=== PATIENT | male | born 1950 | race Caucasian/White ===

== ENCOUNTER → 2017-06-11 11:07 | Outpatient (CLI) | payer MEDICARE, MEDICAID, SELFPAY ==
[2017-06-11 12:09] LABS: PSA,Total - Annual Screen 1.69 ng/mL (0.00-4.00)
== END ==
PROVIDERS: Family Provider Family Medicine Geriatric Medicine; PCP Family Medicine Geriatric Medicine; Visit Provider Urology
DX: Z12.5 Encounter for screening for malignant neoplasm of prostate (principal)
CPT/HCPCS: 36415; 84153; G0103

== ENCOUNTER → 2017-08-28 12:02 | Outpatient (CLI) | payer MEDICARE, MEDICAID, SELFPAY ==
[2017-08-28 13:11] LABS: Absolute Lymphocyte Count 2.52 X10^3/ul (0.83-4.51); Absolute Neutrophil Count 6.2 X10^3/uL (2.0-7.7); Basophil# 0.04 X10^3/uL; Basophil% 0.4 % (0-1); Eosinophil# 0.47 X10^3/uL; Eosinophils% 4.7 % (0-5); Hematocrit 43.8 % (40-54); Lymphocyte # 2.52 X10^3/ul (4.0); Lymphocyte % 25.4 % (19-41); Mean Corp Hgb Conc 34.2 g/gl (32-36); Mean Corpuscular Hgb 32.9 pg (27.0-32.0); Mean Corpuscular Volume 96.1 fL (80-94); Mean Platelet Vol. 10.1 fl (6.2-12.0); Monocyte# 0.62 X10^3/uL; Monocyte% 6.3 % (0-10); Neutrophil # 6.23 X10^3/uL (2.7-7.7); Neutrophil % 62.9 % (47-70); Platelet Count 216 K/mm3 (150-450); RBC Distribution Width CV 13.6 % (11.6-14.6); RBC Distribution Width SD 46.7 fl (35.1-43.9); Red Blood Count 4.56 M/mm3 (4.6-6.2); White Blood Count 9.9 K/mm3 (4.4-11.0)
[2017-08-28 13:12] LABS: POSITIVE COUNT NO; POSITIVE DIFFERENTIAL NO; POSITIVE MORPHOLOGY NO
[2017-08-28 13:33] LABS: AST(SGOT) 9 U/L (15-37); Alanine Aminotransfer ALT/SGPT 20 U/L (16-61); Albumin, Serum 3.6 g/dL (3.2-5.0); Alkaline Phosphatase 80 U/L (45-117); Anion Gap 6 (5-15); BUN 16 mg/dL (7-18); BUN/Creat Ratio 18.2 RATIO (10-20); Calcium,Total 8.6 mg/dL (8.5-10.1); Chloride 109 mmol/L (98-107); Creatinine, Serum 0.88 mg/dL (0.70-1.30); EST Glomerular Filtration Rate 92 mL/min (>60); Est Glom Filt Rate - Afr Amer 111 mL/min (>60); Globulin 3.6 g/dL (2.2-4.2); Glucose 83 mg/dL (74-106); PSA,Total - Annual Screen 1.74 ng/mL (0.00-4.00); Potassium 4.2 mmol/L (3.5-5.1); Protein, Total 7.2 g/dL (6.4-8.2); Sodium Level 143 mmol/L (136-145)
[2017-08-28 13:50] LABS: Vitamin D,25 Hydroxy 19.5 ng/mL (29.95-100.01)
== END ==
PROVIDERS: Family Provider Family Medicine Geriatric Medicine; PCP Family Medicine Geriatric Medicine; Visit Provider Family Medicine Geriatric Medicine
DX: E55.9 Vitamin D deficiency, unspecified (principal); R53.83 Other fatigue; Z12.5 Encounter for screening for malignant neoplasm of prostate
CPT/HCPCS: 36415; 80053; 82306; 84153; 84443; 85025; G0103

== ENCOUNTER → 2017-09-04 06:46 | Outpatient (CLI) | payer MEDICARE, MEDICAID, SELFPAY ==
--- NOTE | 2017-09-04 06:53 | CT_ITS ---
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 RADIATION DOSAGE (If Supplied By Facility): CTDIvol = ( 3.02 ) mGy, DLP = ( 223.48 ) mGycm TECHNIQUE: No contrast was administered. Low dose technique was utilized (average mAS-38 and kVp 120). 1.25 mm axial source images with a slice interval of 1.25-mm were reconstructed in lung windows. 2.5 mm axial source images with a slice interval of 2.5-mm were reconstructed in lung windows. 5.0 mm axial source images with a slice interval of 5.0-mm were reconstructed in soft tissue windows. Nodule measured using lung windows on PACS and/or independent workstation with automated measurement of minimum and maximum diameter. Nodule measurement reported as average diameter rounded to the nearest whole number. Growth is defined as an increase ins size of greater than 1.5 mm. COMPARISON: Comparison is made with prior CT scan of the thorax dated August 31, 2016. NODULES: Stable appearance of the peripherally located nodular densities in the lung apices and upper lobes. This is suggestive of scarring. Emphysema: Emphysematous changes. Stable appearance of the subpleural blebs more prominent in the posterior medial segments of both lower lobes. Mediastinal nodes: Small benign-appearing mediastinal lymph nodes. CT/Low Dose CT Lung Screening IMPRESSION: Lung-RADS category 2 - Continue annual screening with LDCT in 12 months. IMPORTANT NOTES FOR USE: ACR Lung-RADS Version 1.0 Assessment Categories Release Date: August 10, 2013 Category: Coded 0-4 bases on nodule(s) with highest degree of suspicion. Negative screen is defined as categories 1 and 2; a positive screen is defined as categories 3 and 4. Category 3 and 4A nodules that are unchanged on interval CT should be coded as category 2, and individuals returned to screening in 12 months. Category 4X: Category 3 or 4 nodules with additional imaging findings that increase the suspicion of lung cancer, such as spiculation, GGN that doubles in size in 1 year, enlarged lymph notes, etc. Category Modifiers: S (significant finding unrelated to lung cancer) and C (prior history of treated lung cancer) may be added to the 0-4 Lung-RADS Electronically Signed: Daniel Ramos MD at 13:47 EDT Tel [phone], Service support ,
== END ==
PROVIDERS: Family Provider Family Medicine Geriatric Medicine; PCP Family Medicine Geriatric Medicine; Visit Provider Family Medicine Geriatric Medicine
DX: Z87.891 Personal history of nicotine dependence (principal)
CPT/HCPCS: G0297

== ENCOUNTER 2017-12-03 09:17 | Day surgery (SDC) | payer MEDICARE, MEDICAID, SELFPAY ==
[2017-12-03] VITALS (8 sets, daily range): BP systolic 80–110; BP diastolic 53–81; PULSE 67–89; RESP 16–18; TEMP 36.5–36.8; O2SAT 95–100; BMI 21.4
--- NOTE | 2017-12-03 11:50 | PCM.OPRPT ---
Problem List (1) Screen for colon cancer Status: Acute Report of Operation Date of Procedure: 12/03/17 Pre-Operative Diagnosis: Screening colonoscopy Post-Operative Diagnosis: Normal colonoscopy Surgery/Procedure Performed:: Colonoscopy Description of Procedure: The major risks and benefits associated with the procedure were explained to the patient in detail. The patient verbalized understanding and agreement with the same. The patient was brought to the endoscopy suite. After adequate sedation was achieved, the patient was placed in the left lateral decubitus position and a digital rectal exam was performed. This examination was within normal limits. A well-lubricated colonoscope was then inserted into the rectum and advanced under direct visualization to the level of the cecum. The bowel prep was good. The cecum was identified by both visual and anatomic landmarks. A photograph was taken of the end of the cecum. The scope was then fully withdrawn while examining the color, texture, anatomy and integrity of the mucosa from the cecum to the anal canal. The findings were consistent with normal colonic mucosa. Over 6 minutes were taken to examine the colonic mucosa. Upon reaching the rectum the scope was retroflexed to examine the distal rectal vault. The scope was then straightened and was completely retrieved upon exiting the anal canal and the procedure was terminated. The patient was then transferred to the recovery room in stable condition. Recommendations for follow up: 10 years
== END 2017-12-03 12:53 | disposition home or self-care (01) ==
PROVIDERS: Family Provider Family Medicine Geriatric Medicine; PCP Family Medicine Geriatric Medicine; Visit Provider Surgery
PROC: 0DJD8ZZ Inspection of Lower Intestinal Tract, Via Natural or Artificial Opening Endoscopic (ICD-10-PCS; CPT 45378; principal; 2017-12-03 10:40)
DX: Z12.11 Encounter for screening for malignant neoplasm of colon (principal); F41.1 Generalized anxiety disorder; E78.5 Hyperlipidemia, unspecified; F79 Unspecified intellectual disabilities; N32.81 Overactive bladder; F32.9 Major depressive disorder, single episode, unspecified; Z79.899 Other long term (current) drug therapy; F17.200 Nicotine dependence, unspecified, uncomplicated
CPT/HCPCS: G0121; J7120

== ENCOUNTER → 2018-06-13 12:10 | Outpatient (CLI) | payer MEDICARE, MEDICAID, SELFPAY ==
--- NOTE | 2018-06-13 12:21 | CT_ITS ---
STUDY: CT BRAIN WITHOUT CONTRAST REASON FOR EXAM: Male, 68 years old. Delirium. RADIATION DOSAGE (If Supplied By Facility): CTDIvol = ( 44.99 ) mGy, DLP = ( 829.85 ) mGycm TECHNIQUE: Transaxial CT imaging of the brain was performed without administration of intravenous contrast material. Individualized dose optimization techniques were used for this CT. COMPARISON: None. FINDINGS: Normal soft tissue structures. Normal calvarium. There is mild cerebral atrophy with widening of the extra-axial spaces and ventricular dilatation. Normal white matter tracts of the cerebral hemispheres. Normal basal ganglia and thalami. Normal brainstem. Normal cerebellum. There is a 1.2 cm x 0.7 cm partially calcified nodule arising from the left side of the cerebral falx in the region of the convexity of the left frontal parietal lobe. This may represent a small meningioma. There is no intracranial hemorrhage. There are no findings of an acute ischemic infarction. Normal visualized paranasal sinuses. CT/Brain/Head without Contrast IMPRESSION: Chronic involutional changes of the brain. Findings suggestive of a 1.2 cm x 0.7 cm partially calcified meningioma arising from the anterior aspect of the cerebral falx as described. Electronically Signed: Daniel Ramos, at 12:49 EST , Service support ,
[2018-06-13 12:53] LABS: Absolute Lymphocyte Count 2.31 X10^3/ul (0.83-4.51); Absolute Neutrophil Count 5.4 X10^3/uL (2.0-7.7); Basophil# 0.04 X10^3/uL; Basophil% 0.4 % (0-1); Eosinophil# 0.48 X10^3/uL; Eosinophils% 5.4 % (0-5); Hemoglobin 14.2 g/dl (13.0-16.5); Lymphocyte # 2.31 X10^3/ul (4.0); Lymphocyte % 25.9 % (19-41); Mean Corpuscular Hgb 31.8 pg (27.0-32.0); Mean Corpuscular Volume 96.4 fL (80-94); Mean Platelet Vol. 9.7 fl (6.2-12.0); Monocyte# 0.65 X10^3/uL; Monocyte% 7.3 % (0-10); Neutrophil # 5.44 X10^3/uL (2.7-7.7); Neutrophil % 60.9 % (47-70); Platelet Count 183 K/mm3 (150-450); RBC Distribution Width CV 14.1 % (11.6-14.6); RBC Distribution Width SD 49.4 fl (35.1-43.9); Red Blood Count 4.46 M/mm3 (4.6-6.2); White Blood Count 8.9 K/mm3 (4.4-11.0)
[2018-06-13 12:54] LABS: POSITIVE COUNT NO; POSITIVE DIFFERENTIAL NO; POSITIVE MORPHOLOGY NO
[2018-06-13 13:09] LABS: AST(SGOT) 12 U/L (15-37); Alanine Aminotransfer ALT/SGPT 16 U/L (16-61); Albumin, Serum 3.4 g/dL (3.2-5.0); Alkaline Phosphatase 68 U/L (45-117); Anion Gap 4 (5-15); BUN 15 mg/dL (7-18); BUN/Creat Ratio 17.6 RATIO (10-20); Calcium,Total 8.4 mg/dL (8.5-10.1); Chloride 113 mmol/L (98-107); Creatinine, Serum 0.85 mg/dL (0.70-1.30); EST Glomerular Filtration Rate 95 mL/min (>60); Est Glom Filt Rate - Afr Amer 115 mL/min (>60); Globulin 3.4 g/dL (2.2-4.2); Glucose 85 mg/dL (74-106); Potassium 4.4 mmol/L (3.5-5.1); Protein, Total 6.8 g/dL (6.4-8.2); Sodium Level 144 mmol/L (136-145)
== END ==
PROVIDERS: Family Provider Family Medicine Geriatric Medicine; PCP Family Medicine Geriatric Medicine; Referring Provider Family Medicine Geriatric Medicine; Visit Provider Family Medicine Geriatric Medicine
DX: F05 Delirium due to known physiological condition (principal)
CPT/HCPCS: 36415; 70450; 80053; 85025

== ENCOUNTER → 2018-06-24 10:18 | Outpatient (CLI) | payer MEDICARE, MEDICAID, SELFPAY ==
[2017-12-03 09:34] VITALS: BMI 21.4
[2018-06-24 12:21] LABS: PSA,Total- Diagnostic 2.04 ng/mL (0.0-4.0)
== END ==
PROVIDERS: Family Provider Family Medicine Geriatric Medicine; PCP Family Medicine Geriatric Medicine; Referring Provider Urology; Visit Provider Urology
DX: N40.1 Benign prostatic hyperplasia with lower urinary tract symptoms (principal); Z12.5 Encounter for screening for malignant neoplasm of prostate
CPT/HCPCS: 36415; 84153

== ENCOUNTER → 2018-08-29 | Outpatient (CLI) | payer MEDICARE, MEDICAID, SELFPAY ==
[2017-12-03 09:34] VITALS: BMI 21.4
[2018-08-29 13:32] LABS: Absolute Lymphocyte Count 2.36 X10^3/ul (0.83-4.51); Absolute Neutrophil Count 7.1 X10^3/uL (2.0-7.7); Basophil# 0.05 X10^3/uL; Basophil% 0.5 % (0-1); Eosinophil# 0.42 X10^3/uL; Lymphocyte # 2.36 X10^3/ul (4.0); Lymphocyte % 22.2 % (19-41); Mean Corp Hgb Conc 34.1 g/gl (32-36); Mean Corpuscular Hgb 32.5 pg (27.0-32.0); Mean Corpuscular Volume 95.2 fL (80-94); Monocyte# 0.71 X10^3/uL; Monocyte% 6.7 % (0-10); Neutrophil # 7.06 X10^3/uL (2.7-7.7); Neutrophil % 66.4 % (47-70); Platelet Count 233 K/mm3 (150-450); RBC Distribution Width SD 48.9 fl (35.1-43.9); Red Blood Count 4.62 M/mm3 (4.6-6.2); White Blood Count 10.6 K/mm3 (4.4-11.0)
[2018-08-29 13:33] LABS: POSITIVE COUNT NO; POSITIVE DIFFERENTIAL NO; POSITIVE MORPHOLOGY NO
[2018-08-29 13:39] LABS: Vitamin D,25 Hydroxy 9.9 ng/mL (29.95-100.01)
[2018-08-29 13:45] LABS: ALB/GLOB Ratio 0.8 RATIO (0.9-2.4); AST(SGOT) 10 U/L (15-37); Alanine Aminotransfer ALT/SGPT 20 U/L (16-61); Albumin, Serum 3.3 g/dL (3.2-5.0); Alkaline Phosphatase 93 U/L (45-117); Anion Gap 6 (5-15); BUN 20 mg/dL (7-18); BUN/Creat Ratio 19.4 RATIO (10-20); Calcium,Total 8.5 mg/dL (8.5-10.1); Chloride 114 mmol/L (98-107); Creatinine, Serum 1.03 mg/dL (0.70-1.30); EST Glomerular Filtration Rate 76 mL/min (>60); Est Glom Filt Rate - Afr Amer 92 mL/min (>60); Globulin 3.9 g/dL (2.2-4.2); Glucose 71 mg/dL (74-106); PSA,Total - Annual Screen 1.64 ng/mL (0.00-4.00); Potassium 4.1 mmol/L (3.5-5.1); Protein, Total 7.2 g/dL (6.4-8.2); Sodium Level 147 mmol/L (136-145); Thyroid Stim Hormone (TSH) 1.87 uIU/mL (0.358-3.74)
== END | disposition home or self-care (01) ==
LOC: POLAB3 12:03
PROVIDERS: Family Provider Family Medicine Geriatric Medicine; PCP Family Medicine Geriatric Medicine; Visit Provider Family Medicine Geriatric Medicine
DX: E55.9 Vitamin D deficiency, unspecified (principal); R53.83 Other fatigue; Z12.5 Encounter for screening for malignant neoplasm of prostate
CPT/HCPCS: 36415; 80053; 82306; 84153; 84443; 85025; G0103

== ENCOUNTER → 2018-09-25 | Outpatient (CLI) | payer MEDICARE, MEDICAID, SELFPAY ==
[2017-12-03 09:34] VITALS: BMI 21.4
--- NOTE | 2018-09-25 13:07 | CT_ITS ---
STUDY: LOW DOSE CT LUNG CANCER SCREENING REASON FOR EXAM: Male, 68 years old. History of 50 pack-year smoker. RADIATION DOSAGE (If Supplied By Facility): CTDIvol = ( 3.02 ) mGy, DLP = ( 95.91 ) mGycm TECHNIQUE: No contrast was administered. Low dose technique was utilized (average mAS-38 and kVp 120). 1.25 mm axial source images with a slice interval of 1.25-mm were reconstructed in lung windows. 2.5 mm axial source images with a slice interval of 2.5-mm were reconstructed in lung windows. 5.0 mm axial source images with a slice interval of 5.0-mm were reconstructed in soft tissue windows. Nodule measured using lung windows on PACS and/or independent workstation with automated measurement of minimum and maximum diameter. Nodule measurement reported as average diameter rounded to the nearest whole number. Growth is defined as an increase ins size of greater than 1.5 mm. COMPARISON: Comparison is made with prior examination dated September 04, 2017. NODULES: Nodular thickening in the lung apices with subpleural blebs in keeping with the scarring. These are unchanged. Stable 6 mm peripherally based partially calcified nodule in the lateral aspect of the right upper lobe. Stable pleural based soft tissue densities in the lateral aspect of the upper lobes. Emphysema: Bolus changes worse in the superior segment of the left lower lobe. Mild scarring in the right middle lobe. Mediastinal nodes: Small benign-appearing mediastinal lymph nodes. Other chest and abdominal findings: CT/Low Dose CT Lung Screening IMPRESSION: Lung-RADS category 2 - Continue annual screening with LDCT in 12 months. IMPORTANT NOTES FOR USE: ACR Lung-RADS Version 1.0 Assessment Categories Release Date: August 10, 2013 Category: Coded 0-4 bases on nodule(s) with highest degree of suspicion. Negative screen is defined as categories 1 and 2; a positive screen is defined as categories 3 and 4. Category 3 and 4A nodules that are unchanged on interval CT should be coded as category 2, and individuals returned to screening in 12 months. Category 4X: Category 3 or 4 nodules with additional imaging findings that increase the suspicion of lung cancer, such as spiculation, GGN that doubles in size in 1 year, enlarged lymph notes, etc. Category Modifiers: S (significant finding unrelated to lung cancer) and C (prior history of treated lung cancer) may be added to the 0-4 Lung-RADS Electronically Signed: Daniel Ramos, at 13:36 EDT , Service support ,
== END | disposition home or self-care (01) ==
LOC: CT 13:05
PROVIDERS: Family Provider Family Medicine Geriatric Medicine; PCP Family Medicine Geriatric Medicine; Referring Provider Family Medicine Geriatric Medicine; Visit Provider Family Medicine Geriatric Medicine
DX: Z87.891 Personal history of nicotine dependence (principal); F17.200 Nicotine dependence, unspecified, uncomplicated
CPT/HCPCS: G0297

== ENCOUNTER → 2018-11-28 | Outpatient (CLI) | payer MEDICARE, MEDICAID, SELFPAY ==
[2017-12-03 09:34] VITALS: BMI 21.4
== END | disposition home or self-care (01) ==
PROVIDERS: Family Provider Family Medicine Geriatric Medicine; PCP Family Medicine Geriatric Medicine; Referring Provider Family Medicine Geriatric Medicine; Visit Provider Family Medicine Geriatric Medicine
DX: Z00.00 Encounter for general adult medical examination without abnormal findings (principal)

== ENCOUNTER → 2019-03-17 15:21 | Outpatient (CLI) | payer MEDICARE, MEDICAID, SELFPAY ==
[2017-12-03 09:34] VITALS: BMI 21.4
[2019-03-17 16:53] LABS: PSA,Total- Diagnostic 2.02 ng/mL (0.0-4.0)
== END ==
PROVIDERS: Family Provider Family Medicine Geriatric Medicine; PCP Family Medicine Geriatric Medicine; Referring Provider Urology; Visit Provider Urology
DX: N40.1 Benign prostatic hyperplasia with lower urinary tract symptoms (principal); R35.0 Frequency of micturition
CPT/HCPCS: 36415; 84153

== ENCOUNTER → 2019-12-15 | Outpatient (CLI) | payer MEDICARE, MEDICAID, SELFPAY ==
[2019-12-15 18:28] LABS: Color, Urine Yellow (Yellow); Glucose, Dipstick Normal (Normal); Ketone-Dipstick 5 mg/dl (Negative); Leukocyte Esterase-Dipstick 500 /ul (Negative); Nitrite-Dipstick Negative (Negative); Occult Blood-Urine 250 /ul (Negative); Protein-Dipstick 100 mg/dl (Negative); Urine Bilirubin Dipstick Negative (Negative); Urine Clarity Sl. Cloudy (Clear); Urine Urobilinogen Normal (Normal)
== END | disposition home or self-care (01) ==
LOC: LABSPEC 17:08
PROVIDERS: PCP Family Medicine; Referring Provider Family Medicine; Visit Provider Family Medicine
DX: R30.0 Dysuria (principal)
CPT/HCPCS: 81002; 87086; 87088

== ENCOUNTER → 2020-01-14 14:11 | Outpatient (CLI) | payer MEDICARE, MEDICAID, SELFPAY ==
--- NOTE | 2020-01-14 14:19 | CT_ITS ---
STUDY: LOW DOSE CT LUNG CANCER SCREENING REASON FOR EXAM: Male, 69 years old. LUNG SCREENING, 2 ppd x 40 yrs. RADIATION DOSAGE (If Supplied By Facility): CTDIvol = ( 3.02 ) mGy, DLP = ( 96.28 ) mGycm TECHNIQUE: No contrast was administered. Low dose technique was utilized (average mAS-38 and kVp 120). 1.25 mm axial source images with a slice interval of 1.25-mm were reconstructed in lung windows. 2.5 mm axial source images with a slice interval of 2.5-mm were reconstructed in lung windows. 5.0 mm axial source images with a slice interval of 5.0-mm were reconstructed in soft tissue windows. Nodule measured using lung windows on PACS and/or independent workstation with automated measurement of minimum and maximum diameter. Nodule measurement reported as average diameter rounded to the nearest whole number. Growth is defined as an increase ins size of greater than 1.5 mm. COMPARISON: Comparison is made with prior study dated 09/25/2008. NODULES: Irregular nodular densities in both lung apices with areas of scarring suggestive of scarring. Stable examination. Emphysema: Hyperinflation. Emphysematous changes with evidence of bullous formation more prominent in the medial posterior aspects of both upper lobes worse on the left side. Endobronchial lesion: None Aorta: Minimal dilatation of the root of the aorta measuring 4.1 cm. Coronary arteries: Unremarkable. Heart: Unremarkable. Mediastinal nodes: Small mediastinal lymph nodes. Other chest and abdominal findings: Mild degenerative changes of the thoracic spine. CT/Chest without Contrast IMPRESSION: Lung-RADS category 2 - Continue annual screening with LDCT in 12 months. IMPORTANT NOTES FOR USE: ACR Lung-RADS Version 1.0 Assessment Categories Release Date: August 10, 2013 Category: Coded 0-4 bases on nodule(s) with highest degree of suspicion. Negative screen is defined as categories 1 and 2; a positive screen is defined as categories 3 and 4. Category 3 and 4A nodules that are unchanged on interval CT should be coded as category 2, and individuals returned to screening in 12 months. Category 4X: Category 3 or 4 nodules with additional imaging findings that increase the suspicion of lung cancer, such as spiculation, GGN that doubles in size in 1 year, enlarged lymph notes, etc. Category Modifiers: S (significant finding unrelated to lung cancer) and C (prior history of treated lung cancer) may be added to the 0-4 Lung-RADS Electronically Signed: Daniel Ramos, at 15:05 EDT , Service support ,
== END ==
PROVIDERS: PCP Family Medicine; Referring Provider Family Medicine; Visit Provider Family Medicine
DX: Z12.2 Encounter for screening for malignant neoplasm of respiratory organs (principal); F17.210 Nicotine dependence, cigarettes, uncomplicated
CPT/HCPCS: 71250

== ENCOUNTER → 2020-12-29 09:35 | Outpatient (CLI) | payer MEDICARE, MEDICAID, SELFPAY ==
[2020-12-29 11:15] LABS: PSA,Total - Annual Screen 1.87 ng/mL (0.00-4.00)
== END ==
PROVIDERS: PCP Family Medicine; Referring Provider Urology; Visit Provider Urology
DX: R35.0 Frequency of micturition (principal); Z12.5 Encounter for screening for malignant neoplasm of prostate
CPT/HCPCS: 36415; 84153; 87086; 87088; G0103

== ENCOUNTER → 2021-01-11 06:38 | Outpatient (CLI) | payer MEDICARE, MEDICAID, SELFPAY ==
--- NOTE | 2021-01-11 17:39 | STRESSREP_ITS ---
Stress Test Report Date: 01-11-2021 Procedure: Pharmacologic stress nuclear imaging study Indications: Chest pain Consent: Per the patient Procedure: The patient underwent pharmacologic (Regadenoson 0.4mg ) evaluation with a peak heart rate of 104 beats per minute (69%predicted maximal heart rate) and a peak blood pressure of 142/88 mmHg. The baseline ECG demonstrated sinus rhythm. The peak pharmacologic ECG demonstrated no obvious ECG changes. [There were no cardiac dysrhythmias pretest, during pharmacologic infusion, or recovery]. [There was no complaint of chest discomfort during pharmacologic infusion or recovery]. The examination was discontinued secondary to completion of protocol. Impression: 1. Pharmacologic (Regadenoson) evaluation 2. Peak pharmacologic ECG with no obvious ECG changes. 3. [There were no cardiac dysrhythmias pretest, during pharmacologic infusion, or recovery]. 4. Nuclear images pending Myocardial perfusion imaging study: Technique: The patient was injected with 14.4 millicuries of technetium 99m Cardiolite and subsequently rest SPECT Cardiolite nuclear imaging was obtained in the horizontal long, vertical long, and short axis views. The patient underwent pharmacologic (Regadenoson) evaluation with a peak heart rate of 104 beats per minute (69% percent predicted maximal heart rate) and a peak blood pressure of 142/88 mmHg. The patient was injected with 44.8 millicuries of technetium 99m Cardiolite and subsequently stress SPECT Cardiolite nuclear imaging was obtained in the horizontal long, vertical long, and short axis views. A gated Cardiolite study at peak stress was obtained. Interpretation: Rest and stress SPECT Cardiolite nuclear imaging status post realignment, normalization, and attenuation correction demonstrate evidence of body motion during image acquisition and otherwise relative uniform tracer uptake and myocardial perfusion appearing within normal limits. [There is end systolic thickening and brightening]. [The gated Cardiolite study demonstrates myocardial thickening and inward wall motion]. The reported LVEF is 65%. Impression: 1. [Rest and stress SPECT Cardiolite nuclear imaging demonstrate relative uniform tracer uptake and myocardial perfusion appearing within normal limits]. 2. The gated Cardiolite study reports an LVEF of 65%. This note was generated with [employer] software. It may contain incorrect words, spelling, and punctuation that were not noted in checking the note before signing.
== END ==
PROVIDERS: PCP Family Medicine; Referring Provider Family Medicine; Visit Provider Family Medicine
DX: R07.9 Chest pain, unspecified (principal)
CPT/HCPCS: 78452; 93017; A9500; A4216; J2785

== ENCOUNTER → 2021-12-26 | Outpatient (CLI) | payer MEDICARE, MEDICAID, SELFPAY ==
[2021-12-26 15:16] LABS: Absolute Lymphocyte Count 1.91 X10^3/uL (0.83-4.51); Absolute Neutrophil Count 5.9 X10^3/uL (2.0-7.7); Basophil# 0.06 X10^3/uL; Basophil% 0.7 % (0-1); Eosinophil# 0.34 X10^3/uL; Eosinophils% 3.9 % (0-5); Hematocrit 43.4 % (40-54); Hemoglobin 14.6 g/dL (13.0-16.5); Lymphocyte # 1.91 X10^3/ul (0.83-4.51); Lymphocyte % 21.7 % (19-41); Mean Corp Hgb Conc 33.6 g/dL (32-36); Mean Corpuscular Hgb 32.4 pg (27.0-32.0); Mean Corpuscular Volume 96.4 fL (80-94); Mean Platelet Vol. 10.1 fl (6.2-12.0); Monocyte# 0.54 X10^3/uL; Monocyte% 6.1 % (0-10); NRBC Flagged by Analyzer 0 % (0-5); Neutrophil % 67.1 % (47-70); Platelet Count 264 K/mm3 (150-450); RBC Distribution Width CV 13.4 % (11.6-14.6); RBC Distribution Width SD 47.6 fl (35.1-43.9); White Blood Count 8.8 K/mm3 (4.4-11.0)
[2021-12-26 15:22] LABS: Color, Urine Yellow (Yellow); Glucose, Dipstick Normal (Normal); Ketone-Dipstick Negative (Negative); Leukocyte Esterase-Dipstick 25 /ul (Negative); Nitrite-Dipstick Negative (Negative); Occult Blood-Urine Negative /ul (Negative); Protein-Dipstick 15 mg/dl (Negative); Urine Bilirubin Dipstick Negative (Negative); Urine Clarity Sl. Cloudy (Clear); Urine Urobilinogen Normal (Normal)
[2021-12-26 15:44] LABS: Vitamin B12 414 pg/mL (211-911)
[2021-12-26 16:00] LABS: ALB/GLOB Ratio 0.9 RATIO (0.9-2.4); AST(SGOT) 13 U/L (15-37); Alanine Aminotransfer ALT/SGPT 20 U/L (16-61); Albumin, Serum 3.5 g/dL (3.2-5.0); Alkaline Phosphatase 84 U/L (45-117); Anion Gap 5 (5-15); BUN 14 mg/dL (7-18); BUN/Creat Ratio 15.1 RATIO (10-20); Calcium,Total 8.8 mg/dL (8.5-10.1); Chloride 109 mmol/L (98-107); Creatinine, Serum 0.93 mg/dL (0.70-1.30); EST Glomerular Filtration Rate 85 mL/min (>60); Est Glom Filt Rate - Afr Amer 103 mL/min (>60); Globulin 3.8 g/dL (2.2-4.2); Glucose 98 mg/dL (74-106); Potassium 4.3 mmol/L (3.5-5.1); Protein, Total 7.3 g/dL (6.4-8.2); Sodium Level 143 mmol/L (136-145); Thyroid Stim Hormone (TSH) 1.92 uIU/mL (0.358-3.74)
== END | disposition home or self-care (01) ==
LOC: MTLAB 11:17
PROVIDERS: PCP Family Medicine; Referring Provider Family Medicine; Visit Provider Family Medicine
DX: Z00.00 Encounter for general adult medical examination without abnormal findings (principal); F03.90 Unspecified dementia, unspecified severity, without behavioral disturbance, psychotic disturbance, mood disturbance, and anxiety; Q86.0 Fetal alcohol syndrome (dysmorphic); N40.0 Benign prostatic hyperplasia without lower urinary tract symptoms; R32 Unspecified urinary incontinence
CPT/HCPCS: 36415; 80053; 81002; 82607; 84443; 85025; 87086; 87088

== ENCOUNTER → 2022-01-01 | Outpatient (CLI) | payer MEDICARE, MEDICAID, SELFPAY ==
--- NOTE | 2022-01-01 08:07 | CT_ITS ---
STUDY: LOW DOSE CT LUNG CANCER SCREENING REASON FOR EXAM: Male, 71 years old. TOBACCO USE RADIATION DOSAGE (If Supplied By Facility): CTDIvol = ( 2.39 ) mGy, DLP = ( 75.34 ) mGycm TECHNIQUE: No contrast was administered. Low dose technique was utilized (average mAS-38 and kVp 120). 1.25 mm axial source images with a slice interval of 1.25-mm were reconstructed in lung windows. 2.5 mm axial source images with a slice interval of 2.5-mm were reconstructed in lung windows. 5.0 mm axial source images with a slice interval of 5.0-mm were reconstructed in soft tissue windows. COMPARISON: 01/14/2020 Emphysema: Moderate bilateral apical scarring. Mild emphysema with some subpleural blebs. No noncalcified nodule or mass. Endobronchial lesion: None Aorta: No aortic aneurysm. CORONARY ARTERIES: Coronary artery calcification is not seen. Heart: No cardiomegaly. Pulmonary artery: Normal Mediastinal nodes: Normal Other chest and abdominal findings: None CT/Low Dose CT Lung Screening IMPRESSION: Lung-RADS category 1 - Continue annual screening with LDCT in 12 months. IMPORTANT NOTES FOR USE: ACR Lung-RADS Version 1.1 Assessment Categories Release Date: 2018 Category: Coded 0-4 bases on nodule(s) with highest degree of suspicion. Negative screen is defined as categories 1 and 2; a positive screen is defined as categories 3 and 4. Category 3 and 4A nodules that are unchanged on interval CT should be coded as category 2, and individuals returned to screening in 12 months. Category 4X: Category 3 or 4 nodules with additional imaging findings that increase the suspicion of lung cancer, such as spiculation, GGN that doubles in size in 1 year, enlarged lymph notes, etc. Category Modifiers: S (significant finding unrelated to lung cancer) Electronically Signed: Micah Paz MD at 10:54 EDT ,
== END | disposition home or self-care (01) ==
LOC: CT 08:05
PROVIDERS: PCP Family Medicine; Referring Provider Family Medicine; Visit Provider Family Medicine
DX: Z12.2 Encounter for screening for malignant neoplasm of respiratory organs (principal); F17.210 Nicotine dependence, cigarettes, uncomplicated
CPT/HCPCS: 71271

== ENCOUNTER → 2022-01-16 | Outpatient (CLI) | payer MEDICARE, MEDICAID, SELFPAY | END | disposition home or self-care (01) | PROVIDERS: PCP Family Medicine; Visit Provider Urology | DX: Z12.5 Encounter for screening for malignant neoplasm of prostate (principal) | CPT/HCPCS: 36415; 84153; G0103 ==

== ENCOUNTER → 2022-02-10 | Outpatient (CLI) | payer MEDICARE, MEDICAID, SELFPAY ==
--- NOTE | 2022-02-10 09:00 | CT_ITS ---
HISTORY: MENINGIOMA, BEHAVIOR CHANGE. TECHNIQUE: Multiple axial images were obtained of the head without intravenous contrast. A radiation dose optimization technique was used for this scan. 259 images. COMPARISON: 06/13/2018. FINDINGS: BRAIN PARENCHYMA: Multiple foci and zones of low attenuation in the bilateral cerebral white matter compatible with chronic small vessel ischemic gliosis. No acute intra-axial hemorrhage identified. CSF SPACES: Stable 7 x 9 mm partially calcified left parafalcine extra-axial lesion Generalized volume loss. No midline shift or other significant mass effect. No acute extra-axial hemorrhage seen. OTHER: Intact calvarium. Fluid and mucosal thickening in the left frontal, left sphenoid, bilateral maxillary sinuses, and ethmoid air cells. Unremarkable orbital contents. CT/Brain/Head without Contrast IMPRESSION: No significant interval change in size of small left parasagittal meningioma. Pansinusitis. No acute intracranial process identified. Chronic small vessel ischemic gliosis. Electronically Signed: Dodie Zepeda MD at 9:29 EDT ,
== END | disposition home or self-care (01) ==
LOC: CT 08:51
PROVIDERS: PCP Family Medicine; Visit Provider Family Medicine
DX: D32.9 Benign neoplasm of meninges, unspecified (principal); Q86.0 Fetal alcohol syndrome (dysmorphic)
CPT/HCPCS: 70450

== ENCOUNTER → 2023-01-01 | Outpatient (CLI) | payer MEDICARE, MEDICAID, SELFPAY ==
[2023-01-01 15:32] LABS: Absolute Lymphocyte Count 2.17 X10^3/uL (0.83-4.51); Basophil# 0.06 X10^3/uL; Basophil% 0.6 % (0-1); Eosinophil# 0.22 X10^3/uL; Eosinophils% 2.2 % (0-5); Hematocrit 45.8 % (40-54); Hemoglobin 15.5 g/dL (13.0-16.5); Lymphocyte # 2.17 X10^3/ul (0.83-4.51); Lymphocyte % 21.6 % (19-41); Mean Corp Hgb Conc 33.8 g/dL (32-36); Mean Corpuscular Hgb 33.2 pg (27.0-32.0); Mean Corpuscular Volume 98.1 fL (80-94); Mean Platelet Vol. 10.2 fl (6.2-12.0); Monocyte# 0.62 X10^3/uL; Monocyte% 6.2 % (0-10); NRBC Flagged by Analyzer 0 % (0-5); Neutrophil # 6.96 X10^3/uL (2.7-7.7); Neutrophil % 69.1 % (47-70); Platelet Count 253 K/mm3 (150-450); RBC Distribution Width CV 13.3 % (11.6-14.6); RBC Distribution Width SD 48.8 fl (35.1-43.9); Red Blood Count 4.67 M/mm3 (4.6-6.2); White Blood Count 10.1 K/mm3 (4.4-11.0)
[2023-01-01 16:07] LABS: Vitamin B12 351 pg/mL (211-911)
[2023-01-01 16:17] LABS: ALB/GLOB Ratio 0.9 RATIO (0.9-2.4); AST(SGOT) 15 U/L (15-37); Alanine Aminotransfer ALT/SGPT 24 U/L (16-61); Albumin, Serum 3.5 g/dL (3.2-5.0); Alkaline Phosphatase 77 U/L (45-117); Anion Gap 5 (5-15); BUN 18 mg/dL (7-18); BUN/Creat Ratio 18.9 RATIO (10-20); Calcium,Total 8.9 mg/dL (8.5-10.1); Chloride 110 mmol/L (98-107); Cholesterol 132 mg/dL (200); Creatinine, Serum 0.95 mg/dL (0.70-1.30); EST Glomerular Filtration Rate 82 mL/min (>60); Est Glom Filt Rate - Afr Amer 100 mL/min (>60); Globulin 3.7 g/dL (2.2-4.2); Glucose 96 mg/dL (74-106); High Density Lipoprotein 36 mg/dL; PSA,Total - Annual Screen 1.53 ng/mL (0.00-4.00); Potassium 4.5 mmol/L (3.5-5.1); Protein, Total 7.2 g/dL (6.4-8.2); Sodium Level 142 mmol/L (136-145); Triglycerides 87 mg/dL; Very Low Density Lipoprotein 17 mg/dL (5-40)
== END | disposition home or self-care (01) ==
LOC: BFHLAB 11:15
PROVIDERS: PCP Family Medicine; Referring Provider Family Medicine; Visit Provider Family Medicine
DX: Z00.00 Encounter for general adult medical examination without abnormal findings (principal); F03.90 Unspecified dementia, unspecified severity, without behavioral disturbance, psychotic disturbance, mood disturbance, and anxiety; Q86.0 Fetal alcohol syndrome (dysmorphic); N40.0 Benign prostatic hyperplasia without lower urinary tract symptoms; E78.5 Hyperlipidemia, unspecified
CPT/HCPCS: 36415; 80053; 80061; 82607; 84153; 84443; 85025; G0103

== ENCOUNTER → 2023-03-28 | Outpatient (CLI) | payer MEDICARE, MEDICAID, SELFPAY ==
--- NOTE | 2023-03-28 12:49 | CT_ITS ---
STUDY: LOW DOSE CT LUNG CANCER SCREENING REASON FOR EXAM: Male, 72 years old. NICOTINE ABUSE. Patient smoked 1 pack per day for 60 years. RADIATION DOSAGE (If Supplied By Facility): CTDIvol = ( 3.02 ) mGy, DLP = ( 96.28 ) mGycm TECHNIQUE: No contrast was administered. Low dose technique was utilized (average mAS-38 and kVp 120). 1.25 mm axial source images with a slice interval of 1.25-mm were reconstructed in lung windows. 2.5 mm axial source images with a slice interval of 2.5-mm were reconstructed in lung windows. 5.0 mm axial source images with a slice interval of 5.0-mm were reconstructed in soft tissue windows. COMPARISON: Comparison is made with prior study dated January 01, 2022. NODULES: No suspicious nodule is seen. Emphysema: Emphysematous changes. Stable bilateral apical scarring. Stable irregular scarring along the lateral aspect of the left upper lobe. Endobronchial lesion: None Aorta: Unremarkable CORONARY ARTERIES: Coronary artery calcification is not seen. Heart: Unremarkable Pulmonary artery: Unremarkable Mediastinal nodes: Small mediastinal lymph nodes. Other chest and abdominal findings: CT/Low Dose CT Lung Screening IMPRESSION: Lung-RADS category 2 - Continue annual screening with LDCT in 12 months. IMPORTANT NOTES FOR USE: ACR Lung-RADS Version 1.1 Assessment Categories Release Date: 2018 Category: Coded 0-4 bases on nodule(s) with highest degree of suspicion. Negative screen is defined as categories 1 and 2; a positive screen is defined as categories 3 and 4. Category 3 and 4A nodules that are unchanged on interval CT should be coded as category 2, and individuals returned to screening in 12 months. Category 4X: Category 3 or 4 nodules with additional imaging findings that increase the suspicion of lung cancer, such as spiculation, GGN that doubles in size in 1 year, enlarged lymph notes, etc. Category Modifiers: S (significant finding unrelated to lung cancer) Electronically Signed: Daniel Ramos MD at 14:13 EST ,
== END | disposition home or self-care (01) ==
LOC: CT 12:48
PROVIDERS: PCP Family Medicine; Referring Provider Family Medicine; Visit Provider Family Medicine
DX: F17.210 Nicotine dependence, cigarettes, uncomplicated (principal)
CPT/HCPCS: 71271

== ENCOUNTER → 2023-06-07 | Outpatient (CLI) | payer MEDICARE, MEDICAID, SELFPAY ==
--- OUTSIDE RECORDS SUMMARY | 2023-06-07 12:12 | XMS RPT_ITS | CCD ---
Author Name Unknown Address [address] [place] [address] Organization [facility] Care Team Providers Care Cleaning Technician Name Role Phone SOFI YOON, DR PERKINS Primary Care Physician Kim Hutchinson Primary Care Provider GARTH MORENO Attending Unavailable KIM HUTCHINSON Primary Care Unavailabl e Medications Current Medications Medication Drug Class(es) Dates Sig (Normalized) Sig (Original) busPIRone hydrochloride 10 mg oral tablet (2 sources) Start: 06-16-2019 busPIRone 10 mg oral tablet Dose : 10 mg = 1 tab(s), Oral, TID, 0 Refill(s) Start Date: 06/16/19 Status: Ordered Completed/Discontinued Medications Medication Drug Class(es) Dates Sig (Normalized) Sig (Original) amoxicillin 80 mg/ml oral suspension (1 source) Penicillin-class Antibacterial Start: 01-10-2016 End: 03-06-2022 take 10 mL by mouth twice daily amoxicillin (AMOXIL) 400 mg/5 mL suspension Indications: Acute serous otitis media of left ear, recurrence not specified Take 10 ml by mouth twice daily x 10 days. 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 Anxiety disorders (2 sources) Generalized anxiety disorder; Translations: [Generalized anxiety disorder] Onset: 06-27-2006 Chronic Developmental disorders (2 sources) Intellectual disability; Translations: [Unspecified intellectual disabilities] Onset: 06-27-2006 Chronic Genitourinary symptoms and ill-defined conditions (2 sources) Incontinence; Translations: [Mixed incontinence] Onset: 03-02-2008 Chronic Mood disorders (2 sources) Major depressive disorder; Translations: [Major depressive disorder, single episode, unspecified] Onset: 06-27-2006 Chronic Other and unspecified benign neoplasm (1 source) Neoplasm of meninges; Translations: [Benign neoplasm of meninges, unspecified] Onset: 10-22-2018 10-22-2018 Chronic Other diseases of bladder and urethra (1 source) Detrusor and sphincter dyssynergia; 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] Onset: 03-02-2008 03-02-2008 Chronic Other nutritional; endocrine; and metabolic disorders (1 source) Developmental delay; Translations: [Unspecified lack of expected normal physiological development in childhood] Episodic Other upper respiratory disease (1 source) Allergic rhinitis; Translations: [Allergic rhinitis, unspecified] Onset: 06-27-2006 06-27-2006 Chronic Past or Other Problems Problem Classification Problem Date Documented Da te Episodic/Chronic Lymphadenitis (1 source) Lymphadenopathy ; Translations: [Enlarged lymph nodes, unspecified] Onset: 03-28-2006 03-28-2006 Episodic Other gastrointestinal disorders (1 source) Diarrhea; Translations: [Diarrhea, unspecified] Onset: 11-26-2007 11-26-2007 Episodic Other nutritional; endocrine; and metabolic disorders (1 source) Weight loss; Translations: [Abnormal weight loss] Onset: 11-26-2007 11-26-2007 Episodic Results Test Name Value Interpretation Reference Range Facil ity Vital Signs Date Time Vital Sign Value Performing Clinician Timi jillian 03-06-2022 08:35-0500 Body weight 75.89 kg Garth Moreno MD Work Phone: [facility] 03-06-2022 08:35-0500 Diastolic blood pressure 69 mm[Hg] Garth Moreno MD Work Phone: [facility] 03-06-2022 08:35-0500 Heart rate 82 /min Garth Moreno MD Work Phone: [facility] 03-06-2022 08:35-0500 Systolic blood pressure 109 mm[Hg] Garth Moreno MD Work Phone: [facility] Encounters Encounter Date Encounter Type Care Provider Facility Start: 03-06-2022 End: 03-07-2022 ambulatory GARTH MORENO Facility:[facility] Start: 03-06-2022 End: 03-06-2022 Patient encounter procedure Garth Moreno MD Work Phone: Geriatrics Procedures Date Procedure Procedure Detail Performing Clinician Start: 12-04-2007 Colonoscopy Garth obrien MD Work Phone: Plan of Treatment Date Care Activity Detail Author Start: 12-14-2021 Influenza vaccination INFLUENZA (#1) [facility] Start: 04-15-2021 ADVANCE DIRECTIVE DISCUSSION ADVANCE DIRECTIVE DISCUSSION [facility] Start: 12-03-2017 Colonoscopy COLONOSCOPY [facility] Start: 12-03-2017 COLORECTAL CANCER SCREENING COLORECTAL CANCER SCREENING [facility] Start: 07-24-2011 LIPID SCREEN LIPID SCREEN [facility] Start: 07-02-2011 DIABETES SCREEN DIABETES SCREEN [facility] Start: 2000 SHINGRIX VACCINE (1 of 2) SHINGRIX V ACCINE (1 of 2) [facility] Start: 1995 COLOGUARD (FIT-DNA) COLOGUARD (FIT-D NA) [facility] Start: [address] COLONOGRAPHY [facility] Start: 1995 FECAL OCCULT BLOOD FECAL OCCULT BLOO D [facility] Start: 1995 SIGMOIDOSCOPY SIGMOIDOSCOPY [facility] Start: 1969 Urine microalbumin profile DTAP,TDAP ,TD (1 - Tdap) [facility] Start: 1968 HEPATITIS C SCREENING HEPATITIS C SC REERAVEN [facility] Start: 1956 PNEUMOCOCCAL: 65+ (1 - PCV) PNEUMOCOCCAL: 65+ (1 - PCV) [facility] Start: 1950 COVID-19 VACCINE (#1) COVID-19 VACCI NE (#1) [facility] Start: 1950 ABDOMINAL AORTIC ANE URYSM SCREENING ABDOMINAL AORTIC ANEURYSM SCREENING [facility] Immunizations Immunization Date Immunization Notes Care Provider Fa cility 03-17-2008 influenza virus vaccine, unspecified formulation Garth Moreno MD Work Phone: [facility] Work Phone: 02-14-2006 influenza virus vaccine, unspecified formulation Garth Moreno MD Work Phone: [facility] Work Phone: Payers Date Payer Category Payer Medicaid MEDICAID [facility] MEDICAID [id number] 2015-Present [phone] [address] [place] [address] Medicaid [id number] 2015 Medicaid [id number] 1990 Medicare MEDICARE MEDICAR E A AND B [id number] 1990-Present [phone] [place] [address] Medicare [id number] 1990 Medicare [id number] Social History Date Type Detail Facility Start: 04-03-2019 Tobacco smoking status Heavy t obacco smoker (finding) [facility] Sex Assigned At Sex [facility] Start: 03-06-2022 Tobacco smoking stat us KYIS Smokes tobacco daily [facility] History of tobacco use Cigarette Smoker [facility] Start: 03-06-2022 Cigarettes smoked cu rrent (pack per day) - Reported 0.5 [facility] Start: 03-06-2022 Tobacco use and exposure Smoke less tobacco non-user [facility] Start: 03-06-2022 Alcohol intake Current non-dr chemical supervisor of alcohol (finding) [facility] Start: 03-06-2022 Tobacco Comment maybe longer s moke hx difficult to asses [facility] Start: 1950 Sex Assigned At Not on file [facility] Start: 02-24-2022 End: 03-06-2022 Exposure to SARS-CoV-2 (event) Not sure [facility] Progress note 03-06-2022 Note Date & Type Note Facility 03-06-2022 Note HNO ID: [id number] Author: Garth Moreno MD Service: ? Author Type: Physician Type: Progress Notes Filed: 03/06/2022 2:36 PM Note Text: TEACHING PHYSICIAN NOTE OF PERSONAL INVOLVEMENT IN CARE: I have personally seen and examined the patient and performed the medical decision-making components. I have reviewed the medical student documentation and verified the findings in the note as written. (Q86.0) alcohol syndrome (primary encounter diagnosis) (R62.50) Development delay (F79) Unspecified intellectual disabilities (N39.46) Mixed 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) (F32.9) Major depressive disorder, remission status unspecified, unspecified whether recurrent (F41.1) SYED (generalized anxiety disorder) Here with Josefina, pre school manager at the assisted - has only known him few months. Unable to tell me details about his baseline cognition/behaviors or recent changes in these. Has sheet of meds, has psychiatrist. They need form completed - a psych eval. Unclear why his psychiatrist who has known him for years does not complete it Has been sleeping much later, waking later in day Living in past a lot, used to be homeless and talks about that (or someone dying) as if it is in the present Memory and orientation have gotten progressively worse. Starting to get aggressive - mainly since November. May yell at people, threaten to hit them with chain on his wallet. Has hit samuels, but has not hit any people May be having visual hallucinations - bec/ he talks and screams when in bathroom alone. Appt was recommended by the psychiatrist - due to the dementia Has meningioma about 10mm in size - which has changed minimally over the years. Had CTH last month. We dont have results. Had labs couple months ago. We dont have results. Pt is minimally verbal and unable to give history. Denies any pain, denies feeling sad or down. Per medlist, current psychoactive meds include: Aricept 5 (unclear why not on 10), gabap 100bid (unclear of indication), seroquel 25bid (recently decreased from 50bid - unclear why), Buspar 20tid, lexapro 20. Also takes oxybutynin 10 - but often uses his diaper. Head at assisted = Fany Lund [phone]. Pt's psychiatrist = Dr Maria [phone]. Neuropsych = Kenji Arevalo We reviewed medlist from facility, and updated and reconciled all current meds in [facility]. I would need to find out more history, especially about what medications have been tried, what has failed, and why - before I can make useful recommendations. Would like to see recent labs - will call facility to see what has been done and order additional if indicated. Please give the psychiatry form to the Psychiatrist who knows him to complete. Most likely, we can start by increasing Aricept to 10mg (unless there had been a problem on this dose) If essentially incontinent, would stop the anticholinergic medication - Oxybutynin, as risks may outweigh benefits. Would consider decrease Lexapro to 10mg - which is max recommended dose at this age and about as effective as 20mg. I will try to touch base with provider at assisted to see what else we can do. Advised to follow up as needed. I called Dr Maria [phone], was on hold >10min, spoke w/ someone who couldn't find this pt in system, gave them my number to call me back in case I could be of further help. Signature: Garth Moreno MD Date: 02/20/2018 Time: 9:40 AM [facility] Progress note 03-06-2022 Note Date & Type Note Facility 03-06-2022 Note HNO ID: [id number] Author: Garth Moreno MD Service: ? Author Type: Physician Type: Progress Notes Filed: 03/06/2022 2:36 PM Note Text: Renny Russo is a 71 year old White male here for a new consult. Pt accompanied by: guardian Brought in pill bottles?: no Consult Requested By: Psychiatrist? 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 Brief Epic review: Per Neurosugery 12/22/2019: 1. Meningioma (HCC) Stable meningioma on repeat 1 yr imaging, measures 8 mm in diameter Given the small size and stability over the last year, will f/up with repeat CT brain w/wo in 5 yrs. Should there be any concerns prior to that, will arrange repeat imaging at an earlier time. HPI: Per Guardian/director group sales (been with group since August) Since end of November: - Patient is sundowning in PM. Staying up later and sleeping in later. Still getting adequate restful sleep - Patient is living in the past and not the present in terms of recall. Will talk about past events as if it were the present. - Needs more reminding to perform basic activities of daily living like drinking and toileting. Increased frequency of urinary and fecal incontinence - Some confusion. Mentions having had a seizure but it was actually someone else - Increased hatefulness. Yells at people and threatens people. Threatened to hit people with chain on wallet. Punched wall during bathing time. Hasn't been violent with any people though. Always been an issue but has been getting worse. - Quetiapine 50 -> 25 mg last month per Psych. Doing well. - Hallucinations daily. Will be yelling at someone when alone in the restroom or bedroom - Always had some paranoia due to history of homelessness. Stable - Had fasting labs in December and updated MRI brain in January. Per patient: - Feeling good last couple months - Doesn't report mood disturbances - Nothing he is worried about Patient's allergies, medications, and Past, Family and Social history have been reviewed with the patient, and updated as appropriate. Please see relevant sections in [employer] EHR for details Current living environment: assisted Review of Systems: Is dependent or requires assistance in the following BADL: none but needs reminders Ambulatory c? cane / walker: None at assisted but uses wheelchair when traveling long distances Is dependent or requires assistance in the following Instrumental ADL: managing medications, shopping, driving Activity: Tobacco: 0.5-1 pack per day ETOH: no Weight change: no Appetite: yes Difficulty chew/swallow: no Heartburn? no Constipation, diarrhea, or change in bowel habits? Sometimes has accidents Night sweats/fever: no Skin: no Hearing: has hearing aids but doesn't wear them Vision: see ophtho regularly Dyspnea? no Chest Pain? no Orthopnea? no PND? no Edema? no UI - yes Nocturia - no Pain? no Falls? no Memory? See HPI Tremor? no Mood: See HPI Sleep: current pattern: See HPI Indicat of Abuse/Neglect/exploitation?no PE: see Vitals Gen: Thin, NAD, responsive to questions, orientated to self but not place or time Head: NC/AT Eyes: PERRL, EOMI. ENT: TM's +LR b/l, Dentition: Oropharyx: clear Neck: supple. n.t.,, no L.N.s, Thyroid not enlarged Respiratory: CTA jenna, no w,r,r Heart: RRR, S1,S2, no murmurs ABD: soft, nt, +bs Extr: NT, No edema, pulses present Skin: No ulcers, pressure sores, rash Digits/nails: nl Gait: Cannot get up with arms folded; wide based gate with short steppage, minimal arm swing, unable to turn sharp corner Muscle bulk: nl Contractures: none Neurologic: CNII-XII: intact Muscle Strength: equal jenna, nonfocal Sensation: light touch intact at wrist, ankle. Plantar flexors: R downgoing. L downgoing. DTR: patellar 2+ b/l F->N: nl b/l Rapid alternating motion: nl b/l fine finger movements: nl b/l Rhomberg: nl Drift: none CT : IMPRESSION: 1. Stable 10 mm partly calcified meningioma left anterior parafalcine with mild mass effect on the left superior frontal gyrus, unchanged. 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 Assessment: Renny Russo is a 71 year old male with alcohol syndrome, developmental delay, dementia, depression, anxiety, meningioma, mixed urinary incontinence, hypertension, benign prostatic hyperplasia, and sensorineural hearing loss, who presents with his director group sales for dementia evaluation per recommendations from Psychiatry. His caretakers have noticed increases in memory deficits, confusion, and agitation, as well as hallucinatio (more content not included)... [facility] Instructions 03-06-2022 Patient Instructions Note Date & Type Note Facility 03-06-2022 Instructions Garth Moreno MD - 03/06/2022 10:09 AM EST I will need to find out more history, especially about that medications have been tried, what has failed, and why - before I can make useful recommendations. Please go for labs Please give the psychiatry form to the Psychiatrist who known him to complete. Most likely, we can start by increasing Aricept the 10mg (unless there had been a problem on this If essentially incontinent, would stop the anticholinergic medication - Oxybutynin Would consider decrease Lexapro to 10mg - which is max recommended dose at this age and about as effective as 20mg. I will try to touch base with provider at assisted to see what else we can do. documented in this encounter [facility] History of Present illness Narrative 03-06-2022 Garth Moreno MD - 03/06/2022 9:33 AM ESTSstevo Moreno MD - 03/06/2022 8:30 AM EST Note Date & Type Note Facility 03-06-2022 History of Presen t illness Narrative TEACHING PHYSICIAN NOTE OF PERSONAL INVOLVEMENT IN CARE: I have personally seen and examined the patient and performed the medical decision-making components. I have reviewed the medical student documentation and verified the findings in the note as written. (Q86.0) alcohol syndrome (primary encounter diagnosis) (R62.50) Development delay (F79) Unspecified intellectual disabilities (N39.46) Mixed 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) (F32.9) Major depressive disorder, remission status unspecified, unspecified whether recurrent (F41.1) SYED (generalized anxiety disorder) Here with Josefina, pre school manager at the assisted - has only known him few months. Unable to tell me details about his baseline cognition/behaviors or recent changes in these. Has sheet of meds, has psychiatrist. They need form completed - a psych eval. Unclear why his psychiatrist who has known him for years does not complete it Has been sleeping much later, waking later in day Living in past a lot, used to be homeless and talks about that (or someone dying) as if it is in the present Memory and orientation have gotten progressively worse. Starting to get aggressive - mainly since November. May yell at people, threaten to hit them with chain on his wallet. Has hit samuels, but has not hit any people May be having visual hallucinations - bec/ he talks and screams when in bathroom alone. Appt was recommended by the psychiatrist - due to the dementia Has meningioma about 10mm in size - which has changed minimally over the years. Had CTH last month. We dont have results. Had labs couple months ago. We dont have results. Pt is minimally verbal and unable to give history. Denies any pain, denies feeling sad or down. Per medlist, current psychoactive meds include: Aricept 5 (unclear why not on 10), gabap 100bid (unclear of indication), seroquel 25bid (recently decreased from 50bid - unclear why), Buspar 20tid, lexapro 20. Also takes oxybutynin 10 - but often uses his diaper. Head at assisted = Fany Lund [phone]. Pt's psychiatrist = Dr Maria [phone]. Neuropsych = Kenji Arevalo We reviewed medlist from facility, and updated and reconciled all current meds in [facility]. I would need to find out more history, especially about what medications have been tried, what has failed, and why - before I can make useful recommendations. Would like to see recent labs - will call facility to see what has been done and order additional if indicated. Please give the psychiatry form to the Psychiatrist who knows him to complete. Most likely, we can start by increasing Aricept to 10mg (unless there had been a problem on this dose) If essentially incontinent, would stop the anticholinergic medication - Oxybutynin, as risks may outweigh benefits. Would consider decrease Lexapro to 10mg - which is max recommended dose at this age and about as effective as 20mg. I will try to touch base with provider at assisted to see what else we can do. Advised to follow up as needed. I called Dr Maria [phone], was on hold >10min, spoke w/ someone who couldn't find this pt in system, gave them my number to call me back in case I could be of further help. Signature: Garth Moreno MD Date: 02/20/2018 Time: 9:40 AM Renny Russo is a 71 year old White male here for a new consult. Pt accompanied by: guardian Brought in pill bottles?: no Consult Requested By: Psychiatrist? 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 Brief Epic review: Per Neurosugery 12/22/2019: 1. Meningioma (HCC) Stable meningioma on repeat 1 yr imaging, measures 8 mm in diameter Given the small size and stability over the last year, will f/up with repeat CT brain w/wo in 5 yrs. Should there be any concerns prior to that, will arrange repeat imaging at an earlier time. HPI: Per Guardian/director group sales (been with group since August) Since end of November: - Patient is sundowning in PM. Staying up later and sleeping in later. Still getting adequate restful sleep - Patient is living in the past and not the present in terms of recall. Will talk about past events as if it were the present. - Needs more reminding to perform basic activities of daily living like drinking and toileting. Increased frequency of urinary and fecal incontinence - Some confusion. Mentions having had a seizure but it was actually someone else - Increased hatefulness. Yells at people and threatens people. Threatened to hit people with chain on wallet. Punched wall during bathing time. Hasn't been violent with any people though. Always been an issue but has been getting worse. - Quetiapine 50 -> 25 mg last month per Psych. Doing well. - Hallucinations daily. Will be yelling at someone when alone in the restroom or bedroom - Always had some paranoia due to history of homelessness. Stable - Had fasting labs in December and updated MRI brain in January. Per patient: - Feeling good last couple months - Doesn't report mood disturbances - Nothing he is worried about Patient's allergies, medications, and Past, Family and Social history have been reviewed with the patient, and updated as appropriate. Please see relevant sections in [facility] EHR for details Current living environment: assisted Review of Systems: Is dependent or requires assistance in the following BADL: none but needs reminders Ambulatory c? cane / walker: None at assisted but uses wheelchair when traveling long distances Is dependent or requires assistance in the following Instrumental ADL: managing medications, shopping, driving Activity: Tobacco: 0.5-1 pack per day ETOH: no Weight change: no Appetite: yes Difficulty chew/swallow: no Heartburn? no Constipation, diarrhea, or change in bowel habits? Sometimes has accidents Night sweats/fever: no Skin: no Hearing: has hearing aids but doesn't wear them Vision: see ophtho regularly Dyspnea? no Chest Pain? no Orthopnea? no PND? no Edema? no UI - yes Nocturia - no Pain? no Falls? no Memory? See HPI Tremor? no Mood: See HPI Sleep: current pattern: See HPI Indicat of Abuse/Neglect/exploitation?no PE: see Vitals Gen: Thin, NAD, responsive to questions, orientated to self but not place or time Head: NC/AT Eyes: PERRL, EOMI. ENT: TM's +LR b/l, Dentition: Oropharyx: clear Neck: supple. n.t.,, no L.N.s, Thyroid not enlarged Respiratory: CTA jenna, no w,r,r Heart: RRR, S1,S2, no murmurs ABD: soft, nt, +bs Extr: NT, No edema, pulses present Skin: No ulcers, pressure sores, rash Digits/nails: nl Gait: Cannot get up with arms folded; wide based gate with short steppage, minimal arm swing, unable to turn sharp corner Muscle bulk: nl Contractures: none Neurologic: CNII-XII: intact Muscle Strength: equal jenna, nonfocal Sensation: light touch intact at wrist, ankle. Plantar flexors: R downgoing. L downgoing. DTR: patellar 2+ b/l F->N: nl b/l Rapid alternating motion: nl b/l fine finger movements: nl b/l Rhomberg: nl Drift: none CT : IMPRESSION: 1. Stable 10 mm partly calcified meningioma left anterior parafalcine with mild mass effect on the left superior frontal gyrus, unchanged. 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 Assessment: Renny Russo is a 71 year old male with alcohol syndrome, developmental delay, dementia, depression, anxiety, meningioma, mixed urinary incontinence, hypertension, benign prostatic hyperplasia, and sensorineural hearing loss, who presents with his director group sales for dementia evaluation per recommendations from Psychiatry. His caretakers have noticed increases in memory deficits, confusion, and agitation, as well as hallucinations. On exam, patient is only orientate to self. He was unable to perform cognitive testing due to intellectual delay. Other than a wide-based gait with short steppage, no abnormalities were found. Oxybutynin does not appear to eliminate urinary incontinence and may be contributing to cognitive impairment. Current Donepezil dose (5 mg) has room for increase. Escitalopram 20 mg is not recommended for geriatric patients and should be lowered to minimize side effects. Due to lack of records, more specific recommendations cannot be made without consulting Psychiatry and assisted director first. Plan: - Will reach out to Psychiatrist and/or assisted director for medical records before making additional recommendations - Please discuss with PCP the following medication changes - Discontinue Oxybutynin - Increase Donepezil to 10 mg - Decrease Escitalopram to 10 mg Total time spent was 70 minutes, including chart review, time with patient, counseling and care coordination, and assessment/plan formulation and documentation Garth Moreno MD documented in this encounter [facility] Clinical Note 03-17-2021 Note Date & Type Note Facility 03-17-2021 Note HNO ID: [id number] Author: Bella Thurman RN Service: ? Author Type: Registered Nurse Type: Nursing Progress Note Filed: 03/17/2021 1:09 PM Note Text: Discussed IV infiltration and f/u with Dr. Khan AND caregiver, oked f/u. [facility] History of Past illness Narrative 03-17-2021 Note Date & Type Note Facility documented as of this encounter (statuses as of 03/06/2022) [facility] Evaluation + Plan note Note Date & Type Note Facility Evaluation + Plan note No data available for this section [facility] Evaluation note Note Date & Type Note Facility documented in this encounter [facility] Discharge instructions Note Date & Type Note Facility Hospital Discharge instructions No data available for this section [facility] Progress note Note Date & Type Note Facility Progress note No data available for this section [facility] Candice Summary Purpose Family History No Family History Records FoundNo Family History Records FoundNo Family History Records FoundNo Family History Records FoundNo Family History Records Found Advance Directives No Advanced Directives Records FoundNo Advanced Directives Records FoundNo Advanced Directives Records FoundNo Advanced Directives Records FoundNo Advanced Directives Records Found Additional Source Comments (unrecognized sect ion and content) No Status Records FoundNo Status Records FoundNo Status Records FoundNo Status Records FoundNo Status Records Found INFORMATION SOURCE (unrecogn ized section and content) DATE CREATED AUTHOR AUTHOR'S ORGANIZ ATION 12/22/2019 [facility] DATE CREATED AUTHOR AUTHOR'S ORGANIZ ATION 03/18/2021 [facility] DATE CREATED AUTHOR AUTHOR'S ORGANIZ ATION 11/01/[address] [facility] ([place]) DATE CREATED AUTHOR AUTHOR'S ORGANIZ ATION 03/07/2022 [facility] Care Team (unrecognized sect ion and content) Care Team Personnel Name: GREGORIO FARAH MD Member Role: Primary Care Physician Address: Address: [facility] [place] [address]- Care Team Related Persons Name: FANY LUND Address: Home [address] [place] [address] [address] [place] [address] Source Comments (unrecognize d section and content) In the event this informatio n is protected by the Federal Confidentiality of Alcohol and Drug Abuse Patient Records regulations: The Federal rules restrict any use of the information to criminally investigate or prosecute any alcohol or drug abuse patient.[facility] Reason for Visit (unrecogniz ed section and content) Care Teams (unrecognized sec tion and content) FOR RECORDS PERTAINING TO PATIENTS WHO ARE OR HAVE BEEN ENROLLED IN A CHEMICAL DEPENDENCY/SUBSTANCEABUSE PROGRAM, SOME INFORMATION MAY BE OMITTED. This clinical summary was aggregated from multiple sources. Caution should be exercised in using it in the provision of clinical care. This summary normalizes information from multiple sources, and as a consequence, information in this document may materially change the coding, format and clinical context of patient data. In addition, data may be omitted in some cases. CLINICAL DECISIONS SHOULD BE BASED ON THE PRIMARY CLINICAL RECORDS. [facility] [employer] [facility]. provides no warranty or guarantee of the accuracy or completeness of information in this document.
[2023-06-07 13:16] LABS: AST(SGOT) 12 U/L (15-37); Alanine Aminotransfer ALT/SGPT 22 U/L (16-61); Albumin, Serum 3.6 g/dL (3.2-5.0); Alkaline Phosphatase 77 U/L (45-117); Anion Gap 2 (5-15); BUN 18 mg/dL (7-18); BUN/Creat Ratio 19.7 RATIO (10-20); Calcium,Total 8.8 mg/dL (8.5-10.1); Chloride 112 mmol/L (98-107); Creatinine, Serum 0.92 mg/dL (0.70-1.30); EST Glomerular Filtration Rate 86 mL/min (>60); Est Glom Filt Rate - Afr Amer 104 mL/min (>60); Globulin 3.6 g/dL (2.2-4.2); Glucose 106 mg/dL (74-106); Potassium 4.2 mmol/L (3.5-5.1); Protein, Total 7.2 g/dL (6.4-8.2); Sodium Level 141 mmol/L (136-145); Thyroid Stim Hormone (TSH) 1.28 uIU/mL (0.358-3.74)
== END | disposition home or self-care (01) ==
LOC: BFHLAB 11:33
PROVIDERS: PCP Family Medicine; Visit Provider Family Medicine
DX: R63.4 Abnormal weight loss (principal)
CPT/HCPCS: 36415; 80053; 84134; 84443

== ENCOUNTER → 2023-07-26 | Outpatient (CLI) | payer MEDICARE, MEDICAID, SELFPAY ==
[2023-07-26 12:28] LABS: Color, Urine Yellow (Yellow); Glucose, Dipstick 1000 mg/dl (Normal); Ketone-Dipstick 50 mg/dl (Negative); Leukocyte Esterase-Dipstick 25 /ul (Negative); Nitrite-Dipstick Negative (Negative); Occult Blood-Urine 25 /ul (Negative); Protein-Dipstick 15 mg/dl (Negative); Urine Bilirubin Dipstick Negative (Negative); Urine Clarity Clear (Clear); Urine Urobilinogen Normal (Normal)
== END | disposition home or self-care (01) ==
LOC: LABSPEC 10:35
PROVIDERS: PCP Family Medicine; Visit Provider Family Medicine
DX: R35.0 Frequency of micturition (principal); R39.15 Urgency of urination; R32 Unspecified urinary incontinence
CPT/HCPCS: 81002; 87077; 87086; 87088; 87186

== ENCOUNTER 2023-08-15 08:56 | Outpatient (RCR) | payer MEDICARE, MEDICAID, SELFPAY ==
[2023-08-15 09:10] VITALS: BP 121/79; PULSE 64; TEMP 36.7; BMI 20.2
== END 2023-09-13 23:59 | disposition home or self-care (01) ==
LOC: WC 08:56
PROVIDERS: PCP Family Medicine; Referring Provider Family Medicine; Visit Provider Internal Medicine
DX: Z09 Encounter for follow-up examination after completed treatment for conditions other than malignant neoplasm (principal)

== ENCOUNTER → 2024-01-23 | Outpatient (CLI) | payer MEDICARE, MEDICAID, SELFPAY ==
[2024-01-23 14:56] LABS: Absolute Neutrophil Count 6.4 X10^3/uL (2.0-7.7); Basophil# 0.09 X10^3/uL; Basophil% 0.9 % (0-1); Eosinophil# 0.48 X10^3/uL; Eosinophils% 4.9 % (0-5); Hematocrit 41.5 % (40-54); Hemoglobin 13.7 g/dL (13.0-16.5); Lymphocyte % 22.3 % (19-41); Mean Corpuscular Hgb 31.4 pg (27.0-32.0); Mean Corpuscular Volume 95.2 fL (80-94); Monocyte# 0.69 X10^3/uL; NRBC Flagged by Analyzer 0 % (0-5); Neutrophil # 6.37 X10^3/uL (2.7-7.7); Neutrophil % 64.6 % (47-70); Platelet Count 228 K/mm3 (150-450); RBC Distribution Width CV 13.5 % (11.6-14.6); RBC Distribution Width SD 46.7 fl (35.1-43.9); Red Blood Count 4.36 M/mm3 (4.6-6.2); White Blood Count 9.9 K/mm3 (4.4-11.0)
[2024-01-23 15:28] LABS: Vitamin B12 591 pg/mL (211-911)
[2024-01-23 15:57] LABS: AST(SGOT) 14 U/L (15-37); Alanine Aminotransfer ALT/SGPT 28 U/L (16-61); Albumin, Serum 3.4 g/dL (3.2-5.0); Alkaline Phosphatase 71 U/L (45-117); Anion Gap 7 (5-15); BUN 17 mg/dL (7-18); BUN/Creat Ratio 17.9 RATIO (10-20); Calcium,Total 8.8 mg/dL (8.5-10.1); Chloride 109 mmol/L (98-107); Cholesterol 136 mg/dL (200); Creatinine, Serum 0.95 mg/dL (0.70-1.30); EST Glomerular Filtration Rate 82 mL/min (>60); Est Glom Filt Rate - Afr Amer 100 mL/min (>60); Globulin 3.5 g/dL (2.2-4.2); Glucose 76 mg/dL (74-106); High Density Lipoprotein 44 mg/dL; PSA,Total - Annual Screen 0.78 ng/mL (0.00-4.00); Protein, Total 6.9 g/dL (6.4-8.2); Sodium Level 140 mmol/L (136-145); Triglycerides 128 mg/dL; Very Low Density Lipoprotein 26 mg/dL (5-40)
== END | disposition home or self-care (01) ==
LOC: BFHLAB 13:11
PROVIDERS: PCP Family Medicine; Referring Provider Family Medicine; Visit Provider Family Medicine
DX: Z00.00 Encounter for general adult medical examination without abnormal findings (principal); F03.90 Unspecified dementia, unspecified severity, without behavioral disturbance, psychotic disturbance, mood disturbance, and anxiety; Q86.0 Fetal alcohol syndrome (dysmorphic); N40.0 Benign prostatic hyperplasia without lower urinary tract symptoms; E78.5 Hyperlipidemia, unspecified; Z12.5 Encounter for screening for malignant neoplasm of prostate
CPT/HCPCS: 36415; 80053; 80061; 82607; 84153; 84443; 85025; G0103

== ENCOUNTER → 2024-03-31 | Outpatient (CLI) | payer MEDICARE, MEDICAID, SELFPAY | END | disposition home or self-care (01) | LOC: LABSPEC 11:01 | PROVIDERS: PCP Family Medicine; Referring Provider Family Medicine; Visit Provider Family Medicine | DX: L01.00 Impetigo, unspecified (principal) | CPT/HCPCS: 87070; 87077; 87186; 87205 ==

== ENCOUNTER 2024-04-22 14:08 | Emergency (ER) | payer MEDICARE, MEDICAID, SELFPAY ==
[2024-04-22 14:09] VITALS: BP 110/67; PULSE 99; RESP 18; TEMP 36.2; O2SAT 98; BMI 21.8
[2024-04-22 15:06] LABS: Absolute Neutrophil Count 4.6 X10^3/uL (2.0-7.7); Basophil# 0.08 X10^3/uL; Basophil% 1.1 % (0-1); Eosinophil# 0.52 X10^3/uL; Eosinophils% 6.9 % (0-5); Hematocrit 40.6 % (40-54); Hemoglobin 13.9 g/dL (13.0-16.5); Lymphocyte % 23.9 % (19-41); Mean Corp Hgb Conc 34.2 g/dL (32-36); Mean Corpuscular Hgb 32.6 pg (27.0-32.0); Mean Corpuscular Volume 95.3 fL (80-94); Mean Platelet Vol. 9.4 fl (6.2-12.0); Monocyte# 0.51 X10^3/uL; Monocyte% 6.8 % (0-10); NRBC Flagged by Analyzer 0 % (0-5); Platelet Count 244 K/mm3 (150-450); RBC Distribution Width CV 13.2 % (11.6-14.6); RBC Distribution Width SD 45.5 fl (35.1-43.9); Red Blood Count 4.26 M/mm3 (4.6-6.2); White Blood Count 7.5 K/mm3 (4.4-11.0)
[2024-04-22 15:23] LABS: Anion Gap 5 (5-15); BUN 17 mg/dL (7-18); BUN/Creat Ratio 18.8 RATIO (10-20); Calcium,Total 8.4 mg/dL (8.5-10.1); Chloride 109 mmol/L (98-107); EST Glomerular Filtration Rate 87 mL/min (>60); Est Glom Filt Rate - Afr Amer 105 mL/min (>60); Estimated Creatinine Clearance 78.63 ml/min; Glucose 129 mg/dL (74-106); Potassium 4.1 mmol/L (3.5-5.1); Sodium Level 140 mmol/L (136-145)
--- NOTE | 2024-04-22 16:26 | EDS_ITS ---
HPI History of Present Illness Chief Complaint: Wound Informant: patient and other (assisted staff member.) Onset/Context/Timing Onset: Month(s) Context: Gradual Onset Timing: Continuous Current Severity: Mild Maximum Severity: Mild Narrative Narrative: 74-year-old male history of MRSA, anxiety and diabetes. Patient lives in a skilled nursing. He has had sores on his upper and lower extremities for 2 months. He has been on different courses of antibiotics. Currently he is on both doxycycline and Keflex. Has had a history of MRSA. Basically this has not been getting better. The skilled nursing wanted him further evaluated. He was at another ER recently and was discharged home. Patient's not been ill. He has not had a fever. He has also been evaluated by ophthalmology multiple times due to redness below his right eye. He has been on antibiotics and ointments for that that is also not improving Prior similar symptoms: Yes Recent Illness/Hospitalization: No PFSH PFSH Medical History MRSA (methicillin resistant staph aureus) culture positive Tobacco use Fatigue Hyperlipidemia OAB (overactive bladder) SYED (generalized anxiety disorder) Intellectual disability Home Medications ?Medication ?Instructions ?Recorded ?Last Taken ?Type buspirone 10 mg tablet 20 mg PO TID 05/13/13 Unknown History gabapentin 100 mg capsule 100 mg PO BIDCM 05/13/13 Unknown History loratadine 10 mg tablet 10 mg PO DAILY PRN Allergies 05/13/13 Unknown History quetiapine 50 mg tablet 50 mg PO BID 11/22/17 Unknown History solifenacin 10 mg tablet (Vesicare) 10 mg PO QDAY 11/22/17 Unknown History bisacodyl 5 mg tablet,delayed 20 mg (4 x 5 mg) PO ONCE #4 tabs 11/26/17 Unknown Rx release (Dulcolax (bisacodyl)) polyethylene glycol 3350 17 See Rx Instructions PO .COMPLEX 11/26/17 Unknown Rx gram/dose oral powder (Miralax) #238 grams Allergy/AdvReac Type Severity Reaction Status Date / Time No Known Allergies Allergy Verified 04/22/24 14:09 Social History Smoking Status: Current every day smoker tobacco type: cigarettes alcohol intake: never substance use type: does not use ROS ROS ED ROS Narrative No recent illness. No vomiting or diarrhea no fever. Constitutional Constitutional ED: Denies chills or fever(s) Eyes Eyes: Denies blurry vision ENT ENT ED: Denies ear pain Cardiovascular Cardiovascular: Denies chest pain Respiratory/Chest Respiratory/Chest: Denies cough or dyspnea Gastrointestinal Gastrointestinal: Denies abdominal pain, diarrhea, nausea or vomiting Genitourinary Genitourinary ED: Denies dysuria or hematuria Musculoskeletal Musculoskeletal: Denies arthralgias Integumentary Reports rash; Denies abscess or Abrasions Neurologic Neurologic: Denies headache(s) Psychiatric Psychiatric: Denies anxiety Endocrine Endocrinology: Denies cold intolerance Hematologic/Lymphatic Hematologic/Lymphatic: Reports none Allergic/Immunologic Allergic/Immunologic ED: Denies mouth swelling, tongue swelling or urticaria EXAM Physical Exam Narrative Exam Narrative: Well-appearing 74-year-old male. Vital signs stable afebrile. He is in no acute distress. H EENT exam pupils round reactive light. Extra motions are intact. Poor dentition. Moist mucous membranes. Below his right eye he has redness on his face it has been chronic. It looks like this could be irritated skin versus a cellulitis. His XR motions are intact. There is no proptosis. There is no orbital cellulitis. He has no pain with extraocular motions of his eyes. Neck is nontender no lymphadenopathy. Lungs clear to auscultation bilaterally. Heart regular rhythm rate about 90 no murmur. Chest wall ribs nontender. Moving all 4 extremities. Nontender no edema. Back nontender. Neurologically is awake and alert. No focal motor deficits. Skin he has diffuse areas of sores some are healing and drying others are more acute. There is no abscess or fluctuance. These appear to be chronic. They are on both upper and lower extremities. Back and chest. Const Vital Signs: 04/22/24 14:09 Temperature 97.1 F L Temperature Source Temporal Pulse Rate 99 Respiratory Rate 18 Blood Pressure 110/67 Blood Pressure Mean 81 Pulse Ox 98 Oxygen Delivery Method Room Air Positive well nourished and well developed; Negative for obese, cachectic, co ntractures or unkempt General Appearance ED: well developed and NAD; Negative for unkempt, cachectic, contractures, cyanotic, diaphoretic or pallor Nutritional Appearance: Negative for cachectic or obese HEENT Reports moist mucous membranes Negative for trauma or tenderness Eyes PERRL and EOMs intact bilaterally Neck no lymphadenopathy, supple and no JVD General: Negative for tenderness Lymph Lymphatic: Negative for other Chest Wall inspection of chest normal and palpation of chest normal Resp normal respiratory effort and clear to auscultation bilaterally Cardio regular rate, regular rhythm, S1 normal heart sound, S2 normal heart sound and no murmurs GI normal to inspection, nondistended, normoactive bowel sounds, non-tender, non- distended and no masses Palpation: soft; Negative for tender, guarding or rebound tenderness present Back/Spine no CVA tenderness General Back: Negative for CVA tenderness Cervical Spine: Negative for cervical spine tenderness Thoracic Spine / Upper Back: Negative for thoracic spinal tenderness or paraspinal muscle tenderness Lumbar Spine / Lower Back: Negative for lumbar spinal tenderness Extremity normal to inspection Extremity Narrative: Except for chronic skin sores both upper and lower extremities. Could be from picking. Could be chronically infected. There is no abscess or anything to drain. There is no lymphangitic streaking. There is no adenopathy. He has had these for 2 months according to staff that is with him. General Extremety ED: Negative for edema or tenderness General Extremity: Negative for edema Neuro CN's II-XII intact bilaterally Sensorium / Orientation: alert; Negative for orientation impaired, lethargic or stuporous Motor Exam: strength 5/5 throughout Psych mental status grossly normal Appearance: Negative for unkempt Attitude: No agitated Mood & Affect: Negative for depressed, anxious or tearful Skin No no rashes or lesions noted, No no wounds and skin turgor normal General Skin Exam: Negative for jaundice or pallor Rashes: rashes noted Wounds: wounds noted MDM MDM MDM Narrative Medical decision making narrative: 74-year-old male history of MRSA with chronic rash for 2 months on his upper or lower extremities. Also chronic redness to his face. He has been seen for this numerous times by other physicians. Most recent ER visit at another facility. This does appear to be chronic. Screening labs are being obtained. I will talk to infectious disease. Repeat exam patient doing well at 5 PM. Exam unchanged. We try to get a hold of infectious disease office was unable. I have we are trying to get a hold of the infectious disease doctor directly. This can all be done as follow-up. There is nothing the patient needs to be admitted to the hospital for. Clinically looks good. His vital signs are normal and stable. He is afebrile. His labs are unremarkable. He can continue his current antibiotics which are doxycycline and Keflex. And get an appointment to see infectious disease. Lab Data Attestation: I reviewed the patient's lab results. Lab results narrative: CBC shows white count 7. H&H 13 and 40. Platelets 244. Electrolytes show a gap of 5. Normal BUN of 17 creatinine 0.9. Glucose 129. Labs: Laboratory Results - last 24 hr 04/22/24 14:50 WBC 7.5 RBC 4.26 L Hgb 13.9 Hct 40.6 MCV 95.3 H MCH 32.6 H MCHC 34.2 RDW Std Deviation 45.5 H RDW Coeff of Joy 13.2 Plt Count 244 MPV 9.4 Immature Gran % (Auto) 0.300 Neut % (Auto) 61.0 Lymph % (Auto) 23.9 [place] % (Auto) 6.8 Eos % (Auto) 6.9 H Baso % (Auto) 1.1 H Absolute Neuts (auto) 4.6 Absolute Lymphs (auto) 1.80 Nucleated RBC % 0 Sodium 140 Potassium 4.1 Chloride 109 H Carbon Dioxide 27.0 Anion Gap 5 BUN 17 Creatinine 0.90 Estim Creat Clear Calc 78.63 Est GFR (MDRD) Af Amer 105 Est GFR (MDRD) Non-Af 87 BUN/Creatinine Ratio 18.8 Glucose 129 H Calcium 8.4 L Discharge Plan Triage Chief Complaint: Wound ED Provider: Jorje Alberto Dx/Rx/DC Orders Clinical Impression: Rash, Cellulitis of face, MRSA infection Instructions: MRSA, ED Cellulitis Prescriptions: No Action quetiapine 50 mg tablet 50 mg PO BID solifenacin [Vesicare] 10 mg tablet 10 mg PO QDAY buspirone 10 MG tablet 20 mg PO TID gabapentin 100 MG capsule 100 mg PO BIDCM loratadine 10 MG tablet 10 mg PO DAILY PRN (Reason: Allergies) Patient Comments: ALLERGRIES bisacodyl [Dulcolax (bisacodyl)] 5 mg tablet,delayed release (DR/EC) 20 mg PO ONCE Qty: 4 0RF Rx Instructions: Take 4 tablets by mouth at 2:00 pm polyethylene glycol 3350 [Miralax] 17 gram/dose powder See Rx Instructions PO .COMPLEX Qty: 238 0RF Dose Instruction: PO Rx Instructions: Mix with gatorade and start colonoscopy mixture at 4 pm Primary Care Provider: Kim Hutchinson Referrals: Kim Hutchinson MD [Primary Care Provider] - As soon as possible Evelio Merritt MD [Med Staff - Active Staff] - As soon as possible (Call their office tomorrow to see when they get an appointment.) Activity Restrictions/Additional Instructions: Continue your current antibiotics. Call and follow-up with your primary care physician. Call and follow-up with the infectious disease DrTerry Merritt as soon as possible. I tried to reach him today I was unable. Continue your current antibiotics and doxycycline and Keflex. Print Language: Tamazight Disposition Disposition: Home, Self Care
[2024-04-22 17:46] VITALS: BP 134/67; PULSE 79; RESP 18; TEMP 36.7; O2SAT 97
== END 2024-04-22 17:48 | disposition home or self-care (01) ==
PROVIDERS: Emergency Provider Emergency Medicine; PCP Family Medicine; Visit Provider Emergency Medicine
DX: R21 Rash and other nonspecific skin eruption (principal); E11.9 Type 2 diabetes mellitus without complications; L03.211 Cellulitis of face; E78.5 Hyperlipidemia, unspecified; F41.9 Anxiety disorder, unspecified; B95.62 Methicillin resistant Staphylococcus aureus infection as the cause of diseases classified elsewhere; Z79.899 Other long term (current) drug therapy; F17.210 Nicotine dependence, cigarettes, uncomplicated
CPT/HCPCS: 80048; 85025; 99282; A4216

== ENCOUNTER → 2024-08-27 | Outpatient (CLI) | payer MEDICARE, MEDICAID, SELFPAY | END | disposition home or self-care (01) | LOC: LAB 10:56 | PROVIDERS: PCP Family Medicine; Referring Provider Nurse Practitioner; Visit Provider Nurse Practitioner | DX: Z12.5 Encounter for screening for malignant neoplasm of prostate (principal) ==

== ENCOUNTER → 2024-09-29 | Outpatient (CLI) | payer MEDICARE, MEDICAID, SELFPAY ==
[2024-09-29 12:57] LABS: Absolute Lymphocyte Count 1.74 X10^3/uL (0.83-4.51); Absolute Neutrophil Count 8.1 X10^3/uL (2.0-7.7); Basophil# 0.07 X10^3/uL; Basophil% 0.6 % (0-1); Eosinophil# 0.04 X10^3/uL; Eosinophils% 0.4 % (0-5); Hematocrit 40.8 % (40-54); Hemoglobin 13.8 g/dL (13.0-16.5); Lymphocyte # 1.74 X10^3/ul (0.83-4.51); Lymphocyte % 15.9 % (19-41); Mean Corp Hgb Conc 33.8 g/dL (32-36); Mean Corpuscular Hgb 31.9 pg (27.0-32.0); Mean Corpuscular Volume 94.2 fL (80-94); Mean Platelet Vol. 9.8 fl (6.2-12.0); Monocyte# 0.88 X10^3/uL; Monocyte% 8.1 % (0-10); NRBC Flagged by Analyzer 0 % (0-5); Neutrophil # 8.12 X10^3/uL (2.7-7.7); Neutrophil % 74.5 % (47-70); Platelet Count 253 K/mm3 (150-450); RBC Distribution Width CV 13.3 % (11.6-14.6); RBC Distribution Width SD 45.9 fl (35.1-43.9); Red Blood Count 4.33 M/mm3 (4.6-6.2); White Blood Count 10.9 K/mm3 (4.4-11.0)
[2024-09-29 14:44] LABS: ALB/GLOB Ratio 1.3 RATIO (0.9-2.4); AST(SGOT) 16 U/L (<=37); Alanine Aminotransfer ALT/SGPT 17 U/L (<=46); Albumin, Serum 3.8 g/dL (3.4-4.8); Alkaline Phosphatase 73 U/L (40-129); Anion Gap 12 (5-15); BUN 15 mg/dL (4-19); BUN/Creat Ratio 17.4 RATIO (10-20); Calcium,Total 8.8 mg/dL (7.6-11.0); Carbon Dioxide 22.3 mmol/L (21.0-32.0); Chloride 107 mmol/L (98-108); Creatinine, Serum 0.88 mg/dL (0.70-1.20); EST Glomerular Filtration Rate 90 (>60); Globulin 2.9 g/dL (2.2-4.2); Glucose 135 mg/dL (70-99); Potassium 3.8 mmol/L (3.3-5.1); Protein, Total 6.7 g/dL (5.9-8.4); Sodium Level 141 mmol/L (133-145); Total Bilirubin 0.49 mg/dL (0.00-1.30)
--- OUTSIDE RECORDS SUMMARY | 2024-09-29 22:47 | XMS RPT_ITS | CCD ---
Author Organization [facility] Care Team Providers Care Technical Applications Scientist Name Role Phone SOFI YOON, DR PERKINS Primary Care Physician Kim Hutchinson Primary Care Provider [phone] Kim Hutchinson MD Primary Care Provider KIM HUTCHINSON Primary Care Physician SOFI YOON, DR PERKINS Primary Care Unavailable [place] [employer], WINSOME Admitting Unavail able JOHAN YOON, NANNETTE Consulting Unavailable NANNETTE PRDAO MD Attending Unavailable MARILU YOON, DR GRACIA Attending Raegan Davalos MD, DR PERKINS Primary Care Unavailable SEBAS HARDY Attending Unavailable KIM HUTCHINSON Primary Care Unavailable KASSANDRA MCGOVERN MD Attending Unavaila KIM Jay Primary Care Unavailable GRACIELA LEWIS-AMY RUBIO Attending Arian CAMARA MD, DR PERKINS Primary Care Unavailable KIM HUTCHINSON Primary Care Unavailable KIM HUTCHINSON Primary Care Unavailable MARILU YOON, DR GRACIA Attending Unavailab KIM Mazariegos Primary Care Unavailable BRADLEY ANGEL DO Attending Unavailable KIM HUTCHINSON Primary Care Unavailable AGUSTIN ACEVES DO Attending Unavailable KIM HUTCHINSON Primary Care Unavailable MD BECKY SCHAFFER Attending Unavailable KIM HUTCHINSON Primary Care Unavailable Dr. Kim Hutchinson MD Primary Care Provider Dr. Kim Hutchinson MD Referring Provider [phone] Garth Mckeon Attending Provider Melissa Campbell Attending Provider Nye, Melissa Referring Provider Garth Mckeon Attending Unavailable Miedel, Kim Referring Unavailable Nyed, Kim Primary Care Unavailable Garth Mckeon Attending Unavailable Miedel, Kim Referring Unavailable Miedel, Kim Primary Care Unavailable [facility], Kim Attending Unavailable Miedel, Kim Referring Unavailable Miedel, [place] Primary Care Unavailable Nye, Melissa Referring Unavailable Miedel, Kim Primary Care Unavailable Nye, Melissa Attending Unavailable Jorje Alberto Attending Unavailable Nyed, [place] Primary Care Unavailable Nye, Melissa Attending Unavailable Nye, Melissa Referring Unavailable Mied, [place] Primary Care Unavailable Kami Carlos Attending Unavailable Miedel, Kim Referring Unavailable Nyed, [place] Primary Care Unavailable [facility], Kim Attending Unavailable Nyedel, Kim Referring Unavailable Miedel, [place] Primary Care Unavailable Allergies Allergy Classification Reported Allergen(s) Allergy Type Date of Onset Reaction(s) Facility (3 sources) Amoxicillin; Translations: [amoxicillin] Drug Allergy [facility] (3 sources) Sulfamethoxazole / Trimethoprim; Translations: [sulfamethoxazole-tr imethoprim] Drug Allergy [facility] (1 source) Azithromycin Drug Allergy 5 [facility] Comment on above: severe rash (1 source) Sulfamethoxazole Drug Allergy 5 [facility] (1 source) Trimethoprim Drug Allergy 5 [facility] (1 source) Azithromycin Drug Allergy 5 [facility] (1 source) Sulfamethoxazole Drug Allergy 5 [facility] (1 source) Trimethoprim Drug Allergy [address] [place] [address] Repository Medications Current Medications Medication Drug Class(es) Dates Sig (Normalized) Sig (Original) amoxicillin 500 mg oral capsule (2 sources) Penicillin-class Antibacterial Start: 09-24-2023 End: 10-04-2023 amoxicillin 500 mg oral capsule Dose : 500 mg = 1 cap(s), Oral, TID, X 10 day(s), # 30 cap(s), 0 Refill(s), 10/04/23 11:33:00 AM EDT Start Date: 09/24/23 Stop Date: 10/04/23 Status: Ordered Start: 01-10-2016 End: 03-06-2022 take 10 mL by mouth twice daily amoxicillin (AMOXIL) 400 mg/5 mL suspension Indications: Acute serous otitis media of left ear, recurrence not specified Take 10 ml by mouth twice daily x 10 days. 200 mL 0 01/10/2016 03/06/2022 Discontinued Comment on above: Take 10 ml by mouth twice daily x 10 days. apixaban 5 mg oral tablet (10 sources) Factor Xa Inhibitor Start: 01-28-2024 take 1 tablet by mouth twice daily ELIQUIS 5 mg tab(s) Take 1 tablet by mouth two times a day. 01/28/2024 Active Start: 07-29-2023 End: 08-28-2023 apixaban 5 mg oral tablet Do se : 5 mg = 1 tab(s), Oral, BID, # 60 tab(s), 0 Refill(s), Pharmacy: [facility]/pharmacy #[id number], 182.9, cm, 07/28/23 1:57:00 EDT, Height, 70.5, kg, 07/28/23 1:57:00 EDT, Dosing Weight Start Date: 07/29/23 Stop Date: 08/28/23 Status: Ordered Quantity: 60.0 Unit: tab(s) Repeat number: 1 bacitracin 0.5 unt/mg / polymyxin b 10 unt/mg ophthalmic ointment (1 source) Polymyxin-class Antibacterial Start: 2024 End: 04-25-2024 apply 0.25 dose into the eye(s) four times daily bacitracin-polymyxin B ophthalmic ointment Dose = 0.25 inch(es), Ophthalmic, QID, X 5 day(s), # 3.5 gram(s), 0 Refill(s) Start Date: 04/20/24 Stop Date: 04/25/24 Status: Ordered Quantity: 3.5 Unit: g Repeat number: 1 bisacodyl 5 mg delayed release oral tablet (9 sources) Stimulant Laxative Start: 11-26-2017 take 4 tablets by mouth once in the evening Bisacodyl (Dulcolax (Bisacodyl)) 5 mg tablet,delayed release (DR/EC) Active 20 mg PO ONCE November 26, 2017 12:00am Take 4 tablets by mouth at 2:00 pm busPIRone hydrochloride 10 mg oral tablet (20 sources) Start: 06-16-2019 busPIRone 10 mg oral tablet Dose : 20 mg = 2 tab(s), Oral, TID, 0 Refill(s) Start Date: 06/16/19 Status: Ordered Repeat number: 1 Start: 05-13-2013 take 2 tablets by mo ut three times daily Buspirone 10 MG tablet Active 20 mg PO THREE TIMES A DAY May 13, 2013 1:00am Start: 05-13-2013 take 20 mg by mouth three times daily Buspirone Active 20 MG PO THREE TIMES A DAY May 13, 2013 1:00am Comment on above: Take 20 mg by mouth three times daily. cephalexin 500 mg oral capsule (2 sources) Cephalosporin Antibacterial Start: 04-06-2024 End: 04-11-2024 cephalexin 500 mg oral capsule Dose : 500 mg = 1 cap(s), Oral, QID, X 5 day(s), # 20 cap(s), 0 Refill(s), 04/11/24 12:45:00 PM EST, 80.95 Start Date: 04/06/24 Stop Date: 04/11/24 Status: Ordered Quantity: 20.0 Unit: cap(s) Repeat number: 1 Start: 08-12-2023 End: 08-17-2023 take 1 capsule by mouth three times daily cephALEXin (KEFLEX) 500 mg capsule Take 1 capsule by mouth three times a day for 5 days. 15 capsule 0 08/12/2023 08/17/2023 Active clindamycin 300 mg oral capsule (2 sources) Lincosamide Antibacterial Start: 07-13-2024 take 1 capsule by mouth three times daily Clindamycin Hcl 300 mg capsule Active 300 mg PO THREE TIMES A DAY July 13, 2024 12:00am Start: 06-07-2024 End: 06-17-2024 clindamycin 300 mg oral caps ule Dose : 300 mg = 1 cap(s), PO, q6hr, X 10 day(s), # 40 cap(s), 0 Refill(s), 06/17/24 3:54:00 PM EST, 80.95 Start Date: 06/07/24 Stop Date: 06/17/24 Status: Ordered Quantity: 40.0 Unit: cap(s) Repeat number: 1 clotrimazole 10 mg/ml topical cream (3 sources) Azole Antifungal Start: 08-09-2023 End: 08-23-2023 clotrimazole (LOTRIMIN) 1 % cream Indications: Umbilical discharge Apply to affected area two times a day for 14 days. 30 g 0 08/09/2023 08/23/2023 Active dexamethasone 0.001 mg/mg / tobramycin 0.003 mg/mg ophthalmic ointment (4 sources) Aminoglycoside Antibacterial, Corticosteroid Start: 03-19-2024 Tobradex ophthalmic ointment 0 Refill(s) Start Date: 03/19/24 Status: Ordered Repeat number: 1 DEXCOM G7 SENSOR luis angel (1 source) Start: 12-15-2023 DEXCOM G7 SENS OR luis angel USE DAILY, CHANGE SENSOR EVERY 10 DAYS 12/15/2023 Active DME MISCellaneous (20 sources) Start: 02-03-2024 DME MISCellane ous See Instructions, Check blood glucose level twice daily at 8AM and 8PM., # 1 EA, 0 Refill(s), 71.4 Start Date: 02/03/24 Status: Ordered Quantity: 1.0 Unit: EA Repeat number: 1 Start: 07-29-2023 DME MISCellane ous See Instructions, alcohol swabs., # 1 EA, 0 Refill(s), Pharmacy: [facility]/pharmacy #[id number], 182.9, cm, 07/28/23 1:57:00 EDT, Height, 70.5, kg, 07/28/23 1:57:00 EDT, Dosing Weight Start Date: 07/29/23 Status: Ordered Quantity: 1.0 Unit: EA Repeat number: 1 Start: 07-29-2023 DME MISCellane ous See Instructions, alcohol swabs., # 1 EA, 0 Refill(s), Pharmacy: [facility]/pharmacy #[id number], 182.9, cm, 07/28/23 1:57:00 EDT, Height, 70.5, kg, 07/28/23 1:57:00 EDT, Dosing Weight Start Date: 07/29/23 Status: Ordered Start: 07-29-2023 DME MISCellane ous See Instructions, Pen needles-120., # 1 EA, 0 Refill(s), Pharmacy: [facility]/pharmacy #[id number], Type 2 diabetes mellitus, 182.9, cm, 07/28/23 1:57:00 EDT, Height, 70.5, kg, 07/28/23 1:57:00 EDT, Dosing Weight Start Date: 07/29/23 Status: Ordered Quantity: 1.0 Unit: EA Repeat number: 1 Indications: Type 2 diabetes mellitus without complications; Start: 07-29-2023 DME MISCellane ous See Instructions, Pen needles-120., # 1 EA, 0 Refill(s), Pharmacy: [facility]/pharmacy #[id number], Type 2 diabetes mellitus, 182.9, cm, 07/28/23 1:57:00 EDT, Height, 70.5, kg, 07/28/23 1:57:00 EDT, Dosing Weight Start Date: 07/29/23 Status: Ordered Quantity: 1.0 Unit: EA Repeat number: 1 Indication: Type 2 diabetes mellitus without complications Start: 07-29-2023 DME MISCellane ous See Instructions, Pen needles-120., # 1 EA, 0 Refill(s), Pharmacy: [facility]/pharmacy #[id number], Type 2 diabetes mellitus, 182.9, cm, 07/28/23 1:57:00 EDT, Height, 70.5, kg, 07/28/23 1:57:00 EDT, Dosing Weight Start Date: 07/29/23 Status: Ordered Start: 07-29-2023 DME MISCellane ous See Instructions, Glucometer-Check glucose TIDAC., # 1 EA, 0 Refill(s), Pharmacy: [facility]/pharmacy #[id number], Type 2 diabetes mellitus, 182.9, cm, 07/28/23 1:57:00 EDT, Height, 70.5, kg, 07/28/23 1:57:00 EDT, Dosing Weight Start Date: 07/29/23 Status: Ordered Quantity: 1.0 Unit: EA Repeat number: 1 Indications: Type 2 diabetes mellitus without complications; Start: 07-29-2023 DME MISCellane ous See Instructions, GLucometer., # 1 EA, 0 Refill(s), Pharmacy: [facility]/pharmacy #[id number], Type 2 diabetes mellitus, 182.9, cm, 07/28/23 1:57:00 EDT, Height, 70.5, kg, 07/28/23 1:57:00 EDT, Dosing Weight Start Date: 07/29/23 Status: Ordered Quantity: 1.0 Unit: EA Repeat number: 1 Indications: Type 2 diabetes mellitus without complications; Start: 07-29-2023 DME MISCellane ous See Instructions, Glucometer-Check glucose TIDAC., # 1 EA, 0 Refill(s), Pharmacy: [facility]/pharmacy #[id number], Type 2 diabetes mellitus, 182.9, cm, 07/28/23 1:57:00 EDT, Height, 70.5, kg, 07/28/23 1:57:00 EDT, Dosing Weight Start Date: 07/29/23 Status: Ordered Quantity: 1.0 Unit: EA Repeat number: 1 Indication: Type 2 diabetes mellitus without complications Start: 07-29-2023 DME MISCellane ous See Instructions, GLucometer., # 1 EA, 0 Refill(s), Pharmacy: [facility]/pharmacy #[id number], Type 2 diabetes mellitus, 182.9, cm, 07/28/23 1:57:00 EDT, Height, 70.5, kg, 07/28/23 1:57:00 EDT, Dosing Weight Start Date: 07/29/23 Status: Ordered Quantity: 1.0 Unit: EA Repeat number: 1 Indication: Type 2 diabetes mellitus without complications Start: 07-29-2023 DME MISCellane ous See Instructions, Glucometer-Check glucose TIDAC., # 1 EA, 0 Refill(s), Pharmacy: [facility]/pharmacy #[id number], Type 2 diabetes mellitus, 182.9, cm, 07/28/23 1:57:00 EDT, Height, 70.5, kg, 07/28/23 1:57:00 EDT, Dosing Weight Start Date: 07/29/23 Status: Ordered Start: 07-29-2023 DME MISCellane ous See Instructions, GLucometer., # 1 EA, 0 Refill(s), Pharmacy: [facility]/pharmacy #[id number], Type 2 diabetes mellitus, 182.9, cm, 07/28/23 1:57:00 EDT, Height, 70.5, kg, 07/28/23 1:57:00 EDT, Dosing Weight Start Date: 07/29/23 Status: Ordered Start: 07-29-2023 DME MISCellane ous See Instructions, Pen needles., # 1 EA, 0 Refill(s), [id number] 182.9, cm, 07/28/23 1:57:00 EDT, Height, 70.5, kg, 07/28/23 1:57:00 EDT, Dosing Weight Start Date: 07/29/23 Status: Ordered Quantity: 1.0 Unit: EA Repeat number: 1 Start: 07-29-2023 DME MISCellane ous See Instructions, Pen needles., # 1 EA, 0 Refill(s), [id number], 182.9, cm, 07/28/23 1:57:00 EDT, Height, 70.5, kg, 07/28/23 1:57:00 EDT, Dosing Weight Start Date: 07/29/23 Status: Ordered donepezil hydrochloride 5 mg oral tablet (13 sources) Start: 07-29-2023 Aricept 5 mg o ral tablet Dose : 5 mg = 1 tab(s), Oral, qHS Start Date: 07/29/23 Status: Ordered Repeat number: 1 Comment on above: Take 5 mg by mouth d aily at bedtime. doxycycline monohydrate 100 mg oral capsule (11 sources) Tetracycline- class Drug Start: 05-26-2024 take 1 capsule by mouth twice daily Doxycycline Monohydrate 100 mg capsule Active 100 mg PO TWICE A DAY May 26, 2024 1:00am Start: 04-06-2024 End: 04-11-2024 doxycycline hyclate 100 mg o ral capsule Dose : 100 mg = 1 cap(s), Oral, BID, X 5 day(s), # 10 cap(s), 0 Refill(s), 04/11/24 12:45:00 PM EST, 80.95 Start Date: 04/06/24 Stop Date: 04/11/24 Status: Ordered Quantity: 10.0 Unit: cap(s) Repeat number: 1 Start: 12-27-2014 End: 11-22-2017 take 1 capsule by mouth twice daily Doxycycline Hyclate 100 MG capsule Discontinued 100 mg PO TWICE A DAY December 27, 2014 12:00am November 22, 2017 10:37am escitalopram 20 mg oral tablet (20 sources) Serotonin Reuptake Inhibitor Start: 06-16-2019 escitalopram 20 mg oral tablet Dose : 20 mg = 1 tab(s), Oral, qDay, # 30 tab(s), 0 Refill(s) Start Date: 06/16/19 Status: Ordered Quantity: 30.0 Unit: tab(s) Repeat number: 1 Start: 05-13-2013 End: 11-22-2017 take 1 tablet by mouth once daily Escitalopram Oxalate 20 MG tablet Discontinued 20 mg PO DAILY May 13, 2013 1:00am November 22, 2017 10:37am Comment on above: Take 20 mg by mouth once daily. finasteride 5 mg oral tablet (7 sources) 5-alpha Reductase Inhibitor Start: 09-12-19 24 finasteride 5 mg oral tablet Dose : 5 mg = 1 tab(s), Oral, qDay, # 90 tab(s), 0 Refill(s) Start Date: 09/12/23 Status: Ordered Quantity: 90.0 Unit: tab(s) Repeat number: 1 gabapentin 100 mg oral capsule (20 sources) Anti-epileptic Agent Start: 05-13-19 14 take 1 capsule by mouth twice daily at mealtime Gabapentin 100 MG capsule Active 100 mg PO TWICE DAILY WITH MEALS May 13, 2013 1:00am Comment on above: Take 100 mg by mouth twice daily. 3 ml insulin glargine 100 unt/ml pen injector (14 sources) Insulin Analog Start: 06-01-19 25 inject 1 dose by subcutaneous injection once daily in the morning Basaglar 100 unit(s)/mL 3 mL KwikPen Dose : 8 unit(s) =, Subcutaneous, qAM, # 15 mL, 3 Refill(s), Pharmacy: [facility] ([facility]), 185.1, cm, 03/19/24 13:19:00 EST, Height, kg, 03/19/24 13:19:00 EST, Dosing Weight Start Date: 06/01/24 Status: Ordered Quantity: 15.0 Unit: mL Repeat number: 4 Start: 11-12-2023 inject 1 dose by sub cutaneous injection once daily at bedtime Lantus Solostar Pen 100 units/mL 3 mL Pen Dose : 10 unit(s) =, Subcutaneous, qHS, # 3 mL, 0 Refill(s), other reason (Rx), Type 2 diabetes mellitus Start Date: 11/12/23 Status: Ordered Start: 10-23-2023 inject 1 dose by sub cutaneous injection once daily in the morning Basaglar 100 unit(s)/mL 3 mL KwikPen Dose : 8 unit(s) =, Subcutaneous, qAM, # 15 mL, 0 Refill(s), Pharmacy: [facility] ([facility]), 185.1, cm, 12/17/23 11:46:00 EDT, Height, kg, 12/17/23 11:46:00 EDT, Dosing Weight Start Date: 12/17/23 Status: Ordered Quantity: 15.0 Unit: mL Repeat number: 1 Start: 07-29-2023 End: 08-28-2023 inject 1 dose by subcutaneous injection twice daily Lantus Solostar Pen 100 units/mL 3 mL Pen Dose : 20 unit(s) =, Subcutaneous, BID, # 15 mL, 0 Refill(s), Pharmacy: [facility]/pharmacy #[id number], Type 2 diabetes mellitus, 182.9, cm, 07/28/23 1:57:00 EDT, Height, kg, 07/28/23 1:57:00 EDT, Dosing Weight Start Date: 07/29/23 Stop Date: 08/28/23 Status: Ordered Start: 07-29-2023 inject 1 dose by sub cutaneous injection once daily at bedtime Lantus Solostar Pen 100 units/mL 3 mL Pen Dose : 20 unit(s) =, Subcutaneous, qHS, # 3 mL, 0 Refill(s), Pharmacy: [facility]/pharmacy #[id number], Type 2 diabetes mellitus, 182.9, cm, 07/28/23 1:57:00 EDT, Height, kg, 07/28/23 1:57:00 EDT, Dosing Weight Start Date: 07/29/23 Status: Ordered ketoconazole 20 mg/ml topical cream (4 sources) Azole Antifungal Start: 07-09-2012 ketoconazole 2 % cream Apply 1 application to affected area twice daily. 15 g 0 07/09/2012 Active Comment on above: Apply 1 application to affected area twice daily. loratadine 10 mg oral capsule (20 sources) Start: 09-12-2023 loratadine 10 mg oral capsule Dose : 10 mg = 1 cap(s), Oral, qDay, # 24 cap(s), 0 Refill(s) Start Date: 09/12/23 Status: Ordered Quantity: 24.0 Unit: cap(s) Repeat number: 1 Start: 07-29-2023 take 1 dose by mouth once abbi y loratadine Dose : 5 mg =, Oral, qDay, 0 Refill(s) Start Date: 07/29/23 Status: Ordered Start: 06-18-2007 take 1 tablet by terri th once daily as needed Loratadine 10 MG tablet Active 10 mg PO DAILY as needed for Allergies May 13, 2013 1:00am Comment on above: Take one(1) tablet d aily for allergy symptoms including sneezing, itchy, watery eyes, and congestion metFORMIN hydrochloride 500 mg oral tablet (10 sources) Biguanide Start: 05-12-2024 MetFORMIN (Eqv-Glucophage XR) 500 mg oral tablet, EXTENDED RELEASE Dose : 500 mg = 1 tab(s), Oral, qAM, 1 tab every morning. To be taken with food., # 30 tab(s), 3 Refill(s), Pharmacy: [facility] ([facility]), 185.1, cm, 03/19/24 13:19:00 EST, Height, kg, 03/19/24 13:19:00 EST, Dosing Weight Start Date: 05/12/24 Status: Ordered Quantity: 30.0 Unit: tab(s) Repeat number: 4 Start: 04-16-2024 MetFORMIN (Eqv -Glucophage XR) 500 mg oral tablet, EXTENDED RELEASE Dose : 500 mg = 1 tab(s), Oral, with supper, # 30 tab(s), 3 Refill(s), Pharmacy: [facility] ([facility]), 185.1, cm, 03/19/24 13:19:00 EST, Height, kg, 03/19/24 13:19:00 EST, Dosing Weight Start Date: 04/16/24 Status: Ordered Quantity: 30.0 Unit: tab(s) Repeat number: 4 Start: 01-28-2024 take 1 tablet by terri th once daily at breakfast metFORMIN ER (GLUCOPHAGE XR) 500 mg 24 hr tablet Take 500 mg by mouth daily with breakfast. 01/28/2024 Active Start: 07-29-2023 MetFORMIN (Eqv -Glucophage XR) 500 mg oral tablet, EXTENDED RELEASE Dose : 500 mg = 1 tab(s), Oral, with supper, # 30 tab(s), 0 Refill(s), Pharmacy: [facility]/pharmacy #[id number], 182.9, cm, 07/28/23 1:57:00 EDT, Height, kg, 07/28/23 1:57:00 EDT, Dosing Weight Start Date: 07/29/23 Status: Ordered Quantity: 30.0 Unit: tab(s) Repeat number: 1 24 hr metoprolol succinate 25 mg extended release oral tablet (12 sources) beta-Adrenergic Adilia Start: 07-29-2023 metopr olol succinate 25 mg oral TABLET extended release Dose : 6.25 mg = 0.25 tab(s), Oral, BIDM, # 15 tab(s), 0 Refill(s), Pharmacy: [facility]/pharmacy #[id number], 182.9, cm, 07/28/23 1:57:00 EDT, Height, kg, 07/28/23 1:57:00 EDT, Dosing Weight Start Date: 07/29/23 Status: Ordered Quantity: 15.0 Unit: tab(s) Repeat number: 1 Start: 07-28-2023 End: 07-29-2023 metoprolol succinate 25 mg o ral TABLET extended release Start: 07/29/23 8:00:00 AM EDT, Dose = 12.5 mg, = 0.25 tab(s), Oral, give with food, 0, 07/28/23 16:17:00 EDT Start Date: 07/29/23 Stop Date: 07/29/23 Status: Completed Start: 07-28-2023 End: 07-28-2023 metoprolol succinate 25 mg o ral TABLET extended release Start: 07/28/23 10:45:00 AM EDT, Dose = 12.5 mg, = 0.5 tab(s), Oral, Once, Stop: 07/28/23 10:51:44 AM EDT, give with food, 0, 07/28/23 10:35:00 EDT Notes: Do not crush or chew (controlled release).Take with food. Start Date: 07/28/23 Stop Date: 07/28/23 Status: Completed Multivitamin preparation (9 sources) Start: 07-29-2023 take 1 tablet by mouth once daily Multivitamin Dose = 1 tab(s), Oral, Daily, 0 Refill(s) Start Date: 07/29/23 Status: Ordered Repeat number: 1 Start: 07-29-2023 take 1 tablet by terri th once daily Multivitamin Dose = 1 tab(s), Oral, Daily, 0 Refill(s) Start Date: 07/29/23 Status: Ordered nystatin 907958 unt/ml topical cream (7 sources) Polyene Antifungal Start: 01-02-2024 nystatin (M YCOSTATIN) cream Apply to affected area as needed (Apply to perineum & scrotum twice daily.). 01/02/2024 Active Start: 11-12-2023 nystatin 100,0 00 units/g topical cream 0 Refill(s), 72.8 Start Date: 11/12/23 Status: Ordered Repeat number: 1 Start: 09-24-2023 End: 09-30-2023 nystatin 100,000 units/g top ical cream Apply 1 weston, Topical, BID, # 30 gram(s), 0 Refill(s), Cream, 72.8 Start Date: 09/24/23 Stop Date: 09/30/23 Status: Ordered ondansetron 4 mg disintegrating oral tablet (1 source) Serotonin-3 Receptor Antagonist Start: 12-03-2019 ondansetron 4 mg oral tablet, disintegrating Dose : 4 mg = 1 tab(s), Oral, q6h, PRN Nausea/Vomiting, # 20 tab(s), 0 Refill(s) Start Date: 12/03/19 Status: Ordered ONE DAILY FOR MEN 0.4-600 mg-mcg tab (1 source) Start: 01-28-2024 take 1 tablet by mouth once daily ONE DAILY FOR MEN 0.4-600 mg-mcg tab Take 1 tablet by mouth once daily. 01/28/2024 Active 24 hr oxybutynin chloride 10 mg extended release oral tablet (16 sources) Cholinergic Muscarinic Antagonist Start: 11-12-2023 take 1 tablet by mouth every hour, then take 1 tablet by mouth once daily oxybutynin 10 mg/24 hr oral tablet, extended release Dose : 10 mg = 1 tab(s), Oral, qDay, # 30 tab(s), 0 Refill(s) Start Date: 11/12/23 Status: Ordered Quantity: 30.0 Unit: tab(s) Repeat number: 1 Start: 06-16-2019 take 1 tablet by terri th every hour, then take 1 tablet by mouth once daily oxybutynin 10 mg/24 hr oral tablet, extended release Dose : 10 mg = 1 tab(s), Oral, qDay, # 30 tab(s), 0 Refill(s) Start Date: 06/16/19 Status: Ordered take 1 tablet by terri th once daily oxybutynin ER (DITROPAN XL) 10 mg 24 hr tablet Take 10 mg by mouth once daily. Active Comment on above: Take 10 mg by mouth once daily. polyethylene glycol 3350 51315 mg powder for oral solution (9 sources) Osmotic Laxative Start: 11-26-2017 Polyethylene Glycol 3350 (Miralax) 17 gram/dose powder Active 0 PO .COMPLEX 238 November 26, 2017 12:00am Mix with gatorade and start colonoscopy mixture at 4 pm Start: 11-26-2017 Polyethylene G lycol 3350 (Miralax) 17 gram/dose powder Active 0 PO .COMPLEX November 26, 2017 12:00am Mix with gatorade and start colonoscopy mixture at 4 pm polymyxin b 40665 unt/ml / trimethoprim 1 mg/ml ophthalmic solution (1 source) Dihydrofolate Reductase Inhibitor Antibacterial, Polymyxin-class Antibacterial Start: 02-06-2024 End: 02-13-2024 take 1 drop(s) into the eye(s) four times daily trimethoprim-polymyxin (POLYTRIM) 10,000 unit- 1 mg/mL ophthalmic solution Indications: Acute conjunctivitis of right eye, unspecified acute conjunctivitis type Use 1 Drop in the right eye four times daily for 7 days. 10 mL 02/06/2024 02/13/2024 Active QUEtiapine 25 mg oral tablet (15 sources) Atypical Antipsychotic Start: 03-06-2022 take 1 tablet by mouth twice daily QUEtiapine (SEROQUEL) 25 mg tablet Take 1 tablet by mouth twice daily. 03/06/2022 Active Start: 11-22-2017 End: 03-06-2022 take 1 tablet by mouth twice daily Quetiapine 50 mg tablet Active 50 mg PO TWICE A DAY November 22, 2017 12:00am Comment on above: Take 1 tablet by terri th twice daily. Take 50 mg by mouth twice daily. solifenacin succinate 10 mg oral tablet (19 sources) Cholinergic Muscarinic Antagonist Start: 4 End: 8 take 1 tablet by mouth once daily Solifenacin (Vesicare) 10 mg tablet Active 10 mg PO daily November 22, 2017 12:00am End: 03-06-2022 take 5 mg by mouth once daily solifenacin (VESICARE) 1 0 mg tablet Take 5 mg by mouth once daily. 0 03/06/2022 Discontinued Comment on above: Take 5 mg by mouth o nce daily. tamsulosin hydrochloride 0.4 mg oral capsule (11 sources) alpha-Adrenergic Adilia Start: 01-28-2024 take 0.4 mg by mouth once daily tamsulosin (FLOMAX) 0.4 mg Take 0.4 mg by mouth once daily. 01/28/2024 Active Start: 09-12-2023 tamsulosin 0.4 mg oral capsule Dose : 0.4 mg = 1 cap(s), Oral, qHS, # 90 cap(s), 0 Refill(s) Start Date: 09/12/23 Status: Ordered Start: 05-13-2013 End: 09-04-2013 take 1 capsule by mouth twice daily Tamsulosin 0.4 MG capsule Discontinued 0.4 mg PO TWICE A DAY May 13, 2013 1:00am September 04, 2013 4:39pm timolol/dorzolamide/latanop/ PF ([id number],) 0.5-2-0.005 % drop (3 sources) timolol/dorzolam michoacano/latanop/PF (EZGZOFI-[id number]-RLGFZDT,PF,) 0.5-2-0.005 % drop Use in eyes. Active timolol/dorzolam michoacano/latanop/PF (IGAJYZJ-PVPLUVXNGU-EDJSBPK,PF,) 0.5-2-0.005 % drop Use in eyes. 0 Active tobramycin 3 mg/ml ophthalmic solution (2 sources) Aminoglycoside Antibacterial Start: 05-26-2024 Tobramycin 0.3 % drops Active 1 NMA OPHTHALMIC Q2H 5 July 13, 2024 12:00am to affected eye while awake first 24 hours, then 3x/day on days 2-5 Zinc Oxide (3 sources) zinc oxide (SALVADOR TIN DAILY DEFENSE TOPICAL) Apply to affected area. Active zinc oxide (SALVADOR TIN DAILY DEFENSE TOPICAL) Apply to affected area. 0 Active Completed/Discontinued Medications Medication Drug Class(es) Dates Sig (Normalized) Sig (Original) ARIPiprazole 5 mg oral tablet (9 sources) Atypical Antipsychotic Start: 11-26-2014 End: 11-22-2017 take 1 tablet by mouth once daily Aripiprazole 5 MG tablet Discontinued 5 mg PO DAILY November 26, 2014 12:00am November 22, 2017 10:37am ciprofloxacin 500 mg oral tablet (1 source) Quinolone Antimicrobial Start: 12-17-2019 End: 12-24-2019 ciprofloxacin 500 mg oral tablet Dose : 500 mg = 1 tab(s), Oral, q12h, # 14 tab(s), 0 Refill(s), 100 Start Date: 12/17/19 Stop Date: 12/24/19 Status: Ordered dexamethasone 1 mg/ml / neomycin 3.5 mg/ml / polymyxin b 79433 unt/ml ophthalmic suspension (1 source) Aminoglycoside Antibacterial, Polymyxin-class Antibacterial, Corticosteroid End: 03-06-2022 NEOMYCIN-POLYMYXIN -DEXAMETH 3.5 MG/ML-10,000 UNIT/ML-0.1% EYE DROPS 1 Drop as needed. 0 03/06/2022 Discontinued Comment on above: 1 Drop as needed. dutasteride 0.5 mg oral capsule (9 sources) 5-alpha Reductase Inhibitor Start: 05-13-2013 End: 09-04-2013 take 1 capsule by mouth once daily Dutasteride (Avodart) 0.5 MG capsule Discontinued 0.5 mg PO DAILY May 13, 2013 1:00am September 04, 2013 4:39pm erythromycin 0.005 mg/mg ophthalmic ointment (4 sources) Macrolide, Macrolide Antimicrobial End: 02-06-2024 erythromycin (ROMYCIN) 5 mg/gram (0.5 %) ophthalmic ointment 1 application two times a day as needed (To affected eye(s).). 02/06/2024 Discontinued erythromycin (RO MYCIN) 5 mg/gram (0.5 %) ophthalmic ointment 1 application once daily. 0 Active Comment on above: 1 application once d aily. 3 ml insulin aspart, human 100 unt/ml pen injector (7 sources) Insulin Analog Start: 07-29-2023 End: 08-28-2023 NovoLOG FlexPen 100 units/mL injectable solution Dose : 5 unit(s) =, Subcutaneous, TIDAC, # 15 mL, 0 Refill(s), Pharmacy: [facility]/pharmacy #[id number], Type 2 diabetes mellitus, 182.9, cm, 07/28/23 1:57:00 EDT, Height, kg, 07/28/23 1:57:00 EDT, Dosing Weight Start Date: 07/29/23 Stop Date: 08/28/23 Status: Ordered inject 4 [IU] by sub cutaneous injection three times daily before mealtime insulin aspart U-100 (NOVOLOG FLEXPEN U-100 INSULIN) 100 unit/mL (3 mL) Inject 4 Units subcutaneously three times a day before meals. Active iv contrast (will be provided with radiology test) (2 sources) Start: 12-17-2018 End: 03-06-2022 inject 1 dose intravenously once iv contrast (will be provided with radiology test) CT Brain WO/W - No IV access, insert saline lock prior to the sedation, infusion, injection for imaging exam. Discontinue saline lock post exam. If Pt. has a central line or IVAD, may access for administration according to line specific nursing protocol. Once exam is complete flush line and de-access according to line specific nursing protocol in the CT contrast administration guidelines link. 1 Each 0 12/17/2018 03/06/2022 Discontinued Start: 11-14-2018 End: 03-06-2022 inject 1 dose intravenously once iv contrast (will be provided with radiology test) Indications: Meningioma (HCC) CT Brain WO/W - No IV access, insert saline lock prior to the sedation, infusion, injection for imaging exam. Discontinue saline lock post exam. If Pt. has a central line or IVAD, may access for administration according to line specific nursing protocol. Once exam is complete flush line and de-access according to line specific nursing protocol in the CT contrast administration guidelines link. 1 Each 0 11/14/2018 03/06/2022 Discontinued Comment on above: CT Brain WO/W - No I V access, insert saline lock prior to the sedation, infusion, injection for imaging exam. Discontinue saline lock post exam. If Pt. has a central line or IVAD, may access for administration according to line specific nursing protocol. Once exam is complete flush line and de-access according to line specific nursing protocol in the CT contrast administration guidelines link. latanoprost 0.05 mg/ml / timolol 5 mg/ml ophthalmic solution (6 sources) Prostaglandin Analog, beta-Adrenergic Adilia Start: 09-12-19 latanoprost-timolol 0.005%-0.5% ophthalmic solution 0 Refill(s) Start Date: 09/12/23 Status: Ordered Repeat number: 1 24 hr mirabegron 50 mg extended release oral tablet (10 sources) beta3-Adrenergic Agonist Start: 11-27-19 15 End: 03-06-20 take 1 tablet by mouth once daily Mirabegron 50 MG tablet extended release 24 hr Discontinued 50 mg PO DAILY November 26, 2014 12:00am November 22, 2017 10:37am Comment on above: Take by mouth once d aily. triamcinolone acetonide 1 mg/ml topical lotion (9 sources) Corticosteroid Start: 08-29-19 14 End: 11-23-19 18 Triamcinolone Acetonide 0.1% lotion Discontinued 1 % TOPICAL NEEDED as needed for DRY AREAS SCALP August 28, 2013 12:00am November 22, 2017 10:33am Start: 08-28-2013 End: 11-22-2017 Triamcinolone Acetonide Disc ontinued 1 % TOPICAL NEEDED August 28, 2013 12:00am November 22, 2017 10:33am Problems Active Problems Problem Classification Problem Date Documented Da te Episodic/Chronic Acute and unspecified renal failure (1 source) Acute renal failure syndrome; Translations: [Acute kidney failure, unspecified] Onset: 07-28-2023 Episodic Alcohol-related disorders (1 source) alcohol syndrome; 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 Anxiety disorders (5 sources) Generalized anxiety disorder; Translations: [Generalized anxiety disorder] Onset: 06-27-2006 Chronic Bacterial infection; unspecified site (1 source) Methicillin resistant Staphylococcus aureus infection; Translations: [Methicillin resistant Staphylococcus aureus infection, unspecified site] 04-30-2024 Episodic Cardiac dysrhythmias (7 sources) Unspecified atrial fibrillation; Translations: [Atrial fibrillation] Onset: 07-28-2023 Chronic Congestive heart failure; nonhypertensive (6 sources) Chronic diastolic heart failure 09-12-2023 Chronic Developmental disorders (5 sources) Intellectual disability; Translations: [Unspecified intellectual disabilities] Onset: 06-27-2006 Chronic Diabetes mellitus with complications (3 sources) Hyperosmolar non-ketotic state due to type 2 diabetes mellitus; Translations: [Type 2 diabetes mellitus with hyperosmolarity without nonketotic hyperglycemic-hyperos molar coma (N[facility])] Onset: 07-27-2023 Chronic Diabetes mellitus without complication (8 sources) Type 2 diabetes mellitus without complication; Translations: [Type 2 diabetes mellitus without complications] Onset: 07-28-2023 Chronic Epilepsy; convulsions (1 source) Seizure; Translations: [Unspecified convulsions] Onset: 06-07-2024 Episodic Genitourinary symptoms and ill-defined conditions (5 sources) Incontinence; Translations: [Mixed incontinence] Onset: 03-02-2008 Chronic Immunizations and screening for infectious disease (4 sources) Serology positive 12-17-2023 Episodic Inflammation; infection of eye (except that caused by tuberculosis or sexually transmitteddisease) (5 sources) Acute conjunctivitis of right eye; Translations: [Unspecified acute conjunctivitis, right eye] 02-06-2024 Episodic Mood disorders (5 sources) Major depressive disorder; Translations: [Major depressive disorder, single episode, unspecified] Onset: 06-27-2006 Chronic Nausea and vomiting (9 sources) Nausea; Translations: [Nausea] 12-03-2017 Episodic Other and unspecified benign neoplasm (4 sources) Neoplasm of meninges; Translations: [Benign neoplasm of meninges, unspecified] Onset: 10-22-2018 10-22-2018 Chronic Other diseases of bladder and urethra (4 sources) Detrusor and sphincter dyssynergia; 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] Onset: 03-02-2008 03-02-2008 Chronic Other gastrointestinal disorders (1 source) Umbilical discharge; Translations: [Other specified symptoms and signs involving the digestive system and abdomen] 08-09-2023 Episodic Other nutritional; endocrine; and metabolic disorders (1 source) Developmental delay; Translations: [Unspecified lack of expected normal physiological development in childhood] Episodic Other nutritional; endocrine; and metabolic disorders (1 source) Delay in physiological development; Translations: [Unspecified lack of expected normal physiological development in childhood] Onset: 07-28-2023 Episodic Other screening for suspected conditions (not mental disorders or infectious disease) (11 sources) Patient encounter status; Translations: [Encounter for screening for malignant neoplasm of colon] Onset: 02-26-2023 12-03-2017 Episodic Other skin disorders (1 source) Eruption; Translations: [Rash and other nonspecific skin eruption] 04-30-2024 Episodic Other upper respiratory disease (4 sources) Allergic rhinitis; Translations: [Allergic rhinitis, unspecified] Onset: 06-27-2006 06-27-2006 Chronic Other upper respiratory infections (1 source) Chronic sinusitis; Translations: [Chronic sinusitis, unspecified] Onset: 06-07-2024 Chronic Unclassified (5 sources) Long-term current use of insulin 11-12-2023 Past or Other Problems Problem Classification Problem Date Documented Da te Episodic/Chronic Lymphadenitis (4 sources) Lymphadenopathy; Translations: [Enlarged lymph nodes, unspecified] Onset: 03-28-2006 03-28-2006 Episodic Other eye disorders (3 sources) Entropion of left lower eyelid; Translations: [Unspecified entropion of left lower eyelid] Onset: 03-17-2021 Resolved: 03-17-2021 03-17-2021 Episodic Other gastrointestinal disorders (4 sources) Diarrhea; Translations: [Diarrhea, unspecified] Onset: 11-26-2007 11-26-2007 Episodic Other nutritional; endocrine; and metabolic disorders (4 sources) Weight loss; Translations: [Abnormal weight loss] Onset: 11-26-2007 11-26-2007 Episodic Other skin disorders (1 source) Rash and other nonspecific skin eruption; Translations: [Rash and other nonspecific skin eruption] Onset: 05-15-2024 Episodic Skin and subcutaneous tissue infections (4 sources) Cellulitis; Translations: [Cellulitis, unspecified] Onset: 04-06-2024 Episodic Viral infection (1 source) Disease caused by 2019-nCoV; Translations: [COVID-19] Onset: 07-28-2023 Results Test Name Value Interpretation Reference Range Facility [facility] 08-07-2024 QFT Criteria Comment Normal [facility] Comment on above: Result Comment: QuantiFERON-TB Gold Plus is a qualitative indirect test for M tuberculosis infection (including disease) and is intended for use in conjunction with risk assessment, radiography, and other medical and diagnostic evaluations. The QuantiFERON-TB Gold Plus result is determined by subtracting the Nil value from either TB antigen (Ag) value. The Mitogen tube serves as a control for the test. Performed By: #### C BC, ADIFF, ANEU, CMP, GFR, [id number], [id number] #### [place] [address] #### HBSAG, HBSAB, HCV1 #### [place] [address] QFT Mitogen Value >10.00 Normal [facility] Comment on above: Performed By: #### C BC, ADIFF, ANEU, CMP, GFR, 698624, [id number] #### [place] [address] #### HBSAG, HBSAB, HCV1 #### [place] [address] QFT Nil Value 0.02 IU/mL [facility] Comment on above: Performed By: #### C BC, ADIFF, ANEU, CMP, GFR, 594732, 835447 #### [place] [address] #### HBSAG, HBSAB, HCV1 #### [place] [address] QFT TB1 Ag Value 0.02 IU/mL [facility] Comment on above: Performed By: #### C BC, ADIFF, ANEU, CMP, GFR, 005385, 889035 #### [place] [address] #### HBSAG, HBSAB, HCV1 #### [place] [address] QFT TB2 Ag Value 0.02 IU/mL Normal [facility] Comment on above: Performed By: #### C MADELAINE, CHARLENE, ANEU, CMP, GFR, 552905, 263724 #### [address] [address] #### HBSAG, HBSAB, HCV1 #### [place] [address] QFT-TB Gold Plus Clt Inc Negative Normal Negative [facility] Comment on above: Result Comment: No r esponse to M tuberculosis antigens detected. Infection with M tuberculosis is unlikely, but high risk individuals should be considered for additional testing (ATS/IDSA/CDC Clinical Practice Guidelines, 2017). The reference range is an Antigen minus Nil result of <0.35 IU/mL. The specimen received for QuantiFERON testing was incubated by the ordering institution. Specific procedures outlined in our Directory of Services and in the package insert for the QuantiFERON Gold (In Tube) test must be followed to enable for proper stimulation of cells for the production of interferon gamma. Chemiluminescence immunoassay methodology Performed At: [email or web address] [address] [id number] Danita Mayfield PhD Ph:[phone] Performed By: #### C CHARLENE BURKETT, SHANNAN, CMP, GFR, 599535, 488149 #### [address] [address] #### HBSAG, HBSAB, HCV1 #### [place] [address] HBCABon 08-06-2024 Hep B Core Total Ab Negative Normal Negative [facility] Comment on above: Result Comment: Perf ormed At: [address] [id number] Danita Mayfield PhD Ph:[phone] Performed By: #### C BC, ADCIPRIANO, ANEU, CMP, GFR, 878307, 344717 #### [place] [address] #### HBSAG, HBSAB, HCV1 #### [place] [address] .Auto Diffon 08-05-2024 Basophil, Absolute 0.1 10 3/mcL Normal 0.0-0.3 [facility] Comment on above: Performed By: #### C BC, ADIFF, ANEU, CMP, GFR, 725738, 414936 #### [address] [address] #### HBSAG, HBSAB, HCV1 #### [address] [address] Basophils/100 WBC (Bld) 0.6 % Normal 0.0-2.5 [facility] Comment on above: Performed By: #### C BC, ADIFF, ANEU, CMP, GFR, 660422, 559522 #### [address] [address] #### HBSAG, HBSAB, HCV1 #### [address] [address] Eosinophil, Absolute 0.4 10 3/mcL Normal 0.0-0.7 [facility] Comment on above: Performed By: #### C BC, ADIFF, ANEU, CMP, GFR, 660422, 861660 #### [address] [address] #### HBSAG, HBSAB, HCV1 #### [address] [address] Eosinophils/100 WBC (Bld) 3.0 % Normal 0.0-6.0 [facility] Comment on above: Performed By: #### C BC, ADIFF, ANEU, CMP, GFR, 660422, 669183 #### [address] [address] #### HBSAG, HBSAB, HCV1 #### [address] [address] Lymphocyte, Absolute 2.0 10 3/mcL Normal 0.9-4.3 [facility] Comment on above: Performed By: #### C BC, ADIFF, ANEU, CMP, GFR, 660422, [id number] #### [address] [address] #### HBSAG, HBSAB, HCV1 #### [address] [address] Lymphocytes/100 WBC (Bld) 16.7 % Low 20.0-40.0 [facility] Comment on above: Performed By: #### C BC, ADIFF, ANEU, CMP, GFR, 292779, 183272 #### [address] [address] #### HBSAG, HBSAB, HCV1 #### [address] [address] Monocyte, Absolute 0.6 10 3/mcL Normal 0.1-1.4 [facility] Comment on above: Performed By: #### C BC, ADIFF, ANEU, CMP, GFR, 569393, 930251 #### [place] [address] #### HBSAG, HBSAB, HCV1 #### [address] [address] Monocytes/100 WBC (Bld) 5.2 % Normal 2.0-13.0 [facility] Comment on above: Performed By: #### C BC, ADIFF, ANEU, CMP, GFR, 410766, 449423 #### [address] [address] #### HBSAG, HBSAB, HCV1 #### [address] [address] Neutrophils/100 WBC (Bld) 74.5 % Normal 50.0-75.0 [facility] Comment on above: Performed By: #### C BC, ADIFF, ANEU, CMP, GFR, 756069, 502461 #### [address] [address] #### HBSAG, HBSAB, HCV1 #### [address] [address] .GFRon 08-05-2024 Estimated Glomerular Filtration Rate 84 ml/min/1.73sqm Normal [facility] Comment on above: Result Comment: Stages of Chronic Kidney Disease (CKD) Stage Description eGFR(ml/min/1.73 sq.m.) CKD 1 Normal kidney function or >=90 normal kindney function with possible kidney damage (ex. Proteinuria) CKD 2 Kidney damage with mild loss 60-89 of kidney function CKD 3a Mild to moderate loss of kidney 45-59 function CKD 3b Moderate to severe loss of 30-44 of kindey function CKD 4 Severe loss of kidney function 15-29 CKD 5 Kidney failure <15 Note: (go live 2024) the eGFR calculation was updated to the 2020 CKD-EPI creatinine equation without a race factor to calculate the eGFR results. Performed By: #### C BC, ADIFF, ANEU, CMP, GFR, 659265, 170841 #### [place] [address] #### HBSAG, HBSAB, HCV1 #### [address] [address] .NEUABSon 08-05-2024 Neutrophil, Absolute 9.0 10 3/mcL High 2.3-8.1 [facility] Comment on above: Performed By: #### C BC, ADIFF, ANEU, CMP, GFR, 911711, 105432 #### [place] [address] #### HBSAG, HBSAB, HCV1 #### [address] [address] CBCon 08-05-2024 Erythrocyte distribution width (RBC) [Ratio] 13.5 % Normal 11.5-15.5 [facility] Comment on above: Performed By: #### C BC, ADIFF, ANEU, CMP, GFR, 209810, 701676 #### [place] [address] #### HBSAG, HBSAB, HCV1 #### [place] [address] Hematocrit (Bld) [Volume fraction] 41.6 % Normal 40.0-52.0 [facility] Comment on above: Performed By: #### C BC, ADIFF, ANEU, CMP, GFR, 660422, 740014 #### [place] [address] #### HBSAG, HBSAB, HCV1 #### [place] [address] Hgb 14.1 G/dL Normal 13.0-17.5 [facility] Comment on above: Performed By: #### C BC, ADIFF, ANEU, CMP, GFR, 660422, 884261 #### [place] [address] #### HBSAG, HBSAB, HCV1 #### [place] [address] MCH (RBC) [Entitic mass] 32.1 pg Normal 27.0-33.0 [facility] Comment on above: Performed By: #### C BC, ADIFF, ANEU, CMP, GFR, 660422, 240551 #### [place] [address] #### HBSAG, HBSAB, HCV1 #### [place] [address] MCHC 34.0 G/dL Normal 32.0-36.0 [facility] Comment on above: Performed By: #### C BC, ADIFF, ANEU, CMP, GFR, 660422, 250297 #### [place] [address] #### HBSAG, HBSAB, HCV1 #### [place] [address] MCV (RBC) [Entitic vol] 94.4 fL Normal 81.0-100.0 [facility] Comment on above: Performed By: #### C BC, ADIFF, ANEU, CMP, GFR, 660422, 484201 #### [place] [address] #### HBSAG, HBSAB, HCV1 #### [place] [address] Platelet 256 10 3/mcL Normal 150-450 [facility] Comment on above: Performed By: #### C BC, ADIFF, ANEU, CMP, GFR, 284816, 314228 #### [address] [address] #### HBSAG, HBSAB, HCV1 #### [address] [address] Platelet mean volume (Bld) [Entitic vol] 7.2 fL Normal 6.4-10.5 [facility] Comment on above: Performed By: #### C BC, ADIFF, ANEU, CMP, GFR, 032831, 904168 #### [place] [address] #### HBSAG, HBSAB, HCV1 #### [place] [address] RBC 4.41 10 6/mcL Low 4.50-6.00 [facility] Comment on above: Performed By: #### C BC, ADIFF, ANEU, CMP, GFR, 925408, 016180 #### [place] [address] #### HBSAG, HBSAB, HCV1 #### [address] [address] WBC 12.1 10 3/mcL High 4.5-10.8 [facility] Comment on above: Performed By: #### C BC, ADIFF, ANEU, CMP, GFR, 361323, 324621 #### [place] [address] #### HBSAG, HBSAB, HCV1 #### [address] [address] CMPon 08-05-2024 Albumin Level 3.3 G/dL Low 3.4-4.8 [facility] Comment on above: Performed By: #### C BC, ADIFF, ANEU, CMP, GFR, 297335, 452680 #### [place] [address] #### HBSAG, HBSAB, HCV1 #### [place] [address] Albumin/Globulin [Mass ratio] 0.8 {ratio} Low 1.1-2.5 [facility] Comment on above: Performed By: #### C BC, ADIFF, ANEU, CMP, GFR, 493775, 410281 #### [address] [address] #### HBSAG, HBSAB, HCV1 #### [place] [address] ALP [Catalytic activity/Vol] 90 U/L Normal 40-135 [facility] Comment on above: Performed By: #### C BC, ADIFF, ANEU, CMP, GFR, 193087, 284741 #### [address] [address] #### HBSAG, HBSAB, HCV1 #### [place] [address] ALT [Catalytic activity/Vol] 27 U/L Normal 16-63 [facility] Comment on above: Performed By: #### C BC, ADIFF, ANEU, CMP, GFR, 220874, 349268 #### [place] [address] #### HBSAG, HBSAB, HCV1 #### [place] [address] AST [Catalytic activity/Vol] 16 U/L Normal 10-40 [facility] Comment on above: Performed By: #### C BC, ADIFF, ANEU, CMP, GFR, 498827, 626883 #### [place] [address] #### HBSAG, HBSAB, HCV1 #### [place] [id number] Bili Total 0.5 mg/dL Normal 0.2-1.0 [facility] Comment on above: Result Comment: Use of this assay is not recommended for patients undergoing treatment with eltrombopag due to the potential for falsely elevated results. Performed By: #### C BC, ADIFF, ANEU, CMP, GFR, 660422, [id number] #### [address] [address] #### HBSAG, HBSAB, HCV1 #### [address] [address] BUN/Creatinine Ratio 21 ratio Normal 7-27 [facility] Comment on above: Performed By: #### C BC, ADIFF, ANEU, CMP, GFR, 660422, [id number] #### [place] [address] #### HBSAG, HBSAB, HCV1 #### [address] [address] Calcium [Mass/Vol] 9.1 mg/dL Normal 8.4-10.2 [facility] Comment on above: Performed By: #### C BC, ADIFF, ANEU, CMP, GFR, 660422, [id number] #### [place] [address] #### HBSAG, HBSAB, HCV1 #### [address] [address] Chloride [Moles/Vol] 105 mmol/L Normal 98-107 [facility] Comment on above: Performed By: #### C BC, ADIFF, ANEU, CMP, GFR, 660422, [id number] #### [address] [address] #### HBSAG, HBSAB, HCV1 #### [address] [address] CO2 [Moles/Vol] 31 mmol/L Normal 23-31 [facility] Comment on above: Performed By: #### C BC, ADIFF, ANEU, CMP, GFR, 660422, [id number] #### [place] [address] #### HBSAG, HBSAB, HCV1 #### [address] [address] Creatinine [Mass/Vol] 0.95 mg/dL Normal 0.67-1.17 [facility] Comment on above: Performed By: #### C BC, ADIFF, ANEU, CMP, GFR, 660422, [id number] #### [address] [address] #### HBSAG, HBSAB, HCV1 #### [address] [address] Electrolyte Balance 5.0 mEq/L Normal 4.0-15.0 [facility] Comment on above: Performed By: #### C BC, ADIFF, ANEU, CMP, GFR, 660422, [id number] #### [address] [address] #### HBSAG, HBSAB, HCV1 #### [address] [address] Globulin 3.9 G/dL High 1.5-3.8 [facility] Comment on above: Performed By: #### C BC, ADIFF, ANEU, CMP, GFR, 660422, [id number] #### [place] [address] #### HBSAG, HBSAB, HCV1 #### [address] [address] Glucose [Mass/Vol] 107 mg/dL Normal 83-110 [facility] Comment on above: Performed By: #### C BC, ADIFF, ANEU, CMP, GFR, 660422, 562765 #### [address] [address] #### HBSAG, HBSAB, HCV1 #### [address] [address] Potassium [Moles/Vol] 4.3 mmol/L Normal 3.5-5.1 [facility] Comment on above: Performed By: #### C BC, ADIFF, ANEU, CMP, GFR, 660422, [id number] #### [address] [address] #### HBSAG, HBSAB, HCV1 #### [address] [address] Sodium [Moles/Vol] 141 mmol/L Normal 136-145 [facility] Comment on above: Performed By: #### C BC, ADIFF, ANEU, CMP, GFR, 775012, 383984 #### [address] [address] #### HBSAG, HBSAB, HCV1 #### [address] [address] Total Protein 7.2 G/dL Normal 6.4-8.2 [facility] Comment on above: Performed By: #### C BC, ADIFF, ANEU, CMP, GFR, 261039, 701710 #### [address] [address] #### HBSAG, HBSAB, HCV1 #### [address] [address] Urea nitrogen [Mass/Vol] 20 mg/dL High 7-18 [facility] Comment on above: Performed By: #### C BC, ADIFF, ANEU, CMP, GFR, 660422, [id number] #### [address] [address] #### HBSAG, HBSAB, HCV1 #### [address] [address] HBSABon 08-05-2024 Hep B Surf Ab <3.1 Low >=10.0 [facility] Comment on above: Result Comment: 0 to < 10.0 mIU/mL Nonreactive Patient is considered not to have protective immunity to HBV infection >/= 10.0 mIU/mL Reactive Patient is considered to have protective immunity to HBV infection. This assay is traceable to the World Health Organization (WHO) Hepatitis B Immunoglobulin 1st International Reference Preparation (1976). The accepted criteria for immunity to HBV is anti-HBs activity >/= 10.0 mIU/mL, as defined by the WHO International Reference Preparation. Performed By: #### C BC, ADIFF, ANEU, CMP, GFR, 013224, [id number] #### [place] [address] #### HBSAG, HBSAB, HCV1 #### [place] [address] HBSAGon 08-05-2024 Hep B Surf Ag Non-Reactive Normal Non-Reactiv e [facility] Comment on above: Performed By: #### C BC, ADIFF, ANEU, CMP, GFR, 609700, 610633 #### [address] [address] #### HBSAG, HBSAB, HCV1 #### [place] [address] HCVon 08-05-2024 Hep C Ab Non-Reactive Normal Non-Reactiv e [facility] Comment on above: Performed By: #### C BC, ADIFF, ANEU, CMP, GFR, 128014, 514484 #### [place] [address] #### HBSAG, HBSAB, HCV1 #### [place] [address] Hep C Ab Int [facility] Comment on above: Result Comment: Nonr eactive: Samples with a value < 0.80 are considered nonreactive (negative) for antibodies to HCV. A negative test result does not exclude the possibility of exposure to or infection with HCV. HCV antibodies may be undetectable in some stages of the infection and in some clinical conditions. See Interp Performed By: #### C BC, ADIFF, ANEU, CMP, GFR, 645602, 759987 #### [place] [address] #### HBSAG, HBSAB, HCV1 #### [place] [address] LABORATORYOrdered By: SYSTEM SYSTEM on 08-05-2024 Albumin BCP dye [Mass/Vol] 3.3 G/dL Low 3.4 - 4.8 G/dL AO ADM SS Albumin/Globulin [Mass ratio] 0.8 {ratio} Low 1.1 - 2.5 ratio AO ADM SS ALP [Catalytic activity/Vol] 90 U/L Normal 40 - 135 U/L AO ADM SS ALT With P-5'-P [Catalytic activity/Vol] 27 U/L Normal 16 - 63 U/L AO ADM SS AST With P-5'-P [Catalytic activity/Vol] 16 U/L Normal 10 - 40 U/L AO ADM SS Basophils (Bld) [#/Vol] 0.1 103/mcL Normal 0.0 - 0.3 10^3/mcL AO Workflow SS Basophils/100 WBC (Bld) 0.6 % Normal 0.0 - 2.5 % AO Workflow SS Bilirubin [Mass/Vol] 0.5 mg/dL Normal 0.2 - 1 .0 mg/dL AO ADM SS Comment on above: Interpretive Data: U se of this assay is not recommended for patients undergoing treatment with eltrombopag due to the potential for falsely elevated results. Calcium [Mass/Vol] 9.1 mg/dL Normal 8.4 - 10. 2 mg/dL AO ADM SS Chloride [Moles/Vol] 105 mmol/L Normal 98 - 10 7 mmol/L AO ADM SS CO2 [Moles/Vol] 31 mmol/L Normal 23 - 31 mmol/L AO ADM SS Creatinine [Mass/Vol] 0.95 mg/dL Normal 0.67 - 1.17 mg/dL AO ADM SS Electrolyte Balance 5.0 mEq/L Normal 4.0 - 15 .0 mEq/L AO ADM SS Eosinophil, Absolute 0.4 103/mcL Normal 0.0 - 0 .7 10^3/mcL AO Workflow SS Eosinophils/100 WBC (Bld) 3.0 % Normal 0.0 - 6.0 % AO Workflow SS Erythrocyte distribution width (RBC) [Ratio] 13.5 % Normal 11.5 - 15.5 % AO Workflow SS Estimated Glomerular Filtration Rate 84 ml/min/1.73sqm Invalid Interpretation Code AO Chemistry S Comment on above: Interpretive Data: Stages of Chronic Kidney Disease (CKD) Stage Description eGFR(ml/min/1.73 sq.m.) CKD 1 Normal kidney function or >=90 normal kindney function with possible kidney damage (ex. Proteinuria) CKD 2 Kidney damage with mild loss 60-89 of kidney function CKD 3a Mild to moderate loss of kidney 45-59 function CKD 3b Moderate to severe loss of 30-44 of kindey function CKD 4 Severe loss of kidney function 15-29 CKD 5 Kidney failure <15 Note: (go live 2024) the eGFR calculation was updated to the 2020 CKD-EPI creatinine equation without a race factor to calculate the eGFR results. Globulin 3.9 G/dL High 1.5 - 3.8 G/dL AO ADM SS Glucose [Mass/Vol] 107 mg/dL Normal 83 - 110 mg/dL AO ADM SS Hematocrit (Bld) [Volume fraction] 41.6 % Normal 40.0 - 52.0 % AO Workflow SS Hemoglobin (Bld) [Mass/Vol] 14.1 G/dL Normal 13.0 - 17.5 G/dL AO Workflow SS Lymphocytes (Bld) [#/Vol] 2.0 103/mcL Normal 0.9 - 4.3 10^3/mcL AO Workflow SS Lymphocytes/100 WBC (Bld) 16.7 % Low 20.0 - 40.0 % AO Workflow SS MCH (RBC) [Entitic mass] 32.1 pg Normal 27.0 - 33.0 pg AO Workflow SS MCHC 34.0 G/dL Normal 32.0 - 36.0 G/dL AO Workflow SS MCV (RBC) [Entitic vol] 94.4 fL Normal 81.0 - 100.0 fL AO Workflow SS Monocytes (Bld) [#/Vol] 0.6 103/mcL Normal 0.1 - 1.4 10^3/mcL AO Workflow SS Monocytes/100 WBC (Bld) 5.2 % Normal 2.0 - 13.0 % AO Workflow SS Neutrophils (Bld) [#/Vol] 9.0 103/mcL High 2.3 - 8.1 10^3/mcL AO Workflow SS Neutrophils/100 WBC (Bld) 74.5 % Normal 50.0 - 75.0 % AO Workflow SS Platelet mean volume (Bld) [Entitic vol] 7.2 fL Normal 6.4 - 10.5 fL AO Workflow SS Platelets (Bld) [#/Vol] 256 103/mcL Normal 150 - 450 10^3/mcL AO Workflow SS Potassium [Moles/Vol] 4.3 mmol/L Normal 3.5 - 5.1 mmol/L AO ADM SS Protein [Mass/Vol] 7.2 G/dL Normal 6.4 - 8.2 G/dL AO ADM SS RBC (Bld) [#/Vol] 4.41 106/mcL Low 4.50 - 6.0 0 10^6/mcL AO Workflow SS Sodium [Moles/Vol] 141 mmol/L Normal 136 - 145 mmol/L AO ADM SS Urea nitrogen [Mass/Vol] 20 mg/dL High 7 - 18 mg/dL AO ADM SS Urea nitrogen/Creatinine [Mass ratio] 21 ratio Normal 7 - 27 ratio AO ADM SS WBC (Bld) [#/Vol] 12.1 103/mcL High 4.5 - 10.8 10^3/mcL AO Workflow SS LABORATORYOrdered By: Elsie Whiteside on 08-05-2024 HBV surface Ab Qn (S) mIU/mL Low >=10.0 mIU/m L AH ADM SS Comment on above: Interpretive Data: 0 to < 10.0 mIU/mL Nonreactive Patient is considered not to have protective immunity to HBV infection >/= 10.0 mIU/mL Reactive Patient is considered to have protective immunity to HBV infection. This assay is traceable to the World Health Organization (WHO) Hepatitis B Immunoglobulin 1st International Reference Preparation (1976). The accepted criteria for immunity to HBV is anti-HBs activity >/= 10.0 mIU/mL, as defined by the WHO International Reference Preparation. HBV surface Ag IA Ql Non-Reactive (08/05/24 9:35 AM) Normal Non-Reactiv e AH ADM SS HCV Ab IA Ql Non-Reactive (08/05/24 9:35 AM) Normal Non-Reactiv e AH ADM SS HCV Ab IA Ql Nonreactive: Samples with a value < 0.80 are considered nonreactive (negative) for antibodies to HCV. A negative test result does not exclude the possibility of exposure to or infection with HCV. HCV antibodies may be undetectable in some stages of the infection and in some clinical conditions. Invalid Interpretation Code Chemistry S Urgent Care Visit Reporton 0 07-13-2024 Urgent Care Visit Report [facility] [address], [address] [place] [address] OFFICE VISIT Date of Service: 07/13/24 MR#: [id number] Acct: [id number] Name: RENNY RUSSO Rep #: [id number] : 1950 Provider: PENNY Ayala Age/Sex: 74/M Location: [facility] Status: Signed Intake Vital Signs 04/22/24 14:09 07/13/24 12:49 Height 6 ft 2 in Weight: 170 lb 3.15 oz BMI 21.8 BP 110/67 120/78 Blood Pressure Location Lt brachial Position Sitting Respiration 18 18 Pulse 99 71 Pulse Source Monitor Temp 97.1 F L 97.7 F L Temp Source Temporal Temporal Pulse Oximetry (%) 98 96 Oxygen Delivery Method room air Intake Visit Reasons: RED 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 Has h/o cellulitis in same eye. Pt states it hurts and is itchy. It is seeping, and red. Denies visual disturbances. It is down onto the R cheek and below brown bone. States there has been no treatment. It started looking bad last night, although this is a sit in caregiver and not his usual one so timeline is not certain. Has not been to an eye Dr. since last month.It did completely resolve. L side of face by nose appears to have a red troy. Unable to reconcile meds due to having sit in caregiver, but did finish last round of atbs [facility] Medical History Cellulitis of right eyelid Conjunctivitis, right eye MRSA (methicillin resistant staph aureus) culture positive Tobacco use Fatigue Hyperlipidemia OAB (overactive bladder) SYED (generalized anxiety disorder) Intellectual disability Social History Smoking Status: Current every day smoker tobacco type: cigarettes alcohol intake: never substance use type: does not use HPI HPI Details: RENNY RUSSO, is a 74 M who presents to the office today for persistent right eye conjunctival injection with exudate since 05/26/2024. 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 [employer] Blind Worker also states the patient has has chronic erythema circumferential to the right eye since February 2024, stating dermatology thinks it is likely a psoriasis or atopic dermatitis process for which she is on chronic corticosteroids. No complaints of fever, chills, sweats. MRDD patient under the care of the heat and frost insulator helper who accompanies patient today. No other complaints at this time. ROS Const Constitutional: No other (As above) Exam Const General: cooperative, healthy appearing and no acute distress Nutritional Appearance: average body habitus Orientation: alert and awake HENIL Head: normal to inspection Ears: hearing grossly normal bilaterally and external ears normal Nose: external nose normal Eyes General: appearance normal, both eyes and all related structures (Except OD conjunctival injection with exudate; negative limbus OD) Other: OD circumocular erythema throughout upper and lower eyelids as well as right cheek of approximately 5 cm x 10 cm diameter Neck Neck: normal visual inspection and no meningeal signs Resp Effort Inspection: normal respiratory effort and able to speak in complete sentences Cardio Rate: regular rate Pulses: radial pulses present Skin General: no rashes or lesions noted Neuro General: patient alert and patient awake Cognition: normal cognition Speech: speech normal Psych Appearance: grossly normal Mental Status: mental status grossly normal Mood: congruent mood Affect: normal affect Speech and Movement: speech and movement normal Attitude: cooperative Diagnoses Conjunctivitis, right eye H10.9 Cellulitis of right eyelid H00.033 Assessment and Plan Assessment and Plan (1) Conjunctivitis, right eye: Status: Acute (2) Cellulitis of right eyelid: Status: Acute Plan: - vs psoriasis versus atopic dermatitis Tobrex ophthalmic drops as re-prescribed today. Clindamycin as prescribed today. Eye hygiene care as instructed today. No work until 06/01/2024. As instructed last evaluation here - patient is to follow-up with PCP (or ophthalmology) in 2 to 3 days should symptoms not improve, sooner should symptoms worsen or any other concerns develop. Patient's heat and frost insulator helper states acknowledging understanding all the above. Coding Level of Care Code Off vis,est,level 3 Assessment and Plan Assessment and Plan Medications: New (more content not included)... Normal [facility] .Auto Diffon 06-07-2024 Basophil, Absolute 0.1 10 3/mcL Normal 0.0-0.2 [facility] Comment on above: Performed By: #### C BC, ADIFF, ANEU, CMP, GFR, 232285, 032590 #### [address] [address] #### HBSAG, HBSAB, HCV1 #### [address] [address] Basophils/100 WBC (Bld) 0.6 % Normal 0.0-2.5 [facility] Comment on above: Performed By: #### C BC, ADIFF, ANEU, CMP, GFR, 660422, 239272 #### [place] [address] #### HBSAG, HBSAB, HCV1 #### [address] [address] Eosinophil, Absolute 0.1 10 3/mcL Normal 0.0-0.7 [facility] Comment on above: Performed By: #### C BC, ADIFF, ANEU, CMP, GFR, 660422, 627458 #### [place] [address] #### HBSAG, HBSAB, HCV1 #### [address] [address] Eosinophils/100 WBC (Bld) 1.2 % Normal 0.0-7.0 [facility] Comment on above: Performed By: #### C BC, ADIFF, ANEU, CMP, GFR, 660422, 601317 #### [place] [address] #### HBSAG, HBSAB, HCV1 #### [address] [address] Lymphocyte, Absolute 1.4 10 3/mcL Normal 0.9-4.3 [facility] Comment on above: Performed By: #### C BC, ADIFF, ANEU, CMP, GFR, 660422, 096382 #### [place] [address] #### HBSAG, HBSAB, HCV1 #### [address] [address] Lymphocytes/100 WBC (Bld) 13.4 % Low 20.0-40.0 [facility] Comment on above: Performed By: #### C BC, ADIFF, ANEU, CMP, GFR, 660422, 424557 #### [address] [address] #### HBSAG, HBSAB, HCV1 #### [address] [address] Monocyte, Absolute 0.9 10 3/mcL Normal 0.1-1.4 [facility] Comment on above: Performed By: #### C BC, ADIFF, ANEU, CMP, GFR, 711225, 385588 #### [address] [address] #### HBSAG, HBSAB, HCV1 #### [address] [address] Monocytes/100 WBC (Bld) 8.6 % Normal 2.0-13.0 [facility] Comment on above: Performed By: #### C BC, ADIFF, ANEU, CMP, GFR, 312966, 896151 #### [address] [address] #### HBSAG, HBSAB, HCV1 #### [address] [address] Neutrophils/100 WBC (Bld) 76.2 % High 50.0-75.0 [facility] Comment on above: Performed By: #### C BC, ADIFF, ANEU, CMP, GFR, 655028, 914362 #### [address] [address] #### HBSAG, HBSAB, HCV1 #### [address] [address] .GFRon 06-07-2024 Estimated Glomerular Filtration Rate 73 ml/min/1.73sqm Normal [facility] Comment on above: Result Comment: Stages of Chronic Kidney Disease (CKD) Stage Description eGFR(ml/min/1.73 sq.m.) CKD 1 Normal kidney function or >=90 normal kindney function with possible kidney damage (ex. Proteinuria) CKD 2 Kidney damage with mild loss 60-89 of kidney function CKD 3a Mild to moderate loss of kidney 45-59 function CKD 3b Moderate to severe loss of 30-44 of kindey function CKD 4 Severe loss of kidney function 15-29 CKD 5 Kidney failure <15 Note: (go live 2024) the eGFR calculation was updated to the 2020 CKD-EPI creatinine equation without a race factor to calculate the eGFR results. Performed By: #### C BC, ADIFF, ANEU, CMP, GFR, 199407, 308861 #### [place] [address] #### HBSAG, HBSAB, HCV1 #### [place] [address] .MDWon 06-07-2024 Monocyte Distribution Width 20.06 High 0.00-20.00 [facility] Comment on above: Result Comment: For adults in ED, MDW>20.0 may be associated with a higher risk of sepsis during the first 12hrs of hospital admission Performed By: #### C BC, ADIFF, ANEU, CMP, GFR, 820294, 450717 #### [place] [address] #### HBSAG, HBSAB, HCV1 #### [place] [address] .NEUABSon 06-07-2024 Neutrophil, Absolute 7.8 10 3/mcL Normal 2.3-8.1 [facility] Comment on above: Performed By: #### C BC, ADIFF, ANEU, CMP, GFR, 683451, 949091 #### [place] [address] #### HBSAG, HBSAB, HCV1 #### [place] [address] CBCon 06-07-2024 Erythrocyte distribution width (RBC) [Ratio] 14.3 % Normal 11.5-15.5 [facility] Comment on above: Performed By: #### C BC, ADIFF, ANEU, CMP, GFR, 887679, 769814 #### [place] [address] #### HBSAG, HBSAB, HCV1 #### [place] [address] Hematocrit (Bld) [Volume fraction] 43.2 % Normal 40.0-52.0 [facility] Comment on above: Performed By: #### C BC, ADIFF, ANEU, CMP, GFR, 660422, [id number] #### [address] [address] #### HBSAG, HBSAB, HCV1 #### [place] [address] Hgb 14.7 G/dL Normal 13.0-17.5 [facility] Comment on above: Performed By: #### C BC, ADIFF, ANEU, CMP, GFR, 660422, [id number] #### [place] [address] #### HBSAG, HBSAB, HCV1 #### [place] [address] MCH (RBC) [Entitic mass] 32.2 pg Normal 27.0-33.0 [facility] Comment on above: Performed By: #### C BC, ADIFF, ANEU, CMP, GFR, 660422, [id number] #### [place] [address] #### HBSAG, HBSAB, HCV1 #### [place] [address] MCHC 34.0 G/dL Normal 32.0-36.0 [facility] Comment on above: Performed By: #### C BC, ADIFF, ANEU, CMP, GFR, 660422, [id number] #### [place] [address] #### HBSAG, HBSAB, HCV1 #### [place] [address] MCV (RBC) [Entitic vol] 94.6 fL Normal 81.0-100.0 [facility] Comment on above: Performed By: #### C BC, ADIFF, ANEU, CMP, GFR, 660422, [id number] #### [place] [address] #### HBSAG, HBSAB, HCV1 #### [place] [address] Platelet 227 10 3/mcL Normal 150-450 [facility] Comment on above: Performed By: #### C BC, ADIFF, ANEU, CMP, GFR, 109489, 143010 #### [place] [address] #### HBSAG, HBSAB, HCV1 #### [place] [address] Platelet mean volume (Bld) [Entitic vol] 7.7 fL Normal 6.4-10.5 [facility] Comment on above: Performed By: #### C BC, ADIFF, ANEU, CMP, GFR, 814709, 140473 #### [place] [address] #### HBSAG, HBSAB, HCV1 #### [place] [address] RBC 4.57 10 6/mcL Normal 4.50-6.00 [facility] Comment on above: Performed By: #### C BC, ADIFF, ANEU, CMP, GFR, 173241, 853112 #### [place] [address] #### HBSAG, HBSAB, HCV1 #### [place] [address] WBC 10.2 10 3/mcL Normal 4.5-10.8 [facility] Comment on above: Performed By: #### C BC, ADIFF, ANEU, CMP, GFR, 285482, 761870 #### [place] [address] #### HBSAG, HBSAB, HCV1 #### [place] [address] CMPon 06-07-2024 Albumin Level 3.7 G/dL Normal 3.4-4.8 [facility] Comment on above: Performed By: #### C BC, ADIFF, ANEU, CMP, GFR, 660422, 295519 #### [address] [address] #### HBSAG, HBSAB, HCV1 #### [place] [address] Albumin/Globulin [Mass ratio] 1.1 {ratio} Normal 1.1-2.5 [facility] Comment on above: Performed By: #### C BC, ADIFF, ANEU, CMP, GFR, 660422, 497597 #### [place] [address] #### HBSAG, HBSAB, HCV1 #### [place] [address] ALP [Catalytic activity/Vol] 84 U/L Normal 40-135 [facility] Comment on above: Performed By: #### C BC, ADIFF, ANEU, CMP, GFR, 660422, 731146 #### [place] [address] #### HBSAG, HBSAB, HCV1 #### [place] [address] ALT [Catalytic activity/Vol] 29 U/L Normal 16-63 [facility] Comment on above: Performed By: #### C BC, ADIFF, ANEU, CMP, GFR, 660422, 337461 #### [place] [address] #### HBSAG, HBSAB, HCV1 #### [place] [address] AST [Catalytic activity/Vol] 11 U/L Normal 10-40 [facility] Comment on above: Performed By: #### C BC, ADIFF, ANEU, CMP, GFR, 660422, 081321 #### [place] [address] #### HBSAG, HBSAB, HCV1 #### [place] [address] Bili Total 0.4 mg/dL Normal 0.2-1.0 [facility] Comment on above: Result Comment: Use of this assay is not recommended for patients undergoing treatment with eltrombopag due to the potential for falsely elevated results. Performed By: #### C BC, ADIFF, ANEU, CMP, GFR, 270989, [id number] #### [place] [address] #### HBSAG, HBSAB, HCV1 #### [address] [address] BUN/Creatinine Ratio 17 ratio Normal 7-27 [facility] Comment on above: Performed By: #### C BC, ADIFF, ANEU, CMP, GFR, 638534, [id number] #### [place] [address] #### HBSAG, HBSAB, HCV1 #### [place] [id number] Calcium [Mass/Vol] 9.0 mg/dL Normal 8.4-10.2 [facility] Comment on above: Performed By: #### C BC, ADIFF, ANEU, CMP, GFR, 660422, [id number] #### [place] [address] #### HBSAG, HBSAB, HCV1 #### [address] [address] Chloride [Moles/Vol] 103 mmol/L Normal 98-107 [facility] Comment on above: Performed By: #### C BC, ADIFF, ANEU, CMP, GFR, 660422, [id number] #### [place] [address] #### HBSAG, HBSAB, HCV1 #### [address] [address] CO2 [Moles/Vol] 23 mmol/L Normal 23-31 [facility] Comment on above: Performed By: #### C BC, ADIFF, ANEU, CMP, GFR, 660422, [id number] #### [place] [address] #### HBSAG, HBSAB, HCV1 #### [address] [address] Creatinine [Mass/Vol] 1.07 mg/dL Normal 0.70-1.30 [facility] Comment on above: Result Comment: Test ing performed on Siemens Dimension EXL analyzer using a modified kinetic Colleen technique. Performed By: #### C BC, ADIFF, ANEU, CMP, GFR, 660422, 949274 #### [place] [address] #### HBSAG, HBSAB, HCV1 #### [address] [address] Electrolyte Balance 12.0 mEq/L Normal 4.0-15.0 [facility] Comment on above: Performed By: #### C BC, ADIFF, ANEU, CMP, GFR, 660422, [id number] #### [place] [address] #### HBSAG, HBSAB, HCV1 #### [place] [id number] Globulin 3.4 G/dL Normal 1.5-3.8 [facility] Comment on above: Performed By: #### C BC, ADIFF, ANEU, CMP, GFR, 660422, 860076 #### [place] [address] #### HBSAG, HBSAB, HCV1 #### [place] [id number] Glucose [Mass/Vol] 182 mg/dL High 83-110 [facility] Comment on above: Performed By: #### C BC, ADIFF, ANEU, CMP, GFR, 660422, 634556 #### [place] [address] #### HBSAG, HBSAB, HCV1 #### [address] [address] Potassium [Moles/Vol] 3.9 mmol/L Normal 3.5-5.1 [facility] Comment on above: Performed By: #### C BC, ADIFF, ANEU, CMP, GFR, 859422, 880063 #### [address] [address] #### HBSAG, HBSAB, HCV1 #### [place] [address] Sodium [Moles/Vol] 138 mmol/L Normal 136-145 [facility] Comment on above: Performed By: #### C BC, ADIFF, ANEU, CMP, GFR, 152853, 591472 #### [address] [address] #### HBSAG, HBSAB, HCV1 #### [place] [address] Total Protein 7.1 G/dL Normal 6.4-8.2 [facility] Comment on above: Performed By: #### C BC, ADIFF, ANEU, CMP, GFR, 446092, 370199 #### [place] [address] #### HBSAG, HBSAB, HCV1 #### [place] [id number] Urea nitrogen [Mass/Vol] 18 mg/dL Normal 7-18 [facility] Comment on above: Performed By: #### C BC, ADIFF, ANEU, CMP, GFR, 615933, 466837 #### [place] [address] #### HBSAG, HBSAB, HCV1 #### [place] [address] CT HEAD OR BRAIN W/O CONTRAS Ton 06-07-2024 CT HEAD OR BRAIN W/O CONTRAST ORIGINAL EXAMINATION: CT OF THE HEAD WITHOUT CONTRAST 06/07/2024 2:11 pm TECHNIQUE: CT of the head was performed without the administration of intravenous contrast. Automated exposure control, iterative reconstruction, and/or weight based adjustment of the mA/kV was utilized to reduce the radiation dose to as low as reasonably achievable. COMPARISON: None. HISTORY: ORDERING SYSTEM PROVIDED HISTORY: Reason for Exam: seizures FINDINGS: Mucosal thickening is present within the maxillary sinuses and the bilateral ethmoid air cells. Minimal dependent fluid is present in the right compartment of the sphenoid sinus. There is a paucity of aerated left mastoid air cells, compatible with chronic/previous mastoiditis. No calvarial abnormality seen. The brain shows moderate atrophy with appropriate prominence of the CSF spaces. No hemorrhage or mass is visible. Sulci and xiong-white junctions are preserved. A 1 cm extra-axial lesion is evident at the superior and anterior falx eccentric toward the left with some calcification. 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 No significant adjacent mass effect is visible. No additional contributory finding. IMPRESSION: 1. Paranasal sinus disease. 2. No acute intracranial abnormality. 3. Atrophy. Interpreted by: Ashok Hernandez MD Preliminary Report By: Ashok Hernandez MD Electronically signed By Ashok Hernandez MD Dictated Date: 06/07/2024 2:17:40 PM Prelim Date: 06/07/2024 2:19:30 PM Sign Date: 06/07/2024 2:19:30 PM Ordering Provider: SAMIA Jules [facility]dered By: SYSTEM SYSTEM on 06-07-2024 Albumin BCP dye [Mass/Vol] 3.7 G/dL Normal 3.4 - 4.8 G/dL AO ADM SS Albumin/Globulin [Mass ratio] 1.1 {ratio} Normal 1.1 - 2.5 ratio AO ADM SS ALP [Catalytic activity/Vol] 84 U/L Normal 40 - 135 U/L AO ADM SS ALT With P-5'-P [Catalytic activity/Vol] 29 U/L Normal 16 - 63 U/L AO ADM SS AST With P-5'-P [Catalytic activity/Vol] 11 U/L Normal 10 - 40 U/L AO ADM SS Basophils (Bld) [#/Vol] 0.1 103/mcL Normal 0.0 - 0.2 10^3/mcL AO Workflow SS Basophils/100 WBC (Bld) 0.6 % Normal 0.0 - 2.5 % AO Workflow SS Bilirubin [Mass/Vol] 0.4 mg/dL Normal 0.2 - 1 .0 mg/dL AO ADM SS Comment on above: Interpretive Data: U se of this assay is not recommended for patients undergoing treatment with eltrombopag due to the potential for falsely elevated results. Calcium [Mass/Vol] 9.0 mg/dL Normal 8.4 - 10. 2 mg/dL AO ADM SS Chloride [Moles/Vol] 103 mmol/L Normal 98 - 10 7 mmol/L AO ADM SS CO2 [Moles/Vol] 23 mmol/L Normal 23 - 31 mmol/L AO ADM SS Creatinine [Mass/Vol] 1.07 mg/dL Normal 0.70 - 1.30 mg/dL AO ADM SS Comment on above: Interpretive Data: T esting performed on Siemens Dimension EXL analyzer using a modified kinetic Colleen technique. Electrolyte Balance 12.0 mEq/L Normal 4.0 - 15 .0 mEq/L AO ADM SS Eosinophil, Absolute 0.1 103/mcL Normal 0.0 - 0 .7 10^3/mcL AO Workflow SS Eosinophils/100 WBC (Bld) 1.2 % Normal 0.0 - 7.0 % AO Workflow SS Erythrocyte distribution width (RBC) [Ratio] 14.3 % Normal 11.5 - 15.5 % AO Workflow SS Estimated Glomerular Filtration Rate 73 ml/min/1.73sqm Invalid Interpretation Code AO Chemistry S Comment on above: Interpretive Data: Stages of Chronic Kidney Disease (CKD) Stage Description eGFR(ml/min/1.73 sq.m.) CKD 1 Normal kidney function or >=90 normal kindney function with possible kidney damage (ex. Proteinuria) CKD 2 Kidney damage with mild loss 60-89 of kidney function CKD 3a Mild to moderate loss of kidney 45-59 function CKD 3b Moderate to severe loss of 30-44 of kindey function CKD 4 Severe loss of kidney function 15-29 CKD 5 Kidney failure <15 Note: (go live 2024) the eGFR calculation was updated to the 2020 CKD-EPI creatinine equation without a race factor to calculate the eGFR results. Globulin 3.4 G/dL Normal 1.5 - 3.8 G/dL AO ADM SS Glucose [Mass/Vol] 182 mg/dL High 83 - 110 mg/dL AO ADM SS Hematocrit (Bld) [Volume fraction] 43.2 % Normal 40.0 - 52.0 % AO Workflow SS Hemoglobin (Bld) [Mass/Vol] 14.7 G/dL Normal 13.0 - 17.5 G/dL AO Workflow SS Lymphocytes (Bld) [#/Vol] 1.4 103/mcL Normal 0.9 - 4.3 10^3/mcL AO Workflow SS Lymphocytes/100 WBC (Bld) 13.4 % Low 20.0 - 40.0 % AO Workflow SS MCH (RBC) [Entitic mass] 32.2 pg Normal 27.0 - 33.0 pg AO Workflow SS MCHC 34.0 G/dL Normal 32.0 - 36.0 G/dL AO Workflow SS MCV (RBC) [Entitic vol] 94.6 fL Normal 81.0 - 100.0 fL AO Workflow SS Monocyte distribution width Auto (Bld) [Entitic vol] 20.06 1 High 0.00 - 20.00 AO Workflow SS Comment on above: Result Comment: For adults in ED, MDW>20.0 may be associated with a higher risk of sepsis during the first 12hrs of hospital admission Monocytes (Bld) [#/Vol] 0.9 103/mcL Normal 0.1 - 1.4 10^3/mcL AO Workflow SS Monocytes/100 WBC (Bld) 8.6 % Normal 2.0 - 13.0 % AO Workflow SS Neutrophils (Bld) [#/Vol] 7.8 103/mcL Normal 2.3 - 8.1 10^3/mcL AO Workflow SS Neutrophils/100 WBC (Bld) 76.2 % High 50.0 - 75.0 % AO Workflow SS Platelet mean volume (Bld) [Entitic vol] 7.7 fL Normal 6.4 - 10.5 fL AO Workflow SS Platelets (Bld) [#/Vol] 227 103/mcL Normal 150 - 450 10^3/mcL AO Workflow SS Potassium [Moles/Vol] 3.9 mmol/L Normal 3.5 - 5.1 mmol/L AO ADM SS Protein [Mass/Vol] 7.1 G/dL Normal 6.4 - 8.2 G/dL AO ADM SS RBC (Bld) [#/Vol] 4.57 106/mcL Normal 4.50 - 6.0 0 10^6/mcL AO Workflow SS Sodium [Moles/Vol] 138 mmol/L Normal 136 - 145 mmol/L AO ADM SS Urea nitrogen [Mass/Vol] 18 mg/dL Normal 7 - 18 mg/dL AO ADM SS Urea nitrogen/Creatinine [Mass ratio] 17 ratio Normal 7 - 27 ratio AO ADM SS WBC (Bld) [#/Vol] 10.2 103/mcL Normal 4.5 - 10.8 10^3/mcL AO Workflow SS XR CHEST 1 VIEWon 06-07-2024 XR CHEST 1 VIEW ORIGINAL EXAMINATION: ONE XRAY VIEW OF THE CHEST 06/07/2024 2:11 pm COMPARISON: July 28, 2023 HISTORY: ORDERING SYSTEM PROVIDED HISTORY: Reason for Exam: SOB/cough/fever FINDINGS: The heart is normal in size and there is no vascular congestion present. Areas of atelectasis are evident at the left lung base. No other infiltrate is visible. There may be trace left pleural fluid. Minor degenerative changes noted in the spine. IMPRESSION: Left basilar atelectasis. Interpreted by: Ashok Hernandez MD Preliminary Report By: Ashok Hernandez MD Electronically signed By Ashok Hernandez MD Dictated Date: 06/07/2024 2:16:01 PM Prelim Date: 06/07/2024 2:16:33 PM Sign Date: 06/07/2024 2:16:33 PM Ordering Provider: SAMIA Jules [facility] Ur[facility] Care Visit Reporton 0 05-26-2024 Urgent Care Visit Report [facility] [address], [address] [place] [address] OFFICE VISIT Date of Service: 05/26/24 MR#: [id number] Acct: [id number] Name: RENNY RUSSO Rep #: [id number] : 1950 Provider: PENNY Ayala Age/Sex: 74/M Location: [facility] Status: Signed Intake Vital Signs 04/22/24 14:09 05/26/24 15:21 Height 6 ft 2 in BP 116/70 Blood Pressure Location Lt brachial Position Sitting Respiration 12 Pulse 71 Pulse Source NIBP Temp 97.5 F L Temp Source Oral Pulse Oximetry (%) 97 Oxygen Delivery Method room air Intake Visit Reasons: R EYE CONCERN Allergies azithromycin Allergy (Intermediate, Verified 05/26/24 15:23) Rash sulfamethoxazole (From Bactrim) Allergy (Intermediate, Verified 05/26/24 15:23) Rash trimethoprim (From Bactrim) Allergy (Intermediate, Verified 05/26/24 15:23) Rash Medications ???Medication ???Instructions ???Recorded ???Confirmed ???Type buspirone 10 mg tablet 20 mg PO TID 05/13/13 05/26/24 His tory gabapentin 100 mg capsule 100 mg PO BIDCM 05/13/13 05/26/24 History loratadine 10 mg tablet 10 mg PO DAILY PRN Allergies 05/1305/26/24 History quetiapine 50 mg tablet 50 mg PO BID 11/22/17 05/26/24 His tory solifenacin 10 mg tablet (Vesicare) 10 mg PO QDAY 11/22/17 05/26/24 History bisacodyl 5 mg tablet,delayed 20 mg (4 x 5 mg) PO ONCE #4 tabs 0 11/26/17 05/26/24 Rx release (Dulcolax (bisacodyl)) polyethylene glycol 3350 17 See Rx Instructions PO .COMPLEX 05/26/24 Rx gram/dose oral powder (Miralax) #238 grams doxycycline monohydrate 100 mg 100 mg PO BID #20 caps 05/26/24 Rx capsule tobramycin 0.3 % eye drops 1 drp ophthalmic (eye) Q2H #5 mL 0 05/26/24 05/26/24 Rx Have you fallen in the past year?: No Nurse's Note: Patient here for right eye concern began today. [facility] Medical History (Updated 05/26/24 @ 15:42 by Garth FRANCIS, PA) Cellulitis of right eyelid Conjunctivitis, right eye MRSA (methicillin resistant staph aureus) culture positive Tobacco use Fatigue Hyperlipidemia OAB (overactive bladder) SYED (generalized anxiety disorder) Intellectual disability Social History Smoking Status: Current every day smoker tobacco type: cigarettes alcohol intake: never substance use type: does not use HPI HPI Details: RENNY RUSSO, is a 74 M who presents to the office today for initial evaluation new onset right eye conjunctival injection with exudate appreciated this morning upon awakening. 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 [employer] Blind Worker also states the patient has has chronic erythema circumferential to the right eye since February 2024, stating dermatology thinks it is likely a psoriasis or atopic dermatitis process for which she is on chronic corticosteroids. No complaints of fever, chills, sweats. MRDD patient under the care of the heat and frost insulator helper who accompanies patient today. No other complaints at this time. ROS Const Constitutional: No other (As above) Exam Const General: cooperative, healthy appearing and no acute distress Nutritional Appearance: average body habitus Orientation: alert and awake HENIL Head: normal to inspection Ears: hearing grossly normal bilaterally and external ears normal Nose: external nose normal Eyes General: appearance normal, both eyes and all related structures (Except OD conjunctival injection with exudate; negative limbus OD) Other: OD circumocular erythema throughout upper and lower eyelids as well as right cheek of approximately 3 cm x 6 cm diameter Neck Neck: normal visual inspection and no meningeal signs Resp Effort Inspection: normal respiratory effort and able to speak in complete sentences Cardio Rate: regular rate Pulses: radial pulses present Skin General: no rashes or lesions noted Neuro General: patient alert and patient awake Cognition: normal cognition Speech: speech normal Psych Appearance: grossly normal Mental Status: mental status grossly normal Mood: congruent mood Affect: normal affect Speech and Movement: speech and movement normal Attitude: cooperative Coding Level of Care Code Off vis,new,level 3 Diagnoses Conjunctivitis, right eye H10.9 Cellulitis of right eyelid H00.033 Assessment and Plan Assessment and Plan (1) Conjunctivitis, right eye: Status: Acute (2) Cellulitis of right eyelid: Status: Acute Plan: - vs psoriasis versus atopic dermatitis Tobrex ophthalmic drops as prescribed today. Doxycycline as prescribed today. Eye hygiene care as instructed today. No work until 06/01/2024. Follow-up with PCP or ophthalmology in 2 to 3 days should symptoms not improve, sooner glenna (more content not included)... Normal [facility] Basic Metabolic Profile (BMP )on 04-22-2024 BUN/CRE 18.8 RATIO Normal 10-20 [facility] Comment on above: Performed By: #### L 100.0100, L500.2500 #### [facility] [address] [place], [address] CA,Total 8.4 mg/dL Low 8.5-10.1 [facility] Comment on above: Performed By: #### L 100.0100, L500.2500 #### [facility] [address] [place], [address] Chloride [Moles/Vol] 109 mmol/L High 98-107 [facility] Comment on above: Performed By: #### L 100.0100, L500.2500 #### [facility] [address] [place], [address] CO2 [Moles/Vol] 27.0 mmol/L Normal 21.0-32.0 [facility] Comment on above: Performed By: #### L 100.0100, L500.2500 #### [facility] [address] [place], [address] Creatinine [Mass/Vol] 0.90 mg/dL Normal 0.70-1.30 [facility] Comment on above: Result Comment: The validity of the calculated GFR GFRAA in patients over 70 years has not been determined. Clinical correlation is essential. Performed By: #### L 100.0100, L500.2500 #### [facility] [address] [place], [address] ECRCL 78.63 ml/min Normal [facility] Comment on above: Performed By: #### L 100.0100, L500.2500 #### [facility] [address] [place], [address] EST GFR - AA 105 mL/min Normal >60 [facility] Comment on above: Result Comment: Afri can Serbian GFR Calc Performed By: #### L 100.0100, L500.2500 #### [facility] [address] [place], [address] GAP 5 Normal 5-15 [facility] Comment on above: Performed By: #### L 100.0100, L500.2500 #### [facility] [address] [place], [address] GFR/1.73 sq M.predicted among non-blacks MDRD (S/P/Bld) [Vol rate/Area] 87 mL/min/{1.73_m2} Normal >60 [facility] Comment on above: Result Comment: Non- GFR Calc Performed By: #### L 100.0100, L500.2500 #### [facility] [address] [place], [address] Glucose [Mass/Vol] 129 mg/dL High 74-106 [facility] Comment on above: Result Comment: Fast ing Glucose result greater than or equal to 126 mg/dL suggests DIABETES MELLITUS per A.D.A. criteria. Performed By: #### L 100.0100, L500.2500 #### [facility] [address] [place], [address] Potassium [Moles/Vol] 4.1 mmol/L Normal 3.5-5.1 [facility] Comment on above: Performed By: #### L 100.0100, L500.2500 #### [facility] [address] [place], [address] Sodium [Moles/Vol] 140 mmol/L Normal 136-145 [facility] Comment on above: Performed By: #### L 100.0100, L500.2500 #### [facility] [address] [place], [address] Urea nitrogen [Mass/Vol] 17 mg/dL Normal 7-18 [facility] Comment on above: Performed By: #### L 100.0100, L500.2500 #### [facility] [address] [place], [address] CBC W/Diff, Automatedon 01-0 8-2024 Absolute Lymph 1.80 X10 3/uL Normal 0.83-4.51 [facility] Comment on above: Performed By: #### L 100.0100, L500.2500 #### [facility] [address] [place], [address] Absolute Neut 4.6 X10 3/uL Normal 2.0-7.7 [facility] Comment on above: Performed By: #### L 100.0100, L500.2500 #### [facility] [address] [place], [address] Basophils/100 WBC (Bld) 1.1 % High 0-1 [facility] Comment on above: Performed By: #### L 100.0100, L500.2500 #### [facility] [address] [place], [address] Eosinophils/100 WBC (Bld) 6.9 % High 0-5 [facility] Comment on above: Performed By: #### L 100.0100, L500.2500 #### [facility] [address] [place], [address] Erythrocyte distribution width (RBC) [Ratio] 13.2 % Normal 11.6-14.6 [facility] Comment on above: Performed By: #### L 100.0100, L500.2500 #### [facility] [address] [place], [address] Hematocrit (Bld) [Volume fraction] 40.6 % Normal 40-54 [facility] Comment on above: Performed By: #### L 100.0100, L500.2500 #### [facility] [address] [place], [address] Hemoglobin (Bld) [Mass/Vol] 13.9 g/dL Normal 13.0-16.5 [facility] Comment on above: Performed By: #### L 100.0100, L500.2500 #### [facility] [address] [place], [address] IG% 0.300 Normal 0.0-0.9 [facility] Comment on above: Result Comment: IG% - Immature Granulocytes (promyelocytes, myelocytes and metamyelocytes) > 1% indicates that a LEFT SHIFT is Present. Performed By: #### L 100.0100, L500.2500 #### [facility] [address] [place], [address] Lymphocytes/100 WBC (Bld) 23.9 % Normal 19-41 [facility] Comment on above: Performed By: #### L 100.0100, L500.2500 #### [facility] [address] [place], [address] MCH (RBC) [Entitic mass] 32.6 pg High 27.0-32.0 [facility] Comment on above: Performed By: #### L 100.0100, L500.2500 #### [facility] [address] [place], [address] MCHC (RBC) [Mass/Vol] 34.2 g/dL Normal 32-36 [facility] Comment on above: Performed By: #### L 100.0100, L500.2500 #### [facility] [address] [place], [address] MCV (RBC) [Entitic vol] 95.3 fL High 80-94 [facility] Comment on above: Performed By: #### L 100.0100, L500.2500 #### [facility] [address] [place], [address] Monocytes/100 WBC (Bld) 6.8 % Normal 0-10 [facility] Comment on above: Performed By: #### L 100.0100, L500.2500 #### [facility] [address] [place], [address] Neutrophils/100 WBC (Bld) 61.0 % Normal 47-70 [facility] Comment on above: Performed By: #### L 100.0100, L500.2500 #### [facility] [address] [place], [address] Nucleated RBC (Bld) [#/Vol] 0 10*3/uL Normal 0-5 [facility] Comment on above: Performed By: #### L 100.0100, L500.2500 #### [facility] [address] [place], [address] Platelet mean volume (Bld) [Entitic vol] 9.4 fL Normal 6.2-12.0 [facility] Comment on above: Performed By: #### L 100.0100, L500.2500 #### [facility] [address] [place], [address] Platelets (Bld) [#/Vol] 244 10*3/uL Normal 150-450 [facility] Comment on above: Performed By: #### L 100.0100, L500.2500 #### [facility] [address] [place], [address] RBC (Bld) [#/Vol] 4.26 10*6/uL Low 4.6-6.2 [facility] Comment on above: Performed By: #### L 100.0100, L500.2500 #### [facility] [address] [place], [address] RDW SD 45.5 fl High 35.1-43.9 [facility] Comment on above: Performed By: #### L 100.0100, L500.2500 #### [facility] [address] [place], [address] WBC (Bld) [#/Vol] 7.5 10*3/uL Normal 4.4-11.0 [facility] Comment on above: Performed By: #### L 100.0100, L500.2500 #### [facility] [address] [place], [address] Emergency Department Summary on 04-22-2024 Emergency Department Summary [facility] [address] [address] Emergency Department Summary 04/22/24 MR#: [id number] Acct: [id number] Name: RENNY RUSSO Rep #: [id number] : 1950 74 From: Jorje Alberto MD PCP: Dr. Kim Hutchinson MD Status:REG ER Location: ED ADDENDUM by Dr. Jorje Alberto MD on 04/22/24 at 1721 I spoke with infectious disease. Both of them and IR comfortable the patient being discharged home with outpatient follow-up with both ID and dermatology. I spoke to the patient and the group care worker. They understand that this does not need an admission. They are frustrated by the length of time he has been dealing with that but I explained him he just needs to see these other physicians. Inpatient admission and IV antibiotics at this time would not make any significant difference. 04/22/24 1721 Cosigner Signature (if applicable): cc: Dr. Kim Hutchinson MD * Signed HPI History of Present Illness Chief Complaint: Wound Informant: patient and other (long-term staff member.) Onset/Context/Timing Onset: Month(s) Context: Gradual Onset Timing: Continuous Current Severity: Mild Maximum Severity: Mild Narrative Narrative: 74-year-old male history of MRSA, anxiety and diabetes. Patient lives in a half-way. He has had sores on his upper and lower extremities for 2 months. He has been on different courses of antibiotics. Currently he is on both doxycycline and Keflex. Has had a history of MRSA. Basically this has not been getting better. The half-way wanted him further evaluated. He was at another ER recently and was discharged home. Patient's not been ill. He has not had a fever. He has also been evaluated by ophthalmology multiple times due to redness below his right eye. He has been on antibiotics and ointments for that that is also not improving Prior similar symptoms: Yes Recent Illness/Hospitalization : No PFSH PFSH Medical History MRSA (methicillin resistant staph aureus) culture positive Tobacco use Fatigue Hyperlipidemia OAB (overactive bladder) SYED (generalized anxiety disorder) Intellectual disability Home Medications ???Medication ???Instructions ???Recorded ???Last Taken ???Type buspirone 10 mg tablet 20 mg PO TID 01/29/14 Unknown History gabapentin 100 mg capsule 100 mg PO BIDCM 05/13/13 Unknown History loratadine 10 mg tablet 10 mg PO DAILY PRN Allergies 05/13/13 Unknown History quetiapine 50 mg tablet 50 mg PO BID 11/22/17 Unknown History solifenacin 10 mg tablet (Vesicare) 10 mg PO QDAY 11/22/17 Unknown History bisacodyl 5 mg tablet,delayed 20 mg (4 x 5 mg) PO ONCE #4 tabs 11/26/17 Unknown Rx release (Dulcolax (bisacodyl)) polyethylene glycol 3350 17 See Rx Instructions PO .COMPLEX 11/26/17 Unknown Rx gram/dose oral powder (Miralax) #238 grams Allergy/AdvReac Type Severity Reaction Status Date / Time No Known Allergies Allergy Verified 04/22/24 14:09 Social History Smoking Status: Current every day smoker tobacco type: cigarettes alcohol intake: never substance use type: does not use ROS ROS ED ROS Narrative No recent illness. No vomiting or diarrhea no fever. Constitutional Constitutional ED: Denies chills or fever(s) Eyes Eyes: Denies blurry vision ENT ENT ED: Denies ear pain Cardiovascular Cardiovascular: Denies chest pain Respiratory/Chest Respiratory/Chest: Denies cough or dyspnea Gastrointestinal Gastrointestinal: Denies abdominal pain, diarrhea, nausea or vomiting Genitourinary Genitourinary ED: Denies dysuria or hematuria Musculoskeletal Musculoskeletal: Denies arthralgias Integumentary Reports rash; Denies abscess or Abrasions Neurologic Neurologic: Denies headache(s) Psychiatric Psychiatric: Denies anxiety Endocrine Endocrinology: Denies cold intolerance Hematologic/Lymphatic Hematologic/Lymphatic: Reports none Allergic/Immunologic Allergic/Immunologic ED: Denies mouth swelling, tongue swelling or urticaria EXAM Physical Exam Narrative Exam Narrative: Well-appearing 74-year-old male. Vital signs stable afebrile. He is in no acute distress. H EENT exam pupils round reactive light. Extra motions are intact. Poor dentition. Moist mucous membranes. Below his right eye he has redness on his face it has been chronic. It looks like this could be irritated skin versus a cellulitis. His XR motions are intact. There is no proptosis. There is no orbital cellulitis. He has no pain with extraocular motions of his eyes. Neck is nontender no lymphadenopathy. Lungs clear to auscultation bilaterally. Heart regular rhythm rate about 90 no murmur. Chest wall ribs nontender. Moving all 4 extremities. Nontender no edema. Sarai (more content not included)... Normal [facility] .Auto Diffon 2024 Basophil, Absolute 0.2 10 3/mcL Normal 0.0-0.2 [facility] Comment on above: Performed By: #### C BC, ADIFF, ANEU, CMP, GFR, [id number], [id number] #### [address] [address] #### HBSAG, HBSAB, HCV1 #### [address] [address] Basophils/100 WBC (Bld) 1.3 % Normal 0.0-2.5 [facility] Comment on above: Performed By: #### C BC, ADIFF, ANEU, CMP, GFR, [id number], [id number] #### [place] [address] #### HBSAG, HBSAB, HCV1 #### [address] [address] Eosinophil, Absolute 0.6 10 3/mcL Normal 0.0-0.7 [facility] Comment on above: Performed By: #### C BC, ADIFF, ANEU, CMP, GFR, 661918, [id number] #### [address] [address] #### HBSAG, HBSAB, HCV1 #### [address] [address] Eosinophils/100 WBC (Bld) 4.9 % Normal 0.0-7.0 [facility] Comment on above: Performed By: #### C BC, ADIFF, ANEU, CMP, GFR, 412689, [id number] #### [address] [address] #### HBSAG, HBSAB, HCV1 #### [address] [address] Lymphocyte, Absolute 2.5 10 3/mcL Normal 0.9-4.3 [facility] Comment on above: Performed By: #### C BC, ADIFF, ANEU, CMP, GFR, 325559, [id number] #### [address] [address] #### HBSAG, HBSAB, HCV1 #### [address] [address] Lymphocytes/100 WBC (Bld) 21.7 % Normal 20.0-40.0 [facility] Comment on above: Performed By: #### C BC, ADIFF, ANEU, CMP, GFR, 033098, 348781 #### [place] [address] #### HBSAG, HBSAB, HCV1 #### [address] [address] Monocyte, Absolute 0.6 10 3/mcL Normal 0.1-1.4 [facility] Comment on above: Performed By: #### C BC, ADIFF, ANEU, CMP, GFR, 015550, 579754 #### [place] [address] #### HBSAG, HBSAB, HCV1 #### [address] [address] Monocytes/100 WBC (Bld) 5.1 % Normal 2.0-13.0 [facility] Comment on above: Performed By: #### C BC, ADIFF, ANEU, CMP, GFR, [id number], [id number] #### [address] [address] #### HBSAG, HBSAB, HCV1 #### [address] [address] Neutrophils/100 WBC (Bld) 67.0 % Normal 50.0-75.0 [facility] Comment on above: Performed By: #### C BC, ADIFF, ANEU, CMP, GFR, [id number], [id number] #### [place] [address] #### HBSAG, HBSAB, HCV1 #### [address] [address] .GFRon 2024 GFR 90 ml/min/1.73sqm [facility] Comment on above: Result Comment: GFR Population mean for , Non- Americans Ages 20-29 = 116 mL/min/1.73 sq.m. Ages 30-39 = 107 mL/min/1.73 sq.m. Ages 40-49 = 99 mL/min/1.73 sq.m. Ages 50-59 = 93 mL/min/1.73 sq.m. Ages 60-69 = 85 mL/min/1.73 sq.m. Ages 70+ = 75 mL/min/1.73 sq.m. Chronic Kidney Disease: Less than 60 mL/min/1.73 square meters End Stage Renal Disease: Less than 15 mL/min/1.73 square meters Performed By: #### C BC, CHARLENE, ANEU, CMP, GFR, [id number], [id number] #### [address] [address] #### HBSAG, HBSAB, HCV1 #### [place] [id number] GFR Non- 74 ml/min/1.73sqm [facility] Comment on above: Result Comment: GFR Population mean for , Non- Americans Ages 20-29 = 116 mL/min/1.73 sq.m. Ages 30-39 = 107 mL/min/1.73 sq.m. Ages 40-49 = 99 mL/min/1.73 sq.m. Ages 50-59 = 93 mL/min/1.73 sq.m. Ages 60-69 = 85 mL/min/1.73 sq.m. Ages 70+ = 75 mL/min/1.73 sq.m. Chronic Kidney Disease: Less than 60 mL/min/1.73 square meters End Stage Renal Disease: Less than 15 mL/min/1.73 square meters Performed By: #### C BC, ADIFF, ANEU, CMP, GFR, 454812, [id number] #### [address] [address] #### HBSAG, HBSAB, HCV1 #### [place] [address] .MDWon 2024 Monocyte Distribution Width 16.33 Normal 0.00-20.00 [facility] Comment on above: Result Comment: For ED adult patients suspected of sepsis, MDW<=20.0 does not rule out sepsis or risk of sepsis Performed By: #### C BC, ADIFF, ANEU, CMP, GFR, 869335, [id number] #### [place] [address] #### HBSAG, HBSAB, HCV1 #### [place] [address] .NEUABSon 2024 Neutrophil, Absolute 7.6 10 3/mcL Normal 2.3-8.1 [facility] Comment on above: Performed By: #### C BC, ADIFF, ANEU, CMP, GFR, 645953, 402832 #### [place] [address] #### HBSAG, HBSAB, HCV1 #### [place] [address] BMPon 2024 BUN/Creatinine Ratio 22 ratio Normal 7-27 [facility] Comment on above: Performed By: #### C BC, ADIFF, ANEU, CMP, GFR, 660422, 065357 #### [place] [address] #### HBSAG, HBSAB, HCV1 #### [place] [address] Calcium [Mass/Vol] 9.3 mg/dL Normal 8.4-10.2 [facility] Comment on above: Performed By: #### C BC, ADIFF, ANEU, CMP, GFR, 387287, 522285 #### [place] [address] #### HBSAG, HBSAB, HCV1 #### [place] [address] Chloride [Moles/Vol] 103 mmol/L Normal 98-107 [facility] Comment on above: Performed By: #### C BC, ADIFF, ANEU, CMP, GFR, 817433, [id number] #### [address] [address] #### HBSAG, HBSAB, HCV1 #### [address] [address] CO2 [Moles/Vol] 29 mmol/L Normal 23-31 [facility] Comment on above: Performed By: #### C BC, ADIFF, ANEU, CMP, GFR, 533428, 858530 #### [place] [address] #### HBSAG, HBSAB, HCV1 #### [address] [address] Electrolyte Balance 9.0 mEq/L Normal 4.0-15.0 [facility] Comment on above: Performed By: #### C BC, ADIFF, ANEU, CMP, GFR, 660422, [id number] #### [address] [address] #### HBSAG, HBSAB, HCV1 #### [address] [address] Glucose [Mass/Vol] 84 mg/dL Normal 83-110 [facility] Comment on above: Performed By: #### C BC, ADIFF, ANEU, CMP, GFR, 660422, [id number] #### [address] [address] #### HBSAG, HBSAB, HCV1 #### [address] [address] Potassium [Moles/Vol] 4.1 mmol/L Normal 3.5-5.1 [facility] Comment on above: Performed By: #### C BC, ADIFF, ANEU, CMP, GFR, 660422, [id number] #### [place] [address] #### HBSAG, HBSAB, HCV1 #### [address] [address] Sodium [Moles/Vol] 141 mmol/L Normal 136-145 [facility] Comment on above: Performed By: #### C BC, ADIFF, ANEU, CMP, GFR, 660422, 176721 #### [address] [address] #### HBSAG, HBSAB, HCV1 #### [address] [address] Urea nitrogen [Mass/Vol] 22 mg/dL High 7-18 [facility] Comment on above: Performed By: #### C BC, ADIFF, ANEU, CMP, GFR, 660422, 002638 #### [address] [address] #### HBSAG, HBSAB, HCV1 #### [address] [address] Creatinine [Mass/Vol] 0.99 mg/dL Normal 0.70-1.30 [facility] Comment on above: Result Comment: Test ing performed on Siemens Dimension EXL analyzer using a modified kinetic Colleen technique. Performed By: #### C BC, ADIFF, ANEU, CMP, GFR, 660422, 407002 #### [address] [address] #### HBSAG, HBSAB, HCV1 #### [address] [address] CBCon 2024 Erythrocyte distribution width (RBC) [Ratio] 13.7 % Normal 11.5-15.5 [facility] Comment on above: Performed By: #### C BC, ADIFF, ANEU, CMP, GFR, 660422, 251493 #### [address] [address] #### HBSAG, HBSAB, HCV1 #### [address] [address] Hematocrit (Bld) [Volume fraction] 44.3 % Normal 40.0-52.0 [facility] Comment on above: Performed By: #### C BC, ADIFF, ANEU, CMP, GFR, 660422, 842634 #### [address] [address] #### HBSAG, HBSAB, HCV1 #### [address] [address] Hgb 15.2 G/dL Normal 13.0-17.5 [facility] Comment on above: Performed By: #### C BC, ADIFF, ANEU, CMP, GFR, 660422, 572195 #### [address] [address] #### HBSAG, HBSAB, HCV1 #### [address] [address] MCH (RBC) [Entitic mass] 32.3 pg Normal 27.0-33.0 [facility] Comment on above: Performed By: #### C BC, ADIFF, ANEU, CMP, GFR, 660422, 964260 #### [place] [address] #### HBSAG, HBSAB, HCV1 #### [place] [address] MCHC 34.2 G/dL Normal 32.0-36.0 [facility] Comment on above: Performed By: #### C BC, ADIFF, ANEU, CMP, GFR, 660422, 609691 #### [place] [address] #### HBSAG, HBSAB, HCV1 #### [address] [address] MCV (RBC) [Entitic vol] 94.4 fL Normal 81.0-100.0 [facility] Comment on above: Performed By: #### C BC, ADIFF, ANEU, CMP, GFR, 660422, 048198 #### [address] [address] #### HBSAG, HBSAB, HCV1 #### [address] [address] Platelet 286 10 3/mcL Normal 150-450 [facility] Comment on above: Performed By: #### C BC, ADIFF, ANEU, CMP, GFR, 676752, 417907 #### [address] [address] #### HBSAG, HBSAB, HCV1 #### [place] [address] Platelet mean volume (Bld) [Entitic vol] 7.1 fL Normal 6.4-10.5 [facility] Comment on above: Performed By: #### C BC, ADIFF, ANEU, CMP, GFR, 078815, 240783 #### [place] [address] #### HBSAG, HBSAB, HCV1 #### [place] [address] RBC 4.69 10 6/mcL Normal 4.50-6.00 [facility] Comment on above: Performed By: #### C BC, ADIFF, ANEU, CMP, GFR, 910346, 235606 #### [place] [address] #### HBSAG, HBSAB, HCV1 #### [place] [address] WBC 11.3 10 3/mcL High 4.5-10.8 [facility] Comment on above: Performed By: #### C BC, ADIFF, ANEU, CMP, GFR, 272210, 229610 #### [place] [address] #### HBSAG, HBSAB, HCV1 #### [place] [address] CT ORBIT W/ CONTRASTon 04-20 CT ORBIT W/ CONTRAST ORIGINAL EXAMINATION: CT OF THE ORBIT WITH CONTRAST 2024 TECHNIQUE: CT of the orbits was performed with the administration of intravenous contrast. Multiplanar reformatted images are provided for review. Automated exposure control, iterative reconstruction, and/or weight based adjustment of the mA/kV was utilized to reduce the radiation dose to as low as reasonably achievable. COMPARISON: None. HISTORY: ORDERING SYSTEM PROVIDED HISTORY: Reason for Exam: Erythema, skin, estimation around the eye getting worse. Rule out orbital/periorbital cellulitis FINDINGS: ORBITS: The left optic globe, extraocular musculature, optic nerve-sheath complex is grossly normal morphology. There is decreased volume of the left intraorbital fat with an os the most. The right optic globe and extraocular musculature are grossly normal in morphology. There is mild diffuse enlargement of the right optic nerve-sheath complex and increased perineural CSF. SOFT TISSUES: There is mild right periorbital and right male are cellulitis without abscess formation. There is mild right anterior orbital preseptal cellulitis. There is no postseptal cellulitis or intraorbital abscess. There is a right parotid ovoid enhancing nodule measuring 1 x 0.6 cm possibly intraparotid node although a parotid mass such as adenoma not excluded. Attention to this finding on follow-up studies would be useful. BRAIN: The visualized portion of the intracranial contents demonstrate no acute process. Partially empty sella is noted. SINUSES: There is moderate mucosal thickening of bilateral maxillary sinuses. There is marked mucosal thickening of the left frontal and left ethmoid sinuses and mild osseous wall thickening which may be compatible with chronic sinusitis. 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 BONES: No acute osseous abnormality is seen. There are prominent sutures at bilateral maxillary sinus lateral samuels. IMPRESSION: 1. Mild right periorbital and right anterior orbital preseptal cellulitis without abscess formation. 2. Mild diffuse enlargement of the right optic nerve-sheath complex and increased perineural CSF. Partially empty sella is noted. Findings may be suggestive of idiopathic intracranial hypertension in appropriate clinical setting. 3. Right parotid ovoid enhancing nodule measuring 1 x 0.6 cm possibly intraparotid node although a parotid mass such as adenoma not excluded. Attention to this finding on follow-up studies would be useful. 4. 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 5. Moderate mucosal thickening of bilateral maxillary sinuses. Marked mucosal thickening of the left frontal and left ethmoid sinuses and mild osseous wall thickening which may be compatible with chronic sinusitis. Interpreted by: [place] Preliminary Report By: [place] Electronically signed By [place] Dictated Date: 2024 8:17:39 PM Prelim Date: 2024 8:37:58 PM Sign Date: 2024 8:37:58 PM Ordering Provider: BRADLEY Jules [facility] LABORATORYOrdered By: SYSTEM SYSTEM on 2024 Basophils (Bld) [#/Vol] 0.2 103/mcL Normal 0.0 - 0.2 10^3/mcL AO Workflow SS Basophils/100 WBC (Bld) 1.3 % Normal 0.0 - 2.5 % AO Workflow SS Calcium [Mass/Vol] 9.3 mg/dL Normal 8.4 - 10. 2 mg/dL AO ADM SS Chloride [Moles/Vol] 103 mmol/L Normal 98 - 10 7 mmol/L AO ADM SS CO2 [Moles/Vol] 29 mmol/L Normal 23 - 31 mmol/L AO ADM SS Creatinine [Mass/Vol] 0.99 mg/dL Normal 0.70 - 1.30 mg/dL AO ADM SS Comment on above: Interpretive Data: T esting performed on Siemens Dimension EXL analyzer using a modified kinetic Colleen technique. Electrolyte Balance 9.0 mEq/L Normal 4.0 - 15 .0 mEq/L AO ADM SS Eosinophil, Absolute 0.6 103/mcL Normal 0.0 - 0 .7 10^3/mcL AO Workflow SS Eosinophils/100 WBC (Bld) 4.9 % Normal 0.0 - 7.0 % AO Workflow SS Erythrocyte distribution width (RBC) [Ratio] 13.7 % Normal 11.5 - 15.5 % AO Workflow SS GFR/1.73 sq M.predicted among blacks MDRD (S/P/Bld) [Vol rate/Area] 90 ml/min/1.73sqm Invalid Interpretation Code AO Chemistry S Comment on above: Interpretive Data: GFR Population mean for , Non- Americans Ages 20-29 = 116 mL/min/1.73 sq.m. Ages 30-39 = 107 mL/min/1.73 sq.m. Ages 40-49 = 99 mL/min/1.73 sq.m. Ages 50-59 = 93 mL/min/1.73 sq.m. Ages 60-69 = 85 mL/min/1.73 sq.m. Ages 70+ = 75 mL/min/1.73 sq.m. Chronic Kidney Disease: Less than 60 mL/min/1.73 square meters End Stage Renal Disease: Less than 15 mL/min/1.73 square meters GFR/1.73 sq M.predicted among non-blacks MDRD (S/P/Bld) [Vol rate/Area] 74 ml/min/1.73sqm Invalid Interpretation Code AO Chemistry S Comment on above: Interpretive Data: GFR Population mean for , Non- Americans Ages 20-29 = 116 mL/min/1.73 sq.m. Ages 30-39 = 107 mL/min/1.73 sq.m. Ages 40-49 = 99 mL/min/1.73 sq.m. Ages 50-59 = 93 mL/min/1.73 sq.m. Ages 60-69 = 85 mL/min/1.73 sq.m. Ages 70+ = 75 mL/min/1.73 sq.m. Chronic Kidney Disease: Less than 60 mL/min/1.73 square meters End Stage Renal Disease: Less than 15 mL/min/1.73 square meters Glucose [Mass/Vol] 84 mg/dL Normal 83 - 110 mg/dL AO ADM SS Hematocrit (Bld) [Volume fraction] 44.3 % Normal 40.0 - 52.0 % AO Workflow SS Hemoglobin (Bld) [Mass/Vol] 15.2 G/dL Normal 13.0 - 17.5 G/dL AO Workflow SS Lymphocytes (Bld) [#/Vol] 2.5 103/mcL Normal 0.9 - 4.3 10^3/mcL AO Workflow SS Lymphocytes/100 WBC (Bld) 21.7 % Normal 20.0 - 40.0 % AO Workflow SS MCH (RBC) [Entitic mass] 32.3 pg Normal 27.0 - 33.0 pg AO Workflow SS MCHC 34.2 G/dL Normal 32.0 - 36.0 G/dL AO Workflow SS MCV (RBC) [Entitic vol] 94.4 fL Normal 81.0 - 100.0 fL AO Workflow SS Monocyte distribution width Auto (Bld) [Entitic vol] 16.33 1 Normal 0.00 - 20.00 AO Workflow SS Comment on above: Result Comment: For ED adult patients suspected of sepsis, MDW<=20.0 does not rule out sepsis or risk of sepsis Monocytes (Bld) [#/Vol] 0.6 103/mcL Normal 0.1 - 1.4 10^3/mcL AO Workflow SS Monocytes/100 WBC (Bld) 5.1 % Normal 2.0 - 13.0 % AO Workflow SS Neutrophils (Bld) [#/Vol] 7.6 103/mcL Normal 2.3 - 8.1 10^3/mcL AO Workflow SS Neutrophils/100 WBC (Bld) 67.0 % Normal 50.0 - 75.0 % AO Workflow SS Platelet mean volume (Bld) [Entitic vol] 7.1 fL Normal 6.4 - 10.5 fL AO Workflow SS Platelets (Bld) [#/Vol] 286 103/mcL Normal 150 - 450 10^3/mcL AO Workflow SS Potassium [Moles/Vol] 4.1 mmol/L Normal 3.5 - 5.1 mmol/L AO ADM SS RBC (Bld) [#/Vol] 4.69 106/mcL Normal 4.50 - 6.0 0 10^6/mcL AO Workflow SS Sodium [Moles/Vol] 141 mmol/L Normal 136 - 145 mmol/L AO ADM SS Urea nitrogen [Mass/Vol] 22 mg/dL High 7 - 18 mg/dL AO ADM SS Urea nitrogen/Creatinine [Mass ratio] 22 ratio Normal 7 - 27 ratio AO ADM SS WBC (Bld) [#/Vol] 11.3 103/mcL High 4.5 - 10.8 10^3/mcL AO Workflow SS Wound Cultureon 04-03-2024 Copy of report sent to Infection Control Printer [id number] 04/03/24 0731 BLUCAS. Meth. resistant Staph. aureus Amount Growth 1+ mecA Testing not performed Meth. resistant Staph. aureus: REACTION cefOXitin Susc Islt POS Doxycycline Islt BRET <=0.5 Clindamycin Islt BRET 0.25 S Clindamycin.induced Susc Islt NEG Erythromycin Islt BRET >=8 R Gentamicin Islt BRET <=0.5 S Linezolid Islt BRET 2 S Moxifloxacin Islt BRET <=0.25 S Oxacillin Susc Islt R Tetracycline Islt BRET <=1 S TMP SMX Islt BRET <=10 S Vancomycin Islt BRET 1 S Normal [facility] Comment on above: Performed By: #### M 100.3000, M100.1999 #### [facility] [address] [place], [address] Gram Stainon 04-01-2024 GS Gram Stain No organisms seen No cells seen Normal [facility] Comment on above: Performed By: #### M 100.3000, M100.1999 #### [facility] [address] [place], [address] CNOVon 02-06-2024 CNOV Office Visit (UCWSTR ) RENNY RUSSO ([id number]) 1950 M Date Time Provider Department 02/06/24 11:15 AM JUMANA SOLIZ [facility] During your visit today, we recorded the following information about you: Respiration Weight 16/minute 77.1 kg Jumana Soliz APRN.CDL [employer] 02/06/2024 11:35 AM Signed CONJUNCTIVITIS GENERAL INFORMATION: Conjunctivitis is also known as pink eye. It is an irritation of the underside of the eyelid and the white part of the eye. Conjunctivitis can be caused by infection, chemical irritation, or allergy. If infectious, it is very contagious. INSTRUCTIONS: The doctor has prescribed antibiotic drops or ointment. Use them as prescribed. Do not touch the dropper to the eye. Throw out the medication after completing treatment. If the doctor only prescribed the medication to be placed in one eye, and the other eye starts to bother you with the same symptoms, you may treat it in the same fashion. To ease discomfort, apply a warm or cool clean washcloth to your eye several times a day for 10 to 20 minutes. Gently wipe away discharge from the eyes with tissues. Wash your hands often with soap and use paper towels to dry them. Do not share towels, washcloths, or pillows. This could spread infection. Do not use eye make-up until the infection has resolved. Keep contact lenses out of eyes until the irritation is gone. Discard any eye make-up which you may have contaminated before the infection was diagnosed, and any eye make-up older than one year. Children should not return to school or daycare until the eye is no longer pink. Do not drive or operate machinery if your vision is blurred. Wear sunglasses if your eyes are sensitive to the light. CONTACT YOUR DOCTOR IF YOU OR YOUR CHILD NOTICE: *The eye is still pink 3 days after starting treatment with medicine. *Pain in the eye increases. *The redness is spreading. *Vision becomes blurred. *You have a temperature over 100.5 F (38 C). Jumana Soliz APRN.CDL [employer] 02/06/2024 12:10 PM Signed Subjective HPI HPI Renny Russo is a 73 year old male who presents today for CC of right eye redness/drainage. This started few days ago. Has tried nothing for relief. Symptoms are worsened by nothing. Risk factors staff reports patient constantly touching eyes. Patient poor historian, info comes from caregiver. .Patient presents with: Eye Problem: JENNA eye redness PAST MEDICAL HISTORY Diagnosis Date Acute gastritis without mention of hemorrhage Cataracts, bilateral Depression Diarrhea Duodenitis without mention of hemorrhage Generalized anxiety disorder Unspecified intellectual disabilities PAST SURGICAL HISTORY Procedure Laterality Date COLONOSCOPY FLX DX W/COLLJ SPEC WHEN PFRMD 12/04/2007 normal EGD TRANSORAL BIOPSY SINGLE/MULTIPLE 12/04/2007 moderate gastritis ALLERGIES Patient has no known allergies. MEDICATIONS ELIQUIS 5 mg tab(s) Take 1 tablet by mouth two times a day. DEXCOM G7 SENSOR luis angel USE DAILY, CHANGE SENSOR EVERY 10 DAYS TRUE METRIX GLUCOSE TEST STRIP test strip 1 Strip four times daily. finasteride (PROSCAR) 5 mg tablet Take 5 mg by mouth once daily. BASAGLAR KWIKPEN U-100 INSULIN 100 unit/mL (3 mL) Inject 8 Units subcutaneously every morning. metFORMIN ER (GLUCOPHAGE XR) 500 mg 24 hr tablet Take 500 mg by mouth daily with breakfast. ONE DAILY FOR MEN 0.4-600 mg-mcg tab Take 1 tablet by mouth once daily. nystatin (MYCOSTATIN) cream Apply to affected area as needed (Apply to perineum AND scrotum twice daily.). BD GARRETT 2ND GEN PEN NEEDLE 32 gauge x tamsulosin (FLOMAX) 0.4 mg Take 0.4 mg by mouth once daily. donepezil (ARICEPT) 5 mg tablet Take 5 mg by mouth daily at bedtime. oxybutynin ER (DITROPAN XL) 10 mg 24 hr tablet Take 10 mg by mouth once daily. busPIRone (BUSPAR) 10 mg tablet Take 2 tablets by mouth three times a day. escitalopram oxalate (LEXAPRO) 20 mg tablet Take 20 mg by mouth once daily. gabapentin (NEURONTIN) 100 mg capsule Take 100 mg by mouth twice daily. LORATADINE 10 MG TAB Take one(1) tablet daily for allergy symptoms including sneezing, itchy, watery eyes, and congestion trimethoprim-polymyxin (POLYTRIM) 10,000 unit- 1 mg/mL ophthalmic solution Use 1 Drop in the right eye four times daily for 7 days. insulin aspart U-100 (NOVOLOG FLEXPEN U-100 INSULIN) 100 unit/mL (3 mL) Inject 4 Units subcutaneously three times a day before meals. (Patient not taking: Reported on 02/06/2024) oxybutynin ER (DITROPAN XL) 10 mg 24 hr tablet Take 10 mg by mouth once daily. (Patient not taking: Reported on 02/06/2024) zinc oxide (DESITIN DAILY DEFENSE TOPICAL) Apply to affected area. (Patient not taking: Reported on 02/06/2024) timolol/dorzolamide/lat anop/PF (HMUPJOW-TVAWCTGJUV-ILS ANOP,PF,) 0.5-2-0.005 % drop Use in eyes. (Patient not taking: Reported on 02/06/2024) QUEtia (more content not included)... Normal [facility] CBC W/Diff, Automatedon 10- Absolute Lymph 2.20 X10 3/uL Normal 0.83-4.51 [facility] Comment on above: Performed By: #### L 100.0100, L503.0105, L500.4050, L500.4100, L501.9520, L501.9910 #### [facility] [address] [place], [address] Absolute Neut 6.4 X10 3/uL Normal 2.0-7.7 [facility] Comment on above: Performed By: #### L 100.0100, L503.0105, L500.4050, L500.4100, L501.9520, L501.9910 #### [facility] [address] [place], [address] Basophils/100 WBC (Bld) 0.9 % Normal 0-1 [facility] Comment on above: Performed By: #### L 100.0100, L503.0105, L500.4050, L500.4100, L501.9520, L501.9910 #### [facility] [address] [place], [address] Eosinophils/100 WBC (Bld) 4.9 % Normal 0-5 [facility] Comment on above: Performed By: #### L 100.0100, L503.0105, L500.4050, L500.4100, L501.9520, L501.9910 #### [facility] [address] [place], [address] Erythrocyte distribution width (RBC) [Ratio] 13.5 % Normal 11.6-14.6 [facility] Comment on above: Performed By: #### L 100.0100, L503.0105, L500.4050, L500.4100, L501.9520, L501.9910 #### [facility] [address] [place], [address] Hematocrit (Bld) [Volume fraction] 41.5 % Normal 40-54 [facility] Comment on above: Performed By: #### L 100.0100, L503.0105, L500.4050, L500.4100, L501.9520, L501.9910 #### [facility] [address] [place], [address] Hemoglobin (Bld) [Mass/Vol] 13.7 g/dL Normal 13.0-16.5 [facility] Comment on above: Performed By: #### L 100.0100, L503.0105, L500.4050, L500.4100, L501.9520, L501.9910 #### [facility] [address] [place], [address] IG% 0.300 Normal 0.0-0.9 [facility] Comment on above: Result Comment: IG% - Immature Granulocytes (promyelocytes, myelocytes and metamyelocytes) > 1% indicates that a LEFT SHIFT is Present. Performed By: #### L 100.0100, L503.0105, L500.4050, L500.4100, L501.9520, L501.9910 #### [facility] [address] [place], [address] Lymphocytes/100 WBC (Bld) 22.3 % Normal 19-41 [facility] Comment on above: Performed By: #### L 100.0100, L503.0105, L500.4050, L500.4100, L501.9520, L501.9910 #### [facility] [address] [place], [address] MCH (RBC) [Entitic mass] 31.4 pg Normal 27.0-32.0 [facility] Comment on above: Performed By: #### L 100.0100, L503.0105, L500.4050, L500.4100, L501.9520, L501.9910 #### [facility] [address] [place], [address] MCHC (RBC) [Mass/Vol] 33.0 g/dL Normal 32-36 [facility] Comment on above: Performed By: #### L 100.0100, L503.0105, L500.4050, L500.4100, L501.9520, L501.9910 #### [facility] [address] [place], [address] MCV (RBC) [Entitic vol] 95.2 fL High 80-94 [facility] Comment on above: Performed By: #### L 100.0100, L503.0105, L500.4050, L500.4100, L501.9520, L501.9910 #### [facility] [address] [place], [address] Monocytes/100 WBC (Bld) 7.0 % Normal 0-10 [facility] Comment on above: Performed By: #### L 100.0100, L503.0105, L500.4050, L500.4100, L501.9520, L501.9910 #### [facility] [address] [place], [address] Neutrophils/100 WBC (Bld) 64.6 % Normal 47-70 [facility] Comment on above: Performed By: #### L 100.0100, L503.0105, L500.4050, L500.4100, L501.9520, L501.9910 #### [facility] [address] [place], [address] Nucleated RBC (Bld) [#/Vol] 0 10*3/uL Normal 0-5 [facility] Comment on above: Performed By: #### L 100.0100, L503.0105, L500.4050, L500.4100, L501.9520, L501.9910 #### [facility] [address] [place], [address] Platelet mean volume (Bld) [Entitic vol] 10.0 fL Normal 6.2-12.0 [facility] Comment on above: Performed By: #### L 100.0100, L503.0105, L500.4050, L500.4100, L501.9520, L501.9910 #### [facility] [address] [place], [address] Platelets (Bld) [#/Vol] 228 10*3/uL Normal 150-450 [facility] Comment on above: Performed By: #### L 100.0100, L503.0105, L500.4050, L500.4100, L501.9520, L501.9910 #### [facility] [address] [place], [address] RBC (Bld) [#/Vol] 4.36 10*6/uL Low 4.6-6.2 [facility] Comment on above: Performed By: #### L 100.0100, L503.0105, L500.4050, L500.4100, L501.9520, L501.9910 #### [facility] [address] [place], [address] RDW SD 46.7 fl High 35.1-43.9 [facility] Comment on above: Performed By: #### L 100.0100, L503.0105, L500.4050, L500.4100, L501.9520, L501.9910 #### [facility] [address] [place], [address] WBC (Bld) [#/Vol] 9.9 10*3/uL Normal 4.4-11.0 [facility] Comment on above: Performed By: #### L 100.0100, L503.0105, L500.4050, L500.4100, L501.9520, L501.9910 #### [facility] [address] [place], [address] Comprehensive Metabolic Prof ilon 01-23-2024 Albumin [Mass/Vol] 3.4 g/dL Normal 3.2-5.0 [facility] [place] Comment on above: Performed By: #### L 100.0100, L503.0105, L500.4050, L500.4100, L501.9520, L501.9910 #### [facility] [address] [place], [address] Albumin/Globulin [Mass ratio] 1.0 {ratio} Normal 0.9-2.4 [facility] Comment on above: Performed By: #### L 100.0100, L503.0105, L500.4050, L500.4100, L501.9520, L501.9910 #### [facility] [address] [place], [address] ALK P 71 U/L Normal 45-117 [facility] Comment on above: Performed By: #### L 100.0100, L503.0105, L500.4050, L500.4100, L501.9520, L501.9910 #### [facility] [address] [place], [address] ALT [Catalytic activity/Vol] 28 U/L Normal 16-61 [facility] Comment on above: Performed By: #### L 100.0100, L503.0105, L500.4050, L500.4100, L501.9520, L501.9910 #### [facility] [address] [place], [address] AST [Catalytic activity/Vol] 14 U/L Low 15-37 [facility] Comment on above: Performed By: #### L 100.0100, L503.0105, L500.4050, L500.4100, L501.9520, L501.9910 #### [facility] [address] [place], [address] Bilirubin [Mass/Vol] 0.50 mg/dL Normal 0.20-1.00 [facility] Comment on above: Result Comment: For patients on eltrombopag therapy, use of Dimension [place] TBIL is not recommended. Performed By: #### L 100.0100, L503.0105, L500.4050, L500.4100, L501.9520, L501.9910 #### [facility] [address] [place], [address] BUN/CRE 17.9 RATIO Normal 10-20 [facility] Comment on above: Performed By: #### L 100.0100, L503.0105, L500.4050, L500.4100, L501.9520, L501.9910 #### [facility] [address] [place], [address] CA,Total 8.8 mg/dL Normal 8.5-10.1 [facility] Comment on above: Performed By: #### L 100.0100, L503.0105, L500.4050, L500.4100, L501.9520, L501.9910 #### [facility] [address] [place], [address] Chloride [Moles/Vol] 109 mmol/L High 98-107 [facility] Comment on above: Performed By: #### L 100.0100, L503.0105, L500.4050, L500.4100, L501.9520, L501.9910 #### [facility] [address] [place], [address] CO2 [Moles/Vol] 24.0 mmol/L Normal 21.0-32.0 [facility] Comment on above: Performed By: #### L 100.0100, L503.0105, L500.4050, L500.4100, L501.9520, L501.9910 #### [facility] [address] [place], [address] Creatinine [Mass/Vol] 0.95 mg/dL Normal 0.70-1.30 [facility] Comment on above: Result Comment: The validity of the calculated GFR GFRAA in patients over 70 years has not been determined. Clinical correlation is essential. Performed By: #### L 100.0100, L503.0105, L500.4050, L500.4100, L501.9520, L501.9910 #### [facility] [address] [place], [address] EST GFR - AA 100 mL/min Normal >60 [facility] Comment on above: Result Comment: Afri can Serbian GFR Calc Performed By: #### L 100.0100, L503.0105, L500.4050, L500.4100, L501.9520, L501.9910 #### [facility] [address] [place], [address] GAP 7 Normal 5-15 [facility] Comment on above: Performed By: #### L 100.0100, L503.0105, L500.4050, L500.4100, L501.9520, L501.9910 #### [facility] [address] [place], [place], [id number] (843 GFR/1.73 sq M.predicted among non-blacks MDRD (S/P/Bld) [Vol rate/Area] 82 mL/min/{1.73_m2} Normal >60 [facility] Comment on above: Result Comment: Non- GFR Calc Performed By: #### L 100.0100, L503.0105, L500.4050, L500.4100, L501.9520, L501.9910 #### [facility] [address] [place], [address] Globulin (S) [Mass/Vol] 3.5 g/dL Normal 2.2-4.2 [facility] Comment on above: Performed By: #### L 100.0100, L503.0105, L500.4050, L500.4100, L501.9520, L501.9910 #### [facility] [address] [place], [address] Glucose [Mass/Vol] 76 mg/dL Normal 74-106 [facility] Comment on above: Performed By: #### L 100.0100, L503.0105, L500.4050, L500.4100, L501.9520, L501.9910 #### [facility] [address] [place], [address] Potassium [Moles/Vol] 4.0 mmol/L Normal 3.5-5.1 [facility] Comment on above: Performed By: #### L 100.0100, L503.0105, L500.4050, L500.4100, L501.9520, L501.9910 #### [facility] [address] [place], [address] Sodium [Moles/Vol] 140 mmol/L Normal 136-145 [facility] Comment on above: Performed By: #### L 100.0100, L503.0105, L500.4050, L500.4100, L501.9520, L501.9910 #### [facility] [address] [place], [address] T PROT 6.9 g/dL Normal 6.4-8.2 [facility] Comment on above: Performed By: #### L 100.0100, L503.0105, L500.4050, L500.4100, L501.9520, L501.9910 #### [facility] [address] [place], [address] Urea nitrogen [Mass/Vol] 17 mg/dL Normal 7-18 [facility] Comment on above: Performed By: #### L 100.0100, L503.0105, L500.4050, L500.4100, L501.9520, L501.9910 #### [facility] [address] [place], [address] Lipid Profileon 01-23-2024 Cholesterol [Mass/Vol] 136 mg/dL Normal 200 [facility] Comment on above: Result Comment: <200 mg/dL Desirable 200-240 mg/dL Borderline >240 mg/dL High Risk Performed By: #### L 100.0100, L503.0105, L500.4050, L500.4100, L501.9520, L501.9910 ####[facility] [address] [place], [address] Cholesterol in HDL [Mass/Vol] 44 mg/dL Normal [facility] Comment on above: Result Comment: The drugs N-Acetylcysteine and Metamizole may falsely depress this assay. Reference Range HDL <40 mg/dL Low HDL Cholesterol HDL >or= 60 mg/dL High HDL Cholesterol Performed By: #### L 100.0100, L503.0105, L500.4050, L500.4100, L501.9520, L501.9910 ####[facility] [address] [place], [address] Cholesterol in LDL [Mass/Vol] 66 mg/dL Normal 0-130 [facility] Comment on above: Performed By: #### L 100.0100, L503.0105, L500.4050, L500.4100, L501.9520, L501.9910 ####[facility] [address] [place], [address] Cholesterol in VLDL [Mass/Vol] 26 mg/dL Normal 5-40 [facility] Comment on above: Performed By: #### L 100.0100, L503.0105, L500.4050, L500.4100, L501.9520, L501.9910 ####[facility] [address] [place], [address] Triglyceride [Mass/Vol] 128 mg/dL Normal [facility] Comment on above: Result Comment: The drugs N-Acetylcysteine and Metamizole may falsely depress this assay. Serum Triglycerides Reference Interval Normal <150 mg/dL Borderline high 150 - 199 mg/dL High 200 - 499 mg/dL Very High > or = 500 mg/dL Performed By: #### L 100.0100, L503.0105, L500.4050, L500.4100, L501.9520, L501.9910 ####[facility] [address] [place], [address] PSA,Total - Annual Screenon 01-23-2024 PSA,TOT SCREEN 0.78 ng/mL Normal 0.00-4.00 [facility] Comment on above: Result Comment: This test was performed using the TPSA assay method for the Rainbow chemistry system. Values obtained with different assay methods cannot be used interchangably. When changing PSA assays in the course of monitoring a patient, additional sequential testing should be carried out to confirm baseline values. Performed By: #### L 100.0100, L503.0105, L500.4050, L500.4100, L501.9520, L501.9910 ####[facility] [address] [place], [address] Thyroid Stim Hormone (TSH)on 01-23-2024 TSH 2.330 uIU/mL Normal 0.358-3.740 [facility] Comment on above: Performed By: #### L 100.0100, L503.0105, L500.4050, L500.4100, L501.9520, L501.9910 ####[facility] [address] [place], [address] Vitamin B12on 01-23-2024 Cobalamin (Vitamin B12) [Mass/Vol] 591 pg/mL Normal 211-911 [facility] Comment on above: Performed By: #### L 100.0100, L503.0105, L500.4050, L500.4100, L501.9520, L501.9910 #### [facility] [address] [place], [address] ENDOon 11-20-2023 TTG Ab (IgA) <4.0 Normal <=3.9 [facility] ([place] Comment on above: Result Comment: Bria ctmikey 11/05/2022: Evaluation of Transglutaminase Ab (IgA) results: Negative: Less than 4.0 Weak positive: 4.0 to 10.0 Positive: Greater than 10.0 Transglutaminase Ab is present in approximately 95% to 100% of patients with celiac disease and 80% of patients with dermatitis herpetiformis. The antibody is rarely found in other conditions. Transglutaminase Ab levels will decrease or increase depending on the removal or reintroduction of gluten into the diet. Patients who are IgA deficient develop celiac disease more frequently than individuals who have an intact IgA system. Therefore, gliadin and transglutaminase IgA antibodies may be absent in patients with celiac disease. IgG antibodies to gliadin are especially helpful in IgA deficient patients. These test results were obtained with the [employer] QUANTA Lite R-tTG IgA LA NENA. R-tTG IgA values obtained with different manufacturers' assay methods may not be used interchangeably. Performed By: #### L IP, DIANA, REGINA, TROPHS, GFR, DIFF, MORPH, CBC #### [address] [address] [id number] 11-20-2023 SYED-65 8.3 units/ml High 0.0-5.0 [facility] [place] Comment on above: Result Comment: Perf ormed At: [facility] [address] [id number] Donovan Ramírez MD Ph:[phone] Performed By: #### L RUSSELL, DIANA, W, TROPHS, GFR, DIFF, MORPH, CBC #### [address] [address] GLIADon 11-20-2023 Gliadin Ab IgA <20 Normal <=19 [facility] ([place] Comment on above: Result Comment: Glia din IgG and IgA Ab Interpretation (effective 03/10/07): Result Units Negative <20 Weak Positive 20-30 Moderate to Strong Positive >30 Both IgG and IgA antibodies to gliadin are present in most patients with celiac disease (CD). However, antibody to gliadin may be present in Crohn's disease, dermatitis herpetiformis or in subjects with no clinical evidence of intestinal disease. In healthy individuals with a family history of CD, the antibodies may precede the clinical onset of disease in approximately 25% of the subjects. Gliadin antibody levels will decrease or increase depending on the removal or reintroduction of gluten into the diet. Patients who are IgA deficient develop celiac disease more frequently than individuals who have an intact IgA system. Therefore, gliadin and transglutaminase IgA antibodies may be absent in patients with celiac disease. IgG antibodies to gliadin are especially helpful in IgA deficient patients. A negative result indicates no gliadin antibody or levels below the negative cut-off of the assay. Results of this assay should be used in conjunction with clinical findings and other serological tests. These test results were obtained with the [employer] QUANTA Lite Gliadin IgG II and Gliadin IgA II. Gliadin values obtained with different manufacturers' assay methods may not be used interchangeably. Performed By: #### L IP, CMP, MDW, TROPHS, GFR, DIFF, MORPH, CBC #### [address] [address] Gliadin Ab IgG <20 Normal <=19 [facility] [place] Comment on above: Result Comment: Glia din IgG and IgA Ab Interpretation (effective 03/10/07): Result Units Negative <20 Weak Positive 20-30 Moderate to Strong Positive >30 Both IgG and IgA antibodies to gliadin are present in most patients with celiac disease (CD). However, antibody to gliadin may be present in Crohn's disease, dermatitis herpetiformis or in subjects with no clinical evidence of intestinal disease. In healthy individuals with a family history of CD, the antibodies may precede the clinical onset of disease in approximately 25% of the subjects. Gliadin antibody levels will decrease or increase depending on the removal or reintroduction of gluten into the diet. Patients who are IgA deficient develop celiac disease more frequently than individuals who have an intact IgA system. Therefore, gliadin and transglutaminase IgA antibodies may be absent in patients with celiac disease. IgG antibodies to gliadin are especially helpful in IgA deficient patients. A negative result indicates no gliadin antibody or levels below the negative cut-off of the assay. Results of this assay should be used in conjunction with clinical findings and other serological tests. These test results were obtained with the [employer] QUANTA Lite Gliadin IgG II and Gliadin IgA II. Gliadin values obtained with different manufacturers' assay methods may not be used interchangeably. Performed By: #### L IP, CMP, MDW, TROPHS, GFR, DIFF, MORPH, CBC #### [address] [address] ISLETon 11-20-2023 Panc Islet Cell Ab Negative Normal Neg:<1:1 [facility] ([place] Comment on above: Result Comment: Perf ormed At: [facility] [address] [id number] Donovan Ramírez MD Ph:[phone] Performed By: #### L IP, CMP, MDW, TROPHS, GFR, DIFF, MORPH, CBC #### [address] [address] .Auto Diffon 11-15-2023 Basophil, Absolute 0.1 10 3/mcL Normal 0.0-0.2 [facility] ([place]) Comment on above: Performed By: #### L IP, CMP, MDW, TROPHS, GFR, DIFF, MORPH, CBC #### [address] [address] Basophils/100 WBC (Bld) 1.0 % Normal 0.0-2.5 [facility] ([place]) Comment on above: Performed By: #### L IP, CMP, MDW, TROPHS, GFR, DIFF, MORPH, CBC #### [address] [address] Eosinophil, Absolute 0.5 10 3/mcL High 0.0-0.4 [facility] ([place] Comment on above: Performed By: #### L IP, CMP, MDW, TROPHS, GFR, DIFF, MORPH, CBC #### [address] [address] Eosinophils/100 WBC (Bld) 5.1 % Normal 0.0-7.0 [facility] ([place] Comment on above: Performed By: #### L IP, CMP, MDW, TROPHS, GFR, DIFF, MORPH, CBC #### [address] [address] Lymphocyte, Absolute 2.3 10 3/mcL Normal 0.8-3.9 [facility] ([place] Comment on above: Performed By: #### L IP, CMP, MDW, TROPHS, GFR, DIFF, MORPH, CBC #### [address] [address] Lymphocytes/100 WBC (Bld) 25.3 % Normal 10.0-50.0 [facility] ([place] Comment on above: Performed By: #### L IP, CMP, MDW, TROPHS, GFR, DIFF, MORPH, CBC #### [address] [address] Monocyte, Absolute 0.6 10 3/mcL Normal 0.2-1.0 [facility] ([place] Comment on above: Performed By: #### L IP, CMP, MDW, TROPHS, GFR, DIFF, MORPH, CBC #### [address] [address] Monocytes/100 WBC (Bld) 6.3 % Normal 1.7-13.0 [facility] ([place] Comment on above: Performed By: #### L IP, CMP, MDW, TROPHS, GFR, DIFF, MORPH, CBC #### [address] [address] Neutrophils/100 WBC (Bld) 62.3 % Normal 37.0-80.0 [facility] ([place] Comment on above: Performed By: #### L IP, CMP, MDW, TROPHS, GFR, DIFF, MORPH, CBC #### [address] [address] .GFRon 11-15-2023 GFR Non- 75 ml/min/1.73sqm Normal [facility] ([place] Comment on above: Result Comment: GFR Population mean for , Non- Americans Ages 20-29 = 116 mL/min/1.73 sq.m. Ages 30-39 = 107 mL/min/1.73 sq.m. Ages 40-49 = 99 mL/min/1.73 sq.m. Ages 50-59 = 93 mL/min/1.73 sq.m. Ages 60-69 = 85 mL/min/1.73 sq.m. Ages 70+ = 75 mL/min/1.73 sq.m. Chronic Kidney Disease: Less than 60 mL/min/1.73 square meters End Stage Renal Disease: Less than 15 mL/min/1.73 square meters Performed By: #### L IP, CMP, MDW, TROPHS, GFR, DIFF, MORPH, CBC #### [address] [address] GFR 91 ml/min/1.73sqm Normal [facility] ([place] Comment on above: Result Comment: GFR Population mean for , Non- Americans Ages 20-29 = 116 mL/min/1.73 sq.m. Ages 30-39 = 107 mL/min/1.73 sq.m. Ages 40-49 = 99 mL/min/1.73 sq.m. Ages 50-59 = 93 mL/min/1.73 sq.m. Ages 60-69 = 85 mL/min/1.73 sq.m. Ages 70+ = 75 mL/min/1.73 sq.m. Chronic Kidney Disease: Less than 60 mL/min/1.73 square meters End Stage Renal Disease: Less than 15 mL/min/1.73 square meters Performed By: #### L IP, CMP, MDW, TROPHS, GFR, DIFF, MORPH, CBC #### [address] [address] .NEUABSon 11-15-2023 Neutrophil, Absolute 5.7 10 3/mcL Normal 2.9-6.2 [facility] ([place] Comment on above: Performed By: #### L IP, CMP, MDW, TROPHS, GFR, DIFF, MORPH, CBC #### [address] [address] CBCon 11-15-2023 Erythrocyte distribution width (RBC) [Ratio] 13.6 % Normal 11.5-14.5 [facility] [place] Comment on above: Performed By: #### L IP, CMP, MDW, TROPHS, GFR, DIFF, MORPH, CBC #### [address] [address] Hematocrit (Bld) [Volume fraction] 39.7 % Low 42.0-52.0 [facility] [place] Comment on above: Performed By: #### L IP, CMP, MDW, TROPHS, GFR, DIFF, MORPH, CBC #### [address] [address] Hgb 13.5 G/dL Low 14.0-18.0 [facility] [place] Comment on above: Performed By: #### L IP, CMP, MDW, TROPHS, GFR, DIFF, MORPH, CBC #### [place] [id number] MCH (RBC) [Entitic mass] 32.6 pg High 27.0-31.2 [facility] [place] Comment on above: Performed By: #### L IP, CMP, MDW, TROPHS, GFR, DIFF, MORPH, CBC #### [address] [address] MCHC 34.1 G/dL Normal 31.8-35.4 [facility] [place] Comment on above: Performed By: #### L IP, CMP, MDW, TROPHS, GFR, DIFF, MORPH, CBC #### [address] [address] MCV (RBC) [Entitic vol] 95.6 fL High 80.0-94.0 [facility] ([place] Comment on above: Performed By: #### L IP, CMP, MDW, TROPHS, GFR, DIFF, MORPH, CBC #### [address] [address] Platelet 212 10 3/mcL Normal 130-400 [facility] [place] Comment on above: Performed By: #### L IP, CMP, MDW, TROPHS, GFR, DIFF, MORPH, CBC #### [address] [address] Platelet mean volume (Bld) [Entitic vol] 7.5 fL Normal 7.4-10.4 [facility] [place] Comment on above: Performed By: #### L IP, CMP, MDW, TROPHS, GFR, DIFF, MORPH, CBC #### [address] [address] RBC 4.15 10 6/mcL Normal 4.04-6.13 [facility] [place] Comment on above: Performed By: #### L IP, CMP, MDW, TROPHS, GFR, DIFF, MORPH, CBC #### [address] [address] WBC 9.1 10 3/mcL Normal 4.6-10.8 [facility] [place] Comment on above: Performed By: #### L IP, CMP, MDW, TROPHS, GFR, DIFF, MORPH, CBC #### [address] [address] CMPon 11-15-2023 Albumin Level 3.5 G/dL Normal 3.4-4.8 [facility]) Comment on above: Performed By: #### L IP, CMP, MDW, TROPHS, GFR, DIFF, MORPH, CBC #### [address] [address] Albumin/Globulin [Mass ratio] 1.1 {ratio} Normal 1.1-2.5 [facility] [place] Comment on above: Performed By: #### L IP, CMP, MDW, TROPHS, GFR, DIFF, MORPH, CBC #### [address] [address] ALP [Catalytic activity/Vol] 73 U/L Normal 40-135 [facility] ([place] Comment on above: Performed By: #### L IP, CMP, MDW, TROPHS, GFR, DIFF, MORPH, CBC #### [address] [address] ALT [Catalytic activity/Vol] 39 U/L Normal 16-63 [facility] [place] Comment on above: Performed By: #### L IP, CMP, MDW, TROPHS, GFR, DIFF, MORPH, CBC #### [address] [address] AST [Catalytic activity/Vol] 15 U/L Normal 10-40 [facility] [place] Comment on above: Performed By: #### L IP, CMP, MDW, TROPHS, GFR, DIFF, MORPH, CBC #### [address] [address] Bili Total 0.5 mg/dL Normal 0.2-1.0 [facility] [place] Comment on above: Result Comment: Use of this assay is not recommended for patients undergoing treatment with eltrombopag due to the potential for falsely elevated results. Performed By: #### L IP, CMP, MDW, TROPHS, GFR, DIFF, MORPH, CBC #### [address] [address] BUN/Creatinine Ratio 27 ratio Normal 7-27 [facility] ([place] Comment on above: Performed By: #### L IP, CMP, MDW, TROPHS, GFR, DIFF, MORPH, CBC #### [address] [address] Calcium [Mass/Vol] 9.1 mg/dL Normal 8.4-10.2 [facility] ([place] Comment on above: Performed By: #### L IP, CMP, MDW, TROPHS, GFR, DIFF, MORPH, CBC #### [address] [address] Chloride [Moles/Vol] 111 mmol/L High 98-107 [facility] ([place] Comment on above: Performed By: #### L IP, CMP, MDW, TROPHS, GFR, DIFF, MORPH, CBC #### [address] [address] CO2 [Moles/Vol] 26 mmol/L Normal 23-31 [facility] [place] Comment on above: Performed By: #### L IP, CMP, MDW, TROPHS, GFR, DIFF, MORPH, CBC #### [address] [address] Creatinine [Mass/Vol] 0.98 mg/dL Normal 0.70-1.30 [facility] ([place] Comment on above: Performed By: #### L IP, CMP, MDW, TROPHS, GFR, DIFF, MORPH, CBC #### [address] [address] Electrolyte Balance 11.0 mEq/L Normal 4.0-15.0 [facility] ([place] Comment on above: Performed By: #### L IP, CMP, MDW, TROPHS, GFR, DIFF, MORPH, CBC #### [address] [address] Globulin 3.1 G/dL Normal [facility] [place] Comment on above: Performed By: #### L IP, CMP, MDW, TROPHS, GFR, DIFF, MORPH, CBC #### [address] [address] Glucose [Mass/Vol] 102 mg/dL Normal 83-110 [facility] ([place] Comment on above: Performed By: #### L IP, CMP, MDW, TROPHS, GFR, DIFF, MORPH, CBC #### [address] [address] Potassium [Moles/Vol] 4.0 mmol/L Normal 3.5-5.1 [facility] ([place] Comment on above: Performed By: #### L IP, CMP, MDW, TROPHS, GFR, DIFF, MORPH, CBC #### [address] [address] Sodium [Moles/Vol] 148 mmol/L High 136-145 [facility] ([place] Comment on above: Performed By: #### L IP, CMP, MDW, TROPHS, GFR, DIFF, MORPH, CBC #### [address] [address] Total Protein 6.6 G/dL Normal 6.4-8.2 [facility] [place] Comment on above: Performed By: #### L IP, CMP, MDW, TROPHS, GFR, DIFF, MORPH, CBC #### [address] [place] [address] Urea nitrogen [Mass/Vol] 26 mg/dL High 7-18 [facility] [place] Comment on above: Performed By: #### L IP, CMP, W, TROPHS, GFR, DIFF, MORPH, CBC #### [address] [address] CPEPon 11-15-2023 C-Peptide 1.06 ng/mL Normal 0.81-3.85 [facility] [place] Comment on above: Performed By: #### L IP, CMP, MDW, TROPHS, GFR, DIFF, MORPH, CBC #### [address] [address] FEon 11-15-2023 Iron [Mass/Vol] 95 ug/dL Normal 65-175 [facility] [place] Comment on above: Performed By: #### L IP, CMP, W, TROPHS, GFR, DIFF, MORPH, CBC #### [address] [address] Silvia 11-15-2023 Ferritin [Mass/Vol] 221.0 ng/mL Normal 26.0-388.0 [facility] ([place] Comment on above: Performed By: #### L IP, DIANA, W, TROPHS, GFR, DIFF, MORPH, CBC #### [address] [address] IBCon 11-15-2023 TIBC 244 mcg/dL Low 250-450 [facility] ([place] Comment on above: Performed By: #### L IP, CMP, MDW, TROPHS, GFR, DIFF, MORPH, CBC #### [address] [id number] IGAon 11-15-2023 IgA [Mass/Vol] 342 mg/dL Normal 40-350 [facility] ([place]) Comment on above: Result Comment: No te - New Reference Range in effect 19 Performed By: #### L IP, CMP, MDW, TROPHS, GFR, DIFF, MORPH, CBC #### [address] [address] LABORATORYOrdered By: Ayo Funes on 11-15-2023 Albumin DL <= 20 mg/L (U) [Mass/Vol] 872 mcg/dL Invalid Interpretation Code AO ADM SS Albumin/Creatinine DL <= 20 mg/L (U) [Mass ratio] 7 mcg/mg Normal 0 - 30 mcg/mg AO ADM SS Creatinine (U) [Mass/Vol] 128.1 mg/dL Normal 39.0 - 259.0 mg/dL AO ADM SS Cholesterol [Mass/Vol] 133 mg/dL Normal 0 - 2 00 mg/dL AO ADM SS Comment on above: Interpretive Data: C holesterol Reference Interval: Less than 200 Desirable 200-239 Borderline high risk 240 and above High risk Cholesterol in HDL [Mass/Vol] 49 mg/dL Normal 40 - 60 mg/dL AO ADM SS Cholesterol in LDL [Mass/Vol] 77 mg/dL Normal 0 - 130 mg/dL AO ADM SS Triglyceride [Mass/Vol] 37 mg/dL Normal 0 - 150 mg/dL AO ADM SS Comment on above: Interpretive Data: T riglyceride Reference Interval: Less than 150 Normal 150-199 Borderline high risk 200-499 High risk 500 or higher Very high risk LABORATORYOrdered By: [employer] SYSTEM on 11-15-2023 25-hydroxyvitamin D3 [Mass/Vol] 34.7 ng/mL Invalid Interpretation Code AO ADM SS Comment on above: Interpretive Data: I nterpretive Values Based on Total 25(OH) Vitamin D: Deficient <20 ng/mL Insufficient 20 - <30 ng/mL Sufficient 30-100 ng/mL Albumin BCP dye [Mass/Vol] 3.5 G/dL Normal 3.4 - 4.8 G/dL AO ADM SS Albumin/Globulin [Mass ratio] 1.1 {ratio} Normal 1.1 - 2.5 ratio AO ADM SS ALP [Catalytic activity/Vol] 73 U/L Normal 40 - 135 U/L AO ADM SS ALT With P-5'-P [Catalytic activity/Vol] 39 U/L Normal 16 - 63 U/L AO ADM SS AST With P-5'-P [Catalytic activity/Vol] 15 U/L Normal 10 - 40 U/L AO ADM SS Basophil, Absolute 0.1 103/mcL Normal 0.0 - 0.2 10^3/mcL AO Workflow SS Basophils/100 WBC (Bld) 1.0 % Normal 0.0 - 2.5 % AO Workflow SS Bilirubin [Mass/Vol] 0.5 mg/dL Normal 0.2 - 1 .0 mg/dL AO ADM SS Comment on above: Interpretive Data: U se of this assay is not recommended for patients undergoing treatment with eltrombopag due to the potential for falsely elevated results. C peptide [Mass/Vol] 1.06 ng/mL Normal 0.81 - 3.85 ng/mL AH ADM SS Calcium [Mass/Vol] 9.1 mg/dL Normal 8.4 - 10. 2 mg/dL AO ADM SS Chloride [Moles/Vol] 111 mmol/L High 98 - 10 7 mmol/L AO ADM SS CO2 [Moles/Vol] 26 mmol/L Normal 23 - 31 mmol/L AO ADM SS Creatinine [Mass/Vol] 0.98 mg/dL Normal 0.70 - 1.30 mg/dL AO ADM SS Electrolyte Balance 11.0 mEq/L Normal 4.0 - 15 .0 mEq/L AO ADM SS Eosinophil, Absolute 0.5 103/mcL High 0.0 - 0 .4 10^3/mcL AO Workflow SS Eosinophils/100 WBC (Bld) 5.1 % Normal 0.0 - 7.0 % AO Workflow SS Erythrocyte distribution width (RBC) [Ratio] 13.6 % Normal 11.5 - 14.5 % AO Workflow SS Ferritin [Mass/Vol] 221.0 ng/mL Normal 26.0 - 388.0 ng/mL AO ADM SS GFR/1.73 sq M.predicted among blacks MDRD (S/P/Bld) [Vol rate/Area] 91 ml/min/1.73sqm Invalid Interpretation Code AO Chemistry S Comment on above: Interpretive Data: GFR Population mean for , Non- Americans Ages 20-29 = 116 mL/min/1.73 sq.m. Ages 30-39 = 107 mL/min/1.73 sq.m. Ages 40-49 = 99 mL/min/1.73 sq.m. Ages 50-59 = 93 mL/min/1.73 sq.m. Ages 60-69 = 85 mL/min/1.73 sq.m. Ages 70+ = 75 mL/min/1.73 sq.m. Chronic Kidney Disease: Less than 60 mL/min/1.73 square meters End Stage Renal Disease: Less than 15 mL/min/1.73 square meters GFR/1.73 sq M.predicted among non-blacks MDRD (S/P/Bld) [Vol rate/Area] 75 ml/min/1.73sqm Invalid Interpretation Code AO Chemistry S Comment on above: Interpretive Data: GFR Population mean for , Non- Americans Ages 20-29 = 116 mL/min/1.73 sq.m. Ages 30-39 = 107 mL/min/1.73 sq.m. Ages 40-49 = 99 mL/min/1.73 sq.m. Ages 50-59 = 93 mL/min/1.73 sq.m. Ages 60-69 = 85 mL/min/1.73 sq.m. Ages 70+ = 75 mL/min/1.73 sq.m. Chronic Kidney Disease: Less than 60 mL/min/1.73 square meters End Stage Renal Disease: Less than 15 mL/min/1.73 square meters Globulin 3.1 G/dL Invalid Interpretation Code AO ADM SS Glucose [Mass/Vol] 102 mg/dL Normal 83 - 110 mg/dL AO ADM SS Hematocrit (Bld) [Volume fraction] 39.7 % Low 42.0 - 52.0 % AO Workflow SS Hemoglobin (Bld) [Mass/Vol] 13.5 G/dL Low 14.0 - 18.0 G/dL AO Workflow SS IgA [Mass/Vol] 342 mg/dL Normal 40 - 350 mg/dL AH ADM SS Comment on above: Interpretive Data: * *Note - New Reference Range in effect 19 Iron [Mass/Vol] 95 ug/dL Normal 65 - 175 mcg/dL AO ADM SS Iron binding capacity [Mass/Vol] 244 mcg/dL Low 250 - 450 mcg/dL AO ADM SS Lymphocyte, Absolute 2.3 103/mcL Normal 0.8 - 3 .9 10^3/mcL AO Workflow SS Lymphocytes/100 WBC (Bld) 25.3 % Normal 10.0 - 50.0 % AO Workflow SS MCH (RBC) [Entitic mass] 32.6 pg High 27.0 - 31.2 pg AO Workflow SS MCHC 34.1 G/dL Normal 31.8 - 35.4 G/dL AO Workflow SS MCV (RBC) [Entitic vol] 95.6 fL High 80.0 - 94.0 fL AO Workflow SS Monocyte, Absolute 0.6 103/mcL Normal 0.2 - 1.0 10^3/mcL AO Workflow SS Monocytes/100 WBC (Bld) 6.3 % Normal 1.7 - 13.0 % AO Workflow SS Neutrophil, Absolute 5.7 103/mcL Normal 2.9 - 6 .2 10^3/mcL AO Workflow SS Neutrophils/100 WBC (Bld) 62.3 % Normal 37.0 - 80.0 % AO Workflow SS Platelet mean volume (Bld) [Entitic vol] 7.5 fL Normal 7.4 - 10.4 fL AO Workflow SS Platelets (Bld) [#/Vol] 212 103/mcL Normal 130 - 400 10^3/mcL AO Workflow SS Potassium [Moles/Vol] 4.0 mmol/L Normal 3.5 - 5.1 mmol/L AO ADM SS Protein [Mass/Vol] 6.6 G/dL Normal 6.4 - 8.2 G/dL AO ADM SS RBC (Bld) [#/Vol] 4.15 106/mcL Normal 4.04 - 6.1 3 10^6/mcL AO Workflow SS Sodium [Moles/Vol] 148 mmol/L High 136 - 145 mmol/L AO ADM SS TSH Qn 2.47 m[IU]/L Normal 0.36 - 3.74 mcIU/mL AO ADM SS Urea nitrogen [Mass/Vol] 26 mg/dL High 7 - 18 mg/dL AO ADM SS Urea nitrogen/Creatinine [Mass ratio] 27 ratio Normal 7 - 27 ratio AO ADM SS WBC (Bld) [#/Vol] 9.1 103/mcL Normal 4.6 - 10.8 10^3/mcL AO Workflow SS LIPIDon 11-15-2023 Cholesterol [Mass/Vol] 133 mg/dL Normal 0-200 [facility] ([place]) Comment on above: Result Comment: Chol esterol Reference Interval: Less than 200 Desirable 200-239 Borderline high risk 240 and above High risk Performed By: #### L IP, CMP, MDW, TROPHS, GFR, DIFF, MORPH, CBC #### [address] [id number] [place], [place] [address] Cholesterol in HDL [Mass/Vol] 49 mg/dL Normal 40-60 [facility] ([place]) Comment on above: Performed By: #### L IP, DIANA, MDW, TROPHS, GFR, DIFF, MORPH, CBC #### [address] [address] Cholesterol in LDL [Mass/Vol] 77 mg/dL Normal 0-130 [facility] ([place]) Comment on above: Performed By: #### L IP, CMP, MDW, TROPHS, GFR, DIFF, MORPH, CBC #### [address] [address] Triglyceride [Mass/Vol] 37 mg/dL Normal 0-150 A [facility] ([place]) Comment on above: Result Comment: Trig lyceride Reference Interval: Less than 150 Normal 150-199 Borderline high risk 200-499 High risk 500 or higher Very high risk Performed By: #### L IP, DIANA, MDW, TROPHS, GFR, DIFF, MORPH, CBC #### [address] [address] MALBRon 11-15-2023 U Creatinine 128.1 mg/dL Normal 39.0-259.0 [facility] ([place]) Comment on above: Performed By: #### L IP, DIANA, W, TROPHS, GFR, DIFF, MORPH, CBC #### [address] [address] U Microalb 872 mcg/dL Normal [facility] ([place]) Comment on above: Performed By: #### L IP, DIANA, W, TROPHS, GFR, DIFF, MORPH, CBC #### [address] [address] U Ratio Alb/Cre 7 mcg/mg Normal 0-30 [facility] ([place]) Comment on above: Performed By: #### L IP, DIANA, MDW, TROPHS, GFR, DIFF, MORPH, CBC #### [address] [address] TSHon 11-15-2023 TSH Qn 2.47 m[IU]/L Normal 0.36-3.74 [facility] ([place]) Comment on above: Performed By: #### L IP, CMP, W, TROPHS, GFR, DIFF, MORPH, CBC #### [id number] [place], [place] [address] Huyen 11-15-2023 Vit. D 25-Hydroxy 34.7 ng/mL Normal [facility] ([place]) Comment on above: Result Comment: Inte rpretive Values Based on Total 25(OH) Vitamin D: Deficient <20 ng/mL Insufficient 20 - <30 ng/mL Sufficient 30-100 ng/mL Performed By: #### L IP, DIANA, W, TROPHS, GFR, DIFF, MORPH, CBC #### [address] [place] [address] [place], [place] [address] Yenny 08-12-2023 [facility] Telephone ([facility]) RENNY RUSSO ([id number]) 1950 M Date Time Provider Department 08/12/23 AMILCAR VERONICA [facility] During your visit today, we recorded the following information about you: Amilcar Veronica MD 08/12/2023 8:38 AM Signed Culture grew staph bacteria. I have sent an oral antibiotic to the pharmacy in [place] to help treat. Continue applying the antifungal cream to the umbilicus. Katiuska Palomares, RN 08/12/2023 3:14 PM Signed catering service manager Josefina returning the call as she states [facility] and that she thinks they attempted to call her. She is notified that pt has a staph infection and needs an antibiotic in addition to continuing the antifungal cream to the umbilicus. Notified that the antibiotic was sent to the pharmacy in [place]. She states that they no longer use that pharmacy and would like antibiotic sent to pt's mail order in [place], [place]. Instructed that pt needs to start the antibiotic today so will need to send to a local pharmacy. After much encouragement, Josefina asks that script be sent to [facility] in [place] and she will pick it up there. Notified guardian Maggie Dixonjosefina about pt's results and need for antibiotics. She requests that the nurse Veronica needs to be notified as soon as possible. Attempted to contact her and VM went to a [employer] phone number. No msg left. Maggie had stated to call [facility] where pt is currently living and get Veronica's phone number. Called and spoke with Junie at [facility] who states Homa sometimes covers for Veronica. Re-attempted Veronica's number and got Homa's VM again. Called Homa Bender's cell number and LM of the above and pt's need for an antibiotic today and to return the call that she received this msg. Also called Junie back to see if she could let the nurse know to follow up on pt getting and receiving his antibiotic and aware pt has an antifungal cream that needs to be applied. She will email nurse and warehouse incentive selector in charge to follow up. Katiuska Palomares, MARISA 08/12/2023 3:14 PM Signed Called and instructed [place] pharmacy not to fill script. Called and spoke with Yvette at [facility] in [place]. Gave her verbal order for antibiotic. Allergies As of Date: 08/12/2023 (No Known Allergies) Date Reviewed: 08/09/2023 Reviewed by: Kristan Mckinney - Fully Assessed Reason for Visit: Results [95] Cmt: MSSA Need for antibiotic [Other] Order(s):cephALEXin (KEFLEX) 500 mg capsuleTake 1 capsule by mouth three times a day for 5 days.Disp: 15 capsuleRfl: 0 Prescriptions as of 08/12/2023 - cephALEXin (KEFLEX) 500 mg capsule Take 1 capsule by mouth three times a day for 5 days. - insulin aspart U-100 (NOVOLOG FLEXPEN U-100 INSULIN) 100 unit/mL (3 mL) Inject 4 Units subcutaneously three times a day before meals. - oxybutynin ER (DITROPAN XL) 10 mg 24 hr tablet Take 10 mg by mouth once daily. - zinc oxide (DESITIN DAILY DEFENSE TOPICAL) Apply to affected area. - timolol/dorzolamide/lat anop/PF (AIMHCCI-PCOIOABWDO-AMM ANOP,PF,) 0.5-2-0.005 % drop Use in eyes. - clotrimazole (LOTRIMIN) 1 % cream Apply to affected area two times a day for 14 days. - QUEtiapine (SEROQUEL) 25 mg tablet Take 1 tablet by mouth twice daily. - donepezil (ARICEPT) 5 mg tablet Take 5 mg by mouth daily at bedtime. - erythromycin (ROMYCIN) 5 mg/gram (0.5 %) ophthalmic ointment 1 application once daily. - oxybutynin ER (DITROPAN XL) 10 mg 24 hr tablet Take 10 mg by mouth once daily. - busPIRone (BUSPAR) 10 mg tablet Take 20 mg by mouth three times daily. - escitalopram oxalate (LEXAPRO) 20 mg tablet Take 20 mg by mouth once daily. - gabapentin (NEURONTIN) 100 mg capsule Take 100 mg by mouth twice daily. - ketoconazole 2 % cream Apply 1 application to affected area twice daily. 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 Encounter Status:Closed by SAHARA CHUN on 08/12/23 Normal [facility] Bacteria Wnd Culton 08-09-19 24 Bacteria identified Cx Nom (Wound) ORGANISM ID: 1 Many Staphylococcus aureus GRAM STAIN: Few Gram positive cocci Few Gram negative bacilli No Polymorphonuclear Leukocytes ORGANISM ID: 1 (STAPHYLOCOCCUS AUREUS) ANTIBIOTIC INTERPRETATION BRET STATUS REFERENCE RANGE Oxacillin S 0.5 F Susceptible <=2 , Resistant >2 Oxacillin-susceptible staphylococci are susceptible to other penicilllinase-stable penicillins, beta-lactam/beta-lactam ase inhibitor combinations, anti-staphylococcal cephems, and carbapenems. Erythromycin R >=8 F Susceptible <=0.5 , Intermediate >.5 , Resistant >4 Clindamycin S 0.25 F Susceptible <=0.5 , Intermediate >.5 , Resistant >2 Testing for inducible clindamycin resistance was performed. Trimeth sulfameth S <=10 F Susceptible <=40 , Resistant >40 Vancomycin S 1 F Susceptible <=2 , Intermediate >2 , Resistant >8 Rifampin S <=0.5 F Susceptible <=1 , Intermediate >1 , Resistant >2 Rifampin should not be used alone for antimicrobial therapy. Tetracycline S <=1 F Susceptible <=4 , Intermediate >4 , Resistant >8 Doxycycline S <=0.5 F Susceptible <=4 , Intermediate >4 , Resistant >8 Abnormal [facility] Comment on above: Performed By: #### 6 [id number] #### [facility] CLIA [id number] [address] [place] [address] STATES OF [facility] CNOVon 08-09-2023 CNOV Office Visit (UCWSTR ) RENNY RUSSO ([id number]) 1950 M Date Time Provider Department 08/09/23 6:30 PM AMILCAR VERONICA [facility] During your visit today, we recorded the following information about you: Temperature Pulse Respiration Blood pressure 98.2 degrees 66/minute 16/minute 130/78 Weight 71.7 kg Amilcar Veronica MD 08/09/2023 7:08 PM Signed Patient presents with: Abdominal Pain: Naval pain x1 day HPI: umbilical pain: Duration: noticed today Location: inside umbilicus Character: says it hurts Associated: redness, debris Pertinent negatives: Denies fever Recently hospitalized with new onset uncontrolled DM. MEDICATIONS: insulin aspart U-100 (NOVOLOG FLEXPEN U-100 INSULIN) 100 unit/mL (3 mL) Inject 4 Units subcutaneously three times a day before meals. oxybutynin ER (DITROPAN XL) 10 mg 24 hr tablet Take 10 mg by mouth once daily. zinc oxide (DESITIN DAILY DEFENSE TOPICAL) Apply to affected area. timolol/dorzolamide/lat anop/PF (XBOMTCY-NQTHRWQYGQ-GSJ ANOP,PF,) 0.5-2-0.005 % drop Use in eyes. QUEtiapine (SEROQUEL) 25 mg tablet Take 1 tablet by mouth twice daily. donepezil (ARICEPT) 5 mg tablet Take 5 mg by mouth daily at bedtime. erythromycin (ROMYCIN) 5 mg/gram (0.5 %) ophthalmic ointment 1 application once daily. oxybutynin ER (DITROPAN XL) 10 mg 24 hr tablet Take 10 mg by mouth once daily. busPIRone (BUSPAR) 10 mg tablet Take 20 mg by mouth three times daily. escitalopram oxalate (LEXAPRO) 20 mg tablet Take 20 mg by mouth once daily. gabapentin (NEURONTIN) 100 mg capsule Take 100 mg by mouth twice daily. ketoconazole 2 % cream Apply 1 application to affected area twice daily. LORATADINE 10 MG TAB Take one(1) tablet daily for allergy symptoms including sneezing, itchy, watery eyes, and congestion ALLERGIES: ALLERGIES No Known Allergies VITALS: BP 130/78 Pulse 66 Temp 36.8 ?C (98.2 ?F) Resp 16 Wt 71.7 kg (158 lb 1.1 oz) SpO2 98% BMI 20.85 kg/m? PHYSICAL EXAM: GEN: pleasant, alert, no acute distress, hits himself in the cheek for soothing. Accompanied by his caregiver who provides the history. SKIN: erythema with crusty yellow debris inside the umbilicus ASSESSMENT/PLAN: 1. Umbilical discharge - ICD9: 789.9, ICD10: R19.8 Suspect fungal; uncontrolled DM contributing. Start - CLOTRIMAZOLE 1 % TOPICAL CREAM - ABSCESS AND WOUND CULTURE WITH GRAM STAIN to assess for bacterial dermatitis. Amilcar Veronica MD Allergies As of Date: 08/09/2023 (No Known Allergies) Date Reviewed: 08/09/2023 Reviewed by: Kristan Mckinney - Fully Assessed Reason for Visit: Abdominal Pain [1] Cmt: Naval pain x1 day Primary Visit Diagnosis:Umbilical discharge [R19.8] Order(s):ABSCESS AND WOUND CULTURE WITH GRAM STAIN [SQWCUL] Order #: [id number]. #:[id number] clotrimazole (LOTRIMIN) 1 % creamApply to affected area two times a day for 14 days.Disp: 30 gRfl: 0 Prescriptions as of 08/12/2023 - cephALEXin (KEFLEX) 500 mg capsule Take 1 capsule by mouth three times a day for 5 days. - insulin aspart U-100 (NOVOLOG FLEXPEN U-100 INSULIN) 100 unit/mL (3 mL) Inject 4 Units subcutaneously three times a day before meals. - oxybutynin ER (DITROPAN XL) 10 mg 24 hr tablet Take 10 mg by mouth once daily. - zinc oxide (DESITIN DAILY DEFENSE TOPICAL) Apply to affected area. - timolol/dorzolamide/lat anop/PF (GRXSTEP-XATNVOYONE-MLS ANOP,PF,) 0.5-2-0.005 % drop Use in eyes. - clotrimazole (LOTRIMIN) 1 % cream Apply to affected area two times a day for 14 days. - QUEtiapine (SEROQUEL) 25 mg tablet Take 1 tablet by mouth twice daily. - donepezil (ARICEPT) 5 mg tablet Take 5 mg by mouth daily at bedtime. - erythromycin (ROMYCIN) 5 mg/gram (0.5 %) ophthalmic ointment 1 application once daily. - oxybutynin ER (DITROPAN XL) 10 mg 24 hr tablet Take 10 mg by mouth once daily. - busPIRone (BUSPAR) 10 mg tablet Take 20 mg by mouth three times daily. - escitalopram oxalate (LEXAPRO) 20 mg tablet Take 20 mg by mouth once daily. - gabapentin (NEURONTIN) 100 mg capsule Take 100 mg by mouth twice daily. - ketoconazole 2 % cream Apply 1 application to affected area twice daily. 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 Normal [facility] .Auto Diffon 08-07-2023 Basophil, Absolute 0.1 10 3/mcL Normal 0.0-0.2 [facility] ([place]) Comment on above: Performed By: #### C BC, ADIFF, ANEU #### [address] [address] Basophils/100 WBC (Bld) 0.8 % Normal 0.0-2.5 A [facility] ([place]) Comment on above: Performed By: #### C BC, ADIFF, ANEU #### [address] [address] Eosinophil, Absolute 0.4 10 3/mcL Normal 0.0-0.4 [facility] ([place]) Comment on above: Performed By: #### C BC, ADIFF, ANEU #### [address] [address] Eosinophils/100 WBC (Bld) 2.8 % Normal 0.0-7.0 [facility] ([place]) Comment on above: Performed By: #### C MADELAINE, ADIFF, ANEU #### [address] [address] Lymphocyte, Absolute 3.3 10 3/mcL Normal 0.8-3.9 [facility] ([place]) Comment on above: Performed By: #### C MADELAINE, ADIFF, ANEU #### [address] [address] Lymphocytes/100 WBC (Bld) 22.7 % Normal 10.0-50.0 [facility] ([place]) Comment on above: Performed By: #### C MADELAINE, ADIFF, ANEU #### [address] [address] Monocyte, Absolute 1.1 10 3/mcL High 0.2-1.0 [facility] ([place]) Comment on above: Performed By: #### C BC, ADIFF, ANEU #### [address] [address] Monocytes/100 WBC (Bld) 7.3 % Normal 1.7-13.0 A [facility] ([place]) Comment on above: Performed By: #### C BC, ADIFF, ANEU #### [address] [address] Neutrophils/100 WBC (Bld) 66.4 % Normal 37.0-80.0 [facility] ([place]) Comment on above: Performed By: #### C CHARLENE BURKETT, ANEU #### [address] [address] .NEUABSon 08-07-2023 Neutrophil, Absolute 9.7 10 3/mcL High 2.9-6.2 [facility] ([place]) Comment on above: Performed By: #### L IP, CMP, MDW, TROPHS, GFR, DIFF, MORPH, CBC #### [place] [address] CBCon 08-07-2023 Erythrocyte distribution width (RBC) [Ratio] 13.3 % Normal 11.5-14.5 [facility] ([place]) Comment on above: Performed By: #### C CHARLENE BURKETT, ANEU #### [address] [address] Hematocrit (Bld) [Volume fraction] 38.7 % Low 42.0-52.0 [facility] ([place]) Comment on above: Performed By: #### C CHARLENE BURKETT, ANEU #### [address] [address] Hgb 13.5 G/dL Low 14.0-18.0 [facility] ([place] Comment on above: Performed By: #### C CHARLENE BURKETT, ANEU #### [address] [address] MCH (RBC) [Entitic mass] 33.2 pg High 27.0-31.2 [facility] ([place]) Comment on above: Performed By: #### C CHARLENE BURKETT, ANEU #### [address] [address] MCHC 34.9 G/dL Normal 31.8-35.4 [facility] ([place] Comment on above: Performed By: #### C CHARLENE BURKETT, ANEU #### [address] [address] MCV (RBC) [Entitic vol] 95.2 fL High 80.0-94.0 A [facility] ([place]) Comment on above: Performed By: #### C CHARLENE BURKETT, ANEU #### [place] [address] Platelet 465 10 3/mcL High 130-400 [facility] ([place] Comment on above: Performed By: #### C CHARLENE BURKETT, ANEU #### [place] [address] Platelet mean volume (Bld) [Entitic vol] 7.1 fL Low 7.4-10.4 [facility] ([place]) Comment on above: Performed By: #### C CHARLENE BURKETT, SHANNAN #### [address] [address] RBC 4.06 10 6/mcL Normal 4.04-6.13 [facility] ([place] Comment on above: Performed By: #### CHARLENE PAUL, SHANNAN #### [place] [address] WBC 14.6 10 3/mcL High 4.6-10.8 [facility] ([place]) Comment on above: Performed By: #### C CHARLENE BURKETT, ANEU #### [address] [address] LABORATORYOrdered By: SYSTEM SYSTEM on 08-07-2023 Basophil, Absolute 0.1 103/mcL Normal 0.0 - 0.2 10^3/mcL AO Workflow SS Basophils/100 WBC (Bld) 0.8 % Normal 0.0 - 2.5 % AO Workflow SS Eosinophil, Absolute 0.4 103/mcL Normal 0.0 - 0 .4 10^3/mcL AO Workflow SS Eosinophils/100 WBC (Bld) 2.8 % Normal 0.0 - 7.0 % AO Workflow SS Erythrocyte distribution width (RBC) [Ratio] 13.3 % Normal 11.5 - 14.5 % AO Workflow SS Hematocrit (Bld) [Volume fraction] 38.7 % Low 42.0 - 52.0 % AO Workflow SS Hemoglobin (Bld) [Mass/Vol] 13.5 G/dL Low 14.0 - 18.0 G/dL AO Workflow SS Lymphocyte, Absolute 3.3 103/mcL Normal 0.8 - 3 .9 10^3/mcL AO Workflow SS Lymphocytes/100 WBC (Bld) 22.7 % Normal 10.0 - 50.0 % AO Workflow SS MCH (RBC) [Entitic mass] 33.2 pg High 27.0 - 31.2 pg AO Workflow SS MCHC 34.9 G/dL Normal 31.8 - 35.4 G/dL AO Workflow SS MCV (RBC) [Entitic vol] 95.2 fL High 80.0 - 94.0 fL AO Workflow SS Monocyte, Absolute 1.1 103/mcL High 0.2 - 1.0 10^3/mcL AO Workflow SS Monocytes/100 WBC (Bld) 7.3 % Normal 1.7 - 13.0 % AO Workflow SS Neutrophil, Absolute 9.7 103/mcL High 2.9 - 6 .2 10^3/mcL AO Workflow SS Neutrophils/100 WBC (Bld) 66.4 % Normal 37.0 - 80.0 % AO Workflow SS Platelet mean volume (Bld) [Entitic vol] 7.1 fL Low 7.4 - 10.4 fL AO Workflow SS Platelets (Bld) [#/Vol] 465 103/mcL High 130 - 400 10^3/mcL AO Workflow SS RBC (Bld) [#/Vol] 4.06 106/mcL Normal 4.04 - 6.1 3 10^6/mcL AO Workflow SS WBC (Bld) [#/Vol] 14.6 103/mcL High 4.6 - 10.8 10^3/mcL AO Workflow SS .Auto Diffon 07-29-2023 Basophil, Absolute 0.1 10 3/mcL Normal 0.0-0.2 [facility] ([place]) Comment on above: Performed By: #### L IP, CMP, MDW, TROPHS, GFR, DIFF, MORPH, CBC #### [address] [address] Basophils/100 WBC (Bld) 0.3 % Normal 0.0-2.5 A [facility] ([place]) Comment on above: Performed By: #### L IP, CMP, MDW, TROPHS, GFR, DIFF, MORPH, CBC #### [address] [address] Eosinophil, Absolute 0.0 10 3/mcL Normal 0.0-0.4 [facility] ([place]) Comment on above: Performed By: #### L IP, CMP, MDW, TROPHS, GFR, DIFF, MORPH, CBC #### [address] [address] Eosinophils/100 WBC (Bld) 0.2 % Normal 0.0-7.0 [facility] ([place]) Comment on above: Performed By: #### L IP, CMP, MDW, TROPHS, GFR, DIFF, MORPH, CBC #### [address] [address] Lymphocyte, Absolute 2.0 10 3/mcL Normal 0.8-3.9 [facility] ([place]) Comment on above: Performed By: #### L IP, CMP, MDW, TROPHS, GFR, DIFF, MORPH, CBC #### [address] [address] Lymphocytes/100 WBC (Bld) 12.8 % Normal 10.0-50.0 [facility] ([place]) Comment on above: Performed By: #### L IP, CMP, MDW, TROPHS, GFR, DIFF, MORPH, CBC #### [address] [address] Monocyte, Absolute 1.2 10 3/mcL High 0.2-1.0 [facility] ([place]) Comment on above: Performed By: #### L IP, CMP, MDW, TROPHS, GFR, DIFF, MORPH, CBC #### [address] [address] Monocytes/100 WBC (Bld) 7.5 % Normal 1.7-13.0 [facility] ([place]) Comment on above: Performed By: #### L IP, CMP, MDW, TROPHS, GFR, DIFF, MORPH, CBC #### [address] [address] Neutrophils/100 WBC (Bld) 79.2 % Normal 37.0-80.0 [facility] ([place]) Comment on above: Performed By: #### L IP, CMP, MDW, TROPHS, GFR, DIFF, MORPH, CBC #### [address] [address] .GFRon 07-29-2023 GFR 74 ml/min/1.73sqm Normal [facility] ([place]) Comment on above: Result Comment: GFR Population mean for , Non- Americans Ages 20-29 = 116 mL/min/1.73 sq.m. Ages 30-39 = 107 mL/min/1.73 sq.m. Ages 40-49 = 99 mL/min/1.73 sq.m. Ages 50-59 = 93 mL/min/1.73 sq.m. Ages 60-69 = 85 mL/min/1.73 sq.m. Ages 70+ = 75 mL/min/1.73 sq.m. Chronic Kidney Disease: Less than 60 mL/min/1.73 square meters End Stage Renal Disease: Less than 15 mL/min/1.73 square meters Performed By: #### L IP, CMP, MDW, TROPHS, GFR, DIFF, MORPH, CBC #### [address] [address] GFR Non- 61 ml/min/1.73sqm Normal [facility] ([place]) Comment on above: Result Comment: GFR Population mean for , Non- Americans Ages 20-29 = 116 mL/min/1.73 sq.m. Ages 30-39 = 107 mL/min/1.73 sq.m. Ages 40-49 = 99 mL/min/1.73 sq.m. Ages 50-59 = 93 mL/min/1.73 sq.m. Ages 60-69 = 85 mL/min/1.73 sq.m. Ages 70+ = 75 mL/min/1.73 sq.m. Chronic Kidney Disease: Less than 60 mL/min/1.73 square meters End Stage Renal Disease: Less than 15 mL/min/1.73 square meters Performed By: #### L IP, CMP, MDW, TROPHS, GFR, DIFF, MORPH, CBC #### [address] [address] .NEUABSon 07-29-2023 Neutrophil, Absolute 12.7 10 3/mcL High 2.9-6.2 A [facility] ([place]) Comment on above: Performed By: #### L IP, CMP, MDW, TROPHS, GFR, DIFF, MORPH, CBC #### [address] [address] BMPon 07-29-2023 BUN/Creatinine Ratio 26 ratio Normal 7-27 [facility] ([place]) Comment on above: Performed By: #### L IP, CMP, MDW, TROPHS, GFR, DIFF, MORPH, CBC #### [address] [address] Calcium [Mass/Vol] 8.1 mg/dL Low 8.4-10.2 [facility] ([place]) Comment on above: Performed By: #### L IP, CMP, MDW, TROPHS, GFR, DIFF, MORPH, CBC #### [address] [address] Chloride [Moles/Vol] 107 mmol/L Normal 98-107 [facility] ([place]) Comment on above: Performed By: #### L IP, CMP, MDW, TROPHS, GFR, DIFF, MORPH, CBC #### [address] [address] CO2 [Moles/Vol] 32 mmol/L High 23-31 [facility] ([place]) Comment on above: Performed By: #### L IP, CMP, MDW, TROPHS, GFR, DIFF, MORPH, CBC #### [address] [address] Creatinine [Mass/Vol] 1.17 mg/dL Normal 0.70-1.30 [facility] ([place]) Comment on above: Performed By: #### L IP, CMP, MDW, TROPHS, GFR, DIFF, MORPH, CBC #### [address] [address] Electrolyte Balance 2.0 mEq/L Low 4.0-15.0 [facility] ([place]) Comment on above: Performed By: #### L IP, CMP, MDW, TROPHS, GFR, DIFF, MORPH, CBC #### [address] [address] Glucose [Mass/Vol] 256 mg/dL High 83-110 [facility] ([place]) Comment on above: Performed By: #### L IP, CMP, MDW, TROPHS, GFR, DIFF, MORPH, CBC #### [address] [address] Potassium [Moles/Vol] 4.3 mmol/L Normal 3.5-5.1 [facility] ([place]) Comment on above: Performed By: #### L IP, CMP, MDW, TROPHS, GFR, DIFF, MORPH, CBC #### [place] [id number] Sodium [Moles/Vol] 141 mmol/L Normal 136-145 [facility] ([place]) Comment on above: Performed By: #### L IP, CMP, MDW, TROPHS, GFR, DIFF, MORPH, CBC #### [address] [address] Urea nitrogen [Mass/Vol] 31 mg/dL High 7-18 [facility] ([place]) Comment on above: Performed By: #### L IP, CMP, MDW, TROPHS, GFR, DIFF, MORPH, CBC #### [address] [address] CBCon 07-29-2023 Erythrocyte distribution width (RBC) [Ratio] 13.1 % Normal 11.5-14.5 [facility]) Comment on above: Performed By: #### L IP, CMP, MDW, TROPHS, GFR, DIFF, MORPH, CBC #### [address] [address] Hematocrit (Bld) [Volume fraction] 39.4 % Low 42.0-52.0 [facility] ([place]) Comment on above: Performed By: #### L IP, CMP, MDW, TROPHS, GFR, DIFF, MORPH, CBC #### [address] [address] Hgb 13.5 G/dL Low 14.0-18.0 [facility] ([place]) Comment on above: Performed By: #### L IP, CMP, MDW, TROPHS, GFR, DIFF, MORPH, CBC #### [address] [address] MCH (RBC) [Entitic mass] 32.5 pg High 27.0-31.2 [facility] ([place]) Comment on above: Performed By: #### L IP, CMP, MDW, TROPHS, GFR, DIFF, MORPH, CBC #### [address] [address] MCHC 34.4 G/dL Normal 31.8-35.4 [facility] ([place]) Comment on above: Performed By: #### L IP, CMP, MDW, TROPHS, GFR, DIFF, MORPH, CBC #### [address] [address] MCV (RBC) [Entitic vol] 94.5 fL High 80.0-94.0 A [facility] ([place]) Comment on above: Performed By: #### L IP, CMP, MDW, TROPHS, GFR, DIFF, MORPH, CBC #### [address] [address] Platelet 223 10 3/mcL Normal 130-400 [facility] ([place]) Comment on above: Performed By: #### L IP, CMP, MDW, TROPHS, GFR, DIFF, MORPH, CBC #### [address] [address] Platelet mean volume (Bld) [Entitic vol] 8.4 fL Normal 7.4-10.4 [facility] ([place]) Comment on above: Performed By: #### L IP, CMP, MDW, TROPHS, GFR, DIFF, MORPH, CBC #### [address] [address] RBC 4.17 10 6/mcL Normal 4.04-6.13 [facility] ([place]) Comment on above: Performed By: #### L IP, CMP, MDW, TROPHS, GFR, DIFF, MORPH, CBC #### [facility] [address], [place] [address] WBC 16.0 10 3/mcL High 4.6-10.8 [facility] ([place]) Comment on above: Performed By: #### L IP, DIANA, REGINA, TROPHS, GFR, DIFF, MORPH, CBC #### [facility] [address], [place] [address] FT4on 07-29-2023 Free T4 [Mass/Vol] 1.19 ng/dL Normal 0.76-1.46 [facility] ([place]) Comment on above: Performed By: #### L IP, DIANA, REGINA, TROPHS, GFR, DIFF, MORPH, CBC #### [place] [id number] [place], [place] [address] LABORATORYOrdered By: Donna Reyes on 07-29-2023 Blood Glucose Testing Reason Routine (07/29/23 9:53 PM) [facility] Work Phone: Glucose [Mass/Vol] 267 mg/dL High 82 - 115 mg/dL [facility] Work Phone: LABORATORYOrdered By: Jayjay Sullivan on 07-29-2023 Blood Glucose Testing Reason Routine (07/29/23 4:30 PM) [facility] Work Phone: Glucose [Mass/Vol] 126 mg/dL High 82 - 115 mg/dL [facility] Work Phone: Blood Glucose Testing Reason Routine (07/29/23 11:36 AM) [facility] Work Phone: Glucose [Mass/Vol] 200 mg/dL High 82 - 115 mg/dL [facility] Work Phone: Blood Glucose Testing Reason Routine (07/29/23 7:50 AM) [facility] Work Phone: Glucose [Mass/Vol] 247 mg/dL High 82 - 115 mg/dL [facility] Work Phone: LABORATORYOrdered By: SYSTEM SYSTEM on 07-29-2023 Basophil, Absolute 0.1 103/mcL Normal 0.0 - 0.2 10^3/mcL AO Workflow SS Basophils/100 WBC (Bld) 0.3 % Normal 0.0 - 2.5 % AO Workflow SS Eosinophil, Absolute 0.0 103/mcL Normal 0.0 - 0 .4 10^3/mcL AO Workflow SS Eosinophils/100 WBC (Bld) 0.2 % Normal 0.0 - 7.0 % AO Workflow SS Erythrocyte distribution width (RBC) [Ratio] 13.1 % Normal 11.5 - 14.5 % AO Workflow SS Hematocrit (Bld) [Volume fraction] 39.4 % Low 42.0 - 52.0 % AO Workflow SS Hemoglobin (Bld) [Mass/Vol] 13.5 G/dL Low 14.0 - 18.0 G/dL AO Workflow SS Lymphocyte, Absolute 2.0 103/mcL Normal 0.8 - 3 .9 10^3/mcL AO Workflow SS Lymphocytes/100 WBC (Bld) 12.8 % Normal 10.0 - 50.0 % AO Workflow SS MCH (RBC) [Entitic mass] 32.5 pg High 27.0 - 31.2 pg AO Workflow SS MCHC 34.4 G/dL Normal 31.8 - 35.4 G/dL AO Workflow SS MCV (RBC) [Entitic vol] 94.5 fL High 80.0 - 94.0 fL AO Workflow SS Monocyte, Absolute 1.2 103/mcL High 0.2 - 1.0 10^3/mcL AO Workflow SS Monocytes/100 WBC (Bld) 7.5 % Normal 1.7 - 13.0 % AO Workflow SS Neutrophil, Absolute 12.7 103/mcL High 2.9 - 6 .2 10^3/mcL AO Workflow SS Neutrophils/100 WBC (Bld) 79.2 % Normal 37.0 - 80.0 % AO Workflow SS Platelet mean volume (Bld) [Entitic vol] 8.4 fL Normal 7.4 - 10.4 fL AO Workflow SS Platelets (Bld) [#/Vol] 223 103/mcL Normal 130 - 400 10^3/mcL AO Workflow SS RBC (Bld) [#/Vol] 4.17 106/mcL Normal 4.04 - 6.1 3 10^6/mcL AO Workflow SS WBC (Bld) [#/Vol] 16.0 103/mcL High 4.6 - 10.8 10^3/mcL AO Workflow SS TSHon 07-29-2023 TSH Qn 0.74 m[IU]/L Normal 0.36-3.74 [facility] ([place]) Comment on above: Performed By: #### L IP, CMP, MDW, TROPHS, GFR, DIFF, MORPH, CBC #### [place] [address] [address] .GFRon 07-28-2023 GFR 48 ml/min/1.73sqm Normal [facility] ([place]) Comment on above: Result Comment: GFR Population mean for , Non- Americans Ages 20-29 = 116 mL/min/1.73 sq.m. Ages 30-39 = 107 mL/min/1.73 sq.m. Ages 40-49 = 99 mL/min/1.73 sq.m. Ages 50-59 = 93 mL/min/1.73 sq.m. Ages 60-69 = 85 mL/min/1.73 sq.m. Ages 70+ = 75 mL/min/1.73 sq.m. Chronic Kidney Disease: Less than 60 mL/min/1.73 square meters End Stage Renal Disease: Less than 15 mL/min/1.73 square meters Performed By: #### L IP, CMP, MDW, TROPHS, GFR, DIFF, MORPH, CBC #### [address] [address] GFR Non- 40 ml/min/1.73sqm Normal [facility] ([place]) Comment on above: Result Comment: GFR Population mean for , Non- Americans Ages 20-29 = 116 mL/min/1.73 sq.m. Ages 30-39 = 107 mL/min/1.73 sq.m. Ages 40-49 = 99 mL/min/1.73 sq.m. Ages 50-59 = 93 mL/min/1.73 sq.m. Ages 60-69 = 85 mL/min/1.73 sq.m. Ages 70+ = 75 mL/min/1.73 sq.m. Chronic Kidney Disease: Less than 60 mL/min/1.73 square meters End Stage Renal Disease: Less than 15 mL/min/1.73 square meters Performed By: #### L IP, CMP, MDW, TROPHS, GFR, DIFF, MORPH, CBC #### [address] [address] GFR 31 ml/min/1.73sqm Normal [facility] ([place]) Comment on above: Result Comment: GFR Population mean for , Non- Americans Ages 20-29 = 116 mL/min/1.73 sq.m. Ages 30-39 = 107 mL/min/1.73 sq.m. Ages 40-49 = 99 mL/min/1.73 sq.m. Ages 50-59 = 93 mL/min/1.73 sq.m. Ages 60-69 = 85 mL/min/1.73 sq.m. Ages 70+ = 75 mL/min/1.73 sq.m. Chronic Kidney Disease: Less than 60 mL/min/1.73 square meters End Stage Renal Disease: Less than 15 mL/min/1.73 square meters Performed By: #### L IP, CMP, MDW, TROPHS, GFR, DIFF, MORPH, CBC #### [address] [address] GFR Non- 26 ml/min/1.73sqm [facility] ([place]) Comment on above: Result Comment: GFR Population mean for , Non- Americans Ages 20-29 = 116 mL/min/1.73 sq.m. Ages 30-39 = 107 mL/min/1.73 sq.m. Ages 40-49 = 99 mL/min/1.73 sq.m. Ages 50-59 = 93 mL/min/1.73 sq.m. Ages 60-69 = 85 mL/min/1.73 sq.m. Ages 70+ = 75 mL/min/1.73 sq.m. Chronic Kidney Disease: Less than 60 mL/min/1.73 square meters End Stage Renal Disease: Less than 15 mL/min/1.73 square meters Performed By: #### L IP, CMP, MDW, TROPHS, GFR, DIFF, MORPH, CBC #### [address] [address] .Manual Diffon 07-28-2023 Bands 2.0 % Normal 0.0-5.0 [facility] ([place]) Comment on above: Performed By: #### L IP, CMP, MDW, TROPHS, GFR, DIFF, MORPH, CBC #### [address] [address] Basophil %, Manual 0.0 % Normal 0.0-2.5 [facility] ([place]) Comment on above: Performed By: #### L IP, CMP, MDW, TROPHS, GFR, DIFF, MORPH, CBC #### [address] [address] Basophil, Abs Manual 0.0 10 3/mcL Normal 0.0-0.2 [facility] ([place]) Comment on above: Performed By: #### L IP, CMP, MDW, TROPHS, GFR, DIFF, MORPH, CBC #### [address] [address] Eosinophil %, Manual 0.0 % Normal 0.0-7.0 [facility] ([place]) Comment on above: Performed By: #### L IP, CMP, MDW, TROPHS, GFR, DIFF, MORPH, CBC #### [address] [address] Eosinophil, Abs Manual 0.0 10 3/mcL Normal 0.0-0.4 [facility] ([place]) Comment on above: Performed By: #### L IP, CMP, MDW, TROPHS, GFR, DIFF, MORPH, CBC #### [address] [address] Lymphocyte %, Manual 12.0 % Normal 10.0-50.0 [facility] ([place]) Comment on above: Performed By: #### L IP, CMP, MDW, TROPHS, GFR, DIFF, MORPH, CBC #### [address] [address] Lymphocyte, Abs Manual 3.2 10 3/mcL Normal 0.8-3.9 [facility] ([place]) Comment on above: Performed By: #### L IP, CMP, MDW, TROPHS, GFR, DIFF, MORPH, CBC #### [address] [address] Monocyte %, Manual 1.0 % Low 1.7-13.0 [facility] ([place]) Comment on above: Performed By: #### L IP, CMP, MDW, TROPHS, GFR, DIFF, MORPH, CBC #### [address] [address] Monocyte, Abs Manual 0.3 10 3/mcL Normal 0.2-1.0 [facility] ([place]) Comment on above: Performed By: #### L IP, CMP, MDW, TROPHS, GFR, DIFF, MORPH, CBC #### [address] [address] Neutrophil %, Manual 85.0 % High 37.0-80.0 [facility] ([place]) Comment on above: Performed By: #### L IP, CMP, MDW, TROPHS, GFR, DIFF, MORPH, CBC #### [address] [address] Neutrophil, Abs Manual 22.9 10 3/mcL High 2.9-6.2 [facility] ([place]) Comment on above: Performed By: #### L IP, CMP, MDW, TROPHS, GFR, DIFF, MORPH, CBC #### [address] [address] Nucleated RBC 0.0 /100 WBC Normal [facility] ([place]) Comment on above: Performed By: #### L IP, CMP, MDW, TROPHS, GFR, DIFF, MORPH, CBC #### [address] [address] .Morphon 07-28-2023 Platelet Estimate Normal Normal [facility]) Comment on above: Performed By: #### L IP, CMP, MDW, TROPHS, GFR, DIFF, MORPH, CBC #### [place] [id number] A1Con 07-28-2023 HbA1c (Bld) [Mass fraction] 10.2 % High 4.3-6.4 [facility] ([place]) Comment on above: Performed By: #### L IP, CMP, MDW, TROPHS, GFR, DIFF, MORPH, CBC #### [address] [address] BMPon 07-28-2023 BUN/Creatinine Ratio 32 ratio High 7-27 [facility] ([place]) Comment on above: Performed By: #### L IP, CMP, MDW, TROPHS, GFR, DIFF, MORPH, CBC #### [address] [address] Chloride [Moles/Vol] 110 mmol/L High 98-107 [facility] ([place]) Comment on above: Performed By: #### L IP, CMP, MDW, TROPHS, GFR, DIFF, MORPH, CBC #### [address] [address] CO2 [Moles/Vol] 22 mmol/L Low 23-31 [facility] ([place]) Comment on above: Performed By: #### L IP, CMP, MDW, TROPHS, GFR, DIFF, MORPH, CBC #### [address] [address] Creatinine [Mass/Vol] 1.70 mg/dL High 0.70-1.30 [facility] ([place]) Comment on above: Performed By: #### L IP, CMP, MDW, TROPHS, GFR, DIFF, MORPH, CBC #### [address] [address] Electrolyte Balance 12.0 mEq/L Normal 4.0-15.0 [facility] ([place]) Comment on above: Performed By: #### L IP, CMP, MDW, TROPHS, GFR, DIFF, MORPH, CBC #### [address] [address] Glucose [Mass/Vol] 78 mg/dL Low 83-110 [facility] ([place]) Comment on above: Performed By: #### L IP, CMP, MDW, TROPHS, GFR, DIFF, MORPH, CBC #### [address] [address] Potassium [Moles/Vol] 3.8 mmol/L Normal 3.5-5.1 [facility] ([place]) Comment on above: Performed By: #### L IP, CMP, MDW, TROPHS, GFR, DIFF, MORPH, CBC #### [address] [address] Sodium [Moles/Vol] 144 mmol/L Normal 136-145 [facility] ([place]) Comment on above: Performed By: #### L IP, CMP, MDW, TROPHS, GFR, DIFF, MORPH, CBC #### [address] [address] Urea nitrogen [Mass/Vol] 54 mg/dL High 7-18 [facility] ([place]) Comment on above: Performed By: #### L IP, CMP, MDW, TROPHS, GFR, DIFF, MORPH, CBC #### [address] [address] BUN/Creatinine Ratio 26 ratio Normal 7-27 [facility] ([place]) Comment on above: Order Comment: WH ILE ON INSULIN INFUSION Performed By: #### L IP, CMP, MDW, TROPHS, GFR, DIFF, MORPH, CBC #### [address] [address] BMPOrdered By: SYSTEM SYSTEM on 07-28-2023 Calcium [Mass/Vol] 9.1 mg/dL Normal 8.4-10.2 AO ADM SS Comment on above: Performed By: #### L IP, CMP, MDW, TROPHS, GFR, DIFF, MORPH, CBC #### [address] [address] Order Comment: WH ILE ON INSULIN INFUSION Chloride [Moles/Vol] 103 mmol/L Normal 98-107 AO A DM SS Comment on above: Order Comment: WH ILE ON INSULIN INFUSION Performed By: #### L IP, CMP, MDW, TROPHS, GFR, DIFF, MORPH, CBC #### [address] [address] CO2 [Moles/Vol] 24 mmol/L Normal 23-31 AO ADM SS Comment on above: Order Comment: WH ILE ON INSULIN INFUSION Performed By: #### L IP, CMP, MDW, TROPHS, GFR, DIFF, MORPH, CBC #### [address] [address] Creatinine [Mass/Vol] 2.48 mg/dL High 0.70-1.30 AO ADM SS Comment on above: Order Comment: WH ILE ON INSULIN INFUSION Performed By: #### L IP, CMP, MDW, TROPHS, GFR, DIFF, MORPH, CBC #### [address] [address] Electrolyte Balance 13.0 mEq/L Normal 4.0-15.0 AO AD M SS Comment on above: Order Comment: WH ILE ON INSULIN INFUSION Performed By: #### L IP, CMP, MDW, TROPHS, GFR, DIFF, MORPH, CBC #### [address] [address] Glucose [Mass/Vol] 461 mg/dL Critically abnormal 83-110 AO ADM SS Comment on above: Order Comment: WH ILE ON INSULIN INFUSION Performed By: #### L IP, CMP, MDW, TROPHS, GFR, DIFF, MORPH, CBC #### [address] [address] Potassium [Moles/Vol] 4.0 mmol/L Normal 3.5-5.1 AO ADM SS Comment on above: Order Comment: WH ILE ON INSULIN INFUSION Performed By: #### L IP, CMP, MDW, TROPHS, GFR, DIFF, MORPH, CBC #### [address] [address] Sodium [Moles/Vol] 140 mmol/L Normal 136-145 AO ADM SS Comment on above: Order Comment: WH ILE ON INSULIN INFUSION Performed By: #### L IP, CMP, MDW, TROPHS, GFR, DIFF, MORPH, CBC #### [address] [address] Urea nitrogen [Mass/Vol] 65 mg/dL High 7-18 AO ADM SS Comment on above: Order Comment: WH ILE ON INSULIN INFUSION Performed By: #### L IP, CMP, MDW, TROPHS, GFR, DIFF, MORPH, CBC #### [place] [id number] CBCon 07-28-2023 Erythrocyte distribution width (RBC) [Ratio] 13.1 % Normal 11.5-14.5 [facility] ([place] Comment on above: Performed By: #### L IP, CMP, MDW, TROPHS, GFR, DIFF, MORPH, CBC #### [place] [address] Hematocrit (Bld) [Volume fraction] 40.5 % Low 42.0-52.0 [facility] ([place] Comment on above: Performed By: #### L IP, CMP, MDW, TROPHS, GFR, DIFF, MORPH, CBC #### [place] [address] Hgb 14.4 G/dL Normal 14.0-18.0 [facility] ([place]) Comment on above: Performed By: #### L IP, CMP, MDW, TROPHS, GFR, DIFF, MORPH, CBC #### [address] [address] MCH (RBC) [Entitic mass] 33.2 pg High 27.0-31.2 [facility] ([place] Comment on above: Performed By: #### L IP, CMP, MDW, TROPHS, GFR, DIFF, MORPH, CBC #### [place] [address] MCHC 35.5 G/dL High 31.8-35.4 [facility] ([place]) Comment on above: Performed By: #### L IP, CMP, MDW, TROPHS, GFR, DIFF, MORPH, CBC #### [place] [id number] MCV (RBC) [Entitic vol] 93.5 fL Normal 80.0-94.0 A [facility] ([place]) Comment on above: Performed By: #### L IP, CMP, MDW, TROPHS, GFR, DIFF, MORPH, CBC #### [address] [address] Platelet 213 10 3/mcL Normal 130-400 [facility] ([place]) Comment on above: Performed By: #### L IP, CMP, MDW, TROPHS, GFR, DIFF, MORPH, CBC #### [address] [address] Platelet mean volume (Bld) [Entitic vol] 8.6 fL Normal 7.4-10.4 [facility] ([place] Comment on above: Performed By: #### L IP, CMP, MDW, TROPHS, GFR, DIFF, MORPH, CBC #### [place] [address] RBC 4.33 10 6/mcL Normal 4.04-6.13 [facility] ([place]) Comment on above: Performed By: #### L IP, CMP, MDW, TROPHS, GFR, DIFF, MORPH, CBC #### [address] [address] WBC 26.9 10 3/mcL High 4.6-10.8 [facility] ([place]) Comment on above: Performed By: #### L IP, CMP, MDW, TROPHS, GFR, DIFF, MORPH, CBC #### [address] [address] CVFLURVon 07-28-2023 FLU A PCR Negative Normal Negative [facility] [place] Comment on above: Performed By: #### L IP, CMP, MDW, TROPHS, GFR, DIFF, MORPH, CBC #### [address] [address] FLU B PCR Negative Normal Negative [facility] ([place] Comment on above: Performed By: #### L IP, CMP, MDW, TROPHS, GFR, DIFF, MORPH, CBC #### [address] [address] RSV PCR Negative Normal Negative [facility]) Comment on above: Performed By: #### L IP, DIANA, MDW, TROPHS, GFR, DIFF, MORPH, CBC #### [address] [address] SARS-CoV-2 (COVID-19) RNA LUCY+probe Ql (Unsp spec) Positive Abnormal Negative [facility] ([place] Comment on above: Result Comment: Resu lts from the Xpert Xpress CoV-2/Flu/RSV plus test should be correlated with the clinical history, epidemiological data, and other data available to the clinical evaluating the patient. Performance of the Xpert Xpress CoV-2/Flu/RSV plus test has only been established in nasopharyngeal swab specimen. Erroneous test results might occur from improper specimen collection, failure to follow the recommended sample collection, handling and storage procedures, technical error, or sample mix-up. False negative results may occur if a virus is present at a level below the analytical limit of detection. Viral nucleic acid may persist in vivo, independent of virus viability. Detection of analyte target(s) does not imply that the corresponding virus(es) are infectious or are the causative agents for clinical symptoms. Recent patient exposure to FluMist or other live attenuated influenza vaccines may cause inaccurate positive results. Performed By: #### L IP, DIANA, MDW, TROPHS, GFR, DIFF, MORPH, CBC #### [address] [address] HFPon 07-28-2023 Bili Indirect 0.3 mg/dL Normal [facility] [place] Comment on above: Performed By: #### L IP, CMP, MDW, TROPHS, GFR, DIFF, MORPH, CBC #### [address] [address] Albumin Level 2.9 G/dL Low 3.4-4.8 [facility]) Comment on above: Performed By: #### L IP, CMP, MDW, TROPHS, GFR, DIFF, MORPH, CBC #### [address] [address] Albumin/Globulin [Mass ratio] 1.0 {ratio} Low 1.1-2.5 [facility] [place] Comment on above: Performed By: #### L IP, CMP, MDW, TROPHS, GFR, DIFF, MORPH, CBC #### [address] [address] ALP [Catalytic activity/Vol] 99 U/L Normal 40-135 [facility] [place] Comment on above: Performed By: #### L IP, CMP, MDW, TROPHS, GFR, DIFF, MORPH, CBC #### [address] [address] ALT [Catalytic activity/Vol] 55 U/L Normal 16-63 [facility] [place] Comment on above: Performed By: #### L IP, CMP, MDW, TROPHS, GFR, DIFF, MORPH, CBC #### [address] [address] AST [Catalytic activity/Vol] 37 U/L Normal 10-40 [facility] [place] ([place]) Comment on above: Performed By: #### L IP, CMP, MDW, TROPHS, GFR, DIFF, MORPH, CBC #### [address] [address] Bili Direct 0.1 mg/dL Normal 0.0-0.2 [facility] [place] ([place]) Comment on above: Result Comment: Use of this assay is not recommended for patients undergoing treatment with eltrombopag due to the potential for falsely elevated results. Performed By: #### L IP, CMP, MDW, TROPHS, GFR, DIFF, MORPH, CBC #### [address] [address] Bili Total 0.4 mg/dL Normal 0.2-1.0 [facility] [place] ([place] Comment on above: Result Comment: Use of this assay is not recommended for patients undergoing treatment with eltrombopag due to the potential for falsely elevated results. Performed By: #### L IP, CMP, MDW, TROPHS, GFR, DIFF, MORPH, CBC #### [place] [address] Globulin 2.9 G/dL Normal [facility] [place] ([place] Comment on above: Performed By: #### L IP, DIANA, W, TROPHS, GFR, DIFF, MORPH, CBC #### [place] [address] [address] Total Protein 5.8 G/dL Low 6.4-8.2 [facility] [place] ([place]) Comment on above: Performed By: #### L IP, CMP, MDW, TROPHS, GFR, DIFF, MORPH, CBC #### [place] [address] [place], [place] [address] LABORATORYOrdered By: SYSTEM SYSTEM on 07-28-2023 Calcium [Mass/Vol] 8.1 mg/dL Low 8.4 - 10. 2 mg/dL AO ADM SS Chloride [Moles/Vol] 107 mmol/L Normal 98 - 10 7 mmol/L AO ADM SS CO2 [Moles/Vol] 32 mmol/L High 23 - 31 mmol/L AO ADM SS Creatinine [Mass/Vol] 1.17 mg/dL Normal 0.70 - 1.30 mg/dL AO ADM SS Electrolyte Balance 2.0 mEq/L Low 4.0 - 15 .0 mEq/L AO ADM SS GFR/1.73 sq M.predicted among blacks MDRD (S/P/Bld) [Vol rate/Area] 74 ml/min/1.73sqm Invalid Interpretation Code AO Chemistry S Comment on above: Interpretive Data: GFR Population mean for , Non- Americans Ages 20-29 = 116 mL/min/1.73 sq.m. Ages 30-39 = 107 mL/min/1.73 sq.m. Ages 40-49 = 99 mL/min/1.73 sq.m. Ages 50-59 = 93 mL/min/1.73 sq.m. Ages 60-69 = 85 mL/min/1.73 sq.m. Ages 70+ = 75 mL/min/1.73 sq.m. Chronic Kidney Disease: Less than 60 mL/min/1.73 square meters End Stage Renal Disease: Less than 15 mL/min/1.73 square meters GFR/1.73 sq M.predicted among non-blacks MDRD (S/P/Bld) [Vol rate/Area] 61 ml/min/1.73sqm Invalid Interpretation Code AO Chemistry S Comment on above: Interpretive Data: GFR Population mean for , Non- Americans Ages 20-29 = 116 mL/min/1.73 sq.m. Ages 30-39 = 107 mL/min/1.73 sq.m. Ages 40-49 = 99 mL/min/1.73 sq.m. Ages 50-59 = 93 mL/min/1.73 sq.m. Ages 60-69 = 85 mL/min/1.73 sq.m. Ages 70+ = 75 mL/min/1.73 sq.m. Chronic Kidney Disease: Less than 60 mL/min/1.73 square meters End Stage Renal Disease: Less than 15 mL/min/1.73 square meters Glucose [Mass/Vol] 256 mg/dL High 83 - 110 mg/dL AO ADM SS Potassium [Moles/Vol] 4.3 mmol/L Normal 3.5 - 5.1 mmol/L AO ADM SS Sodium [Moles/Vol] 141 mmol/L Normal 136 - 145 mmol/L AO ADM SS Urea nitrogen [Mass/Vol] 31 mg/dL High 7 - 18 mg/dL AO ADM SS Free T4 [Mass/Vol] 1.19 ng/dL Normal 0.76 - 1. 46 ng/dL AO ADM SS TSH Qn 0.74 m[IU]/L Normal 0.36 - 3.74 mcIU/mL AO ADM SS GFR/1.73 sq M.predicted among blacks MDRD (S/P/Bld) [Vol rate/Area] 31 ml/min/1.73sqm Invalid Interpretation Code AO Chemistry S Comment on above: Interpretive Data: GFR Population mean for , Non- Americans Ages 20-29 = 116 mL/min/1.73 sq.m. Ages 30-39 = 107 mL/min/1.73 sq.m. Ages 40-49 = 99 mL/min/1.73 sq.m. Ages 50-59 = 93 mL/min/1.73 sq.m. Ages 60-69 = 85 mL/min/1.73 sq.m. Ages 70+ = 75 mL/min/1.73 sq.m. Chronic Kidney Disease: Less than 60 mL/min/1.73 square meters End Stage Renal Disease: Less than 15 mL/min/1.73 square meters GFR/1.73 sq M.predicted among non-blacks MDRD (S/P/Bld) [Vol rate/Area] 26 ml/min/1.73sqm Invalid Interpretation Code AO Chemistry S Comment on above: Interpretive Data: GFR Population mean for , Non- Americans Ages 20-29 = 116 mL/min/1.73 sq.m. Ages 30-39 = 107 mL/min/1.73 sq.m. Ages 40-49 = 99 mL/min/1.73 sq.m. Ages 50-59 = 93 mL/min/1.73 sq.m. Ages 60-69 = 85 mL/min/1.73 sq.m. Ages 70+ = 75 mL/min/1.73 sq.m. Chronic Kidney Disease: Less than 60 mL/min/1.73 square meters End Stage Renal Disease: Less than 15 mL/min/1.73 square meters Albumin BCP dye [Mass/Vol] 2.9 G/dL Low 3.4 - 4.8 G/dL AO ADM SS Albumin/Globulin [Mass ratio] 1.0 {ratio} Low 1.1 - 2.5 ratio AO ADM SS ALP [Catalytic activity/Vol] 99 U/L Normal 40 - 135 U/L AO ADM SS ALT With P-5'-P [Catalytic activity/Vol] 55 U/L Normal 16 - 63 U/L AO ADM SS AST With P-5'-P [Catalytic activity/Vol] 37 U/L Normal 10 - 40 U/L AO ADM SS Bands 2.0 % Normal 0.0 - 5.0 % AO Workflow SS Basophil %, Manual 0.0 % Normal 0.0 - 2.5 % AO Wo rkflow SS Basophil, Abs Manual 0.0 103/mcL Normal 0.0 - 0 .2 10^3/mcL AO Workflow SS Bilirubin [Mass/Vol] 0.4 mg/dL Normal 0.2 - 1 .0 mg/dL AO ADM SS Comment on above: Interpretive Data: U se of this assay is not recommended for patients undergoing treatment with eltrombopag due to the potential for falsely elevated results. Bilirubin.direct [Mass/Vol] 0.1 mg/dL Normal 0.0 - 0.2 mg/dL AO ADM SS Comment on above: Interpretive Data: U se of this assay is not recommended for patients undergoing treatment with eltrombopag due to the potential for falsely elevated results. Bilirubin.direct [Mass/Vol] 0.3 mg/dL Invalid Interpretation Code AO Chemistry S Chloride [Moles/Vol] 110 mmol/L High 98 - 10 7 mmol/L AO ADM SS CO2 [Moles/Vol] 22 mmol/L Low 23 - 31 mmol/L AO ADM SS Creatinine [Mass/Vol] 1.70 mg/dL High 0.70 - 1.30 mg/dL AO ADM SS Electrolyte Balance 12.0 mEq/L Normal 4.0 - 15 .0 mEq/L AO ADM SS Eosinophil %, Manual 0.0 % Normal 0.0 - 7.0 % AO Workflow SS Eosinophils (Bld) [#/Vol] 0.0 103/mcL Normal 0.0 - 0.4 10^3/mcL AO Workflow SS Erythrocyte distribution width (RBC) [Ratio] 13.1 % Normal 11.5 - 14.5 % AO Workflow SS GFR/1.73 sq M.predicted among blacks MDRD (S/P/Bld) [Vol rate/Area] 48 ml/min/1.73sqm Invalid Interpretation Code AO Chemistry S Comment on above: Interpretive Data: GFR Population mean for , Non- Americans Ages 20-29 = 116 mL/min/1.73 sq.m. Ages 30-39 = 107 mL/min/1.73 sq.m. Ages 40-49 = 99 mL/min/1.73 sq.m. Ages 50-59 = 93 mL/min/1.73 sq.m. Ages 60-69 = 85 mL/min/1.73 sq.m. Ages 70+ = 75 mL/min/1.73 sq.m. Chronic Kidney Disease: Less than 60 mL/min/1.73 square meters End Stage Renal Disease: Less than 15 mL/min/1.73 square meters GFR/1.73 sq M.predicted among non-blacks MDRD (S/P/Bld) [Vol rate/Area] 40 ml/min/1.73sqm Invalid Interpretation Code AO Chemistry S Comment on above: Interpretive Data: GFR Population mean for , Non- Americans Ages 20-29 = 116 mL/min/1.73 sq.m. Ages 30-39 = 107 mL/min/1.73 sq.m. Ages 40-49 = 99 mL/min/1.73 sq.m. Ages 50-59 = 93 mL/min/1.73 sq.m. Ages 60-69 = 85 mL/min/1.73 sq.m. Ages 70+ = 75 mL/min/1.73 sq.m. Chronic Kidney Disease: Less than 60 mL/min/1.73 square meters End Stage Renal Disease: Less than 15 mL/min/1.73 square meters Globulin 2.9 G/dL Invalid Interpretation Code AO ADM SS Glucose [Mass/Vol] 78 mg/dL Low 83 - 110 mg/dL AO ADM SS Hematocrit (Bld) [Volume fraction] 40.5 % Low 42.0 - 52.0 % AO Workflow SS Hemoglobin (Bld) [Mass/Vol] 14.4 G/dL Normal 14.0 - 18.0 G/dL AO Workflow SS Lymphocyte %, Manual 12.0 % Normal 10.0 - 50.0 % AO Workflow SS Lymphocyte, Abs Manual 3.2 103/mcL Normal 0.8 - 3.9 10^3/mcL AO Workflow SS MCH (RBC) [Entitic mass] 33.2 pg High 27.0 - 31.2 pg AO Workflow SS MCHC 35.5 G/dL High 31.8 - 35.4 G/dL AO Workflow SS MCV (RBC) [Entitic vol] 93.5 fL Normal 80.0 - 94.0 fL AO Workflow SS Monocyte %, Manual 1.0 % Low 1.7 - 13. 0 % AO Workflow SS Monocyte, Abs Manual 0.3 103/mcL Normal 0.2 - 1 .0 10^3/mcL AO Workflow SS Neutrophil %, Manual 85.0 % High 37.0 - 80.0 % AO Workflow SS Neutrophil, Abs Manual 22.9 103/mcL High 2.9 - 6.2 10^3/mcL AO Workflow SS Nucleated RBC 0.0 /100 WBC Invalid Interpretation Code AO Workflow SS Platelet Estimate Normal *NA* (07/28/23 6:41 AM) Invalid Interpretation Code AO Workflow SS Platelet mean volume (Bld) [Entitic vol] 8.6 fL Normal 7.4 - 10.4 fL AO Workflow SS Platelets (Bld) [#/Vol] 213 103/mcL Normal 130 - 400 10^3/mcL AO Workflow SS Potassium [Moles/Vol] 3.8 mmol/L Normal 3.5 - 5.1 mmol/L AO ADM SS Protein [Mass/Vol] 5.8 G/dL Low 6.4 - 8.2 G/dL AO ADM SS RBC (Bld) [#/Vol] 4.33 106/mcL Normal 4.04 - 6.1 3 10^6/mcL AO Workflow SS Sodium [Moles/Vol] 144 mmol/L Normal 136 - 145 mmol/L AO ADM SS Urea nitrogen [Mass/Vol] 54 mg/dL High 7 - 18 mg/dL AO ADM SS Urea nitrogen/Creatinine [Mass ratio] 32 ratio High 7 - 27 ratio AO ADM SS WBC (Bld) [#/Vol] 26.9 103/mcL High 4.6 - 10.8 10^3/mcL AO Workflow SS HbA1c (Bld) [Mass fraction] 10.2 % High 4.3 - 6.4 % AO ADM SS TSH Qn 0.43 m[IU]/L Normal 0.36 - 3.74 mcIU/mL AO ADM SS LABORATORYOrdered By: Chapo Merlos on 07-28-2023 Blood Glucose Interventions Administered agent to decrease blood sugar (07/28/23 11:44 AM) [facility] Work Phone: Blood Glucose Interventions Administered food/juice 2 (07/28/23 7:33 AM) [facility] Work Phone: Comment on above: Result Comment: 240m l of apple juice LABORATORYOrdered By: Gary Long on 07-28-2023 FLUAV RNA LUCY+probe Ql (Resp) Negative (07/28/23 1:57 AM) Normal Negative AO Auto Urine SS FLUBV RNA LUCY+probe Ql (Resp) Negative (07/28/23 1:57 AM) Normal Negative AO Auto Urine SS pH (BldV) 7.30 [pH] Low 7.31 - 7.41 AO Blood Gas SS RSV RNA LUCY+probe Ql (Resp) Negative (07/28/23 1:57 AM) Normal Negative AO Auto Urine SS SARS-CoV-2 (COVID-19) RNA LUCY+probe Ql (Resp) Positive 9 *ABN* (07/28/23 1:57 AM) Invalid Interpretation Code Negative AO Auto Urine SS Comment on above: Interpretive Data: R esults from the Xpert Xpress CoV-2/Flu/RSV plus test should be correlated with the clinical history, epidemiological data, and other data available to the clinical evaluating the patient. Performance of the Xpert Xpress CoV-2/Flu/RSV plus test has only been established in nasopharyngeal swab specimen. Erroneous test results might occur from improper specimen collection, failure to follow the recommended sample collection, handling and storage procedures, technical error, or sample mix-up. False negative results may occur if a virus is present at a level below the analytical limit of detection. Viral nucleic acid may persist in vivo, independent of virus viability. Detection of analyte target(s) does not imply that the corresponding virus(es) are infectious or are the causative agents for clinical symptoms. Recent patient exposure to FluMist or other live attenuated influenza vaccines may cause inaccurate positive results. LIPIDOrdered By: Gary solis on 07-28-2023 Cholesterol [Mass/Vol] 110 mg/dL Normal 0-200 AO ADM SS Comment on above: Interpretive Data: C holesterol Reference Interval: Less than 200 Desirable 200-239 Borderline high risk 240 and above High risk Result Comment: Chol esterol Reference Interval: Less than 200 Desirable 200-239 Borderline high risk 240 and above High risk Performed By: #### L RUSSELL, DIANA, REGINA, TROPHS, GFR, DIFF, MORPH, CBC #### [place] [id number] [place], [place] [address] Cholesterol in HDL [Mass/Vol] 46 mg/dL Normal 40-60 AO ADM SS Comment on above: Performed By: #### L RUSSELL, REGINA ORTIZ, TROPHS, GFR, DIFF, MORPH, CBC #### [place] [address] [place], [place] [address] Cholesterol in LDL [Mass/Vol] 47 mg/dL Normal 0-130 AO ADM SS Comment on above: Performed By: #### L DIANA WELLS, REGINA, TROPHS, GFR, DIFF, MORPH, CBC #### [place] [id number] [place], [place] [address] Triglyceride [Mass/Vol] 83 mg/dL Normal 0-150 A O ADM SS Comment on above: Interpretive Data: T riglyceride Reference Interval: Less than 150 Normal 150-199 Borderline high risk 200-499 High risk 500 or higher Very high risk Result Comment: Trig lyceride Reference Interval: Less than 150 Normal 150-199 Borderline high risk 200-499 High risk 500 or higher Very high risk Performed By: #### L IP, CMP, MDW, TROPHS, GFR, DIFF, MORPH, CBC #### [place] [address] [address] Laboratory - Chemistry and C hemistry - challengeOrdered By: SYSTEM SYSTEM on 07-28-2023 Urea nitrogen/Creatinine [Mass ratio] 26 ratio Normal 7 - 27 ratio AO ADM SS MGOrdered By: [employer] SYSTEM on 07-28-2023 Magnesium [Mass/Vol] 2.5 mg/dL High 1.8-2.4 AO A DM SS Comment on above: Order Comment: WH ILE ON INSULIN INFUSION Performed By: #### L IP, CMP, MDW, TROPHS, GFR, DIFF, MORPH, CBC #### [place] [address] PHOSOrdered By: SYSTEM SYSTE [employer] on 07-28-2023 Phosphate [Mass/Vol] 4.0 mg/dL Normal 2.3-4.1 AO A DM SS Comment on above: Order Comment: WH ILE ON INSULIN INFUSION Performed By: #### L IP, CMP, MDW, TROPHS, GFR, DIFF, MORPH, CBC #### [place] [address] [address] PHVon 07-28-2023 pH Venous 7.30 Low 7.31-7.41 [facility] [place] ([place]) Comment on above: Performed By: #### L IP, CMP, MDW, TROPHS, GFR, DIFF, MORPH, CBC #### [address] [address] TSHon 07-28-2023 TSH Qn 0.43 m[IU]/L Normal 0.36-3.74 [facility] [place] ([place]) Comment on above: Performed By: #### L IP, CMP, MDW, TROPHS, GFR, DIFF, MORPH, CBC #### [address] [address] XR CHEST 1 VIEWon 07-28-2023 XR CHEST 1 VIEW ORIGINAL EXAMINATION: ONE XRAY VIEW OF THE CHEST 07/28/2023 6:35 am COMPARISON: Chest x-ray on 04/03/2019 HISTORY: ORDERING SYSTEM PROVIDED HISTORY: Reason for Exam: leukocytosis FINDINGS: The heart size is normal. Lungs have emphysematous architecture. There is no acute lung infiltrate or edema. No pneumothorax or pleural fluid is present. There is no acute skeletal abnormality. IMPRESSION: Emphysema. No acute findings. Interpreted by: Murray Slater MD Preliminary Report By: Murray Slater MD Electronically signed By Murray Slater MD Dictated Date: 07/28/2023 6:43:07 AM Prelim Date: 07/28/2023 6:44:20 AM Sign Date: 07/28/2023 6:44:20 AM Ordering Provider: WINSOME ARRIETA [facility] ([place]) .GFRon 07-27-2023 GFR 27 ml/min/1.73sqm Normal [facility] [place] ([place]) Comment on above: Result Comment: GFR Population mean for , Non- Americans Ages 20-29 = 116 mL/min/1.73 sq.m. Ages 30-39 = 107 mL/min/1.73 sq.m. Ages 40-49 = 99 mL/min/1.73 sq.m. Ages 50-59 = 93 mL/min/1.73 sq.m. Ages 60-69 = 85 mL/min/1.73 sq.m. Ages 70+ = 75 mL/min/1.73 sq.m. Chronic Kidney Disease: Less than 60 mL/min/1.73 square meters End Stage Renal Disease: Less than 15 mL/min/1.73 square meters Performed By: #### L IP, CMP, MDW, TROPHS, GFR, DIFF, MORPH, CBC #### [address] [address] GFR Non- 22 ml/min/1.73sqm Normal [facility] [place] ([place]) Comment on above: Result Comment: GFR Population mean for , Non- Americans Ages 20-29 = 116 mL/min/1.73 sq.m. Ages 30-39 = 107 mL/min/1.73 sq.m. Ages 40-49 = 99 mL/min/1.73 sq.m. Ages 50-59 = 93 mL/min/1.73 sq.m. Ages 60-69 = 85 mL/min/1.73 sq.m. Ages 70+ = 75 mL/min/1.73 sq.m. Chronic Kidney Disease: Less than 60 mL/min/1.73 square meters End Stage Renal Disease: Less than 15 mL/min/1.73 square meters Performed By: #### L IP, CMP, MDImtiaz, TROPHS, GFR, DIFF, MORPH, CBC #### [address] [address] GFR 23 ml/min/1.73sqm Normal [facility] [place] ([place]) Comment on above: Result Comment: GFR Population mean for , Non- Americans Ages 20-29 = 116 mL/min/1.73 sq.m. Ages 30-39 = 107 mL/min/1.73 sq.m. Ages 40-49 = 99 mL/min/1.73 sq.m. Ages 50-59 = 93 mL/min/1.73 sq.m. Ages 60-69 = 85 mL/min/1.73 sq.m. Ages 70+ = 75 mL/min/1.73 sq.m. Chronic Kidney Disease: Less than 60 mL/min/1.73 square meters End Stage Renal Disease: Less than 15 mL/min/1.73 square meters Performed By: #### L IP, CMP, MDW, TROPHS, GFR, DIFF, MORPH, CBC #### [address] [address] GFR Non- 19 ml/min/1.73sqm Normal [facility] [place] ([place] Comment on above: Result Comment: GFR Population mean for , Non- Americans Ages 20-29 = 116 mL/min/1.73 sq.m. Ages 30-39 = 107 mL/min/1.73 sq.m. Ages 40-49 = 99 mL/min/1.73 sq.m. Ages 50-59 = 93 mL/min/1.73 sq.m. Ages 60-69 = 85 mL/min/1.73 sq.m. Ages 70+ = 75 mL/min/1.73 sq.m. Chronic Kidney Disease: Less than 60 mL/min/1.73 square meters End Stage Renal Disease: Less than 15 mL/min/1.73 square meters Performed By: #### L IP, CMP, MDW, TROPHS, GFR, DIFF, MORPH, CBC #### [address] [address] .MDWon 07-27-2023 Monocyte Distribution Width 18.67 Normal 0.00-20.00 [facility] [place] ([place] Comment on above: Result Comment: For ED adult patients suspected of sepsis, MDW<=20.0 does not rule out sepsis or risk of sepsis Performed By: #### L IP, CMP, MDW, TROPHS, GFR, DIFF, MORPH, CBC #### [address] [address] .Manual Diffon 07-27-2023 Bands 3.0 % Normal 0.0-5.0 [facility] [place] ([place] Comment on above: Performed By: #### L IP, CMP, MDW, TROPHS, GFR, DIFF, MORPH, CBC #### [address] [address] Basophil %, Manual 0.0 % Normal 0.0-2.5 [facility] ([place]) Comment on above: Performed By: #### L IP, CMP, MDW, TROPHS, GFR, DIFF, MORPH, CBC #### [address] [address] Basophil, Abs Manual 0.0 10 3/mcL Normal 0.0-0.2 [facility] ([place]) Comment on above: Performed By: #### L IP, CMP, MDW, TROPHS, GFR, DIFF, MORPH, CBC #### [address] [address] Eosinophil %, Manual 0.0 % Normal 0.0-7.0 [facility] ([place]) Comment on above: Performed By: #### L IP, CMP, MDW, TROPHS, GFR, DIFF, MORPH, CBC #### [address] [address] Eosinophil, Abs Manual 0.0 10 3/mcL Normal 0.0-0.4 [facility] [place] ([place] Comment on above: Performed By: #### L IP, CMP, MDW, TROPHS, GFR, DIFF, MORPH, CBC #### [address] [address] Lymphocyte %, Manual 5.0 % Low 10.0-50.0 [facility] ([place]) Comment on above: Performed By: #### L IP, CMP, MDW, TROPHS, GFR, DIFF, MORPH, CBC #### [address] [address] Lymphocyte, Abs Manual 1.4 10 3/mcL Normal 0.8-3.9 [facility] [place] ([place] Comment on above: Performed By: #### L IP, CMP, MDW, TROPHS, GFR, DIFF, MORPH, CBC #### [address] [address] Monocyte %, Manual 2.0 % Normal 1.7-13.0 [facility] ([place]) Comment on above: Performed By: #### L IP, CMP, MDW, TROPHS, GFR, DIFF, MORPH, CBC #### [address] [address] Monocyte, Abs Manual 0.6 10 3/mcL Normal 0.2-1.0 [facility] ([place]) Comment on above: Performed By: #### L IP, CMP, MDW, TROPHS, GFR, DIFF, MORPH, CBC #### [address] [address] Neutrophil %, Manual 90.0 % High 37.0-80.0 [facility] ([place]) Comment on above: Performed By: #### L IP, CMP, MDW, TROPHS, GFR, DIFF, MORPH, CBC #### [address] [address] Neutrophil, Abs Manual 26.3 10 3/mcL High 2.9-6.2 [facility] [place] ([place] Comment on above: Performed By: #### L IP, CMP, MDW, TROPHS, GFR, DIFF, MORPH, CBC #### [address] [address] Nucleated RBC 0.0 /100 WBC Normal [facility] [place] ([place] Comment on above: Performed By: #### L IP, CMP, MDW, TROPHS, GFR, DIFF, MORPH, CBC #### [place] [address] .Morphon 07-27-2023 Platelet Estimate Normal Normal [facility]) Comment on above: Performed By: #### L IP, CMP, MDW, TROPHS, GFR, DIFF, MORPH, CBC #### [place] [address] .Urinalysis Microscopic (AO) on 07-27-2023 UA CA Ox Crystal Trace Normal [facility] [place] ([place] Comment on above: Performed By: #### L IP, CMP, MDW, TROPHS, GFR, DIFF, MORPH, CBC #### [place] [address] UA RBC 5-10 Abnormal None Seen [facility] [place] ([place] Comment on above: Performed By: #### L IP, CMP, MDW, TROPHS, GFR, DIFF, MORPH, CBC #### [address] [address] UA Squam Epithelial None Seen Normal None Seen [facility] ([place]) Comment on above: Performed By: #### L IP, CMP, MDW, TROPHS, GFR, DIFF, MORPH, CBC #### [address] [address] UA WBC 0-5 Abnormal None Seen [facility] [place] ([place] Comment on above: Performed By: #### L IP, CMP, MDW, TROPHS, GFR, DIFF, MORPH, CBC #### [place] [address] BMPon 07-27-2023 BUN/Creatinine Ratio 22 ratio Normal 7-27 [facility] ([place]) Comment on above: Performed By: #### L IP, CMP, MDW, TROPHS, GFR, DIFF, MORPH, CBC #### [address] [address] Calcium [Mass/Vol] 8.3 mg/dL Low 8.4-10.2 [facility] ([place]) Comment on above: Performed By: #### L IP, CMP, MDW, TROPHS, GFR, DIFF, MORPH, CBC #### [address] [address] Chloride [Moles/Vol] 95 mmol/L Low 98-107 [facility] ([place]) Comment on above: Performed By: #### L IP, CMP, MDW, TROPHS, GFR, DIFF, MORPH, CBC #### [address] [address] CO2 [Moles/Vol] 18 mmol/L Low 23-31 [facility] [place] [facility] ([place] Comment on above: Performed By: #### L IP, CMP, MDW, TROPHS, GFR, DIFF, MORPH, CBC #### [address] [address] Creatinine [Mass/Vol] 2.85 mg/dL High 0.70-1.30 [facility] ([place]) Comment on above: Performed By: #### L IP, CMP, MDW, TROPHS, GFR, DIFF, MORPH, CBC #### [address] [address] Electrolyte Balance 19.0 mEq/L High 4.0-15.0 [facility] ([place]) Comment on above: Performed By: #### L IP, CMP, MDW, TROPHS, GFR, DIFF, MORPH, CBC #### [address] [address] Glucose [Mass/Vol] 729 mg/dL Critically abnormal 83-110 [facility] [place] ([place] Comment on above: Performed By: #### L IP, CMP, MDW, TROPHS, GFR, DIFF, MORPH, CBC #### [address] [address] Potassium [Moles/Vol] 4.0 mmol/L Normal 3.5-5.1 [facility] ([place]) Comment on above: Performed By: #### L RUSSELL, DIANA, W, TROPHS, GFR, DIFF, MORPH, CBC #### [address] [address] Sodium [Moles/Vol] 132 mmol/L Low 136-145 [facility] ([place] Comment on above: Performed By: #### L IP, DIANA, W, TROPHS, GFR, DIFF, MORPH, CBC #### [address] [address] Urea nitrogen [Mass/Vol] 64 mg/dL High 7-18 [facility] [place] ([place] Comment on above: Performed By: #### L RUSSELL, DIANA, W, TROPHS, GFR, DIFF, MORPH, CBC #### [address] [address] CBCon 07-27-2023 Erythrocyte distribution width (RBC) [Ratio] 13.4 % Normal 11.5-14.5 [facility] [place] ([place] Comment on above: Performed By: #### L RUSSELL, DIANA, W, TROPHS, GFR, DIFF, MORPH, CBC #### [address] [address] Hematocrit (Bld) [Volume fraction] 45.8 % Normal 42.0-52.0 [facility] [place] ([place] Comment on above: Performed By: #### L RUSSELL, DIANA, W, TROPHS, GFR, DIFF, MORPH, CBC #### [address] [address] Hgb 15.2 G/dL Normal 14.0-18.0 [facility] [place] ([place] Comment on above: Performed By: #### L RUSSELL, DIANA, W, TROPHS, GFR, DIFF, MORPH, CBC #### [address] [address] MCH (RBC) [Entitic mass] 32.9 pg High 27.0-31.2 [facility] [place] ([place] Comment on above: Performed By: #### L IP, CMP, MDW, TROPHS, GFR, DIFF, MORPH, CBC #### [address] [address] MCHC 33.2 G/dL Normal 31.8-35.4 [facility] [place] ([place] Comment on above: Performed By: #### L IP, CMP, MDW, TROPHS, GFR, DIFF, MORPH, CBC #### [address] [address] MCV (RBC) [Entitic vol] 98.9 fL High 80.0-94.0 A [facility] ([place]) Comment on above: Performed By: #### L IP, CMP, MDW, TROPHS, GFR, DIFF, MORPH, CBC #### [address] [address] Platelet 273 10 3/mcL Normal 130-400 [facility] ([place]) Comment on above: Performed By: #### L IP, CMP, MDW, TROPHS, GFR, DIFF, MORPH, CBC #### [place] [address] Platelet mean volume (Bld) [Entitic vol] 8.8 fL Normal 7.4-10.4 [facility] ([place]) Comment on above: Performed By: #### L IP, CMP, MDW, TROPHS, GFR, DIFF, MORPH, CBC #### [address] [address] RBC 4.64 10 6/mcL Normal 4.04-6.13 [facility] ([place]) Comment on above: Performed By: #### L IP, CMP, MDW, TROPHS, GFR, DIFF, MORPH, CBC #### [address] [address] WBC 29.2 10 3/mcL High 4.6-10.8 [facility] ([place]) Comment on above: Performed By: #### L IP, CMP, MDW, TROPHS, GFR, DIFF, MORPH, CBC #### [address] [id number] CMPon 07-27-2023 Albumin Level 3.6 G/dL Normal 3.4-4.8 [facility] ([place] Comment on above: Performed By: #### L IP, CMP, MDW, TROPHS, GFR, DIFF, MORPH, CBC #### [address] [address] Albumin/Globulin [Mass ratio] 1.0 {ratio} Low 1.1-2.5 [facility] ([place] Comment on above: Performed By: #### L IP, CMP, MDW, TROPHS, GFR, DIFF, MORPH, CBC #### [address] [address] ALP [Catalytic activity/Vol] 137 U/L High 40-135 [facility] ([place] Comment on above: Performed By: #### L IP, CMP, MDW, TROPHS, GFR, DIFF, MORPH, CBC #### [address] [address] ALT [Catalytic activity/Vol] 64 U/L High 16-63 [facility] ([place] Comment on above: Performed By: #### L IP, CMP, MDW, TROPHS, GFR, DIFF, MORPH, CBC #### [address] [address] AST [Catalytic activity/Vol] 48 U/L High 10-40 [facility] ([place] Comment on above: Performed By: #### L IP, CMP, MDW, TROPHS, GFR, DIFF, MORPH, CBC #### [address] [address] Bili Total 0.8 mg/dL Normal 0.2-1.0 [facility] ([place] Comment on above: Result Comment: Use of this assay is not recommended for patients undergoing treatment with eltrombopag due to the potential for falsely elevated results. Performed By: #### L IP, CMP, MDW, TROPHS, GFR, DIFF, MORPH, CBC #### [address] [address] BUN/Creatinine Ratio 21 ratio Normal 7-27 [facility] ([place]) Comment on above: Performed By: #### L IP, CMP, MDW, TROPHS, GFR, DIFF, MORPH, CBC #### [address] [address] Calcium [Mass/Vol] 9.1 mg/dL Normal 8.4-10.2 [facility] ([place]) Comment on above: Performed By: #### L IP, CMP, MDW, TROPHS, GFR, DIFF, MORPH, CBC #### [address] [address] Chloride [Moles/Vol] 88 mmol/L Low 98-107 [facility] ([place] Comment on above: Performed By: #### L IP, CMP, MDW, TROPHS, GFR, DIFF, MORPH, CBC #### [address] [address] CO2 [Moles/Vol] 19 mmol/L Low 23-31 [facility] ([place] Comment on above: Performed By: #### L IP, CMP, MDW, TROPHS, GFR, DIFF, MORPH, CBC #### [address] [address] Creatinine [Mass/Vol] 3.24 mg/dL High 0.70-1.30 [facility] ([place]) Comment on above: Performed By: #### L IP, CMP, MDW, TROPHS, GFR, DIFF, MORPH, CBC #### [address] [address] Electrolyte Balance 18.0 mEq/L High 4.0-15.0 [facility] ([place]) Comment on above: Performed By: #### L IP, CMP, MDW, TROPHS, GFR, DIFF, MORPH, CBC #### [address] [address] Globulin 3.5 G/dL Normal [facility] ([place] Comment on above: Performed By: #### L IP, CMP, MDW, TROPHS, GFR, DIFF, MORPH, CBC #### [address] [address] Glucose [Mass/Vol] mg/dL Critically abnormal 83-110 [facility] ([place] Comment on above: Performed By: #### L IP, CMP, MDW, TROPHS, GFR, DIFF, MORPH, CBC #### [address] [address] Potassium [Moles/Vol] 5.6 mmol/L High 3.5-5.1 [facility] ([place] Comment on above: Performed By: #### L IP, CMP, MDW, TROPHS, GFR, DIFF, MORPH, CBC #### [address] [address] Sodium [Moles/Vol] 125 mmol/L Low 136-145 [facility] ([place] Comment on above: Performed By: #### L IP, CMP, MDW, TROPHS, GFR, DIFF, MORPH, CBC #### [address] [address] Total Protein 7.1 G/dL Normal 6.4-8.2 [facility] ([place] Comment on above: Performed By: #### L IP, CMP, MDW, TROPHS, GFR, DIFF, MORPH, CBC #### [address] [address] Urea nitrogen [Mass/Vol] 68 mg/dL High 7-18 [facility] ([place] Comment on above: Performed By: #### L IP, CMP, MDW, TROPHS, GFR, DIFF, MORPH, CBC #### [address] [address] [address] ABDOMEN/PELVIS W/O CONTRA STon 07-27-2023 CT ABDOMEN/PELVIS W/O CONTRAST ORIGINAL EXAMINATION: CT OF THE ABDOMEN AND PELVIS WITHOUT CONTRAST07/27/2023 10:59 pm COMPARISON: None HISTORY: ORDERING SYSTEM PROVIDED HISTORY: Reason for Exam: Abdominal pain. Weakness and vomiting x3 days. FINDINGS: Left greater than right basilar atelectasis and/or scarring. Paraseptal emphysematous changes. There is no visible pleural or pericardial effusion. The heart is normal in size. The liver, spleen, adrenal glands, and pancreas are within normal limits. The gallbladder is not visualized and may be contracted or surgically absent. The kidneys are grossly symmetric in size. Nonspecific perinephric fat stranding. Bilateral renal cysts are visualized, largest on the right measures up to 6.6 cm, largest on the left measures up to 4.3 cm. There is a hyperdense left renal cortical cyst measuring 1.2 cm (series 2, image 43), findings may represent a hemorrhagic or proteinaceous cyst. Other subcentimeter renal cortical hypodensities are too small to characterize but may represent cysts. Grade 3 hydroureteronephrosis noted bilaterally, with a distended urinary bladder, suggestive of urinary retention versus outlet obstruction.. No urinary calculus visualized. The prostate is mildly enlarged. Dystrophic calcifications are noted within the prostate. The large and small bowel demonstrate no obstruction. The appendix is not visualized. There is no pericecal inflammation. Diverticula are noted within the descending colon without evidence of diverticulitis. No free intraperitoneal fluid or gas is identified. The aorta is normal in caliber. No abdominopelvic lymphadenopathy. No acute fracture. Sclerotic appearance of the lateral right 6th rib. Mild anterolisthesis of L4 on L5 likely on a degenerative basis. Mild degenerative changes are present throughout the spine. No acute soft tissue abnormality. Small left fat containing inguinal hernia. There is a small right inguinal hernia containing fat and fluid. Metallic fragment seen in the proximal left anterior thigh musculature, correlate with prior trauma/surgery. IMPRESSION: Grade 3 hydroureteronephrosis with a distended urinary bladder concerning for obstructive uropathy without visible calculus, differentials including bladder outlet obstruction and urinary retention. Other incidental findings as above. I have personally reviewed the images of this examination and edited the resident's findings and interpretation. Interpreted by: Jefferson Oconnor Preliminary Report By: Chau Kiran Electronically signed By Jefferson Oconnor Dictated Date: 07/27/2023 11:04:39 PM Prelim Date: 07/27/2023 11:23:11 PM Sign Date: 07/27/2023 11:34:46 PM Ordering Provider: YULIET Jules [facility] ([place]) LABORATORYOrdered By: Gary Long on 07-27-2023 pH (BldV) 7.21 [pH] Low 7.31 - 7.41 AO Blood Gas SS Appearance (U) Clear (07/27/23 8:23 PM) Normal Clear AO Auto Urine SS Bilirubin Ql (U) Negative (07/27/23 8:23 PM) Normal Negative AO Auto Urine SS Calcium oxalate crystals LM.HPF (Urine sed) [#/Area] Trace /HPF Normal AO Auto Urine SS Color (U) Yellow (07/27/23 8:23 PM) Normal AO Auto Urine SS Glucose Test strip (U) [Mass/Vol] 500 mg/dL Invalid Interpretation Code Negative AO Auto Urine SS Hemoglobin Auto test strip (U) [Mass/Vol] Moderate *ABN* (07/27/23 8:23 PM) Invalid Interpretation Code Negative AO Auto Urine SS Ketones Ql (U) 80 mg/dL Invalid Interpretation Code Negative AO Auto Urine SS UA Leuk Est Negative (07/27/23 8:23 PM) Normal Negative AO Auto Urine SS UA Nitrite Negative (07/27/23 8:23 PM) Normal Negative AO Auto Urine SS UA pH 5.5 (07/27/23 8:23 PM) Normal 5.0 - 8.0 AO Auto Urine SS UA Protein Negative Normal Negative AO Auto Urine SS UA RBC 5-10 /HPF Invalid Interpretation Code None Seen AO Auto Urine SS UA Spec Grav 1.015 (07/27/23 8:23 PM) Normal 1.015-1.025 AO Auto Urine SS UA Specimen Type Straight Cath (07/27/23 8:23 PM) Normal AO Auto Urine SS UA Squam Epithelial None Seen /HPF Normal None Seen A O Auto Urine SS UA Urobilinogen 0.2 E.U./dL Normal 0.2-1.0 AO Auto Urine SS WBC LM.HPF (Urine sed) [#/Area] 0-5 /HPF Invalid Interpretation Code None Seen AO Auto Urine SS LABORATORYOrdered By: Swapnil Saldivar on 07-27-2023 Blood Glucose, Capillary Out of Range Critical High (07/27/23 9:25 PM) [facility] Work Phone: LABORATORYOrdered By: SYSTEM SYSTEM on 07-27-2023 Albumin BCP dye [Mass/Vol] 3.6 G/dL Normal 3.4 - 4.8 G/dL AO ADM SS Albumin/Globulin [Mass ratio] 1.0 {ratio} Low 1.1 - 2.5 ratio AO ADM SS ALP [Catalytic activity/Vol] 137 U/L High 40 - 135 U/L AO ADM SS ALT With P-5'-P [Catalytic activity/Vol] 64 U/L High 16 - 63 U/L AO ADM SS AST With P-5'-P [Catalytic activity/Vol] 48 U/L High 10 - 40 U/L AO ADM SS Bands 3.0 % Normal 0.0 - 5.0 % AO Workflow SS Basophil %, Manual 0.0 % Normal 0.0 - 2.5 % AO Wo rkflow SS Basophil, Abs Manual 0.0 103/mcL Normal 0.0 - 0 .2 10^3/mcL AO Workflow SS Bilirubin [Mass/Vol] 0.8 mg/dL Normal 0.2 - 1 .0 mg/dL AO ADM SS Comment on above: Interpretive Data: U se of this assay is not recommended for patients undergoing treatment with eltrombopag due to the potential for falsely elevated results. Eosinophil %, Manual 0.0 % Normal 0.0 - 7.0 % AO Workflow SS Eosinophils (Bld) [#/Vol] 0.0 103/mcL Normal 0.0 - 0.4 10^3/mcL AO Workflow SS Erythrocyte distribution width (RBC) [Ratio] 13.4 % Normal 11.5 - 14.5 % AO Workflow SS Globulin 3.5 G/dL Invalid Interpretation Code AO ADM SS Hematocrit (Bld) [Volume fraction] 45.8 % Normal 42.0 - 52.0 % AO Workflow SS Hemoglobin (Bld) [Mass/Vol] 15.2 G/dL Normal 14.0 - 18.0 G/dL AO Workflow SS Lipase [Catalytic activity/Vol] 20 U/L Normal 16 - 77 U/L AO ADM SS Lymphocyte %, Manual 5.0 % Low 10.0 - 50.0 % AO Workflow SS Lymphocyte, Abs Manual 1.4 103/mcL Normal 0.8 - 3.9 10^3/mcL AO Workflow SS MCH (RBC) [Entitic mass] 32.9 pg High 27.0 - 31.2 pg AO Workflow SS MCHC 33.2 G/dL Normal 31.8 - 35.4 G/dL AO Workflow SS MCV (RBC) [Entitic vol] 98.9 fL High 80.0 - 94.0 fL AO Workflow SS Monocyte %, Manual 2.0 % Normal 1.7 - 13. 0 % AO Workflow SS Monocyte distribution width Auto (Bld) [Entitic vol] 18.67 1 Normal 0.00 - 20.00 AO Workflow SS Comment on above: Result Comment: For ED adult patients suspected of sepsis, MDW<=20.0 does not rule out sepsis or risk of sepsis Monocyte, Abs Manual 0.6 103/mcL Normal 0.2 - 1 .0 10^3/mcL AO Workflow SS Neutrophil %, Manual 90.0 % High 37.0 - 80.0 % AO Workflow SS Neutrophil, Abs Manual 26.3 103/mcL High 2.9 - 6.2 10^3/mcL AO Workflow SS Nucleated RBC 0.0 /100 WBC Invalid Interpretation Code AO Workflow SS Platelet Estimate Normal *NA* (07/27/23 8:23 PM) Invalid Interpretation Code AO Workflow SS Platelet mean volume (Bld) [Entitic vol] 8.8 fL Normal 7.4 - 10.4 fL AO Workflow SS Platelets (Bld) [#/Vol] 273 103/mcL Normal 130 - 400 10^3/mcL AO Workflow SS Protein [Mass/Vol] 7.1 G/dL Normal 6.4 - 8.2 G/dL AO ADM SS RBC (Bld) [#/Vol] 4.64 106/mcL Normal 4.04 - 6.1 3 10^6/mcL AO Workflow SS Troponin I.cardiac DL <= 0.01 ng/mL [Mass/Vol] 43 ng/L Normal 0 - 76 ng/L AO ADM SS Comment on above: Interpretive Data: H igh Sensitive Troponin I Reference Ranges: Female: 0-51 ng/L Male: 0-76 ng/L Testing performed on [employer] using a homogeneous sandwich chemiluminescent immunoassay based on [employer] Interventional technology. WBC (Bld) [#/Vol] 29.2 103/mcL High 4.6 - 10.8 10^3/mcL AO Workflow SS LIPon 07-27-2023 Lipase Level 20 U/L Normal 16-77 [facility] ([place]) Comment on above: Performed By: #### L RUSSELL, DIANA, REGINA, TROPHS, GFR, DIFF, MORPH, CBC #### [address] [place], [place] [address] PHVon 07-27-2023 pH Venous 7.21 Low 7.31-7.41 [facility] ([place]) Comment on above: Performed By: #### L RUSSELL, DIANA, MDW, TROPHS, GFR, DIFF, MORPH, CBC #### [address] [address] TROPHSon 07-27-2023 High Sensitivity Troponin I 43 ng/L Normal 0-76 [facility] ([place] Comment on above: Result Comment: High Sensitive Troponin I Reference Ranges: Female: 0-51 ng/L Male: 0-76 ng/L Testing performed on [employer] using a homogeneous sandwich chemiluminescent immunoassay based on [employer] Interventional technology. Performed By: #### L RUSSELL, DIANA, REGINA, TROPHS, GFR, DIFF, MORPH, CBC #### [address] [address] UAon 07-27-2023 Color (U) Yellow Normal [facility] ([place] Comment on above: Performed By: #### L RUSSELL, DIANA, REGINA, TROPHS, GFR, DIFF, MORPH, CBC #### [address] [address] Glucose (U) [Mass/Vol] 500 mg/dL Abnormal Negative [facility] ([place]) Comment on above: Performed By: #### L RUSSELL, DIANA, REGINA, TROPHS, GFR, DIFF, MORPH, CBC #### [address] [address] Ketones Ql (U) 80 mg/dL Abnormal Negative [facility] ([place] Comment on above: Performed By: #### L RUSSELL, DIANA, REGINA, TROPHS, GFR, DIFF, MORPH, CBC #### [address] [address] UA Appear Clear Normal Clear [facility] ([place] Comment on above: Performed By: #### L RUSSELL, DIANA, REGINA, TROPHS, GFR, DIFF, MORPH, CBC #### [address] [address] UA Blood Moderate Abnormal Negative [facility] ([place] Comment on above: Performed By: #### L RUSSELL, DIANA, REGINA, TROPHS, GFR, DIFF, MORPH, CBC #### [address] [address] UA Leuk Est Negative Normal Negative [facility] ([place] Comment on above: Performed By: #### L IP, CMP, MDW, TROPHS, GFR, DIFF, MORPH, CBC #### [address] [address] UA Nitrite Negative Normal Negative [facility] ([place] Comment on above: Performed By: #### L IP, CMP, MDW, TROPHS, GFR, DIFF, MORPH, CBC #### [address] [address] UA pH 5.5 Normal 5.0 - 8.0 [facility] ([place] Comment on above: Performed By: #### L IP, CMP, MDW, TROPHS, GFR, DIFF, MORPH, CBC #### [address] [address] UA Protein Negative Normal Negative [facility] ([place] Comment on above: Performed By: #### L IP, CMP, MDW, TROPHS, GFR, DIFF, MORPH, CBC #### [address] [address] UA Spec Grav 1.015 Normal 1.015-1.025 [facility] ([place] Comment on above: Performed By: #### L IP, CMP, MDW, TROPHS, GFR, DIFF, MORPH, CBC #### [address] [address] UA Specimen Type Straight Cath Normal [facility] ([place]) Comment on above: Performed By: #### L IP, CMP, MDW, TROPHS, GFR, DIFF, MORPH, CBC #### [address] [address] UA Urobilinogen 0.2 E.U./dL Normal 0.2-1.0 [facility] ([place] Comment on above: Performed By: #### L IP, CMP, MDW, TROPHS, GFR, DIFF, MORPH, CBC #### [address] [address] Urobilinogen (U) [Mass/Vol] Negative Normal Negative [facility] ([place] Comment on above: Performed By: #### L IP, CMP, MDW, TROPHS, GFR, DIFF, MORPH, CBC #### [address] [place] [address] Bilirubin Test strip Ql (U)O rdered By: Kim Hutchinson on 07-26-2023 Bilirubin Ql (U) Negative Negative [facility] Culture, urineOrdered By: Tutu Hutchinson on 07-26-2023 Bacteria identified Cx Nom (U) Enterococcus faecalis [facility] Bacteria identified Cx Nom (U) Staphylococcus aureus [facility] Bacteria identified Cx Nom (U) Positive [facility] Ketones Test strip Ql (U)Ord ered By: Kim Hutchinson on 07-26-2023 Ketones Ql (U) 50 mg/dl Negative [facility] Nitrite Test strip Ql (U)Ord ered By: Kim Hutchinson on 07-26-2023 Nitrite Ql (U) Negative Negative [facility] Protein Test strip Ql (U)Ord ered By: Kim Hutchinson on 07-26-2023 Protein Ql (U) 15 mg/dl Negative [facility] Urine blood detectionOrdered By: Kim Hutchinson on 07-26-2023 RBC Ql (U) 25 /ul Negative [facility] Urine clarityOrdered By: Da Hutchinson on 07-26-2023 Clarity (U) Clear Clear [facility] Urine color determinationOrd ered By: Kim Hutchinson on 07-26-2023 Color (U) Yellow Yellow [facility] Urine glucose detectionOrder ed By: Kim Hutchinson on 07-26-2023 Glucose Ql (U) 1000 mg/dl Normal [facility] Urine leukocyte esterase det ection by dipstickOrdered By: Kim Hutchinson on 07-26-2023 Leukocyte esterase Test strip Ql (U) 25 /ul Negative [facility] Urine pHOrdered By: Kim mahmood on 07-26-2023 pH (U) 6.0 [pH] 5.0 - 8.0 [facility] Urine specific gravity measu rementOrdered By: Kim Hutchinson on 07-26-2023 Specific gravity (U) [Rel density] 1.010 1.002-1.030 [facility] Urine urobilinogen measureme ntOrdered By: Kim Hutchinson on 07-26-2023 Urobilinogen Ql (U) Normal mg/dl Normal [facility] Basophil percentageOrdered B y: Kim Hutchinson on 06-07-2023 Bilirubin [Mass/Vol] 0.50 mg/dL 0.20-1.00 [facility] Comment on above: For patients on eltr ombopag therapy, use of Dimension [place] TBIL is not recommended. Chloride [Moles/Vol] 112 mmol/L 98-107 [facility] Glucose [Mass/Vol] 106 mg/dL 74-106 [facility] Comment on above: Fasting Glucose resu lt from 100 to 125 mg/dL suggests IMPAIRED HOMEOSTASIS per A.D.A. criteria. Potassium [Moles/Vol] 4.2 mmol/L 3.5-5.1 [facility] Protein [Mass/Vol] 7.2 g/dL 6.4-8.2 [facility] Sodium [Moles/Vol] 141 mmol/L 136-145 [facility] Laboratory - Chemistry and C hemistry - challengeOrdered By: Kim Hutchinson on 06-07-2023 Albumin/Globulin [Mass ratio] 1.0 {ratio} 0.9-2.4 [facility] ALP [Catalytic activity/Vol] 77 U/L 45-117 [facility] ALT [Catalytic activity/Vol] 22 U/L 16-61 [facility] CO2 [Moles/Vol] 27.0 mmol/L 21.0-32.0 [facility] Globulin (S) [Mass/Vol] 3.6 g/dL 2.2-4.2 [facility] Urea nitrogen/Creatinine [Mass ratio] 19.7 mg/mg 10-20 [facility] No Panel InformationOrdered By: Kim Hutchinson on 06-07-2023 Estimated GFR (MDRD) Amer 104 mL/min >60 [facility] Comment on above: GFR Calc Estimated GFR (MDRD) Non-Af Amer 86 mL/min >60 [facility] Comment on above: Non- GFR Calc Serum or plasma calcium allen urement (mass/volume)Ordered By: Kim Hutchinson on 06-07-2023 Calcium [Mass/Vol] 8.8 mg/dL 8.5-10.1 [facility] Serum or plasma creatinine m easurement (mass/volume)Ordered By: Kim Hutchinson on 06-07-2023 Creatinine [Mass/Vol] 0.92 mg/dL 0.70-1.30 [facility] Comment on above: The validity of the calculated GFR & GFRAA in patients over 70 years has not been determined. Clinical correlation is essential. Serum or plasma thyroid stim ulating hormone (TSH) measurement (units/volume)Ordered By: Kim Hutchinson on 06-07-2023 TSH Qn 1.28 uIU/mL 0.358-3.74 [facility] Serum or plasma transthyreti n measurement (mass/volume)Ordered By: Kim Hutchinson on 06-07-2023 Prealbumin [Mass/Vol] 24.0 mg/dL 20.0-40.0 [facility] Serum or plasma urea nitroge n measurement (mass/volume)Ordered By: Kim Hutchinson on 06-07-2023 Urea nitrogen [Mass/Vol] 18 mg/dL 7-18 [facility] Thin prep Papanicolaou smear with manual screeningOrdered By: Kim Hutchinson on 06-07-2023 Thin prep Papanicolaou smear with manual screening 3.6 g/dL 3.2-5.0 [facility] Thin prep Papanicolaou smear with manual screening 12 U/L 15-37 [facility] Thin prep Papanicolaou smear with manual screening 2 5-15 [facility] Absolute lymphocyte countOrd ered By: Kim Hutchinson on 01-01-2023 Lymphocytes Auto (Unsp spec) [#/Vol] 2.17 10*3/uL 0.83-4.51 [facility] Basophil percentageOrdered B y: Kim Hutchinson on 01-01-2023 Basophils/100 WBC (Bld) 0.6 % 0-1 [facility] Bilirubin [Mass/Vol] 0.40 mg/dL 0.20-1.00 [facility] Comment on above: For patients on eltr ombopag therapy, use of Dimension [place] TBIL is not recommended. Chloride [Moles/Vol] 110 mmol/L 98-107 [facility] Cholesterol [Mass/Vol] 132 mg/dL <200 [facility] Comment on above: <200 mg/dL Desirable 200-240 mg/dL Borderline >240 mg/dL High Risk Eosinophils/100 WBC (Bld) 2.2 % 0-5 [facility] Glucose [Mass/Vol] 96 mg/dL 74-106 [facility] Neutrophils (Bld) [#/Vol] 7.0 10*3/uL 2.0-7.7 [facility] Neutrophils/100 WBC (Bld) 69.1 % 47-70 [facility] Potassium [Moles/Vol] 4.5 mmol/L 3.5-5.1 [facility] Protein [Mass/Vol] 7.2 g/dL 6.4-8.2 [facility] Sodium [Moles/Vol] 142 mmol/L 136-145 [facility] Triglyceride [Mass/Vol] 87 mg/dL <199 [facility] Comment on above: The drugs N-Acetylcy steine and Metamizole may falsely depress this assay.Serum Triglycerides Reference Interval Normal <150 mg/dL Borderline high 150 - 199 mg/dL High 200 - 499 mg/dL Very High > or = 500 mg/dL WBC (Bld) [#/Vol] 10.1 10*3/uL 4.4-11.0 [facility] Blood erythrocytes count (nu mber/volume)Ordered By: Kim Hutchinson on 01-01-2023 RBC (Bld) [#/Vol] 4.67 10*6/uL 4.6-6.2 [facility] Blood hemoglobin measurement (mass/volume)Ordered By: Kim Hutchinson on 01-01-2023 Hemoglobin (Bld) [Mass/Vol] 15.5 g/dL 13.0-16.5 [facility] Blood lymphocytes/100 leukoc ytesOrdered By: Kim Hutchinson on 01-01-2023 Lymphocytes/100 WBC (Bld) 21.6 % 19-41 [facility] Blood monocytes/100 leukocyt esOrdered By: Kim Hutchinson on 01-01-2023 Monocytes/100 WBC (Bld) 6.2 % 0-10 [facility] Blood platelet mean volumeOr dered By: Kim Hutchinson on 01-01-2023 Platelet mean volume (Bld) [Entitic vol] 10.2 fL 6.2-12.0 [facility] Determination of erythrocyte mean corpuscular volume (MCV)Ordered By: Kim Hutchinson on 01-01-2023 MCV (RBC) [Entitic vol] 98.1 fL 80-94 [facility] Hematocrit Auto (Bld) [Volum e fraction]Ordered By: Austen Riggs [employer] on 01-01-2023 Hematocrit (Bld) [Volume fraction] 45.8 % 40-54 [facility] Laboratory - Chemistry and C hemistry - challengeOrdered By: Kimannabella Hutchinson on 01-01-2023 ALP [Catalytic activity/Vol] 77 U/L 45-117 [facility] ALT [Catalytic activity/Vol] 24 U/L 16-61 [facility] CO2 [Moles/Vol] 27.0 mmol/L 21.0-32.0 [facility] Cobalamin (Vitamin B12) [Mass/Vol] 351 pg/mL 211-911 [facility] Globulin (S) [Mass/Vol] 3.7 g/dL 2.2-4.2 [facility] Urea nitrogen/Creatinine [Mass ratio] 18.9 mg/mg 10-20 [facility] Laboratory - Hematology and Cell countsOrdered By: Kimannabella Hutchinson on 01-01-2023 Erythrocyte distribution width (RBC) [Entitic vol] 48.8 fL 35.1-43.9 [facility] Erythrocyte distribution width (RBC) [Ratio] 13.3 % 11.6-14.6 [facility] Immature granulocytes/100 WBC (Bld) 0.300 % 0.0-0.9 [facility] Comment on above: IG% - Immature Granu locytes (promyelocytes, myelocytes and metamyelocytes) > 1% indicates that a LEFT SHIFT is Present. MCH (RBC) [Entitic mass] 33.2 pg 27.0-32.0 [facility] Nucleated RBC/100 WBC (Bld) [Ratio] 0 % 0-5 [facility] Auto (RBC) [Mass/Vol]Or dered By: Kim Hutchinson on 01-01-2023 MCHC (RBC) [Mass/Vol] 33.8 g/dL 32-36 [facility] No Panel InformationOrdered By: Kim Hutchinson on 01-01-2023 Estimated GFR (MDRD) Amer 100 mL/min >60 [facility] Comment on above: GFR Calc Estimated GFR (MDRD) Non-Af Amer 82 mL/min >60 [facility] Comment on above: Non- GFR Calc Prostate Specific Antigen Screen 1.53 ng/mL 0.00-4.00 [facility] Comment on above: This test was perfor med using the TPSA assay method for Functional Neuromodulation chemistry system. Values obtained with differentassay methods cannot be used interchangably.When changing PSA assays in the course of monitoring apatient, additional sequential testing should be carriedout to confirm baseline values. Thyroid Stimulating Hormone (TSH) 1.50 uIU/mL 0.358-3.74 [facility] Platelets bldOrdered By: Da Hutchinson on 01-01-2023 Platelets (Bld) [#/Vol] 253 10*3/uL 150-450 [facility] [facility] or plasma albumin allen urement (mass/volume)Ordered By: Kim Hutchinson on 01-01-2023 Albumin [Mass/Vol] 3.5 g/dL 3.2-5.0 [facility] [place] Serum or plasma albumin/glob ulin mass ratioOrdered By: Kim Hutchinson on 01-01-2023 Albumin/Globulin [Mass ratio] 0.9 {ratio} 0.9-2.4 [facility] Serum or plasma calcium allen urement (mass/volume)Ordered By: Kim Hutchinson on 01-01-2023 Calcium [Mass/Vol] 8.9 mg/dL 8.5-10.1 [facility] [place] Serum or plasma cholesterol in HDL measurement (mass/volume)Ordered By: Kim uHtchinson on 01-01-2023 Cholesterol in HDL [Mass/Vol] 36 mg/dL >40 [facility] Comment on above: The drugs N-Acetylcy steine and Metamizole may falsely depress this assay. Reference Range HDL <40 mg/dL Low HDL Cholesterol HDL >or= 60 mg/dL High HDL Cholesterol Serum or plasma cholesterol in VLDL measurement (mass/volume)Ordered By: Kim Hutchinson on 01-01-2023 Cholesterol in VLDL [Mass/Vol] 17 mg/dL 5-40 [facility] Serum or plasma creatinine m easurement (mass/volume)Ordered By: Kim Hutchinson on 01-01-2023 Creatinine [Mass/Vol] 0.95 mg/dL 0.70-1.30 [facility] Comment on above: The validity of the calculated GFR & GFRAA in patients over 70 years has not been determined. Clinical correlation is essential. Serum or plasma low density lipoprotein (LDL) cholesterol measurement (mass/volume)Ordered By: Kim Hutchinson on 01-01-2023 Cholesterol in LDL [Mass/Vol] 79 mg/dL 0-130 [facility] Serum or plasma urea nitroge n measurement (mass/volume)Ordered By: Kim Hutchinson on 01-01-2023 Urea nitrogen [Mass/Vol] 18 mg/dL 7-18 [facility] Thin prep Papanicolaou smear with manual screeningOrdered By: Kim Hutchinson on 01-01-2023 Thin prep Papanicolaou smear with manual screening 15 U/L 15-37 [facility] Thin prep Papanicolaou smear with manual screening 5 5-15 [facility] No Panel Informationon 01-16 Prostate Specific Antigen Screen 1.40 ng/mL 0.00-4.00 [facility] Work Phone: Comment on above: This test was perfor med using the TPSA assay method [facility]. Values obtained with differentassay methods cannot be used interchangably.When changing PSA assays in the course of monitoring apatient, additional sequential testing should be carriedout to confirm baseline values. Absolute lymphocyte counton 12-26-2021 Lymphocytes Auto (Unsp spec) [#/Vol] 1.91 10*3/uL 0.83-4.51 [facility] Work Phone: Basophil percentageon 2021 Basophils/100 WBC (Bld) 0.7 % 0-1 [facility] Work Phone: Bilirubin [Mass/Vol] 0.60 mg/dL 0.20-1.00 [facility] Work Phone: Comment on above: For patients on eltr ombopag therapy, use of Dimension [place] TBIL is not recommended. Chloride [Moles/Vol] 109 mmol/L 98-107 [facility] Work Phone: Eosinophils/100 WBC (Bld) 3.9 % 0-5 [facility] Work Phone: Glucose [Mass/Vol] 98 mg/dL 74-106 [facility] [place] Work Phone: Neutrophils (Bld) [#/Vol] 5.9 10*3/uL 2.0-7.7 [facility] Work Phone: Neutrophils/100 WBC (Bld) 67.1 % 47-70 [facility] Work Phone: Potassium [Moles/Vol] 4.3 mmol/L 3.5-5.1 [facility] Work Phone: Protein [Mass/Vol] 7.3 g/dL 6.4-8.2 [facility] [place] Work Phone: Sodium [Moles/Vol] 143 mmol/L 136-145 [facility] [place] Work Phone: WBC (Bld) [#/Vol] 8.8 10*3/uL 4.4-11.0 [facility] [place] Work Phone: Bilirubin Test strip Ql (U)o n 12-26-2021 Bilirubin Ql (U) Negative Negative [facility] Work Phone: Blood erythrocytes count (nu mber/volume)on 12-26-2021 RBC (Bld) [#/Vol] 4.50 10*6/uL 4.6-6.2 [facility] Work Phone: Blood hemoglobin measurement (mass/volume)on 12-26-2021 Hemoglobin (Bld) [Mass/Vol] 14.6 g/dL 13.0-16.5 [facility] Work Phone: Blood lymphocytes/100 leukoc yteson 12-26-2021 Lymphocytes/100 WBC (Bld) 21.7 % 19-41 [facility] Work Phone: Blood monocytes/100 leukocyt eson 12-26-2021 Monocytes/100 WBC (Bld) 6.1 % 0-10 [facility] Work Phone: Blood platelet mean volumeon 12-26-2021 Platelet mean volume (Bld) [Entitic vol] 10.1 fL 6.2-12.0 [facility] Work Phone: Determination of erythrocyte mean corpuscular volume (MCV)on 12-26-2021 MCV (RBC) [Entitic vol] 96.4 fL 80-94 [facility] Work Phone: Hematocrit Auto (Bld) [Volum e fraction]on 12-26-2021 Hematocrit (Bld) [Volume fraction] 43.4 % 40-54 [facility] Work Phone: Ketones Test strip Ql (U)on 12-26-2021 Ketones Ql (U) Negative Negative [facility] Work Phone: Laboratory - Chemistry and C hemistry - challengeon 12-26-2021 ALP [Catalytic activity/Vol] 84 U/L 45-117 [facility] Work Phone: ALT [Catalytic activity/Vol] 20 U/L 16-61 [facility] Work Phone: CO2 [Moles/Vol] 29.0 mmol/L 21.0-32.0 [facility] Work Phone: [phone] Cobalamin (Vitamin B12) [Mass/Vol] 414 pg/mL 211-911 [facility] Work Phone: Globulin (S) [Mass/Vol] 3.8 g/dL 2.2-4.2 [facility] Work Phone: Urea nitrogen/Creatinine [Mass ratio] 15.1 mg/mg 10-20 [facility] Work Phone: [phone] Laboratory - Hematology and Cell countson 12-26-2021 Erythrocyte distribution width (RBC) [Entitic vol] 47.6 fL 35.1-43.9 [facility] Work Phone: [phone] Erythrocyte distribution width (RBC) [Ratio] 13.4 % 11.6-14.6 [facility] Work Phone: [phone] Immature granulocytes/100 WBC (Bld) 0.500 % 0.0-0.9 [facility] Work Phone: [phone] Comment on above: IG% - Immature Granu locytes (promyelocytes, myelocytes and metamyelocytes) > 1% indicates that a LEFT SHIFT is Present. MCH (RBC) [Entitic mass] 32.4 pg 27.0-32.0 [facility] Work Phone: [phone] Nucleated RBC/100 WBC (Bld) [Ratio] 0 % 0-5 [facility] Work Phone: [phone] MCHC Auto (RBC) [Mass/Vol]on 12-26-2021 MCHC (RBC) [Mass/Vol] 33.6 g/dL 32-36 [facility] Work Phone: [phone] Nitrite Test strip Ql (U)on 12-26-2021 Nitrite Ql (U) Negative Negative [facility] Work Phone: [phone] Panel Informationon 12-26 Estimated GFR (MDRD) Amer 103 mL/min >60 [facility] Work Phone: [phone] Comment on above: GFR Calc Estimated GFR (MDRD) Non-Af Amer 85 mL/min >60 [facility] Work Phone: [phone] Comment on above: Non- GFR Calc Thyroid Stimulating Hormone (TSH) 1.92 uIU/mL 0.358-3.74 [facility] Work Phone: Platelets bldon 12-26-2021 Platelets (Bld) [#/Vol] 264 10*3/uL 150-450 [facility] Work Phone: Protein Test strip Ql (U)on 12-26-2021 Protein Ql (U) 15 mg/dl Negative [facility] Work Phone: Serum or plasma albumin allen urement (mass/volume)on 12-26-2021 Albumin [Mass/Vol] 3.5 g/dL 3.2-5.0 [facility] [place] Work Phone: Serum or plasma albumin/glob ulin mass ratioon 12-26-2021 Albumin/Globulin [Mass ratio] 0.9 {ratio} 0.9-2.4 [facility] Work Phone: Serum or plasma calcium allen urement (mass/volume)on 12-26-2021 Calcium [Mass/Vol] 8.8 mg/dL 8.5-10.1 [facility] [place] Work Phone: Serum or plasma creatinine m easurement (mass/volume)on 12-26-2021 Creatinine [Mass/Vol] 0.93 mg/dL 0.70-1.30 [facility] Work Phone: Comment on above: The validity of the calculated GFR & GFRAA in patients over 70 years has not been determined. Clinical correlation is essential. Serum or plasma urea nitroge n measurement (mass/volume)on 12-26-2021 Urea nitrogen [Mass/Vol] 14 mg/dL 7-18 [facility] Work Phone: Thin prep Papanicolaou smear with manual screeningon 12-26-2021 Thin prep Papanicolaou smear with manual screening 13 U/L 15-37 [facility] Work Phone: Thin prep Papanicolaou smear with manual screening 5 5-15 [facility] Work Phone: Urine blood detectionon 12-14 RBC Ql (U) Negative Negative [facility] Work Phone: Urine clarityon 12-26-2021 Clarity (U) Sl. Cloudy Clear [facility] Work Phone: Urine color determinationon 12-26-2021 Color (U) Yellow Yellow [facility] Work Phone: Urine glucose detectionon Glucose Ql (U) Normal mg/dl Normal [facility] Work Phone: Urine leukocyte esterase det ection by dipstickon 12-26-2021 Leukocyte esterase Test strip Ql (U) 25 /ul Negative [facility] Work Phone: Urine pHon 12-26-2021 pH (U) 6.0 [pH] 5.0 - 8.0 [facility] Work Phone: Urine specific gravity measu rementon 12-26-2021 Specific gravity (U) [Rel density] 1.020 1.002-1.030 [facility] Work Phone: Urobilinogen Auto test strip Ql (U)on 12-26-2021 Urobilinogen Ql (U) Normal mg/dl Normal [facility] Work Phone: LABORATORYOrdered By: Timothy Parra on 10-26-2021 Albumin BCP dye [Mass/Vol] 3.7 G/dL Invalid Interpretation Code 3.4 - 4.8 G/dL AO ADM SS Albumin/Globulin [Mass ratio] 1.3 {ratio} Invalid Interpretation Code 1.1 - 2.5 ratio AO ADM SS ALP [Catalytic activity/Vol] 86 U/L Invalid Interpretation Code 40 - 135 U/L AO ADM SS ALT With P-5'-P [Catalytic activity/Vol] 20 U/L Invalid Interpretation Code 16 - 63 U/L AO ADM SS AST With P-5'-P [Catalytic activity/Vol] 9 U/L Invalid Interpretation Code 10 - 40 U/L AO ADM SS Bilirubin [Mass/Vol] 0.3 mg/dL Invalid Interpretation Code 0.2 - 1.0 mg/dL AO ADM SS Calcium [Mass/Vol] 8.9 mg/dL Invalid Interpretation Code 8.4 - 10.2 mg/dL AO ADM SS Chloride [Moles/Vol] 109 mmol/L Invalid Interpretation Code 98 - 107 mmol/L AO ADM SS Cholesterol [Mass/Vol] 130 mg/dL Invalid Interpretation Code 0 - 200 mg/dL AO ADM SS Cholesterol in HDL [Mass/Vol] 40 mg/dL Invalid Interpretation Code 40 - 60 mg/dL AO ADM SS Cholesterol in LDL [Mass/Vol] 78 mg/dL Invalid Interpretation Code 0 - 130 mg/dL AO ADM SS CO2 [Moles/Vol] 29 mmol/L Invalid Interpretation Code 23 - 31 mmol/L AO ADM SS Creatinine [Mass/Vol] 1.06 mg/dL Invalid Interpretation Code 0.70 - 1.30 mg/dL AO ADM SS Electrolyte Balance 6.0 mEq/L Invalid Interpretation Code 4.0 - 15.0 mEq/L AO ADM SS Globulin 2.9 G/dL Invalid Interpretation Code AO ADM SS Glucose [Mass/Vol] 114 mg/dL Invalid Interpretation Code 83 - 110 mg/dL AO ADM SS Potassium [Moles/Vol] 4.3 mmol/L Invalid Interpretation Code 3.5 - 5.1 mmol/L AO ADM SS Protein [Mass/Vol] 6.6 G/dL Invalid Interpretation Code 6.4 - 8.2 G/dL AO ADM SS Sodium [Moles/Vol] 144 mmol/L Invalid Interpretation Code 136 - 145 mmol/L AO ADM SS Triglyceride [Mass/Vol] 62 mg/dL Invalid Interpretation Code 0 - 150 mg/dL AO ADM SS Urea nitrogen [Mass/Vol] 19 mg/dL Invalid Interpretation Code 7 - 18 mg/dL AO ADM SS Urea nitrogen/Creatinine [Mass ratio] 18 ratio Invalid Interpretation Code 7 - 27 ratio AO ADM SS LABORATORYOrdered By: Kori Willson on 10-26-2021 Erythrocyte distribution width (RBC) [Ratio] 14.4 % Invalid Interpretation Code 11.5 - 14.5 % AO Workflow SS Hematocrit (Bld) [Volume fraction] 42.5 % Invalid Interpretation Code 42.0 - 52.0 % AO Workflow SS Hemoglobin (Bld) [Mass/Vol] 14.6 G/dL Invalid Interpretation Code 14.0 - 18.0 G/dL AO Workflow SS MCH (RBC) [Entitic mass] 32.5 pg Invalid Interpretation Code 27.0 - 31.2 pg AO Workflow SS MCHC 34.3 G/dL Invalid Interpretation Code 31.8 - 35.4 G/dL AO Workflow SS MCV (RBC) [Entitic vol] 94.7 fL Invalid Interpretation Code 80.0 - 94.0 fL AO Workflow SS Platelet mean volume (Bld) [Entitic vol] 8.1 fL Invalid Interpretation Code 7.4 - 10.4 fL AO Workflow SS Platelets (Bld) [#/Vol] 225 103/mcL Invalid Interpretation Code 130 - 400 10^3/mcL AO Workflow SS RBC (Bld) [#/Vol] 4.49 106/mcL Invalid Interpretation Code 4.04 - 6.13 10^6/mcL AO Workflow SS WBC 8.8 103/mcL Invalid Interpretation Code 4.6 - 10.8 10^3/mcL AO Workflow SS LABORATORYOrdered By: SYSTEM SYSTEM on 10-26-2021 GFR 83 ml/min/1.73sqm Invalid Interpretation Code AO Chemistry S GFR Non- 69 ml/min/1.73sqm Invalid Interpretation Code AO Chemistry S LABORATORYOrdered By: Bailey Kong on 10-26-2021 HbA1c (Bld) [Mass fraction] 6.0 % Invalid Interpretation Code 4.3 - 6.4 % AO ADM SS ANES POSTPROC EVALon 021 ANES POSTPROC EVAL HNO ID: [id number] Author: Alfonso Khan MD Service: Anesthesiology Author Type: Anesthesiologist Type: Anesthesia Postprocedure Evaluation Filed: 03/17/2021 12:47 PM Note Text: POST ANESTHESIA EVALUATION NOTE : 1950 Procedure Summary Date: 03/17/21 Room / Location: [place] [address] / [facility] Anesthesia Start: 1143 Anesthesia Stop: 1220 Procedure: REPAIR OF ENTROPION, TARSAL WEDGE EXTENSIVE (Left Eye lid) Diagnosis: Entropion of left lower eyelid (Entropion of left lower eyelid [H02.005]) Surgeons: Eduard Verde MD Responsible Provider: Alfonso Khan MD Anesthesia Type: MAC ASA Status: 3 Anesthesia Type: MAC Last vitals Vitals Value Taken Time BP 122/93 03/17/21 1230 Temp 36.3 ?C (97.3 ?F) 03/17/21 1220 Pulse 67 03/17/21 1230 Resp 16 03/17/21 1230 SpO2 96 % 03/17/21 1230 Post Anesthesia Patient Status Patient Evaluation: PACU. PACU/ICU Patient Condition: stable. Anticipated Disposition: phase 2 then home. Neurological Status: aware and responsive. Pulmonary Status: breathing comfortably on room air Airway Control: returned to baseline unsupported. Cardiovascular Status: stable. Pain Management: clinically adequate - multimodal analgesia pain management approach Postoperative Hydration: acceptable. Intraoperative Events: no significant anesthesia events Recommendation: continue current plan of care. Other Remarks: Patient will go back to half-way with his caregiver.. Anesthesia Observations No Documentation SIGNATURE: Alfonso Khan MD PATIENT NAME: Renny Russo DATE: March 17, 2021 TIME: 12:45 PM CSN: [id number] [facility] ANES PRE-OPon 03-17-2021 ANES PRE-OP HNO ID: [id number] Author: Alfonso Khan MD Service: Anesthesiology Author Type: Anesthesiologist Type: Anesthesia Preprocedure Evaluation Filed: 03/17/2021 11:30 AM Note Text: ANESTHESIOLOGY DAY OF SURGERY NOTE : 1950 Procedure(s) (LRB): REPAIR OF ENTROPION, TARSAL WEDGE EXTENSIVE (Left) Surgeon(s): Eduard Verde MD Estimated body mass index is 22.43 kg/m? as calculated from the following: Height as of 12/22/19: 185.4 cm (6' 1). Weight as of 12/22/19: 77.1 kg (170 lb). Most recent hematocrit and potassium results: No results found for this basename: HCT,HEMATOCRIT,K,POTASS IUM Relevant Problems No relevant active problems I - PHYSICAL EVALUATION AIRWAY Patient intubated: No. Tracheostomy tube not present Mallampati: III. TM distance: >3 FB. Neck ROM: full ROM without neurological symptoms. Mouth opening: adequate. DENTAL Dental findings: missing tooth/teeth and poor dentition. Additional exam findings: no II - ANESTHESIA PLAN ASA Score: 3 Anesthetic Plan: MAC Anesthetic plan additional comments: GA backup. NPO Status: adequate Monitoring plan: standard ASA. Postoperative analgesic plan: parenteral or oral opioids and multimodal analgesia. Anesthetic Risks, Benefits, Alternatives, Personnel Discussed. Consent obtained from: patient.Patient / Surrogate agrees to blood products: blood products not planned Significant changes in the patient condition since the History and Physical, not otherwise documented in primary service progress note: no. No vitals data found for the desired time range. Facility-Administered Medications as of 03/17/2021 Medication Dose Route Frequency - lactated ringers iv infusion 30 mL/hr INTRAVENOUS CONTINUOUS Outpatient Medications as of 03/17/2021 Medication Sig - donepezil (ARICEPT) 5 mg tablet Take 5 mg by mouth daily at bedtime. - erythromycin (ROMYCIN) 5 mg/gram (0.5 %) ophthalmic ointment 1 application once daily. - [id number]-[id number]-ANAI METH 3.5 MG/ML-10,000 UNIT/ML-0.1% EYE DROPS 1 Drop as needed. - oxybutynin ER (DITROPAN XL) 10 mg 24 hr tablet Take 10 mg by mouth once daily. - iv contrast (will be provided with radiology test) CT Brain WO/W - No IV access, insert saline lock prior to the sedation, infusion, injection for imaging exam. Discontinue saline lock post exam. If Pt. has a central line or IVAD, may access for administration according to line specific nursing protocol. Once exam is complete flush line and de-access according to line specific nursing protocol in the CT contrast administration guidelines link. - iv contrast (will be provided with radiology test) CT Brain WO/W - No IV access, insert saline lock prior to the sedation, infusion, injection for imaging exam. Discontinue saline lock post exam. If Pt. has a central line or IVAD, may access for administration according to line specific nursing protocol. Once exam is complete flush line and de-access according to line specific nursing protocol in the CT contrast administration guidelines link. (Patient not taking: Reported on 12/17/2018 ) - busPIRone (BUSPAR) 10 mg tablet Take 20 mg by mouth three times daily. - escitalopram oxalate (LEXAPRO) 20 mg tablet Take 20 mg by mouth once daily. - mirabegron (MYRBETRIQ) 50 mg Tb24 Take by mouth once daily. - solifenacin (VESICARE) 10 mg tablet Take 5 mg by mouth once daily. - gabapentin (NEURONTIN) 100 mg capsule Take 100 mg by mouth twice daily. - QUEtiapine (SEROQUEL) 50 mg tablet Take 50 mg by mouth twice daily. - amoxicillin (AMOXIL) 400 mg/5 mL suspension Take 10 ml by mouth twice daily x 10 days. (Patient not taking: Reported on 11/14/2018 ) - ketoconazole 2 % cream Apply 1 application to affected area twice daily. (Patient not taking: Reported on 12/17/2018 ) - LORATADINE 10 MG TAB Take one(1) tablet daily for allergy symptoms including sneezing, itchy, watery eyes, and congestion I have interviewed and examined the patient. I have reviewed the medical record and/or the pre-anesthesia evaluation, pertinent labs, and test results. This contains updated information obtained within 48 hours of Surgery/Procedure. SIGNATURE: Alfonso Khan MD PATIENT NAME: Renny Russo DATE: March 17, 2021 TIME: 11:10 AM CSN: [id number] [facility] NURSING PROGon 03-17-2021 NURSING PROG HNO ID: [id number] Author: Tamara Ruby RN Service: Ophthalmology Author Type: Registered Nurse Type: Nursing Progress Note Filed: 03/17/2021 11:23 AM Note Text: Caregiver from half-way Junie remains at bedside to assist patient with communication and medical history questions. [facility] OPERATIVE NOon 03-17-2021 OPERATIVE NO HNO ID: [id number] Author: Eduard Verde MD Service: Ophthalmology Author Type: Physician Type: Operative Report Filed: 03/17/2021 12:18 PM Note Text: OPERATIVE/PROCEDURE REPORT OPHTHAMOLOGY LOG ID: [id number] Surgery/Procedure Date: 03/17/2021 Incision/Procedure Start Time: 11:52 AM Incision Close/Procedure End Time: 12:17 PM Surgeon(s)/Proceduralis t(s) and Tomato Pulper Operator(s): Surgeon(s) and Role: * Eduard Verde MD - Primary Procedure(s): Procedure(s) (LRB): REPAIR OF ENTROPION, TARSAL WEDGE EXTENSIVE (Left) Preoperative Diagnosis: Entropion of left lower eyelid [H02.005] Postoperative Diagnosis: Same as Preop Operative Indications: Conjunctivitis Anesthesia: Monitored Anesthesia Care Procedure Details: The patient was brought in the operating room, placed under adequate local anesthesia, the face prepped and draped in the usual sterile fashion for eye surgery. Canthotomy cantholysis was performed. A tarsal strip was fashioned and secured using a 4-0 Polydek suture. A transconjunctival incision was made and dissection was carried out to the level of the lower lid retractors, which were identified. The inferior eyelid orbicularis was cauterized extensively. The lower lid retractors were reattached to the inferior border of the tarsus using a 6-0 Prolene. The conjunctiva was closed with 7-0 Vicryl and the tarsal strip was attached to the orbital rim using a 4-0 Polydek suture. The incision temporally was closed using interrupted sutures of 7-0 Vicryl. Antibiotic ointment was placed on the eye. The patient was returned to the recovery room in satisfactory condition. Estimated Blood Loss: Minimal unless noted here. Specimens: * No specimens in log * Implantable Devices: * No implants in log * Drains: None unless noted here. Complications: None I performed the entire procedure. SIGNATURE: Eduard Verde MD PATIENT NAME: Renny Russo DATE: March 17, 2021 TIME: 12:17 PM PAGER/CONTACT #: [facility] 12-22-2019 [facility] Office Visit (СВЕТЛАНАAGAK ) RENNY RUSSO ([id number]) 1950 M Date Time Provider Department 12/22/19 11:00 AM MATTHEW FULLER During your visit today, we recorded the following information about you: Temperature Pulse Respiration Blood pressure 98.3 degrees 78/minute 18/minute 114/73 Weight Height 77.1 kg 1.854 m Matthew Fuller MD 12/22/2019 12:07 PM Signed NEUROSURGERY FOLLOW UP OFFICE NOTE Matthew Fuller MD Date of visit: December 22, 2019 Patient Name: Mr.Charles Russo Date of : 1950 Current Age: [age] year old Sex: male MRN/E# [id number] Last Office Visit: 12/17/2018 DIAGNOSIS: Parafalcine meningioma Chief Complaint: Patient presents with: Follow Up: follow up 1 year SUBJECTIVE: Renny Russo is a 69 year old right-handed male presenting caregiver. Mr. Russo presents to the office today for a one year follow up visit with new imaging (CT brain) for meningioma. He was diagnosed with a 1 cm parafalcine meningioma in June 2018 after being evaluated in the emergency room for change in mental status. He resides in a half-way. At his office visit on 12/17/2018, his caregivers stated he had symptoms of progressive dementia as well as urinary incontinence. Today he feels well. He denies headaches. Per caregiver, there are no concerns. He is here for annual follow up for meningioma. Symptoms: progressive dementia PREVIOUS CONSERVATIVE TREATMENTS: None PREVIOUS SURGERY: None Smoker: YES Diabetic: no Anticoagulants: no Occupation: disabled Denies pain at today's visit PAST MEDICAL HISTORY Diagnosis Date - Acute gastritis without mention of hemorrhage - Cataracts, bilateral - Depression - Diarrhea - Duodenitis without mention of hemorrhage - Generalized anxiety disorder - Unspecified intellectual disabilities PAST SURGICAL HISTORY Procedure Laterality Date - COLONOSCOP W/ OR W/O BRSH SPEC 12/04/2007 normal - EGD W/O BRSH SPECIMEN W/BX 12/04/2007 moderate gastritis No family history on file. ALLERGIES No Known Allergies Current Outpatient Medications Medication Sig Dispense Refill - iv contrast (will be provided with radiology test) CT Brain WO/W - No IV access, insert saline lock prior to the sedation, infusion, injection for imaging exam. Discontinue saline lock post exam. If Pt. has a central line or IVAD, may access for administration according to line specific nursing protocol. Once exam is complete flush line and de-access according to line specific nursing protocol in the CT contrast administration guidelines link. 1 Each 0 - iv contrast (will be provided with radiology test) CT Brain WO/W - No IV access, insert saline lock prior to the sedation, infusion, injection for imaging exam. Discontinue saline lock post exam. If Pt. has a central line or IVAD, may access for administration according to line specific nursing protocol. Once exam is complete flush line and de-access according to line specific nursing protocol in the CT contrast administration guidelines link. (Patient not taking: Reported on 12/17/2018 ) 1 Each 0 - busPIRone (BUSPAR) 10 mg tablet Take 10 mg by mouth three times daily. - escitalopram oxalate (LEXAPRO) 20 mg tablet Take 20 mg by mouth once daily. - mirabegron (MYRBETRIQ) 50 mg Tb24 Take by mouth once daily. - solifenacin (VESICARE) 10 mg tablet Take 5 mg by mouth once daily. - gabapentin (NEURONTIN) 100 mg capsule Take 100 mg by mouth twice daily. - QUEtiapine (SEROQUEL) 50 mg tablet Take 50 mg by mouth twice daily. - amoxicillin (AMOXIL) 400 mg/5 mL suspension Take 10 ml by mouth twice daily x 10 days. (Patient not taking: Reported on 11/14/2018 ) 200 mL 0 - ketoconazole 2 % cream Apply 1 application to affected area twice daily. (Patient not taking: Reported on 12/17/2018 ) 15 g 0 - LORATADINE 10 MG TAB Take one(1) tablet daily for allergy symptoms including sneezing, itchy, watery eyes, and congestion 30 11 No current facility-administered medications for this visit. REVIEW OF SYSTEMS Review of Systems Constitutional: Negative for activity change, appetite change, chills, diaphoresis, fatigue, fever and unexpected weight change. HENT: Negative for trouble swallowing. Respiratory: Negative for apnea, cough, chest tightness and shortness of breath. Cardiovascular: Negative for chest pain and leg swelling. Gastrointestinal: Negative for abdominal pain. Neurological: Negative for dizziness, tremors, seizures, facial asymmetry, speech difficulty, weakness, light-headedness, numbness and headaches. Psychiatric/Behavioral: Positive for confusion. Negative for agitation and behavioral problems. The patient is not nervous/anxious. OBJECTIVE: BP 114/73 Pulse 78 Temp 98.3 Resp 18 Ht 6' 1 (1.85m) Wt 170 lb (77.1kg) SpO2 97% BMI 22.43 kg/(m2). Physical Exam Constitutional: He is well-developed, well-nourished, and in no distress. HENT: Head: Normocephalic. Cardiovascular: Normal rate. Pulmonary/Chest: Effort normal. Musculoskeletal: General: No deformity or edema. Neurological: He is alert. He has normal strength. Skin: Skin is warm and dry. Psychiatric: Mood and affect normal. Neurological Exam Mental Status Alert. Oriented only to person. Speech: Brief, appropriate responses to questions. Motor Normal muscle bulk throughout. Normal muscle tone. Strength is 5/5 throughout all four extremities. Gait Gait is slightly wide-based, steady. . Data Review CT Brain WO/W IVCON 12/22/2019 (final report pending) Personal review of medical records: I reviewed with the patient, history, physical exam, the images and the chart. ASSESSMENT/PLAN 1. Meningioma (HCC) Stable meningioma on repeat 1 yr imaging, measures 8 mm in diameter Given the small size and stability over the last year, will f/up with repeat CT brain w/wo in 5 yrs. Should there be any concerns prior to that, will arrange repeat imaging at an earlier time. Matthew Fuller MD This note was partially generated using [employer] voice recognition system, and there may be some incorrect words, spellings, and punctuation that were not noted in checking the note before saving. Referring Provider: MATTHEW FULLER [[id number]] Allergies As of Date: 12/22/2019 (No Known Allergies) Date Reviewed: 12/22/2019 Reviewed by: Matthew Fuller - Fully Assessed Reason for Visit: Follow Up [171] Cmt: follow up 1 year Primary Visit Diagnosis:Meningioma (HCC) [D32.9] Prescriptions as of 12/22/2019 Sig: OXYBUTYNIN CHLORIDE ER 10 MG * Take 10 mg by mouth once abbi* BUSPIRONE 10 MG TABLET Take 10 mg by mouth three bill* ESCITALOPRAM 20 MG TABLET Take 20 mg by mouth once abbi* SOLIFENACIN 10 MG TABLET Take 5 mg by mouth once daily. GABAPENTIN 100 MG CAPSULE Take 100 mg by mouth twice da* QUETIAPINE 50 MG TABLET Take 50 mg by mouth twice nilda* LORATADINE 10 MG TABLET Take one(1) tablet daily for * IV CONTRAST (RADIOLOGY PROCED* CT Brain WO/W - No IV access,* IV CONTRAST (RADIOLOGY PROCED* CT Brain WO/W - No IV access,* Patient not taking: Reported on 12/17/2018 MIRABEGRON ER 50 MG TABLET,EX* Take by mouth once daily. 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 Follow-up and Disposition History Recorded Encounter Status:Closed by MATTHEW FULLER on 12/22/19 [address] [facility] [address] BRAIN WO/W IVCONon 2019 CT BRAIN WO/W IVCON Final Report DATE OF EXAM: Dec 22 2019 11:31AM A1C 0007 - CT BRAIN WO/W IVCON / PROCEDURE REASON: Meningioma (HCC) Physician Interpretation EXAMINATION: CT BRAIN WO/W IVCON CLINICAL HISTORY: Meningioma (HCC) meningioma follow up L parafalcine meningioma (calcified), follow up TECHNIQUE: Serial axial images with and without IV contrast were obtained from the vertex to the foramen magnum. MQ: CTBWOW_1 Contrast: 100 mL Omnipaque [address] Dose-Length Product (DLP): 1589.[address] Dose Reduction Employed: No dose reduction techniques were required COMPARISON: 12/10/2018 CT brain RESULT: Post-operative change: None. Acute change: No evidence of an acute intracranial process. Hemorrhage: No intracranial hemorrhage. Mass Lesion / Mass Effect: Lobular stable extra-axial dural-based enhancing mass with superimposed calcification compatible with meningioma along the anterior falx on the left measuring 10 mm in maximum dimension minimally abutting the adjacent left superior frontal gyrus (axial image 23 and coronal image 18). No evidence of abnormal intracranial enhancement in the remainder of the brain. Incidental note of developmental venous anomaly in the right inferior frontal lobe,axial image 13 and coronal image 16. Chronic change: None apparent. Parenchyma: There is no significant volume loss. Ventricles: The ventricles are within normal limits of size and configuration for age. Paranasal sinuses and skull base: The visualized paranasal sinuses are clear. The skull base and imaged soft tissues are unremarkable. Educational Resource Coordinator (topogram) images: No additional findings. IMPRESSION: 1. Stable 10 mm partly calcified meningioma left anterior parafalcine with mild mass effect on the left superior frontal gyrus, unchanged. 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 [employer] Executive [employer]: BRIT Transcribe Date/Time: Dec 22 2019 12:47P Dictated by : JHONY RAPP MD This examination was interpreted and the report reviewed and electronically signed by: JHONY RAPP MD on Dec 22 2019 1:00PM EST [facility] PROGRESSon 12-22-2019 PROGRESS HNO ID: [id number] Author: Matthew Fuller Service: ? Author Type: Physician Type: Progress Notes Filed: 12/22/2019 12:07 PM Note Text: NEUROSURGERY FOLLOW UP OFFICE NOTE Matthew Fuller MD Date of visit: December 22, 2019 Patient Name: Mr.Charles Russo Date of : 1950 Current Age: [age] year old Sex: male MRN/E# [id number] Last Office Visit: 12/17/2018 DIAGNOSIS: Parafalcine meningioma Chief Complaint: Patient presents with: Follow Up: follow up 1 year SUBJECTIVE: Renny Russo is a 69 year old right-handed male presenting caregiver. Mr. Russo presents to the office today for a one year follow up visit with new imaging (CT brain) for meningioma. He was diagnosed with a 1 cm parafalcine meningioma in June 2018 after being evaluated in the emergency room for change in mental status. He resides in a half-way. At his office visit on 12/17/2018, his caregivers stated he had symptoms of progressive dementia as well as urinary incontinence. Today he feels well. He denies headaches. Per caregiver, there are no concerns. He is here for annual follow up for meningioma. Symptoms: progressive dementia PREVIOUS CONSERVATIVE TREATMENTS: None PREVIOUS SURGERY: None Smoker: YES Diabetic: no Anticoagulants: no Occupation: disabled Denies pain at today's visit PAST MEDICAL HISTORY Diagnosis Date - Acute gastritis without mention of hemorrhage - Cataracts, bilateral - Depression - Diarrhea - Duodenitis without mention of hemorrhage - Generalized anxiety disorder - Unspecified intellectual disabilities PAST SURGICAL HISTORY Procedure Laterality Date - COLONOSCOP W/ OR W/O [facility] SPEC 12/04/2007 normal - EGD W/O [facility] SPECIMEN W/BX 12/04/2007 moderate gastritis No family history on file. ALLERGIES No Known Allergies Current Outpatient Medications Medication Sig Dispense Refill - iv contrast (will be provided with radiology test) CT Brain WO/W - No IV access, insert saline lock prior to the sedation, infusion, injection for imaging exam. Discontinue saline lock post exam. If Pt. has a central line or IVAD, may access for administration according to line specific nursing protocol. Once exam is complete flush line and de-access according to line specific nursing protocol in the CT contrast administration guidelines link. 1 Each 0 - iv contrast (will be provided with radiology test) CT Brain WO/W - No IV access, insert saline lock prior to the sedation, infusion, injection for imaging exam. Discontinue saline lock post exam. If Pt. has a central line or IVAD, may access for administration according to line specific nursing protocol. Once exam is complete flush line and de-access according to line specific nursing protocol in the CT contrast administration guidelines link. (Patient not taking: Reported on 12/17/2018 ) 1 Each 0 - busPIRone (BUSPAR) 10 mg tablet Take 10 mg by mouth three times daily. - escitalopram oxalate (LEXAPRO) 20 mg tablet Take 20 mg by mouth once daily. - mirabegron (MYRBETRIQ) 50 mg Tb24 Take by mouth once daily. - solifenacin (VESICARE) 10 mg tablet Take 5 mg by mouth once daily. - gabapentin (NEURONTIN) 100 mg capsule Take 100 mg by mouth twice daily. - QUEtiapine (SEROQUEL) 50 mg tablet Take 50 mg by mouth twice daily. - amoxicillin (AMOXIL) 400 mg/5 mL suspension Take 10 ml by mouth twice daily x 10 days. (Patient not taking: Reported on 11/14/2018 ) 200 mL 0 - ketoconazole 2 % cream Apply 1 application to affected area twice daily. (Patient not taking: Reported on 12/17/2018 ) 15 g 0 - LORATADINE 10 MG TAB Take one(1) tablet daily for allergy symptoms including sneezing, itchy, watery eyes, and congestion 30 11 No current facility-administered medications for this visit. REVIEW OF SYSTEMS Review of Systems Constitutional: Negative for activity change, appetite change, chills, diaphoresis, fatigue, fever and unexpected weight change. HENT: Negative for trouble swallowing. Respiratory: Negative for apnea, cough, chest tightness and shortness of breath. Cardiovascular: Negative for chest pain and leg swelling. Gastrointestinal: Negative for abdominal pain. Neurological: Negative for dizziness, tremors, seizures, facial asymmetry, speech difficulty, weakness, light-headedness, numbness and headaches. Psychiatric/Behavioral: Positive for confusion. Negative for agitation and behavioral problems. The patient is not nervous/anxious. OBJECTIVE: BP 114/73 Pulse 78 Temp 98.3 Resp 18 Ht 6' 1 (1.85m) Wt 170 lb (77.1kg) SpO2 97% BMI 22.43 kg/(m2). Physical Exam Constitutional: He is well-developed, well-nourished, and in no distress. HENT: Head: Normocephalic. Cardiovascular: Normal rate. Pulmonary/Chest: Effort normal. Musculoskeletal: General: No deformity or edema. Neurological: He is alert. He has normal strength. Skin: Skin is warm and dry. Psychiatric: Mood and affect normal. Neurological Exam Mental Status Alert. Oriented only to person. Speech: Brief, appropriate responses to questions. Motor Normal muscle bulk throughout. Normal muscle tone. Strength is 5/5 throughout all four extremities. Gait Gait is slightly wide-based, steady. . Data Review CT Brain WO/W IVCON 12/22/2019 (final report pending) Personal review of medical records: I reviewed with the patient, history, physical exam, the images and the chart. ASSESSMENT/PLAN 1. Meningioma (HCC) Stable meningioma on repeat 1 yr imaging, measures 8 mm in diameter Given the small size and stability over the last year, will f/up with repeat CT brain w/wo in 5 yrs. Should there be any concerns prior to that, will arrange repeat imaging at an earlier time. Matthew Fuller MD This note was partially generated using [employer] voice recognition system, and there may be some incorrect words, spellings, and punctuation that were not noted in checking the note before saving. Normal [facility] Culture, urine Bacteria identified Cx Nom (U[facility] Work Phone: Vital Signs Date Time Vital Sign Value Performing Clinician Facility 07-13-2024 12:49-0400 Body temperature 97.7 [degF] Dr. Kim Hutchinson MD Work Phone: [facility] 07-13-2024 12:49-0400 Diastolic blood pressure 78 mm[Hg] Dr. Kim Hutchinson MD Work Phone: [facility] 07-13-2024 12:49-0400 Heart rate 71 /min Dr. Kim Hutchinson MD Work Phone: [facility] 07-13-2024 12:49-0400 Respiratory rate 18 /min Dr. Kim Hutchinson MD Work Phone: [facility] 07-13-2024 12:49-0400 SaO2% (BldA) [Mass fraction] 96 % Dr. Kim Hutchinson MD Work Phone: [facility] 07-13-2024 12:49-0400 Systolic blood pressure 120 mm[Hg] Dr. Kim Hutchinson MD Work Phone: [facility] 06-07-2024 14:00-0500 Diastolic Blood Pressure Non-Invasive 96 mm[Hg] DR SAMIA MICHEL MD [facility] 06-07-2024 14:00-0500 Heart rate 67 /min DR SAMIA MICHEL MD [facility] 06-07-2024 14:00-0500 Respiratory rate 16 /min DR SAMIA MICHEL MD [facility] 06-07-2024 14:00-0500 Systolic Blood Pressure Non-Invasive 118 mm[Hg] DR SAMIA MICHEL MD [facility] 06-07-2024 13:26-0500 Heart rate 73 /min DR SAMIA MICHEL MD [facility] 06-07-2024 13:26-0500 Respiratory rate 22 /min DR SAMIA MICHEL MD [facility] 06-07-2024 13:00-0500 Diastolic Blood Pressure Non-Invasive 70 mm[Hg] DR SAMIA MICHEL MD [facility] 06-07-2024 13:00-0500 Heart rate 74 /min DR SAMIA MICHEL MD [facility] 06-07-2024 12:43-0500 Blood Pressure Cuff Size DR SAMIA MICHEL MD [facility] 06-07-2024 12:43-[address] SAMIA MICHEL MD [facility] 06-07-2024 12:43-[address] SAMIA MICHEL MD [facility] 06-07-2024 12:43-0500 Body temperature 97.88 [degF] DR SAMIA MICHEL MD [facility] 06-07-2024 12:43-0500 Diastolic Blood Pressure Non-Invasive 84 mm[Hg] DR SAMIA MICHEL MD [facility] 06-07-2024 12:43-0500 Heart rate 73 /min DR SAMIA MICHEL MD [facility] 06-07-2024 12:43-0500 Systolic Blood Pressure Non-Invasive 134 mm[Hg] DR SAMIA MICHEL MD [facility] 05-26-2024 15:21-0500 Body temperature 97.5 [degF] Dr. Kim Hutchinson MD Work Phone: [facility] 05-26-2024 15:21-0500 Diastolic blood pressure 70 mm[Hg] Dr. Kim Hutchinson MD Work Phone: [facility] 05-26-2024 15:21-0500 Heart rate 71 /min Dr. Kim Hutchinson MD Work Phone: [facility] 05-26-2024 15:21-0500 Respiratory rate 12 /min Dr. Kim Hutchinson MD Work Phone: [facility] 05-26-2024 15:21-0500 SaO2% (BldA) [Mass fraction] 97 % Dr. Kim Hutchinson MD Work Phone: [facility] 05-26-2024 15:21-0500 Systolic blood pressure 116 mm[Hg] Dr. Kim Hutchinson MD Work Phone: [facility] 2024 21:43-0500 Heart rate 67 /min DR YULIET TREVINO DO [facility] 2024 21:43-0500 Respiratory rate 18 /min DR YULIET TREVINO DO [facility] 2024 17:34-0500 Body temperature 98.24 [degF] DR YULIET TREVINO DO [facility] 2024 17:34-0500 Heart rate 74 /min DR YULIET TREVINO DO [facility] 2024 17:34-0500 Respiratory rate 16 /min DR YULIET TREVINO DO [facility] 04-06-2024 12:19-0500 Blood Pressure Location AGUSTIN ACEVES DO [facility] 04-06-2024 12:19-0500 Blood Pressure Method AGUSTIN ACEVES DO [facility] 04-06-2024 12:19-0500 Body temperature 98.06 [degF] AGUSTIN ACEVES DO [facility] 04-06-2024 12:19-0500 Diastolic Blood Pressure Non-Invasive 62 mm[Hg] AGUSTIN ACEVES DO [facility] 04-06-2024 12:19-0500 Heart rate 86 /min AGUSTIN ACEVES DO [facility] 04-06-2024 12:19-0500 Respiratory rate 18 /min AGUSTIN ACEVES DO [facility] 04-06-2024 12:19-0500 Systolic Blood Pressure Non-Invasive 123 mm[Hg] AGUSTIN ACEVES DO [facility] 02-06-2024 11:21-0400 Body mass index (BMI) [Ratio] 22.43 kg/m2 Jumana Soliz APRN.CDL [employer]ED TRUCK DRIVER Work Phone: [facility] 02-06-2024 11:21-0400 Body weight 77.1 kg Jumana Soliz APRN.CDL [employer]IVER Work Phone: [facility] 02-06-2024 11:21-0400 Respiratory rate 16 /min Jumana Soliz APRN.CDL [employer] TRUCK DRIVER Work Phone: [facility] 09-24-2023 11:30-0400 Body temperature 98.24 [degF] SEBAS HARDY MD [facility] 09-24-2023 11:30-0400 Diastolic Blood Pressure Non-Invasive 84 mm[Hg] SEBAS HARDY MD [facility] 09-24-2023 11:30-0400 Heart rate 61 /min SEBAS AHRDY MD [facility] 09-24-2023 11:30-0400 Respiratory rate 19 /min SEBAS HARDY MD [facility] 09-24-2023 11:30-0400 Systolic Blood Pressure Non-Invasive 132 mm[Hg] SEBAS HARDY MD [facility] 08-09-2023 18:37-0400 Body mass index (BMI) [Ratio] 20.85 kg/m2 Amilcar Veronica MD Work Phone: [facility] 08-09-2023 18:37-0400 Body temperature 98.2 [degF] Amilcar Veronica MD Work Phone: [facility] 08-09-2023 18:37-0400 Body weight 71.7 kg Amilcar Veronica MD Work Phone: [facility] 08-09-2023 18:37-0400 Diastolic blood pressure 78 mm[Hg] Amilcar Veronica MD Work Phone: [facility] 08-09-2023 18:37-0400 Heart rate 66 /min Amilcar Veronica MD Work Phone: [facility] 08-09-2023 18:37-0400 Respiratory rate 16 /min Amilcar Veronica MD Work Phone: [facility] 08-09-2023 18:37-0400 SaO2% (BldA) [Mass fraction] 98 % Amilcar Veronica MD Work Phone: [facility] 08-09-2023 18:37-0400 Systolic blood pressure 130 mm[Hg] Amilcar Veronica MD Work Phone: [facility] 07-29-2023 21:33-[address] SAMIA MICHEL MD [facility] 07-29-2023 21:33-[address] SAMIA MICHEL MD [facility] 07-29-2023 21:33-0400 Body temperature 99.5 [degF] DR SAMIA MICHEL MD [facility] 07-29-2023 21:33-0400 Body weight 77.[address] SAMIA MICHEL MD [facility] 07-29-2023 21:33-0400 Diastolic Blood Pressure Non-Invasive 68 mm[Hg] DR SAMIA MICHEL MD [facility] 07-29-2023 21:33-0400 Heart rate 70 /min DR SAMIA MICHEL MD [facility] 07-29-2023 21:33-0400 Respiratory rate 16 /min DR SAMIA MICHEL MD [facility] 07-29-2023 21:33-0400 Systolic Blood Pressure Non-Invasive 125 mm[Hg] DR SAMIA MICHEL MD [facility] 07-29-2023 16:28-0400 Heart rate 54 /min JULY SMITHFIELD IT BUSINESS ANALYST-CDL FLATBED TRUCK DRIVER [facility] 07-29-2023 15:45-0400 Body temperature 97.34 [degF] JULY SMITHFIELD IT BUSINESS ANALYST-CDL FL[employer]ED TRUCK DRIVER [facility] 07-29-2023 15:45-0400 Diastolic Blood Pressure Non-Invasive 77 mm[Hg] JULY SMITHFIELD IT BUSINESS ANALYST-CDL [employer]ED TRUCK DRIVER [facility] 07-29-2023 15:45-0400 Heart rate 55 /min JULY SMITHFIELD IT BUSINESS ANALYST-CDL [employer]ED TRUCK DRIVER [facility] 07-29-2023 15:45-0400 Reason For Taking VItal Signs JULY SMITHFIELD IT BUSINESS ANALYST-CDL FL[employer]ED TRUCK DRIVER [facility] 07-29-2023 15:45-0400 Respiratory rate 16 /min JULY SMITHFIELD IT BUSINESS ANALYST-CDL FL[employer]ED TRUCK DRIVER [facility] 07-29-2023 15:45-0400 Systolic Blood Pressure Non-Invasive 124 mm[Hg] JULY SMITHFIELD IT BUSINESS ANALYST-CDL FL[employer]ED TRUCK DRIVER [facility] 07-29-2023 10:59-0400 Body temperature 97.52 [degF] JULY SMITHFIELD IT BUSINESS ANALYST-CDL FLAT[employer]ED TRUCK DRIVER [facility] 07-29-2023 10:59-0400 Diastolic Blood Pressure Non-Invasive 66 mm[Hg] JULY SMITHFIELD IT BUSINESS ANALYST-CDL FL[employer]ED TRUCK DRIVER [facility] 07-29-2023 10:59-0400 Heart rate 68 /min JULY SMITHFIELD IT BUSINESS ANALYST-CDL FLAT[employer]ED TRUCK DRIVER [facility] 07-29-2023 10:59-0400 Reason For Taking VItal Signs JULY SMITHFIELD IT BUSINESS ANALYST-CDL FL[employer]ED TRUCK DRIVER [facility] 07-29-2023 10:59-0400 Respiratory rate 16 /min JULY SMITHFIELD IT BUSINESS ANALYST-CDL FL[employer]ED TRUCK DRIVER [facility] 07-29-2023 10:59-0400 Systolic Blood Pressure Non-Invasive 98 mm[Hg] JULY SMITHFIELD IT BUSINESS ANALYST-CDL FLAT[employer]ED TRUCK DRIVER [facility] 07-29-2023 08:01-0400 Heart rate 69 /min JULY SMITHFIELD IT BUSINESS ANALYST-CDL FL[employer]ED TRUCK DRIVER [facility] 07-29-2023 07:23-0400 Body temperature 98.24 [degF] JULY SMITHFIELD IT BUSINESS ANALYST-CDL FL[employer] TRUCK DRIVER [facility] 07-29-2023 07:23-0400 Diastolic Blood Pressure Non-Invasive 83 mm[Hg] JULY SMITHFIELD IT BUSINESS ANALYST-CDL FL[employer]ED TR[employer] DRIVER [facility] 07-29-2023 07:23-0400 Reason For Taking VItal Signs JULY SMITHFIELD IT BUSINESS ANALYST-CDL FL[employer]ED TRUCK DRIVER [facility] 07-29-2023 07:23-0400 Respiratory rate 16 /min JULY SMITHFIELD IT BUSINESS ANALYST-CDL FL[employer]ED TRUCK DRIVER [facility] 07-29-2023 07:23-0400 Systolic Blood Pressure Non-Invasive 126 mm[Hg] JULY SMITHFIELD IT BUSINESS ANALYST-CDL FL[employer]ED TRUCK DRIVER [facility] 07-28-2023 17:25-0400 Mean blood pressure 80 mm[Hg] JULY SMITHFIELD IT BUSINESS ANALYST-CDL FL[employer]ED TRUCK DRIVER [facility] 07-28-2023 17:10-0400 Heart rate 109 /min JULY SMITHFIELD IT BUSINESS ANALYST-CDL FL[employer]ED TRUCK DRIVER [facility] 07-28-2023 15:02-0400 Mean blood pressure 86 mm[Hg] JULY SMITHFIELD IT BUSINESS ANALYST-CDL FL[employer]ED TR[employer] DRIVER [facility] 07-28-2023 11:52-0400 Mean blood pressure 88 mm[Hg] JULY SMITHFIELD IT BUSINESS ANALYST-CDL FL[employer]ED TRUCK DRIVER [facility] 07-28-2023 10:51-0400 Heart rate 129 /min JULY SMITHFIELD IT BUSINESS ANALYST-CDL FL[employer]ED TR[employer] DRIVER [facility] 07-28-2023 06:00-0400 Heart rate 113 /min JULY SMITHFIELD IT BUSINESS ANALYST-CDL [employer] TR[employer] DRIVER [facility] 07-28-2023 05:00-0400 Heart rate 124 /min JULY SMITHFIELD IT BUSINESS ANALYST-CDL [employer] TR[employer] DRIVER [facility] 07-28-2023 04:00-0400 Heart rate 122 /min JULY SMITHFIELD IT BUSINESS ANALYST-CDL [employer] TR[employer] DRIVER [facility] 07-28-2023 01:57-0400 Body height 182.9 cm JULY SMITHFIELD IT BUSINESS ANALYST-CDL [employer] TR[employer] DRIVER [facility] 07-28-2023 01:57-0400 Body weight 70.5 kg JULY SMITHFIELD IT BUSINESS ANALYST-CDL [employer] TR[employer] DRIVER [facility] 07-28-2023 01:57-0400 Body weight 21.07 kg/m2 JULY SMITHFIELD IT BUSINESS ANALYST-CDL FL[employer] TR[employer] DRIVER [facility] 07-28-2023 01:53-0400 Body temperature 98.6 [degF] JULY SMITHFIELD IT BUSINESS ANALYST-CDL [employer] TR[employer] DRIVER [facility] 07-27-2023 23:43-0400 Body weight 70.5 kg JULY SMITHFIELD IT BUSINESS ANALYST-CDL [employer] DRIVER [facility] 07-27-2023 23:40-0400 Body temperature 98.6 [degF] JULY SMITHFIELD IT BUSINESS ANALYST-CDL [employer] TR[employer] DRIVER [facility] 07-27-2023 19:52-0400 Body temperature 98.78 [degF] JULY SMITHFIELD IT BUSINESS ANALYST-CDL [employer] TR[employer] DRIVER [facility] 03-06-2022 08:35-0500 Body weight 75.89 kg Garth Moreno MD Work Phone: [facility] 03-06-2022 08:35-0500 Diastolic blood pressure 69 mm[Hg] Garth Moreno MD Work Phone: [facility] 03-06-2022 08:35-0500 Heart rate 82 /min Garth Moreno MD Work Phone: [facility] 03-06-2022 08:35-0500 Systolic blood pressure 109 mm[Hg] Garth Moreno MD Work Phone: [facility] Encounters Encounter Date Encounter Type Care Provider Facility Start: 08-27-2024 End: 08-27-[address] Kim Hutchinson MD Work Phone: [facility] Work Phone: Start: 08-27-2024 End: 08-27-2024 Patient encounter procedure Melissa Jonesing -Laboratory Work Phone: Start: 08-27-2024 End: 08-27-2024 ambulatory Melissa Campbell Facility:[facility] Start: 08-05-2024 End: 08-05-2024 ambulatory MD BECKY SCHAFFER Facility:[facility] Start: 08-05-2024 End: 08-05-2024 Patient encounter procedure BECKY SCHAFFER [facility] Start: 07-13-2024 End: 07-13-2024 Patient encounter procedure Garth Hendrix [facility] Work Phone: Start: 07-13-2024 End: 07-13-2024 ambulatory Garth FRANCIS Facility:[facility] Start: 06-07-2024 End: 06-07-2024 Emergency department patient visit DR SAMIA MICHEL MD [facility] Start: 05-26-2024 End: 05-26-2024 Patient encounter procedure Garth Hendrix [facility] Work Phone: Start: 05-26-2024 End: 05-26-2024 ambulatory Garth FRANCIS Facility:[facility] Start: 04-22-2024 End: 04-22-2024 Emergency department patient visit Jorje Alberto Facility:[facility] Start: 2024 End: 2024 Emergency department patient visit DR YULIET TREVINO DO [facility] Start: 04-06-2024 End: 04-06-2024 Emergency department patient visit AGUSTIN ACEVES DO [facility] Start: 03-31-2024 End: 03-31-2024 ambulatory Kim Hutchinson Facility:[facility] Start: 02-12-2024 Encounter for genera l adult medical examination without abnormal findings Kim Hutchinson [facility] Start: 02-06-2024 End: 02-06-2024 ambulatory [facility] Facility:[facility] Start: 02-06-2024 End: 02-06-2024 Patient encounter procedure Jumana Soliz APRN.CDL [employer]ATBED TRUCK DRIVER Work Phone: [facility] Comment on above: Acute conjunctivitis of right eye, unspecified acute conjunctivitis type (Primary Dx) Start: 01-23-2024 End: 01-23-2024 ambulatory Kim Lazarigor Facility:[facility] Start: 12-15-2023 ambulatory Melissatomi Campbell Edsoni ty:[facility] Start: 11-15-2023 End: 11-15-2023 ambulatory KASSANDRA MCGOVERN MD Facility:[facility] Start: 11-15-2023 End: 11-15-2023 Patient encounter procedure KASSANDRA MCGOVERN MD [facility] Start: 09-24-2023 End: 09-24-2023 Emergency department patient visit SEBAS HARDY MD [facility] Start: 09-24-2023 ambulatory Kami Sandhui ty:[facility] Start: 08-12-2023 Telephone encounter Amilcar Harris MD Work Phone: [facility] Comment on above: Results (MSSA); Need for antibiotic Start: 08-09-2023 End: 08-09-2023 ambulatory KIM Mikaela RAMOSIGOR Facility:[facility] Start: 08-09-2023 End: 08-09-2023 Patient encounter procedure Amilcar Veronica MD Work Phone: [facility] Comment on above: Umbilical discharge (Primary Dx) Start: 08-07-2023 End: 08-07-2023 ambulatory AMY LERNER APRN-CDL [employer] TRUCK DRIVER Facility:[facility] Start: 08-07-2023 End: 08-07-2023 Patient encounter procedure AMY LERNER IT BUSINESS ANALYST-CDL FLATBED TRUCK DRIVER [facility] Start: 07-29-2023 End: 07-29-2023 Emergency department patient visit DR SAMIA MICHEL MD [facility] Start: 07-27-2023 End: 07-29-2023 Evaluation and management of inpatient WINSOME ARRIETA IT BUSINESS ANALYST-CDL FLATBED TRUCK DRIVER [facility] Start: 07-26-2023 End: 07-26-2023 ambulatory [facility] Work Phone: Start: 07-26-2023 End: 07-26-2023 Patient encounter procedure [facility], [facility] Work Phone: Start: 06-07-2023 End: 06-07-2023 ambulatory [facility] Work Phone: Start: 06-07-2023 End: 06-07-2023 Patient encounter procedure [facility], [facility] Start: 03-28-2023 End: 03-28-2023 ambulatory [facility] Work Phone: Start: 03-28-2023 End: 03-28-2023 Patient encounter procedure [facility]Cat Scan, [facility] Work Phone: Start: 01-01-2023 End: 01-01-2023 ambulatory [facility] Work Phone: Start: 01-01-2023 End: 01-01-2023 Patient encounter procedure [facility], [facility] Start: 03-06-2022 End: 03-06-2022 Patient encounter procedure Garth Moreno MD Work Phone: [facility] Comment on above: alcohol syndro me (Primary Dx); Development delay; Unspecified intellectual disabilities; Mixed 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); Major depressive disorder, remission status unspecified, unspecified whether recurrent; SYED (generalized anxiety disorder) Start: 02-10-2022 End: 02-10-2022 ambulatory [facility] Work Phone: Start: 02-10-2022 End: 02-10-2022 Patient encounter procedure [facility]Cat [facility], [facility] Start: 01-16-2022 End: 01-16-2022 ambulatory [facility] Work Phone: Start: 01-16-2022 End: 01-16-2022 Patient encounter procedure [facility] Start: 01-01-2022 End: 01-01-2022 ambulatory [facility] Work Phone: Start: 01-01-2022 End: 01-01-2022 Patient encounter procedure [facility]Cat Scan, [facility] Start: 12-26-2021 End: 12-26-2021 ambulatory [facility] Work Phone: Start: 12-26-2021 End: 12-26-2021 Patient encounter procedure [facility], [place] Start: 10-26-2021 End: 10-26-2021 Patient encounter procedure MOJGAN FANG MD [facility] Procedures Date Procedure Procedure Detail Performing Clinician Start: 07-29-2023 Echocardiography MARTINA HARDY MD Comment on above: 1. Left ventricle: T he cavity size is normal. Wall thickness is normal. Systolic function is normal. The estimated ejection fraction is 55-60%. Wall motion is normal; there are no regional wall motion abnormalities. Normal diastolic function. 2. Ventricular septum: Septal motion is dyssynergic. 3. Aortic valve: There is trivial regurgitation. 4. Mitral valve: There is mild regurgitation. 5. Right ventricle: The RV systolic pressure by Doppler is 31 mm Hg. 6. Right atrium: The atrium is mildly dilated. The estimated right atrial pressure is 8 mm Hg. Start: 07-26-2023 Urine culture Start: 03-28-2023 CT of chest Start: 02-10-2022 CT of head without contrast Start: 01-01-2022 CT of chest Start: 12-04-2007 Colonoscopy Garth obrien MD Work Phone: Start: 07-23-2006 Lipid 1996 panel - S ashly or Plasma Amilcar Veronica MD Work Phone: Urine culture Plan of Treatment Date Care Activity Detail Author Start: 12-15-2023 Covid-19 Vaccine () Covid-19 Vaccine () [facility] Start: 12-15-2023 Influenza vaccination Influenza Vacc ine (#1) [facility] Start: 04-15-2023 Advance Directive Discussion Advance Directive Discussion [facility] Start: 12-14-2022 Covid-19 Vaccine () Covid-19 Vaccine () [facility] Start: 12-14-2021 Influenza vaccination INFLUENZA (#1) [facility] Start: 04-15-2021 ADVANCE DIRECTIVE DISCUSSION ADVANCE DIRECTIVE DISCUSSION [facility] Start: 12-03-2017 Colonoscopy COLONOSCOPY [facility] Start: 12-03-2017 COLORECTAL CANCER SCREENING COLORECTAL CANCER SCREENING [facility] Start: 12-03-2017 Screening for malign ant neoplasm of colon [facility] Start: 07-24-2011 Lipid panel Lipid Screening [facility] Start: 07-24-2011 LIPID SCREEN LIPID SCREEN [facility] Start: 07-02-2011 DIABETES SCREEN DIABETES SCREEN [facility] Start: 07-02-2011 Diabetes Screening Diabetes Screenin g [facility] Start: 2010 RSV Vaccine (1 - 1-d ose 60+ series) RSV Vaccine (1 - 1-dose 60+ series) [facility] Start: 2010 RSV Vaccine (1 - Ris k 60-74 years 1-dose series) RSV Vaccine (1 - Risk 60-74 years 1-dose series) [facility] Start: 2000 SHINGRIX VACCINE (1 of 2) SHINGRIX VACCINE (1 of 2) [facility] Start: 1995 COLOGUARD (FIT-DNA) COLOGUARD (FIT-D NA) [facility] Start: [address] COLONOGRAPHY [facility] Start: 1995 FECAL OCCULT BLOOD FECAL OCCULT BLOO D [facility] Start: 1995 Screening for malign ant neoplasm of colon [facility] Start: 1995 SIGMOIDOSCOPY SIGMOIDOSCOPY [facility] Start: 1969 Urine microalbumin profile [facility] Start: 1968 HEPATITIS C SCREENING HEPATITIS C [facility] Start: 1968 Hepatitis C screening Hepatitis C [facility] Start: 1956 Pneumococcal Vaccine : 65+ (1 of 2 - PCV) Pneumococcal Vaccine: 65+ (1 of 2 - PCV) [facility] Start: 1956 PNEUMOCOCCAL: 65+ (1 - PCV) PNEUMOCOCCAL: 65+ (1 - PCV) [facility] Start: 1950 COVID-19 VACCINE (#1) COVID-19 VACCI NE (#1) [facility] Start: 1950 ABDOMINAL AORTIC ANEURYSM SCREENING ABDOMINAL AORTIC ANEURYSM SCREENING [facility] Start: 1950 Abdominal aortic aneurysm screening Abdominal Aortic Aneurysm Screening [facility] Bacteria identified in Wound by Culture ABSCESS AND WOUND CULTURE WITH GRAM STAIN Microbiology Routine Umbilical discharge Ordered: 08/09/2023 [facility] Work Phone: Comment on above: Ordered: 08/09/2023 Immunizations Immunization Date Immunization Notes Care Provider Christa maloney 12-14-2022 influenza virus vaccine, unspecified formulation [facility] IT BUSINESS ANALYST-99tests [facility] 02-01-2022 SARS-CoV-2 (CV19)mRNA-1273 bivalent vac JULY SMITHFIELD IT BUSINESS ANALYST-CDL FLATBED TRUCK DRIVER [facility] 03-20-2021 SARS-CoV-2 (COVID-19 ) mRNA-1273 vaccine [facility] IT BUSINESS ANALYST-CDL FLATBED TRUCK DRIVER [facility] 08-04-2020 SARS-CoV-2 (COVID-19 ) mRNA-1273 vaccine [facility] IT BUSINESS ANALYSTJaxtr [facility] Comment on above: Result Comment: 2023: [id number] 07-07-2020 SARS-CoV-2 (COVID-19 ) mRNA-1273 vaccine [facility] IT BUSINESS ANALYST-CDL FLATBED TRUCK DRIVER [facility] Comment on above: Result Comment: 2023: [id number] 03-17-2008 influenza virus vaccine, unspecified formulation Garth Moreno MD Work Phone: [facility] Work Phone: 02-14-2006 influenza virus vaccine, unspecified formulation Garth Moreno MD Work Phone: [facility] Work Phone: Payers Date Payer Category Payer Medicare [id number] 2023 Self-pay [id number] 2015 Medicaid [id number] 2015 Medicaid [id number] 1990 Medicare [id number] 1990 Medicare [id number] 1950 Unknown [id number] 2.16.8 [id number] 1950 Unknown [id number] 2.16.8 [id number] 1950 Unknown [id number] 2.16.8 [id number] 1950 Unknown [id number] 2.16.8 [id number] 1950 Unknown [id number] 2.16.8 40.1.518443.3.579.2.7 1950 Unknown [id number] 2.16.8 [id number] 1950 Unknown [id number] 2.16.8 [id number] 1950 Unknown [id number] 2.16.8 [id number] 1950 Unknown [id number] 2.16.8 [id number] Private Health Insurance [facility] [id number] Unknown [id number] 2.16.8 [id number] Unknown [id number] 2.16.8 [id number] Unknown [id number] 2.16.8 [id number] Unknown [id number] 2.16.8 [id number] Unknown [id number] 2.16.8 [id number] Unknown [id number] 2.16.8 [id number] Unknown [id number] 2.16.8 [id number] Unknown [id number] 2.16.8 [id number] Social History Date Type Detail Facility Start: 04-03-2019 Tobacco smoking status Heavy t obacco smoker (finding) [facility] Sex Assigned At [facility] Start: 12-02-2017 End: 12-02-2017 Tobacco smoking status RIIS Unknown if ever smoked [facility] Start: 12-02-2017 Cigarettes [facility] Start: 1950 Sex Assigned At Male W [facility] Start: 03-06-2022 End: 04-22-2024 Tobacco smoking status NHIS Smokes tobacco daily [facility] History of tobacco use Cigarette Smoker C [facility] Start: 03-06-2022 End: 08-09-2023 Cigarettes smoked current (pack per day) - Reported 0.5 [facility] Start: 03-06-2022 End: 02-06-2024 Tobacco use and exposure Smokeless tobacco non-user [facility] Start: 03-06-2022 End: 02-06-2024 Alcohol intake Current non-drinker of alcohol (finding) [facility] Start: 03-06-2022 Tobacco Comment maybe longer s moke hx difficult to asses [facility] Start: 1950 Sex Assigned At Not on file C [facility] Start: 02-24-2022 End: 03-06-2022 Exposure to SARS-CoV-2 (event) Not sure [facility] Start: 12-17-2018 End: 08-09-2023 Tobacco use panel [facility] Adult Depression Screening Assessment 0 [facility] Start: 05-24-2005 Sex Male (finding) [facility] Medical Equipment Procedure Code Equipment Code Equipment Origin al Text Equipment Identifier Dates See Instructions , Glucometer, alcohol swabs, lancets., # 1 EA, 0 Refill(s), Pharmacy: [facility]/pharmacy #[id number], 182.9, cm, 07/28/23 1:57:00 EDT, Height, 70.5, kg, 07/28/23 1:57:00 EDT, Dosing Weight Start: 07-29-2023 See Instructions , Lancets for glucose to be checked TID., # 1 EA, 0 Refill(s), Pharmacy: [facility]/pharmacy #[id number], Type 2 diabetes mellitus, 182.9, cm, 07/28/23 1:57:00 EDT, Height, 70.5, kg, 07/28/23 1:57:00 EDT, Dosing Weight Start: 07-29-2023 See Instructions , 90 Glucometer strips., # 1 EA, 0 Refill(s), Pharmacy: [facility]/pharmacy #[id number], Type 2 diabetes mellitus, 182.9, cm, 07/28/23 1:57:00 EDT, Height, 70.5, kg, 07/28/23 1:57:00 EDT, Dosing Weight Start: 07-29-2023 See Instructions , Glucometer, alcohol swabs, lancets., # 1 EA, 0 Refill(s), [id number], 182.9, cm, 07/28/23 1:57:00 EDT, Height, 70.5, kg, 07/28/23 1:57:00 EDT, Dosing Weight Start: 07-29-2023 See Instructions , Lancets for glucose to be checked TID., # 1 EA, 0 Refill(s), [id number], Type 2 diabetes mellitus, 182.9, cm, 07/28/23 1:57:00 EDT, Height, 70.5, kg, 07/28/23 1:57:00 EDT, Dosing Weight Start: 07-29-2023 See Instructions , 90 Glucometer strips., # 1 EA, 0 Refill(s), [id number], Type 2 diabetes mellitus, 182.9, cm, 07/28/23 1:57:00 EDT, Height, 70.5, kg, 07/28/23 1:57:00 EDT, Dosing Weight Start: 07-29-2023 See Instructions , Glucometer, alcohol swabs, lancets., # 1 EA, 0 Refill(s), [id number], 182.9, cm, 07/28/23 1:57:00 EDT, Height, 70.5, kg, 07/28/23 1:57:00 EDT, Dosing Weight Start: 07-29-2023 See Instructions , Lancets for glucose to be checked TID., # 1 EA, 0 Refill(s), [id number], Type 2 diabetes mellitus, 182.9, cm, 07/28/23 1:57:00 EDT, Height, 70.5, kg, 07/28/23 1:57:00 EDT, Dosing Weight Start: 07-29-2023 See Instructions , 90 Glucometer strips., # 1 EA, 0 Refill(s), [id number], Type 2 diabetes mellitus, 182.9, cm, 07/28/23 1:57:00 EDT, Height, 70.5, kg, 07/28/23 1:57:00 EDT, Dosing Weight Start: 07-29-2023 See Instructions , Glucometer, alcohol swabs, lancets., # 1 EA, 0 Refill(s), [id number], 182.9, cm, 07/28/23 1:57:00 EDT, Height, 70.5, kg, 07/28/23 1:57:00 EDT, Dosing Weight Start: 07-29-2023 See Instructions , Lancets for glucose to be checked TID., # 1 EA, 0 Refill(s), [id number], Type 2 diabetes mellitus, 182.9, cm, 07/28/23 1:57:00 EDT, Height, 70.5, kg, 07/28/23 1:57:00 EDT, Dosing Weight Start: 07-29-2023 See Instructions , 90 Glucometer strips., # 1 EA, 0 Refill(s), Pharmacy: [facility] #[id number], Type 2 diabetes mellitus, 182.9, cm, 07/28/23 1:57:00 EDT, Height, 70.5, kg, 07/28/23 1:57:00 EDT, Dosing Weight Start: 07-29-2023 See Instructions , Glucometer, alcohol swabs, lancets., # 1 EA, 0 Refill(s), [id number], 182.9, cm, 07/28/23 1:57:00 EDT, Height, 70.5, kg, 07/28/23 1:57:00 EDT, Dosing Weight Start: 07-29-2023 See Instructions , Lancets for glucose to be checked TID., # 1 EA, 0 Refill(s), [id number], Type 2 diabetes mellitus, 182.9, cm, 07/28/23 1:57:00 EDT, Height, 70.5, kg, 07/28/23 1:57:00 EDT, Dosing Weight Start: 07-29-2023 See Instructions , 90 Glucometer strips., # 1 EA, 0 Refill(s), [id number], Type 2 diabetes mellitus, 182.9, cm, 07/28/23 1:57:00 EDT, Height, 70.5, kg, 07/28/23 1:57:00 EDT, Dosing Weight Start: 07-29-2023 Start: 10-10-2023 See Instructions , Glucometer, alcohol swabs, lancets., # 1 EA, 0 Refill(s), Pharmacy: [facility]/pharmacy #[id number], 182.9, cm, 07/28/23 1:57:00 EDT, Height, 70.5, kg, 07/28/23 1:57:00 EDT, Dosing Weight Start: 07-29-2023 See Instructions , Lancets for glucose to be checked TID., # 1 EA, 0 Refill(s), Pharmacy: [facility]/pharmacy #[id number], Type 2 diabetes mellitus, 182.9, cm, 07/28/23 1:57:00 EDT, Height, 70.5, kg, 07/28/23 1:57:00 EDT, Dosing Weight Start: 07-29-2023 See Instructions , 90 Glucometer strips., # 1 EA, 0 Refill(s), [id number], Type 2 diabetes mellitus, 182.9, cm, 07/28/23 1:57:00 EDT, Height, 70.5, kg, 07/28/23 1:57:00 EDT, Dosing Weight Start: 07-29-2023 See Instructions , Glucometer, alcohol swabs, lancets., # 1 EA, 0 Refill(s), [id number], 182.9, cm, 07/28/23 1:57:00 EDT, Height, 70.5, kg, 07/28/23 1:57:00 EDT, Dosing Weight Start: 07-29-2023 See Instructions , Lancets for glucose to be checked TID., # 1 EA, 0 Refill(s), Pharmacy: [facility]/pharmacy #[id number], Type 2 diabetes mellitus, 182.9, cm, 07/28/23 1:57:00 EDT, Height, 70.5, kg, 07/28/23 1:57:00 EDT, Dosing Weight Start: 07-29-2023 See Instructions , 90 Glucometer strips., # 1 EA, 0 Refill(s), Pharmacy: [facility]/pharmacy #[id number], Type 2 diabetes mellitus, 182.9, cm, 07/28/23 1:57:00 EDT, Height, 70.5, kg, 07/28/23 1:57:00 EDT, Dosing Weight Start: 07-29-2023 See Instructions , Glucometer, alcohol swabs, lancets., # 1 EA, 0 Refill(s), [id number], 182.9, cm, 07/28/23 1:57:00 EDT, Height, 70.5, kg, 07/28/23 1:57:00 EDT, Dosing Weight Start: 07-29-2023 See Instructions , Lancets for glucose to be checked TID., # 1 EA, 0 Refill(s), [id number], Type 2 diabetes mellitus, 182.9, cm, 07/28/23 1:57:00 EDT, Height, 70.5, kg, 07/28/23 1:57:00 EDT, Dosing Weight Start: 07-29-2023 See Instructions , 90 Glucometer strips., # 1 EA, 0 Refill(s), [id number], Type 2 diabetes mellitus, 182.9, cm, 07/28/23 1:57:00 EDT, Height, 70.5, kg, 07/28/23 1:57:00 EDT, Dosing Weight Start: 07-29-2023 See Instructions , Glucometer, alcohol swabs, lancets., # 1 EA, 0 Refill(s), [id number], 182.9, cm, 07/28/23 1:57:00 EDT, Height, 70.5, kg, 07/28/23 1:57:00 EDT, Dosing Weight Start: 07-29-2023 See Instructions , Lancets for glucose to be checked TID., # 1 EA, 0 Refill(s), Pharmacy: [facility]/pharmacy #[id number], Type 2 diabetes mellitus, 182.9, cm, 07/28/23 1:57:00 EDT, Height, 70.5, kg, 07/28/23 1:57:00 EDT, Dosing Weight Start: 07-29-2023 See Instructions , 90 Glucometer strips., # 1 EA, 0 Refill(s), [id number], Type 2 diabetes mellitus, 182.9, cm, 07/28/23 1:57:00 EDT, Height, 70.5, kg, 07/28/23 1:57:00 EDT, Dosing Weight Start: 07-29-2023 Functional Status Date Assessment Result Facility 06-07-2024 Functional Status Minimum assistance [facility] 06-07-2024 Functional Status Awake [facility] 2024 Functional Status Assistive Device None A [facility] 2024 Functional Status Ambulation in [place], Ambulation in Room [facility] 04-06-2024 Functional Status ID band on, Call device within reach, Bed in low position, Wheels locked, Upper/Half-Length side-rails up, Visitor at bedside, Safety level maintained [facility] 09-24-2023 Functional Status ID band on, Call device within reach, Bed in low position, Wheels locked, Upper/Half-Length side-rails up, Bedside Cart Locked, Visitor at bedside, Safety level maintained [facility] 07-29-2023 Functional Status Awake, Resting [facility] 07-29-2023 Functional Status Room check performed [facility] 07-29-2023 Functional Status [facility] 07-29-2023 Functional Status [facility] 07-29-2023 Functional Status Lunch Percent [address] [facility] 07-29-2023 Functional [facility] [facility] 07-28-[address] [facility] 07-28-[address] [facility] 07-28-2023 Functional Status Single level home [facility] 07-28-[address] [facility] 07-28-2023 [facility] Functional Status Sensory Deficits None A [facility] Mental Status Date Assessment Result Facility 06-07-2024 Mental Status Orientation Foll ows simple commands [facility] 06-07-2024 Mental Status [facility] 2024 Mental Status Orientation Oriented x 4 [facility] 2024 Mental Status [facility] 04-06-2024 Mental Status Oriented x 4 [facility] 09-24-2023 Mental Status Orientation Othe r: alert and oriented at baseline [facility] 07-29-2023 Mental Status Forgetful [facility] 07-29-2023 Mental Status Follows simple commands [facility] 07-29-2023 Mental Status [facility] 07-28-2023 Mental Status [facility] Clinical Notes 03-17-2021 to 06-07-2024 Note Date & Type Note Facility 06-07-2024 Hospital Discharg e instructions Patient Education 06/07/2024 15:54:56 Seizure, New Onset, Unknown Cause (Adult) Seizure: New Onset with Unknown Cause (Adult) You have had a seizure today. A seizure happens when a burst of random, uncontrolled electrical activity occurs in the brain. A seizure can have many causes. Often it s not possible to figure out the exact cause of a seizure from a single exam. You might need other tests. Having a single seizure doesn t mean that you will continue to have seizures or that you have epilepsy. But until doctors know the cause of your seizure, you should assume that another seizure is possible. Home care Follow these tips when caring for yourself at home. For this seizure: Seizures aren t predictable. So avoid doing anything that might cause danger to you or other people if you have another seizure. Don t drive, ride a bike, or operate dangerous equipment. Don t take a bath alone. Take a shower instead. Don t swim alone until your healthcare provider says that you are no longer in danger of having another seizure. Tell your close friends and relatives about your seizure. Teach them what to do for you if it happens again. If medicine was prescribed to prevent seizures, take it exactly as directed. It does not work when taken as needed. Missing doses will increase the risk of having another seizure. Follow a regular sleep schedule such that you get at least 6 to 8 hours of restful sleep every night. This is especially important when you are sick and have a cold, flu, or another type of infection. Don't drink alcoholic beverages until your doctor says it's OK. Do not ever use recreational drugs. For future seizures, if you are alone: If you feel a seizure coming on, lie down on a bed or on the floor with something soft under your head. Lie on your left side, not on your back. This will keep you from falling. It will also let fluid drain out of your mouth and prevent choking. Be sure you are clear of any objects that might injure you during the seizure. Call 911 if there is time. For future seizures, if someone is with you: The person should help you get into a safe position and call 911. The person shouldn t try to force anything in your mouth once the seizure begins. This could harm your teeth or jaw. After a seizure, you may be drowsy or confused. The person should stay with you until you are fully awake. The person shouldn t offer you anything to eat or drink during that time. Call 911 or go to the emergency department so that you can be looked at. Follow-up care Follow up with your healthcare provider, or as advised. You may need other tests to help figure out what caused your seizure. These tests may include brain wave tests (EEG) or brain scans (MRI or CT scans). Keep a seizure calendar to record how often you have a seizure. If you are being started on anti-seizure medicine, make sure that you use additional control protection. Seizure medicine can affect how well control pills work, and you could become . Don't drink alcohol until your doctor tells you it s OK. Do not ever use recreational drugs. Note: For the safety of yourself and others on the road, certain states require that the treating doctor tell the Public Health Department about any adult who is treated for a seizure and is at risk of more seizures. In this case, the department of motor vehicles will be told. A restriction will be put on your chair car driver s license until a doctor gives you medical clearance to drive again. Contact your treating doctor to find out if your state requires the reporting of patients with a seizures condition. When to seek medical advice Call your healthcare provider right away if any of these occur: Another seizure Fever of 100.4 F (38 C) or higher, or as directed by your healthcare provider Unusual irritability, drowsiness, or confusion Headache or neck pain that gets worse 6601-2107 [employer]. [address] [place] [address]. All rights reserved. This information is not intended as a substitute for professional medical care. Always follow your healthcare professional's instructions. 06/07/2024 15:54:48 Sinusitis (Antibiotic Treatment) Sinusitis (Antibiotic Treatment) The sinuses are air-filled spaces within the bones of the face. They connect to the inside of the nose. Sinusitis is an inflammation of the tissue that lines the sinuses. Sinusitis can occur during a cold. It can also happen due to allergies to pollens and other particles in the air. Sinusitis can cause symptoms of sinus congestion and a feeling of fullness. A sinus infection causes fever, headache, and facial pain. There is often green or yellow fluid draining from the nose or into the back of the throat (post-nasal drip). You have been given antibiotics to treat this condition. Home care Take the full course of antibiotics as instructed. Do not stop taking them, even when you feel better. Drink plenty of water, hot tea, and other liquids. This may help thin nasal mucus. It also may help your sinuses drain fluids. Heat may help soothe painful areas of your face. Use a towel soaked in hot water. Or, finish sander the shower and direct the warm spray onto your face. Using a vaporizer along with a menthol rub at night may also help soothe symptoms. An expectorant with guaifenesin may help thin nasal mucus and help your sinuses drain fluids. You can use an aegv-mfy-gilkigy decongestant, unless a similar medicine was prescribed to you. Nasal sprays work the fastest. Use one that contains phenylephrine or oxymetazoline. First blow your nose gently. Then use the spray. Do not use these medicines more often than directed on the label. If you do, your symptoms may get worse. You may also take pills that contain pseudoephedrine. Don t use products that combine multiple medicines. This is because side effects may be increased. Read labels. You can also ask the pharmacist for help. (People with high blood pressure should not use decongestants. They can raise blood pressure.) Sicc-bvs-jgtqirr antihistamines may help if allergies contributed to your sinusitis. Do not use nasal rinses or irrigation during an acute sinus infection, unless your healthcare provider tells you to. Rinsing may spread the infection to other areas in your sinuses. Use acetaminophen or ibuprofen to control pain, unless another pain medicine was prescribed to you. If you have chronic liver or kidney disease or ever had a stomach ulcer, talk with your healthcare provider before using these medicines. (Aspirin should never be taken by anyone under age 18 who is ill with a fever. It may cause severe liver damage.) Don't smoke. This can make symptoms worse. Follow-up care Follow up with your healthcare provider or our staff if you are not better in 1 week. When to seek medical advice Call your healthcare provider if any of these occur: Facial pain or headache that gets worse Stiff neck Unusual drowsiness or confusion Swelling of your forehead or eyelids Vision problems, such as blurred or double vision Fever of 100.4 F (38 C) or higher, or as directed by your healthcare provider Seizure Breathing problems Symptoms don't go away in 10 days Prevention Here are steps you can take to help prevent an infection: Keep good hand washing habits. Don t have close contact with people who have sore throats, colds, or other upper respiratory infections. Don t smoke, and stay away from secondhand smoke. Stay up to date with of your vaccines. 7128-8985 [employer]. [address] [place] [address]. All rights reserved. This information is not intended as a substitute for professional medical care. Always follow your healthcare professional's instructions. Follow Up Care 06/07/2024 12:43:01 With:KIM HUTCHINSON Address: [address] [place] [phone] When:2-4 days [facility] 06-07-2024 Note Discharge Instructions Thank you for allowing [facility] to assist you with your healthcare needs. The following is important discharge information regarding your hospital visit. Diagnosis from Today's Visit Seizure Sinusitis What to Do Next Instructions from Your Care Team Please follow-up with your family physician to obtain an EEG to further evaluate if this is a seizure disorder No qualifying data available. Post Acute Orders No qualifying data available. You Need to Schedule the Following Appointments Follow Up with KIM HUTCHINSON When:Within 2-4 days Where:[address] [place] [address] [phone] Allergies Bactrim amoxicillin Medications Please ask your primary doctor or pharmacist before taking any other medication not listed, including over the counter drugs, herbal medications, vitamins and or supplements as they may interact with your home medications. What How Much When Why Instructions Last Dose New clindamycin (clindamycin 300 mg oral capsule) 1 cap by mouth Every 6 hours Duration: 10 Days Printed Prescription Unchanged apixaban (apixaban 5 mg oral tablet) 1 tab(s) by mouth Two (2) times a day Duration: 30 Days Unchanged busPIRone (busPIRone 10 mg oral tablet) 2 tab(s) by mouth Three (3) times a day Unchanged dexamethasone-tobramycin ophthalmic (Tobradex ophthalmic ointment) Unchanged DME (DME MISCellaneous) See instructions Glucometer, alcohol swabs, lancets. Unchanged DME (DME MISCellaneous) See instructions Type 2 diabetes mellitus 90 Glucometer strips. Unchanged DME (DME MISCellaneous) See instructions Check blood glucose level twice daily at 8AM and 8PM. Unchanged DME (DME MISCellaneous) See instructions Pen needles. Unchanged DME (DME MISCellaneous) See instructions alcohol swabs. Unchanged DME (DME MISCellaneous) See instructions Type 2 diabetes mellitus Lancets for glucose to be checked TID. Unchanged DME (DME MISCellaneous) See instructions Type 2 diabetes mellitus Pen needles-120. Unchanged DME (DME MISCellaneous) See instructions Type 2 diabetes mellitus GLucometer. Unchanged DME (DME MISCellaneous) See instructions Type 2 diabetes mellitus Glucometer-Check glucose TIDAC. Unchanged donepezil (Aricept 5 mg oral tablet) 1 tab(s) by mouth Daily at bedtime Unchanged escitalopram (escitalopram 20 mg oral tablet) 1 tab(s) by mouth Once a day Unchanged finasteride (finasteride 5 mg oral tablet) 1 tab(s) by mouth Once a day Unchanged gabapentin (gabapentin 100 mg oral capsule) 1 cap by mouth Two (2) times a day Unchanged insulin glargine (Basaglar 100 unit(s)/ mL 3 mL KwikPen) 8 unit(s) Subcutaneous Once a day (in the morning) Unchanged latanoprost-timolol ophthalmic (latanoprost-timolol 0.005%-0.5% ophthalmic solution) Unchanged loratadine (loratadine 10 mg oral capsule) 1 cap by mouth Once a day Unchanged metFORMIN (MetFORMIN (Eqv-Glucophage XR) 500 mg oral tablet, EXTENDED RELEASE) 1 tab(s) by mouth Once a day (in the morning) 1 tab every morning. To be taken with food. Unchanged metoprolol (metoprolol succinate 25 mg oral TABLET extended release) 0.25 tab(s) by mouth Twice daily with meals Unchanged multivitamin (Multivitamin) 1 tab(s) by mouth Every day Unchanged nystatin topical (nystatin 100,000 units/ g topical cream) Unchanged oxybutynin (oxybutynin 10 mg/ 24 hr oral tablet, extended release) 1 tab(s) by mouth Once a day Please take this list to your next doctor s visit. Bring all medications you take, including over the counter medications, herbals and other supplements with you to your doctor s visit. Patients and families are reminded to discard old lists and to update any records with all medication providers or retail pharmacies. Education Materials Seizure: New Onset with Unknown Cause (Adult) You have had a seizure today. A seizure happens when a burst of random, uncontrolled electrical activity occurs in the brain. A seizure can have many causes. Often it s not possible to figure out the exact cause of a seizure from a single exam. You might need other tests. Having a single seizure doesn t mean that you will continue to have seizures or that you have epilepsy. But until doctors know the cause of your seizure, you should assume that another seizure is possible. Home care Follow these tips when caring for yourself at home. For this seizure: Seizures aren t predictable. So avoid doing anything that might cause danger to you or other people if you have another seizure. Don t drive, ride a bike, or operate dangerous equipment. Don t take a bath alone. Take a shower instead. Don t swim alone until your healthcare provider says that you are no longer in danger of having another seizure. Tell your close friends and relatives about your seizure. Teach them what to do for you if it happens again. If medicine was prescribed to prevent seizures, take it exactly as directed. It does not work when taken as needed. Missing doses will increase the risk of having another seizure. Follow a regular sleep schedule such that you get at least 6 to 8 hours of restful sleep every night. This is especially important when you are sick and have a cold, flu, or another type of infection. Don't drink alcoholic beverages until your doctor says it's OK. Do not ever use recreational drugs. For future seizures, if you are alone: If you feel a seizure coming on, lie down on a bed or on the floor with something soft under your head. Lie on your left side, not on your back. This will keep you from falling. It will also let fluid drain out of your mouth and prevent choking. Be sure you are clear of any objects that might injure you during the seizure. Call 911 if there is time. For future seizures, if someone is with you: The person should help you get into a safe position and call 911. The person shouldn t try to force anything in your mouth once the seizure begins. This could harm your teeth or jaw. After a seizure, you may be drowsy or confused. The person should stay with you until you are fully awake. The person shouldn t offer you anything to eat or drink during that time. Call 911 or go to the emergency department so that you can be looked at. Follow-up care Follow up with your healthcare provider, or as advised. You may need other tests to help figure out what caused your seizure. These tests may include brain wave tests (EEG) or brain scans (MRI or CT scans). Keep a seizure calendar to record how often you have a seizure. If you are being started on anti-seizure medicine, make sure that you use additional control protection. Seizure medicine can affect how well control pills work, and you could become . Don't drink alcohol until your doctor tells you it s OK. Do not ever use recreational drugs. Note: For the safety of yourself and others on the road, certain states require that the treating doctor tell the Public Health Department about any adult who is treated for a seizure and is at risk of more seizures. In this case, the department of motor vehicles will be told. A restriction will be put on your chair car driver s license until a doctor gives you medical clearance to drive again. Contact your treating doctor to find out if your state requires the reporting of patients with a seizures condition. When to seek medical advice Call your healthcare provider right away if any of these occur: Another seizure Fever of 100.4 F (38 C) or higher, or as directed by your healthcare provider Unusual irritability, drowsiness, or confusion Headache or neck pain that gets worse [phone] [employer]. [address] [place] [address], [place] [address]. All rights reserved. This information is not intended as a substitute for professional medical care. Always follow your healthcare professional's instructions. Sinusitis (Antibiotic Treatment) The sinuses are air-filled spaces within the bones of the face. They connect to the inside of the nose. Sinusitis is an inflammation of the tissue that lines the sinuses. Sinusitis can occur during a cold. It can also happen due to allergies to pollens and other particles in the air. Sinusitis can cause symptoms of sinus congestion and a feeling of fullness. A sinus infection causes fever, headache, and facial pain. There is often green or yellow fluid draining from the nose or into the back of the throat (post-nasal drip). You have been given antibiotics to treat this condition. Home care Take the full course of antibiotics as instructed. Do not stop taking them, even when you feel better. Drink plenty of water, hot tea, and other liquids. This may help thin nasal mucus. It also may help your sinuses drain fluids. Heat may help soothe painful areas of your face. Use a towel soaked in hot water. Or, finish sander the shower and direct the warm spray onto your face. Using a vaporizer along with a menthol rub at night may also help soothe symptoms. An expectorant with guaifenesin may help thin nasal mucus and help your sinuses drain fluids. You can use an rhtt-ydw-czygmfm decongestant, unless a similar medicine was prescribed to you. Nasal sprays work the fastest. Use one that contains phenylephrine or oxymetazoline. First blow your nose gently. Then use the spray. Do not use these medicines more often than directed on the label. If you do, your symptoms may get worse. You may also take pills that contain pseudoephedrine. Don t use products that combine multiple medicines. This is because side effects may be increased. Read labels. You can also ask the pharmacist for help. (People with high blood pressure should not use decongestants. They can raise blood pressure.) Diqy-vya-anftzlc antihistamines may help if allergies contributed to your sinusitis. Do not use nasal rinses or irrigation during an acute sinus infection, unless your healthcare provider tells you to. Rinsing may spread the infection to other areas in your sinuses. Use acetaminophen or ibuprofen to control pain, unless another pain medicine was prescribed to you. If you have chronic liver or kidney disease or ever had a stomach ulcer, talk with your healthcare provider before using these medicines. (Aspirin should never be taken by anyone under age 18 who is ill with a fever. It may cause severe liver damage.) Don't smoke. This can make symptoms worse. Follow-up care Follow up with your healthcare provider or our staff if you are not better in 1 week. When to seek medical advice Call your healthcare provider if any of these occur: Facial pain or headache that gets worse Stiff neck Unusual drowsiness or confusion Swelling of your forehead or eyelids Vision problems, such as blurred or double vision Fever of 100.4 F (38 C) or higher, or as directed by your healthcare provider Seizure Breathing problems Symptoms don't go away in 10 days Prevention Here are steps you can take to help prevent an infection: Keep good hand washing habits. Don t have close contact with people who have sore throats, colds, or other upper respiratory infections. Don t smoke, and stay away from secondhand smoke. Stay up to date with of your vaccines. 6532-7624 [employer]. [address] [place] [address], [place] [address]. All rights reserved. This information is not intended as a substitute for professional medical care. Always follow your healthcare professional's instructions. Additional Information VACCINATE! IT SAVES LIVES! Members of the community who have not yet received the COVID-19 vaccine and would like to receive it can visit one of [facility] vaccine clinics. There are many vaccine clinic locations within the [facility]. For locations and available times, please visit [email or web address].[email or web address] [email or web address] It is important to note that some COVID mobile vaccine clinics are held outdoors and may be canceled in rainy or stormy conditions. To learn more about pediatric vaccinations (ages 5-11), we invite you to visit the [employer]page. https://www.[email or web address].org/p ages/5937-Gggvf-Dnzdkpxlezv-Freq jzspkg-Jxbwf-Uewatfqkq.html To learn more about the COVID-19 vaccine, we invite you to visit the CDC website for a list of frequently asked questions. https://www.cdc.gov/coronavirus/ 2019-ncov/vaccines/faq.html [facility] Patient Portal Access Instructions: Stay connected with your healthcare team and access your personal medical information anytime with the [facility] Patient Portal. If you would like a full copy of your medical records please contact the [facility] Medical Records Department Saturday through Saturday between 8a.m. and 4:30p.m. Please follow the directions below to access the portal: 1.Access the email account you provided upon registration to the hospital.2.Look for an invitation email from [facility].3.Open the email and access the invitation link: Accept Invitation to [facility]4.Fill in the required blanco to create your account. Sign into www.[facility] with your username and password that you created in the above steps to stay up to date. You can then view a summary of results, a summary of your visits, and the ability to download your summaries to your computer or send the information securely to a physician. Remember that your healthcare information is confidential, so carefully consider who you will allow to register on the [facility] Patient Portal for access to your information. You can also access the [facility] Patient Portal on the [employer] weston. Simply click on Health Records under Health Data and then click on the [employer] logo. HOW TO SAFELY DISPOSE OF PRESCRIPTION MEDICATIONS Please use one of the following methods to safely dispose of your unused medications. 1.Use a drug disposal kit: the drug disposal pouch allows you to safely discard your old and unused drugs. Ask your nurse to give you one when you are discharged.2.Visit a local take-back location: Many local pharmacies and police departments have programs that collect old and unwanted prescription drugs. Call your local pharmacy or go to http://bit.[employer]/7J6Mg6k to find one close to you.3.Make use of household items: Use cat litter or old coffee grounds to dispose medications if other options are not available. Mix your drugs with these household products, seal them in an airtight container and throw it into the garbage. Call [facility]: [phone] to be sure your drugs can be disposed of in this way. Some medicines may require a different approach.4.Never flush your medications down the toilet. IF YOU HAVE BEEN PRESCRIBED AN OPIOIDS FOR PAIN If you have been prescribed an opioid (such as hydrocodone, oxycodone or morphine), it is critical to understand the possible side effects and risks of opioid pain medications. Even when taken as directed, opioids can have several side effects including: Tolerance, meaning you might need to take more of a medication for the same pain relief. Nausea, vomiting and/or constipation. Sleepiness, dizziness, dry mouth, confusion, depression or itching. Physical dependence, meaning you have withdrawal symptoms when a medication is stopped ? this can develop within a few days. KNOW YOUR RESPONSIBILITIES It is important to know exactly how much and how often to take the opioid pain medications you are prescribed. Never take opioids in higher amounts or more often than prescribed. Do not combine opioids with alcohol or other drugs that cause drowsiness, such as benzodiazepines, also known as benzos, including diazepam and alprazolam, muscle relaxants or sleep aids. Never sell or share prescription opioids. This is illegal. Store opioids in a secure place and out of reach of others (including children, family, friends and visitors). The last page(s) of this document has been signed and retained as a CHART COPY Signatures Patient Education Materials Seizure, New Onset, Unknown Cause (Adult) Sinusitis (Antibiotic Treatment) Medication Leaflets My discharge plan and instructions have been reviewed and explained to me and IKARAN CHARLES J understand my current condition and have read and understand these discharge instructions. I have received a written copy of the plan/instructions. If I have questions, I am aware that I should contact my doctor. 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 Automated exposure control, iterative reconstruction, and/or weight based adjustment of the mA/kV was utilized to reduce the radiation dose to as low as reasonably achievable. COMPARISON: None. HISTORY: ORDERING SYSTEM PROVIDED HISTORY: Reason for Exam: seizures FINDINGS: Mucosal thickening is present within the maxillary sinuses and the bilateral ethmoid air cells. Minimal dependent fluid is present in the right compartment of the sphenoid sinus. There is a paucity of aerated left mastoid air cells, compatible with chronic/previous mastoiditis. No calvarial abnormality seen. The brain shows moderate atrophy with appropriate prominence of the CSF spaces. No hemorrhage or mass is visible. Sulci and xiong-white junctions are preserved. A 1 cm extra-axial lesion is evident at the superior and anterior falx eccentric toward the left with some calcification. 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 No significant adjacent mass effect is visible. No additional contributory finding. IMPRESSION: 1. Paranasal sinus disease. 2. No acute intracranial abnormality. 3. Atrophy. Interpreted by: Ashok Hernandez MD Preliminary Report By: Ashok Hernandez MD Electronically signed By Ashok Hernandez MD Dictated Date: 06/07/2024 2:17:40 PM Prelim Date: 06/07/2024 2:19:30 PM Sign Date: 06/07/2024 2:19:30 PM Ordering Provider: SAMIA MICHEL [facility]02-23-2025 Note* Exam Date Time Procedure Performing Provider Status 06/07/24 2:11 PM XR Chest 1 View ASHOK HERNANDEZ MD; Aut h (Verified) [id number] ORIGINAL EXAMINATION: ONE XRAY VIEW OF THE CHEST 06/07/2024 2:11 pm COMPARISON: July 28, 2023 HISTORY: ORDERING SYSTEM PROVIDED HISTORY: Reason for Exam: SOB/cough/fever FINDINGS: The heart is normal in size and there is no vascular congestion present. Areas of atelectasis are evident at the left lung base. No other infiltrate is visible. There may be trace left pleural fluid. Minor degenerative changes noted in the spine. IMPRESSION: Left basilar atelectasis. Interpreted by: Ashok Hernandez MD Preliminary Report By: Ashok Hernandez MD Electronically signed By Ashok Hernandez MD Dictated Date: 06/07/2024 2:16:01 PM Prelim Date: 06/07/2024 2:16:33 PM Sign Date: 06/07/2024 2:16:33 PM Ordering Provider: SAMIA MICHEL [facility]02-23-2025 Nurse Progress note Pt Guardian is Maggie Mckeon phone #[phone]. 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 Digitally Signed by Swapnil Saldivar RN on 06/07/2024 01:27 PM [facility]02-23-2025 Note* Exam Date Time Procedure Performing Provider Status 06/07/24 12:48 PM EKG [ED AOH] - CV MD MARILU, DASHA Claire MD; Auth (Verified) ECG Final Report Sinus rhythm Left axis deviation Abnormal T, consider ischemia, lateral leads Electronic Signature: MD MARILU, SAMIA YOON 06/07/2024 15:55:54 [facility]02-11-2025 Evaluation note* Diagnosis Onset Date Resolution Status Admit Date Cellulitis of right eyelid acute May 26, 2024 3:05pm Conjunctivitis, right eye acute May 26, 2024 3:05pm [facility] Work Phone: [phone]) 132-865001-12-2025 Note. MICRO - Microbiology PROCEDURE: Blood Culture (bacterial) [*1] SOURCE: Blood BODY SITE: COLLECTED DATE/TIME: 2024 18:44 EST RECEIVED DATE/TIME: 04/21/2024 14:11 EST START DATE/TIME: 04/21/2024 14:11 EST FREE TEXT SOURCE: FINAL REPORTS Final Report [] Verified Date/Time/Personnel: 04/26/2024 14:59 EST Blood Culture: No Growth at 5 days. PRELIMINARY REPORTS Preliminary Report [] Verified Date/Time/Personnel: 04/21/2024 14:59 EST Culture has been received in lab and is no growth to date. Routine cultures are held for 5 days. Performing Locations *1: This test was performed at: [address]01-12-2025 Note. MICRO - Microbiology PROCEDURE: Blood Culture (bacterial) [*1] SOURCE: Blood BODY SITE: COLLECTED DATE/TIME: 2024 18:44 EST RECEIVED DATE/TIME: 04/21/2024 14:11 EST START DATE/TIME: 04/21/2024 14:11 EST FREE TEXT SOURCE: FINAL REPORTS Final Report [] Verified Date/Time/Personnel: 04/26/2024 14:59 EST Blood Culture: No Growth at 5 days. PRELIMINARY REPORTS Preliminary Report [] Verified Date/Time/Personnel: 04/21/2024 14:59 EST Culture has been received in lab and is no growth to date. Routine cultures are held for 5 days. Performing Locations *1: This test was performed at: [address]01-06-2025 Emergency department Discharge summary Discharge Instructions Thank you for allowing [facility] to assist you with your healthcare needs. The following is importantdischarge information regarding your hospital visit. Diagnosis from Today's Visit Cellulitis What to Do Next Instructions from Your Care Team No qualifying data available. Post Acute Orders No qualifying data available. You Need to Schedule the Following Appointments Follow Up with Go to emergency room if symptoms worsen When:Within 2-4 days Follow Up with KIM HUTCHINSON When:Within 2-4 days Where:[address] [place] [address] [phone] Allergies Bactrim amoxicillin Medications Please ask your primary doctor or pharmacist before taking any other medication not listed, including over the counter drugs, herbal medications, vitamins and or supplements as they may interact withyour home medications. What How Much When Why Instructions Last Dose New bacitracin-polymyxin B ophthalmic (bacitracin-polymyxin B ophthalmic ointment) 0.25 Inch(es) Ophthalmic Four (4) times a day Duration: 5 Days Printed Prescription Unchanged apixaban (apixaban 5 mg oral tablet) 1 tab(s) by mouth Two (2) times a day Duration: 30 Days Unchanged busPIRone (busPIRone 10 mg oral tablet) 2 tab(s) by mouth Three (3) times a day Unchanged dexamethasone-tobramycin ophthalmic (Tobradex ophthalmic ointment) Unchanged DME (DME MISCellaneous) See instructions Glucometer, alcohol swabs, lancets. Unchanged DME (DME MISCellaneous) See instructions Type 2 diabetes mellitus 90 Glucometer strips. Unchanged DME (DME MISCellaneous) See instructions Check blood glucose level twice daily at 8AM and 8PM. Unchanged DME (DME MISCellaneous) See instructions Pen needles. Unchanged DME (DME MISCellaneous) See instructions alcohol swabs. Unchanged DME (DME MISCellaneous) See instructions Type 2 diabetes mellitus Lancets for glucose to be checked TID. Unchanged DME (DME MISCellaneous) See instructions Type 2 diabetes mellitus Pen needles-120. Unchanged DME (DME MISCellaneous) See instructions Type 2 diabetes mellitus GLucometer. Unchanged DME (DME MISCellaneous) See instructions Type 2 diabetes mellitus Glucometer-Check glucose TIDAC. Unchanged donepezil (Aricept 5 mg oral tablet) 1 tab(s) by mouth Daily at bedtime Unchanged escitalopram (escitalopram 20 mg oral tablet) 1 tab(s) by mouth Once a day Unchanged finasteride (finasteride 5 mg oral tablet) 1 tab(s) by mouth Once a day Unchanged gabapentin (gabapentin 100 mg oral capsule) 1 cap by mouth Two (2) times a day Unchanged insulin glargine (Basaglar 100 unit(s)/ mL 3 mL KwikPen) 8 unit(s) Subcutaneous Once a day (in the morning) Unchanged latanoprost-timolol ophthalmic (latanoprost-timolol 0.005%-0.5% ophthalmic solution) Unchanged loratadine (loratadine 10 mg oral capsule) 1 cap by mouth Once a day Unchanged metFORMIN (MetFORMIN (Eqv-Glucophage XR) 500 mg oral tablet, EXTENDED RELEASE) 1 tab(s) by mouth With supper Unchanged metoprolol (metoprolol succinate 25 mg oral TABLET extended release) 0.25 tab(s) by mouth Twice daily with meals Unchanged multivitamin (Multivitamin) 1 tab(s) by mouth Every day Unchanged nystatin topical (nystatin 100,000 units/ g topical cream) Unchanged oxybutynin (oxybutynin 10 mg/ 24 hr oral tablet, extended release) 1 tab(s) by mouth Once a day Please take this list to your next doctor s visit. Bring all medications you take, including over the counter medications, herbals and other supplements with you to your doctor s visit. Patients and families are reminded to discard old lists and to update any records with all medication providers or retail pharmacies. Education Materials Cellulitis Cellulitis is an infection of the deep layers of skin. A break in the skin, such as a cut or scratch, can let bacteria under the skin. If the bacteria get to deep layers of the skin, it can be serious. If not treated, cellulitis can get into the bloodstream and lymph nodes. The infection can then spread throughout the body. This causes serious illness. Cellulitis causes the affected skin to become red, swollen, warm, and sore. The reddened areas havea visible border. An open sore may leak fluid (pus). You may have a fever, chills, and pain. Cellulitis is treated with antibiotics taken for 7 to 10 days. An open sore may be cleaned and covered with cool wet gauze. Symptoms should get better 1 to 2 days after treatment is started. Make sure to take all the antibiotics for the full number of days until they are gone. Keep taking the medicine even if your symptoms go away. Home care Follow these tips: Limit the use of the part of your body with cellulitis. If the infection is on your leg, keep your leg raised while sitting. This will help to reduce swelling. Take all of the antibiotic medicine exactly as directed until it is gone. Do not miss any doses, especially during the first 7 days. Don t stop taking the medicine when your symptoms get better. Keep the affected area clean and dry. Wash your hands with soap and warm water before and after touching your skin. Anyone else who touches your skin should also wash his or her hands. Don't share towels. Follow-up care Follow up with your healthcare provider, or as advised. If your infection does not go away on the first antibiotic, your healthcare provider will prescribe a different one. When to seek medical advice Call your healthcare provider right away if any of these occur: Red areas that spread Swelling or pain that gets worse Fluid leaking from the skin (pus) Fever higher of 100.4 F (38.0 C) or higher after 2 days on antibiotics 2824-9881 [employer]. [address] [place] [address]. All rights reserved. This information is not intended as a substitute for professional medical care. Always follow yourhealthcare professional's instructions. Additional Information VACCINATE! IT SAVES LIVES! Members of the community who have not yet received the COVID-19 vaccine and would like to receive it can visit one of [facility] vaccine clinics. There are many vaccine clinic locations within the [facility]. For locations and available times, please visit www.gettheshot.coronavirus.[place].gov/. It is important to note that some COVID mobile vaccine clinics are held outdoors and may be canceled in rainy or stormy conditions. To learn more about pediatric vaccinations (ages 5-11), we invite you to visit the [facility] webpage. https://www.[facility].org/pages/7741-Vfnbs-Girvhezrmri-Fpmzhsczwh-Knpcn-Nqp stions.htmlTo learn more about the COVID-19 vaccine, we invite you to visit the CDC website for a list of frequently asked questions. https://www.cdc.gov/coronavirus/2019-ncov/vaccines/faq.html [facility] Patient Portal Access Instructions: Stay connected with your healthcare team and access your personal medical information anytime with the [facility] Patient Portal. If you would like a full copy of your medical records please contact the [facility] Medical Records Department Saturday through Saturday between 8a.m. and 4:30p.m. Please follow the directions below to access the portal: 1.Access the email account you provided upon registration to the [facility].2.Look for an invitation email from [facility].3.Open the email and access the invitation link: Accept Invitation to [facility]4.Fill in the required blanco to create your account. Sign into www.Health Integrated with your username and password that you created in the above steps to stay up to date. You can then view a summary of results, a summary of your visits, and the ability to download your summaries to your computer or send the information securely to a physician. Remember that your healthcare information is confidential, so carefully consider who you will allow to register on the [facility] Patient Portal for access to your information. You can also access the [facility] Patient Portal on the [employer]. Simply click on Health Records under [employer] and then click on the [employer] logo. HOW TO SAFELY DISPOSE OF PRESCRIPTION MEDICATIONS Please use one of the following methods to safely dispose of your unused medications. 1.Use a drug disposal kit: the drug disposal pouch allows you to safely discard your old and unuseddrugs. Ask your nurse to give you one when you are discharged.2.Visit a local take-back location: Many local pharmacies and police departments have programs that collect old and unwanted prescriptiondrugs. Call your local pharmacy or go to http://[employer]/8W4Yl4p to find one close to you.3.Make use of household items: Use cat litter or old coffee grounds to dispose medications if other options arenot available. Mix your drugs with these household products, seal them in an airtight container andthrow it into the garbage. Call [facility]: [phone] to be sure your drugs can be disposed of in this way. Some medicines may require a different approach.4.Never flush your medications down the toilet. IF YOU HAVE BEEN PRESCRIBED AN OPIOIDS FOR PAIN If you have been prescribed an opioid (such as hydrocodone, oxycodone or morphine), it is critical to understand the possible side effects and risks of opioid pain medications. Even when taken as directed, opioids can have several side effects including: Tolerance, meaning you might need to take more of a medication for the same pain relief. Nausea, vomiting and/or constipation. Sleepiness, dizziness, dry mouth, confusion, depression or itching. Physical dependence, meaning you have withdrawal symptoms when a medication is stopped ? this can develop within a few days. KNOW YOUR RESPONSIBILITIES It is important to know exactly how much and how often to take the opioid pain medications you are prescribed. Never take opioids in higher amounts or more often than prescribed. Do not combine opioids with alcohol or other drugs that cause drowsiness, such as benzodiazepines, also known as benzos,including diazepam and alprazolam, muscle relaxants or sleep aids. Never sell or share prescriptionopioids. This is illegal. Store opioids in a secure place and out of reach of others (including children, family, friends and visitors). The last page(s) of this document has been signed and retained as a CHART COPY Signatures Patient Education Materials Cellulitis Skin Infection Medication Leaflets My discharge plan and instructions have been reviewed and explained to me and I,RENNY RUSSO understand my current condition and have read and understand these discharge instructions. I have received a written copy of the plan/instructions. If I have questions, I am aware that I should contact my doctor. Patient/Chemist Organic Signature: Date/Time: Relationship to Patient: Witness Name/Signature: Date/Time: [facility]01-06-2025 Hospital Discharge instructions Patient Education 2024 18:09:03 Cellulitis Skin Infection Cellulitis Cellulitis is an infection of the deep layers of skin. A break in the skin, such as a cut or scratch, can let bacteria under the skin. If the bacteria get to deep layers of the skin, it can be serious. If not treated, cellulitis can get into the bloodstream and lymph nodes. The infection can then spread throughout the body. This causes serious illness. Cellulitis causes the affected skin to become red, swollen, warm, and sore. The reddened areas havea visible border. An open sore may leak fluid (pus). You may have a fever, chills, and pain. Cellulitis is treated with antibiotics taken for 7 to 10 days. An open sore may be cleaned and covered with cool wet gauze. Symptoms should get better 1 to 2 days after treatment is started. Make sure to take all the antibiotics for the full number of days until they are gone. Keep taking the medicine even if your symptoms go away. Home care Follow these tips: Limit the use of the part of your body with cellulitis. If the infection is on your leg, keep your leg raised while sitting. This will help to reduce swelling. Take all of the antibiotic medicine exactly as directed until it is gone. Do not miss any doses, especially during the first 7 days. Don t stop taking the medicine when your symptoms get better. Keep the affected area clean and dry. Wash your hands with soap and warm water before and after touching your skin. Anyone else who touches your skin should also wash his or her hands. Don't share towels. Follow-up care Follow up with your healthcare provider, or as advised. If your infection does not go away on the first antibiotic, your healthcare provider will prescribe a different one. When to seek medical advice Call your healthcare provider right away if any of these occur: Red areas that spread Swelling or pain that gets worse Fluid leaking from the skin (pus) Fever higher of 100.4 F (38.0 C) or higher after 2 days on antibiotics [id number] [employer]. [address] [place] [address]. All rights reserved. This information is not intended as a substitute for professional medical care. Always follow yourhealthcare professional's instructions. Follow Up Care 2024 17:26:27 With:Go to emergency room if symptoms worsen Address:Unknown When:2-4 days With:KIM HUTCHINSON Address: [address] [place] [phone] When:2-4 days [facility] 01-06-2025 Note* Exam Date Time Procedure Performing Provider Status 04/20/24 8:[address] Orbit Sella etc. w/ Contrast SOUTH DEGROOT MD; Auth (Verified) [id number] ORIGINAL EXAMINATION: CT OF THE ORBIT WITH CONTRAST 2024 TECHNIQUE: CT of the orbits was performed with the administration of intravenous contrast. Multiplanar reformatted images are provided for review. Automated exposure control, iterative reconstruction, and/or weight based adjustment of the mA/kV was utilized to reduce the radiation dose to as low as reasonably achievable. COMPARISON: None. HISTORY: ORDERING SYSTEM PROVIDED HISTORY: Reason for Exam: Erythema, skin, estimation around the eye getting worse. Rule out orbital/periorbital cellulitis FINDINGS: ORBITS: The left optic globe, extraocular musculature, optic nerve-sheath complex is grossly normal morphology. There is decreased volume of the left intraorbital fat with an os the most. The right optic globe and extraocular musculature are grossly normal in morphology. There is mild diffuse enlargement of the right optic nerve-sheath complex and increased perineural CSF. SOFT TISSUES: There is mild right periorbital and right male are cellulitis without abscess formation. There is mild right anterior orbital preseptal cellulitis. There is no postseptal cellulitis or intraorbital abscess. There is a right parotid ovoid enhancing nodule measuring 1 x 0.6 cm possibly intraparotid node although a parotid mass such as adenoma not excluded. Attention to this finding on follow-up studies would be useful. BRAIN: The visualized portion of the intracranial contents demonstrate no acute process. Partially empty sella is noted. SINUSES: There is moderate mucosal thickening of bilateral maxillary sinuses. There is marked mucosal thickening of the left frontal and left ethmoid sinuses and mild osseous wall thickening which may be compatible with chronic sinusitis. 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 BONES: No acute osseous abnormality is seen. There are prominent sutures at bilateral maxillary sinus lateral samuels. IMPRESSION: 1. Mild right periorbital and right anterior orbital preseptal cellulitis without abscess formation. 2. Mild diffuse enlargement of the right optic nerve-sheath complex and increased perineural CSF. Partially empty sella is noted. Findings may be suggestive of idiopathic intracranial hypertension in appropriate clinical setting. 3. Right parotid ovoid enhancing nodule measuring 1 x 0.6 cm possibly intraparotid node although a parotid mass such as adenoma not excluded. Attention to this finding on follow-up studies would be useful. 4. 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 5. Moderate mucosal thickening of bilateral maxillary sinuses. Marked mucosal thickening of the left frontal and left ethmoid sinuses and mild osseous wall thickening which may be compatible with chronic sinusitis. Interpreted by: [place] Preliminary Report By: [place] Electronically signed By [place] Dictated Date: 2024 8:17:39 PM Prelim Date: 2024 8:37:58 PM Sign Date: 2024 8:37:58 PM [facility] Discharge instructions Patient Education 04/06/2024 12:45:30 Cellulitis Skin Infection Cellulitis Cellulitis is an infection of the deep layers of skin. A break in the skin, such as a cut or scratch, can let bacteria under the skin. If the bacteria get to deep layers of the skin, it can be serious. If not treated, cellulitis can get into the bloodstream and lymph nodes. The infection can then spread throughout the body. This causes serious illness. Cellulitis causes the affected skin to become red, swollen, warm, and sore. The reddened areas havea visible border. An open sore may leak fluid (pus). You may have a fever, chills, and pain. Cellulitis is treated with antibiotics taken for 7 to 10 days. An open sore may be cleaned and covered with cool wet gauze. Symptoms should get better 1 to 2 days after treatment is started. Make sure to take all the antibiotics for the full number of days until they are gone. Keep taking the medicine even if your symptoms go away. Home care Follow these tips: Limit the use of the part of your body with cellulitis. If the infection is on your leg, keep your leg raised while sitting. This will help to reduce swelling. Take all of the antibiotic medicine exactly as directed until it is gone. Do not miss any doses, especially during the first 7 days. Don t stop taking the medicine when your symptoms get better. Keep the affected area clean and dry. Wash your hands with soap and warm water before and after touching your skin. Anyone else who touches your skin should also wash his or her hands. Don't share towels. Follow-up care Follow up with your healthcare provider, or as advised. If your infection does not go away on the first antibiotic, your healthcare provider will prescribe a different one. When to seek medical advice Call your healthcare provider right away if any of these occur: Red areas that spread Swelling or pain that gets worse Fluid leaking from the skin (pus) Fever higher of 100.4 F (38.0 C) or higher after 2 days on antibiotics [phone] [employer]. [address] [place] [address]. All rights reserved. This information is not intended as a substitute for professional medical care. Always follow yourhealthcare professional's instructions. Follow Up Care 04/06/2024 12:08:07 With:KIM HUTCHINSON Address: [address] [place] [address] [phone] When:2-4 days [facility] 12-23-2024 Note Discharge Instructions Thank you for allowing [facility] to assist you with your healthcare needs. The following is importantdischarge information regarding your hospital visit. Diagnosis from Today's Visit Cellulitis What to Do Next Instructions from Your Care Team Stop Bactrim and take doxycycline and Keflex as prescribed for 5 days. Please follow-up with your PCP. No qualifying data available. Post Acute Orders No qualifying data available. You Need to Schedule the Following Appointments Follow Up with KIM HUTCHINSON When:Within 2-4 days Where:[facility] [place] [phone] Allergies NKA Medications Please ask your primary doctor or pharmacist before taking any other medication not listed, including over the counter drugs, herbal medications, vitamins and or supplements as they may interact withyour home medications. What How Much When Why Instructions Last Dose New cephalexin (cephalexin 500 mg oral capsule) 1 cap by mouth Four (4) times a day Duration: 5 Days Printed Prescription New doxycycline (doxycycline hyclate 100 mg oral capsule) 1 cap by mouth Two (2) times a day Duration: 5 Days Printed Prescription Unchanged apixaban (apixaban 5 mg oral tablet) 1 tab(s) by mouth Two (2) times a day Duration: 30 Days Unchanged busPIRone (busPIRone 10 mg oral tablet) 2 tab(s) by mouth Three (3) times a day Unchanged dexamethasone-tobramycin ophthalmic (Tobradex ophthalmic ointment) Unchanged DME (DME MISCellaneous) See instructions Glucometer, alcohol swabs, lancets. Unchanged DME (DME MISCellaneous) See instructions Type 2 diabetes mellitus 90 Glucometer strips. Unchanged DME (DME MISCellaneous) See instructions Check blood glucose level twice daily at 8AM and 8PM. Unchanged DME (DME MISCellaneous) See instructions Pen needles. Unchanged DME (DME MISCellaneous) See instructions alcohol swabs. Unchanged DME (DME MISCellaneous) See instructions Type 2 diabetes mellitus Lancets for glucose to be checked TID. Unchanged DME (DME MISCellaneous) See instructions Type 2 diabetes mellitus Pen needles-120. Unchanged DME (DME MISCellaneous) See instructions Type 2 diabetes mellitus GLucometer. Unchanged DME (DME MISCellaneous) See instructions Type 2 diabetes mellitus Glucometer-Check glucose TIDAC. Unchanged donepezil (Aricept 5 mg oral tablet) 1 tab(s) by mouth Daily at bedtime Unchanged escitalopram (escitalopram 20 mg oral tablet) 1 tab(s) by mouth Once a day Unchanged finasteride (finasteride 5 mg oral tablet) 1 tab(s) by mouth Once a day Unchanged gabapentin (gabapentin 100 mg oral capsule) 1 cap by mouth Two (2) times a day Unchanged insulin glargine (Basaglar 100 unit(s)/ mL 3 mL KwikPen) 8 unit(s) Subcutaneous Once a day (in the morning) Unchanged latanoprost-timolol ophthalmic (latanoprost-timolol 0.005%-0.5% ophthalmic solution) Unchanged loratadine (loratadine 10 mg oral capsule) 1 cap by mouth Once a day Unchanged metFORMIN (MetFORMIN (Eqv-Glucophage XR) 500 mg oral tablet, EXTENDED RELEASE) 1 tab(s) by mouth With supper Unchanged metoprolol (metoprolol succinate 25 mg oral TABLET extended release) 0.25 tab(s) by mouth Twice daily with meals Unchanged multivitamin (Multivitamin) 1 tab(s) by mouth Every day Unchanged nystatin topical (nystatin 100,000 units/ g topical cream) Unchanged oxybutynin (oxybutynin 10 mg/ 24 hr oral tablet, extended release) 1 tab(s) by mouth Once a day Please take this list to your next doctor s visit. Bring all medications you take, including over the counter medications, herbals and other supplements with you to your doctor s visit. Patients and families are reminded to discard old lists and to update any records with all medication providers or retail pharmacies. Medication Leaflets doxycycline (oral/injection) (SIMRAN jose g garcia) Acticlate, Adoxa, Alodox, Avidoxy, Doryx, Doryx MPC, Lymepak, Mondoxyne NL, Monodox, Morgidox, Morgidox [id number], Morgidox [id number], O[place]bo, Oracea, Targadox What is the most important information I should know about doxycycline? You should not take this medicine if you are allergic to any tetracycline antibiotic. Children younger than 8 years old should use doxycycline only in cases of severe or life-threatening conditions. This medicine can cause permanent yellowing or graying of the teeth in children Using doxycycline during could harm the unborn baby or cause permanent tooth discoloration later in the baby's life. What is doxycycline? Doxycycline is a tetracycline antibiotic that Doxycycline is used to treat many different bacterial infections, such as acne, urinary tract infections, intestinal infections, eye infections, gonorrhea, chlamydia, periodontitis (gum disease), andothers. Doxycycline is also used to treat blemishes, bumps, and acne-like lesions caused by rosacea. Doxycycline will not treat facial redness caused by rosacea. Some forms of doxycycline are used to prevent malaria, to treat anthrax, or to treat infections caused by mites, ticks, or lice. Doxycycline may also be used for purposes not listed in this medication guide. What should I discuss with my healthcare provider before taking doxycycline? You should not take this medicine if you are allergic to doxycycline or other tetracycline antibiotics such as demeclocycline, minocycline, tetracycline, or tigecycline. Tell your doctor if you have ever had: liver disease; kidney disease; asthma or sulfite allergy; increased pressure inside your skull; or if you also take isotretinoin, seizure medicine, or a blood thinner such as warfarin (Coumadin). If you are using doxycycline to treat gonorrhea, your doctor may test you to make sure you do not also have syphilis, another sexually transmitted disease. Taking this medicine during may affect tooth and bone development in the unborn baby. Taking doxycycline during the last half of can cause permanent tooth discoloration later in the baby's life. Tell your doctor if you are or if you become . Doxycycline can make control pills less effective. Ask your doctor about using a non-hormonalbirth control (condom, diaphragm with spermicide) to prevent . Doxycycline can pass into breast milk and may affect bone and tooth development in a nursing . Do not breastfeed while you are taking doxycycline. Doxycycline can cause permanent yellowing or graying of the teeth in children younger than 8 years old. Children should use doxycycline only in cases of severe or life-threatening conditions such as anthrax or [place] spotted fever. The benefit of treating a serious condition may outweigh any risks to the child's tooth development. How should I take doxycycline? Follow all directions on your prescription label and read all medication guides or instruction sheets. Use the medicine exactly as directed. Take doxycycline with a full glass of water. Drink plenty of liquids while you are taking doxycycline. Read and carefully follow any Instructions for Use provided with your medicine. Ask your doctor or pharmacist if you do not understand these instructions. Most brands of doxycyline may be taken with food or milk if the medicine upsets your stomach. Different brands of doxycycline may have different instructions about taking them with or without food. Take Oracea on an empty stomach, at least 1 hour before or 2 hours after a meal. You may need to split a doxycycline tablet to get the correct dose. Follow your doctor's instructions. Swallow a delayed-release capsule or tablet whole. Do not crush, chew, break, or open it. Measure liquid medicine with the dosing syringe provided, or with a special dose-measuring spoon ormedicine cup. If you do not have a dose-measuring device, ask your pharmacist for one. If you take doxycycline to prevent malaria: Start taking the medicine 1 or 2 days before entering an area where malaria is common. Continue taking the medicine every day during your stay and for at least 4 weeks after you leave the area. Doxycycline is usually given by injection only if you are unable to take the medicine by mouth. A healthcare provider will give you this injection as an infusion into a vein. Use this medicine for the full prescribed length of time, even if your symptoms quickly improve. Skipping doses can increase your risk of infection that is resistant to medication. Doxycycline will not treat a viral infection such as the flu or a common cold. Store at room temperature away from moisture, heat, and light. Throw away any unused medicine after the expiration date on the label has passed. Using doxycycline can cause damage to your kidneys. What happens if I miss a dose? Take the medicine as soon as you can, but skip the missed dose if it is almost time for your next dose. Do not take two doses at one time. What happens if I overdose? Seek emergency medical attention or call the Poison Help line at . What should I avoid while taking doxycycline? Do not take iron supplements, multivitamins, calcium supplements, antacids, or laxatives within 2 hours before or after taking doxycycline. Avoid taking any other antibiotics with doxycycline unless your doctor has told you to. Doxycycline could make you sunburn more easily. Avoid sunlight or tanning beds. Wear protective clothing and use sunscreen (SPF 30 or higher) when you are outdoors. Antibiotic medicines can cause diarrhea, which may be a sign of a new infection. If you have diarrhea that is watery or bloody, call your doctor. Do not use anti-diarrhea medicine unless your doctor tells you to. What are the possible side effects of doxycycline? Get emergency medical help if you have signs of an allergic reaction (hives, difficult breathing, swelling in your face or throat) or a severe skin reaction (fever, sore throat, burning in your eyes,skin pain, red or purple skin rash that spreads and causes blistering and peeling). Seek medical treatment if you have a serious drug reaction that can affect many parts of your body.Symptoms may include: skin rash, fever, swollen glands, flu- like symptoms, muscle aches, severe weakness, unusual bruising, or yellowing of your skin or eyes. This reaction may occur several weeks after you began using doxycycline. Call your doctor at once if you have: severe stomach pain, diarrhea that is watery or bloody; throat irritation, trouble swallowing; chest pain, irregular heart rhythm, feeling short of breath; little or no urination; low white blood cell counts--fever, chills, swollen glands, body aches, weakness, pale skin, easy bruising or bleeding; increased pressure inside the skull--severe headaches, ringing in your ears, dizziness, nausea, vision problems, pain behind your eyes; or signs of liver or pancreas problems--loss of appetite, upper stomach pain (that may spread to your back), tiredness, nausea or vomiting, fast heart rate, dark urine, jaundice (yellowing of the skin or eyes). Common side effects may include: nausea, vomiting, upset stomach, loss of appetite; mild diarrhea; skin rash or itching; darkened skin color; or vaginal itching or discharge. This is not a complete list of side effects and others may occur. Call your doctor for medical advice about side effects. You may report side effects to FDA at 3-497-AAU-3235. What other drugs will affect doxycycline? Sometimes it is not safe to use certain medications at the same time. Some drugs can affect your blood levels of other drugs you take, which may increase side effects or make the medications less effective. Other drugs may affect doxycycline, including prescription and ylmd-qmo-dglhzel medicines, vitamins, and herbal products. Tell your doctor about all your current medicines and any medicine you start or stop using. Where can I get more information? Your pharmacist can provide more information about doxycycline. Remember, keep this and all other medicines out of the reach of children, never share your medicines with others, and use this medication only for the indication prescribed. Every effort has been made to ensure that the information provided by [employer]. [employer]') is accurate, up-to-date, and complete, but no guarantee is made to that effect. Drug information contained herein may be time sensitive. [employer] information has been compiled for use by healthcare practitioners and consumers in the [place] and therefore [employer] does not warrant that uses outside of the [place] are appropriate, unless specifically indicated otherwise. [employer] drug information does not endorse drugs, diagnose patients or recommend therapy. [employer] drug information isan informational resource designed to assist licensed healthcare practitioners in caring for their p atients and/or to serve consumers viewing this service as a supplement to, and not a substitute for, the expertise, skill, knowledge and judgment of healthcare practitioners. The absence of a warningfor a given drug or drug combination in no way should be construed to indicate that the drug or drug combination is safe, effective or appropriate for any given patient. [employer] does not assume any responsibility for any aspect of healthcare administered with the aid of information [employer] provides. The information contained herein is not intended to cover all possible uses, directions, precautions, warnings, drug interactions, allergic reactions, or adverse effects. If you have questions about the drugs you are taking, check with your doctor, nurse or pharmacist. Copyright [employer]. Version: .02. Revision Date: 04/01/2024. cephalexin (sef a DAREK in) What is the most important information I should know about cephalexin? You should not use this medicine if you are allergic to cephalexin or to similar antibiotics, such as Ceftin, Cefzil, Omnicef, and others. Tell your doctor if you are allergic to any drugs, especially penicillins or other antibiotics. What is cephalexin? Cephalexin is a cephalosporin (SEF a low spor in) antibiotic that is used to treat bacterial infections of the lungs, ear, skin, bones, bladder, and kidneys. Cephalexin is used to treat infections in adults and children who are at least 1 year old. Cephalexin may also be used for purposes not listed in this medication guide. What should I discuss with my healthcare provider before taking cephalexin? You should not use this medicine if you are allergic to cephalexin or any other cephalosporin antibiotic (cefdinir, cefadroxil, cefoxitin, cefprozil, ceftriaxone, cefuroxime, Omnicef, and others). Tell your doctor if you have ever had: an allergy to any drug (especially penicillin); liver or kidney disease; or intestinal problems, such as colitis. The liquid form of cephalexin may contain sugar. This may affect you if you have diabetes. Tell your doctor if you are or breast-feeding. How should I take cephalexin? Follow all directions on your prescription label and read all medication guides or instruction sheets. Use the medicine exactly as directed. Do not use cephalexin to treat any condition that has not been checked by your doctor. Measure liquid medicine carefully. Use the dosing syringe provided, or use a medicine dose-measuring device (not a kitchen spoon). Use this medicine for the full prescribed length of time, even if your symptoms quickly improve. Skipping doses can increase your risk of infection that is resistant to medication. Cephalexin will not treat a viral infection such as the flu or a common cold. Do not share cephalexin with another person, even if they have the same symptoms you have. This medicine can affect the results of certain medical tests. Tell any doctor who treats you that you are using cephalexin. Store the tablets and capsules at room temperature away from moisture, heat, and light. Store the liquid medicine in the refrigerator. Throw away any unused liquid after 14 days. What happens if I miss a dose? Take the medicine as soon as you can, but skip the missed dose if it is almost time for your next dose. Do not take two doses at one time. What happens if I overdose? Seek emergency medical attention or call the Poison Help line at . Overdose symptoms may include nausea, vomiting, stomach pain, diarrhea, and blood in your urine. What should I avoid while taking cephalexin? Antibiotic medicines can cause diarrhea, which may be a sign of a new infection. If you have diarrhea that is watery or bloody, call your doctor before using anti-diarrhea medicine. What are the possible side effects of cephalexin? Get emergency medical help if you have signs of an allergic reaction (hives, difficult breathing, swelling in your face or throat) or a severe skin reaction (fever, sore throat, burning eyes, skin pain, red or purple skin rash with blistering and peeling). Call your doctor at once if you have: severe stomach pain, diarrhea that is watery or bloody (even if it occurs months after your last dose); unusual tiredness, feeling light-headed or short of breath; easy bruising, unusual bleeding, purple or red spots under your skin; a seizure; pale skin, cold hands and feet; yellowed skin, dark colored urine; fever, weakness; or pain in your side or lower back, painful urination. Common side effects may include: diarrhea; nausea, vomiting; indigestion, stomach pain; or vaginal itching or discharge. This is not a complete list of side effects and others may occur. Call your doctor for medical advice about side effects. You may report side effects to FDA at 4-364-OMI-4986. What other drugs will affect cephalexin? Tell your doctor about all your other medicines, especially: metformin; or probenecid. This list is not complete. Other drugs may affect cephalexin, including prescription and uyqo-gmy-yzylrhx medicines, vitamins, and herbal products. Not all possible drug interactions are listed here. Where can I get more information? Your pharmacist can provide more information about cephalexin. Remember, keep this and all other medicines out of the reach of children, never share your medicines with others, and use this medication only for the indication prescribed. Every effort has been made to ensure that the information provided by [employer]. [employer]') is accurate, up-to-date, and complete, but no guarantee is made to that effect. Drug information contained herein may be time sensitive. [employer] information has been compiled for use by healthcare practitioners and consumers in the [place] and therefore [employer] does not warrant that uses outside of the [place] are appropriate, unless specifically indicated otherwise. [employer] drug information does not endorse drugs, diagnose patients or recommend therapy. [employer] drug information isan informational resource designed to assist licensed healthcare practitioners in caring for their p atients and/or to serve consumers viewing this service as a supplement to, and not a substitute for, the expertise, skill, knowledge and judgment of healthcare practitioners. The absence of a warningfor a given drug or drug combination in no way should be construed to indicate that the drug or drug combination is safe, effective or appropriate for any given patient. [employer] does not assume any responsibility for any aspect of healthcare administered with the aid of information [employer] provides. The information contained herein is not intended to cover all possible uses, directions, precautions, warnings, drug interactions, allergic reactions, or adverse effects. If you have questions about the drugs you are taking, check with your doctor, nurse or pharmacist. Copyright 5160-1794 [employer]. Version: .. Revision Date: 11/14/2022. [employer] Cellulitis Cellulitis is an infection of the deep layers of skin. A break in the skin, such as a cut or scratch, can let bacteria under the skin. If the bacteria get to deep layers of the skin, it can be serious. If not treated, cellulitis can get into the bloodstream and lymph nodes. The infection can then spread throughout the body. This causes serious illness. Cellulitis causes the affected skin to become red, swollen, warm, and sore. The reddened areas havea visible border. An open sore may leak fluid (pus). You may have a fever, chills, and pain. Cellulitis is treated with antibiotics taken for 7 to 10 days. An open sore may be cleaned and covered with cool wet gauze. Symptoms should get better 1 to 2 days after treatment is started. Make sure to take all the antibiotics for the full number of days until they are gone. Keep taking the medicine even if your symptoms go away. Home care Follow these tips: Limit the use of the part of your body with cellulitis. If the infection is on your leg, keep your leg raised while sitting. This will help to reduce swelling. Take all of the antibiotic medicine exactly as directed until it is gone. Do not miss any doses, especially during the first 7 days. Don t stop taking the medicine when your symptoms get better. Keep the affected area clean and dry. Wash your hands with soap and warm water before and after touching your skin. Anyone else who touches your skin should also wash his or her hands. Don't share towels. Follow-up care Follow up with your healthcare provider, or as advised. If your infection does not go away on the first antibiotic, your healthcare provider will prescribe a different one. When to seek medical advice Call your healthcare provider right away if any of these occur: Red areas that spread Swelling or pain that gets worse Fluid leaking from the skin (pus) Fever higher of 100.4 F (38.0 C) or higher after 2 days on antibiotics 8241-4827 [employer]. [address] [place] [address]. All rights reserved. This information is not intended as a substitute for professional medical care. Always follow yourhealthcare professional's instructions. Additional Information VACCINATE! IT SAVES LIVES! Members of the community who have not yet received the COVID-19 vaccine and would like to receive it can visit one of [facility] vaccine clinics. There are many vaccine clinic locations within the [facility]. For locations and available times, please visit [email or web address]/. It is important to note that some COVID mobile vaccine clinics are held outdoors and may be canceled in rainy or stormy conditions. To learn more about pediatric vaccinations (ages 5-11), we invite you to visit the [facility] webpage. [email or web address] learn more about the COVID-19 vaccine, we invite you to visit the CDC website for a list of frequently asked questions. https://www.cdc.gov/coronavirus/2019-ncov/vaccines/faq.html [facility] Patient Portal Access Instructions: Stay connected with your healthcare team and access your personal medical information anytime with the [facility] Patient Portal. If you would like a full copy of your medical records please contact the [facility] Medical Records Department Saturday through Saturday between 8a.m. and 4:30p.m. Please follow the directions below to access the portal: 1.Access the email account you provided upon registration to the [facility].2.Look for an invitation email from [facility].3.Open the email and access the invitation link: Accept Invitation to [facility].Fill in the required blanco to create your account. Sign into www.[facility] with your username and password that you created in the above steps to stay up to date. You can then view a summary of results, a summary of your visits, and the ability to download your summaries to your computer or send the information securely to a physician. Remember that your healthcare information is confidential, so carefully consider who you will allow to register on the [facility] Patient Portal for access to your information. You can also access the [facility] Patient Portal on the [employer] weston. Simply click on Health Records under [employer] and then click on the [employer] logo. HOW TO SAFELY DISPOSE OF PRESCRIPTION MEDICATIONS Please use one of the following methods to safely dispose of your unused medications. 1.Use a drug disposal kit: the drug disposal pouch allows you to safely discard your old and unuseddrugs. Ask your nurse to give you one when you are discharged.2.Visit a local take-back location: Many local pharmacies and police departments have programs that collect old and unwanted prescriptiondrugs. Call your local pharmacy or go to http://bit.[employer]/4B6At6d to find one close to you.3.Make use of household items: Use cat litter or old coffee grounds to dispose medications if other options arenot available. Mix your drugs with these household products, seal them in an airtight container andthrow it into the garbage. [facility]: [phone] to be sure your drugs can be disposed of in this way. Some medicines may require a different approach.4.Never flush your medications down the toilet. IF YOU HAVE BEEN PRESCRIBED AN OPIOIDS FOR PAIN If you have been prescribed an opioid (such as hydrocodone, oxycodone or morphine), it is critical to understand the possible side effects and risks of opioid pain medications. Even when taken as directed, opioids can have several side effects including: Tolerance, meaning you might need to take more of a medication for the same pain relief. Nausea, vomiting and/or constipation. Sleepiness, dizziness, dry mouth, confusion, depression or itching. Physical dependence, meaning you have withdrawal symptoms when a medication is stopped ? this can develop within a few days. KNOW YOUR RESPONSIBILITIES It is important to know exactly how much and how often to take the opioid pain medications you are prescribed. Never take opioids in higher amounts or more often than prescribed. Do not combine opioids with alcohol or other drugs that cause drowsiness, such as benzodiazepines, also known as benzos,including diazepam and alprazolam, muscle relaxants or sleep aids. Never sell or share prescriptionopioids. This is illegal. Store opioids in a secure place and out of reach of others (including children, family, friends and visitors). The last page(s) of this document has been signed and retained as a CHART COPY Signatures Patient Education Materials Cellulitis Skin Infection Medication Leaflets doxycycline (oral/injection), cephalexin My discharge plan and instructions have been reviewed and explained to me and IKARAN CHARLES J understand my current condition and have read and understand these discharge instructions. I have received a written copy of the plan/instructions. If I have questions, I am aware that I should contact my doctor. 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 Service: ? Author Type: Nurse Practitioner Type: Progress Notes Filed: 02/06/2024 12:10 Note Text: Subjective HPI HPI Renny Russo is a 73 year old male who presents today for CC of right eye redness/drainage. This started few days ago. Has tried nothing for relief. Symptoms are worsened by nothing. Risk factors staff reports patient constantly touching eyes. Patient poor historian, info comes from caregiver. .Patient presents with: Eye Problem: JENNA eye redness PAST MEDICAL HISTORY Diagnosis Date Acute gastritis without mention of hemorrhage Cataracts, bilateral Depression Diarrhea Duodenitis without mention of hemorrhage Generalized anxiety disorder Unspecified intellectual disabilities PAST SURGICAL HISTORY Procedure Laterality Date COLONOSCOPY FLX DX W/COLLJ SPEC WHEN PFRMD 12/04/2007 normal EGD TRANSORAL BIOPSY SINGLE/MULTIPLE 12/04/2007 moderate gastritis ALLERGIES Patient has no known allergies. MEDICATIONS ELIQUIS 5 mg tab(s) Take 1 tablet by mouth two times a day. DEXCOM G7 SENSOR luis angel USE DAILY, CHANGE SENSOR EVERY 10 DAYS TRUE METRIX GLUCOSE TEST STRIP test strip 1 Strip four times daily. finasteride (PROSCAR) 5 mg tablet Take 5 mg by mouth once daily. BASAGLAR KWIKPEN U-100 INSULIN 100 unit/mL (3 mL) Inject 8 Units subcutaneously every morning. metFORMIN ER (GLUCOPHAGE XR) 500 mg 24 hr tablet Take 500 mg by mouth daily with breakfast. ONE DAILY FOR MEN 0.4-600 mg-mcg tab Take 1 tablet by mouth once daily. nystatin (MYCOSTATIN) cream Apply to affected area as needed (Apply to perineum AND scrotum twice daily.). BD GARRETT 2ND GEN PEN NEEDLE 32 gauge x tamsulosin (FLOMAX) 0.4 mg Take 0.4 mg by mouth once daily. donepezil (ARICEPT) 5 mg tablet Take 5 mg by mouth daily at bedtime. oxybutynin ER (DITROPAN XL) 10 mg 24 hr tablet Take 10 mg by mouth once daily. busPIRone (BUSPAR) 10 mg tablet Take 2 tablets by mouth three times a day. escitalopram oxalate (LEXAPRO) 20 mg tablet Take 20 mg by mouth once daily. gabapentin (NEURONTIN) 100 mg capsule Take 100 mg by mouth twice daily. LORATADINE 10 MG TAB Take one(1) tablet daily for allergy symptoms including sneezing, itchy, watery eyes, and congestion trimethoprim-polymyxin (POLYTRIM) 10,000 unit- 1 mg/mL ophthalmic solution Use 1 Drop in the right eye four times daily for 7 days. insulin aspart U-100 (NOVOLOG FLEXPEN U-100 INSULIN) 100 unit/mL (3 mL) Inject 4 Units subcutaneously three times a day before meals. (Patient not taking: Reported on 02/06/2024) oxybutynin ER (DITROPAN XL) 10 mg 24 hr tablet Take 10 mg by mouth once daily. (Patient not taking: Reported on 02/06/2024) zinc oxide (DESITIN DAILY DEFENSE TOPICAL) Apply to affected area. (Patient not taking: Reported on 02/06/2024) timolol/dorzolamide/latanop/PF (CAQHENO-MZMLUSWMLZ-FYZOQLH,PF,) 0.5-2-0.005 % drop Use in eyes. (Patient not taking: Reported on 02/06/2024) QUEtiapine (SEROQUEL) 25 mg tablet Take 1 tablet by mouth twice daily. (Patient not taking: Reported on 02/06/2024) ketoconazole 2 % cream Apply 1 application to affected area twice daily. (Patient not taking: Reported on 02/06/2024) No family history on file. Social History Tobacco Use Smoking status: Every Day Current packs/day: 0.50 Average packs/day: 0.5 packs/day for 20.0 years (10.0 ttl pk-yrs) Types: Cigarettes Smokeless tobacco: Never Tobacco comments: maybe longer smoke hx difficult to asses Vaping Use Vaping status: Never Used Substance Use Topics Alcohol use: No Drug use: No Review of Systems Constitutional: Negative for chills and fever. HENT: Negative for ear discharge, ear pain and sore throat. Eyes: Positive for discharge and redness. Negative for blurred vision, double vision, photophobia and pain. Neurological: Negative for headaches. Objective Physical Exam Constitutional: General: He is not in acute distress. Appearance: He is not toxic-appearing. HENT: Right Ear: Hearing, tympanic membrane and external ear normal. Left Ear: Hearing, tympanic membrane, ear canal and external ear normal. Nose: No mucosal edema. Mouth/Throat: Pharynx: Uvula midline. Eyes: General: Right eye: Discharge present. Left eye: No discharge. Conjunctiva/sclera: Right eye: Right conjunctiva is injected. Left eye: Left conjunctiva is injected. Lymphadenopathy: Cervical: Right cervical: No superficial cervical adenopathy. Left cervical: No superficial cervical adenopathy. Comments: No cervical lymphadenopathy bilaterally Neurological: Mental Status: He is oriented to person, place, and time. ASSESSMENT/PLAN: 1. Acute conjunctivitis of right eye, unspecified acute conjunctivitis type - ICD9: 372.00, ICD10: H10.31 Bacterial - see medication orders - course and contagiousness issues discussed, including hand washing. - Instructed to call if high fever, (more content not included)...[facility]10-24-2024 History of Present illness Narrative* Jumana Soliz APRN.[employer] - 02/06/2024 12:09 PM EDT Subjective HPI HPI Renny Russo is a 73 year old male who presents today for CC of right eye redness/drainage. This started few days ago. Has tried nothing for relief. Symptoms are worsened by nothing. Riskfactors staff reports patient constantly touching eyes. Patient poor historian, info comes from caregiver. .Patient presents with: Eye Problem: JENNA eye redness PAST MEDICAL HISTORY Diagnosis Date Acute gastritis without mention of hemorrhage Cataracts, bilateral Depression Diarrhea Duodenitis without mention of hemorrhage Generalized anxiety disorder Unspecified intellectual disabilities PAST SURGICAL HISTORY Procedure Laterality Date COLONOSCOPY FLX DX W/COLLJ SPEC WHEN PFRMD 12/04/2007 normal EGD TRANSORAL BIOPSY SINGLE/MULTIPLE 12/04/2007 moderate gastritis ALLERGIES Patient has no known allergies. MEDICATIONS ELIQUIS 5 mg tab(s) Take 1 tablet by mouth two times a day. DEXCOM G7 SENSOR luis angel USE DAILY, CHANGE SENSOR EVERY 10 DAYS TRUE METRIX GLUCOSE TEST STRIP test strip 1 Strip four times daily. finasteride (PROSCAR) 5 mg tablet Take 5 mg by mouth once daily. BASAGLAR KWIKPEN U-100 INSULIN 100 unit/mL (3 mL) Inject 8 Units subcutaneously every morning. metFORMIN ER (GLUCOPHAGE XR) 500 mg 24 hr tablet Take 500 mg by mouth daily with breakfast. ONE DAILY FOR MEN 0.4-600 mg-mcg tab Take 1 tablet by mouth once daily. nystatin (MYCOSTATIN) cream Apply to affected area as needed (Apply to perineum & scrotum twicedaily.). BD GARRETT 2ND GEN PEN NEEDLE 32 gauge x tamsulosin (FLOMAX) 0.4 mg Take 0.4 mg by mouth once daily. donepezil (ARICEPT) 5 mg tablet Take 5 mg by mouth daily at bedtime. oxybutynin ER (DITROPAN XL) 10 mg 24 hr tablet Take 10 mg by mouth once daily. busPIRone (BUSPAR) 10 mg tablet Take 2 tablets by mouth three times a day. escitalopram oxalate (LEXAPRO) 20 mg tablet Take 20 mg by mouth once daily. gabapentin (NEURONTIN) 100 mg capsule Take 100 mg by mouth twice daily. LORATADINE 10 MG TAB Take one(1) tablet daily for allergy symptoms including sneezing, itchy, watery eyes, and congestion trimethoprim-polymyxin (POLYTRIM) 10,000 unit- 1 mg/mL ophthalmic solution Use 1 Drop in the right eye four times daily for 7 days. insulin aspart U-100 (NOVOLOG FLEXPEN U-100 INSULIN) 100 unit/mL (3 mL) Inject 4 Units subcutaneously three times a day before meals. (Patient not taking: Reported on 02/06/2024) oxybutynin ER (DITROPAN XL) 10 mg 24 hr tablet Take 10 mg by mouth once daily. (Patient not taking:Reported on 02/06/2024) zinc oxide (DESITIN DAILY DEFENSE TOPICAL) Apply to affected area. (Patient not taking: Reported on02/06/2024) timolol/dorzolamide/latanop/PF (NDRZADP-LSNNTXBEVU-FSBIOYU,PF,) 0.5-2-0.005 % drop Use in eyes. (Patient not taking: Reported on 02/06/2024) QUEtiapine (SEROQUEL) 25 mg tablet Take 1 tablet by mouth twice daily. (Patient not taking: Reported on 02/06/2024) ketoconazole 2 % cream Apply 1 application to affected area twice daily. (Patient not taking: Reported on 02/06/2024) No family history on file. Social History Tobacco Use Smoking status: Every Day Current packs/day: 0.50 Average packs/day: 0.5 packs/day for 20.0 years (10.0 ttl pk-yrs) Types: Cigarettes Smokeless tobacco: Never Tobacco comments: maybe longer smoke hx difficult to asses Vaping Use Vaping status: Never Used Substance Use Topics Alcohol use: No Drug use: No Review of Systems Constitutional: Negative for chills and fever. HENT: Negative for ear discharge, ear pain and sore throat. Eyes: Positive for discharge and redness. Negative for blurred vision, double vision, photophobia and pain. Neurological: Negative for headaches. Objective Physical Exam Constitutional: General: He is not in acute distress. Appearance: He is not toxic-appearing. HENT: Right Ear: Hearing, tympanic membrane and external ear normal. Left Ear: Hearing, tympanic membrane, ear canal and external ear normal. Nose: No mucosal edema. Mouth/Throat: Pharynx: Uvula midline. Eyes: General: Right eye: Discharge present. Left eye: No discharge. Conjunctiva/sclera: Right eye: Right conjunctiva is injected. Left eye: Left conjunctiva is injected. Lymphadenopathy: Cervical: Right cervical: No superficial cervical adenopathy. Left cervical: No superficial cervical adenopathy. Comments: No cervical lymphadenopathy bilaterally Neurological: Mental Status: He is oriented to person, place, and time. ASSESSMENT/PLAN: 1. Acute conjunctivitis of right eye, unspecified acute conjunctivitis type - ICD9: 372.00, ICD10: H10.31 Bacterial - see medication orders - course and contagiousness issues discussed, including hand washing. - Instructed to call if high fever, development of periorbital redness or swelling, eye pain, visual changes, concerns or if symptoms persist. - POLYMYXIN B SULFATE 10,000 UNIT-TRIMETHOPRIM 1 MG/ML EYE DROPS Jumana Soliz APRN.[facility]* Patient Instructions* Jumana Soliz APRN.CNP - 02/06/2024 11:35 AM EDT CONJUNCTIVITIS GENERAL INFORMATION: Conjunctivitis is also known as pink eye. It is an irritation of the underside of the eyelid and the white part of the eye. Conjunctivitis can be caused by infection, chemical irritation, or allergy.If infectious, it is very contagious. INSTRUCTIONS: The doctor has prescribed antibiotic drops or ointment. Use them as prescribed. Do not touch the dropper to the eye. Throw out the medication after completing treatment. If the doctor only prescribedthe medication to be placed in one eye, and the other eye starts to bother you with the same symptoms, you may treat it in the same fashion. To ease discomfort, apply a warm or cool clean washcloth to your eye several times a day for 10 to 20 minutes. Gently wipe away discharge from the eyes with tissues. Wash your hands often with soap and use paper towels to dry them. Do not share towels, washcloths, or pillows. This could spread infection. Do not use eye make-up until the infection has resolved. Keep contact lenses out of eyes until the irritation is gone. Discard any eye make-up which you may have contaminated before the infection wasdiagnosed, and any eye make-up older than one year. Children should not return to school or daycare until the eye is no longer pink. Do not drive or operate machinery if your vision is blurred. Wear sunglasses if your eyes are sensitive to the light. CONTACT YOUR DOCTOR IF YOU OR YOUR CHILD NOTICE: *The eye is still pink 3 days after starting treatment with medicine. *Pain in the eye increases. *The redness is spreading. *Vision becomes blurred. *You have a temperature over 100.5 F (38 C). [facility] Hospital Discharge instructions Patient Education 09/24/2023 11:34:27 Fungal Skin Infection (Tinea) Fungal Skin Infection (Tinea) A fungal infection occurs when too much fungus grows on or in the body. Fungus normally lives on the skin in small amounts and does not cause harm. But when too much grows on the skin, it causes an infection. This is also known as tinea. Fungal skin infections are common and not usually serious. The infection often starts as a small red area the size of a pea. The skin may turn dry and flaky. The area may itch. As the fungus grows, it spreads out in a red suquamish. Because of how it looks, fungal skin infection is often called ringworm, but it is not caused by a worm. Fungal skin infections can occur on many parts of the body. They can grow on the head, chest, arms, or legs. They can occuron the buttocks. On the feet, fungal infection is known as athlete s foot. It causes itchy, sometimes painful sores between the toes and the bottom or sides of the feet. In the groin, the rash is called jock itch. People with weak immune systems can get a fungal infection more easily. This includes people with diabetes or HIV, or who are being treated for cancer. In these cases, the fungal infection can spreadand cause severe illness. Fungal infections are also more common in people who are overweight. In most cases, treatment is done with antifungal cream or ointment. If the infection is on your scalp, you may take oral medicine. In some cases, a tiny piece of the skin (biopsy) may be taken. This is so it can be tested in a lab. Common fungal infections are treated with creams on the skin or oral medicine. Home care Follow all instructions when using antifungal cream or ointment on your skin. Your healthcare provider may advise using cornstarch powder to keep your skin dry or petroleum jelly to provide a barrier. General care: If you were prescribed an oral medicine, read the patient information. Talk with your healthcare provider about the risks and side effects. Let your skin dry completely after bathing. Carefully dry your feet and between your toes. Dress in loose cotton clothing. Don t scratch the affected area. This can delay healing and may spread the infection. It can also cause a bacterial infection. Keep your skin clean, but don t wash the skin too much. This can irritate your skin. Keep in mind that it may take a week before the fungus starts to go away. It can take 2 to 4 weeks to fully clear. To prevent it from coming back, use the medicine until the rash is all gone. Follow-up care Follow up with your healthcare provider if the rash does not get better after 10 days of treatment.Also follow up if the rash spreads to other parts of your body. When to seek medical advice Call your healthcare provider right away if any of these occur: Fever of 100.4 F (38 C) or higher Redness or swelling that gets worse Pain that gets worse Foul-smelling fluid leaking from the skin [employer]. [address] [place] [address]. All rights reserved. This information is not intended as a substitute for professional medical care. Always follow yourhealthcare professional's instructions. 09/24/2023 11:34:05 Otitis Media, Antibiotic Treatment (Adult) Middle Ear Infection (Adult) You have an infection of the middle ear, the space behind the eardrum. This is also called acute otitis media (AOM). Sometimes it is caused by the common cold. This is because congestion can block the internal passage (eustachian tube) that drains fluid from the middle ear. When the middle ear fills with fluid, bacteria can grow there and cause an infection. Oral antibiotics are used to treat this illness, not ear drops. Symptoms usually start to improve within 1 to 2 days of treatment. Home care The following are general care guidelines: Finish all of the antibiotic medicine given, even though you may feel better after the first few days. You may use skyg-cpa-syawjob medicine, such as acetaminophen or ibuprofen, to control pain and fever, unless something else was prescribed. If you have chronic liver or kidney disease or have ever had a stomach ulcer or gastrointestinal bleeding, talk with your healthcare provider before using these medicines. Do not give aspirin to anyone under 18 years of age who has a fever. It may cause severe illness or . Follow-up care Follow up with your healthcare provider, or as advised, in 2 weeks if all symptoms have not gotten better, or if hearing doesn't go back to normal within 1 month. When to seek medical advice Call your healthcare provider right away if any of these occur: Ear pain gets worse or does not improve after 3 days of treatment Unusual drowsiness or confusion Neck pain, stiff neck, or headache Fluid or blood draining from the ear canal Fever of 100.4 F (38 C) or as advised Seizure [id number] [employer]. [address] [place] [address]. All rights reserved. This information is not intended as a substitute for professional medical care. Always follow yourhealthcare professional's instructions. Follow Up Care 09/24/2023 11:21:09 With:KIM HUTCHINSON Address: [address] [place] [id number] [phone] When:2-4 days [facility] 06-11-2024 Emergency department Discharge summary Discharge Instructions Thank you for allowing [facility] to assist you with your healthcare needs. The following is importantdischarge information regarding your hospital visit. What to Do Next Instructions from Your Care Team No qualifying data available. Post Acute Orders No qualifying data available. You Need to Schedule the Following Appointments Follow Up with KIM HUTCHINSON When:Within 2-4 days Where:[place] [id number] [phone] Allergies NKA Medications Please ask your primary doctor or pharmacist before taking any other medication not listed, including over the counter drugs, herbal medications, vitamins and or supplements as they may interact withyour home medications. What How Much When Why Instructions Last Dose New amoxicillin (amoxicillin 500 mg oral capsule) 1 cap by mouth Three (3) times a day Duration: 10 Days Printed Prescription New nystatin topical (nystatin 100,000 units/ g topical cream) 1 application Topical Two (2) times a day Printed Prescription Unchanged apixaban (apixaban 5 mg oral tablet) 1 tab(s) by mouth Two (2) times a day Duration: 30 Days Unchanged busPIRone (busPIRone 10 mg oral tablet) 2 tab(s) by mouth Three (3) times a day Unchanged DME (DME MISCellaneous) See instructions Glucometer, alcohol swabs, lancets. Unchanged DME (DME MISCellaneous) See instructions Type 2 diabetes mellitus 90 Glucometer strips. Unchanged DME (DME MISCellaneous) See instructions Pen needles. Unchanged DME (DME MISCellaneous) See instructions alcohol swabs. Unchanged DME (DME MISCellaneous) See instructions Type 2 diabetes mellitus Lancets for glucose to be checked TID. Unchanged DME (DME MISCellaneous) See instructions Type 2 diabetes mellitus Pen needles-120. Unchanged DME (DME MISCellaneous) See instructions Type 2 diabetes mellitus GLucometer. Unchanged DME (DME MISCellaneous) See instructions Type 2 diabetes mellitus Glucometer-Check glucose TIDAC. Unchanged donepezil (Aricept 5 mg oral tablet) 1 tab(s) by mouth Daily at bedtime Unchanged escitalopram (escitalopram 20 mg oral tablet) 1 tab(s) by mouth Once a day Unchanged finasteride (finasteride 5 mg oral tablet) 1 tab(s) by mouth Once a day Unchanged gabapentin (gabapentin 100 mg oral capsule) 1 cap by mouth Two (2) times a day Unchanged insulin aspart (Novolog) (NovoLOG FlexPen 100 units/ mL injectable solution) 5 unit(s) Subcutaneous Three (3) times a day before meals Type 2 diabetes mellitus Duration: 30 Days Unchanged insulin glargine (Lantus Solostar Pen 100 units/ mL 3 mL Pen) 20 unit(s) Subcutaneous Daily at bedtime Type 2 diabetes mellitus Unchanged insulin glargine (Lantus Solostar Pen 100 units/ mL 3 mL Pen) 20 unit(s) Subcutaneous Two (2) times a day Type 2 diabetes mellitus Duration: 30 Days Unchanged latanoprost-timolol ophthalmic (latanoprost-timolol 0.005%-0.5% ophthalmic solution) Unchanged loratadine (loratadine 10 mg oral capsule) 1 cap by mouth Once a day Unchanged metFORMIN (MetFORMIN (Eqv-Glucophage XR) 500 mg oral tablet, EXTENDED RELEASE) 1 tab(s) by mouth With supper Unchanged metoprolol (metoprolol succinate 25 mg oral TABLET extended release) 0.25 tab(s) by mouth Twice daily with meals Unchanged multivitamin (Multivitamin) 1 tab(s) by mouth Every day Unchanged tamsulosin (tamsulosin 0.4 mg oral capsule) 1 cap by mouth Daily at bedtime Please take this list to your next doctor s visit. Bring all medications you take, including over the counter medications, herbals and other supplements with you to your doctor s visit. Patients and families are reminded to discard old lists and to update any records with all medication providers or retail pharmacies. Education Materials Fungal Skin Infection (Tinea) A fungal infection occurs when too much fungus grows on or in the body. Fungus normally lives on the skin in small amounts and does not cause harm. But when too much grows on the skin, it causes an infection. This is also known as tinea. Fungal skin infections are common and not usually serious. The infection often starts as a small red area the size of a pea. The skin may turn dry and flaky. The area may itch. As the fungus grows, it spreads out in a red suquamish. Because of how it looks, fungal skin infection is often called ringworm, but it is not caused by a worm. Fungal skin infections can occur on many parts of the body. They can grow on the head, chest, arms, or legs. They can occuron the buttocks. On the feet, fungal infection is known as athlete s foot. It causes itchy, sometimes painful sores between the toes and the bottom or sides of the feet. In the groin, the rash is called jock itch. People with weak immune systems can get a fungal infection more easily. This includes people with diabetes or HIV, or who are being treated for cancer. In these cases, the fungal infection can spreadand cause severe illness. Fungal infections are also more common in people who are overweight. In most cases, treatment is done with antifungal cream or ointment. If the infection is on your scalp, you may take oral medicine. In some cases, a tiny piece of the skin (biopsy) may be taken. This is so it can be tested in a lab. Common fungal infections are treated with creams on the skin or oral medicine. Home care Follow all instructions when using antifungal cream or ointment on your skin. Your healthcare provider may advise using cornstarch powder to keep your skin dry or petroleum jelly to provide a barrier. General care: If you were prescribed an oral medicine, read the patient information. Talk with your healthcare provider about the risks and side effects. Let your skin dry completely after bathing. Carefully dry your feet and between your toes. Dress in loose cotton clothing. Don t scratch the affected area. This can delay healing and may spread the infection. It can also cause a bacterial infection. Keep your skin clean, but don t wash the skin too much. This can irritate your skin. Keep in mind that it may take a week before the fungus starts to go away. It can take 2 to 4 weeks to fully clear. To prevent it from coming back, use the medicine until the rash is all gone. Follow-up care Follow up with your healthcare provider if the rash does not get better after 10 days of treatment.Also follow up if the rash spreads to other parts of your body. When to seek medical advice Call your healthcare provider right away if any of these occur: Fever of 100.4 F (38 C) or higher Redness or swelling that gets worse Pain that gets worse Foul-smelling fluid leaking from the skin [employer]. [address] [place] [address]. All rights reserved. This information is not intended as a substitute for professional medical care. Always follow yourhealthcare professional's instructions. Middle Ear Infection (Adult) You have an infection of the middle ear, the space behind the eardrum. This is also called acute otitis media (AOM). Sometimes it is caused by the common cold. This is because congestion can block the internal passage (eustachian tube) that drains fluid from the middle ear. When the middle ear fills with fluid, bacteria can grow there and cause an infection. Oral antibiotics are used to treat this illness, not ear drops. Symptoms usually start to improve within 1 to 2 days of treatment. Home care The following are general care guidelines: Finish all of the antibiotic medicine given, even though you may feel better after the first few days. You may use mxgh-ycl-hctteed medicine, such as acetaminophen or ibuprofen, to control pain and fever, unless something else was prescribed. If you have chronic liver or kidney disease or have ever had a stomach ulcer or gastrointestinal bleeding, talk with your healthcare provider before using these medicines. Do not give aspirin to anyone under 18 years of age who has a fever. It may cause severe illness or . Follow-up care Follow up with your healthcare provider, or as advised, in 2 weeks if all symptoms have not gotten better, or if hearing doesn't go back to normal within 1 month. When to seek medical advice Call your healthcare provider right away if any of these occur: Ear pain gets worse or does not improve after 3 days of treatment Unusual drowsiness or confusion Neck pain, stiff neck, or headache Fluid or blood draining from the ear canal Fever of 100.4 F (38 C) or as advised Seizure [id number] [employer]. [address] [place] [address]. All rights reserved. This information is not intended as a substitute for professional medical care. Always follow yourhealthcare professional's instructions. Additional Information VACCINATE! IT SAVES LIVES! Members of the community who have not yet received the COVID-19 vaccine and would like to receive it can visit one of [facility] vaccine clinics. There are many vaccine clinic locations within the State. For locations and available times, please visit www.gettheshot.coronavirus.[place].gov/. It is important to note that some COVID mobile vaccine clinics are held outdoors and may be canceled in rainy or stormy conditions. To learn more about pediatric vaccinations (ages 5-11), we invite you to visit the [facility] webpage. [email or web address] learn more about the COVID-19 vaccine, we invite you to visit the CDC website for a list of frequently asked questions. https://www.cdc.gov/coronavirus/2019-ncov/vaccines/faq.html [facility] Patient Portal Access Instructions: Stay connected with your healthcare team and access your personal medical information anytime with the [facility] Patient Portal. If you would like a full copy of your medical records please contact the [facility] Medical Records Department Saturday through Saturday between 8a.m. and 4:30p.m. Please follow the directions below to access the portal: 1.Access the email account you provided upon registration to the hospital.2.Look for an invitation email from [facility].3.Open the email and access the invitation link: Accept Invitation to [facility]4.Fill in the required blanco to create your account. Sign into www.Health Integrated with your username and password that you created in the above steps to stay up to date. You can then view a summary of results, a summary of your visits, and the ability to download your summaries to your computer or send the information securely to a physician. Remember that your healthcare information is confidential, so carefully consider who you will allow to register on the [facility] Patient Portal for access to your information. You can also access the [facility] Patient Portal on the [employer] weston. Simply click on Health Records under [employer] and then click on the [employer] logo. HOW TO SAFELY DISPOSE OF PRESCRIPTION MEDICATIONS Please use one of the following methods to safely dispose of your unused medications. 1.Use a drug disposal kit: the drug disposal pouch allows you to safely discard your old and unuseddrugs. Ask your nurse to give you one when you are discharged.2.Visit a local take-back location: Many local pharmacies and police departments have programs that collect old and unwanted prescriptiondrugs. Call your local pharmacy or go to http://StayTuned.[employer]/0I2Ay5u to find one close to you.3.Make use of household items: Use cat litter or old coffee grounds to dispose medications if other options arenot available. Mix your drugs with these household products, seal them in an airtight container andthrow it into the garbage. Call [facility]: [phone] to be sure your drugs can be disposed of in this way. Some medicines may require a different approach.4.Never flush your medications down the toilet. IF YOU HAVE BEEN PRESCRIBED AN OPIOIDS FOR PAIN If you have been prescribed an opioid (such as hydrocodone, oxycodone or morphine), it is critical to understand the possible side effects and risks of opioid pain medications. Even when taken as directed, opioids can have several side effects including: Tolerance, meaning you might need to take more of a medication for the same pain relief. Nausea, vomiting and/or constipation. Sleepiness, dizziness, dry mouth, confusion, depression or itching. Physical dependence, meaning you have withdrawal symptoms when a medication is stopped ? this can develop within a few days. KNOW YOUR RESPONSIBILITIES It is important to know exactly how much and how often to take the opioid pain medications you are prescribed. Never take opioids in higher amounts or more often than prescribed. Do not combine opioids with alcohol or other drugs that cause drowsiness, such as benzodiazepines, also known as benzos,including diazepam and alprazolam, muscle relaxants or sleep aids. Never sell or share prescriptionopioids. This is illegal. Store opioids in a secure place and out of reach of others (including children, family, friends and visitors). The last page(s) of this document has been signed and retained as a CHART COPY Signatures Patient Education Materials Fungal Skin Infection (Tinea) Otitis Media, Antibiotic Treatment (Adult) Medication Leaflets My discharge plan and instructions have been reviewed and explained to me and IKARAN CHARLES J understand my current condition and have read and understand these discharge instructions. I have received a written copy of the plan/instructions. If I have questions, I am aware that I should contact my doctor. Patient/Chemist Organic Signature: Date/Time: Relationship to Patient: Witness Name/Signature: Date/Time: [facility]04-29-2024 Telephone encounter Note* Telephone Encounter - Katiuska Palomares RN - 08/12/2023 2:56 PM EDT Called and instructed [place] pharmacy not to fill script. Called and spoke with Yvette at [facility]. Gave her verbal order for antibiotic. [facility]04-29-2024 Miscellaneous Notes* Telephone Encounter - Katiuska Palomares RN - 08/12/2023 2:56 PM EDT Called and instructed [place] pharmacy not to fill script. Called and spoke with Yvette at [facility]. Gave her verbal order for antibiotic. * Telephone Encounter - Katiuska Palomares RN - 08/12/2023 2:34 PM EDT catering service manager Josefina returning the call as she states [facility] and that she thinks they attempted to call her. She is notified that pt has a staph infection and needs an antibiotic in addition to continuing the antifungal cream to the umbilicus. Notified that the antibiotic was sent tot pharmacy in [place]. She states that they no longer use that pharmacy and would like antibiotic sent to pt's mail order in [facility] [place]. Instructed that pt needs to start the antibiotic today so will need to send to a local pharmacy. After much encouragement, Josefina asks that script be sent to [facility] in [place] and she will pick it up there. Notified guardian Maggie Pura about pt's results and need for antibiotics. She requests that the nurse Veronica needs to be notified as soon as possible. Attempted to contact her and VM went to a [employer] COMPILER phone number. No msg left. Maggie had stated to call [facility] where pt is currently living and get Veronica's phone number. Called and spoke with Junie at [facility] who states Homa sometimes covers for Veronica. Re-attempted Veronica's number and got Homa's VM again. Called Homa Bender's cell number and LM of the above and pt's need for an antibiotic today and to return the call that she received this msg. Also called Junie back to see if she could let the nurse know to follow up on pt getting and receiving his antibiotic and aware pt has an antifungal cream that needs to be applied. She will email nurse and warehouse incentive selector in charge to follow up. * Telephone Encounter - Amilcar Veronica MD - 08/12/2023 8:36 AM EDT Culture grew staph bacteria. I have sent an oral antibiotic to the pharmacy in [place] to help treat. Continue applying the antifungal cream to the umbilicus. [facility] Tele[facility] encounter Note * Telephone Encounter - Katiuska Palomares RN - 08/12/2023 2:34 PM EDT catering service manager Josefina returning the call as she states [facility] and that she thinks they attempted to call her. She is notified that pt has a staph infection and needs an antibiotic in addition to continuing the antifungal cream to the umbilicus. Notified that the antibiotic was sent tot pharmacy in [place]. She states that they no longer use that pharmacy and would like antibiotic sent to pt's mail order in [place], [place]. Instructed that pt needs to start the antibiotic today so will need to send to a local pharmacy. After much encouragement, Josefina asks that script be sent to [facility] in [place] and she will pick it up there. Notified guardian Maggie Neves about pt's results and need for antibiotics. She requests that the nurse Veronica needs to be notified as soon as possible. Attempted to contact her and VM went to a [employer]oma Bender DIRECTORY COMPILER phone number. No msg left. Maggie had stated to call [facility] where pt is currently living and get Veronica's phone number. Called and spoke with Junie at [facility] who states Homa sometimes covers for Veronica. Re-attempted Veronica's number and got Homa's VM again. Called Homa Bender's cell number and LM of the above and pt's need for an antibiotic today and to return the call that she received this msg. Also called Junie back to see if she could let the nurse know to follow up on pt getting and receiving his antibiotic and aware pt has an antifungal cream that needs to be applied. She will email nurse and warehouse incentive selector in charge to follow up. [facility]04-29-2024 Telephone encounter Note* Telephone Encounter - Amilcar Veronica MD - 08/12/2023 8:36 AM EDT Culture grew staph bacteria. I have sent an oral antibiotic to the pharmacy in [place] to help treat. Continue applying the antifungal cream to the umbilicus. [facility]04-26-2024 NoteHNO ID: [id number] Author: AMILCAR VERONICA MD Service: ? Author Type: Physician Type: Progress Notes Filed: 08/09/2023 19:08 Note Text: Patient presents with: Abdominal Pain: Naval pain x1 day HPI: umbilical pain: Duration: noticed today Location: inside umbilicus Character: says it hurts Associated: redness, debris Pertinent negatives: Denies fever Recently hospitalized with new onset uncontrolled DM. MEDICATIONS: insulin aspart U-100 (NOVOLOG FLEXPEN U-100 INSULIN) 100 unit/mL (3 mL) Inject 4 Units subcutaneously three times a day before meals. oxybutynin ER (DITROPAN XL) 10 mg 24 hr tablet Take 10 mg by mouth once daily. zinc oxide (DESITIN DAILY DEFENSE TOPICAL) Apply to affected area. timolol/dorzolamide/latanop/PF (PVQXGFH-CEPLTVFQTA-PPGZBWL,PF,) 0.5-2-0.005 % drop Use in eyes. QUEtiapine (SEROQUEL) 25 mg tablet Take 1 tablet by mouth twice daily. donepezil (ARICEPT) 5 mg tablet Take 5 mg by mouth daily at bedtime. erythromycin (ROMYCIN) 5 mg/gram (0.5 %) ophthalmic ointment 1 application once daily. oxybutynin ER (DITROPAN XL) 10 mg 24 hr tablet Take 10 mg by mouth once daily. busPIRone (BUSPAR) 10 mg tablet Take 20 mg by mouth three times daily. escitalopram oxalate (LEXAPRO) 20 mg tablet Take 20 mg by mouth once daily. gabapentin (NEURONTIN) 100 mg capsule Take 100 mg by mouth twice daily. ketoconazole 2 % cream Apply 1 application to affected area twice daily. LORATADINE 10 MG TAB Take one(1) tablet daily for allergy symptoms including sneezing, itchy, watery eyes, and congestion ALLERGIES: ALLERGIES No Known Allergies VITALS: BP 130/78 Pulse 66 Temp 36.8 ?C (98.2 ?F) Resp 16 Wt 71.7 kg (158 lb 1.1 oz) SpO2 98% BMI 20.85 kg/m? PHYSICAL EXAM: GEN: pleasant, alert, no acute distress, hits himself in the cheek for soothing. Accompanied by his caregiver who provides the history. SKIN: erythema with crusty yellow debris inside the umbilicus ASSESSMENT/PLAN: 1. Umbilical discharge - ICD9: 789.9, ICD10: R19.8 Suspect fungal; uncontrolled DM contributing. Start - CLOTRIMAZOLE 1 % TOPICAL CREAM - ABSCESS AND WOUND CULTURE WITH GRAM STAIN to assess for bacterial dermatitis. Amilcar Veronica [facility]04-26-2024 History of Present illness Narrative* Amilcar Veronica MD - 08/09/2023 6:47 PM EDT Patient presents with: Abdominal Pain: Naval pain x1 day HPI: umbilical pain: Duration: noticed today Location: inside umbilicus Character: says it hurts Associated: redness, debris Pertinent negatives: Denies fever Recently hospitalized with new onset uncontrolled DM. MEDICATIONS: insulin aspart U-100 (NOVOLOG FLEXPEN U-100 INSULIN) 100 unit/mL (3 mL) Inject 4 Units subcutaneously three times a day before meals. oxybutynin ER (DITROPAN XL) 10 mg 24 hr tablet Take 10 mg by mouth once daily. zinc oxide (DESITIN DAILY DEFENSE TOPICAL) Apply to affected area. timolol/dorzolamide/latanop/PF (LKJBHNL-IURRLOTDZZ-IQVYJZK,PF,) 0.5-2-0.005 % drop Use in eyes. QUEtiapine (SEROQUEL) 25 mg tablet Take 1 tablet by mouth twice daily. donepezil (ARICEPT) 5 mg tablet Take 5 mg by mouth daily at bedtime. erythromycin (ROMYCIN) 5 mg/gram (0.5 %) ophthalmic ointment 1 application once daily. oxybutynin ER (DITROPAN XL) 10 mg 24 hr tablet Take 10 mg by mouth once daily. busPIRone (BUSPAR) 10 mg tablet Take 20 mg by mouth three times daily. escitalopram oxalate (LEXAPRO) 20 mg tablet Take 20 mg by mouth once daily. gabapentin (NEURONTIN) 100 mg capsule Take 100 mg by mouth twice daily. ketoconazole 2 % cream Apply 1 application to affected area twice daily. LORATADINE 10 MG TAB Take one(1) tablet daily for allergy symptoms including sneezing, itchy, watery eyes, and congestion ALLERGIES: ALLERGIES No Known Allergies VITALS: BP 130/78 Pulse 66 Temp 36.8 C (98.2 F) Resp 16 Wt 71.7 kg (158 lb 1.1 oz) SpO2 98% BMI20.85 kg/m PHYSICAL EXAM: GEN: pleasant, alert, no acute distress, hits himself in the cheek for soothing. Accompanied by hiscaregiver who provides the history. SKIN: erythema with crusty yellow debris inside the umbilicus ASSESSMENT/PLAN: 1. Umbilical discharge - ICD9: 789.9, ICD10: R19.8 Suspect fungal; uncontrolled DM contributing. Start - CLOTRIMAZOLE 1 % TOPICAL CREAM - ABSCESS AND WOUND CULTURE WITH GRAM STAIN to assess for bacterial dermatitis. Amilcar Veronica MD [facility] Hospital Discharge instructions Patient Education 07/29/2023 22:43:50 Diabetes, General Information General Information on Diabetes Diabetes is a long-term health problem. It means your body doesn't make enough insulin. Or it may mean that your body can't use the insulin it makes. Insulin is a hormone in your body. It lets blood sugar (glucose) reach the cells in your body. All of your cells need glucose for fuel. When you have diabetes, the glucose in your blood builds up because it can't get into the cells. This buildup is called high blood sugar (hyperglycemia). Your blood sugar level depends on several things. It depends on what kind of food you eat and how much of it you eat. It also depends on how much exercise you get, and how much insulin you have in your body. Eating too much of the wrong kinds of food or not taking diabetes medicine on time can cause high blood sugar. Infections can cause high blood sugar even if you are taking medicines correctly. These things can also cause low blood sugar: Missing meals Not eating enough food Unplanned or heavy exercise Taking too much diabetes medicine Diabetes can cause serious problems over time if you don't get treated. These problems include: Heart disease Stroke Kidney failure Blindness Nerve pain Loss of feeling in the legs and feet Tissue (gangrene) By keeping your blood sugar under control you can prevent or delay these problems. Normal blood sugar levels are 80mg/dL to 100 mg/dL before a meal. They are less than 180 mg/dL in the 1 to 2 hours after a meal. Home care Follow these guidelines when caring for yourself at home: Follow the diet your healthcare provider gives you. Take insulin or other diabetes medicine exactlyas told to. Watch your blood sugar as you are told to. Keep a log of your results. This will help your providerchange your medicines to keep your blood sugar under control. Try to reach your ideal weight. You may be able to cut back on or not have to take diabetes medicine if you eat the right foods and get exercise. Don't smoke. Smoking worsens the effects of diabetes on your circulation. You are much more likely to have a heart attack if you have diabetes and you smoke. Take good care of your feet. If you have lost feeling in your feet, you may not notice an injury orinfection. Check your feet and between your toes at least once a day. Use a mirror to check the bottoms of your feet. Wear a medical alert bracelet or necklace. Or carry a card in your wallet that says you have diabetes. This will help healthcare providers give you the right care if you get very ill and can't tell them that you have diabetes. Sick-day plan If you get a cold, the flu, or a bacterial or viral infection, take these steps: Look at your diabetes sick plan and call your healthcare provider as you were told to. You may needto call your provider right away if: oYour blood sugar is above 240 mg/dL while taking your diabetes medicine oYour urine ketone levels are above normal or high oYou have been vomiting more than 6 hours oYou have trouble breathing or your breath has a fruity smell oYou have a high fever oYou have a fever for several days and you are not getting better oYou get light-headed and are sleepier than usual Keep taking your diabetes pills (oral medicine) even if you have been vomiting and are feeling sick. Call your provider right away. This is because you may need insulin to lower your blood sugar until you recover from your illness. Keep taking your insulin even if you have been vomiting and are feeling sick. Call your provider right away to ask if you need to change your insulin dose. This will depend on your blood sugar results. Check your blood sugar every 2 to 4 hours, or at least 4 times a day. Check your ketones often. Watch them more often if you are vomiting and having diarrhea. Don't skip meals. Try to eat small meals on a regular schedule. Do this even if you don't feel likeeating. Drink water or other liquids that don't have caffeine or calories. This will keep you from getting dehydrated. If you are nauseated or vomiting, takes small sips every 5 minutes. To prevent dehydration try to drink a cup (8 ounces) of fluids every hour while you are awake. General care Always bring a source of fast-acting sugar with you in case you have symptoms of low blood sugar (below 70 mg/dL). At the first sign of low blood sugar, eat or drink 15 to 20 grams of fast-acting sugar to raise your blood sugar. Examples are: 3 to 4 glucose tablets. You can buy these at most drugstores. 4 ounces (1/2 cup) of regular (not diet) soft drinks 4 ounces (1/2 cup) of any fruit juice 8 ounces (1 cup) of milk 5 to 6 pieces of hard candy 1 tablespoon of honey Check your blood sugar 15 minutes after treating yourself. If it is still below 70 mg/dL, take 15 to 20 more grams of fast-acting sugar. Test again in 15 minutes. If it returns to normal (70 mg/dL orabove), eat a snack or meal to keep your blood sugar in a safe range. If it stays low, call your doctor or go to an emergency room. If you have had severe low blood sugar episodes, see that someone in your family is trained to giveyou a shot of glucagon. This will raise your blood sugar if you are unconscious and can't eat any of the above tablets or foods. Follow-up care Follow-up with your healthcare provider, or as advised. For more information about diabetes, visit the [place] [employer] website at www.diabetes.org. Or you can call [phone]. When to seek medical advice Call your healthcare provider right away if you have any of these symptoms of high blood sugar thatdon't go away with the above treatment suggestions: Urinating often Drowsiness Thirst Headache Nausea or vomiting Belly (abdominal) pain Eyesight changes Fast breathing Also call your provider right away if you have any of these signs of low blood sugar and they don'tgo away with the above treatment suggestions: Fatigue Headache Shakes Excess sweating Hunger Feeling anxious or restless Eyesight changes Drowsiness Weakness Call 911 Call 911 if any of these occur: Chest pain or shortness of breath Dizziness or fainting Weakness of an arm or leg or one side of the face Trouble speaking or seeing Confusion or loss of consciousness [phone] [employer]. [address] [place] [address], [place] [address]. All rights reserved. This information is not intended as a substitute for professional medical care. Always follow yourhealthcare professional's instructions. Follow Up Care 07/29/2023 21:25:40 With:GREGORIO CAMARA MD Address: [facility] [id number] [id number]- When:2-4 days [facility] Candice 04-15-2024 Note Discharge Instructions Thank you for allowing [facility] to assist you with your healthcare needs. The following is importantdischarge information regarding your hospital visit. Diagnosis from Today's Visit Diabetes mellitus Medical problem - minor, needs insulin, does not have supplies at half-way What to Do Next Instructions from Your Care Team We have left a message with Amy Lerner NP, who wrote the prescriptions for the insulin. She will reach out to you tomorrow to assist to get the prescriptions filled at the appropriate pharmacy. No qualifying data available. Post Acute Orders No qualifying data available. You Need to Schedule the Following Appointments Follow Up with GREGORIO CAMARA MD When Within 2-4 days Where: [facility]ULT [facility] [place] [place] [id number]- Allergies NKA Medications Please ask your primary doctor or pharmacist before taking any other medication not listed, including over the counter drugs, herbal medications, vitamins and or supplements as they may interact withyour home medications. What How Much When Why Instructions Last Dose Unchanged apixaban (apixaban 5 mg oral tablet) 1 tab(s) by mouth Two (2) times a day Duration: 30 Days Unchanged busPIRone (busPIRone 10 mg oral tablet) 1 tab(s) by mouth Three (3) times a day Unchanged DME (DME MISCellaneous) See instructions Pen needles. Unchanged DME (DME MISCellaneous) See instructions Glucometer, alcohol swabs, lancets. Unchanged DME (DME MISCellaneous) See instructions Type 2 diabetes mellitus 90 Glucometer strips. Unchanged DME (DME MISCellaneous) See instructions alcohol swabs. Unchanged DME (DME MISCellaneous) See instructions Type 2 diabetes mellitus Lancets for glucose to be checked TID. Unchanged DME (DME MISCellaneous) See instructions Type 2 diabetes mellitus Pen needles-120. Unchanged DME (DME MISCellaneous) See instructions Type 2 diabetes mellitus GLucometer. Unchanged DME (DME MISCellaneous) See instructions Type 2 diabetes mellitus Glucometer-Check glucose TIDAC. Unchanged donepezil (Aricept 5 mg oral tablet) 1 tab(s) by mouth Daily at bedtime Unchanged escitalopram (escitalopram 20 mg oral tablet) 1 tab(s) by mouth Once a day Unchanged gabapentin (gabapentin 100 mg oral capsule) 1 cap by mouth Two (2) times a day Unchanged insulin aspart (Novolog) (NovoLOG FlexPen 100 units/ mL injectable solution) 5 unit(s) Subcutaneous Three (3) times a day before meals Type 2 diabetes mellitus Duration: 30 Days Unchanged insulin glargine (Lantus Solostar Pen 100 units/ mL 3 mL Pen) 20 unit(s) Subcutaneous Two (2) times a day Type 2 diabetes mellitus Duration: 30 Days Unchanged insulin glargine (Lantus Solostar Pen 100 units/ mL 3 mL Pen) 20 unit(s) Subcutaneous Daily at bedtime Type 2 diabetes mellitus Unchanged loratadine 5 Milligram by mouth Once a day Unchanged metFORMIN (MetFORMIN (Eqv-Glucophage XR) 500 mg oral tablet, EXTENDED RELEASE) 1 tab(s) by mouth With supper Unchanged metoprolol (metoprolol succinate 25 mg oral TABLET extended release) 0.25 tab(s) by mouth Twice daily with meals Unchanged multivitamin (Multivitamin) 1 tab(s) by mouth Every day Unchanged oxybutynin (oxybutynin 10 mg/ 24 hr oral tablet, extended release) 1 tab(s) by mouth Once a day Please take this list to your next doctor s visit. Bring all medications you take, including over the counter medications, herbals and other supplements with you to your doctor s visit. Patients and families are reminded to discard old lists and to update any records with all medication providers or retail pharmacies. Education Materials General Information on Diabetes Diabetes is a long-term health problem. It means your body doesn't make enough insulin. Or it may mean that your body can't use the insulin it makes. Insulin is a hormone in your body. It lets blood sugar (glucose) reach the cells in your body. All of your cells need glucose for fuel. When you have diabetes, the glucose in your blood builds up because it can't get into the cells. This buildup is called high blood sugar (hyperglycemia). Your blood sugar level depends on several things. It depends on what kind of food you eat and how much of it you eat. It also depends on how much exercise you get, and how much insulin you have in your body. Eating too much of the wrong kinds of food or not taking diabetes medicine on time can cause high blood sugar. Infections can cause high blood sugar even if you are taking medicines correctly. These things can also cause low blood sugar: Missing meals Not eating enough food Unplanned or heavy exercise Taking too much diabetes medicine Diabetes can cause serious problems over time if you don't get treated. These problems include: Heart disease Stroke Kidney failure Blindness Nerve pain Loss of feeling in the legs and feet Tissue (gangrene) By keeping your blood sugar under control you can prevent or delay these problems. Normal blood sugar levels are 80mg/dL to 100 mg/dL before a meal. They are less than 180 mg/dL in the 1 to 2 hours after a meal. Home care Follow these guidelines when caring for yourself at home: Follow the diet your healthcare provider gives you. Take insulin or other diabetes medicine exactlyas told to. Watch your blood sugar as you are told to. Keep a log of your results. This will help your providerchange your medicines to keep your blood sugar under control. Try to reach your ideal weight. You may be able to cut back on or not have to take diabetes medicine if you eat the right foods and get exercise. Don't smoke. Smoking worsens the effects of diabetes on your circulation. You are much more likely to have a heart attack if you have diabetes and you smoke. Take good care of your feet. If you have lost feeling in your feet, you may not notice an injury orinfection. Check your feet and between your toes at least once a day. Use a mirror to check the bottoms of your feet. Wear a medical alert bracelet or necklace. Or carry a card in your wallet that says you have diabetes. This will help healthcare providers give you the right care if you get very ill and can't tell them that you have diabetes. Sick-day plan If you get a cold, the flu, or a bacterial or viral infection, take these steps: Look at your diabetes sick plan and call your healthcare provider as you were told to. You may needto call your provider right away if: García blood sugar is above 240 mg/dL while taking your diabetes medicine oYour urine ketone levels are above normal or high oYou have been vomiting more than 6 hours oYou have trouble breathing or your breath has a fruity smell oYou have a high fever oYou have a fever for several days and you are not getting better oYou get light-headed and are sleepier than usual Keep taking your diabetes pills (oral medicine) even if you have been vomiting and are feeling sick. Call your provider right away. This is because you may need insulin to lower your blood sugar until you recover from your illness. Keep taking your insulin even if you have been vomiting and are feeling sick. Call your provider right away to ask if you need to change your insulin dose. This will depend on your blood sugar results. Check your blood sugar every 2 to 4 hours, or at least 4 times a day. Check your ketones often. Watch them more often if you are vomiting and having diarrhea. Don't skip meals. Try to eat small meals on a regular schedule. Do this even if you don't feel likeeating. Drink water or other liquids that don't have caffeine or calories. This will keep you from getting dehydrated. If you are nauseated or vomiting, takes small sips every 5 minutes. To prevent dehydration try to drink a cup (8 ounces) of fluids every hour while you are awake. General care Always bring a source of fast-acting sugar with you in case you have symptoms of low blood sugar (below 70 mg/dL). At the first sign of low blood sugar, eat or drink 15 to 20 grams of fast-acting sugar to raise your blood sugar. Examples are: 3 to 4 glucose tablets. You can buy these at most drugstores. 4 ounces (1/2 cup) of regular (not diet) soft drinks 4 ounces (1/2 cup) of any fruit juice 8 ounces (1 cup) of milk 5 to 6 pieces of hard candy 1 tablespoon of honey Check your blood sugar 15 minutes after treating yourself. If it is still below 70 mg/dL, take 15 to 20 more grams of fast-acting sugar. Test again in 15 minutes. If it returns to normal (70 mg/dL orabove), eat a snack or meal to keep your blood sugar in a safe range. If it stays low, call your doctor or go to an emergency room. If you have had severe low blood sugar episodes, see that someone in your family is trained to giveyou a shot of glucagon. This will raise your blood sugar if you are unconscious and can't eat any of the above tablets or foods. Follow-up care Follow-up with your healthcare provider, or as advised. For more information about diabetes, visit the [place] Diabetes Association website at www.diabetes.org. Or you can call [phone]. When to seek medical advice Call your healthcare provider right away if you have any of these symptoms of high blood sugar thatdon't go away with the above treatment suggestions: Urinating often Drowsiness Thirst Headache Nausea or vomiting Belly (abdominal) pain Eyesight changes Fast breathing Also call your provider right away if you have any of these signs of low blood sugar and they don'tgo away with the above treatment suggestions: Fatigue Headache Shakes Excess sweating Hunger Feeling anxious or restless Eyesight changes Drowsiness Weakness Call 911 Call 911 if any of these occur: Chest pain or shortness of breath Dizziness or fainting Weakness of an arm or leg or one side of the face Trouble speaking or seeing Confusion or loss of consciousness 4832-7307 [employer]. [address] [place] [address]. All rights reserved. This information is not intended as a substitute for professional medical care. Always follow yourhealthcare professional's instructions. Additional Information VACCINATE! IT SAVES LIVES! Members of the community who have not yet received the COVID-19 vaccine and would like to receive it can visit one of [facility] vaccine clinics. There are many vaccine clinic locations within the [facility]. For locations and available times, please visit www.gettheshot.coronavirus.[place].gov/. It is important to note that some COVID mobile vaccine clinics are held outdoors and may be canceled in rainy or stormy conditions. To learn more about pediatric vaccinations (ages 5-11), we invite you to visit the [facility] webpage. [email or web address]/[email or web address] learn more about the COVID-19 vaccine, we invite you to visit the CDC website for a list of frequently asked questions. https://www.cdc.gov/coronavirus/2019-ncov/vaccines/faq.html [facility] Patient Portal Access Instructions: Stay connected with your healthcare team and access your personal medical information anytime with the [facility] [facility] Patient Portal. If you would like a full copy of your medical records please contact the [facility] Medical Records Department Saturday through Saturday between 8a.m. and 4:30p.m. Please follow the directions below to access the portal: 1.Access the email account you provided upon registration to the [facility].2.Look for an invitation email from [facility].3.Open the email and access the invitation link: Accept Invitation to [facility]4.Fill in the required blanco to create your account. Sign into www.Health Integrated with your username and password that you created in the above steps to stay up to date. You can then view a summary of results, a summary of your visits, and the ability to download your summaries to your computer or send the information securely to a physician. Remember that your healthcare information is confidential, so carefully consider who you will allow to register on the [facility] Patient Portal for access to your information. You can also access the [facility] Patient Portal on the [employer] weston. Simply click on Health Records under HealthData and then click on the [employer] logo. HOW TO SAFELY DISPOSE OF PRESCRIPTION MEDICATIONS Please use one of the following methods to safely dispose of your unused medications. 1.Use a drug disposal kit: the drug disposal pouch allows you to safely discard your old and unuseddrugs. Ask your nurse to give you one when you are discharged.2.Visit a local take-back location: Many local pharmacies and police departments have programs that collect old and unwanted prescriptiondrugs. Call your local pharmacy or go to http://bit.[employer]/1B8Ij5r to find one close to you.3.Make use of household items: Use cat litter or old coffee grounds to dispose medications if other options arenot available. Mix your drugs with these household products, seal them in an airtight container andthrow it into the garbage. Call [facility]: [phone] to be sure your drugs can be disposed of in this way. Some medicines may require a different approach.4.Never flush your medications down the toilet. IF YOU HAVE BEEN PRESCRIBED AN OPIOIDS FOR PAIN If you have been prescribed an opioid (such as hydrocodone, oxycodone or morphine), it is critical to understand the possible side effects and risks of opioid pain medications. Even when taken as directed, opioids can have several side effects including: Tolerance, meaning you might need to take more of a medication for the same pain relief. Nausea, vomiting and/or constipation. Sleepiness, dizziness, dry mouth, confusion, depression or itching. Physical dependence, meaning you have withdrawal symptoms when a medication is stopped ? this can develop within a few days. KNOW YOUR RESPONSIBILITIES It is important to know exactly how much and how often to take the opioid pain medications you are prescribed. Never take opioids in higher amounts or more often than prescribed. Do not combine opioids with alcohol or other drugs that cause drowsiness, such as benzodiazepines, also known as benzos,including diazepam and alprazolam, muscle relaxants or sleep aids. Never sell or share prescriptionopioids. This is illegal. Store opioids in a secure place and out of reach of others (including children, family, friends and visitors). The last page(s) of this document has been signed and retained as a CHART COPY Signatures Patient Education Materials Diabetes, General Information Medication Leaflets My discharge plan and instructions have been reviewed and explained to me and IKARAN CHARLES J understand my current condition and have read and understand these discharge instructions. I have received a written copy of the plan/instructions. If I have questions, I am aware that I should contact my doctor. Patient/Chemist Organic Signature: Date/Time: Relationship to Patient: Witness Name/Signature: Date[facility]Time[facility] Discharge instructions Patient Education 07/29/2023 16:37:23 Insulin Injection Instructions, Using Insulin Pens, Adult Insulin Injection Instructions, Using Insulin Pens, Adult A subcutaneous injection is a shot of medicine that is injected into the layer of fat and tissue between skin and muscle. People with type 1 diabetes must take insulin because their bodies do not make it. People with type 2 diabetes may need to take insulin. There are many different types of insulin. The type of insulin that you take may determine how manyinjections you give yourself and when you need to give the injections. Supplies needed: Soap and water to wash hands. Your insulin pen. A new, unused needle. Alcohol wipes. A disposal container that is meant for sharp items (sharps container), such as an empty plastic bottle with a cover. How to choose a site for injection The body absorbs insulin differently, depending on where the insulin is injected (injection site). It is best to inject insulin into the same body area each time (for example, always in the abdomen),but you should use a different spot in that area for each injection. Do not inject the insulin in the same spot each time. There are five main areas that can be used for injecting. These areas include: Abdomen. This is the preferred area. Front of thigh. Upper, outer side of thigh. Upper, outer side of arm. Upper, outer part of buttock. How to use an insulin pen First, follow the steps for Get ready, then continue with the steps for Inject the insulin. Get ready 1.Wash your hands with soap and water. If soap and water are not available, use hand chief substation operator. 2.Before you give yourself an insulin injection, be sure to test your blood sugar level (blood glucose level) and write down that number. Follow any instructions from your health care provider about what to do if your blood glucose level is higher or lower than your normal range. 3.Check the expiration date and the type of insulin that is in the pen. 4.If you are using CLEAR insulin, check to see that it is clear and free of clumps. 5.If you are using CLOUDY insulin, do not shake the pen to get the injection ready. Instead, get itready in one of these ways: Gently roll the pen between your palms several times. Tip the pen up and down several times. 6.Remove the cap from the insulin pen. 7.Use an alcohol wipe to clean the rubber tip of the pen. 8.Remove the protective paper tab from the disposable needle. Do not let the needle touch anything. 9.Screw a new, unused needle onto the pen. 10.Remove the outer plastic needle cover. Do not throw away the outer plastic cover yet. If the pen uses a special safety needle, leave the inner needle shield in place. If the pen does not use a special safety needle, remove the inner plastic cover from the needle. 11.Follow the archaeology professor's instructions to prime the insulin pen with the volume of insulin needed. Hold the pen with the needle pointing up, and push the button on the opposite end of the pen until a drop of insulin appears at the needle tip. If no insulin appears, repeat this step. 12.Turn the button (dial) to the number of units of insulin that you will be injecting. Inject the insulin 1.Use an alcohol wipe to clean the site where you will be injecting the needle. Let the site air-dry. 2.Hold the pen in the palm of your writing hand like a pencil. 3.If directed by your health care provider, use your other hand to pinch and hold about an inch (2.5 cm) of skin at the injection site. Do not directly touch the cleaned part of the skin. 4.Gently but quickly, use your writing hand to put the needle straight into the skin. The needle should be at a 90-degree angle (perpendicular) to the skin. 5.When the needle is completely inserted into the skin, use your thumb or index finger of your writing hand to push the top button of the pen down all the way to inject the insulin. 6.Let go of the skin that you are pinching. Continue to hold the pen in place with your writing hand. 7.Wait 10 seconds, then pull the needle straight out of the skin. This will allow all of the insulin to go from the pen and needle into your body. 8.Carefully put the larger (outer) plastic cover of the needle back over the needle, then unscrew the capped needle and discard it in a sharps container, such as an empty plastic bottle with a cover. 9.Put the plastic cap back on the insulin pen. How to throw away supplies Discard all used needles in a puncture-proof sharps disposal container. You can ask your local pharmacy about where you can get this kind of disposal container, or you can use an empty plastic liquidlaundry detergent bottle that has a cover. Follow the disposal regulations for the area where you live. Do not use any needle more than one time. Throw away empty disposable pens in the regular trash. Questions to ask your health care provider How often should I be taking insulin? How often should I check my blood glucose? What amount of insulin should I be taking at each time? What are the side effects? What should I do if my blood glucose is too high? What should I do if my blood glucose is too low? What should I do if I forget to take my insulin? What number should I call if I have questions? Where to find more information [place] Diabetes Association (ADA): www.diabetes.org [place] Association of Diabetes Educators (AADE) Patient Resources: https://www.diabeteseducator.org Summary A subcutaneous injection is a shot of medicine that is injected into the layer of fat and tissue between skin and muscle. Before you give yourself an insulin injection, be sure to test your blood sugar level (blood glucose level) and write down that number. Check the expiration date and the type of insulin that is in the pen. The type of insulin that you take may determine how many injections you give yourself and when you need to give the injections. It is best to inject insulin into the same body area each time (for example, always in the abdomen), but you should use a different spot in that area for each injection. This information is not intended to replace advice given to you by your health care provider. Make sure you discuss any questions you have with your health care provider. Document Released: 05/04/2016 Document Revised: 04/21/2018 Document Reviewed: 05/04/2016 [employer] Patient Education 2020 [employer] 07/29/2023 16:37:16 Type 2 Diabetes Mellitus, Self Care, Adult, [id number] Type 2 Diabetes Mellitus, Self Care, Adult When you have type 2 diabetes (type 2 diabetes mellitus), you must make sure your blood sugar (glucose) stays in a healthy range. You can do this with: Nutrition. Exercise. Lifestyle changes. Medicines or insulin, if needed. Support from your doctors and others. How to stay aware of blood sugar Check your blood sugar level every day, as often as told. Have your A1c (hemoglobin A1c) level checked two or more times a year. Have it checked more often if your doctor tells you to. Your doctor will set personal treatment goals for you. Generally, you should have these blood sugarlevels: Before meals (preprandial): 80 130 mg/dL (4.4 7.2 mmol/L). After meals (postprandial): below 180 mg/dL (10 mmol/L). A1c level: less than 7%. How to manage high and low blood sugar Signs of high blood sugar High blood sugar is called hyperglycemia. Know the signs of high blood sugar. Signs may include: Feeling: ?Thirsty. ?Hungry. ?Very tired. Needing to pee (urinate) more than usual. Blurry vision. Signs of low blood sugar Low blood sugar is called hypoglycemia. This is when blood sugar is at or below 70 mg/dL (3.9 mmol/L). Signs may include: Feeling: ?Hungry. ?Worried or nervous (anxious). ?Sweaty and clammy. ?Confused. ?Dizzy. ?Sleepy. ?Sick to your stomach (nauseous). Having: ?A fast heartbeat. ?A headache. ?A change in your vision. ?Jerky movements that you cannot control (seizure). ?Tingling or no feeling (numbness) around your mouth, lips, or tongue. Having trouble with: ?Moving (coordination). ?Sleeping. ?Passing out (fainting). ?Getting upset easily (irritability). Treating low blood sugar To treat low blood sugar, eat or drink something sugary right away. If you can think clearly and swallow safely, follow the 15:15 rule: Take 15 grams of a fast-acting carb (carbohydrate). Talk with your doctor about how much you shouldtake. Some fast-acting carbs are: ?Sugar tablets (glucose pills). Take 3 4 pills. ?6 8 pieces of hard candy. ?4 6 oz (120 150 mL) of fruit juice. ?4 6 oz (120 150 mL) of regular (not diet) soda. ?1 Tbsp (15 mL) honey or sugar. Check your blood sugar 15 minutes after you take the carb. If your blood sugar is still at or below 70 mg/dL (3.9 mmol/L), take 15 grams of a carb again. If your blood sugar does not go above 70 mg/dL (3.9 mmol/L) after 3 tries, get help right away. After your blood sugar goes back to normal, eat a meal or a snack within 1 hour. Treating very low blood sugar If your blood sugar is at or below 54 mg/dL (3 mmol/L), you have very low blood sugar (severe hypoglycemia). This is an emergency. Do not wait to see if the symptoms will go away. Get medical help right away. Call your local emergency services (911 in the [place] If you have very low blood sugar and you cannot eat or drink, you may need a glucagon shot (injection). A family member or friend should learn how to check your blood sugar and how to give you a glucagon shot. Ask your doctor if you need to have a glucagon shot kit at home. Follow these instructions at home: Medicine Take insulin and diabetes medicines as told. If your doctor says you should take more or less insulin and medicines, do this exactly as told. Do not run out of insulin or medicines. Having diabetes can raise your risk for other long-term conditions. These include heart disease andkidney disease. Your doctor may prescribe medicines to help you not have these problems. Food Make healthy food choices. These include: ?Chicken, fish, egg whites, and beans. ?Oats, whole wheat, bulgur, brown rice, quinoa, and millet. ?Fresh fruits and vegetables. ?Low-fat dairy products. ?Nuts, avocado, olive oil, and canola oil. Meet with a food handler (dietitian). He or she can help you make an eating plan that is right for you. Follow instructions from your doctor about what you cannot eat or drink. Drink enough fluid to keep your pee (urine) pale yellow. Keep track of carbs that you eat. Do this by reading food labels and learning food serving sizes. Follow your sick day plan when you cannot eat or drink normally. Make this plan with your doctor soit is ready to use. Activity Exercise 3 or more times a week. Do not go more than 2 days without exercising. Talk with your doctor before you start a new exercise. Your doctor may need to tell you to change: ?How much insulin or medicines you take. ?How much food you eat. Lifestyle Do not use any tobacco products. These include cigarettes, chewing tobacco, and e-cigarettes. If you need help quitting, ask your doctor. Ask your doctor how much alcohol is safe for you. Learn to deal with stress. If you need help with this, ask your doctor. Body care Stay up to date with your shots (immunizations). Have your eyes and feet checked by a doctor as often as told. Check your skin and feet every day. Check for cuts, bruises, redness, blisters, or sores. [place] your teeth and gums two times a day. Floss one or more times a day. Go to the dentist one or more times every 6 months. Stay at a healthy weight. General instructions Take lmem-njm-jdaskmg and prescription medicines only as told by your doctor. Share your diabetes care plan with: ?Your work or school. ?People you live with. Carry a card or wear jewelry that says you have diabetes. Keep all follow-up visits as told by your doctor. This is important. Questions to ask your doctor Do I need to meet with a database manager? Where can I find a support group for people with diabetes? Where to find more information To learn more about diabetes, visit: [employer]: www.diabetes.org [employer]: www.diabeteseducator.org Summary When you have type 2 diabetes, you must make sure your blood sugar (glucose) stays in a healthy range. Check your blood sugar every day, as often as told. Having diabetes can raise your risk for other conditions. Your doctor may prescribe medicines to help you not have these problems. Keep all follow-up visits as told by your doctor. This is important. This information is not intended to replace advice given to you by your health care provider. Make sure you discuss any questions you have with your health care provider. Document Released: 07/23/2016 Document Revised: 09/22/2018 Document Reviewed: 05/04/2016 [employer] Patient Education 2020 [employer] 07/29/2023 16:37:13 Type 2 Diabetes Mellitus, Diagnosis, Adult, Poko-ct-Hfem Type 2 Diabetes Mellitus, Diagnosis, Adult Type 2 diabetes (type 2 diabetes mellitus) is a long-term (chronic) disease. It may be caused by one or both of these problems: Your pancreas does not make enough of a hormone called insulin. Your body does not react in a normal way to insulin that it makes. Insulin lets sugars (glucose) go into cells in your body. This gives you energy. If you have type 2diabetes, sugars cannot get into cells. This causes high blood sugar (hyperglycemia). Your doctor will set treatment goals for you. Generally, you should have these blood sugar levels: Before meals (preprandial): 80 130 mg/dL (4.4 7.2 mmol/L). After meals (postprandial): below 180 mg/dL (10 mmol/L). A1c (hemoglobin A1c) level: less than 7%. Follow these instructions at home: Questions to ask your doctor You may want to ask these questions: ?Do I need to meet with a database manager? ?Where can I find a support group for people with diabetes? ?What equipment will I need to care for myself at home? ?What diabetes medicines do I need? When should I take them? ?How often do I need to check my blood sugar? ?What number can I call if I have questions? ?When is my next doctor's visit? General instructions Take smwg-kke-rljwfqv and prescription medicines only as told by your doctor. Keep all follow-up visits as told by your doctor. This is important. Contact a doctor if: Your blood sugar is at or above 240 mg/dL (13.3 mmol/L) for 2 days in a row. You have been sick for 2 days or more, and you are not getting better. You have had a fever for 2 days or more, and you are not getting better. You have any of these problems for more than 6 hours: ?You cannot eat or drink. ?You feel sick to your stomach (nauseous). ?You throw up (vomit). ?You have watery poop (diarrhea). Get help right away if: Your blood sugar is lower than 54 mg/dL (3 mmol/L). You get confused. You have trouble: ?Thinking clearly. ?Breathing. You have moderate or large ketone levels in your pee (urine). Summary Type 2 diabetes is a long-term (chronic) disease. Your pancreas may not make enough of a hormone called insulin, or your body may not react normally to insulin that it makes. Take tdud-eco-qcsiuzi and prescription medicines only as told by your doctor. Keep all follow-up visits as told by your doctor. This is important. This information is not intended to replace advice given to you by your health care provider. Make sure you discuss any questions you have with your health care provider. Document Released: 01/08/2009 Document Revised: 05/30/2018 Document Reviewed: 05/04/2016 [employer] Patient Education 2020 [employer]. 07/29/2023 16:36:55 Carbohydrate Counting for Diabetes Mellitus, Adult Carbohydrate Counting for Diabetes Mellitus, Adult Carbohydrate counting is a method of keeping track of how many carbohydrates you eat. Eating carbohydrates naturally increases the amount of sugar (glucose) in the blood. Counting how many carbohydrates you eat helps keep your blood glucose within normal limits, which helps you manage your diabetes(diabetes mellitus). It is important to know how many carbohydrates you can safely have in each meal. This is different for every person. A diet and nutritional services host (registered dietitian) can help you make a meal plan and calculate how many carbohydrates you should have at each meal and snack. Carbohydrates are found in the following foods: Grains, such as breads and cereals. Dried beans and soy products. Starchy vegetables, such as potatoes, peas, and corn. Fruit and fruit juices. Milk and yogurt. Sweets and snack foods, such as cake, cookies, candy, chips, and soft drinks. How do I count carbohydrates? There are two ways to count carbohydrates in food. You can use either of the methods or a combination of both. Reading Nutrition Facts on packaged food The Nutrition Facts list is included on the labels of almost all packaged foods and beverages in the [place] It includes: The serving size. Information about nutrients in each serving, including the grams (g) of carbohydrate per serving. To use the Nutrition Facts: Decide how many servings you will have. Multiply the number of servings by the number of carbohydrates per serving. The resulting number is the total amount of carbohydrates that you will be having. Learning standard serving sizes of other foods When you eat carbohydrate foods that are not packaged or do not include Nutrition Facts on the label, you need to measure the servings in order to count the amount of carbohydrates: Measure the foods that you will eat with a food scale or measuring cup, if needed. Decide how many standard-size servings you will eat. Multiply the number of servings by 15. Most carbohydrate-rich foods have about 15 g of carbohydrates per serving. ?For example, if you eat 8 oz (170 g) of strawberries, you will have eaten 2 servings and 30 g of carbohydrates (2 servings x 15 g = 30 g). For foods that have more than one food mixed, such as soups and casseroles, you must count the carbohydrates in each food that is included. The following list contains standard serving sizes of common carbohydrate-rich foods. Each of theseservings has about 15 g of carbohydrates: hamburger bun or Bulgarian muffin. oz (15 mL) syrup. oz (14 g) jelly. 1 slice of bread. 1 six-inch tortilla. 3 oz (85 g) cooked rice or pasta. 4 oz (113 g) cooked dried beans. 4 oz (113 g) starchy vegetable, such as peas, corn, or potatoes. 4 oz (113 g) hot cereal. 4 oz (113 g) mashed potatoes or of a large baked potato. 4 oz (113 g) canned or frozen fruit. 4 oz (120 mL) fruit juice. 4 6 crackers. 6 chicken nuggets. 6 oz (170 g) unsweetened dry cereal. 6 oz (170 g) plain fat-free yogurt or yogurt sweetened with artificial sweeteners. 8 oz (240 mL) milk. 8 oz (170 g) fresh fruit or one small piece of fruit. 24 oz (680 g) popped popcorn. Example of carbohydrate counting Sample meal 3 oz (85 g) chicken breast. 6 oz (170 g) brown rice. 4 oz (113 g) corn. 8 oz (240 mL) milk. 8 oz (170 g) strawberries with sugar-free whipped topping. Carbohydrate calculation 1.Identify the foods that contain carbohydrates: Rice. [place]. Milk. Strawberries. 2.Calculate how many servings you have of each food: 2 servings rice. 1 serving corn. 1 serving milk. 1 serving strawberries. 3.Multiply each number of servings by 15 servings rice x 15 g = 30 g. 1 serving corn x 15 g = 15 g. 1 serving milk x 15 g = 15 g. 1 serving strawberries x 15 g = 15 g. 4.Add together all of the amounts to find the total grams of carbohydrates eaten: 30 g + 15 g + 15 g + 15 g = 75 g of carbohydrates total. Summary Carbohydrate counting is a method of keeping track of how many carbohydrates you eat. Eating carbohydrates naturally increases the amount of sugar (glucose) in the blood. Counting how many carbohydrates you eat helps keep your blood glucose within normal limits, which helps you manage your diabetes. A diet and nutritional services host (registered dietitian) can help you make a meal plan and calculate how many carbohydrates you should have at each meal and snack. This information is not intended to replace advice given to you by your health care provider. Make sure you discuss any questions you have with your health care provider. Document Released: 04/01/2006 Document Revised: 10/24/2017 Document Reviewed: 09/12/2016 [employer] Patient Education 2020 [facility]. 07/29/2023 16:36:53 Blood Glucose Monitoring, Adult Blood Glucose Monitoring, Adult Monitoring your blood sugar (glucose) is an important part of managing your diabetes (diabetes mellitus). Blood glucose monitoring involves checking your blood glucose as often as directed and keeping a record (log) of your results over time. Checking your blood glucose regularly and keeping a blood glucose log can: Help you and your health care provider adjust your diabetes management plan as needed, including your medicines or insulin. Help you understand how food, exercise, illnesses, and medicines affect your blood glucose. Let you know what your blood glucose is at any time. You can quickly find out if you have low bloodglucose (hypoglycemia) or high blood glucose (hyperglycemia). Your health care provider will set individualized treatment goals for you. Your goals will be basedon your age, other medical conditions you have, and how you respond to diabetes treatment. Generally, the goal of treatment is to maintain the following blood glucose levels: Before meals (preprandial): 80 130 mg/dL (4.4 7.2 mmol/L). After meals (postprandial): below 180 mg/dL (10 mmol/L). A1c level: less than 7%. Supplies needed: Blood glucose meter. Test strips for your meter. Each meter has its own strips. You must use the strips that came with your meter. A needle to prick your finger (lancet). Do not use a lancet more than one time. A device that holds the lancet (lancing device). A journal or log book to write down your results. How to check your blood glucose 1.Wash your hands with soap and water. 2.Prick the side of your finger (not the tip) with the lancet. Use a different finger each time. 3.Gently rub the finger until a small drop of blood appears. 4.Follow instructions that come with your meter for inserting the test strip, applying blood to thestrip, and using your blood glucose meter. 5.Write down your result and any notes. Some meters allow you to use areas of your body other than your finger (alternative sites) to test your blood. The most common alternative sites are: Forearm. Thigh. Palm of the hand. If you think you may have hypoglycemia, or if you have a history of not knowing when your blood glucose is getting low (hypoglycemia unawareness), do not use alternative sites. Use your finger instead. Alternative sites may not be as accurate as the fingers, because blood flow is slower in these areas. This means that the result you get may be delayed, and it may be different from the result thatyou would get from your finger. Follow these instructions at home: Blood glucose log Every time you check your blood glucose, write down your result. Also write down any notes about things that may be affecting your blood glucose, such as your diet and exercise for the day. This information can help you and your health care provider: ?Look for patterns in your blood glucose over time. ?Adjust your diabetes management plan as needed. Check if your meter allows you to download your records to a computer. Most glucose meters store a record of glucose readings in the meter. If you have type 1 diabetes: Check your blood glucose 2 or more times a day. Also check your blood glucose: ?Before every insulin injection. ?Before and after exercise. ?Before meals. ?2 hours after a meal. ?Occasionally between 2:00 a.m. and 3:00 a.m., as directed. ?Before potentially dangerous tasks, like driving or using heavy machinery. ?At bedtime. You may need to check your blood glucose more often, up to 6 10 times a day, if you: ?Use an insulin pump. ?Need multiple daily injections (MDI). ?Have diabetes that is not well-controlled. ?Are ill. ?Have a history of severe hypoglycemia. ?Have hypoglycemia unawareness. If you have type 2 diabetes: If you take insulin or other diabetes medicines, check your blood glucose 2 or more times a day. If you are on intensive insulin therapy, check your blood glucose 4 or more times a day. Occasionally, you may also need to check between 2:00 a.m. and 3:00 a.m., as directed. Also check your blood glucose: ?Before and after exercise. ?Before potentially dangerous tasks, like driving or using heavy machinery. You may need to check your blood glucose more often if: ?Your medicine is being adjusted. ?Your diabetes is not well-controlled. ?You are ill. General tips Always keep your supplies with you. If you have questions or need help, all blood glucose meters have a 24-hour hotline phone number that you can call. You may also contact your health care provider. After you use a few boxes of test strips, adjust (calibrate) your blood glucose meter by following instructions that came with your meter. Contact a health care provider if: Your blood glucose is at or above 240 mg/dL (13.3 mmol/L) for 2 days in a row. You have been sick or have had a fever for 2 days or longer, and you are not getting better. You have any of the following problems for more than 6 hours: ?You cannot eat or drink. ?You have nausea or vomiting. ?You have diarrhea. Get help right away if: Your blood glucose is lower than 54 mg/dL (3 mmol/L). You become confused or you have trouble thinking clearly. You have difficulty breathing. You have moderate or large ketone levels in your urine. Summary Monitoring your blood sugar (glucose) is an important part of managing your diabetes (diabetes mellitus). Blood glucose monitoring involves checking your blood glucose as often as directed and keeping a record (log) of your results over time. Your health care provider will set individualized treatment goals for you. Your goals will be basedon your age, other medical conditions you have, and how you respond to diabetes treatment. Every time you check your blood glucose, write down your result. Also write down any notes about things that may be affecting your blood glucose, such as your diet and exercise for the day. This information is not intended to replace advice given to you by your health care provider. Make sure you discuss any questions you have with your health care provider. Document Released: 04/03/2004 Document Revised: 01/23/2019 Document Reviewed: 09/10/2016 [employer] Patient Education 2020 [facility]. 07/29/2023 16:36:45 Indwelling Urinary Catheter Care, Adult Indwelling Urinary Catheter Care, Adult An indwelling urinary catheter is a thin, flexible, germ-free (sterile) tube that is placed into the bladder to help drain urine out of the body. The catheter is inserted into the part of the body that drains urine from the bladder (urethra). Urine drains from the catheter into a drainage bag outside of the body. Taking good care of your catheter will keep it working properly and help to prevent problems from developing. What are the risks? Bacteria may get into your bladder and cause a urinary tract infection. Urine flow can become blocked. This can happen if the catheter is not working correctly, or if you have sediment or a blood clot in your bladder or the catheter. Tissue near the catheter may become irritated and bleed. How to wear your catheter and your drainage bag Supplies needed Adhesive tape or a leg strap. Alcohol wipe or soap and water (if you use tape). A clean towel (if you use tape). Overnight drainage bag. Smaller drainage bag (leg bag). Wearing your catheter and bag Use adhesive tape or a leg strap to attach your catheter to your leg. Make sure the catheter is not pulled tight. If a leg strap gets wet, replace it with a dry one. If you use adhesive tape: 1.Use an alcohol wipe or soap and water to wash off any stickiness on your skin where you had tape before. 2.Use a clean towel to pat-dry the area. 3.Apply the new tape. You should have received a large overnight drainage bag and a smaller leg bag that fits underneath clothing. You may wear the overnight bag at any time, but you should not wear the leg bag at night. Always wear the leg bag below your knee. Make sure the overnight drainage bag is always lower than the level of your bladder, but do not letit touch the floor. Before you go to sleep, hang the bag inside a wastebasket that is covered by a clean plastic bag. How to care for your skin around the catheter Supplies needed A clean washcloth. Water and mild soap. A clean towel. Caring for your skin and catheter Every day, use a clean washcloth and soapy water to clean the skin around your catheter. 1.Wash your hands with soap and water. 2.Wet a washcloth in warm water and mild soap. 3.Clean the skin around your urethra. ?If you are female: ?Use one hand to gently spread the folds of skin around your vagina (labia). ?With the washcloth in your other hand, wipe the inner side of your labia on each side. Do this in a [id number] direction. ?If you are male: ?Use one hand to pull back any skin that covers the end of your penis (foreskin). ?With the washcloth in your other hand, wipe your penis in small circles. Start wiping at the tip of your penis, then move outward from the catheter. ?Move the foreskin back in place, if this applies. 4.With your free hand, hold the catheter close to where it enters your body. Keep holding the catheter during cleaning so it does not get pulled out. 5.Use your other hand to clean the catheter with the washcloth. ?Only wipe downward on the catheter. ?Do not wipe upward toward your body, because that may push bacteria into your urethra and cause infection. 6.Use a clean towel to pat-dry the catheter and the skin around it. Make sure to wipe off all soap. 7.Wash your hands with soap and water. Shower every day. Do not take baths. Do not use cream, ointment, or lotion on the area where the catheter enters your body, unless your health care provider tells you to do that. Do not use powders, sprays, or lotions on your genital area. Check your skin around the catheter every day for signs of infection. Check for: ?Redness, swelling, or pain. ?Fluid or blood. ?Warmth. ?Pus or a bad smell. How to empty the drainage bag Supplies needed Rubbing alcohol. Gauze pad or cotton ball. Adhesive tape or a leg strap. Emptying the bag Empty your drainage bag (your overnight drainage bag or your leg bag) when it is ? full, or at least 2 3 times a day. Clean the drainage bag according to the archaeology professor's instructions or as told byyour health care provider. 1.Wash your hands with soap and water. 2.Detach the drainage bag from your leg. 3.Hold the drainage bag over the toilet or a clean container. Make sure the drainage bag is lower than your hips and bladder. This stops urine from going back into the tubing and into your bladder. 4.Open the pour spout at the bottom of the bag. 5.Empty the urine into the toilet or container. Do not let the pour spout touch any surface. This precaution is important to prevent bacteria from getting in the bag and causing infection. 6.Apply rubbing alcohol to a gauze pad or cotton ball. 7.Use the gauze pad or cotton ball to clean the pour spout. 8.Close the pour spout. 9.Attach the bag to your leg with adhesive tape or a leg strap. 10.Wash your hands with soap and water. How to change the drainage bag Supplies needed: Alcohol wipes. A clean drainage bag. Adhesive tape or a leg strap. Changing the bag Replace your drainage bag with a clean bag if it leaks, starts to smell bad, or looks dirty. 1.Wash your hands with soap and water. 2.Detach the dirty drainage bag from your leg. 3.Pinch the catheter with your fingers so that urine does not spill out. 4.Disconnect the catheter tube from the drainage tube at the connection valve. Do not let the tubestouch any surface. 5.Clean the end of the catheter tube with an alcohol wipe. Use a different alcohol wipe to clean the end of the drainage tube. 6.Connect the catheter tube to the drainage tube of the clean bag. 7.Attach the clean bag to your leg with adhesive tape or a leg strap. Avoid attaching the new bag too tightly. 8.Wash your hands with soap and water. General instructions Never pull on your catheter or try to remove it. Pulling can damage your internal tissues. Always wash your hands before and after you handle your catheter or drainage bag. Use a mild, fragrance-free soap. If soap and water are not available, use hand chief substation operator. Always make sure there are no twists or bends (kinks) in the catheter tube. Always make sure there are no leaks in the catheter or drainage bag. Drink enough fluid to keep your urine pale yellow. Do not take baths, swim, or use a hot tub. If you are female, wipe from front to back after having a bowel movement. Contact a health care provider if: Your urine is cloudy. Your urine smells unusually bad. Your catheter gets clogged. Your catheter starts to leak. Your bladder feels full. Get help right away if: You have redness, swelling, or pain where the catheter enters your body. You have fluid, blood, pus, or a bad smell coming from the area where the catheter enters your body. The area where the catheter enters your body feels warm to the touch. You have a fever. You have pain in your abdomen, legs, lower back, or bladder. You see blood in the catheter. Your urine is pink or red. You have nausea, vomiting, or chills. Your urine is not draining into the bag. Your catheter gets pulled out. Summary An indwelling urinary catheter is a thin, flexible, germ-free (sterile) tube that is placed into the bladder to help drain urine out of the body. The catheter is inserted into the part of the body that drains urine from the bladder (urethra). Take good care of your catheter to keep it working properly and help prevent problems from developing. Always wash your hands before and after you handle your catheter or drainage bag. Never pull on your catheter or try to remove it. This information is not intended to replace advice given to you by your health care provider. Make sure you discuss any questions you have with your health care provider. Document Released: 04/01/2006 Document Revised: 07/24/2019 Document Reviewed: 11/15/2017 [employer] Patient Education 2020 [employer]. Follow Up Care 07/27/2023 19:42:45 With:Follow up Urology in 2 weeks. Carroll Catheter placed due to urinary retention. Address:Unknown When: Unknown With:KASSANDRA MCGOVERN MD, [facility] Address: [address] [facility] [address] [place] [address]- When:5 to 7 days Comments:New diagnosis of diabetes mellitus With:GREGORIO CAMARA MD Address: [facility] [address] [place] [address] [address] [place] [address]- When:2-4 days [facility] 04-15-2024 Note Discharge Instructions Thank you for allowing [facility] to assist you with your healthcare needs. The following is importantdischarge information regarding your hospital visit. Your Care Team [facility] Your Diagnosis KEN (acute kidney injury) Atrial fibrillation COVID-19 Developmental delay Hyperosmolar hyperglycemic state (HHS) Type 2 diabetes mellitus Weakness What to do next Follow Up Appointments Follow Up with Follow up Urology in 2 weeks. Carroll Catheter placed due to urinary retention. When Follow Up with KASSANDRA MCGOVERN MD, [facility] When Within 5 to 7 days Why: New diagnosis of diabetes mellitus Where: [address] [place] [address]- Follow Up with GREGORIO CAMARA MD When Within 2-4 days Where: [facility] [address] [place] [address]- The Following Activity and Diet Have Been Ordered for You Discharge Activity - Ordered -- Resume your pre-hospitalization activity, 07/29/23 16:52:00 EDT Discharge Diet - Ordered -- No changes were made to your diet during your hospital stay. Please resume your pre hospitalization diet on discharge., 07/29/23 16:52:00 EDT The Following Treatments Have Been Ordered for You Discharge Labs Discharge Outpatient Labwork - Ordered -- cbc, new anticoagulants /afib, follow-up within: 5-7 days, 07/29/23 16:52:00 EDT Discharge Radiology No qualifying data available. Other Therapies No qualifying data available. Post Acute Orders No qualifying data available. Allergies NKA Medications Please ask your primary doctor or pharmacist before taking any other medication not listed, including over the counter drugs, herbal medications, vitamins and or supplements as they may interact withyour home medications. What How Much When Instructions Last Dose New apixaban (apixaban 5 mg oral tablet) 1 tab(s) by mouth Two (2) times a day Duration: 30 Days Pickup at [facility]/pharmacy #[id number] New DME (DME MISCellaneous) See instructions Pen needles. Pickup at [facility]/pharmacy #[id number] New DME (DME MISCellaneous) See instructions Glucometer, alcohol swabs, lancets. Pickup at [facility]/pharmacy #[id number] New insulin aspart (Novolog) (NovoLOG FlexPen 100 units/ mL injectable solution) 5 unit(s) Subcutaneous Three (3) times a day before meals Duration: 30 Days [id number] 430[facility] New insulin glargine (Lantus Solostar Pen 100 units/ mL 3 mL Pen) 20 unit(s) Subcutaneous Daily at bedtime [id number] New metFORMIN (MetFORMIN (Eqv-Glucophage XR) 500 mg oral tablet, EXTENDED RELEASE) 1 tab(s) by mouth With supper [id number] 430pm New metoprolol (metoprolol succinate 25 mg oral TABLET extended release) 0.25 tab(s) by mouth Twice daily with meals [id number] 8am * held evening dose due to low heart rate Unchanged busPIRone (busPIRone 10 mg oral tablet) 1 tab(s) by mouth Three (3) times a day Unchanged donepezil (Aricept 5 mg oral tablet) 1 tab(s) by mouth Daily at bedtime Unchanged escitalopram (escitalopram 20 mg oral tablet) 1 tab(s) by mouth Once a day Unchanged gabapentin (gabapentin 100 mg oral capsule) 1 cap by mouth Two (2) times a day Unchanged loratadine 5 Milligram by mouth Once a day Unchanged multivitamin (Multivitamin) 1 tab(s) by mouth Every day Unchanged oxybutynin (oxybutynin 10 mg/ 24 hr oral tablet, extended release) 1 tab(s) by mouth Once a day Pharm[facility] Information [id number] [address] [place], [place] [id number] [phone] Please take this list to your next doctor s visit. Bring all medications you take, including over the counter medications, herbals and other supplements with you to your doctor s visit. Patients and families are reminded to discard old lists and to update any records with all medication providers or retail pharmacies. Medication Leaflets metoprolol (oral/injection) (me TOE pro lol) Kapspargo Ashtyn, Lopressor, Metoprolol Succinate ER, Metoprolol Tartrate, Toprol-XL What is the most important information I should know about metoprolol? You should not use this medicine if you have a serious heart problem (heart block, sick sinus syndrome, slow heart rate), severe circulation problems, severe heart failure, or a history of slow heartbeats that caused fainting. What is metoprolol? Metoprolol is a beta-adilia that affects the heart and circulation (blood flow through arteries and veins). Metoprolol is used to treat angina (chest pain) and hypertension (high blood pressure). It is also used to lower your risk of or needing to be hospitalized for heart failure. Metoprolol injection is used during the early phase of a heart attack to lower the risk of . Metoprolol may also be used for other purposes not listed in this medication guide. What should I discuss with my healthcare provider before taking metoprolol? You should not use this medicine if you are allergic to metoprolol, or other beta-blockers (atenolol, carvedilol, labetalol, nadolol, nebivolol, propranolol, sotalol, and others), or if you have: a serious heart problem such as heart block, sick sinus syndrome, or slow heart rate; severe circulation problems; severe heart failure (that required you to be in the hospital); or a history of slow heart beats that have caused you to faint. Tell your doctor if you have ever had: asthma, chronic obstructive pulmonary disease (COPD), sleep apnea, or other breathing disorder; diabetes (taking metoprolol may make it harder for you to tell when you have low blood sugar); liver disease; congestive heart failure; problems with circulation (such as Raynaud's syndrome); a thyroid disorder; or pheochromocytoma (tumor of the adrenal gland). Do not give this medicine to a child without medical advice. Tell your doctor if you are or plan to become . It is not known whether metoprololwill harm an unborn baby. However, having high blood pressure during may cause complications such as diabetes or eclampsia (dangerously high blood pressure that can lead to medical problemsin both mother and baby). The benefit of treating hypertension may outweigh any risks to the baby. Ask a doctor before using this medicine if you are breast-feeding. Metoprolol can pass into breast milk and may cause dry skin, dry mouth, diarrhea, constipation, or slow heartbeats in your baby. How should I take metoprolol? Follow all directions on your prescription label and read all medication guides or instruction sheets. Your doctor may occasionally change your dose. Use the medicine exactly as directed. Metoprolol should be taken with a meal or just after a meal. Take the medicine at the same time each day. Swallow the capsule whole and do not crush, chew, break, or open it. A Toprol XL tablet can be divided in half if your doctor has told you to do so. Swallow the half-tablet whole, without chewing or crushing. Measure liquid medicine carefully. Use the dosing syringe provided, or use a medicine dose-measuring device (not a kitchen spoon). You will need frequent medical tests, and your blood pressure will need to be checked often. If you need surgery, tell the surgeon ahead of time that you are using metoprolol. You should not stop using metoprolol suddenly. Stopping suddenly may make your condition worse. If you have high blood pressure, keep using this medicine even if you feel well. High blood pressure often has no symptoms. You may need to use metoprolol for the rest of your life. Store at room temperature away from moisture and heat. Metoprolol injection is given as an infusion into a vein. A healthcare provider will give you this injection in a medical setting where your heart and blood pressure can be monitored. Metoprolol injections are given for only a short time before switching you to the oral form of this medicine. What happens if I miss a dose? Skip the missed dose and use your next dose at the regular time. Do not use two doses at one time. What happens if I overdose? Seek emergency medical attention or call the Poison Help line at . What should I avoid while taking metoprolol? Avoid driving or hazardous activity until you know how this medicine will affect you. Your reactions could be impaired. Drinking alcohol can increase certain side effects of metoprolol. What are the possible side effects of metoprolol? Get emergency medical help if you have signs of an allergic reaction: hives; difficulty breathing; swelling of your face, lips, tongue, or throat. Call your doctor at once if you have: very slow heartbeats; a light-headed feeling, like you might pass out; shortness of breath (even with mild exertion), swelling, rapid weight gain; or cold feeling in your hands and feet. Common side effects may include: dizziness, tired feeling; depression, confusion, memory problems; nightmares, trouble sleeping; diarrhea; or mild itching or rash. This is not a complete list of side effects and others may occur. Call your doctor for medical advice about side effects. You may report side effects to FDA at 1-984-PFJ-1869. What other drugs will affect metoprolol? Tell your doctor about all your current medicines. Many drugs can affect metoprolol, especially: any other heart or blood pressure medications; epinephrine (Epi-Pen); an antidepressant; an ergot medicine--dihydroergotamine, ergonovine, ergotamine, methylergonovine; or an MAO inhibitor--isocarboxazid, linezolid, phenelzine, rasagiline, selegiline, tranylcypromine. This list is not complete and many other drugs may affect metoprolol. This includes prescription and jftp-qxh-bvglkis medicines, vitamins, and herbal products. Not all possible drug interactions are listed here. Where can I get more information? Your pharmacist can provide more information about metoprolol. Remember, keep this and all other medicines out of the reach of children, never share your medicines with others, and use this medication only for the indication prescribed. Every effort has been made to ensure that the information provided by [employer]. [employer]') is accurate, up-to-date, and complete, but no guarantee is made to that effect. Drug information contained herein may be time sensitive. [employer] information has been compiled for use by healthcare practitioners and consumers in the [place] and therefore [employer] does not warrant that uses outside of the [place] are appropriate, unless specifically indicated otherwise. [employer] drug information does not endorse drugs, diagnose patients or recommend therapy. [employer] drug information isan informational resource designed to assist licensed healthcare practitioners in caring for their p atients and/or to serve consumers viewing this service as a supplement to, and not a substitute for, the expertise, skill, knowledge and judgment of healthcare practitioners. The absence of a warningfor a given drug or drug combination in no way should be construed to indicate that the drug or drug combination is safe, effective or appropriate for any given patient. [employer] does not assume any responsibility for any aspect of healthcare administered with the aid of information [employer] provides. The information contained herein is not intended to cover all possible uses, directions, precautions, warnings, drug interactions, allergic reactions, or adverse effects. If you have questions about the drugs you are taking, check with your doctor, nurse or pharmacist. Copyright 3755-7337 [employer]. Version: 19.01. Revision Date: 11/21/2022. insulin glargine (IN marr thai GLADong gine) Basaglar KwikPen, Basaglar Tempo Pen, Insulin Glargine Prefilled Pen, Insulin Glargine Solostar Pen, Lantus, Lantus Solostar Pen, Semglee (Prefilled Pen), Semglee (Vial), Toujeo Max SoloStar, Toujeo SoloStar What is the most important information I should know about insulin glargine? Never share an injection pen, even if you changed the needle. What is insulin glargine? Insulin glargine is a long-acting insulin that starts to work several hours after injection and keeps working evenly for 24 hours. Insulin glargine is used to improve blood sugar control in people with diabetes mellitus. Toujeo is for use in adults with type 1 or type 2 diabetes. Basaglar, Lantus, and Semglee are for use in adults with type 1 or 2 diabetes and in children at least 6 years old with type 1 diabetes (not type 2). For type 1 diabetes, insulin glargine is used together with a short-acting insulin given before meals. Insulin glargine may also be used for purposes not listed in this medication guide. What should I discuss with my healthcare provider before using insulin glargine? You should not use this medicine if you are allergic to insulin, or if you are having an episode ofhypoglycemia (low blood sugar) or diabetic ketoacidosis (call your doctor for treatment). Insulin glargine is not approved for use by anyone younger than 6 years old, and some brands are for use only in adults. Do not use this medicine to treat type 2 diabetes in a child of any age. Tell your doctor if you have ever had: liver or kidney disease; or heart failure or other heart problems. Tell your doctor if you also take pioglitazone or rosiglitazone (sometimes contained in combinations with glimepiride or metformin). Taking certain oral diabetes medicines while you are using insulinmay increase your risk of serious heart problems. Tell your doctor if you are or . Follow your doctor's instructions about using this medicine if you are or you become . Controlling diabetes is very important during . How should I use insulin glargine? Follow all directions on your prescription label and read all medication guides or instruction sheets. Use the medicine exactly as directed. Insulin glargine is injected under the skin, usually once per day at the same time of day. When treating type 1 diabetes, use your short-acting insulin before meals as directed by your doctor. Insulin glargine must not be given with an insulin pump, or mixed with other insulins. Do not inject insulin glargine into a vein or a muscle. Ask your doctor or pharmacist if you don't understand how to use an injection. Prepare an injection only when you are ready to give it. Call your pharmacist if the medicine lookscloudy, has changed colors, or has particles in it. Your healthcare provider will show you where to inject insulin glargine. Do not inject into the same place two times in a row. Avoid injecting into skin that is damaged, tender, bruised, pitted, thickened, scaly, or has a scaror hard lump. Toujeo contains 300 units of insulin glargine per milliliter (mL), which is 3 times stronger than brands that contain 100 units per mL. Your dose needs may change if you switch to a different brand, strength, or form of this medicine. Avoid medication errors by using only the medicine your doctor prescribes. If you use an injection pen, use only the injection pen that comes with insulin glargine. Attach a new needle before each use. Do not transfer the insulin from the pen into a syringe. Never share an injection pen, even if you changed the needle. Sharing these devices can pass infections from person to person. Blood sugar can be affected by stress, illness, surgery, exercise, alcohol use, or skipping meals. Low blood sugar (hypoglycemia) can make you feel very hungry, dizzy, irritable, or shaky. To quickly treat hypoglycemia, eat or drink hard candy, crackers, raisins, fruit juice, or non-diet soda. Your doctor may prescribe glucagon injection in case of severe hypoglycemia. Tell your doctor if you have frequent symptoms of high blood sugar (hyperglycemia) such as increased thirst or urination. Ask your doctor before changing your medication dosage. Keep this medicine in its original container protected from heat and light. Do not freeze insulin or store it near the cooling element in a refrigerator. Throw away any insulin that has been frozen. Storing unopened (not in use) insulin glargine: Refrigerate and use until expiration date; or (Basaglar, Lantus, or Semglee) Store at room temperature (below 86 degrees Fahrenheit) and use within 28 days. Storing opened (in use) insulin glargine: Store the vial in a refrigerator or at room temperature and use within 28 days. Store the injection pen at room temperature (do not refrigerate) and use within 28 days. Store Toujeo at room temperature below 86 F (do not refrigerate) and use within 56 days. Do not store an injection pen with the needle attached. Do not reuse a needle or syringe. Place them in a puncture-proof 'sharps' container and dispose of it following state or local laws. Keep out of the reach of children and pets. Wear a medical alert tag or carry an ID card to let others know you have diabetes. What happens if I miss a dose? Call your doctor for instructions if you miss a dose. Do not use more than one dose in a 24-hour period unless your doctor tells you to. Get your prescription refilled before you run out of medicine completely. What happens if I overdose? Seek emergency medical attention or call the Poison Help line at . Insulin overdose can cause severe hypoglycemia. Symptoms include drowsiness, confusion, blurred vision, numbness or tingling in your mouth, trouble speaking, muscle weakness, clumsy or jerky movements, seizure (convulsions), or loss of consciousness. What should I avoid while using insulin glargine? Avoid driving or hazardous activity until you know how this medicine will affect you. Your reactions could be impaired. Avoid medication errors by always checking the medicine label before injecting your insulin. Avoid drinking alcohol or using medicines that contain alcohol. It may interfere with your diabetestreatment. What are the possible side effects of insulin glargine? Get emergency medical help if you have signs of insulin allergy: redness or swelling where an injection was given, itchy skin rash over the entire body, trouble breathing, fast heartbeats, feeling like you might pass out, or swelling in your tongue or throat. Call your doctor at once if you have: rapid weight gain, swelling in your feet or ankles; shortness of breath; or low blood potassium--leg cramps, constipation, irregular heartbeats, fluttering in your chest, increased thirst or urination, numbness or tingling, muscle weakness or limp feeling. Common side effects may include: low blood sugar; swelling, weight gain; allergic reaction, itching, rash; or thickening or hollowing of the skin where you injected the medicine. This is not a complete list of side effects and others may occur. Call your doctor for medical advice about side effects. You may report side effects to FDA at 9-915-HIO-2857. What other drugs will affect insulin glargine? Many drugs can affect your blood sugar and may also affect insulin glargine. This includes prescription and hyge-lwi-unvdngm medicines, vitamins, and herbal products. Tell your doctor about all othermedicines you use. Not all possible interactions are listed here. Where can I get more information? Your pharmacist can provide more information about insulin glargine. Remember, keep this and all other medicines out of the reach of children, never share your medicines with others, and use this medication only for the indication prescribed. Every effort has been made to ensure that the information provided by [employer]. [employer]') is accurate, up-to-date, and complete, but no guarantee is made to that effect. Drug information contained herein may be time sensitive. [employer] information has been compiled for use by healthcare practitioners and consumers in the [place] and therefore [employer] does not warrant that uses outside of the [place] are appropriate, unless specifically indicated otherwise. [employer] drug information does not endorse drugs, diagnose patients or recommend therapy. [employer] drug information isan informational resource designed to assist licensed healthcare practitioners in caring for their p atients and/or to serve consumers viewing this service as a supplement to, and not a substitute for, the expertise, skill, knowledge and judgment of healthcare practitioners. The absence of a warningfor a given drug or drug combination in no way should be construed to indicate that the drug or drug combination is safe, effective or appropriate for any given patient. [employer] does not assume any responsibility for any aspect of healthcare administered with the aid of information [employer] provides. The information contained herein is not intended to cover all possible uses, directions, precautions, warnings, drug interactions, allergic reactions, or adverse effects. If you have questions about the drugs you are taking, check with your doctor, nurse or pharmacist. Copyright [id number] [facility] [employer]. Version: 17.. Revision Date: 11/23/2022. apixaban (a PIX a ban) Allan What is the most important information I should know about apixaban? Apixaban increases your risk of severe or fatal bleeding, especially if you take certain medicines at the same time (including some aumt-nmk-uemjofk medicines). Tell your doctor about all medicines you have recently used. Call your doctor at once if you have signs of bleeding such as: easy bruising, unusual bleeding, unexpected pain or swelling, feeling very weak or dizzy, bleeding gums, nosebleeds, heavy menstrual bleeding, blood in your urine or stools, coughing up blood or vomit that looks like coffee grounds, orany bleeding that will not stop. Apixaban can cause a very serious blood clot around your spinal cord that can lead to long-term or permanent paralysis. This type of blood clot can occur during a spinal tap or spinal anesthesia (epidural), especially if you have a genetic spinal defect, if you use a spinal catheter, if you've had spinal surgery or repeated spinal taps, or if you use other drugs that can affect blood clotting. Get emergency medical help if you have symptoms of a spinal cord blood clot such as tingling, numbness, or muscle weakness especially in your legs and feet. Do not stop taking apixaban unless your doctor tells you to. Stopping suddenly can increase your risk of blood clot or stroke. What is apixaban? Apixaban is used to lower the risk of stroke caused by a blood clot in people with a heart rhythm disorder called atrial fibrillation. Apixaban is also used after hip or knee replacement surgery to prevent a type of blood clot called deep vein thrombosis (DVT), which can lead to blood clots in the lungs (pulmonary embolism). Apixaban is also used to treat DVT or pulmonary embolism (PE), and to lower your risk of having a repeat DVT or PE. Apixaban may also be used for purposes not listed in this medication guide. What should I discuss with my healthcare provider before taking apixaban? You should not take apixaban if you are allergic to it, or if you have active bleeding from a surgery, injury, or other cause. Apixaban may cause you to bleed more easily, especially if you have a bleeding disorder that is inherited or caused by disease. Tell your doctor if you have an artificial heart valve, or if you have ever had: bleeding problems; antiphospholipid syndrome, especially if you have a triple positive antibody test; or liver or kidney disease. Apixaban can cause a very serious blood clot around your spinal cord if you undergo a spinal tap orreceive spinal anesthesia (epidural). This type of blood clot could cause long-term paralysis, and may be more likely to occur if: you have a spinal catheter in place or if a catheter has been recently removed; you have a history of spinal surgery or repeated spinal taps; you have recently had a spinal tap or epidural anesthesia; you take aspirin or other NSAIDs (nonsteroidal anti-inflammatory drugs)--ibuprofen (Advil, Motrin),naproxen (Aleve), diclofenac, indomethacin, meloxicam, and others; or you are using other medicines to treat or prevent blood clots. Taking apixaban may increase the risk of bleeding while you are or during your delivery. Tell your doctor if you are or plan to become . Do not breastfeed. How should I take apixaban? Follow all directions on your prescription label and read all medication guides or instruction sheets. Your doctor may occasionally change your dose. Use the medicine exactly as directed. You may take apixaban with or without food. If you cannot swallow a tablet whole, crush it and mix with water, apple juice, or applesauce. Swallow the mixture right away without chewing. A crushed tablet mixture may also be given through a nasogastric (NG) feeding tube. Read and carefully follow any Instructions for Use provided with your medicine. Apixaban can make it easier for you to bleed, even from a minor injury. Seek medical attention if you have bleeding that will not stop. Tell your doctor if you have a planned surgery or dental work. You may need to stop taking apixabanfor a short time. Do not stop taking apixaban unless your doctor tells you to. If you stop taking apixaban for any reason, your doctor may prescribe another medicine to prevent blood clots. Store at room temperature away from moisture and heat. What happens if I miss a dose? Take the missed dose on the same day you remember it. Take your next dose at the regular time and stay on your twice-daily schedule. Do not take two doses at one time. Get your prescription refilled before you run out of medicine completely. What happens if I overdose? Seek emergency medical attention or call the Poison Help line at . What should I avoid while taking apixaban? Avoid activities that may increase your risk of bleeding or injury. Use extra care while shaving orbrushing your teeth. What are the possible side effects of apixaban? Get emergency medical help if you have signs of an allergic reaction: hives; chest pain, wheezing, difficult breathing; feeling light-headed; swelling of your face, lips, tongue, or throat. Also seek emergency medical attention if you have symptoms of a spinal blood clot such as tingling,numbness, or muscle weakness especially in your legs and feet. Call your doctor at once if you have: easy bruising, unusual bleeding (nose, mouth, vagina, or rectum), bleeding from wounds or needle injections, any bleeding that will not stop; heavy menstrual bleeding; headache, dizziness, weakness, feeling like you might pass out; urine that looks red, pink, or brown; or black or bloody stools, coughing up blood or vomit that looks like coffee grounds. This is not a complete list of side effects and others may occur. Call your doctor for medical advice about side effects. You may report side effects to FDA at 8-105-LPG-5258. What other drugs will affect apixaban? Sometimes it is not safe to use certain medications at the same time. Some drugs can affect your blood levels of other drugs you take, which may increase side effects or make the medications less effective. Many other drugs (including some pcmo-goe-fuhqwpg medicines) can increase your risk of bleeding or blood clots. 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 This list is not complete and many other drugs may affect apixaban. This includes prescription and fihp-yqs-cezfqdk medicines, vitamins, and herbal products. Not all possible drug interactions are listed here. Where can I get more information? Your pharmacist can provide more information about apixaban. Remember, keep this and all other medicines out of the reach of children, never share your medicines with others, and use this medication only for the indication prescribed. Every effort has been made to ensure that the information provided by [employer]. ('[employer]') is accurate, up-to-date, and complete, but no guarantee is made to that effect. Drug information contained herein may be time sensitive. [employer] information has been compiled for use by healthcare practitioners and consumers in the [place] and therefore [employer] does not warrant that uses outside of the [place] are appropriate, unless specifically indicated otherwise. [employer] drug information does not endorse drugs, diagnose patients or recommend therapy. [employer] drug information isan informational resource designed to assist licensed healthcare practitioners in caring for their p atients and/or to serve consumers viewing this service as a supplement to, and not a substitute for, the expertise, skill, knowledge and judgment of healthcare practitioners. The absence of a warningfor a given drug or drug combination in no way should be construed to indicate that the drug or drug combination is safe, effective or appropriate for any given patient. [employer] does not assume any responsibility for any aspect of healthcare administered with the aid of information [employer] provides. The information contained herein is not intended to cover all possible uses, directions, precautions, warnings, drug interactions, allergic reactions, or adverse effects. If you have questions about the drugs you are taking, check with your doctor, nurse or pharmacist. Copyright 8296-5967 [employer]. Version: 6.01. Revision Date: 12/06/2020. insulin aspart (IN marr thai part) Fiasp, NovoLOG, NovoLOG FlexPen, NovoLOG PenFill What is the most important information I should know about insulin aspart? Never share an injection pen, cartridge, or syringe with another person, even if the needle has been changed. What is insulin aspart? Insulin is a hormone that works by lowering levels of glucose (sugar) in the blood. Insulin aspart is a fast-acting insulin that starts to work about 15 minutes after injection, peaks in about 1 hour, and keeps working for 2 to 4 hours. Insulin aspart is used to improve blood sugar control in adults and children with diabetes mellitus. This medicine is sometimes used together with a long- acting or intermediate-acting insulin. Insulin aspart may also be used for purposes not listed in this medication guide. What should I discuss with my healthcare provider before using insulin aspart? You should not use insulin aspart if you are allergic to it, or if you are having an episode of hypoglycemia (low blood sugar). Insulin aspart is not approved for use by anyone younger than 2 years old, and should not be used to treat type 2 diabetes in a child of any age. Fiasp is for use only in adults. Tell your doctor if you have ever had: liver or kidney disease; or low levels of potassium in your blood (hypokalemia). Tell your doctor if you also take pioglitazone or rosiglitazone (sometimes contained in combinations with glimepiride or metformin). Taking certain oral diabetes medicines while you are using insulinmay increase your risk of serious heart problems. Tell your doctor if you are or . Follow your doctor's instructions about using insulin if you are or you become . Controlling diabetes is very important during , and having high blood sugar may cause complications in both the mother and the baby. How should I use insulin aspart? Follow all directions on your prescription label and read all medication guides or instruction sheets. Use the medicine exactly as directed. Insulin aspart is injected under the skin, or as an infusion into a vein. A healthcare provider will give your first dose and may teach you how to properly use the medication by yourself. Your healthcare provider will show you where on your body to inject insulin aspart. Use a differentplace each time you give an injection. Do not inject into the same place two times in a row. Do not inject this medicine into skin that is damaged, tender, bruised, pitted, thickened, scaly, or has a scar or hard lump. After using Novolog, you should eat a meal within 5 to 10 minutes. Fiasp should be given at the start of a meal or within 20 minutes after starting a meal. Read and carefully follow any Instructions for Use provided with your medicine. Ask your doctor or pharmacist if you do not understand these instructions. Prepare an injection only when you are ready to give it. This medicine should be clear and colorless. Do not use the medicine if it has changed colors or has particles in it. Call your pharmacist fornew medicine. If you use an injection pen, use only the pen provided with your medicine. If you use this medicinewith an insulin pump, do not mix or dilute insulin aspart with any other insulin. Change the medicine in the reservoir at least every 6 days. Never share an injection pen, cartridge, or syringe with another person, even if the needle has been changed. Sharing these devices can allow infections or disease to pass from one person to another. You may have low blood sugar (hypoglycemia) and feel very hungry, dizzy, irritable, confused, anxious, or shaky. To quickly treat hypoglycemia, eat or drink a fast-acting source of sugar (fruit juice, hard candy, crackers, raisins, or non-diet soda). Your doctor may prescribe a glucagon injection kit in case you have severe hypoglycemia. Be sure your family or close friends know how to give you this injection in an emergency. Also watch for signs of high blood sugar (hyperglycemia) such as increased thirst or urination. Blood sugar levels can be affected by stress, illness, surgery, exercise, alcohol use, or skipping meals. Ask your doctor before changing your dose or medication schedule. Insulin aspart is only part of a treatment program that may also include diet, exercise, weight control, blood sugar testing, and special medical care. Follow your doctor's instructions very closely. Keep this medicine in its original container protected from heat and light. Do not draw insulin from a vial into a syringe until you are ready to give an injection. Do not freeze insulin or store it near the cooling element in a refrigerator. Throw away any insulin that has been frozen. Storing unopened (not in use) insulin aspart: Refrigerate and use until expiration date; or Store at room temperature and use within 28 days. Storing opened (in use) insulin aspart: Store the vial in a refrigerator or at room temperature and use within 28 days. Store the cartridge or injection pen at room temperature (do not refrigerate) and use within 28 days. Do not store the injection pen with a needle attached. Use a needle and syringe only once and then place them in a puncture-proof 'sharps' container. Follow state or local laws about how to dispose of this container. Keep it out of the reach of children and pets. In case of emergency, wear or carry medical identification to let others know you have diabetes. What happens if I miss a dose? Since insulin aspart is used before meals, you may not be on a timed dosing schedule. Whenever you use insulin aspart, be sure to eat a meal within 5 to 10 minutes. Do not use extra insulin aspart tomake up a missed dose. Keep insulin on hand at all times. Get your prescription refilled before you run out of medicine completely. What happens if I overdose? Seek emergency medical attention or call the Poison Help line at . Insulin overdose can cause life-threatening hypoglycemia. Symptoms include drowsiness, confusion, blurred vision, numbness or tingling in your mouth, trouble speaking, muscle weakness, clumsy or jerky movements, seizure (convulsions), or loss of consciousness. What should I avoid while using insulin aspart? Insulin can cause low blood sugar. Avoid driving or operating machinery until you know how this medicine will affect you. Avoid medication errors by always checking the medicine label before injecting your insulin. Avoid drinking alcohol or using medicines that contain alcohol. Alcohol can cause low blood sugar and may interfere with your diabetes treatment. What are the possible side effects of insulin aspart? Get emergency medical help if you have signs of insulin allergy: redness or swelling where an injection was given, itchy skin rash over the entire body, trouble breathing, fast heartbeats, feeling like you might pass out, or swelling in your tongue or throat. Call your doctor at once if you have: heart problems--swelling, rapid weight gain, feeling short of breath; or low potassium--leg cramps, constipation, irregular heartbeats, fluttering in your chest, increased thirst or urination, numbness or tingling, muscle weakness or limp feeling. Common side effects may include: low blood sugar; weight gain; low potassium; swelling in your hands and feet; skin rash, itching, redness, or swelling; or thickening or hollowing of the skin where you injected the medicine. This is not a complete list of side effects and others may occur. Call your doctor for medical advice about side effects. You may report side effects to FDA at 0-624-YVU-8376. What other drugs will affect insulin aspart? Insulin may not work as well when you use other medicines at the same time. Some drugs can also cause you to have fewer symptoms of hypoglycemia, making it harder to tell when your blood sugar is low. This includes prescription and dqjh-wml-chvvcle medicines, vitamins, and herbal products. Not all possible interactions are listed here. Tell your doctor about all medicines you start or stop using. Where can I get more information? Your pharmacist can provide more information about insulin aspart. Remember, keep this and all other medicines out of the reach of children, never share your medicines with others, and use this medication only for the indication prescribed. Every effort has been made to ensure that the information provided by [employer]. ('[employer]') is accurate, up-to-date, and complete, but no guarantee is made to that effect. Drug information contained herein may be time sensitive. [employer] information has been compiled for use by healthcare practitioners and consumers in the [place] and therefore [employer] does not warrant that uses outside of the [place] are appropriate, unless specifically indicated otherwise. [employer] drug information does not endorse drugs, diagnose patients or recommend therapy. [employer] drug information isan informational resource designed to assist licensed healthcare practitioners in caring for their p atients and/or to serve consumers viewing this service as a supplement to, and not a substitute for, the expertise, skill, knowledge and judgment of healthcare practitioners. The absence of a warningfor a given drug or drug combination in no way should be construed to indicate that the drug or drug combination is safe, effective or appropriate for any given patient. [employer] does not assume any responsibility for any aspect of healthcare administered with the aid of information [employer] provides. The information contained herein is not intended to cover all possible uses, directions, precautions, warnings, drug interactions, allergic reactions, or adverse effects. If you have questions about the drugs you are taking, check with your doctor, nurse or pharmacist. Copyright 4706-7564 [employer]. Version: 8.02. Revision Date: 07/20/2019. metformin (met FOR min) Glumetza, MetFORMIN (Eqv-Fortamet), MetFORMIN (Eqv-Glucophage XR), MetFORMIN (Eqv-Glumetza), Riomet What is the most important information I should know about metformin? You should not use this medicine if you have severe kidney disease, metabolic acidosis, or diabeticketoacidosis (call your doctor for treatment). If you need to have any type of x-ray or CT scan using a dye that is injected into your veins, you may need to temporarily stop taking metformin. You may develop lactic acidosis, a dangerous build-up of lactic acid in your blood. Call your doctor or get emergency medical help if you have unusual muscle pain, trouble breathing, stomach pain (more content not included)... [facility]04-15-2024 Note* Exam Date Time Procedure Performing Provider Status 07/29/23 3:15 PM Echocardiogram, Adult - CV Auth (Verified) [facility] 04-14-2024 Note Date of Service 07/28/2023 Chief Complaint c/o weakness s/p vomiting x 3 days History of Present Illness 73-year-old male with past medical history significant for developmental delay, alcohol syndrome, depression, anxiety, stress incontinence, frontotemporal lobe dementia, meningioma (8 mm)- Follows with Dr. Fuller, sensorineural hearing loss, tobacco use, newly diagnosed type 2 diabetes mellitus. Patient presented to [facility] emergency department on 07/27/2023 with a 3-day history of nausea, vomiting, weakness, incontinence of bowel and bladder. Patient is a poor historian due to developmental delay. 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 In the emergency department hewas afebrile and hemodynamically stable with adequate oxygenation on room air. Glucose was 729 on arrival. pH 7.21. White blood cell count 29.2 with no bandemia. Urinalysis was positive for glucose. Glucose greater than 750, sodium 125, potassium 5.6, gap 18, creatinine 3.24. Alk phos 137, AST/ALT 48 and 64 respectively. GFR of 19. CMP from 05/2023 shows creatinine of 0.92 with a GFR of 86. Glucose was 106. Hemoglobin A1c was 6% 10/2021. Troponin was 43. CT abdomen and pelvis without contrast shows grade 3 hydroureteronephrosis with distended urinary bladder concerning for obstructive uropathy without visible calculus. Patient was straight cathed for 1400 mL. EKG showed normal sinus rhythm. He was subsequently admitted for DKA. Patient had been tachycardic however early this morning he went into atrial fibrillation with ratesin the 1 teens. He was given a dose of diltiazem 10 mg IV push. pH improved to 7.3 at 0200. This morning white blood cell count is 26.9, creatinine improved to 1.70 with a GFR of 40. He was somewhat borderline hypotensive after receiving diltiazem. Review of Systems See HPI for specific ROS. All other systems reviewed and negative. Physical Exam Vitals and Measurements T: 36.5 C (Axillary) TMIN: 36.4 C (Axillary) TMAX: 37.1 C (Oral) HR: 117(Monitored) RR: 18 BP: 111/74 SpO2: 95% HT: 182.9 cm WT: 70.5 kg BMI: 21.07 Weight Dosing Weight: 70.5 kg (07/28/23) Dosing Weight: 70.5 kg (07/27/23) GEN: Appears chronically ill EYES: No conjunctival erythema, drainage. EOMI EARS: Hearing grossly intact. NOSE: No nasal discharge. THROAT: Oral cavity and pharynx pink and moist. CHEST: Normal S1 and S2. Rhythm is regular. Clear to auscultation, without rales, rhonchi, wheezing. ABD: Positive bowel sounds x 4 quads. Soft, nondistended, nontender. EXT: No significant deformity or joint abnormality. No edema. Peripheral pulses intact. NEURO: Sensation grossly intact SKIN: Skin color normal PSYCH: The mental examination revealed the patient was drowsy. long-term staff states this is baseline for him. Lab Results 07/27 06:41 WBC: 26.9 H Hgb: 14.4 Hct: 40.5 L Platelet: 213 Glucose Level: 78 L Sodium Level: 144 Potassium Level: 3.8 BUN: 54 H Creatinine Lvl (s): 1.70 H 07/27 02:00 Glucose Level: 461 C Sodium Level: 140 Potassium Level: 4.0 BUN: 65 H Creatinine Lvl (s): 2.48 H 07/26 22:15 Glucose Level: 729 C Sodium Level: 132 L Potassium Level: 4.0 BUN: 64 H Creatinine Lvl (s): 2.85 H 07/26 20:23 WBC: 29.2 H Hgb: 15.2 Hct: 45.8 Platelet: 273 Glucose Level: >750 C Sodium Level: 125 L Potassium Level: 5.6 H BUN: 68 H Creatinine Lvl (s): 3.24 H Imaging Results and Diagnostics XR Chest 1 View Result Date: July 28, 2023 Verified By: HAKAN YOON, MURRAY Mosley CLINICAL STATEMENT: IMPRESSION: Emphysema. No acute findings. CT Abdomen/Pelvis w/o Contrast Result Date: July 27, 2023 Verified By: JEFFERSON OCONNOR DO CLINICAL STATEMENT: IMPRESSION: Grade 3 hydroureteronephrosis with a distended urinary bladder concerning forobstructive uropathy without visible calculus, differentials includingbladder outlet obstruction and urinary retention. Other incidental findings as above. I have personally reviewed the images of this examination and edited theresident's findings and interpretation. Assessment/Plan 1. Hyperosmolar hyperglycemic state (HHS) 2. Type 2 diabetes mellitus 3. Atrial fibrillation 4. COVID-19 5. KEN (acute kidney injury) 6. Developmental delay Hyperosmolar hyperglycemic state patient is newly diagnosed type II diabetic. Leukocytosis secondary to HHS. Labs in 2021 show an A1c of 6.0. It does not appear he has had any labs checked since then. A1c is 10.2. Gap closed at 0200. Patient will be started on Lantus 20 units nightly as he is insulin na ve. Will start metformin 500 mg daily. Glucose goal 180 or less and avoid hypoglycemia. Sliding scale before meals and at bedtime. ADA diet. Atrial fibrillation patient went into atrial fibrillation and received 1 dose of diltiazem 10 mg IV. He converted to sinus tachycardia. His rate started to climb again with multiple PVCs. Metoprolol 12.5 mg was started with some improvement in heart rate. He was going in and out of A-fib/flutter. Will check TSH and free T4. Obtain echocardiogram. Has bled score is 1. Atrial fibrillation may be related to acute illness. Will hold off on anticoagulation at this time. Stress test done 12/2020 with no arrhythmias, ischemia. LVEF 65%. No other cardiac disease history. COVID 19 Patient has no respiratory issues or oxygen requirements. He was having diarrhea. KEN creatinine upon arrival was 3.24. Improved to 1.7 today. Patient was given additional 2 L of fluid due to KEN and hypotension. DVT prophylaxis: Lovenox Code Status: Full code Plan of care discussed with patient. All questions answered. Patient verbalizes understanding is agreeable to plan of care. This dictation was performed using voice recognition software and may include grammatical and/or spelling errors. Problem List/Past Medical History Ongoing No qualifying data Historical No qualifying data Procedure/Surgical History No qualifying data available. Medications Home Medications (7) Active busPIRone 10 mg oral tablet 10 mg = 1 tab(s), Oral, TID ciprofloxacin 500 mg oral tablet 500 mg = 1 tab(s), Oral, q12h escitalopram 20 mg oral tablet 20 mg = 1 tab(s), Oral, qDay gabapentin 100 mg oral capsule 100 mg = 1 cap(s), Oral, BID ondansetron 4 mg oral tablet, disintegrating 4 mg = 1 tab(s), PRN, Oral, q6h oxybutynin 10 mg/24 hr oral tablet, extended release 10 mg = 1 tab(s), Oral, qDay QUEtiapine 50 mg oral tablet 100 mg = 2 tab(s), Oral, BID Allergies NKA Social History Alcohol Use: Never., 04/03/2019 Tobacco Nicotine Use: 10 or more cigarettes (1/2 pack or more)/day in last 30 days. Type: Cigarettes. Previous treatment: None. Ready to change: No., 04/03/2019 Immunizations SARS-CoV-2 (COVID-19) mRNA-1273 vaccine: 0 unknown unit (03/20/21) SARS-CoV-2 (COVID-19) mRNA-1273 vaccine: 0.5 unknown unit (08/04/20) SARS-CoV-2 (COVID-19) mRNA-1273 vaccine: 0.5 unknown unit (07/07/20) Code Status Code Status - Ordered -- 07/27/23 23:43:00 EDT, Full Code, Constant Order Digitally Signed by AMY LERNER on 07/28/2023 03:10 PM [facility]04-14-2024 Evaluation + Plan noteExtracted from: Title:History and Physical Author:AMY LERNER Date:07/28/23 1. Hyperosmolar hyperglycemi c state (HHS) 2. Type 2 diabetes mellitus 3. Atrial fibrillation 4. COVID-19 5. KEN (acute kidney injury) 6. Developmental delay Hyperosmolar hyperglycemic state patient is newly diagnosed type II diabetic. Leukocytosis secondary to HHS. Labs in 2021 show an A1c of 6.0. It does not appear he has had any labs checked since then. A1c is 10.2. Gap closed at 0200. Patient will be started on Lantus 20 units nightly as he is insulin na ve. Will start metformin 500 mg daily. Glucose goal 180 or less and avoid hypoglycemia. Sliding scale before meals and at bedtime. ADA diet. Atrial fibrillation patient went into atrial fibrillation and received 1 dose of diltiazem 10 mg IV. He converted to sinus tachycardia. His rate started to climb again with multiple PVCs. Metoprolol 12.5 mg was started with some improvement in heart rate. He was going in and out of A-fib/flutter. Will check TSH and free T4. Obtain echocardiogram. Has bled score is 1. Atrial fibrillation may be related to acute illness. Will hold off on anticoagulation at this time. Stress test done 12/2020 with no arrhythmias, ischemia. LVEF 65%. No other cardiac disease history. COVID 19 Patient has no respiratory issues or oxygen requirements. He was having diarrhea. KEN creatinine upon arrival was 3.24. Improved to 1.7 today. Patient was given additional 2 L of fluid due to KEN and hypotension. DVT prophylaxis: Lovenox Code Status: Full code Plan of care discussed with patient. All questions answered. Patient verbalizes understanding is agreeable to plan of care. This dictation was performed using voice recognition software and may include grammatical and/or spelling errors. [facility] 04-14-2024 Note ORIGINAL EXAMINATION: ONE XRAY VIEW OF THE CHEST 07/28/2023 6:35 am COMPARISON: Chest x-ray on 04/03/2019 HISTORY: ORDERING SYSTEM PROVIDED HISTORY: Reason for Exam: leukocytosis FINDINGS: The heart size is normal. Lungs have emphysematous architecture. There is no acute lung infiltrate or edema. No pneumothorax or pleural fluid is present. There is no acute skeletal abnormality. IMPRESSION: Emphysema. No acute findings. Interpreted by: Murray Slater MD Preliminary Report By: Murray Slater MD Electronically signed By Murray Slater MD Dictated Date: 07/28/2023 6:43:07 AM Prelim Date: 07/28/2023 6:44:20 AM Sign Date: 07/28/2023 6:44:20 AM Ordering Provider: [place] [id number] Note WARNING: DATA QUALITY MAY AFFECT INTERPRETATION ATRIAL FIBRILLATION WITH RAPID VENTRICULAR RESPONSE WITH ABERRANT CONDUCTION OR VENTRICULAR PREMATURE COMPLEXES Borderline left axis deviation Abnormal R-wave progression, early transition Abnormal T, consider ischemia, lateral leads Electronic Signature: DERICK AZAR MD 07/29/2023 09:12:24[facility] 04-13-2024 Note ORIGINAL EXAMINATION: CT OF THE ABDOMEN AND PELVIS WITHOUT CONTRAST07/27/2023 10:59 pm COMPARISON: None HISTORY: ORDERING SYSTEM PROVIDED HISTORY: Reason for Exam: Abdominal pain. Weakness and vomiting x3 days. FINDINGS: Left greater than right basilar atelectasis and/or scarring. Paraseptal emphysematous changes. There is no visible pleural or pericardial effusion. The heart is normal in size. The liver, spleen, adrenal glands, and pancreas are within normal limits. The gallbladder is not visualized and may be contracted or surgically absent. The kidneys are grossly symmetric in size. Nonspecific perinephric fat stranding. Bilateral renal cysts are visualized, largest on the right measures up to 6.6 cm, largest on the left measures up to 4.3 cm. There is a hyperdense left renal cortical cyst measuring 1.2 cm (series 2, image 43), findings may represent a hemorrhagic or proteinaceous cyst. Other subcentimeter renal cortical hypodensities are too small to characterize but may represent cysts. Grade 3 hydroureteronephrosis noted bilaterally, with a distended urinary bladder, suggestive of urinary retention versus outlet obstruction.. No urinary calculus visualized. The prostate is mildly enlarged. Dystrophic calcifications are noted within the prostate. The large and small bowel demonstrate no obstruction. The appendix is not visualized. There is no pericecal inflammation. Diverticula are noted within the descending colon without evidence of diverticulitis. No free intraperitoneal fluid or gas is identified. The aorta is normal in caliber. No abdominopelvic lymphadenopathy. No acute fracture. Sclerotic appearance of the lateral right 6th rib. Mild anterolisthesis of L4 on L5 likely on a degenerative basis. Mild degenerative changes are present throughout the spine. No acute soft tissue abnormality. Small left fat containing inguinal hernia. There is a small right inguinal hernia containing fat and fluid. Metallic fragment seen in the proximal left anterior thigh musculature, correlate with prior trauma/surgery. IMPRESSION: Grade 3 hydroureteronephrosis with a distended urinary bladder concerning for obstructive uropathy without visible calculus, differentials including bladder outlet obstruction and urinary retention. Other incidental findings as above. I have personally reviewed the images of this examination and edited the resident's findings and interpretation. Interpreted by: Jefferson Oconnor Preliminary Report By: Chau Kiran Electronically signed By Jefferson Oconnor Dictated Date: 07/27/2023 11:04:39 PM Prelim Date: 07/27/2023 11:23:11 PM Sign Date: 07/27/2023 11:34:46 PM Ordering Provider: [facility]04-13-2024 Note Sinus rhythm Left axis deviation Borderline T abnormalities, lateral leads Baseline wander in lead(s) I,III,aVL,V4,V5 Electronic Signature: YULIET TREVINO Lauryn DO 07/27/2023 20:21:27[facility] 11-22-2022 Instructions* Patient Instructions* Garth Moreno MD - 03/06/2022 10:09 AM [...] try to touch base with provider at half-way to see what else we can do. [facility] History of Present illness Narrative* Garth Moreno MD - 03/06/2022 9:33 AM EST TEACHING PHYSICIAN NOTE OF PERSONAL INVOLVEMENT IN [...] SYED (generalized anxiety disorder) Here with Josefina, build manager at the half-way - has only known him few months. [...] but often uses his diaper. Head at half-way = Fany Lund [phone]. Pt's psychiatrist = Dr Po Constantino [phone]. Neuropsych = Kenji Arevalo We reviewed medlist from facility, and updated and reconciled all current meds in epic. I would need to find out more [...] try to touch base with provider at half-way to see what else we can do. Advised to follow up as needed. I called Dr Maria [phone], was on hold >10min, spoke w/ someone who couldn't find this pt in system, gave them my number to call me back in case I could be of further help. Signature: Garth Moreno MD Date: 02/20/2018 Time: 9:40 AM * Garth Moreno MD - 03/06/2022 8:30 AM EST Renny Russo is a 71 year old [...] imaging at an earlier time. HPI: Per Guardian/group art supervisor (been with group since August) Since end november: - Patient is sundowning in PM. Staying up later and sleeping in later. Still getting adequate restful sleep - Patient is living in the past and not the present in terms of recall. Will talk about past eventsas if it were the present. - Needs [...] been violent with any people though. Always beenan issue but has been getting worse. - [...] as appropriate. Please see relevant sections in [employer] EHR for details Current living environment: half-way Review of Systems: Is dependent or requires assistance in the following BADL: none but needs reminders Ambulatory c? cane / walker: None at half-way but uses wheelchair when traveling long distances [...] movements: nl b/l Rhomberg: nl Drift: none [facility] : IMPRESSION: 1. Stable 10 mm partly [...] sensorineural hearing loss, who presents with his group art supervisor for dementia evaluation per recommendations from Psychiatry. His caretakers have noticed increases in memory deficits,confusion, and agitation, as well as hallucinations. On exam, patient is only orientate to self. Hewas unable to perform cognitive testing due to intellectual delay. Other than a wide-based gait with short steppage, no abnormalities were found. Oxybutynin does not appear to eliminate urinary incont inence and may be contributing to cognitive impairment. Current Donepezil dose (5 mg) has room for increase. Escitalopram 20 mg is not recommended for geriatric patients and should be lowered to minimize side effects. Due to lack of records, more specific recommendations cannot be made without consulting Psychiatry and half-way director first. Plan: - Will reach out to Psychiatrist and/or half-way director for medical records before making additional recommendations - Please discuss with PCP the following medication changes - Discontinue Oxybutynin - Increase Donepezil to 10 mg - Decrease Escitalopram to 10 mg Total time spent was 70 minutes, including chart review, time with patient, counseling and care coordination, and assessment/plan formulation and documentation Garth Moreno MD documented in this encounterBer[facility]12-[facility]-2021 NoteHNO ID: [id number] Author: Bella Thurman RN Service: ? Author Type: Registered Nurse Type: Nursing Progress Note Filed: 03/17/2021 1:09 PM Note Text: Discussed IV infiltration and f/u with Dr. Khan AND caregiver, oked f/u. [id number] History of Past illness Narrative* Problem Noted Date Resolved Date Entropion of left lower eyelid 03/17/2021 1 05/18/2020 documented as of this encounter (statuses as of 03/06/2022) [facility] No data available for this section [facility] Evaluation + Plan note Future Appointments Appointment Date:09/12/2023 09:00:00 AM Scheduled Provider: Location:[facility] Appointment Type:CV CONTRACTS DIRECTOR Appointment Date:11/12/2023 09:15:00 AM Scheduled Provider:KASSANDRA MCGOVERN MD Location:[facility] Appointment Type:ENDO CONTRACTS DIRECTOR [facility] Evaluation + Plan note Future Appointments Appointment Date:11/12/2023 09:15:00 AM Scheduled Provider:KASSANDRA MCGOVERN MD Location:[facility] Appointment Type:ENDO CONTRACTS DIRECTOR [facility] Evaluation + Plan note Future Appointments Appointment Date:12/17/2023 11:45:00 AM Scheduled Provider:KASSANDRA MCGOVERN MD Location:[facility] Appointment Type:ENDO OV Diagnostic Tests Pending * Antipancreatic Islet Cells 11/15/23 * SYED-65 Autoantibody 11/15/23 * Gliadin Antibody 11/15/23 * Tissue Transglutaminase Ab (IGA) 11/15/23 [facility] Evaluation + Plan note Future Appointments Appointment Date:10/06/2024 10:00:00 AM Scheduled Provider:KASSANDRA MCGOVERN MD Location:[facility] Appointment Type:ENDO OV Future Scheduled Tests Laboratory* Thyroid Stimulating Hormone 09/17/24 * Thyroid Stimulating Hormone 03/17/24 * A1C Hemoglobin 09/17/24 * A1C Hemoglobin 03/17/24 * Complete Blood Count 03/17/24 * Albumin/Creatinine Ratio, Random Urine 09/17/24 * Vitamin D Level 09/17/24 * Complete Metabolic Panel 09/17/24 * Complete Metabolic Panel 03/17/24 [facility] Evaluation + Plan note Future Appointments Appointment Date:10/22/2024 10:00:00 AM Scheduled Provider:KASSANDRA MCGOVERN MD Location:[facility] Appointment Type:ENDO OV Diagnostic Tests Pending * Blood Culture (bacterial) 04/20/24 * Blood Culture (bacterial) 04/20/24 Future Scheduled Tests Laboratory* Thyroid Stimulating Hormone 09/17/24 * Thyroid Stimulating Hormone 03/17/24 * A1C Hemoglobin 09/17/24 * A1C Hemoglobin 03/17/24 * Complete Blood Count 03/17/24 * Albumin/Creatinine Ratio, Random Urine 09/17/24 * Vitamin D Level 09/17/24 * Complete Metabolic Panel 09/17/24 * Complete Metabolic Panel 03/17/24 [facility] Evaluation + Plan note Future Appointments Appointment Date:10/22/2024 10:00:00 AM Scheduled Provider:KASSANDRA MCGOVERN MD Location:[facility] Appointment Type:ENDO OV Future Scheduled Tests Laboratory* Thyroid Stimulating Hormone 09/17/24 * Thyroid Stimulating Hormone 03/17/24 * A1C Hemoglobin 09/17/24 * A1C Hemoglobin 03/17/24 * Complete Blood Count 03/17/24 * Albumin/Creatinine Ratio, Random Urine 09/17/24 * Vitamin D Level 09/17/24 * Complete Metabolic Panel 09/17/24 * Complete Metabolic Panel 03/17/24 [facility] Evaluation + Plan note Future Appointments Appointment Date:10/22/2024 10:00:00 AM Scheduled Provider:KASSANDRA MCGOVERN MD Location:[facility] Appointment Type:ENDO OV Diagnostic Tests Pending * QFT-TB Plus (Client Incubated) 08/05/24 * Hep B Core Ab, Tot 08/05/24 Future Scheduled Tests Laboratory* Thyroid Stimulating Hormone 09/17/24 * Thyroid Stimulating Hormone 03/17/24 * A1C Hemoglobin 09/17/24 * A1C Hemoglobin 03/17/24 * Complete Blood Count 03/17/24 * Albumin/Creatinine Ratio, Random Urine 09/17/24 * Vitamin D Level 09/17/24 * Complete Metabolic Panel 09/17/24 * Complete Metabolic Panel 03/17/24 [facility] Evaluation noteNo assessment information available [facility] Work Phone: Evaluation note* 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 Development delay Lack of normal physiological development, unspecified Unspecified intellectual disabilities Mixed 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) Major depressive disorder, remission status unspecified, unspecified whether recurrent SYED (generalized anxiety disorder) Generalized anxiety disorder documented in this encounter [facility]* Diagnosis Umbilical discharge- Primary Other symptoms involving abdomen and pelvis documented in this encounter [facility] note* Diagnosis Acute conjunctivitis of right eye, unspecified acute conjunctivitis type- Primary [facility] No data available for this section [facility] Progress note No data available for this section [facility] Reason for referral (narrative)No reason for referral information availableWACMC Healthcare [facility] Work Phone: Summary Purpose Family History No Family History Records FoundNo Family History Records FoundNo Family History Records Found No data available for this section No data available for this section No data available for this section No data available for this section No data available for this section No Family History Records FoundNo Family History Records Found No data available for this section No data available for this section No data available for this section No Family History Records Found No data available for this section No Family History Records Found Advance Directives No Advanced Directives Records Found Advance Directive Response Recorded Date/ Time Advance Directives Yes November 19, 1:19pm Living Will Yes December 02 8 10:41am Power of Plastics And Composites Inspector Yes December 02, 018 10:41am Advance Directive Response Recorded Date/ Time Advance Directives Yes November 19 12:19pm Living Will Yes December 02 8 9:41am Power of Plastics And Composites Inspector Yes December 02, 018 9:41am Advance Directive Response Recorded Date/ Time Advance Directives Yes November 19, 1:19pm Chief Complaint and Reason for Visit Chief Complaint TOBACCO USE Chief Complaint TOBACCO USE MENINGIOMA, BEHAVIOR CHANGE Chief Complaint NICOTINE ABUSE Chief Complaint Admit Date R EYE CONCERN May 26, 2024 3:05pm RED R EYE July 13, 2024 12: 42pm Reason for Visit Admit Date Cellulitis of right eyelid May 3:05pm Conjunctivitis, right eye May 26, 2024 3:05pm Additional Source Comments (unrecognized sect ion and content) No Status Records FoundNo Status Records FoundNo Status Records FoundNo Status Records FoundNo Status Records FoundNo Status Records FoundNo Status Records Found INFORMATION SOURCE (unrecogn ized section and content) DATE CREATED AUTHOR 12/22/2019 [facility] DATE CREATED AUTHOR AUTHOR'S ORGANIZ ATION 12/22/2019 [facility] DATE CREATED AUTHOR AUTHOR'S ORGANIZ ATION 03/18/2021 [facility] DATE CREATED AUTHOR AUTHOR'S ORGANIZ ATION 11/20/2023 [facility] ([place]) DATE CREATED AUTHOR AUTHOR'S ORGANIZ ATION 02/08/2024 [facility] DATE CREATED AUTHOR AUTHOR'S ORGANIZ ATION 08/09/2024 [facility] DATE CREATED AUTHOR AUTHOR'S ORGANIZ ATION 09/01/2024 [facility] Care Team (unrecognized sect ion and content) Care Team Personnel Name: GREGORIO CAAMRA MD Member Role: Primary Care Physician Address: Address: [facility] [place] [address]- Care Team Related Persons Name: FANY LUND Address: [address] [place] [address] Goals (unrecognized section and content) Goals may be documented in a n alternate section Source Comments (unrecognize d section and content) In the event this informatio n is protected by the Federal Confidentiality of Alcohol and Drug Abuse Patient Records regulations: The Federal rules restrict any use of the information to criminally investigate or prosecute any alcohol or drug abuse patient.[facility] HospitalIn the event this information is protected by the Federal Confidentiality of Alcohol and Drug Abuse Patient Records regulations: The Federal rules restrict any use of the information to criminally investigate or prosecute any alcohol or drug abuse patient.[facility] HospitalIn the event this information is protected by the Federal Confidentiality of Alcohol and Drug Abuse Patient Records regulations: The Federal rules restrict any use of the information to criminally investigate or prosecute any alcohol or drug abuse patient.[facility] HospitalIn the event this information is protected by the Federal Confidentiality of Alcohol and Drug Abuse Patient Records regulations: The Federal rules restrict any use of the information to criminally investigate or prosecute any alcohol or drug abuse patient.[facility] Reason for Visit (unrecogniz ed section and content) Reason Comments Geriatric Evaluation Reason Comments Abdominal Pain Naval pain x1 day Reason Comments Results MSSA Need for antibiotic Reason Comments Eye Problem JENNA eye redness Care Teams (unrecognized sec tion and content) Technical Applications Scientist Relationship Specialty Start Date End Date Kim Hutchinson [address] [place], [place] [phone] PCP - General Family Medicine 03/17/21 Team Status: Active Member Role Status Dates Dr. Daniel Camara MD Family Provider Active Dr. Kim Hutchinson MD Primary Care Provider Active Team Status: Inactive Member Role Status Dates Dr. Kim Hutchinson MD Primary Care Prov ider, Attending Provider, Referring Provider Active Team Status: Inactive Member Role Status Dates Dr. Kim Hutchinson MD Primary Care Provider, Attendin g Provider Active Technical Applications Scientist Relationship Specialty Start Date End Date Kim Hutchinson MD [address] [place] [address] PCP - General Family Medicine 03/17/21 Technical Applications Scientist Relationship Specialty Start Date End Date Kim Hutchinson MD [address] [place] [address] PCP - General Family Medicine 03/17/21 Team Status: Inactive Member Role Status Dates Dr. Kim Hutchinson MD Primary Care Provider Active Start: May 26, 2024 End: May 26, 2024 Dr. Kim Hutchinson MD Referring Provider Active Start: May 26, 2024 End: May 26, 2024 Garth Hendrix PA, PA Attending Provider Active Start: May 26, 2024 End: May 26, 2024 Team Status: Inactive Member Role Status Dates Dr. Kim Hutchinson MD Primary Care Provider Active Start: July 13, 2024 End: July 13, 2024 Dr. Kim Hutchinson MD Referring Provider Active Start: July 13, 2024 End: July 13, 2024 Garth FRANCIS, PA Attending Provider Active Start: July 13, 2024 End: July 13, 2024 Team Status: Inactive Member Role Status Dates Dr. Kim Hutchinson MD Primary Care Provider Active Start: August 27, 2024 End: August 27, 2024 Melissa Campbell Attending Provider Active Start : August 27, 2024 End: August 27, 2024 Melissa Campbell Referring Provider Active Start : August 27, 2024 End: August 27, 2024 FOR RECORDS PERTAINING TO PATIENTS WHO ARE [...] BE BASED ON THE PRIMARY CLINICAL RECORDS. [facility] [employer] [facility]. provides no warranty or guarantee of the accuracy or completeness of information in this document.
== END | disposition home or self-care (01) ==
LOC: LABSPEC 12:30
PROVIDERS: PCP Family Medicine; Referring Provider Dermatology; Visit Provider Dermatology
DX: L10.0 Pemphigus vulgaris (principal); Z79.899 Other long term (current) drug therapy
CPT/HCPCS: 80053; 85025

== ENCOUNTER → 2024-10-30 | Outpatient (CLI) | payer MEDICARE, MEDICAID, SELFPAY ==
[2024-10-30 12:14] LABS: Hematocrit 42.5 % (40-54); Hemoglobin 14.2 g/dL (13.0-16.5); Immature Granulocytes Count 0.040 X10^3/uL (0.0-0.0); Mean Corp Hgb Conc 33.4 g/dL (32-36); Mean Corpuscular Volume 95.7 fL (80-94); Mean Platelet Vol. 9.4 fl (6.2-12.0); NRBC Flagged by Analyzer 0 % (0-5); Platelet Count 265 K/mm3 (150-450); RBC Distribution Width CV 13.4 % (11.6-14.6); RBC Distribution Width SD 47.2 fl (35.1-43.9); Red Blood Count 4.44 M/mm3 (4.6-6.2); White Blood Count 11.9 K/mm3 (4.4-11.0)
[2024-10-30 12:54] LABS: AST(SGOT) 14 U/L (<=37); Alanine Aminotransfer ALT/SGPT 11 U/L (<=46); Albumin, Serum 3.9 g/dL (3.4-4.8); Alkaline Phosphatase 85 U/L (40-129); Anion Gap 12 (5-15); BUN 17 mg/dL (4-19); BUN/Creat Ratio 18.0 RATIO (10-20); Calcium,Total 9.2 mg/dL (7.6-11.0); Carbon Dioxide 24.4 mmol/L (21.0-32.0); Chloride 105 mmol/L (98-108); Globulin 3.2 g/dL (2.2-4.2); Glucose 128 mg/dL (70-99); Potassium 4.3 mmol/L (3.3-5.1)
== END | disposition home or self-care (01) ==
LOC: MTLAB 11:00
PROVIDERS: PCP Family Medicine; Referring Provider Dermatology; Visit Provider Dermatology
DX: L10.0 Pemphigus vulgaris (principal)
CPT/HCPCS: 36415; 80053; 85025

== ENCOUNTER → 2025-01-29 | Outpatient (CLI) | payer MEDICARE, MEDICAID, SELFPAY ==
--- OUTSIDE RECORDS SUMMARY | 2025-01-29 12:57 | XMS RPT_ITS | CCD ---
Author Organization [facility] Care Team Providers Care Environmental Protection Specialist Name Role Phone SOFI YOON, DR PERKINS Primary Care Physician Kim Hutchinson Primary Care Provider Kim Hutchinson MD Primary Care Provider KIM HUTCHINSON Primary Care Physician SOFI YOON, DR PERKINS Primary Care Unavailable [facility] 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SEED TESTER, WINSOME M Admitting Unavail able JOHAN YOON, NANNETTE Consulting Unavailable JOHAN YOON, NANNETTE Attending Unavailable MARILU YOON, DR GRACIA Attending Unavailab feliciano CAMARA MD, DR PERKINS Primary Care Unavailable SEBAS HARDY Attending Unavailable KIM HUTCHINSON Primary Care Unavailable KASSANDRA MCGOVERN MD Attending Unavaila KIM Jay Primary Care Unavailable GRACIELA LEWIS-RAMIRO, AMY Mosley Attending Arian CAMARA MD, DR PERKINS Primary Care Unavailable KIM HUTCHINSON Primary Care Unavailable KIM HUTCHINSON Primary Care Unavailable Dr. Kim Hutchinson MD Primary Care Provider [phone] Dr. Kim Hutchinson MD Referring Provider Garth Mckeon Attending Provider Melissa Campbell Attending Provider Melissa Campbell Referring Provider Dr. Kim Hutchinson MD Primary Care Provider Dr. Kim Hutchinson MD Referring Provider Garth Mckeon Attending Provider Corinne YOON, Dr. Overton Attending Provider Corinne YOON, Dr. Overton Referring Provider Becky Sun Referring Unavailable [facility] [place] Primary Care Unavailable Becky Sun Attending Unavailable [facility] Primary Care Unavailable ChanhassenMelissa Attending Unavailable [place], Melissa Referring Unavailable Garth Mckeon Attending Unavailable Waedel, Kim Referring Unavailable [facility], [place] Primary Care Unavailable [place], [place] Referring Unavailable Garth Mckeon Attending Unavailable [place], [place] Primary Care Unavailable ChanhassenMelissa Attending Unavailable [place], Melissa Referring Unavailable Waed, [place] Primary Care Unavailable [facility] [place] Attending Unavailable [place], [place] Referring Unavailable [facility] [place] Primary Care Unavailable Jorje Alberto Attending Unavailable [facility] [place] Primary Care Unavailable [facility] [place] Attending Unavailable [facility] [place] Referring Unavailable Waed, [place] Primary Care Unavailable Becky Sun Referring Unavailable Waed, [place] Primary Care Unavailable Becky Sun Attending Unavailable MIKE HUTCHISON Attending Unavailable [facility] [place] Primary Care Unavailable [facility] [place] Primary Care Unavailable MD BECKY SUN Attending Unavailable [facility] Primary Care Unavailable AGUSTIN ACEVES DO Attending Unavailable BRADLEY ANGEL DO Attending Unavailable [facility] Primary Care Unavailable [facility] [place] Primary Care Unavailable MARILU YOON, DR GRACIA Attending Unavailab le Allergies Allergy Classification Reported Allergen(s) Allergy Type Date of Onset Reaction(s) Facility (4 sources) Amoxicillin; Translations: [amoxicillin] Drug Allergy [facility] (4 sources) Sulfamethoxazole / Trimethoprim; Translations: [sulfamethoxazole-tr imethoprim] Drug Allergy [facility] (3 sources) Azithromycin Drug Allergy 5 [facility] Comment on above: severe rash (3 sources) Sulfamethoxazole Drug Allergy 5 [facility] (3 sources) Trimethoprim Drug Allergy 5 [facility] (1 source) Azithromycin Drug Allergy 5 [facility] (1 source) Sulfamethoxazole Drug Allergy 5 [facility] (1 source) Trimethoprim Drug Allergy 5 [facility] Medications Current Medications Medication Drug Class(es) [...] 10 days. apixaban 5 mg oral tablet (11 sources) Factor Xa Inhibitor Start: 01-28-2024 take 1 tablet by mouth twice daily ELIQUIS 5 mg tab(s) Take 1 tablet by mouth two times a day. 01/28/2024 Active Start: 07-29-2023 End: 08-28-2023 apixaban 5 mg oral tablet Do se : 5 mg = 1 tab(s), Oral, BID, # 60 tab(s), 0 Refill(s), Pharmacy: [facility]/pharmacy #[id number], 182.9, cm, 07/28/23 1:57:00 EDT, Height, [...] bisacodyl 5 mg delayed release oral tablet (11 sources) Stimulant Laxative Start: 11-26-2017 take 4 tablets by mouth once in the evening Bisacodyl (Dulcolax (Bisacodyl)) 5 mg tablet,delayed release (DR/EC) Active 20 mg PO ONCE 4 0 November 26, 2017 12:00am Take 4 tablets by mouth at 2:00 pm busPIRone hydrochloride 10 mg oral tablet (20 sources) Start: 06-16-2019 busPIRone 10 mg oral tablet Dose : 20 mg = 2 tab(s), Oral, TID, 0 Refill(s) Start Date: 06/16/19 Status: Ordered Repeat number: 1 Start: 05-13-2013 take 2 tablets by mo [facility] three times daily Buspirone 10 MG tablet [...] 08/17/2023 Active clindamycin 300 mg oral capsule (4 sources) Lincosamide Antibacterial Start: 07-13-2024 take 1 capsule by mouth three times daily Clindamycin Hcl 300 mg capsule Active 300 mg PO THREE TIMES A DAY 30 0 July 13, 2024 12:00am Start: 06-07-2024 End: 06-17-2024 clindamycin 300 mg oral caps ule Dose : 300 mg = 1 cap(s), PO, q6hr, X 10 day(s), # 40 cap(s), 0 Refill(s), 06/17/24 3:54:00 PM EST, 80.95 Start Date: 06/07/24 Stop Date: 06/17/24 Status: Ordered Quantity: 40.0 Unit: cap(s) Repeat number: 1 clobetasol propionate 0.5 mg/ml topical solution (1 source) Corticosteroid Start: 10-08-2024 clobetasol 0.05% topical solution 0 Refill(s), 80.95 Start Date: 10/08/24 Status: Ordered Repeat number: 1 clotrimazole 10 mg/ml topical cream (3 sources) Azole Antifungal Start: 08-09-2023 End: 08-23-2023 clotrimazole (LOTRIMIN) 1 % cream Indications: Umbilical discharge Apply to affected area two times a day for 14 days. 30 g 0 08/09/2023 08/23/2023 Active dexamethasone 0.001 mg/mg / neomycin 0.0035 mg/mg / polymyxin b 10 unt/mg ophthalmic ointment (2 sources) Aminoglycoside Antibacterial, Polymyxin-class Antibacterial, Corticosteroid Start: 10-08-2024 apply 1 dose into the eye(s) three times daily dexamethasone/neom ycin/polymyxin B 1 mg-3.5 mg-10,000 units/g ophthalmic ointment Dose = 1 weston, Ophthalmic, TID, 0 Refill(s) Start Date: 10/08/24 Status: Ordered Repeat number: 1 End: 03-06-2022 BNUFRZLL-[id number] 3.5 MG/ML-10,000 UNIT/ML-0.1% EYE DROPS 1 Drop as needed. 0 03/06/2022 Discontinued Comment on above: 1 Drop as needed. dexamethasone 0.001 mg/mg / tobramycin 0.003 mg/mg ophthalmic ointment (5 sources) Aminoglycoside Antibacterial, Corticosteroid Start: 03-19-2024 Tobradex ophthalmic ointment 0 Refill(s) Start Date: 03/19/24 Status: Ordered Repeat number: 1 DEXCOM G7 SENSOR luis angel (1 source) Start: 12-15-2023 DEXCOM G7 SENSOR luis angel USE DAILY, CHANGE SENSOR EVERY 10 DAYS 12/15/2023 Active DME [facility] (20 sources) Start: 02-03-2024 DME [facility] See Instructions, Check blood glucose level twice daily at 8AM and 8PM., # 1 EA, 0 Refill(s), 71.4 Start Date: 02/03/24 Status: Ordered Quantity: 1.0 Unit: EA Repeat number: 1 Start: 07-29-2023 DME MISCellane ous See Instructions, alcohol swabs., # 1 EA, 0 Refill(s), Pharmacy: [facility]/pharmacy #[id number], 182.9, cm, 07/28/23 1:57:00 EDT, Height, 70.5, kg, 07/28/23 1:57:00 EDT, Dosing Weight Start Date: 07/29/23 Status: Ordered Quantity: 1.0 Unit: EA Repeat number: 1 Start: 07-29-2023 DME MISCellane ous See Instructions, alcohol swabs., # 1 EA, 0 Refill(s), Pharmacy: [facility]/pharmacy #[id number], 182.9, cm, 07/28/23 1:57:00 EDT, Height, 70.5, kg, 07/28/23 1:57:00 EDT, Dosing Weight Start Date: 07/29/23 Status: Ordered Start: 07-29-2023 DME MISCellane ous See Instructions, Pen needles-120., # 1 EA, 0 Refill(s), Pharmacy: [facility]/pharmacy #[id number], Type 2 diabetes mellitus, 182.9, cm, 07/28/23 1:57:00 EDT, Height, 70.5, kg, 07/28/23 1:57:00 EDT, Dosing Weight Start Date: 07/29/23 Status: Ordered Quantity: 1.0 Unit: EA Repeat number: 1 Indications: Type 2 diabetes mellitus without complications; Start: 07-29-2023 DME MISCellane ous See Instructions, Pen needles-120., # 1 EA, 0 Refill(s), Pharmacy: [facility]/pharmacy #[id number], Type 2 diabetes mellitus, 182.9, cm, 07/28/23 1:57:00 EDT, Height, 70.5, kg, 07/28/23 1:57:00 EDT, Dosing Weight Start Date: 07/29/23 Status: Ordered Quantity: 1.0 Unit: EA Repeat number: 1 Indication: Type 2 diabetes mellitus without complications Start: 07-29-2023 DME MISCellane ous See Instructions, Pen needles-120., # 1 EA, 0 Refill(s), Pharmacy: [facility]/pharmacy #[id number], Type 2 diabetes mellitus, 182.9, cm, 07/28/23 1:57:00 EDT, Height, 70.5, kg, 07/28/23 1:57:00 EDT, Dosing Weight Start Date: 07/29/23 Status: Ordered Start: 07-29-2023 DME MISCellane ous See Instructions, Glucometer-Check glucose TIDAC., # 1 EA, 0 Refill(s), Pharmacy: [facility]/pharmacy #[id number], Type 2 diabetes mellitus, 182.9, cm, 07/28/23 1:57:00 EDT, Height, 70.5, kg, 07/28/23 1:57:00 EDT, Dosing Weight Start Date: 07/29/23 Status: Ordered Quantity: 1.0 Unit: EA Repeat number: 1 Indications: Type 2 diabetes mellitus without complications; Start: 07-29-2023 DME MISCellane ous See Instructions, GLucometer., # 1 EA, 0 Refill(s), Pharmacy: [facility]/pharmacy #[id number], Type 2 diabetes mellitus, 182.9, cm, 07/28/23 1:57:00 EDT, Height, 70.5, kg, 07/28/23 1:57:00 EDT, Dosing Weight Start Date: 07/29/23 Status: Ordered Quantity: 1.0 Unit: EA Repeat number: 1 Indications: Type 2 diabetes mellitus without complications; Start: 07-29-2023 DME MISCellane ous See Instructions, Glucometer-Check glucose TIDAC., # 1 EA, 0 Refill(s), Pharmacy: [facility]/pharmacy #[id number], Type 2 diabetes mellitus, 182.9, cm, 07/28/23 1:57:00 EDT, Height, 70.5, kg, 07/28/23 1:57:00 EDT, Dosing Weight Start Date: 07/29/23 Status: Ordered Quantity: 1.0 Unit: EA Repeat number: 1 Indication: Type 2 diabetes mellitus without complications Start: 07-29-2023 DME MISCellane ous See Instructions, GLucometer., # 1 EA, 0 Refill(s), Pharmacy: [facility]/pharmacy #[id number], Type 2 diabetes mellitus, 182.9, cm, 07/28/23 1:57:00 EDT, Height, 70.5, kg, 07/28/23 1:57:00 EDT, Dosing Weight Start Date: 07/29/23 Status: Ordered Quantity: 1.0 Unit: EA Repeat number: 1 Indication: Type 2 diabetes mellitus without complications Start: 07-29-2023 DME MISCellane ous See Instructions, Glucometer-Check glucose TIDAC., # 1 EA, 0 Refill(s), Pharmacy: [facility]/pharmacy #[id number], Type 2 diabetes mellitus, 182.9, cm, 07/28/23 1:57:00 EDT, Height, 70.5, kg, 07/28/23 1:57:00 EDT, Dosing Weight Start Date: 07/29/23 Status: Ordered Start: 07-29-2023 DME MISCellane ous See Instructions, GLucometer., # 1 EA, 0 Refill(s), Pharmacy: [facility]/pharmacy #[id number], Type 2 diabetes mellitus, 182.9, cm, 07/28/23 1:57:00 EDT, Height, 70.5, kg, 07/28/23 1:57:00 EDT, Dosing Weight Start Date: 07/29/23 Status: Ordered Start: 07-29-2023 DME MISCellane ous See Instructions, Pen needles., # 1 EA, 0 Refill(s), Pharmacy: [facility]/pharmacy #[id number], 182.9, cm, 07/28/23 1:57:00 EDT, Height, 70.5, kg, 07/28/23 1:57:00 EDT, Dosing Weight Start Date: 07/29/23 Status: Ordered Quantity: 1.0 Unit: EA Repeat number: 1 Start: 07-29-2023 YOKO kumar See Instructions, Pen needles., # 1 EA, 0 Refill(s), Pharmacy: [facility]/pharmacy #[id number], 182.9, cm, 07/28/23 1:57:00 EDT, Height, 70.5, kg, 07/28/23 1:57:00 EDT, Dosing Weight Start Date: 07/29/23 Status: Ordered donepezil hydrochloride 5 mg oral tablet (14 sources) Start: 07-29-2023 Aricept 5 mg o ral tablet Dose : 5 mg = 1 tab(s), Oral, qHS Start Date: 07/29/23 Status: Ordered Repeat number: 1 Comment on above: Take 5 mg by mouth d aily at bedtime. doxycycline monohydrate 100 mg oral capsule (15 sources) Tetracycline- class Drug Start: 05-26-2024 take [...] once daily. finasteride 5 mg oral tablet (8 sources) 5-alpha Reductase Inhibitor Start: 09-12-19 24 finasteride 5 mg oral tablet Dose : 5 mg = 1 tab(s), Oral, qDay, # 90 tab(s), 0 Refill(s) Start Date: 09/12/23 Status: Ordered Quantity: 90.0 Unit: tab(s) Repeat number: 1 gabapentin 100 mg oral capsule (20 sources) Anti-epileptic Agent Start: 05-13-19 14 gabapentin 100 mg oral capsule Dose : 100 mg = 1 cap(s), Oral, BID, # 60 cap(s), 0 Refill(s), 79.1 Start Date: 06/16/19 Status: Ordered Quantity: 60.0 Unit: cap(s) Repeat number: 1 Comment on above: Take 100 mg by mouth twice daily. 3 ml insulin glargine 100 unt/ml pen injector (15 sources) Insulin Analog Start: 11-06-19 inject 1 dose by subcutaneous injection once daily in the morning Basaglar 100 unit(s)/mL 3 mL KwikPen Dose : 8 unit(s) =, Subcutaneous, qAM, # 15 mL, 3 Refill(s), Pharmacy: [facility] ([facility]), 185.5, cm, 10/08/24 11:00:00 EDT, Height, kg, 10/08/24 11:00:00 EDT, Dosing Weight Start Date: 11/05/24 Status: Ordered Quantity: 15.0 Unit: mL Repeat number: 4 Start: 06-01-2024 inject 1 dose by sub cutaneous injection once daily in the morning Basaglar 100 unit(s)/mL 3 mL KwikPen Dose : 8 unit(s) =, Subcutaneous, qAM, # 15 mL, 3 Refill(s), Pharmacy: [facility] ([facility]), 185.1, cm, 03/19/24 [...] 15 mL, 0 Refill(s), Pharmacy: [facility] ([facility]), 185.1, cm, 12/17/23 11:46:00 EDT, Height, kg, 12/17/23 11:46:00 EDT, Dosing Weight Start Date: 12/17/23 Status: Ordered Quantity: 15.0 Unit: mL Repeat number: 1 Start: 07-29-2023 End: 08-28-2023 inject 1 dose by subcutaneous injection twice daily Lantus Solostar Pen 100 units/mL 3 mL Pen Dose : 20 unit(s) =, Subcutaneous, BID, # 15 mL, 0 Refill(s), Pharmacy: [facility]/pharmacy #[id number], Type 2 diabetes mellitus, 182.9, cm, 07/28/23 1:57:00 EDT, Height, kg, 07/28/23 1:57:00 EDT, Dosing Weight Start Date: 07/29/23 Stop Date: 08/28/23 Status: Ordered Start: 07-29-2023 inject 1 dose by sub cutaneous injection once daily at bedtime Lantus Solostar Pen 100 units/mL 3 mL Pen Dose : 20 unit(s) =, Subcutaneous, qHS, # 3 mL, 0 Refill(s), Pharmacy: [facility]/pharmacy #[id number], Type 2 diabetes mellitus, 182.9, cm, 07/28/23 1:57:00 EDT, Height, kg, 04/14/24 1:57:00 EDT, Dosing Weight Start Date: 07/29/23 [...] congestion metFORMIN hydrochloride 500 mg oral tablet (11 sources) Biguanide Start: 08-12-2024 MetFORMIN (Eqv-Glucophage XR) 500 mg oral tablet, EXTENDED RELEASE Dose : 500 mg = 1 tab(s), Oral, qAM, 1 tab every morning. To be taken with food., # 30 tab(s), 3 Refill(s), Pharmacy: [facility] ([facility]), 185.1, cm, 03/19/24 13:19:00 EST, Height, kg, 03/19/24 13:19:00 EST, Dosing Weight Start Date: 08/12/24 Status: Ordered Quantity: 30.0 Unit: tab(s) Repeat number: 4 Start: 05-12-2024 MetFORMIN (Eqv -Glucophage XR) 500 mg oral tablet, EXTENDED RELEASE Dose : 500 mg = 1 tab(s), Oral, qAM, 1 tab every morning. To be taken with food., # 30 tab(s), 3 Refill(s), Pharmacy: [facility] ([facility]), 185.1, cm, 03/19/24 13:19:00 EST, Height, kg, 03/19/24 13:19:00 EST, Dosing Weight Start Date: 05/12/24 Status: Ordered Quantity: 30.0 Unit: tab(s) Repeat number: 4 Start: 04-16-2024 MetFORMIN (Eqv -Glucophage XR) 500 mg oral tablet, EXTENDED RELEASE Dose : 500 mg = 1 tab(s), Oral, with supper, # 30 tab(s), 3 Refill(s), Pharmacy: [facility] ([facility]), 185.1, cm, 03/19/24 [...] supper, # 30 tab(s), 0 Refill(s), Pharmacy: [facility]/pharmacy #[id number], 182.9, cm, 07/28/23 1:57:00 EDT, Height, [...] BIDM, # 15 tab(s), 0 Refill(s), Pharmacy: [facility]/pharmacy #[id number], 182.9, cm, 07/28/23 1:57:00 EDT, Height, [...] Stop Date: 07/28/23 Status: Completed Multivitamin preparation (10 sources) Start: 07-29-2023 take 1 tablet by mouth once daily Multivitamin Dose = 1 tab(s), Oral, Daily, 0 Refill(s) Start Date: 07/29/23 Status: Ordered Repeat number: 1 Start: 07-29-2023 take 1 tablet by terri th once daily Multivitamin Dose = 1 tab(s), Oral, Daily, 0 Refill(s) Start Date: 07/29/23 Status: Ordered mycophenolate mofetil 500 mg oral tablet (1 source) Start: 10-08-2024 mycophenolate mofetil 500 mg oral tablet Dose : 1,000 mg = 2 tab(s), Oral, BID, # 120 tab(s), 0 Refill(s) Start Date: 10/08/24 Status: Ordered Quantity: 120.0 Unit: tab(s) Repeat number: 1 nystatin 346375 unt/ml topical cream (8 sources) Polyene Antifungal Start: 01-02-2024 nystatin (M [...] chloride 10 mg extended release oral tablet (17 sources) Cholinergic Muscarinic Antagonist Start: 11-12-2023 take [...] by mouth once daily. polyethylene glycol 3350 90482 mg powder for oral solution (11 sources) Osmotic Laxative Start: 11-26-2017 Polyethylene Glycol 3350 (Miralax) 17 gram/dose powder Active 0 PO .COMPLEX 238 0 November 26, 2017 12:00am Mix with gatorade and start colonoscopy mixture at 4 pm Start: 11-26-2017 Polyethylene G lycol 3350 (Miralax) 17 gram/dose powder Active 0 PO .COMPLEX 238 November 26, 2017 12:00am Mix with gatorade and start colonoscopy mixture at 4 pm polymyxin b 05275 unt/ml / trimethoprim 1 mg/ml ophthalmic solution [...] 02/13/2024 Active QUEtiapine 25 mg oral tablet (17 sources) Atypical Antipsychotic Start: 03-06-2022 take 1 [...] daily. solifenacin succinate 10 mg oral tablet (20 sources) Cholinergic Muscarinic Antagonist Start: 4 End: [...] 5 mg by mouth o nce daily. tacrolimus 0.001 mg/mg topical ointment (1 source) Calcineurin Inhibitor Immunosuppressant Start: 10-08-2024 tacrolimus 0.1% topical ointment 0 Refill(s), 80.95 Start Date: 10/08/24 Status: Ordered Repeat number: 1 tamsulosin hydrochloride 0.4 mg oral capsule (14 sources) alpha-Adrenergic Adilia Start: 10-08-2024 tamsulosin 0.4 mg oral capsule Dose : 0.4 mg = 1 cap(s), Oral, qDay, # 30 cap(s), 0 Refill(s) Start Date: 10/08/24 Status: Ordered Quantity: 30.0 Unit: cap(s) Repeat number: 1 Start: 01-28-2024 take 0.4 mg by mouth once abbi y tamsulosin (FLOMAX) 0.4 mg Take 0.4 mg [...] 1:00am September 04, 2013 4:39pm timolol/dorzolamide/latanop/ PF ([id number]-[id number],PF,) 0.5-2-0.005 % drop (3 sources) timolol/dorzolam [place]/latanop/PF ([id number]-[id number]-[id number],PF,) 0.5-2-0.005 % drop Use in eyes. Active timolol/dorzolam [place]/latanop/PF ([id number]-[id number],PF,) 0.5-2-0.005 % drop Use in eyes. 0 Active tobramycin 3 mg/ml ophthalmic solution (6 sources) Aminoglycoside Antibacterial Start: 05-26-2024 Tobramycin 0.3 % drops Active 1 NMA OPHTHALMIC Q2H 5 0 July 13, 2024 12:00am to affected eye while awake first 24 hours, then 3x/day on days 2-5 Zinc Oxide (3 sources) zinc oxide (SALVADOR TIN DAILY DEFENSE TOPICAL) Apply to affected area. Active zinc oxide (SALVADOR TIN DAILY DEFENSE TOPICAL) Apply to affected area. 0 Active Completed/Discontinued Medications Medication Drug Class(es) Dates Sig (Normalized) Sig (Original) ARIPiprazole 5 mg oral tablet (11 sources) Atypical Antipsychotic Start: 11-26-2014 End: 11-22-2017 [...] Date: 12/17/19 Stop Date: 12/24/19 Status: Ordered dutasteride 0.5 mg oral capsule (11 sources) 5-alpha Reductase Inhibitor Start: 05-13-2013 End: [...] TIDAC, # 15 mL, 0 Refill(s), Pharmacy: [facility]/pharmacy #[id number], Type 2 diabetes mellitus, 182.9, cm, 07/28/23 [...] mg/ml / timolol 5 mg/ml ophthalmic solution (7 sources) Prostaglandin Analog, beta-Adrenergic Adilia Start: 09-12-19 latanoprost-timolol 0.005%-0.5% ophthalmic solution 0 Refill(s) Start Date: 09/12/23 Status: Ordered Repeat number: 1 24 hr mirabegron 50 mg extended release oral tablet (12 sources) beta3-Adrenergic Agonist Start: 11-27-19 End: 03-06-20 take 1 tablet by mouth once daily Mirabegron 50 MG tablet extended release 24 hr Discontinued 50 mg PO DAILY 30 5 November 26, 2014 12:00am November 22, 2017 10:37am Comment on above: Take by mouth once d aily. triamcinolone acetonide 1 mg/ml topical lotion (11 sources) Corticosteroid Start: 08-29-19 14 End: 11-23-19 Triamcinolone Acetonide 0.1% lotion Discontinued 1 % [...] Onset: 06-27-2006 Chronic Bacterial infection; unspecified site (3 sources) Methicillin resistant Staphylococcus aureus infection; Translations: [Methicillin resistant Staphylococcus aureus infection, unspecified site] 04-30-2024 Episodic Cardiac dysrhythmias (8 sources) Unspecified atrial fibrillation; Translations: [Atrial fibrillation] Onset: 07-28-2023 Chronic Congestive heart failure; nonhypertensive (7 sources) Chronic diastolic heart failure 09-12-2023 Chronic Developmental disorders (5 sources) Intellectual disability; Translations: [Unspecified intellectual disabilities] Onset: 06-27-2006 Chronic Diabetes mellitus with complications (3 sources) Hyperosmolar non-ketotic state due to type 2 diabetes mellitus; Translations: [Type 2 diabetes mellitus with hyperosmolarity without nonketotic hyperglycemic-hyperos molar coma ([facility])] Onset: 07-27-2023 Chronic Diabetes mellitus without complication (9 sources) Type 2 diabetes mellitus without complication; Translations: [Type 2 diabetes mellitus without complications] Onset: 07-28-2023 Chronic E Codes: Fall (2 sources) Fall; Translations: [Unspecified fall, initial encounter] Onset: 11-14-2024 Episodic Epilepsy; convulsions (1 source) Seizure; Translations: [Unspecified convulsions] Onset: 06-07-2024 Episodic Genitourinary symptoms and ill-defined conditions (5 sources) Incontinence; Translations: [Mixed incontinence] Onset: 03-02-2008 Chronic Immunizations and screening for infectious disease (5 sources) Serology positive 12-17-2023 Episodic Inflammation; infection of eye (except that caused by tuberculosis or sexually transmitteddisease) (9 sources) Acute conjunctivitis of right eye; Translations: [Unspecified acute conjunctivitis, right eye] 02-06-2024 Episodic Mood disorders (5 sources) Major depressive disorder; Translations: [Major depressive disorder, single episode, unspecified] Onset: 06-27-2006 Chronic Nausea and vomiting (11 sources) Nausea; Translations: [Nausea] 12-03-2017 Episodic Open wounds of head; neck; and trunk (2 sources) Laceration of skin of eyelid AND periocular area; Translations: [Laceration without foreign body of left eyelid and periocular area, initial encounter] Onset: 11-14-2024 Episodic Other and unspecified benign neoplasm (4 [...] digestive system and abdomen] 08-09-2023 Episodic Other inflammatory condition of skin (1 source) Pemphigus vulgaris; 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] Onset: 11-04-2024 Chronic Other nutritional; endocrine; and metabolic disorders (1 source) Developmental delay; Translations: [Unspecified lack of expected normal physiological development in childhood] Episodic Other nutritional; endocrine; and metabolic disorders (1 source) Delay in physiological development; Translations: [Unspecified lack of expected normal physiological development in childhood] Onset: 07-28-2023 Episodic Other screening for suspected conditions (not mental disorders or infectious disease) (13 sources) Patient encounter status; Translations: [Encounter for screening for malignant neoplasm of colon] Onset: 02-26-2023 12-03-2017 Episodic Other skin disorders (3 sources) Eruption; Translations: [Rash and other nonspecific skin eruption] 04-30-2024 Episodic Other upper respiratory disease (4 sources) Allergic rhinitis; Translations: [Allergic rhinitis, unspecified] Onset: 06-27-2006 06-27-2006 Chronic Other upper respiratory infections (1 source) Chronic sinusitis; Translations: [Chronic sinusitis, unspecified] Onset: 06-07-2024 Chronic Unclassified (6 sources) Long-term current use of insulin 11-12-2023 [...] 05-15-2024 Episodic Skin and subcutaneous tissue infections (6 sources) Cellulitis; Translations: [Cellulitis, unspecified] Onset: 04-06-2024 Episodic Viral infection (1 source) Disease caused by 2019-nCoV; Translations: [COVID-19] Onset: 07-28-2023 Results Test Name Value Interpretation Reference Range Facility CT HEAD OR BRAIN W/O CONTRAS Ton 11-14-2024 CT HEAD OR BRAIN W/O CONTRAST ORIGINAL EXAMINATION: CT OF THE HEAD WITHOUT CONTRAST 11/14/2024 10:36 am TECHNIQUE: CT of the head was performed without the administration of intravenous contrast. Automated exposure control, iterative reconstruction, and/or weight based adjustment of the mA/kV was utilized to reduce the radiation dose to as low as reasonably achievable. COMPARISON: None. HISTORY: ORDERING SYSTEM PROVIDED HISTORY: Reason for Exam: fall at [facility]. FINDINGS: Study limited by persistent patient motion. BRAIN/VENTRICLES: There is no acute intracranial hemorrhage, mass effect or midline shift. No abnormal extra-axial fluid collection. The xiong-white differentiation is maintained without evidence of an acute infarct. There is no evidence of hydrocephalus. A calcified meningioma associated with the anterior falx is unchanged from prior study. There is moderate diffuse cerebellar atrophy and mild scattered cerebral atrophy unchanged from prior study. ORBITS: The visualized portion of the orbits demonstrate no acute abnormality. SINUSES: Visualized paranasal sinuses show developing polyp or retention cyst in the right maxillary sinus, the remaining paranasal sinuses are clear. SOFT TISSUES/SKULL: No acute abnormality of the visualized skull or soft tissues. IMPRESSION: 1. No acute intracranial abnormality. 2. Stable calcified meningioma associated with the anterior falx. 3. Developing polyp or retention cyst in the right maxillary sinus. 4. 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 Interpreted by: Jefferson Norton DO Preliminary Report By: Jefferson Norton DO Electronically signed By Jefferson Norton DO Dictated Date: 11/14/2024 10:40:01 AM Prelim Date: 11/14/2024 10:44:46 AM Sign Date: 11/14/2024 10:44:46 AM Ordering Provider: MIKE HUTCHISON [facility] CT MAXILLOFACIAL W/O CONTRAS Ton 11-14-2024 CT MAXILLOFACIAL W/O CONTRAST ORIGINAL EXAMINATION: CT OF THE FACE WITHOUT CONTRAST 11/14/2024 10:37 am TECHNIQUE: CT of the face was performed without the administration of intravenous contrast. Multiplanar reformatted images are provided for review. Automated exposure control, iterative reconstruction, and/or weight based adjustment of the mA/kV was utilized to reduce the radiation dose to as low as reasonably achievable. COMPARISON: None HISTORY: ORDERING SYSTEM PROVIDED HISTORY: Reason for Exam: fall FINDINGS: Significantly degraded examination due to patient motion with blurring. Edentulous. Polypoid mucosal thickening of the right maxillary sinus. Mild circumferential mucosal thickening of the left maxillary sinus. Ostiomeatal units are patent. There is mild partial opacification of the bilateral ethmoid air cells. Sphenoid sinuses are aerated. Nasal septum is midline. Partial opacification of the right frontal sinus. No hemosinus. No definite fracture. There is a bandage in asymmetric soft tissue swelling of the left periorbital/forehead soft tissues there could be a small left frontal subcutaneous hematoma measuring approximately 1.4 cm. For evaluation of the intracranial structures refer to same day dedicated CT head. Mild asymmetric left periorbital soft tissue swelling. The TMJ joints are maintained. IMPRESSION: 1. Significantly degraded examination due to patient motion with blurring. 2. No definite fracture. 3. Mild asymmetric left periorbital soft tissue swelling with swelling extending to the left frontal region where there appears to be a small bandage and a small subcutaneous hematoma. Posttraumatic in etiology. 4. As further warranted repeat examination can be performed. 5. Mild sinus disease as described above. Interpreted by: Richy Cruz Preliminary Report By: Richy Cruz Electronically signed By Richy Cruz Dictated Date: 11/14/2024 10:40:36 AM Prelim Date: 11/14/2024 10:44:56 AM Sign Date: 11/14/2024 10:44:56 AM Ordering Provider: MIKE HUTCHISON [facility] CT SPINE CERVICAL W/O STEPHEN Zarco 11-14-2024 CT SPINE CERVICAL W/O CONTRAST ORIGINAL EXAMINATION: CT OF THE CERVICAL SPINE WITHOUT CONTRAST 11/14/2024 10:37 am TECHNIQUE: CT of the cervical spine was performed without the administration of intravenous contrast. Multiplanar reformatted images are provided for review. Automated exposure control, iterative reconstruction, and/or weight based adjustment of the mA/kV was utilized to reduce the radiation dose to as low as reasonably achievable. COMPARISON: None. HISTORY: ORDERING SYSTEM PROVIDED HISTORY: Reason for Exam: fall FINDINGS: Motion degraded examination with blurring. BONES/ALIGNMENT: lateral masses of C1 are symmetrically aligned with C2. No jumped or perched facets. Vertebral body heights are maintained. There is mild multilevel cervical spondylosis with facet and uncovertebral joint arthrosis. No suspicious osseous lesions. Prevertebral soft tissues are within normal limits. C1-C2 degenerative changes. Preservation of the normal cervical lordosis without significant spondylolisthesis. No severe spinal canal or foraminal narrowing. Thyroid gland appears homogeneous. Emphysema. Biapical nodular pleural thickening and scarring. IMPRESSION: 1. Motion degraded examination. No acute cervical spine fracture or traumatic spondylolisthesis. 2. Emphysema with biapical nodular pleural thickening and scarring. 3. Additional findings as above. Interpreted by: Richy Cruz Preliminary Report By: Richy Cruz Electronically signed By Richy Cruz Dictated Date: 11/14/2024 10:45:08 AM Prelim Date: 11/14/2024 10:48:00 AM Sign Date: 11/14/2024 10:48:00 AM Ordering Provider: MIKE Jules [facility] [place] [id number] 11-02-2024 [facility] Misc. COMMENT Normal . [facility] Comment on above: Order Comment: [id number] 2 DESMOGLEIN 1 AND 3 D SST FZ Result Comment: Test Ordered: [id number] Reese 1 and Reese 3 IgG Desmoglein 1 IgG 172 [H ] RU/mL Reference Range: Neg: <20 Desmoglein 3 IgG 7 RU/mL BN Reference Range: Neg: <20 Positive test results might suggest a potential diagnosis of pemphigus. Nevertheless, the definitive clinical assessment should rely on a comprehensive evaluation that combines clinical characteristics with the findings from additional supportive tests. These supplementary tests include histopathology using standard microscopy, and indirect immunofluorescence on human salt-split skin and monkey esophagus substrates. Performed at: [address] [id number] Associate Juvenile Court Judge: Desiree Man MD, Phone: [phone] Performed at: [address] [id number] Associate Juvenile Court Judge: Chaparro Samayoa PhD, Phone: [phone] Performed By: #### L 3410.9992, L100.0100, L500.4050 #### [facility] [address] [place], [address] Absolute lymphocyte countOrd ered By: Becky Sun on 10-30-2024 Lymphocytes Auto (Unsp spec) [#/Vol] 1.90 10*3/uL 0.83-4.51 [facility] Absolute neutrophil countOrd ered By: Becky Sun on 10-30-2024 Neutrophils (Bld) [#/Vol] 8.8 10*3/uL High 2.0-7.7 [facility] Anion gap in Serum or Plasma Ordered By: Becky Sun on 10-30-2024 Anion gap [Moles/Vol] 12 mmol/L 5- [facility] Automated lymphocyte count a s percentage of total leukocytesOrdered By: Becky Sun on 10-30-2024 Lymphocytes/100 WBC Auto (Unsp spec) 16.0 % Low - [facility] BUN/creatinine ratioOrdered By: Becky Sun on 10-30-2024 Urea nitrogen/Creatinine [Mass ratio] 18.0 mg/mg - [facility] Basophil percentageOrdered B y: Becky Sun on 10-30-2024 Basophils/100 WBC (Bld) 0.7 % 0-1 [facility] Bilirubin, totalOrdered By: Becky Sun on 10-30-2024 Bilirubin [Mass/Vol] 0.36 mg/dL 0.00-1.30 [facility] CBC W/Diff, Automatedon 10-13 Absolute Lymph 1.90 X10 3/uL Normal 0.83-4.51 [facility] Comment on above: Performed By: #### L 3410.9992, L100.0100, L500.4050 #### [facility] [address] [place], [address] Absolute Neut 8.8 X10 3/uL High 2.0-7.7 [facility] Comment on above: Performed By: #### L 3410.9992, L100.0100, L500.4050 #### [facility] [address] [place], [address] Basophils/100 WBC (Bld) 0.7 % Normal 0-1 [facility] Comment on above: Performed By: #### L 3410.9992, L100.0100, L500.4050 #### [facility] [address] [place], [address] Eosinophils/100 WBC (Bld) 2.2 % Normal 0-5 [facility] Comment on above: Performed By: #### L 3410.9992, L100.0100, L500.4050 #### [facility] [address] [place], [address] Erythrocyte distribution width (RBC) [Ratio] 13.4 % Normal 11.6-14.6 [facility] Comment on above: Performed By: #### L 3410.9992, L100.0100, L500.4050 #### [facility] [address] [place], [address] Hematocrit (Bld) [Volume fraction] 42.5 % Normal 40-54 [facility] Comment on above: Performed By: #### L 3410.9992, L100.0100, L500.4050 #### [facility] [address] [place], [address] Hemoglobin (Bld) [Mass/Vol] 14.2 g/dL Normal 13.0-16.5 [facility] Comment on above: Performed By: #### L 3410.9992, L100.0100, L500.4050 #### [facility] [address] [place], [address] IG% 0.300 Normal 0.0-0.9 [facility] Comment on above: Result Comment: IG% - Immature Granulocytes (promyelocytes, myelocytes and metamyelocytes) > 1% indicates that a LEFT SHIFT is Present. Performed By: #### L 3410.9992, L100.0100, L500.4050 #### [facility] [address] [place], [address] Lymphocytes/100 WBC (Bld) 16.0 % Low 19-41 [facility] Comment on above: Performed By: #### L 3410.9992, L100.0100, L500.4050 #### [facility] [address] [place], [address] MCH (RBC) [Entitic mass] 32.0 pg Normal 27.0-32.0 [facility] Comment on above: Performed By: #### L 3410.9992, L100.0100, L500.4050 #### [facility] [address] [place], [address] MCHC (RBC) [Mass/Vol] 33.4 g/dL Normal 32-36 [facility] Comment on above: Performed By: #### L 3410.9992, L100.0100, L500.4050 #### [facility] [address] [place], [address] MCV (RBC) [Entitic vol] 95.7 fL High 80-94 [facility] Comment on above: Performed By: #### L 3410.9992, L100.0100, L500.4050 #### [facility] [address] [place], [address] Monocytes/100 WBC (Bld) 6.4 % Normal 0-10 [facility] Comment on above: Performed By: #### L 3410.9992, L100.0100, [id number] #### [facility] [address] [place], [address] Neutrophils/100 WBC (Bld) 74.4 % High 47-70 [facility] Comment on above: Performed By: #### L 3410.9992, L100.0100, [id number] #### [facility] [address] [place], [address] Nucleated RBC (Bld) [#/Vol] 0 10*3/uL Normal 0-5 [facility] Comment on above: Performed By: #### L 3410.9992, L100.0100, L500.4050 #### [facility] [address] [place], [address] Platelet mean volume (Bld) [Entitic vol] 9.4 fL Normal 6.2-12.0 [facility] Comment on above: Performed By: #### L 3410.9992, L100.0100, L500.4050 #### [facility] [address] [place], [address] Platelets (Bld) [#/Vol] 265 10*3/uL Normal 150-450 [facility] Comment on above: Performed By: #### L 3410.9992, L100.0100, L500.4050 #### [facility] [address] [place], [address] RBC (Bld) [#/Vol] 4.44 10*6/uL Low 4.6-6.2 [facility] Comment on above: Performed By: #### L 3410.9992, L100.0100, L500.4050 #### [facility] [address] [place], [address] RDW SD 47.2 fl High 35.1-43.9 [facility] Comment on above: Performed By: #### L 3410.9992, L100.0100, L500.4050 #### [facility] [address] [place], [address] WBC (Bld) [#/Vol] 11.9 10*3/uL High 4.4-11.0 [facility] Comment on above: Performed By: #### L 3410.9992, L100.0100, L500.4050 #### [facility] [address] [place], [address] Carbon dioxide, total [Moles /volume] in Central venous bloodOrdered By: Becky Sun on 10-30-2024 CO2 [Moles/Vol] 24.4 mmol/L 21.0-32.0 [facility] Chloride assayOrdered By: Devorah Sun on 10-30-2024 Chloride [Moles/Vol] 105 mmol/L 98-108 [facility] Comprehensive Metabolic Prof ilon 10-30-2024 Albumin [Mass/Vol] 3.9 g/dL Normal 3.4-4.8 [facility] Comment on above: Performed By: #### L 3410.9992, L100.0100, L500.4050 #### [facility] [address] [place], [address] Albumin/Globulin [Mass ratio] 1.2 {ratio} Normal 0.9-2.4 [facility] Comment on above: Performed By: #### L 3410.9992, L100.0100, L500.4050 #### [facility] [address] [place], [address] ALK PHOS 85 U/L Normal 40-129 [facility] Comment on above: Performed By: #### L 3410.9992, L100.0100, L500.4050 #### [facility] [address] [place], [address] ALT [Catalytic activity/Vol] 11 U/L Normal <=46 [facility] Comment on above: Performed By: #### L 3410.9992, L100.0100, L500.4050 #### [facility] [address] [place], [address] AST [Catalytic activity/Vol] 14 U/L Normal <=37 [facility] Comment on above: Performed By: #### L 3410.9992, L100.0100, [id number] #### [facility] [address] [place], [address] Bilirubin [Mass/Vol] 0.36 mg/dL Normal 0.00-1.30 [facility] Comment on above: Performed By: #### L 3410.9992, L100.0100, L500.4050 #### [facility] [address] [place], [address] BUN/CRE 18.0 RATIO Normal 10-20 [facility] Comment on above: Performed By: #### L 3410.9992, L100.0100, L500.4050 #### [facility] [address] [place], [address] Calcium [Mass/Vol] 9.2 mg/dL Normal 7.6-11.0 [facility] Comment on above: Performed By: #### L 3410.9992, L100.0100, L500.4050 #### [facility] [address] [place], [address] Chloride [Moles/Vol] 105 mmol/L Normal 98-108 [facility] Comment on above: Performed By: #### L 3410.9992, L100.0100, L500.4050 #### [facility] [address] [place], [address] CO2 [Moles/Vol] 24.4 mmol/L Normal 21.0-32.0 [facility] Comment on above: Performed By: #### L 3410.9992, L100.0100, L500.4050 #### [facility] [address] [place], [address] Creatinine [Mass/Vol] 0.93 mg/dL Normal 0.70-1.20 [facility] Comment on above: Performed By: #### L 3410.9992, L100.0100, [id number] #### [facility] [address] [place], [address] GAP 12 Normal 5-15 [facility] Comment on above: Performed By: #### L 3410.9992, L100.0100, L500.4050 #### [facility] [address] [place], [address] GFR/1.73 sq M.predicted among non-blacks MDRD (S/P/Bld) [Vol rate/Area] 86 mL/min/{1.73_m2} Normal >60 [facility] Comment on above: Result Comment: mL/m in/1.73m2 CKD-EPI Creatinine Equation (2020) Performed By: #### L 3410.9992, L100.0100, L500.4050 #### [facility] [address] [place], [address] Globulin (S) [Mass/Vol] 3.2 g/dL Normal 2.2-4.2 [facility] Comment on above: Performed By: #### L 3410.9992, L100.0100, L500.4050 #### [facility] [address] [place], [address] Glucose [Mass/Vol] 128 mg/dL High 70-99 [facility] Comment on above: Performed By: #### L 3410.9992, L100.0100, L500.4050 #### [facility] [address] [place], [address] Potassium [Moles/Vol] 4.3 mmol/L Normal 3.3-5.1 [facility] Comment on above: Performed By: #### L 3410.9992, L100.0100, L500.4050 #### [facility] [address] [place], [address] Sodium [Moles/Vol] 141 mmol/L Normal 133-145 [facility] Comment on above: Performed By: #### L 3410.9992, L100.0100, L500.4050 #### [facility] [address] [place], [address] T PROT 7.1 g/dL Normal 5.9-8.4 [facility] Comment on above: Performed By: #### L 3410.9992, L100.0100, L500.4050 #### [facility] [address] [place], [address] Urea nitrogen [Mass/Vol] 17 mg/dL Normal 4-19 [facility] Comment on above: Performed By: #### L 3410.9992, L100.0100, L500.4050 #### [facility] [address] [place], [address] Eosinophil percentageOrdered By: Becky Sun on 10-30-2024 Eosinophils/100 WBC (Bld) 2.2 % 0-5 [facility] Erythrocyte distribution wid th ratioOrdered By: Becky Sun on 10-30-2024 Erythrocyte distribution width (RBC) [Ratio] 13.4 % 11.6-14.6 [facility] Erythrocyte distribution wid th standard deviationOrdered By: Becky Sun on 10-30-2024 Erythrocyte distribution width (RBC) [Ratio] 47.2 fl High 35.1-43.9 [facility] Glomerular filtration rate ( GFR) estimation/1.73 sq m using serum, plasma, or whole bOrdered By: Becky Sun on 10-30-2024 GFR/1.73 sq M.predicted among non-blacks MDRD (S/P/Bld) [Vol rate/Area] 86 mL/min/{1.73_m2} >60 [facility] Comment on above: mL/min/1.73m2 CKD-EP I Creatinine Equation (2020) Hematocrit Auto (Bld) [Volum e fraction]Ordered By: Becky Sun on 10-30-2024 Hematocrit (Bld) [Volume fraction] 42.5 % 40-54 [facility] Hemoglobin measurementOrdere d By: Becky Sun on 10-30-2024 Hemoglobin (Bld) [Mass/Vol] 14.2 g/dL 13.0-16.5 [facility] Immature granulocytes/100 WB C Auto (Bld)Ordered By: Becky Sun on 10-30-2024 Immature granulocytes/100 WBC (Bld) 0.300 % 0.0-0.9 [facility] Comment on above: IG% - Immature Granu locytes (promyelocytes, myelocytes and metamyelocytes) > 1% indicates that a LEFT SHIFT is Present. Laboratory - Chemistry and C hemistry - challengeOrdered By: Becky Sun on 10-30-2024 AST [Catalytic activity/Vol] 14 U/L <38 [facility] MCV (mean corpuscular volume ) determinationOrdered By: Becky Sun on 10-30-2024 MCV (RBC) [Entitic vol] 95.7 fL High 80-94 [facility] Mean corpuscular hemoglobin (MCH) determinationOrdered By: Becky Sun on 10-30-2024 MCH (RBC) [Entitic mass] 32.0 pg 27.0-32.0 [facility] Mean corpuscular hemoglobin concentration (MCHC) determinationOrdered By: Becky Sun on 10-30-2024 MCHC (RBC) [Mass/Vol] 33.4 g/dL 32-36 [facility] Mean platelet volume determi nationOrdered By: Becky Sun on 10-30-2024 Platelet mean volume (Bld) [Entitic vol] 9.4 fL 6.2-12.0 [facility] Monocyte percentageOrdered B y: Becky Sun on 10-30-2024 Monocytes/100 WBC (Bld) 6.4 % 0-10 [facility] Neutrophil percentageOrdered By: Becky Sun on 10-30-2024 Neutrophils/100 WBC (Bld) 74.4 % High 47-70 [facility] Nucleated red blood cell per centageOrdered By: Becky Sun on 10-30-2024 Nucleated RBC/100 WBC (Bld) [Ratio] 0 % 0-5 [facility] Platelet countOrdered By: Devorah ttvanessa Sun on 10-30-2024 Platelets (Bld) [#/Vol] 265 10*3/uL 150-450 [facility] Potassium measurement (mass/ volume)Ordered By: Becky Sun on 10-30-2024 Potassium (Unsp spec) [Mass/Vol] 4.3 mmol/L 3.3-5.1 [facility] RBC Auto (Bld) [#/Vol]Ordere d By: Becky Sun on 10-30-2024 RBC (Bld) [#/Vol] 4.44 10*6/uL Low 4.6-6.2 [facility] Serum creatinine measurement (mass/volume)Ordered By: Becky Sun on 10-30-2024 Creatinine [Mass/Vol] 0.93 mg/dL 0.70-1.20 [facility] Serum globulin measurementOr dered By: Becky Sun on 10-30-2024 Globulin (S) [Mass/Vol] 3.2 g/dL 2.2-4.2 [facility] Serum glucose measurement (m ass/volume)Ordered By: Becky Sun on 10-30-2024 Glucose [Mass/Vol] 128 mg/dL High 70-99 [facility] Serum or plasma alanine friedman otransferase (ALT) measurementOrdered By: Becky Sun on 10-30-2024 ALT [Catalytic activity/Vol] 11 U/L <47 [facility] Serum or plasma albumin allen urement (mass/volume)Ordered By: Becky Sun on 10-30-2024 Albumin [Mass/Vol] 3.9 g/dL 3.4-4.8 [facility] Serum or plasma albumin/glob ulin mass ratioOrdered By: Becky Sun on 10-30-2024 Albumin/Globulin [Mass ratio] 1.2 {ratio} 0.9-2.4 [facility] Serum or plasma alkaline clovis sphatase measurementOrdered By: Becky Sun on 10-30-2024 ALP [Catalytic activity/Vol] 85 U/L 40-129 [facility] Serum or plasma calcium allen urement (mass/volume)Ordered By: Becky Sun on 10-30-2024 Calcium [Mass/Vol] 9.2 mg/dL 7.6-11.0 [facility] Serum or plasma urea nitroge n measurement (mass/volume)Ordered By: Becky Sun on 10-30-2024 Urea nitrogen [Mass/Vol] 17 mg/dL 4-19 [facility] Sodium levelOrdered By: Edwin Sun on 10-30-2024 Sodium [Moles/Vol] 141 mmol/L 133-145 [facility] Total proteinOrdered By: Og Sun on 10-30-2024 Protein [Mass/Vol] 7.1 g/dL 5.9-8.4 [facility] White blood cell (WBC) count Ordered By: Becky Corinne on 10-30-2024 WBC (Bld) [#/Vol] 11.9 10*3/uL High 4.4-11.0 [facility] Absolute lymphocyte countOrd ered By: Becky Corinne on 09-29-2024 Lymphocytes Auto (Unsp spec) [#/Vol] 1.74 10*3/uL 0.83-4.51 [facility] Absolute neutrophil countOrd ered By: Becky Corinne on 09-29-2024 Neutrophils (Bld) [#/Vol] 8.1 10*3/uL High 2.0-7.7 [facility] Anion gap in Serum or Plasma Ordered By: Bekcydutch Sun on 09-29-2024 Anion gap [Moles/Vol] 12 mmol/L 5-15 [facility] Automated lymphocyte count a s percentage of total leukocytesOrdered By: Becky Corinne on 09-29-2024 Lymphocytes/100 WBC Auto (Unsp spec) 15.9 % Low 19-41 [facility] BUN/creatinine ratioOrdered By: Becky Corinne on 09-29-2024 Urea nitrogen/Creatinine [Mass ratio] 17.4 mg/mg 10-20 [facility] Basophil percentageOrdered B y: Becky Sun on 09-29-2024 Basophils/100 WBC (Bld) 0.6 % 0-1 [facility] Bilirubin, totalOrdered By: Beckydutch Sun on 09-29-2024 Bilirubin [Mass/Vol] 0.49 mg/dL 0.00-1.30 [facility] CBC W/Diff, Automatedon 09-13 Absolute Lymph 1.74 X10 3/uL Normal 0.83-4.51 [facility] Comment on above: Performed By: #### L 100.0100, L500.4050 #### [facility] [address] [place] [address]. [place], [place], [id number] Absolute Neut 8.1 X10 3/uL High 2.0-7.7 [facility] Comment on above: Performed By: #### L 100.0100, L500.4050 #### [facility] [address] [place], [address] Basophils/100 WBC (Bld) 0.6 % Normal 0-1 [facility] Comment on above: Performed By: #### L 100.0100, L500.4050 #### [facility] [address] [place], [address] Eosinophils/100 WBC (Bld) 0.4 % Normal 0-5 [facility] Comment on above: Performed By: #### L 100.0100, L500.4050 #### [facility] [address] [place], [address] Erythrocyte distribution width (RBC) [Ratio] 13.3 % Normal 11.6-14.6 [facility] Comment on above: Performed By: #### L 100.0100, L500.4050 #### [facility] [address] [place], [address] Hematocrit (Bld) [Volume fraction] 40.8 % Normal 40-54 [facility] Comment on above: Performed By: #### L 100.0100, L500.4050 #### [facility] [address] [place], [address] Hemoglobin (Bld) [Mass/Vol] 13.8 g/dL Normal 13.0-16.5 [facility] Comment on above: Performed By: #### L 100.0100, L500.4050 #### [facility] [address] [place], [address] IG% 0.500 Normal 0.0-0.9 [facility] Comment on above: Result Comment: IG% - Immature Granulocytes (promyelocytes, myelocytes and metamyelocytes) > 1% indicates that a LEFT SHIFT is Present. Performed By: #### L 100.0100, L500.4050 #### [facility] [address] [place], [address] Lymphocytes/100 WBC (Bld) 15.9 % Low 19-41 [facility] Comment on above: Performed By: #### L 100.0100, L500.4050 #### [facility] [address] [place], [address] MCH (RBC) [Entitic mass] 31.9 pg Normal 27.0-32.0 [facility] Comment on above: Performed By: #### L 100.0100, L500.4050 #### [facility] [address] [place], [address] MCHC (RBC) [Mass/Vol] 33.8 g/dL Normal 32-36 [facility] Comment on above: Performed By: #### L 100.0100, L500.4050 #### [facility] [address] [place], [address] MCV (RBC) [Entitic vol] 94.2 fL High 80-94 [facility] Comment on above: Performed By: #### L 100.0100, L500.4050 #### [facility] [address] [place], [address] Monocytes/100 WBC (Bld) 8.1 % Normal 0-10 [facility] Comment on above: Performed By: #### L 100.0100, L500.4050 #### [facility] [address] [place], [address] Neutrophils/100 WBC (Bld) 74.5 % High 47-70 [facility] Comment on above: Performed By: #### L 100.0100, L500.4050 #### [facility] [address] [place], [address] Nucleated RBC (Bld) [#/Vol] 0 10*3/uL Normal 0-5 [facility] Comment on above: Performed By: #### L 100.0100, L500.4050 #### [facility] [address] [place], [address] Platelet mean volume (Bld) [Entitic vol] 9.8 fL Normal 6.2-12.0 [facility] Comment on above: Performed By: #### L 100.0100, L500.4050 #### [facility] [address] [place], [address] Platelets (Bld) [#/Vol] 253 10*3/uL Normal 150-450 [facility] Comment on above: Performed By: #### L 100.0100, L500.4050 #### [facility] [address] [place], [address] RBC (Bld) [#/Vol] 4.33 10*6/uL Low 4.6-6.2 [facility] Comment on above: Performed By: #### L 100.0100, L500.4050 #### [facility] [address] [place], [address] RDW SD 45.9 fl High 35.1-43.9 [facility] Comment on above: Performed By: #### L 100.0100, L500.4050 #### [facility] [address] [place], [address] WBC (Bld) [#/Vol] 10.9 10*3/uL Normal 4.4-11.0 [facility] Comment on above: Performed By: #### L 100.0100, L500.4050 #### [facility] [address] [place], [address] Carbon dioxide, total [Moles /volume] in Central venous bloodOrdered By: Becky Sun on 06-17-2025 CO2 [Moles/Vol] 22.3 mmol/L 21.0-32.0 [facility] Chloride assayOrdered By: Devorah reginaldoclovisbashir Sun on 09-29-2024 Chloride [Moles/Vol] 107 mmol/L 98-108 [facility] Comprehensive Metabolic Prof ilon 09-29-2024 Albumin [Mass/Vol] 3.8 g/dL Normal 3.4-4.8 [facility] Comment on above: Performed By: #### L 100.0100, L500.4050 #### [facility] [address] [place], [address] Albumin/Globulin [Mass ratio] 1.3 {ratio} Normal 0.9-2.4 [facility] Comment on above: Performed By: #### L 100.0100, L500.4050 #### [facility] [address] [place], [address] ALK PHOS 73 U/L Normal 40-129 [facility] Comment on above: Performed By: #### L 100.0100, L500.4050 #### [facility] [address] [place], [address] ALT [Catalytic activity/Vol] 17 U/L Normal <=46 [facility] Comment on above: Performed By: #### L 100.0100, L500.4050 #### [facility] [address] [place], [address] AST [Catalytic activity/Vol] 16 U/L Normal <=37 [facility] Comment on above: Performed By: #### L 100.0100, L500.4050 #### [facility] [address] [place], [address] Bilirubin [Mass/Vol] 0.49 mg/dL Normal 0.00-1.30 [facility] Comment on above: Performed By: #### L 100.0100, L500.4050 #### [facility] [address] [place], [address] BUN/CRE 17.4 RATIO Normal 10-20 [facility] Comment on above: Performed By: #### L 100.0100, L500.4050 #### [facility] [address] [place], [address] Calcium [Mass/Vol] 8.8 mg/dL Normal 7.6-11.0 [facility] Comment on above: Performed By: #### L 100.0100, L500.4050 #### [facility] [address] [place], [address] Chloride [Moles/Vol] 107 mmol/L Normal 98-108 [facility] Comment on above: Performed By: #### L 100.0100, L500.4050 #### [facility] [address] [place], [address] CO2 [Moles/Vol] 22.3 mmol/L Normal 21.0-32.0 [facility] Comment on above: Performed By: #### L 100.0100, L500.4050 #### [facility] [address] [place], [address] Creatinine [Mass/Vol] 0.88 mg/dL Normal 0.70-1.20 [facility] Comment on above: Performed By: #### L 100.0100, L500.4050 #### [facility] [address] [place], [address] GAP 12 Normal 5-15 [facility] Comment on above: Performed By: #### L 100.0100, L500.4050 #### [facility] [address] [place], [address] GFR/1.73 sq M.predicted among non-blacks MDRD (S/P/Bld) [Vol rate/Area] 90 mL/min/{1.73_m2} Normal >60 [facility] Comment on above: Result Comment: mL/m in/1.73m2 CKD-EPI Creatinine Equation (2020) Performed By: #### L 100.0100, L500.4050 #### [facility] [address] [place], [address] Globulin (S) [Mass/Vol] 2.9 g/dL Normal 2.2-4.2 [facility] Comment on above: Performed By: #### L 100.0100, L500.4050 #### [facility] [address] [place], [address] Glucose [Mass/Vol] 135 mg/dL High 70-99 [facility] Comment on above: Performed By: #### L 100.0100, L500.4050 #### [facility] [address] [place], [address] Potassium [Moles/Vol] 3.8 mmol/L Normal 3.3-5.1 [facility] Comment on above: Performed By: #### L 100.0100, L500.4050 #### [facility] [address] [place], [address] Sodium [Moles/Vol] 141 mmol/L Normal 133-145 [facility] Comment on above: Performed By: #### L 100.0100, L500.4050 #### [facility] [address] [place], [address] T PROT 6.7 g/dL Normal 5.9-8.4 [facility] Comment on above: Performed By: #### L 100.0100, L500.4050 #### [facility] [address] [place], [address] Urea nitrogen [Mass/Vol] 15 mg/dL Normal 4-19 [facility] Comment on above: Performed By: #### L 100.0100, L500.4050 #### [facility] [address] [place], [address] Eosinophil percentageOrdered By: Becky Sun on 09-29-2024 Eosinophils/100 WBC (Bld) 0.4 % 0-5 [facility] Erythrocyte distribution wid th ratioOrdered By: Becky Sun on 09-29-2024 Erythrocyte distribution width (RBC) [Ratio] 13.3 % 11.6-14.6 [facility] Erythrocyte distribution wid th standard deviationOrdered By: Becky Sun on 09-29-2024 Erythrocyte distribution width (RBC) [Ratio] 45.9 fl High 35.1-43.9 [facility] Glomerular filtration rate ( GFR) estimation/1.73 sq m using serum, plasma, or whole bOrdered By: Becky Sun on 09-29-2024 GFR/1.73 sq M.predicted among non-blacks MDRD (S/P/Bld) [Vol rate/Area] 90 mL/min/{1.73_m2} >60 [facility] Comment on above: mL/min/1.73m2 CKD-EP I Creatinine Equation (2020) Hematocrit Auto (Bld) [Volum e fraction]Ordered By: Becky Sun on 09-29-2024 Hematocrit (Bld) [Volume fraction] 40.8 % 40-54 [facility] Hemoglobin measurementOrdere d By: Becky Sun on 09-29-2024 Hemoglobin (Bld) [Mass/Vol] 13.8 g/dL 13.0-16.5 [facility] Immature granulocytes/100 WB C Auto (Bld)Ordered By: Becky Sun on 09-29-2024 Immature granulocytes/100 WBC (Bld) 0.500 % 0.0-0.9 [facility] Comment on above: IG% - Immature Granu locytes (promyelocytes, myelocytes and metamyelocytes) > 1% indicates that a LEFT SHIFT is Present. Laboratory - Chemistry and C hemistry - challengeOrdered By: Becky Sun on 09-29-2024 AST [Catalytic activity/Vol] 16 U/L <38 [facility] MCV (mean corpuscular volume ) determinationOrdered By: Becky Sun on 06-17-2025 MCV (RBC) [Entitic vol] 94.2 fL High 80-94 [facility] Mean corpuscular hemoglobin (MCH) determinationOrdered By: Becky Sun on 09-29-2024 MCH (RBC) [Entitic mass] 31.9 pg 27.0-32.0 [facility] Mean corpuscular hemoglobin concentration (MCHC) determinationOrdered By: Becky Sun on 09-29-2024 MCHC (RBC) [Mass/Vol] 33.8 g/dL 32-36 [facility] Mean platelet volume determi nationOrdered By: Becky Sun on 09-29-2024 Platelet mean volume (Bld) [Entitic vol] 9.8 fL 6.2-12.0 [facility] Monocyte percentageOrdered B y: Becky Sun on 09-29-2024 Monocytes/100 WBC (Bld) 8.1 % 0-10 [facility] Neutrophil percentageOrdered By: Becky Sun on 09-29-2024 Neutrophils/100 WBC (Bld) 74.5 % High 47-70 [facility] Nucleated red blood cell per centageOrdered By: Becky Sun on 09-29-2024 Nucleated RBC/100 WBC (Bld) [Ratio] 0 % 0-5 [facility] Platelet countOrdered By: Devorah Sun on 09-29-2024 Platelets (Bld) [#/Vol] 253 10*3/uL 150-450 [facility] Potassium measurement (mass/ volume)Ordered By: Becky Sun on 09-29-2024 Potassium (Unsp spec) [Mass/Vol] 3.8 mmol/L 3.3-5.1 [facility] RBC Auto (Bld) [#/Vol]Ordere d By: Becky Sun on 09-29-2024 RBC (Bld) [#/Vol] 4.33 10*6/uL Low 4.6-6.2 [facility] Serum creatinine measurement (mass/volume)Ordered By: Becky Sun on 09-29-2024 Creatinine [Mass/Vol] 0.88 mg/dL 0.70-1.20 [facility] Serum globulin measurementOr dered By: Becky Sun on 09-29-2024 Globulin (S) [Mass/Vol] 2.9 g/dL 2.2-4.2 [facility] Serum glucose measurement (m ass/volume)Ordered By: Becky Sun on 09-29-2024 Glucose [Mass/Vol] 135 mg/dL High 70-99 [facility] Serum or plasma alanine friedman otransferase (ALT) measurementOrdered By: Becky Sun on 09-29-2024 ALT [Catalytic activity/Vol] 17 U/L <47 [facility] Serum or plasma albumin allen urement (mass/volume)Ordered By: Becky Sun on 09-29-2024 Albumin [Mass/Vol] 3.8 g/dL 3.4-4.8 [facility] Serum or plasma albumin/glob ulin mass ratioOrdered By: Becky Sun on 09-29-2024 Albumin/Globulin [Mass ratio] 1.3 {ratio} 0.9-2.4 [facility] Serum or plasma alkaline clovis sphatase measurementOrdered By: Becky Sun on 09-29-2024 ALP [Catalytic activity/Vol] 73 U/L 40-129 [facility] Serum or plasma calcium allen urement (mass/volume)Ordered By: Becky Sun on 09-29-2024 Calcium [Mass/Vol] 8.8 mg/dL 7.6-11.0 [facility] Serum or plasma urea nitroge n measurement (mass/volume)Ordered By: Becky Sun on 09-29-2024 Urea nitrogen [Mass/Vol] 15 mg/dL 4-19 [facility] Sodium levelOrdered By: Edwin Sun on 09-29-2024 Sodium [Moles/Vol] 141 mmol/L 133-145 [facility] Total proteinOrdered By: Og Sun on 09-29-2024 Protein [Mass/Vol] 6.7 g/dL 5.9-8.4 [facility] White blood cell (WBC) count Ordered By: Becky Sun on 09-29-2024 WBC (Bld) [#/Vol] 10.9 10*3/uL 4.4-11.0 [facility] QUANTTBon 08-07-2024 QFT Criteria Comment Normal [facility] Comment on above: Result Comment: QuantiFERON-TB Gold [...] control for the test. Performed By: #### A DIFF, CMP, GFR, MDW, CBC, ANEU #### [place] [address] QFT Mitogen Value >10.00 Normal [facility] [place] Comment on above: Performed By: #### A DIFF, CMP, GFR, MDW, CBC, ANEU #### [place] [address] QFT Nil Value 0.02 IU/mL Normal [facility] [place] Comment on above: Performed By: #### A DIFF, CMP, GFR, MDW, CBC, ANEU #### [place] [address] QFT TB1 Ag Value 0.02 IU/mL Normal [facility] [place] Comment on above: Performed By: #### A DIFF, CMP, GFR, MDW, CBC, ANEU #### [place] [address] QFT TB2 Ag Value 0.02 IU/mL Normal [facility] [place] Comment on above: Performed By: #### A DIFF, CMP, GFR, MDW, CBC, ANEU #### [place] [address] QFT-TB Gold Plus Clt Inc Negative Normal Negative [facility] [place] Comment on above: Result Comment: No r [...] interferon gamma. Chemiluminescence immunoassay methodology Performed At: [facility] [address] [place], [place] [id number] Danita Mayfield PhD Ph:[phone] Performed By: #### A DIFF, CMP, GFR, MDW, CBC, ANEU #### [address] [address] HBCABon 08-06-2024 Hep B Core Total Ab Negative Normal Negative [facility] Comment on above: Result Comment: [facility] At: [facility] [address] [place], [place] [id number] Danita Mayfield PhD Ph:[phone] Performed By: #### A DIFF, CMP, GFR, MDW, CBC, ANEU #### [place] [address] .Auto Diffon 08-05-2024 Basophil, Absolute 0.1 10 3/mcL Normal 0.0-0.3 [facility] Comment on above: Performed By: #### G FR, CBC, ADIFF, CMP, 761637, ANEU, 465540 ####[place] [address]#### HBSAB, HCV1, HBSAG ####[address] [address] Basophils/100 WBC (Bld) 0.6 % Normal 0.0-2.5 [facility] Comment on above: Performed By: #### G FR, CBC, ADIFF, CMP, 009819, ANEU, 619330 ####[place] [address]#### HBSAB, HCV1, HBSAG ####[address] [address] Eosinophil, Absolute 0.4 10 3/mcL Normal 0.0-0.7 [facility] Comment on above: Performed By: #### G FR, CBC, ADIFF, CMP, 870046, ANEU, 649996 ####[place] [address]#### HBSAB, HCV1, HBSAG ####[address] [address] Eosinophils/100 WBC (Bld) 3.0 % Normal 0.0-6.0 [facility] Comment on above: Performed By: #### G FR, CBC, ADIFF, CMP, 981351, ANEU, 303629 ####[place] [address]#### HBSAB, HCV1, HBSAG ####[address] [address] Lymphocyte, Absolute 2.0 10 3/mcL Normal 0.9-4.3 [facility] Comment on above: Performed By: #### G FR, CBC, ADIFF, CMP, 592756, ANEU, 698584 ####[place] [address]#### HBSAB, HCV1, HBSAG ####[address] [address] Lymphocytes/100 WBC (Bld) 16.7 % Low 20.0-40.0 [facility] [place] Comment on above: Performed By: #### G FR, CBC, ADIFF, CMP, 848478, ANEU, 557624 ####[place] [address]#### HBSAB, HCV1, HBSAG ####[address] [address] Monocyte, Absolute 0.6 10 3/mcL Normal 0.1-1.4 [facility] Comment on above: Performed By: #### G FR, CBC, ADIFF, CMP, 276415, ANEU, 903180 ####[place] [address]#### HBSAB, HCV1, HBSAG ####[address] [address] Monocytes/100 WBC (Bld) 5.2 % Normal 2.0-13.0 [facility] Comment on above: Performed By: #### G FR, CBC, ADIFF, CMP, 920733, ANEU, 479460 ####[place] [address] [place] [address]#### HBSAB, HCV1, HBSAG ####[address] [address] Neutrophils/100 WBC (Bld) 74.5 % Normal 50.0-75.0 [facility] [place] Comment on above: Performed By: #### G FR, CBC, ADIFF, CMP, 507175, ANEU, 596925 ####[place] [address]#### HBSAB, HCV1, HBSAG ####[address] [address] .GFRon 08-05-2024 Estimated Glomerular Filtration Rate 84 ml/min/1.73sqm Normal [facility] [place] Comment on above: Result Comment: Stages of [...] calculate the eGFR results. Performed By: #### G FR, CBC, ADIFF, CMP, 571004, ANEU, 724980 ####[place] [address]#### HBSAB, HCV1, HBSAG ####[address] [address] .NEUABSon 08-05-2024 Neutrophil, Absolute 9.0 10 3/mcL High 2.3-8.1 [facility] Comment on above: Performed By: #### G FR, CBC, ADIFF, CMP, 373975, ANEU, 202678 ####[place] [id number]#### HBSAB, HCV1, HBSAG ####[place] [address] CBCon 08-05-2024 Erythrocyte distribution width (RBC) [Ratio] 13.5 % Normal 11.5-15.5 [facility] [place] Comment on above: Performed By: #### G FR, CBC, ADIFF, CMP, 200600, ANEU, 862581 ####[place] [address]#### HBSAB, HCV1, HBSAG ####[place] [address] Hematocrit (Bld) [Volume fraction] 41.6 % Normal 40.0-52.0 [facility] [place] Comment on above: Performed By: #### G FR, CBC, ADIFF, CMP, 251157, ANEU, 688420 ####[place] [address]#### HBSAB, HCV1, HBSAG ####[place] [address] Hgb 14.1 G/dL Normal 13.0-17.5 [facility] [place] Comment on above: Performed By: #### G FR, CBC, ADIFF, CMP, 638178, ANEU, 571063 ####[place] [address]#### HBSAB, HCV1, HBSAG ####[place] [address] MCH (RBC) [Entitic mass] 32.1 pg Normal 27.0-33.0 [facility] [place] Comment on above: Performed By: #### G FR, CBC, ADIFF, CMP, 159051, ANEU, 486595 ####[place] [address]#### HBSAB, HCV1, HBSAG ####[place] [address] MCHC 34.0 G/dL Normal 32.0-36.0 [facility] [place] Comment on above: Performed By: #### G FR, CBC, ADIFF, CMP, 549922, ANEU, 918927 ####[place] [address]#### HBSAB, HCV1, HBSAG ####[place] [address] MCV (RBC) [Entitic vol] 94.4 fL Normal 81.0-100.0 [facility] Comment on above: Performed By: #### G FR, CBC, ADIFF, CMP, 900040, ANEU, 079309 ####[place] [address]#### HBSAB, HCV1, HBSAG ####[place] [address] Platelet 256 10 3/mcL Normal 150-450 [facility] Comment on above: Performed By: #### G FR, CBC, ADIFF, CMP, 330229, ANEU, 044237 ####[place] [address]#### HBSAB, HCV1, HBSAG ####[place] [address] Platelet mean volume (Bld) [Entitic vol] 7.2 fL Normal 6.4-10.5 [facility] Comment on above: Performed By: #### G FR, CBC, ADIFF, CMP, 877838, ANEU, 747131 ####[place] [address]#### HBSAB, HCV1, HBSAG ####[place] [address] RBC 4.41 10 6/mcL Low 4.50-6.00 [facility] [place] Comment on above: Performed By: #### G FR, CBC, ADIFF, CMP, 135350, ANEU, 783728 ####[place] [address]#### HBSAB, HCV1, HBSAG ####[place] [address] WBC 12.1 10 3/mcL High 4.5-10.8 [facility] [place] Comment on above: Performed By: #### Dari FR, CBC, ADIFF, CMP, 818855, ANEU, 152964 ####[place] [address]#### HBSAB, HCV1, HBSAG ####[place] [address] CMPon 08-05-2024 Albumin Level 3.3 G/dL Low 3.4-4.8 [facility] Comment on above: Performed By: #### Dari FR, CBC, ADIFF, CMP, 882214, ANEU, 105753 ####[place] [address]#### HBSAB, HCV1, HBSAG ####[place] [address] Albumin/Globulin [Mass ratio] 0.8 {ratio} Low 1.1-2.5 [facility] [place] Comment on above: Performed By: #### Dari FR, CBC, ADIFF, CMP, 468949, ANEU, 941166 ####[place] [address]#### HBSAB, HCV1, HBSAG ####[place] [address] ALP [Catalytic activity/Vol] 90 U/L Normal 40-135 [facility] [place] Comment on above: Performed By: #### Dari FR, CBC, ADIFF, CMP, 147155, ANEU, 669057 ####[place] [address]#### HBSAB, HCV1, HBSAG ####[place] [address] ALT [Catalytic activity/Vol] 27 U/L Normal 16-63 [facility] [place] Comment on above: Performed By: #### G FR, CBC, ADIFF, CMP, 157288, ANEU, 781301 ####[place] [address]#### HBSAB, HCV1, HBSAG ####[place] [address] AST [Catalytic activity/Vol] 16 U/L Normal 10-40 [facility] [place] Comment on above: Performed By: #### G FR, CBC, ADIFF, CMP, 704026, ANEU, 405454 ####[place] [address]#### HBSAB, HCV1, HBSAG ####[place] [address] Bili Total 0.5 mg/dL Normal 0.2-1.0 [facility] Comment on above: Result Comment: Use of this assay is not recommended for patients undergoing treatment with eltrombopag due to the potential for falsely elevated results. Performed By: #### G FR, CBC, ADIFF, CMP, 640620, ANEU, 178442 ####[place] [address]#### HBSAB, HCV1, HBSAG ####[place] [address] BUN/Creatinine Ratio 21 ratio Normal 7-27 [facility] Comment on above: Performed By: #### G FR, CBC, ADIFF, CMP, 892330, ANEU, 869472 ####[place] [address]#### HBSAB, HCV1, HBSAG ####[place] [address] Calcium [Mass/Vol] 9.1 mg/dL Normal 8.4-10.2 [facility] Comment on above: Performed By: #### G FR, CBC, ADIFF, CMP, 177015, ANEU, 505471 ####[place] [address]#### HBSAB, HCV1, HBSAG ####[place] [address] Chloride [Moles/Vol] 105 mmol/L Normal 98-107 [facility] Comment on above: Performed By: #### G FR, CBC, ADIFF, CMP, 210586, ANEU, 215832 ####[place] [address]#### HBSAB, HCV1, HBSAG ####[place] [address] CO2 [Moles/Vol] 31 mmol/L Normal 23-31 [facility] Comment on above: Performed By: #### G FR, CBC, ADIFF, CMP, 476155, ANEU, 144208 ####[place] [address]#### HBSAB, HCV1, HBSAG ####[place] [address] Creatinine [Mass/Vol] 0.95 mg/dL Normal 0.67-1.17 [facility] Comment on above: Performed By: #### G FR, CBC, ADIFF, CMP, 017709, ANEU, 633507 ####[place] [address]#### HBSAB, HCV1, HBSAG ####[place] [address] Electrolyte Balance 5.0 mEq/L Normal 4.0-15.0 [facility] Comment on above: Performed By: #### G FR, CBC, ADIFF, CMP, 067195, ANEU, 847753 ####[place] [address]#### HBSAB, HCV1, HBSAG ####[place] [address] Globulin 3.9 G/dL High 1.5-3.8 [facility] Comment on above: Performed By: #### G FR, CBC, ADIFF, CMP, 233902, ANEU, 874217 ####[place] [address]#### HBSAB, HCV1, HBSAG ####[place] [address] Glucose [Mass/Vol] 107 mg/dL Normal 83-110 [facility] Comment on above: Performed By: #### G FR, CBC, ADIFF, CMP, 602780, ANEU, 563356 ####[place] [address]#### HBSAB, HCV1, HBSAG ####[address] [address] Potassium [Moles/Vol] 4.3 mmol/L Normal 3.5-5.1 [facility] Comment on above: Performed By: #### G FR, CBC, ADIFF, CMP, 531025, ANEU, 887813 ####[place] [address]#### HBSAB, HCV1, HBSAG ####[place] [address] Sodium [Moles/Vol] 141 mmol/L Normal 136-145 [facility] Comment on above: Performed By: #### G FR, CBC, ADIFF, CMP, 595126, ANEU, 502796 ####[place] [address]#### HBSAB, HCV1, HBSAG ####[place] [address] Total Protein 7.2 G/dL Normal 6.4-8.2 [facility] Comment on above: Performed By: #### G FR, CBC, ADIFF, CMP, 664651, ANEU, 152216 ####[place] [address]#### HBSAB, HCV1, HBSAG ####[place] [address] Urea nitrogen [Mass/Vol] 20 mg/dL High 7-18 [facility] Comment on above: Performed By: #### G FR, CBC, ADIFF, CMP, [id number], ANEU, [id number] ####[place] [id number]#### HBSAB, HCV1, HBSAG ####[place] [address] HBSABon 08-05-2024 Hep B Surf Ab <3.1 Low >=10.0 [facility] [place] Comment on above: Result Comment: 0 to [...] WHO International Reference Preparation. Performed By: #### A DIFF, CMP, GFR, MDW, CBC, ANEU #### [place] [id number] HBSAGon 08-05-2024 Hep B Surf Ag Non-Reactive Normal Non-Reactiv [facility] Comment on above: Performed By: #### G FR, CBC, ADIFF, CMP, [id number], ANEU, [id number] ####[place] [address]#### HBSAB, HCV1, HBSAG ####[place] [address] HCVon 08-05-2024 Hep C Ab Non-Reactive Normal Non-Reactiv [facility] Comment on above: Performed By: #### A DIFF, CMP, GFR, MDW, CBC, ANEU #### [place] [address] Hep C Ab Int [facility] Comment on above: Result Comment: Nonr eactive: Samples with a value < 0.80 are considered nonreactive (negative) for antibodies to HCV. A negative test result does not exclude the possibility of exposure to or infection with HCV. HCV antibodies may be undetectable in some stages of the infection and in some clinical conditions. See Interp Performed By: #### A DIFF, CMP, GFR, MDW, CBC, ANEU #### [place] [address] LABORATORYOrdered By: SYSTEM SYSTEM on 08-05-2024 Albumin [...] Qn (S) mIU/mL Low >=10.0 mIU/m L ADM SS Comment on above: Interpretive Data: [...] Non-Reactive (08/05/24 9:35 AM) Normal Non-Reactiv e ADM SS HCV Ab IA Ql Non-Reactive (08/05/24 9:35 AM) Normal Non-Reactiv e ADM SS HCV Ab IA Ql Nonreactive: Samples with a value < 0.80 are considered nonreactive (negative) for antibodies to HCV. A negative test result does not exclude the possibility of exposure to or infection with HCV. HCV antibodies may be undetectable in some stages of the infection and in some clinical conditions. 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 No complaints of fever, chills, sweats. MRDD patient under the care of the launch [employer] police who accompanies patient today. No other complaints at this time. ROS Const Constitutional: No other (As above) Exam Const General: cooperative, healthy appearing and no acute distress Nutritional Appearance: average body habitus Orientation: alert and awake HENMT Head: normal to inspection Ears: hearing grossly [...] worsen or any other concerns develop. Patient's [employer] states acknowledging understanding all the above. Coding Level of Care Code Off vis,est,level 3 Assessment and Plan Assessment and Plan Medications: New (more content not included)... Normal [facility] .Auto Diffon 06-07-2024 Basophil, Absolute 0.1 10 3/mcL Normal 0.0-0.2 [facility] Comment on above: Performed By: #### A DIFF, CMP, GFR, MDW, CBC, ANEU #### [address] [address] Basophils/100 WBC (Bld) 0.6 % Normal 0.0-2.5 [facility] Comment on above: Performed By: #### A DIFF, CMP, GFR, MDW, CBC, ANEU #### [address] [address] Eosinophil, Absolute 0.1 10 3/mcL Normal 0.0-0.7 [facility] Comment on above: Performed By: #### A DIFF, CMP, GFR, MDW, CBC, ANEU #### [address] [address] Eosinophils/100 WBC (Bld) 1.2 % Normal 0.0-7.0 [facility] Comment on above: Performed By: #### A DIFF, CMP, GFR, MDW, CBC, ANEU #### [address] [address] Lymphocyte, Absolute 1.4 10 3/mcL Normal 0.9-4.3 [facility] Comment on above: Performed By: #### A DIFF, CMP, GFR, MDW, CBC, ANEU #### [address] [address] Lymphocytes/100 WBC (Bld) 13.4 % Low 20.0-40.0 [facility] Comment on above: Performed By: #### A DIFF, CMP, GFR, MDW, CBC, ANEU #### [address] [address] Monocyte, Absolute 0.9 10 3/mcL Normal 0.1-1.4 [facility] Comment on above: Performed By: #### A DIFF, CMP, GFR, MDW, CBC, ANEU #### [address] [address] Monocytes/100 WBC (Bld) 8.6 % Normal 2.0-13.0 [facility] Comment on above: Performed By: #### A DIFF, CMP, GFR, MDW, CBC, ANEU #### [address] [address] Neutrophils/100 WBC (Bld) 76.2 % High 50.0-75.0 [facility] Comment on above: Performed By: #### A DIFF, CMP, GFR, MDW, CBC, ANEU #### [address] [address] .GFRon 06-07-2024 Estimated Glomerular Filtration Rate 73 ml/min/1.73sqm Normal [facility] Comment on above: Result Comment: Stages of [...] calculate the eGFR results. Performed By: #### A DIFF, CMP, GFR, MDW, CBC, ANEU #### [address] [address] .MDWon 06-07-2024 Monocyte Distribution Width 20.06 High 0.00-20.00 [facility] Comment on above: Result Comment: For adults in ED, MDW>20.0 may be associated with a higher risk of sepsis during the first 12hrs of hospital admission Performed By: #### A DIFF, CMP, GFR, MDW, CBC, ANEU #### [address] [address] .NEUABSon 06-07-2024 Neutrophil, Absolute 7.8 10 3/mcL Normal 2.3-8.1 [facility] Comment on above: Performed By: #### A DIFF, CMP, GFR, MDW, CBC, ANEU #### [place] [address] CBCon 06-07-2024 Erythrocyte distribution width (RBC) [Ratio] 14.3 % Normal 11.5-15.5 [facility] Comment on above: Performed By: #### A DIFF, CMP, GFR, MDW, CBC, ANEU #### [place] [address] Hematocrit (Bld) [Volume fraction] 43.2 % Normal 40.0-52.0 [facility] Comment on above: Performed By: #### A DIFF, CMP, GFR, MDW, CBC, ANEU #### [place] [address] Hgb 14.7 G/dL Normal 13.0-17.5 [facility] Comment on above: Performed By: #### A DIFF, CMP, GFR, MDW, CBC, ANEU #### [address] [address] MCH (RBC) [Entitic mass] 32.2 pg Normal 27.0-33.0 [facility] Comment on above: Performed By: #### A DIFF, CMP, GFR, MDW, CBC, ANEU #### [place] [address] MCHC 34.0 G/dL Normal 32.0-36.0 [facility] Comment on above: Performed By: #### A DIFF, CMP, GFR, MDW, CBC, ANEU #### [place] [address] MCV (RBC) [Entitic vol] 94.6 fL Normal 81.0-100.0 [facility] Comment on above: Performed By: #### A DIFF, CMP, GFR, MDW, CBC, ANEU #### [place] [address] Platelet 227 10 3/mcL Normal 150-450 [facility] Comment on above: Performed By: #### A DIFF, CMP, GFR, MDW, CBC, ANEU #### [address] [address] Platelet mean volume (Bld) [Entitic vol] 7.7 fL Normal 6.4-10.5 [facility] Comment on above: Performed By: #### A DIFF, CMP, GFR, MDW, CBC, ANEU #### [place] [address] RBC 4.57 10 6/mcL Normal 4.50-6.00 [facility] Comment on above: Performed By: #### A DIFF, CMP, GFR, MDW, CBC, ANEU #### [place] [address] WBC 10.2 10 3/mcL Normal 4.5-10.8 [facility] Comment on above: Performed By: #### A DIFF, CMP, GFR, MDW, CBC, ANEU #### [place] [address] CMPon 06-07-2024 Albumin Level 3.7 G/dL Normal 3.4-4.8 [facility] Comment on above: Performed By: #### A DIFF, CMP, GFR, MDW, CBC, ANEU #### [place] [id number] Albumin/Globulin [Mass ratio] 1.1 {ratio} Normal 1.1-2.5 [facility] Comment on above: Performed By: #### A DIFF, CMP, GFR, MDW, CBC, ANEU #### [address] [address] ALP [Catalytic activity/Vol] 84 U/L Normal 40-135 [facility] Comment on above: Performed By: #### A DIFF, CMP, GFR, MDW, CBC, ANEU #### [address] [address] ALT [Catalytic activity/Vol] 29 U/L Normal 16-63 [facility] Comment on above: Performed By: #### A DIFF, CMP, GFR, MDW, CBC, ANEU #### [address] [address] AST [Catalytic activity/Vol] 11 U/L Normal 10-40 [facility] Comment on above: Performed By: #### A DIFF, CMP, GFR, MDW, CBC, ANEU #### [address] [address] Bili Total 0.4 mg/dL Normal 0.2-1.0 [facility] Comment on above: Result Comment: Use of this assay is not recommended for patients undergoing treatment with eltrombopag due to the potential for falsely elevated results. Performed By: #### A DIFF, CMP, GFR, MDW, CBC, ANEU #### [address] [address] BUN/Creatinine Ratio 17 ratio Normal 7-27 [facility] Comment on above: Performed By: #### A DIFF, CMP, GFR, MDW, CBC, ANEU #### [address] [address] Calcium [Mass/Vol] 9.0 mg/dL Normal 8.4-10.2 [facility] Comment on above: Performed By: #### A DIFF, CMP, GFR, MDW, CBC, ANEU #### [address] [address] Chloride [Moles/Vol] 103 mmol/L Normal 98-107 [facility] Comment on above: Performed By: #### A DIFF, CMP, GFR, MDW, CBC, ANEU #### [address] [address] CO2 [Moles/Vol] 23 mmol/L Normal 23-31 [facility] Comment on above: Performed By: #### A DIFF, CMP, GFR, MDW, CBC, ANEU #### [address] [address] Creatinine [Mass/Vol] 1.07 mg/dL Normal 0.70-1.30 [facility] Comment on above: Result Comment: Test ing performed on Siemens Dimension EXL analyzer using a modified kinetic Colleen technique. Performed By: #### A DIFF, CMP, GFR, MDW, CBC, ANEU #### [address] [address] Electrolyte Balance 12.0 mEq/L Normal 4.0-15.0 [facility] Comment on above: Performed By: #### A DIFF, CMP, GFR, MDW, CBC, ANEU #### [address] [address] Globulin 3.4 G/dL Normal 1.5-3.8 [facility] Comment on above: Performed By: #### A DIFF, CMP, GFR, MDW, CBC, ANEU #### [address] [address] Glucose [Mass/Vol] 182 mg/dL High 83-110 [facility] Comment on above: Performed By: #### A DIFF, CMP, GFR, MDW, CBC, ANEU #### [address] [address] Potassium [Moles/Vol] 3.9 mmol/L Normal 3.5-5.1 [facility] Comment on above: Performed By: #### A DIFF, CMP, GFR, MDW, CBC, ANEU #### [address] [address] Sodium [Moles/Vol] 138 mmol/L Normal 136-145 [facility] Comment on above: Performed By: #### A DIFF, CMP, GFR, MDW, CBC, ANEU #### [address] [address] Total Protein 7.1 G/dL Normal 6.4-8.2 [facility] Comment on above: Performed By: #### A DIFF, CMP, GFR, MDW, CBC, ANEU #### [address] [address] Urea nitrogen [Mass/Vol] 18 mg/dL Normal 7-18 [facility] Comment on above: Performed By: #### A DIFF, CMP, GFR, MDW, CBC, ANEU #### [place] [address] [place], [place] [address] CT HEAD OR BRAIN W/O CONTRAS Ton [...] 06/07/2024 2:19:30 PM Ordering Provider: SAMIA Jules [facility] LABORATORYOrdered By: SYSTEM SYSTEM on 06-07-2024 Albumin [...] 06/07/2024 2:16:33 PM Ordering Provider: SAMIA Jules [facility] Urgent Care Visit Reporton 0 05-26-2024 Urgent Care Visit Report [facility] [address], [address] [place], [place] [id number] OFFICE VISIT Date of Service: 05/26/24 MR#: [id number] Acct: [id number] Name: RENNY RUSSO Rep #: [id number] : 1950 Provider: PENNY Ayala Age/Sex: 74/M Location: [facility] Status: Signed Intake Vital Signs 04/22/24 14:09 [...] here for right eye concern began today. [facility] Medical History (Updated 05/26/24 @ 15:42 by [...] of eye globe pain or vision changes [employer] so states. 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 No complaints of fever, chills, sweats. MRDD patient under the care of the launch commander [employer] police who accompanies patient today. No other complaints at this time. ROS Const Constitutional: No other (As above) Exam Const General: cooperative, healthy appearing and no acute distress Nutritional Appearance: average body habitus Orientation: alert and awake HENMT Head: normal to inspection Ears: hearing grossly [...] sooner glenna (more content not included)... Normal [facility] Basic Metabolic Profile (BMP )on 04-22-2024 BUN/CRE 18.8 RATIO Normal 10-20 [facility] Comment on above: Performed By: #### L 500.2500, L100.0100 ####[facility] [address] [place], [address] CA,Total 8.4 mg/dL Low 8.5-10.1 [facility] Comment on above: Performed By: #### L 500.2500, L100.0100 ####[facility] [address] [place], [address] Chloride [Moles/Vol] 109 mmol/L High 98-107 [facility] Comment on above: Performed By: #### L 500.2500, L100.0100 ####[facility] [address] [place], [address] CO2 [Moles/Vol] 27.0 mmol/L Normal 21.0-32.0 [facility] Comment on above: Performed By: #### L 500.2500, L100.0100 ####[facility] [address] [place], [address] Creatinine [Mass/Vol] 0.90 mg/dL Normal 0.70-1.30 [facility] Comment on above: Result Comment: The validity of the calculated GFR GFRAA in patients over 70 years has not been determined. Clinical correlation is essential. Performed By: #### L 500.2500, L100.0100 ####[facility] [address] [place], [address] ECRCL 78.63 ml/min Normal [facility] Comment on above: Performed By: #### L 500.2500, L100.0100 ####[facility] [address] [place], [address] EST GFR - AA 105 mL/min Normal >60 [facility] Comment on above: Result Comment: Afri can Swazi GFR Calc Performed By: #### L 500.2500, L100.0100 ####[facility] [address] [place], [address] GAP 5 Normal 5-15 [facility] Comment on above: Performed By: #### L 500.2500, L100.0100 ####[facility] [address] [place], [address] GFR/1.73 sq M.predicted among non-blacks MDRD (S/P/Bld) [Vol rate/Area] 87 mL/min/{1.73_m2} Normal >60 [facility] Comment on above: Result Comment: Non- GFR Calc Performed By: #### L 500.2500, L100.0100 ####[facility] [address] [place], [address] Glucose [Mass/Vol] 129 mg/dL High 74-106 [facility] Comment on above: Result Comment: Fast ing Glucose result greater than or equal to 126 mg/dL suggests DIABETES MELLITUS per A.D.A. criteria. Performed By: #### L 500.2500, L100.0100 ####[facility] [address] [place], [address] Potassium [Moles/Vol] 4.1 mmol/L Normal 3.5-5.1 [facility] Comment on above: Performed By: #### L 500.2500, L100.0100 ####[facility] [address] [place], [address] Sodium [Moles/Vol] 140 mmol/L Normal 136-145 [facility] Comment on above: Performed By: #### L 500.2500, L100.0100 ####[facility] [address] [place], [address] Urea nitrogen [Mass/Vol] 17 mg/dL Normal 7-18 [facility] Comment on above: Performed By: #### L 500.2500, L100.0100 ####[facility] [address] [place], [address] CBC W/Diff, Automatedon 01-0 8-2025 Absolute Lymph 1.80 X10 3/uL Normal 0.83-4.51 [facility] Comment on above: Performed By: #### L 500.2500, L100.0100 ####[facility] [address] [place], [address] Absolute Neut 4.6 X10 3/uL Normal 2.0-7.7 [facility] Comment on above: Performed By: #### L 500.2500, L100.0100 ####[facility] [address] [place], [address] Basophils/100 WBC (Bld) 1.1 % High 0-1 [facility] Comment on above: Performed By: #### L 500.2500, L100.0100 ####[facility] [address] [place], [address] Eosinophils/100 WBC (Bld) 6.9 % High 0-5 [facility] Comment on above: Performed By: #### L 500.2500, L100.0100 ####[facility] [address] [place], [address] Erythrocyte distribution width (RBC) [Ratio] 13.2 % Normal 11.6-14.6 [facility] Comment on above: Performed By: #### L 500.2500, L100.0100 ####[facility] [address] [place], [address] Hematocrit (Bld) [Volume fraction] 40.6 % Normal 40-54 [facility] Comment on above: Performed By: #### L 500.2500, L100.0100 ####[facility] [address] [place], [address] Hemoglobin (Bld) [Mass/Vol] 13.9 g/dL Normal 13.0-16.5 [facility] Comment on above: Performed By: #### L 500.2500, L100.0100 ####[facility] [address] [place], [address] IG% 0.300 Normal 0.0-0.9 [facility] Comment on above: Result Comment: IG% - Immature Granulocytes (promyelocytes, myelocytes and metamyelocytes) > 1% indicates that a LEFT SHIFT is Present. Performed By: #### L 500.2500, L100.0100 ####[facility] [address] [place], [address] Lymphocytes/100 WBC (Bld) 23.9 % Normal 19-41 [facility] Comment on above: Performed By: #### L 500.2500, L100.0100 ####[facility] [address] [place], [address] MCH (RBC) [Entitic mass] 32.6 pg High 27.0-32.0 [facility] Comment on above: Performed By: #### L 500.2500, L100.0100 ####[facility] [address] [place], [address] MCHC (RBC) [Mass/Vol] 34.2 g/dL Normal 32-36 [facility] Comment on above: Performed By: #### L 500.2500, L100.0100 ####[facility] [address] [place], [address] MCV (RBC) [Entitic vol] 95.3 fL High 80-94 [facility] Comment on above: Performed By: #### L 500.2500, L100.0100 ####[facility] [address] [place], [address] Monocytes/100 WBC (Bld) 6.8 % Normal 0-10 [facility] Comment on above: Performed By: #### L 500.2500, L100.0100 ####[facility] [address] [place], [address] Neutrophils/100 WBC (Bld) 61.0 % Normal 47-70 [facility] Comment on above: Performed By: #### L 500.2500, L100.0100 ####[facility] [address] [place], [address] Nucleated RBC (Bld) [#/Vol] 0 10*3/uL Normal 0-5 [facility] Comment on above: Performed By: #### L 500.2500, L100.0100 ####[facility] [address] [place], [address] Platelet mean volume (Bld) [Entitic vol] 9.4 fL Normal 6.2-12.0 [facility] Comment on above: Performed By: #### L 500.2500, L100.0100 ####[facility] [address] [place], [address] Platelets (Bld) [#/Vol] 244 10*3/uL Normal 150-450 [facility] Comment on above: Performed By: #### L 500.2500, L100.0100 ####[facility] [address] [place], [address] RBC (Bld) [#/Vol] 4.26 10*6/uL Low 4.6-6.2 [facility] Comment on above: Performed By: #### L 500.2500, L100.0100 ####[facility] [address] [place], [address] RDW SD 45.5 fl High 35.1-43.9 [facility] Comment on above: Performed By: #### L 500.2500, L100.0100 ####[facility] [address] [place], [address] WBC (Bld) [#/Vol] 7.5 10*3/uL Normal 4.4-11.0 [facility] Comment on above: Performed By: #### L 500.2500, L100.0100 ####[facility] [address] [facility] [place], [address] Emergency Department Summary on 04-22-2024 Emergency Department Summary [facility] Medical Records Department [address] [place] [address] Emergency Department Summary 04/22/24 MR#: [id number] Acct: [id number] Name: RENNY RUSSO Rep #: [id number] : 1950 74 From: Jorje Alberto MD PCP: Dr. Kim Hutchinson MD Status:REG ER Location: ED ADDENDUM by Dr. Jorje Alberto MD on 04/22/24 at 1721 I spoke with infectious disease. Both of them and IR comfortable the patient being discharged home with outpatient follow-up with both ID and dermatology. I spoke to the patient and the fuel system maintenance worker. They understand that this does not [...] Chief Complaint: Wound Informant: patient and other (residential staff member.) Onset/Context/Timing Onset: Month(s) Context: Gradual Onset Timing: Continuous Current Severity: Mild Maximum Severity: Mild Narrative Narrative: 74-year-old male history of MRSA, anxiety and diabetes. Patient lives [place] [facility]. He has had sores on his upper and lower extremities for 2 months. He has been on different courses of antibiotics. Currently he is on both doxycycline and Keflex. Has had a history of MRSA. Basically this has not been getting better. The [place] [facility] wanted him further evaluated. He was at another ER recently and was discharged home. Patient's not been ill. He has not had a fever. He has also been evaluated by ophthalmology multiple times due to redness below his right eye. He has been on antibiotics and ointments for that that is also not improving Prior similar symptoms: Yes Recent Illness/Hospitalization : No PFSH [facility] Medical History MRSA (methicillin resistant staph aureus) culture positive Tobacco use Fatigue Hyperlipidemia OAB (overactive bladder) SYED (generalized anxiety disorder) Intellectual disability Home Medications ???Medication ???Instructions ???Recorded ???Last Taken ???Type buspirone 10 mg tablet 20 mg PO TID 05/13/13 Unknown History gabapentin 100 mg capsule 100 [...] edema. Sarai (more content not included)... Normal [facility] .Auto Diffon 2024 Basophil, Absolute 0.2 10 3/mcL Normal 0.0-0.2 [facility] Comment on above: Performed By: #### A DIFF, CBC, GFR, BMP, MDW, ANEU #### [address] [address] Basophils/100 WBC (Bld) 1.3 % Normal 0.0-2.5 [facility] Comment on above: Performed By: #### A DIFF, CBC, GFR, BMP, MDW, ANEU #### [address] [address] Eosinophil, Absolute 0.6 10 3/mcL Normal 0.0-0.7 [facility] Comment on above: Performed By: #### A DIFF, CBC, GFR, BMP, MDW, ANEU #### [address] [address] Eosinophils/100 WBC (Bld) 4.9 % Normal 0.0-7.0 [facility] Comment on above: Performed By: #### A DIFF, CBC, GFR, BMP, MDW, ANEU #### [address] [address] Lymphocyte, Absolute 2.5 10 3/mcL Normal 0.9-4.3 [facility] Comment on above: Performed By: #### A DIFF, CBC, GFR, BMP, MDW, ANEU #### [address] [address] Lymphocytes/100 WBC (Bld) 21.7 % Normal 20.0-40.0 [facility] Comment on above: Performed By: #### A DIFF, CBC, GFR, BMP, MDW, ANEU #### [address] [address] Monocyte, Absolute 0.6 10 3/mcL Normal 0.1-1.4 [facility] Comment on above: Performed By: #### A DIFF, CBC, GFR, BMP, MDW, ANEU #### [address] [address] Monocytes/100 WBC (Bld) 5.1 % Normal 2.0-13.0 [facility] Comment on above: Performed By: #### A DIFF, CBC, GFR, BMP, MDW, ANEU #### [address] [address] Neutrophils/100 WBC (Bld) 67.0 % Normal 50.0-75.0 [facility] [facility] [place] Comment on above: Performed By: #### A DIFF, CBC, GFR, BMP, MDW, ANEU #### [address] [address] .GFRon 2024 GFR 90 ml/min/1.73sqm Normal [facility] [place] Comment on above: Result Comment: GFR Population [...] 15 mL/min/1.73 square meters Performed By: #### A DIFF, CBC, GFR, BMP, MDW, ANEU ####[place] [address] [place], [place] [address] GFR Non- 74 ml/min/1.73sqm Normal [facility] [place] Comment on above: Result Comment: GFR Population [...] 15 mL/min/1.73 square meters Performed By: #### A DIFF, CBC, GFR, BMP, MDW, ANEU ####[place] [place], [place] [address] .MDWon 2024 Monocyte Distribution Width 16.33 Normal 0.00-20.00 [facility] [place] Comment on above: Result Comment: For ED adult patients suspected of sepsis, MDW<=20.0 does not rule out sepsis or risk of sepsis Performed By: #### A DIFF, CBC, GFR, BMP, MDW, ANEU ####[facility] [place], [place] [address] .NEUABSon 2024 Neutrophil, Absolute 7.6 10 3/mcL Normal 2.3-8.1 [facility] Comment on above: Performed By: #### A DIFF, CBC, GFR, BMP, MDW, ANEU ####[place] [address] [place], [place] [address] BMPon 2024 BUN/Creatinine Ratio 22 ratio Normal 7-27 [facility] Comment on above: Performed By: #### A DIFF, CBC, GFR, BMP, MDW, ANEU ####[address] [address] Calcium [Mass/Vol] 9.3 mg/dL Normal 8.4-10.2 [facility] Comment on above: Performed By: #### A DIFF, CBC, GFR, BMP, MDW, ANEU ####[address] [address] Chloride [Moles/Vol] 103 mmol/L Normal 98-107 [facility] Comment on above: Performed By: #### A DIFF, CBC, GFR, BMP, MDW, ANEU ####[place] [address] CO2 [Moles/Vol] 29 mmol/L Normal 23-31 [facility] [place] Comment on above: Performed By: #### A DIFF, CBC, GFR, BMP, MDW, ANEU ####[place] [address] Electrolyte Balance 9.0 mEq/L Normal 4.0-15.0 [facility] Comment on above: Performed By: #### A DIFF, CBC, GFR, BMP, MDW, ANEU ####[address] [address] Glucose [Mass/Vol] 84 mg/dL Normal 83-110 [facility] Comment on above: Performed By: #### A DIFF, CBC, GFR, BMP, MDW, ANEU ####[address] [address] Potassium [Moles/Vol] 4.1 mmol/L Normal 3.5-5.1 [facility] Comment on above: Performed By: #### A DIFF, CBC, GFR, BMP, MDW, ANEU ####[place] [address] Sodium [Moles/Vol] 141 mmol/L Normal 136-145 [facility] Comment on above: Performed By: #### A DIFF, CBC, GFR, BMP, MDW, ANEU ####[address] [address] Urea nitrogen [Mass/Vol] 22 mg/dL High 7-18 [facility] [place] Comment on above: Performed By: #### A DIFF, CBC, GFR, BMP, MDW, ANEU ####[address] [address] Creatinine [Mass/Vol] 0.99 mg/dL Normal 0.70-1.30 [facility] Comment on above: Result Comment: Test ing performed on We Dimension EXL analyzer using a modified kinetic Colleen technique. Performed By: #### A DIFF, CBC, GFR, BMP, MDW, ANEU ####[address] [address] CBCon 2024 Erythrocyte distribution width (RBC) [Ratio] 13.7 % Normal 11.5-15.5 [facility] [place] Comment on above: Performed By: #### A DIFF, CBC, GFR, BMP, MDW, ANEU #### [address] [address] Hematocrit (Bld) [Volume fraction] 44.3 % Normal 40.0-52.0 [facility] [place] Comment on above: Performed By: #### A DIFF, CBC, GFR, BMP, MDW, ANEU #### [address] [address] Hgb 15.2 G/dL Normal 13.0-17.5 [facility] [place] Comment on above: Performed By: #### A DIFF, CBC, GFR, BMP, MDW, ANEU #### [address] [address] MCH (RBC) [Entitic mass] 32.3 pg Normal 27.0-33.0 [facility] [place] Comment on above: Performed By: #### A DIFF, CBC, GFR, BMP, MDW, ANEU #### [address] [address] MCHC 34.2 G/dL Normal 32.0-36.0 [facility] [place] Comment on above: Performed By: #### A DIFF, CBC, GFR, BMP, MDW, ANEU #### [address] [address] MCV (RBC) [Entitic vol] 94.4 fL Normal 81.0-100.0 [facility] Comment on above: Performed By: #### A DIFF, CBC, GFR, BMP, MDW, ANEU #### [address] [address] Platelet 286 10 3/mcL Normal 150-450 [facility] [place] Comment on above: Performed By: #### A DIFF, CBC, GFR, BMP, MDW, ANEU #### [address] [address] Platelet mean volume (Bld) [Entitic vol] 7.1 fL Normal 6.4-10.5 [facility] [place] Comment on above: Performed By: #### A DIFF, CBC, GFR, BMP, MDW, ANEU #### [address] [address] RBC 4.69 10 6/mcL Normal 4.50-6.00 [facility] [place] Comment on above: Performed By: #### A DIFF, CBC, GFR, BMP, MDW, ANEU #### [address] [address] WBC 11.3 10 3/mcL High 4.5-10.8 [facility] [place] Comment on above: Performed By: #### A DIFF, CBC, GFR, BMP, MDW, ANEU #### [address] [address] [address] ORBIT W/ CONTRASTon 04-20 CT ORBIT [...] 2024 8:37:58 PM Ordering Provider: BRADLEY Jules [facility] [place] LABORATORYOrdered By: SYSTEM SYSTEM on 2024 Basophils [...] S Vancomycin Islt BRET 1 S Normal [facility] Comment on above: Performed By: #### M 100.2000, M100.3000 #### [facility] [address] [place], [place], [address] Gram Stainon 04-01-2024 GS Gram Stain No organisms seen No cells seen Normal [facility] Comment on above: Performed By: #### M 100.2000, M100.3000 #### [facility] [address] [place], [address] CNOVon 02-06-2024 CNOV Office Visit (UCWSTR ) RENNY RUSSO ([id number]) 1950 M Date Time Provider Department 02/06/24 11:15 AM JUMANA SOLIZ [facility] During your visit today, we recorded the following information about you: Respiration Weight 16/minute 77.1 kg Jumana Soliz APRN.SEED TESTER 02/06/2024 11:35 AM Signed CONJUNCTIVITIS GENERAL INFORMATION: [...] over 100.5 F (38 C). Jumana Soliz APRN.SEED TESTER 02/06/2024 12:10 PM Signed Subjective HPI HPI [...] not taking: Reported on 02/06/2024) timolol/dorzolamide/lat anop/PF (PFDYMCP-SAAOUGYEIP-WOA ANOP,PF,) 0.5-2-0.005 % drop Use in eyes. (Patient not taking: Reported on 02/06/2024) QUEtia (more content not included)... Normal [facility] CBC W/Diff, Automatedon 01-13 Absolute Lymph 2.20 X10 3/uL Normal 0.83-4.51 [facility] Comment on above: Performed By: #### L 503.0105, L501.9910, L500.4050, L501.9520, L500.4100, L100.0100 ####[facility] [address] [place], [address] Absolute Neut 6.4 X10 3/uL Normal 2.0-7.7 [facility] Comment on above: Performed By: #### L 503.0105, L501.9910, L500.4050, L501.9520, L500.4100, L100.0100 ####[facility] [address] [place], [address] Basophils/100 WBC (Bld) 0.9 % Normal 0-1 [facility] Comment on above: Performed By: #### L 503.0105, L501.9910, L500.4050, L501.9520, L500.4100, L100.0100 ####[facility] [address] [place], [address] Eosinophils/100 WBC (Bld) 4.9 % Normal 0-5 [facility] Comment on above: Performed By: #### L 503.0105, L501.9910, L500.4050, L501.9520, L500.4100, L100.0100 ####[facility] [address] [place], [address] Erythrocyte distribution width (RBC) [Ratio] 13.5 % Normal 11.6-14.6 [facility] Comment on above: Performed By: #### L 503.0105, L501.9910, L500.4050, L501.9520, L500.4100, L100.0100 ####[facility] [address] [place], [address] Hematocrit (Bld) [Volume fraction] 41.5 % Normal 40-54 [facility] Comment on above: Performed By: #### L 503.0105, L501.9910, L500.4050, L501.9520, L500.4100, L100.0100 ####[facility] [address] [place], [address] Hemoglobin (Bld) [Mass/Vol] 13.7 g/dL Normal 13.0-16.5 [facility] Comment on above: Performed By: #### L 503.0105, L501.9910, L500.4050, L501.9520, L500.4100, L100.0100 ####[facility] [address] [place], [address] IG% 0.300 Normal 0.0-0.9 [facility] Comment on above: Result Comment: IG% - Immature Granulocytes (promyelocytes, myelocytes and metamyelocytes) > 1% indicates that a LEFT SHIFT is Present. Performed By: #### L 503.0105, L501.9910, L500.4050, L501.9520, L500.4100, L100.0100 ####[facility] [address] [place], [address] Lymphocytes/100 WBC (Bld) 22.3 % Normal 19-41 [facility] Comment on above: Performed By: #### L 503.0105, L501.9910, L500.4050, L501.9520, L500.4100, L100.0100 ####[facility] [address] [place], [address] MCH (RBC) [Entitic mass] 31.4 pg Normal 27.0-32.0 [facility] Comment on above: Performed By: #### L 503.0105, L501.9910, L500.4050, L501.9520, L500.4100, L100.0100 ####[facility] [address] [place], [address] MCHC (RBC) [Mass/Vol] 33.0 g/dL Normal 32-36 [facility] Comment on above: Performed By: #### L 503.0105, L501.9910, L500.4050, L501.9520, L500.4100, L100.0100 ####[facility] [address] [place], [address] MCV (RBC) [Entitic vol] 95.2 fL High 80-94 [facility] Comment on above: Performed By: #### L 503.0105, L501.9910, L500.4050, L501.9520, L500.4100, L100.0100 ####[facility] [address] [place], [address] Monocytes/100 WBC (Bld) 7.0 % Normal 0-10 [facility] Comment on above: Performed By: #### L 503.0105, L501.9910, L500.4050, L501.9520, L500.4100, L100.0100 ####[facility] [address] [place], [address] Neutrophils/100 WBC (Bld) 64.6 % Normal 47-70 [facility] Comment on above: Performed By: #### L 503.0105, L501.9910, L500.4050, L501.9520, L500.4100, L100.0100 ####[facility] [address] [place], [address] Nucleated RBC (Bld) [#/Vol] 0 10*3/uL Normal 0-5 [facility] Comment on above: Performed By: #### L 503.0105, L501.9910, L500.4050, L501.9520, L500.4100, L100.0100 ####[facility] [address] [place], [address] Platelet mean volume (Bld) [Entitic vol] 10.0 fL Normal 6.2-12.0 [facility] Comment on above: Performed By: #### L 503.0105, L501.9910, L500.4050, L501.9520, L500.4100, L100.0100 ####[facility] [address] [place], [address] Platelets (Bld) [#/Vol] 228 10*3/uL Normal 150-450 [facility] Comment on above: Performed By: #### L 503.0105, L501.9910, L500.4050, L501.9520, L500.4100, L100.0100 ####[facility] [address] [place], [address] RBC (Bld) [#/Vol] 4.36 10*6/uL Low 4.6-6.2 [facility] Comment on above: Performed By: #### L 503.0105, L501.9910, L500.4050, L501.9520, L500.4100, L100.0100 ####[facility] [address] [place], [address] RDW SD 46.7 fl High 35.1-43.9 [facility] Comment on above: Performed By: #### L 503.0105, L501.9910, L500.4050, L501.9520, L500.4100, L100.0100 ####[facility] [address] [place], [address] WBC (Bld) [#/Vol] 9.9 10*3/uL Normal 4.4-11.0 [facility] Comment on above: Performed By: #### L 503.0105, L501.9910, L500.4050, L501.9520, L500.4100, L100.0100 ####[facility] [address] [place], [address] Comprehensive Metabolic Prof ilon 01-23-2024 Albumin [Mass/Vol] 3.4 g/dL Normal 3.2-5.0 [facility] Comment on above: Performed By: #### L 503.0105, L501.9910, L500.4050, L501.9520, L500.4100, L100.0100 ####[facility] [address] [place], [address] Albumin/Globulin [Mass ratio] 1.0 {ratio} Normal 0.9-2.4 [facility] Comment on above: Performed By: #### L 503.0105, L501.9910, L500.4050, L501.9520, L500.4100, L100.0100 ####[facility] [address] [place], [address] ALK P 71 U/L Normal 45-117 [facility] Comment on above: Performed By: #### L 503.0105, L501.9910, L500.4050, L501.9520, L500.4100, L100.0100 ####[facility] [address] [place], [address] ALT [Catalytic activity/Vol] 28 U/L Normal 16-61 [facility] Comment on above: Performed By: #### L 503.0105, L501.9910, L500.4050, L501.9520, L500.4100, L100.0100 ####[facility] [address] [place], [address] AST [Catalytic activity/Vol] 14 U/L Low 15-37 [facility] Comment on above: Performed By: #### L 503.0105, L501.9910, L500.4050, L501.9520, L500.4100, L100.0100 ####[facility] [address] [place], [address] Bilirubin [Mass/Vol] 0.50 mg/dL Normal 0.20-1.00 [facility] Comment on above: Result Comment: For patients on eltrombopag therapy, use of Dimension [place] TBIL is not recommended. Performed By: #### L 503.0105, L501.9910, L500.4050, L501.9520, L500.4100, L100.0100 ####[facility] [address] [place], [address] BUN/CRE 17.9 RATIO Normal 10-20 [facility] Comment on above: Performed By: #### L 503.0105, L501.9910, L500.4050, L501.9520, L500.4100, L100.0100 ####[facility] [address] [place], [address] CA,Total 8.8 mg/dL Normal 8.5-10.1 [facility] Comment on above: Performed By: #### L 503.0105, L501.9910, L500.4050, L501.9520, L500.4100, L100.0100 ####[facility] [address] [place], [address] Chloride [Moles/Vol] 109 mmol/L High 98-107 [facility] Comment on above: Performed By: #### L 503.0105, L501.9910, L500.4050, L501.9520, L500.4100, L100.0100 ####[facility] [address] [place], [address] CO2 [Moles/Vol] 24.0 mmol/L Normal 21.0-32.0 [facility] Comment on above: Performed By: #### L 503.0105, L501.9910, L500.4050, L501.9520, L500.4100, L100.0100 ####[facility] [address] [place], [address] Creatinine [Mass/Vol] 0.95 mg/dL Normal 0.70-1.30 [facility] Comment on above: Result Comment: The validity of the calculated GFR GFRAA in patients over 70 years has not been determined. Clinical correlation is essential. Performed By: #### L 503.0105, L501.9910, L500.4050, L501.9520, L500.4100, L100.0100 ####[facility] [address] [place], [address] EST GFR - AA 100 mL/min Normal >60 [facility] Comment on above: Result Comment: Afri can Swazi GFR Calc Performed By: #### L 503.0105, L501.9910, L500.4050, L501.9520, L500.4100, L100.0100 ####[facility] [address] [place], [address] GAP 7 Normal 5-15 [facility] Comment on above: Performed By: #### L 503.0105, L501.9910, L500.4050, L501.9520, L500.4100, L100.0100 ####[facility] [address] [place], [address] GFR/1.73 sq M.predicted among non-blacks MDRD (S/P/Bld) [Vol rate/Area] 82 mL/min/{1.73_m2} Normal >60 [facility] Comment on above: Result Comment: Non- GFR Calc Performed By: #### L 503.0105, L501.9910, L500.4050, L501.9520, L500.4100, L100.0100 ####[facility] [address] [place], [address] Globulin (S) [Mass/Vol] 3.5 g/dL Normal 2.2-4.2 [facility] Comment on above: Performed By: #### L 503.0105, L501.9910, L500.4050, L501.9520, L500.4100, L100.0100 ####[facility] [address] [place], [address] Glucose [Mass/Vol] 76 mg/dL Normal 74-106 [facility] Comment on above: Performed By: #### L 503.0105, L501.9910, L500.4050, L501.9520, L500.4100, L100.0100 ####[facility] [address] [place], [address] Potassium [Moles/Vol] 4.0 mmol/L Normal 3.5-5.1 [facility] Comment on above: Performed By: #### L 503.0105, L501.9910, L500.4050, L501.9520, L500.4100, L100.0100 ####[facility] [address] [place], [address] Sodium [Moles/Vol] 140 mmol/L Normal 136-145 [facility] Comment on above: Performed By: #### L 503.0105, L501.9910, L500.4050, L501.9520, L500.4100, L100.0100 ####[facility] [address] [place], [address] T PROT 6.9 g/dL Normal 6.4-8.2 [facility] Comment on above: Performed By: #### L 503.0105, L501.9910, L500.4050, L501.9520, L500.4100, L100.0100 ####[facility] [address] [place], [address] Urea nitrogen [Mass/Vol] 17 mg/dL Normal 7-18 [facility] Comment on above: Performed By: #### L 503.0105, L501.9910, L500.4050, L501.9520, L500.4100, L100.0100 ####[facility] [address] [place], [address] Lipid Profileon 01-23-2024 Cholesterol [Mass/Vol] 136 mg/dL Normal 200 [facility] Comment on above: Result Comment: <200 mg/dL Desirable 200-240 mg/dL Borderline >240 mg/dL High Risk Performed By: #### L 503.0105, L501.9910, L500.4050, L501.9520, L500.4100, L100.0100 ####[facility] [address] [place], [address] Cholesterol in HDL [Mass/Vol] 44 mg/dL Normal [facility] Comment on above: Result Comment: The drugs N-Acetylcysteine and Metamizole may falsely depress this assay. Reference Range HDL <40 mg/dL Low HDL Cholesterol HDL >or= 60 mg/dL High HDL Cholesterol Performed By: #### L 503.0105, L501.9910, L500.4050, L501.9520, L500.4100, L100.0100 ####[facility] [address] [place], [address] Cholesterol in LDL [Mass/Vol] 66 mg/dL Normal 0-130 [facility] Comment on above: Performed By: #### L 503.0105, L501.9910, L500.4050, L501.9520, L500.4100, L100.0100 ####[facility] [address] [place], [address] Cholesterol in VLDL [Mass/Vol] 26 mg/dL Normal 5-40 [facility] Comment on above: Performed By: #### L 503.0105, L501.9910, L500.4050, L501.9520, L500.4100, L100.0100 ####[facility] [address] [place], [address] Triglyceride [Mass/Vol] 128 mg/dL Normal [facility] Comment on above: Result Comment: The drugs N-Acetylcysteine and Metamizole may falsely depress this assay. Serum Triglycerides Reference Interval Normal <150 mg/dL Borderline high 150 - 199 mg/dL High 200 - 499 mg/dL Very High > or = 500 mg/dL Performed By: #### L 503.0105, L501.9910, L500.4050, L501.9520, L500.4100, L100.0100 ####[facility] [address] [place], [place], [id number] PSA,Total - Annual Screenon 01-23-2024 PSA,TOT SCREEN 0.78 ng/mL Normal 0.00-4.00 [facility] Comment on above: Result Comment: This test was performed using the TPSA assay method for the [employer] chemistry system. Values obtained with different assay methods cannot be used interchangably. When changing PSA assays in the course of monitoring a patient, additional sequential testing should be carried out to confirm baseline values. Performed By: #### L 503.0105, L501.9910, L500.4050, L501.9520, L500.4100, L100.0100 ####[facility] [address] [place], [place], [id number] Thyroid Stim Hormone (TSH)on 01-23-2024 TSH 2.330 uIU/mL Normal 0.358-3.740 [facility] Comment on above: Performed By: #### L 503.0105, L501.9910, L500.4050, L501.9520, L500.4100, L100.0100 ####[facility] [address] [place], [place], [id number] Vitamin B12on 01-23-2024 Cobalamin (Vitamin B12) [Mass/Vol] 591 pg/mL Normal 211-911 [facility] Comment on above: Performed By: #### L 503.0105, L501.9910, L500.4050, L501.9520, L500.4100, L100.0100 ####[facility] [address] [place], [address] ENDOon 11-20-2023 TTG Ab (IgA) <4.0 Normal <=3.9 [facility] ([place]) Comment on above: Result Comment: Effmikaela ctive 11/05/2022: Evaluation of Transglutaminase Ab (IgA) results: [...] These test results were obtained with the Plei QUANTA Lite R-tTG IgA LA NENA. R-tTG IgA values obtained with different manufacturers' assay methods may not be used interchangeably. Performed By: #### L IP, CMP, MDW, TROPHS, GFR, DIFF, MORPH, CBC #### [address] [address] [id number] 11-20-2023 SYED-65 8.3 units/ml High 0.0-5.0 [facility] ([place]) Comment on above: Result Comment: Perf ormed At: [facility] [id number] Donovan Ramírez MD Ph:[phone] Performed By: #### L IP, CMP, MDW, TROPHS, GFR, DIFF, MORPH, CBC #### [address] [address] GLIADon 11-20-2023 Gliadin Ab IgA <20 Normal <=19 [facility] ([place]) Comment on above: Result Comment: Glia din [...] be used interchangeably. Performed By: #### L RUSSELL, DIANA, REGINA, TROPHS, GFR, DIFF, MORPH, CBC #### [address] [address] Gliadin Ab IgG <20 Normal <=19 [facility] ([place]) Comment on above: Result Comment: Glia din [...] be used interchangeably. Performed By: #### L RUSSELL, DIANA, REGINA, TROPHS, GFR, DIFF, MORPH, CBC #### [address] [address] ISLETon 11-20-2023 Panc Islet Cell Ab Negative Normal Neg:<1:1 [facility] ([place]) Comment on above: Result Comment: Perf ormed At: [facility] [address] [id number] Donovan Ramírez MD Ph:[phone] Performed By: #### L IP, CMP, MDW, TROPHS, GFR, DIFF, MORPH, CBC #### [address] [address] .Auto Diffon 11-15-2023 Basophil, Absolute 0.1 10 3/mcL Normal 0.0-0.2 Pending sale to [facility] ([place]) Comment on above: Performed By: #### L IP, CMP, MDW, TROPHS, GFR, DIFF, MORPH, CBC #### [address] [address] Basophils/100 WBC (Bld) 1.0 % Normal 0.0-2.5 A [facility] ([place]) Comment on above: Performed By: #### L IP, CMP, MDW, TROPHS, GFR, DIFF, MORPH, CBC #### [address] [address] Eosinophil, Absolute 0.5 10 3/mcL High 0.0-0.4 [facility] ([place]) Comment on above: Performed By: #### L IP, CMP, MDW, TROPHS, GFR, DIFF, MORPH, CBC #### [address] [address] Eosinophils/100 WBC (Bld) 5.1 % Normal 0.0-7.0 [facility] ([place]) Comment on above: Performed By: #### L IP, CMP, MDW, TROPHS, GFR, DIFF, MORPH, CBC #### [address] [address] Lymphocyte, Absolute 2.3 10 3/mcL Normal 0.8-3.9 [facility] ([place]) Comment on above: Performed By: #### L IP, CMP, MDW, TROPHS, GFR, DIFF, MORPH, CBC #### [address] [address] Lymphocytes/100 WBC (Bld) 25.3 % Normal 10.0-50.0 [facility] ([place]) Comment on above: Performed By: #### L IP, CMP, MDW, TROPHS, GFR, DIFF, MORPH, CBC #### [address] [address] Monocyte, Absolute 0.6 10 3/mcL Normal 0.2-1.0 Pending sale to [facility] ([place]) Comment on above: Performed By: #### L IP, CMP, MDW, TROPHS, GFR, DIFF, MORPH, CBC #### [address] [address] Monocytes/100 WBC (Bld) 6.3 % Normal 1.7-13.0 [facility] ([place]) Comment on above: Performed By: #### L IP, CMP, MDW, TROPHS, GFR, DIFF, MORPH, CBC #### [address] [address] Neutrophils/100 WBC (Bld) 62.3 % Normal 37.0-80.0 [facility] ([place]) Comment on above: Performed By: #### L IP, CMP, MDW, TROPHS, GFR, DIFF, MORPH, CBC #### [address] [address] .GFRon 11-15-2023 GFR Non- 75 ml/min/1.73sqm Normal [facility] ([place]) Comment on above: Result Comment: GFR Population [...] MDW, TROPHS, GFR, DIFF, MORPH, CBC #### [address] [address] GFR 91 ml/min/1.73sqm Normal [facility] ([place]) Comment on above: Result Comment: GFR Population [...] MDW, TROPHS, GFR, DIFF, MORPH, CBC #### [address] [address] .NEUABSon 11-15-2023 Neutrophil, Absolute 5.7 10 3/mcL Normal 2.9-6.2 [facility] ([place]) Comment on above: Performed By: #### L IP, CMP, MDW, TROPHS, GFR, DIFF, MORPH, CBC #### [address] [address] CBCon 11-15-2023 Erythrocyte distribution width (RBC) [Ratio] 13.6 % Normal 11.5-14.5 [facility] ([place]) Comment on above: Performed By: #### L IP, CMP, MDW, TROPHS, GFR, DIFF, MORPH, CBC #### [address] [address] Hematocrit (Bld) [Volume fraction] 39.7 % Low 42.0-52.0 [facility] ([place]) Comment on above: Performed By: #### L IP, CMP, MDW, TROPHS, GFR, DIFF, MORPH, CBC #### [address] [address] Hgb 13.5 G/dL Low 14.0-18.0 [facility] ([place]) Comment on above: Performed By: #### L IP, CMP, MDW, TROPHS, GFR, DIFF, MORPH, CBC #### [address] [address] MCH (RBC) [Entitic mass] 32.6 pg High 27.0-31.2 [facility] ([place]) Comment on above: Performed By: #### L IP, CMP, MDW, TROPHS, GFR, DIFF, MORPH, CBC #### [address] [address] MCHC 34.1 G/dL Normal 31.8-35.4 [facility] ([place]) Comment on above: Performed By: #### L IP, CMP, MDW, TROPHS, GFR, DIFF, MORPH, CBC #### [address] [address] MCV (RBC) [Entitic vol] 95.6 fL High 80.0-94.0 [facility] ([place]) Comment on above: Performed By: #### L IP, CMP, MDW, TROPHS, GFR, DIFF, MORPH, CBC #### [address] [address] Platelet 212 10 3/mcL Normal 130-400 [facility] ([place]) Comment on above: Performed By: #### L IP, CMP, MDW, TROPHS, GFR, DIFF, MORPH, CBC #### [address] [address] Platelet mean volume (Bld) [Entitic vol] 7.5 fL Normal 7.4-10.4 [facility] ([place]) Comment on above: Performed By: #### L IP, CMP, MDW, TROPHS, GFR, DIFF, MORPH, CBC #### [address] [address] RBC 4.15 10 6/mcL Normal 4.04-6.13 [facility] ([place]) Comment on above: Performed By: #### L IP, CMP, MDW, TROPHS, GFR, DIFF, MORPH, CBC #### [address] [address] WBC 9.1 10 3/mcL Normal 4.6-10.8 [facility] ([place]) Comment on above: Performed By: #### L IP, CMP, MDW, TROPHS, GFR, DIFF, MORPH, CBC #### [address] [address] CMPon 11-15-2023 Albumin Level 3.5 G/dL Normal 3.4-4.8 [facility] ([place]) Comment on above: Performed By: #### L IP, CMP, MDW, TROPHS, GFR, DIFF, MORPH, CBC #### [address] [address] Albumin/Globulin [Mass ratio] 1.1 {ratio} Normal 1.1-2.5 [facility] ([place]) Comment on above: Performed By: #### L IP, CMP, MDW, TROPHS, GFR, DIFF, MORPH, CBC #### [address] [address] ALP [Catalytic activity/Vol] 73 U/L Normal 40-135 [facility] ([place]) Comment on above: Performed By: #### L IP, CMP, MDW, TROPHS, GFR, DIFF, MORPH, CBC #### [address] [address] ALT [Catalytic activity/Vol] 39 U/L Normal 16-63 [facility] ([place]) Comment on above: Performed By: #### L IP, CMP, MDW, TROPHS, GFR, DIFF, MORPH, CBC #### [address] [address] AST [Catalytic activity/Vol] 15 U/L Normal 10-40 [facility] ([place]) Comment on above: Performed By: #### L IP, CMP, MDW, TROPHS, GFR, DIFF, MORPH, CBC #### [address] [address] Bili Total 0.5 mg/dL Normal 0.2-1.0 [facility] ([place]) Comment on above: Result Comment: Use of this assay is not recommended for patients undergoing treatment with eltrombopag due to the potential for falsely elevated results. Performed By: #### L IP, CMP, MDW, TROPHS, GFR, DIFF, MORPH, CBC #### [address] [address] BUN/Creatinine Ratio 27 ratio Normal 7-27 Pending sale to [facility] ([place]) Comment on above: Performed By: #### L IP, CMP, MDW, TROPHS, GFR, DIFF, MORPH, CBC #### [address] [address] Calcium [Mass/Vol] 9.1 mg/dL Normal 8.4-10.2 [facility] ([place]) Comment on above: Performed By: #### L IP, CMP, MDW, TROPHS, GFR, DIFF, MORPH, CBC #### [address] [address] Chloride [Moles/Vol] 111 mmol/L High 98-107 [facility] ([place]) Comment on above: Performed By: #### L IP, CMP, MDW, TROPHS, GFR, DIFF, MORPH, CBC #### [address] [address] CO2 [Moles/Vol] 26 mmol/L Normal 23-31 [facility] ([place]) Comment on above: Performed By: #### L IP, CMP, MDW, TROPHS, GFR, DIFF, MORPH, CBC #### [address] [address] Creatinine [Mass/Vol] 0.98 mg/dL Normal 0.70-1.30 [facility] Comment on above: Performed By: #### L IP, CMP, MDW, TROPHS, GFR, DIFF, MORPH, CBC #### [address] [address] Electrolyte Balance 11.0 mEq/L Normal 4.0-15.0 [facility] ([place]) Comment on above: Performed By: #### L IP, CMP, MDW, TROPHS, GFR, DIFF, MORPH, CBC #### [address] [address] Globulin 3.1 G/dL Normal [facility] ([place]) Comment on above: Performed By: #### L IP, CMP, MDW, TROPHS, GFR, DIFF, MORPH, CBC #### [address] [address] Glucose [Mass/Vol] 102 mg/dL Normal 83-110 [facility] ([place]) Comment on above: Performed By: #### L IP, CMP, MDW, TROPHS, GFR, DIFF, MORPH, CBC #### [address] [address] Potassium [Moles/Vol] 4.0 mmol/L Normal 3.5-5.1 [facility]) Comment on above: Performed By: #### L IP, CMP, MDW, TROPHS, GFR, DIFF, MORPH, CBC #### [address] [address] Sodium [Moles/Vol] 148 mmol/L High 136-145 [facility] ([place]) Comment on above: Performed By: #### L IP, CMP, MDW, TROPHS, GFR, DIFF, MORPH, CBC #### [address] [address] Total Protein 6.6 G/dL Normal 6.4-8.2 [facility] ([place]) Comment on above: Performed By: #### L IP, CMP, MDW, TROPHS, GFR, DIFF, MORPH, CBC #### [address] [address] Urea nitrogen [Mass/Vol] 26 mg/dL High 7-18 [facility] ([place]) Comment on above: Performed By: #### L IP, CMP, MDW, TROPHS, GFR, DIFF, MORPH, CBC #### [address] [address] CPEPon 11-15-2023 C-Peptide 1.06 ng/mL Normal 0.81-3.85 [facility] ([place]) Comment on above: Performed By: #### L IP, CMP, MDW, TROPHS, GFR, DIFF, MORPH, CBC #### [place] [address] FEon 11-15-2023 Iron [Mass/Vol] 95 ug/dL Normal 65-175 [facility] ([place]) Comment on above: Performed By: #### L IP, CMP, MDW, TROPHS, GFR, DIFF, MORPH, CBC #### [place] [address] Silvia 11-15-2023 Ferritin [Mass/Vol] 221.0 ng/mL Normal 26.0-388.0 [facility] ([place]) Comment on above: Performed By: #### L IP, CMP, MDW, TROPHS, GFR, DIFF, MORPH, CBC #### [place] [address] IBCon 11-15-2023 TIBC 244 mcg/dL Low 250-450 [facility] ([place]) Comment on above: Performed By: #### L IP, CMP, MDW, TROPHS, GFR, DIFF, MORPH, CBC #### [place] [address] IGAon 11-15-2023 IgA [Mass/Vol] 342 mg/dL Normal 40-350 [facility] ([place]) Comment on above: Result Comment: No te - New Reference Range in effect 19 Performed By: #### L IP, CMP, MDW, TROPHS, GFR, DIFF, MORPH, CBC #### [address] [address] LABORATORYOrdered By: Ayo Funes on 11-15-2023 Albumin [...] or higher Very high risk LABORATORYOrdered By: SYSTEM SYSTEM on 11-15-2023 25-hydroxyvitamin D3 [Mass/Vol] 34.7 [...] 11-15-2023 Cholesterol [Mass/Vol] 133 mg/dL Normal 0-200 [facility] ([place]) Comment on above: Result Comment: Chol esterol Reference Interval: Less than 200 Desirable 200-239 Borderline high risk 240 and above High risk Performed By: #### L RUSSELL, DINAA, REGINA, TROPHS, GFR, DIFF, MORPH, CBC #### [address] [place] [address] [place], [place] [address] Cholesterol in HDL [Mass/Vol] 49 mg/dL Normal 40-60 [facility] ([place]) Comment on above: Performed By: #### L RUSSELL, DIANA, W, TROPHS, GFR, DIFF, MORPH, CBC #### [address] [address] Cholesterol in LDL [Mass/Vol] 77 mg/dL Normal 0-130 [facility] ([place]) Comment on above: Performed By: #### L IP, DIANA, MDW, TROPHS, GFR, DIFF, MORPH, CBC #### [address] [address] Triglyceride [Mass/Vol] 37 mg/dL Normal 0-150 [facility] ([place]) Comment on above: Result Comment: Trig lyceride Reference Interval: Less than 150 Normal 150-199 Borderline high risk 200-499 High risk 500 or higher Very high risk Performed By: #### L IP, DIANA, W, TROPHS, GFR, DIFF, MORPH, CBC #### [address] [address] MALBRon 11-15-2023 U Creatinine 128.1 mg/dL Normal 39.0-259.0 [facility] ([place]) Comment on above: Performed By: #### L IP, DIANA, W, TROPHS, GFR, DIFF, MORPH, CBC #### [address] [address] U Microalb 872 mcg/dL Normal [facility] ([place]) Comment on above: Performed By: #### L IP, DIANA, W, TROPHS, GFR, DIFF, MORPH, CBC #### [address] [address] U Ratio Alb/Cre 7 mcg/mg Normal 0-30 [facility] ([place]) Comment on above: Performed By: #### L IP, DIANA, MDW, TROPHS, GFR, DIFF, MORPH, CBC #### [address] [address] TSHon 11-15-2023 TSH Qn 2.47 m[IU]/L Normal 0.36-3.74 [facility] ([place]) Comment on above: Performed By: #### L IP, CMP, MDW, TROPHS, GFR, DIFF, MORPH, CBC #### [place] [address] VIDHon 11-15-2023 Vit. D 25-Hydroxy 34.7 ng/mL Normal [facility] ([place]) Comment on above: Result Comment: Inte rpretive Values Based on Total 25(OH) Vitamin D: Deficient <20 ng/mL Insufficient 20 - <30 ng/mL Sufficient 30-100 ng/mL Performed By: #### L IP, CMP, MDW, TROPHS, GFR, DIFF, MORPH, CBC #### [address] [place] [id number] [place], [place] [address] Yenny 08-12-2023 [facility] Telephone ([facility]) RENNY RUSSO ([id number]) 1950 Date Time Provider Department 08/12/23 AMILCAR VERONICA [facility] During your visit today, we recorded the following information about you: Amilcar Veronica MD 08/12/2023 8:38 AM Signed Culture grew staph bacteria. I have sent an oral antibiotic to the pharmacy in [place] to help treat. Continue applying the antifungal cream to the umbilicus. Katiuska Palomares, MARISA 08/12/2023 3:14 PM Signed senior engineering manager Josefina returning the call as she states [facility] and that she thinks they attempted to call her. She is notified that pt has a staph infection and needs an antibiotic in addition to continuing the antifungal cream to the umbilicus. Notified that the antibiotic was sent to the pharmacy in [place]. She states that they no longer use that pharmacy and would like antibiotic sent to pt's mail order in [place], [place]. Instructed that pt needs to start the antibiotic today so will need to send to a local pharmacy. After much encouragement, Josefina asks that script be sent to [facility] in [place] and she will pick it up there. Notified guardian Maggie Neves about pt's results and need for antibiotics. She requests that the nurse Veronica needs to be notified as soon as possible. Attempted to contact her and VM went to a [employer] phone number. No msg left. Maggie had stated to call [facility] where pt is currently living and get Veronica's phone number. Called and spoke with Junie at [facility] who states H[facility] sometimes covers for Veronica. Re-attempted Veronica's number and got [employer]'s VM again. Called oHma Bender's cell number and LM of the [...] be applied. She will email nurse and house piping inspector in charge to follow up. Katiuska Palomares, MARISA 08/12/2023 3:14 PM Signed Called and instructed [place] pharmacy not to fill script. Called and spoke with Yvette at [facility] in [place]. Gave her verbal order for antibiotic. Allergies [...] Apply to affected area. - timolol/dorzolamide/lat anop/PF (PAKCTAO-[id number]-CNW ANOP,PF,) 0.5-2-0.005 % drop Use in eyes. [...] Status:Closed by SAHARA CHUN on 08/12/23 Normal [facility] Bacteria Wnd Culton 08-09-19 Bacteria identified Cx Nom (Wound) ORGANISM ID: [...] , Intermediate >4 , Resistant >8 Abnormal [facility] Comment on above: Performed By: #### 6 [id number] #### [facility] CLIA [id number] [address] [place] [address] [place] CNOVon 08-09-2023 CNOV Office Visit ([facility] ) RENNY RUSSO ([id number]) 1950 M Date Time Provider Department 08/09/23 6:30 PM AMILCAR VERONICA [facility] During your visit today, we recorded the [...] TOPICAL) Apply to affected area. timolol/dorzolamide/lat anop/PF ([id number]-[id number]-JRT ANOP,PF,) 0.5-2-0.005 % drop Use in eyes. [...] CULTURE WITH GRAM STAIN [SQWCUL] Order #: [id number]. #:[id number] clotrimazole (LOTRIMIN) 1 % creamApply to affected [...] Apply to affected area. - timolol/dorzolamide/lat anop/PF ([id number]-[id number]-GQW ANOP,PF,) 0.5-2-0.005 % drop Use in eyes. [...] ordered thi (more content not included)... Normal [facility] .Auto Diffon 08-07-2023 Basophil, Absolute 0.1 10 3/mcL Normal 0.0-0.2 Pending sale to [facility] ([place]) Comment on above: Performed By: #### C CHARLENE BURKETT ANEU #### [address] [address] Basophils/100 WBC (Bld) 0.8 % Normal 0.0-2.5 [facility] ([place]) Comment on above: Performed By: #### CHARLENE PAUL ANEU #### [address] [address] Eosinophil, Absolute 0.4 10 3/mcL Normal 0.0-0.4 [facility] ([place]) Comment on above: Performed By: #### CHARLENE PAUL, ANEU #### [address] [address] Eosinophils/100 WBC (Bld) 2.8 % Normal 0.0-7.0 [facility] ([place]) Comment on above: Performed By: #### CHARLENE PAUL, ANEU #### [address] [address] Lymphocyte, Absolute 3.3 10 3/mcL Normal 0.8-3.9 [facility] ([place]) Comment on above: Performed By: #### CHARLENE PAUL, ANEU #### [address] [address] Lymphocytes/100 WBC (Bld) 22.7 % Normal 10.0-50.0 [facility] ([place]) Comment on above: Performed By: #### CHARLENE PAUL, ANEU #### [address] [address] Monocyte, Absolute 1.1 10 3/mcL High 0.2-1.0 [facility] to [facility] ([place]) Comment on above: Performed By: #### CHARLENE PAUL, ANEU #### [address] [address] Monocytes/100 WBC (Bld) 7.3 % Normal 1.7-13.0 [facility] ([place]) Comment on above: Performed By: #### CHARLENE PAUL, ANEU #### [address] [address] Neutrophils/100 WBC (Bld) 66.4 % Normal 37.0-80.0 [facility] ([place]) Comment on above: Performed By: #### CHARLENE PAUL, ANEU #### [address] [address] .NEUABSon 08-07-2023 Neutrophil, Absolute 9.7 10 3/mcL High 2.9-6.2 [facility] ([place]) Comment on above: Performed By: #### L IP, CMP, MDW, TROPHS, GFR, DIFF, MORPH, CBC #### [place] [id number] CBCon 08-07-2023 Erythrocyte distribution width (RBC) [Ratio] 13.3 % Normal 11.5-14.5 [facility] ([place]) Comment on above: Performed By: #### C CHARLENE BURKETT ANEU #### [place] [address] Hematocrit (Bld) [Volume fraction] 38.7 % Low 42.0-52.0 [facility] ([place]) Comment on above: Performed By: #### CHARLENE PAUL ANEU #### [place] [id number] Hgb 13.5 G/dL Low 14.0-18.0 [facility] ([place]) Comment on above: Performed By: #### CHARLENE PAUL ANEU #### [address] [address] MCH (RBC) [Entitic mass] 33.2 pg High 27.0-31.2 [facility] ([place]) Comment on above: Performed By: #### CHARLENE PAUL ANEU #### [place] [id number] MCHC 34.9 G/dL Normal 31.8-35.4 [facility] ([place]) Comment on above: Performed By: #### CHARLENE PAUL ANEU #### [place] [id number] MCV (RBC) [Entitic vol] 95.2 fL High 80.0-94.0 [facility] ([place]) Comment on above: Performed By: #### CHARLENE PAUL ANEU #### [address] [address] Platelet 465 10 3/mcL High 130-400 [facility] ([place]) Comment on above: Performed By: #### C CHARLENE BURKETT ANEU #### [address] [place] [id number] [place], [place] [address] Platelet mean volume (Bld) [Entitic vol] 7.1 fL Low 7.4-10.4 [facility] ([place]) Comment on above: Performed By: #### C CHARLENE BURKETT ANEU #### [address] [address] RBC 4.06 10 6/mcL Normal 4.04-6.13 [facility] ([place]) Comment on above: Performed By: #### C CHARLENE BURKETT ANEU #### [address] [address] WBC 14.6 10 3/mcL High 4.6-10.8 [facility] ([place]) Comment on above: Performed By: #### CHARLENE PAUL ANEU #### [address] [address] LABORATORYOrdered By: SYSTEM SYSTEM on 08-07-2023 Basophil, [...] Basophil, Absolute 0.1 10 3/mcL Normal 0.0-0.2 P[facility] to [facility] ([place]) Comment on above: Performed By: #### L RUSSELL, DIANA, REGINA, TROPHS, GFR, DIFF, MORPH, CBC #### [address] [address] Basophils/100 WBC (Bld) 0.3 % Normal 0.0-2.5 [facility] ([place]) Comment on above: Performed By: #### L IP, CMP, REGINA, TROPHS, GFR, DIFF, MORPH, CBC #### [address] [address] Eosinophil, Absolute 0.0 10 3/mcL Normal 0.0-0.4 [facility] ([place]) Comment on above: Performed By: #### L IP, CMP, MDW, TROPHS, GFR, DIFF, MORPH, CBC #### [address] [address] Eosinophils/100 WBC (Bld) 0.2 % Normal 0.0-7.0 [facility] ([place]) Comment on above: Performed By: #### L IP, CMP, MDW, TROPHS, GFR, DIFF, MORPH, CBC #### [address] [address] Lymphocyte, Absolute 2.0 10 3/mcL Normal 0.8-3.9 [facility] ([place]) Comment on above: Performed By: #### L IP, CMP, MDW, TROPHS, GFR, DIFF, MORPH, CBC #### [address] [address] Lymphocytes/100 WBC (Bld) 12.8 % Normal 10.0-50.0 [facility] ([place]) Comment on above: Performed By: #### L IP, CMP, MDW, TROPHS, GFR, DIFF, MORPH, CBC #### [address] [address] Monocyte, Absolute 1.2 10 3/mcL High 0.2-1.0 Pending [facility] to [facility] ([place]) Comment on above: Performed By: #### L IP, CMP, MDW, TROPHS, GFR, DIFF, MORPH, CBC #### [address] [address] Monocytes/100 WBC (Bld) 7.5 % Normal 1.7-13.0 [facility] ([place]) Comment on above: Performed By: #### L IP, CMP, MDW, TROPHS, GFR, DIFF, MORPH, CBC #### [address] [address] Neutrophils/100 WBC (Bld) 79.2 % Normal 37.0-80.0 [facility] ([place]) Comment on above: Performed By: #### L IP, CMP, MDW, TROPHS, GFR, DIFF, MORPH, CBC #### [address] [address] .GFRon 07-29-2023 GFR 74 ml/min/1.73sqm Normal [facility] ([place]) Comment on above: Result Comment: GFR Population [...] mL/min/1.73 square meters Performed By: #### L RUSSELL, DIANA, REGINA, TROPHS, GFR, DIFF, MORPH, CBC #### [address] [address] GFR Non- 61 ml/min/1.73sqm Normal [facility] ([place]) Comment on above: Result Comment: GFR Population [...] mL/min/1.73 square meters Performed By: #### L RUSSELL, DIANA, MDW, TROPHS, GFR, DIFF, MORPH, CBC #### [address] [address] .NEUABSon 07-29-2023 Neutrophil, Absolute 12.7 10 3/mcL High 2.9-6.2 [facility] ([place]) Comment on above: Performed By: #### L IP, CMP, MDW, TROPHS, GFR, DIFF, MORPH, CBC #### [address] [address] BMPon 07-29-2023 BUN/Creatinine Ratio 26 ratio Normal 7-27 Pending sale to [facility] ([place]) Comment on above: Performed By: #### L IP, CMP, MDW, TROPHS, GFR, DIFF, MORPH, CBC #### [address] [address] Calcium [Mass/Vol] 8.1 mg/dL Low 8.4-10.2 [facility] ([place]) Comment on above: Performed By: #### L IP, CMP, MDW, TROPHS, GFR, DIFF, MORPH, CBC #### [address] [address] Chloride [Moles/Vol] 107 mmol/L Normal 98-107 Pending [facility] to [facility] ([place]) Comment on above: Performed By: #### L IP, CMP, MDW, TROPHS, GFR, DIFF, MORPH, CBC #### [address] [address] CO2 [Moles/Vol] 32 mmol/L High 23-31 [facility] ([place]) Comment on above: Performed By: #### L IP, CMP, MDW, TROPHS, GFR, DIFF, MORPH, CBC #### [address] [address] Creatinine [Mass/Vol] 1.17 mg/dL Normal 0.70-1.30 [facility] Comment on above: Performed By: #### L IP, CMP, MDW, TROPHS, GFR, DIFF, MORPH, CBC #### [address] [address] Electrolyte Balance 2.0 mEq/L Low 4.0-15.0 [facility] ([place]) Comment on above: Performed By: #### L IP, CMP, MDW, TROPHS, GFR, DIFF, MORPH, CBC #### [address] [address] Glucose [Mass/Vol] 256 mg/dL High 83-110 [facility] ([place]) Comment on above: Performed By: #### L RUSSELL, DIANA, W, TROPHS, GFR, DIFF, MORPH, CBC #### [address] [address] Potassium [Moles/Vol] 4.3 mmol/L Normal 3.5-5.1 [facility] Comment on above: Performed By: #### L IP, DIANA, W, TROPHS, GFR, DIFF, MORPH, CBC #### [address] [address] Sodium [Moles/Vol] 141 mmol/L Normal 136-145 [facility] ([place]) Comment on above: Performed By: #### L IP, DIANA, W, TROPHS, GFR, DIFF, MORPH, CBC #### [address] [address] Urea nitrogen [Mass/Vol] 31 mg/dL High 7-18 [facility] ([place]) Comment on above: Performed By: #### L RUSSELL, DIANA, W, TROPHS, GFR, DIFF, MORPH, CBC #### [address] [address] CBCon 07-29-2023 Erythrocyte distribution width (RBC) [Ratio] 13.1 % Normal 11.5-14.5 [facility] ([place]) Comment on above: Performed By: #### L RUSSELL, DIANA, REGINA, TROPHS, GFR, DIFF, MORPH, CBC #### [address] [address] Hematocrit (Bld) [Volume fraction] 39.4 % Low 42.0-52.0 [facility] ([place]) Comment on above: Performed By: #### L RUSSELL, DIANA, W, TROPHS, GFR, DIFF, MORPH, CBC #### [address] [address] Hgb 13.5 G/dL Low 14.0-18.0 [facility] ([place]) Comment on above: Performed By: #### L IP, CMP, MDW, TROPHS, GFR, DIFF, MORPH, CBC #### [address] [address] MCH (RBC) [Entitic mass] 32.5 pg High 27.0-31.2 [facility] ([place]) Comment on above: Performed By: #### L IP, CMP, MDW, TROPHS, GFR, DIFF, MORPH, CBC #### [address] [address] MCHC 34.4 G/dL Normal 31.8-35.4 [facility] ([place]) Comment on above: Performed By: #### L IP, CMP, MDW, TROPHS, GFR, DIFF, MORPH, CBC #### [address] [address] MCV (RBC) [Entitic vol] 94.5 fL High 80.0-94.0 [facility] ([place]) Comment on above: Performed By: #### L IP, CMP, MDW, TROPHS, GFR, DIFF, MORPH, CBC #### [address] [address] Platelet 223 10 3/mcL Normal 130-400 [facility] ([place]) Comment on above: Performed By: #### L IP, CMP, MDW, TROPHS, GFR, DIFF, MORPH, CBC #### [address] [address] Platelet mean volume (Bld) [Entitic vol] 8.4 fL Normal 7.4-10.4 [facility] ([place]) Comment on above: Performed By: #### L IP, CMP, MDW, TROPHS, GFR, DIFF, MORPH, CBC #### [address] [address] RBC 4.17 10 6/mcL Normal 4.04-6.13 [facility] ([place]) Comment on above: Performed By: #### L IP, CMP, MDW, TROPHS, GFR, DIFF, MORPH, CBC #### [address] [address] WBC 16.0 10 3/mcL High 4.6-10.8 [facility] ([place]) Comment on above: Performed By: #### L IP, DIANA, W, TROPHS, GFR, DIFF, MORPH, CBC #### [facility] [address] [place], [place] [address] FT4on 07-29-2023 Free T4 [Mass/Vol] 1.19 ng/dL Normal 0.76-1.46 [facility] ([place]) Comment on above: Performed By: #### L IP, CMP, MDW, TROPHS, GFR, DIFF, MORPH, CBC #### [facility] [address] [place], [place] [address] LABORATORYOrdered By: Donna Reyes on 07-29-2023 Blood Glucose Testing Reason Routine (07/29/23 9:53 PM) [facility] Work Phone: Glucose [Mass/Vol] 267 mg/dL High 82 - 115 mg/dL [facility] Work Phone: LABORATORYOrdered By: Jayjay Sullivan on 07-29-2023 Blood Glucose Testing Reason Routine (07/29/23 4:30 PM) [facility] Work Phone: Glucose [Mass/Vol] 126 mg/dL High 82 - 115 mg/dL [facility] Work Phone: Blood Glucose Testing Reason Routine (07/29/23 11:36 AM) [facility] Work Phone: Glucose [Mass/Vol] 200 mg/dL High 82 - 115 mg/dL [facility] Work Phone: Blood Glucose Testing Reason Routine (07/29/23 7:50 AM) [facility] Work Phone: Glucose [Mass/Vol] 247 mg/dL High 82 - 115 mg/dL [facility] Work Phone: LABORATORYOrdered By: SYSTEM SYSTEM on [...] 07-29-2023 TSH Qn 0.74 m[IU]/L Normal 0.36-3.74 [facility] ([place]) Comment on above: Performed By: #### L RUSSELL, DIANA, REGINA, TROPHS, GFR, DIFF, MORPH, CBC #### [address] [address] .GFRon 07-28-2023 GFR 48 ml/min/1.73sqm Normal [facility] ([place]) Comment on above: Result Comment: GFR Population [...] mL/min/1.73 square meters Performed By: #### L RUSSELL, DIANA, REGINA, TROPHS, GFR, DIFF, MORPH, CBC #### [address] [address] GFR Non- 40 ml/min/1.73sqm Normal [facility] ([place]) Comment on above: Result Comment: GFR Population [...] MDW, TROPHS, GFR, DIFF, MORPH, CBC #### [address] [address] GFR 31 ml/min/1.73sqm Normal [facility] ([place]) Comment on above: Result Comment: GFR Population [...] MDW, TROPHS, GFR, DIFF, MORPH, CBC #### [address] [address] GFR Non- 26 ml/min/1.73sqm Normal [facility] ([place]) Comment on above: Result Comment: GFR Population [...] MDW, TROPHS, GFR, DIFF, MORPH, CBC #### [address] [address] .Manual Diffon 07-28-2023 Bands 2.0 % Normal 0.0-5.0 [facility] ([place]) Comment on above: Performed By: #### L IP, CMP, MDW, TROPHS, GFR, DIFF, MORPH, CBC #### [address] [address] Basophil %, Manual 0.0 % Normal 0.0-2.5 [facility] ([place]) Comment on above: Performed By: #### L IP, CMP, MDW, TROPHS, GFR, DIFF, MORPH, CBC #### [address] [address] Basophil, Abs Manual 0.0 10 3/mcL Normal 0.0-0.2 [facility] ([place]) Comment on above: Performed By: #### L IP, CMP, MDW, TROPHS, GFR, DIFF, MORPH, CBC #### [address] [address] Eosinophil %, Manual 0.0 % Normal 0.0-7.0 Pending sale to [facility] ([place]) Comment on above: Performed By: #### L IP, CMP, MDW, TROPHS, GFR, DIFF, MORPH, CBC #### [address] [address] Eosinophil, Abs Manual 0.0 10 3/mcL Normal 0.0-0.4 [facility] ([place]) Comment on above: Performed By: #### L IP, CMP, MDW, TROPHS, GFR, DIFF, MORPH, CBC #### [address] [address] Lymphocyte %, Manual 12.0 % Normal 10.0-50.0 Pending sale to [facility] ([place]) Comment on above: Performed By: #### L IP, CMP, MDW, TROPHS, GFR, DIFF, MORPH, CBC #### [address] [address] Lymphocyte, Abs Manual 3.2 10 3/mcL Normal 0.8-3.9 [facility] ([place]) Comment on above: Performed By: #### L IP, CMP, MDW, TROPHS, GFR, DIFF, MORPH, CBC #### [address] [address] Monocyte %, Manual 1.0 % Low 1.7-13.0 [facility] ([place]) Comment on above: Performed By: #### L IP, CMP, MDW, TROPHS, GFR, DIFF, MORPH, CBC #### [address] [address] Monocyte, Abs Manual 0.3 10 3/mcL Normal 0.2-1.0 [facility] ([place]) Comment on above: Performed By: #### L IP, CMP, MDW, TROPHS, GFR, DIFF, MORPH, CBC #### [address] [address] Neutrophil %, Manual 85.0 % High 37.0-80.0 Pending sale to [facility] ([place]) Comment on above: Performed By: #### L IP, CMP, MDW, TROPHS, GFR, DIFF, MORPH, CBC #### [address] [address] Neutrophil, Abs Manual 22.9 10 3/mcL High 2.9-6.2 [facility] ([place]) Comment on above: Performed By: #### L IP, CMP, MDW, TROPHS, GFR, DIFF, MORPH, CBC #### [address] [address] Nucleated RBC 0.0 /100 WBC Normal [facility] ([place]) Comment on above: Performed By: #### L IP, CMP, MDW, TROPHS, GFR, DIFF, MORPH, CBC #### [address] [address] .Morphon 07-28-2023 Platelet Estimate Normal Normal [facility] ([place]) Comment on above: Performed By: #### L IP, CMP, MDW, TROPHS, GFR, DIFF, MORPH, CBC #### [address] [address] A1Con 07-28-2023 HbA1c (Bld) [Mass fraction] 10.2 % High 4.3-6.4 [facility] ([place]) Comment on above: Performed By: #### L IP, CMP, MDW, TROPHS, GFR, DIFF, MORPH, CBC #### [address] [address] BMPon 07-28-2023 BUN/Creatinine Ratio 32 ratio High 7-27 Pending sale to [facility] ([place]) Comment on above: Performed By: #### L IP, CMP, MDW, TROPHS, GFR, DIFF, MORPH, CBC #### [address] [address] Chloride [Moles/Vol] 110 mmol/L High 98-107 Pending sale to [facility] ([place]) Comment on above: Performed By: #### L IP, CMP, MDW, TROPHS, GFR, DIFF, MORPH, CBC #### [address] [address] CO2 [Moles/Vol] 22 mmol/L Low 23-31 [facility] ([place]) Comment on above: Performed By: #### L IP, CMP, MDW, TROPHS, GFR, DIFF, MORPH, CBC #### [address] [address] Creatinine [Mass/Vol] 1.70 mg/dL High 0.70-1.30 [facility] ([place]) Comment on above: Performed By: #### L IP, CMP, MDW, TROPHS, GFR, DIFF, MORPH, CBC #### [address] [address] Electrolyte Balance 12.0 mEq/L Normal 4.0-15.0 [facility] ([place]) Comment on above: Performed By: #### L IP, CMP, MDW, TROPHS, GFR, DIFF, MORPH, CBC #### [address] [address] Glucose [Mass/Vol] 78 mg/dL Low 83-110 [facility] ([place]) Comment on above: Performed By: #### L IP, CMP, MDW, TROPHS, GFR, DIFF, MORPH, CBC #### [address] [address] Potassium [Moles/Vol] 3.8 mmol/L Normal 3.5-5.1 [facility] ([place]) Comment on above: Performed By: #### L IP, CMP, MDW, TROPHS, GFR, DIFF, MORPH, CBC #### [address] [address] Sodium [Moles/Vol] 144 mmol/L Normal 136-145 [facility] ([place]) Comment on above: Performed By: #### L IP, CMP, MDW, TROPHS, GFR, DIFF, MORPH, CBC #### [place] [address] Urea nitrogen [Mass/Vol] 54 mg/dL High 7-18 [facility] ([place]) Comment on above: Performed By: #### L IP, CMP, MDW, TROPHS, GFR, DIFF, MORPH, CBC #### [place] [address] BUN/Creatinine Ratio 26 ratio Normal 7-27 Pending sale to [facility] ([place]) Comment on above: Order Comment: WH ILE ON INSULIN INFUSION Performed By: #### L IP, CMP, MDW, TROPHS, GFR, DIFF, MORPH, CBC #### [place] [id number] BMPOrdered By: SYSTEM SYSTEM on 07-28-2023 Calcium [Mass/Vol] 9.1 mg/dL Normal 8.4-10.2 AO ADM SS Comment on above: Performed By: #### L IP, CMP, MDW, TROPHS, GFR, DIFF, MORPH, CBC #### [place] [id number] Order Comment: WH ILE ON INSULIN INFUSION Chloride [Moles/Vol] 103 mmol/L Normal 98-107 AO A DM SS Comment on above: Order Comment: WH ILE ON INSULIN INFUSION Performed By: #### L IP, CMP, MDW, TROPHS, GFR, DIFF, MORPH, CBC #### [place] [address] CO2 [Moles/Vol] 24 mmol/L Normal 23-31 AO ADM SS Comment on above: Order Comment: WH ILE ON INSULIN INFUSION Performed By: #### L IP, CMP, MDW, TROPHS, GFR, DIFF, MORPH, CBC #### [address] [address] Creatinine [Mass/Vol] 2.48 mg/dL High 0.70-1.30 AO ADM SS Comment on above: Order Comment: WH ILE ON INSULIN INFUSION Performed By: #### L IP, CMP, MDW, TROPHS, GFR, DIFF, MORPH, CBC #### [address] [address] Electrolyte Balance 13.0 mEq/L Normal 4.0-15.0 AO AD M SS Comment on above: Order Comment: WH ILE ON INSULIN INFUSION Performed By: #### L IP, CMP, MDW, TROPHS, GFR, DIFF, MORPH, CBC #### [address] [address] Glucose [Mass/Vol] 461 mg/dL Critically abnormal 83-110 AO ADM SS Comment on above: Order Comment: WH ILE ON INSULIN INFUSION Performed By: #### L IP, CMP, MDW, TROPHS, GFR, DIFF, MORPH, CBC #### [address] [address] Potassium [Moles/Vol] 4.0 mmol/L Normal 3.5-5.1 AO ADM SS Comment on above: Order Comment: WH ILE ON INSULIN INFUSION Performed By: #### L IP, CMP, MDW, TROPHS, GFR, DIFF, MORPH, CBC #### [address] [address] Sodium [Moles/Vol] 140 mmol/L Normal 136-145 AO ADM SS Comment on above: Order Comment: WH ILE ON INSULIN INFUSION Performed By: #### L IP, CMP, MDW, TROPHS, GFR, DIFF, MORPH, CBC #### [address] [address] Urea nitrogen [Mass/Vol] 65 mg/dL High 7-18 AO ADM SS Comment on above: Order Comment: WH ILE ON INSULIN INFUSION Performed By: #### L IP, CMP, MDW, TROPHS, GFR, DIFF, MORPH, CBC #### [address] [address] CBCon 07-28-2023 Erythrocyte distribution width (RBC) [Ratio] 13.1 % Normal 11.5-14.5 [facility] ([place]) Comment on above: Performed By: #### L IP, CMP, MDW, TROPHS, GFR, DIFF, MORPH, CBC #### [address] [address] Hematocrit (Bld) [Volume fraction] 40.5 % Low 42.0-52.0 [facility] ([place]) Comment on above: Performed By: #### L IP, CMP, MDW, TROPHS, GFR, DIFF, MORPH, CBC #### [address] [address] Hgb 14.4 G/dL Normal 14.0-18.0 [facility] ([place]) Comment on above: Performed By: #### L IP, CMP, MDW, TROPHS, GFR, DIFF, MORPH, CBC #### [address] [address] MCH (RBC) [Entitic mass] 33.2 pg High 27.0-31.2 [facility] ([place]) Comment on above: Performed By: #### L IP, DIANA, MDW, TROPHS, GFR, DIFF, MORPH, CBC #### [address] [address] MCHC 35.5 G/dL High 31.8-35.4 [facility] ([place]) Comment on above: Performed By: #### L IP, CMP, MDW, TROPHS, GFR, DIFF, MORPH, CBC #### [address] [address] MCV (RBC) [Entitic vol] 93.5 fL Normal 80.0-94.0 A [facility] ([place]) Comment on above: Performed By: #### L IP, CMP, MDW, TROPHS, GFR, DIFF, MORPH, CBC #### [address] [address] Platelet 213 10 3/mcL Normal 130-400 [facility] ([place]) Comment on above: Performed By: #### L IP, CMP, MDW, TROPHS, GFR, DIFF, MORPH, CBC #### [place] [address] Platelet mean volume (Bld) [Entitic vol] 8.6 fL Normal 7.4-10.4 [facility] ([place]) Comment on above: Performed By: #### L IP, CMP, MDW, TROPHS, GFR, DIFF, MORPH, CBC #### [place] [address] RBC 4.33 10 6/mcL Normal 4.04-6.13 [facility]) Comment on above: Performed By: #### L IP, CMP, MDW, TROPHS, GFR, DIFF, MORPH, CBC #### [place] [address] WBC 26.9 10 3/mcL High 4.6-10.8 [facility] ([place]) Comment on above: Performed By: #### L IP, CMP, MDW, TROPHS, GFR, DIFF, MORPH, CBC #### [place] [address] CVFLURVon 07-28-2023 FLU A PCR Negative Normal Negative [facility] ([place]) Comment on above: Performed By: #### L IP, CMP, MDW, TROPHS, GFR, DIFF, MORPH, CBC #### [address] [address] FLU B PCR Negative Normal Negative [facility] ([place]) Comment on above: Performed By: #### L IP, CMP, MDW, TROPHS, GFR, DIFF, MORPH, CBC #### [place] [address] RSV PCR Negative Normal Negative [facility] ([place]) Comment on above: Performed By: #### L IP, CMP, MDW, TROPHS, GFR, DIFF, MORPH, CBC #### [address] [address] SARS-CoV-2 (COVID-19) RNA LUCY+probe Ql (Unsp spec) Positive Abnormal Negative [facility] ([place]) Comment on above: Result Comment: Resu lts [...] positive results. Performed By: #### L IP, CMP, MDW, TROPHS, GFR, DIFF, MORPH, CBC #### [address] [address] HFPon 07-28-2023 Bili Indirect 0.3 mg/dL Normal [facility] ([place]) Comment on above: Performed By: #### L IP, CMP, MDW, TROPHS, GFR, DIFF, MORPH, CBC #### [address] [address] Albumin Level 2.9 G/dL Low 3.4-4.8 [facility] ([place]) Comment on above: Performed By: #### L IP, CMP, MDW, TROPHS, GFR, DIFF, MORPH, CBC #### [address] [address] Albumin/Globulin [Mass ratio] 1.0 {ratio} Low 1.1-2.5 [facility] ([place]) Comment on above: Performed By: #### L IP, CMP, MDW, TROPHS, GFR, DIFF, MORPH, CBC #### [address] [address] ALP [Catalytic activity/Vol] 99 U/L Normal 40-135 [facility] ([place]) Comment on above: Performed By: #### L IP, CMP, MDW, TROPHS, GFR, DIFF, MORPH, CBC #### [place] [id number] ALT [Catalytic activity/Vol] 55 U/L Normal 16-63 [facility] ([place]) Comment on above: Performed By: #### L IP, CMP, MDW, TROPHS, GFR, DIFF, MORPH, CBC #### [place] [address] AST [Catalytic activity/Vol] 37 U/L Normal 10-40 [facility] ([place]) Comment on above: Performed By: #### L IP, CMP, MDW, TROPHS, GFR, DIFF, MORPH, CBC #### [place] [address] Bili Direct 0.1 mg/dL Normal 0.0-0.2 [facility] ([place]) Comment on above: Result Comment: Use of this assay is not recommended for patients undergoing treatment with eltrombopag due to the potential for falsely elevated results. Performed By: #### L IP, CMP, MDW, TROPHS, GFR, DIFF, MORPH, CBC #### [place] [address] Bili Total 0.4 mg/dL Normal 0.2-1.0 [facility] ([place]) Comment on above: Result Comment: Use of this assay is not recommended for patients undergoing treatment with eltrombopag due to the potential for falsely elevated results. Performed By: #### L IP, CMP, MDW, TROPHS, GFR, DIFF, MORPH, CBC #### [place] [address] Globulin 2.9 G/dL Normal [facility] ([place]) Comment on above: Performed By: #### L IP, CMP, MDW, TROPHS, GFR, DIFF, MORPH, CBC #### [place] [id number] [place], [place] [address] Total Protein 5.8 G/dL Low 6.4-8.2 [facility] ([place]) Comment on above: Performed By: #### L IP, CMP, MDW, TROPHS, GFR, DIFF, MORPH, CBC #### [place] [address] [address] LABORATORYOrdered By: SYSTEM SYSTEM on 07-28-2023 Calcium [...] to decrease blood sugar (07/28/23 11:44 AM) [facility] Work Phone: Blood Glucose Interventions Administered food/juice 2 (07/28/23 7:33 AM) [facility] Work Phone: Comment on above: Result Comment: [...] MDW, TROPHS, GFR, DIFF, MORPH, CBC #### [facility] [address] [place], [place] [address] Cholesterol in HDL [Mass/Vol] 46 mg/dL Normal 40-60 AO ADM SS Comment on above: Performed By: #### L IP, CMP, MDW, TROPHS, GFR, DIFF, MORPH, CBC #### [facility] [address] [place], [place] [address] Cholesterol in LDL [Mass/Vol] 47 mg/dL Normal 0-130 AO ADM SS Comment on above: Performed By: #### L IP, CMP, MDW, TROPHS, GFR, DIFF, MORPH, CBC #### [facility] [address] [place], [place] [address] Triglyceride [Mass/Vol] 83 mg/dL Normal 0-150 A [...] MDW, TROPHS, GFR, DIFF, MORPH, CBC #### [address] [address] Laboratory - Chemistry and C hemistry - challengeOrdered By: SYSTEM SYSTEM on 07-28-2023 Urea nitrogen/Creatinine [Mass ratio] 26 ratio Normal 7 - 27 ratio AO ADM SS MGOrdered By: SYSTEM SYSTEM on 07-28-2023 Magnesium [Mass/Vol] 2.5 mg/dL High 1.8-2.4 AO A DM SS Comment on above: Order Comment: WH ILE ON INSULIN INFUSION Performed By: #### L IP, CMP, MDW, TROPHS, GFR, DIFF, MORPH, CBC #### [place] [id number] PHOSOrdered By: SYSTEM SYSTE M on 07-28-2023 Phosphate [Mass/Vol] 4.0 mg/dL Normal 2.3-4.1 AO A DM SS Comment on above: Order Comment: WH ILE ON INSULIN INFUSION Performed By: #### L IP, CMP, MDW, TROPHS, GFR, DIFF, MORPH, CBC #### [address] [address] PHVon 07-28-2023 pH Venous 7.30 Low 7.31-7.41 [facility] ([place]) Comment on above: Performed By: #### L IP, CMP, MDW, TROPHS, GFR, DIFF, MORPH, CBC #### [place] [address] TSHon 07-28-2023 TSH Qn 0.43 m[IU]/L Normal 0.36-3.74 [facility] ([place]) Comment on above: Performed By: #### L IP, CMP, MDW, TROPHS, GFR, DIFF, MORPH, CBC #### [address] [address] XR CHEST 1 VIEWon 07-28-2023 XR CHEST [...] 07/28/2023 6:44:20 AM Ordering Provider: WINS[facility] ARRIETA [facility] ([place]) .GFRon 07-27-2023 GFR 27 ml/min/1.73sqm Normal [facility] ([place]) Comment on above: Result Comment: GFR Population [...] MDW, TROPHS, GFR, DIFF, MORPH, CBC #### [address] [address] GFR Non- 22 ml/min/1.73sqm Normal [facility] ([place]) Comment on above: Result Comment: GFR Population [...] MDW, TROPHS, GFR, DIFF, MORPH, CBC #### [address] [address] GFR 23 ml/min/1.73sqm Normal [facility] ([place]) Comment on above: Result Comment: GFR Population [...] MDW, TROPHS, GFR, DIFF, MORPH, CBC #### [address] [address] GFR Non- 19 ml/min/1.73sqm Normal [facility] ([place]) Comment on above: Result Comment: GFR Population [...] MDW, TROPHS, GFR, DIFF, MORPH, CBC #### [place] [address] .MDWon 07-27-2023 Monocyte Distribution Width 18.67 Normal 0.00-20.00 [facility] ([place]) Comment on above: Result Comment: For ED adult patients suspected of sepsis, MDW<=20.0 does not rule out sepsis or risk of sepsis Performed By: #### L IP, CMP, MDW, TROPHS, GFR, DIFF, MORPH, CBC #### [place] [address] .Manual Diffon 07-27-2023 Bands 3.0 % Normal 0.0-5.0 [facility] ([place]) Comment on above: Performed By: #### L IP, CMP, MDW, TROPHS, GFR, DIFF, MORPH, CBC #### [place] [address] Basophil %, Manual 0.0 % Normal 0.0-2.5 [facility] ([place]) Comment on above: Performed By: #### L IP, CMP, MDW, TROPHS, GFR, DIFF, MORPH, CBC #### [place] [address] Basophil, Abs Manual 0.0 10 3/mcL Normal 0.0-0.2 [facility] ([place]) Comment on above: Performed By: #### L IP, CMP, MDW, TROPHS, GFR, DIFF, MORPH, CBC #### [address] [address] Eosinophil %, Manual 0.0 % Normal 0.0-7.0 Pending sale to [facility] ([place]) Comment on above: Performed By: #### L IP, CMP, MDW, TROPHS, GFR, DIFF, MORPH, CBC #### [place] [address] Eosinophil, Abs Manual 0.0 10 3/mcL Normal 0.0-0.4 [facility] ([place]) Comment on above: Performed By: #### L IP, CMP, MDW, TROPHS, GFR, DIFF, MORPH, CBC #### [address] [address] Lymphocyte %, Manual 5.0 % Low 10.0-50.0 Pending sale to [facility] ([place]) Comment on above: Performed By: #### L IP, CMP, MDW, TROPHS, GFR, DIFF, MORPH, CBC #### [address] [address] Lymphocyte, Abs Manual 1.4 10 3/mcL Normal 0.8-3.9 [facility] ([place]) Comment on above: Performed By: #### L IP, CMP, MDW, TROPHS, GFR, DIFF, MORPH, CBC #### [address] [address] Monocyte %, Manual 2.0 % Normal 1.7-13.0 [facility] ([place]) Comment on above: Performed By: #### L IP, CMP, MDW, TROPHS, GFR, DIFF, MORPH, CBC #### [address] [address] Monocyte, Abs Manual 0.6 10 3/mcL Normal 0.2-1.0 [facility] ([place]) Comment on above: Performed By: #### L IP, CMP, MDW, TROPHS, GFR, DIFF, MORPH, CBC #### [address] [address] Neutrophil %, Manual 90.0 % High 37.0-80.0 Pending sale to [facility] ([place]) Comment on above: Performed By: #### L IP, CMP, MDW, TROPHS, GFR, DIFF, MORPH, CBC #### [address] [address] Neutrophil, Abs Manual 26.3 10 3/mcL High 2.9-6.2 [facility] ([place]) Comment on above: Performed By: #### L IP, CMP, MDW, TROPHS, GFR, DIFF, MORPH, CBC #### [address] [address] Nucleated RBC 0.0 /100 WBC Normal [facility] ([place]) Comment on above: Performed By: #### L IP, CMP, MDW, TROPHS, GFR, DIFF, MORPH, CBC #### [place] [address] .Morphon 07-27-2023 Platelet Estimate Normal Normal [facility]) Comment on above: Performed By: #### L IP, CMP, MDW, TROPHS, GFR, DIFF, MORPH, CBC #### [place] [address] .Urinalysis Microscopic (AO) on 07-27-2023 UA CA Ox Crystal Trace Normal [facility] ([place]) Comment on above: Performed By: #### L IP, CMP, MDW, TROPHS, GFR, DIFF, MORPH, CBC #### [place] [address] UA RBC 5-10 Abnormal None Seen [facility] ([place]) Comment on above: Performed By: #### L IP, CMP, MDW, TROPHS, GFR, DIFF, MORPH, CBC #### [place] [address] UA Squam Epithelial None Seen Normal None Seen [facility] ([place]) Comment on above: Performed By: #### L IP, CMP, MDW, TROPHS, GFR, DIFF, MORPH, CBC #### [place] [address] UA WBC 0-5 Abnormal None Seen [facility] ([place]) Comment on above: Performed By: #### L IP, CMP, MDW, TROPHS, GFR, DIFF, MORPH, CBC #### [address] [address] BMPon 07-27-2023 BUN/Creatinine Ratio 22 ratio Normal 7-27 Pending sale to [facility] ([place]) Comment on above: Performed By: #### L IP, CMP, MDW, TROPHS, GFR, DIFF, MORPH, CBC #### [place] [address] Calcium [Mass/Vol] 8.3 mg/dL Low 8.4-10.2 [facility] ([place]) Comment on above: Performed By: #### L IP, CMP, MDW, TROPHS, GFR, DIFF, MORPH, CBC #### [address] [address] Chloride [Moles/Vol] 95 mmol/L Low 98-107 Pending sale to [facility] ([place]) Comment on above: Performed By: #### L IP, CMP, MDW, TROPHS, GFR, DIFF, MORPH, CBC #### [address] [address] CO2 [Moles/Vol] 18 mmol/L Low 23-31 [facility] ([place]) Comment on above: Performed By: #### L IP, CMP, MDW, TROPHS, GFR, DIFF, MORPH, CBC #### [address] [address] Creatinine [Mass/Vol] 2.85 mg/dL High 0.70-1.30 [facility] Comment on above: Performed By: #### L IP, CMP, MDW, TROPHS, GFR, DIFF, MORPH, CBC #### [address] [address] Electrolyte Balance 19.0 mEq/L High 4.0-15.0 [facility] ([place]) Comment on above: Performed By: #### L IP, CMP, MDW, TROPHS, GFR, DIFF, MORPH, CBC #### [address] [address] Glucose [Mass/Vol] 729 mg/dL Critically abnormal 83-110 [facility] ([place]) Comment on above: Performed By: #### L IP, CMP, MDW, TROPHS, GFR, DIFF, MORPH, CBC #### [address] [address] Potassium [Moles/Vol] 4.0 mmol/L Normal 3.5-5.1 [facility]) Comment on above: Performed By: #### L IP, CMP, MDW, TROPHS, GFR, DIFF, MORPH, CBC #### [address] [address] Sodium [Moles/Vol] 132 mmol/L Low 136-145 [facility] ([place]) Comment on above: Performed By: #### L IP, CMP, MDW, TROPHS, GFR, DIFF, MORPH, CBC #### [address] [address] Urea nitrogen [Mass/Vol] 64 mg/dL High 7-18 [facility] ([place]) Comment on above: Performed By: #### L IP, CMP, MDW, TROPHS, GFR, DIFF, MORPH, CBC #### [address] [address] CBCon 07-27-2023 Erythrocyte distribution width (RBC) [Ratio] 13.4 % Normal 11.5-14.5 [facility] ([place]) Comment on above: Performed By: #### L IP, CMP, MDW, TROPHS, GFR, DIFF, MORPH, CBC #### [address] [address] Hematocrit (Bld) [Volume fraction] 45.8 % Normal 42.0-52.0 [facility] ([place]) Comment on above: Performed By: #### L IP, CMP, MDW, TROPHS, GFR, DIFF, MORPH, CBC #### [address] [address] Hgb 15.2 G/dL Normal 14.0-18.0 [facility] ([place]) Comment on above: Performed By: #### L IP, CMP, MDW, TROPHS, GFR, DIFF, MORPH, CBC #### [address] [address] MCH (RBC) [Entitic mass] 32.9 pg High 27.0-31.2 [facility] ([place]) Comment on above: Performed By: #### L IP, CMP, MDW, TROPHS, GFR, DIFF, MORPH, CBC #### [address] [address] MCHC 33.2 G/dL Normal 31.8-35.4 [facility] ([place]) Comment on above: Performed By: #### L IP, CMP, MDW, TROPHS, GFR, DIFF, MORPH, CBC #### [address] [address] MCV (RBC) [Entitic vol] 98.9 fL High 80.0-94.0 A [facility] ([place]) Comment on above: Performed By: #### L IP, CMP, MDW, TROPHS, GFR, DIFF, MORPH, CBC #### [address] [address] Platelet 273 10 3/mcL Normal 130-400 [facility] ([place]) Comment on above: Performed By: #### L IP, CMP, MDW, TROPHS, GFR, DIFF, MORPH, CBC #### [address] [address] Platelet mean volume (Bld) [Entitic vol] 8.8 fL Normal 7.4-10.4 [facility] ([place]) Comment on above: Performed By: #### L IP, CMP, MDW, TROPHS, GFR, DIFF, MORPH, CBC #### [address] [address] RBC 4.64 10 6/mcL Normal 4.04-6.13 [facility] ([place]) Comment on above: Performed By: #### L IP, CMP, MDW, TROPHS, GFR, DIFF, MORPH, CBC #### [address] [address] WBC 29.2 10 3/mcL High 4.6-10.8 [facility] ([place]) Comment on above: Performed By: #### L IP, CMP, MDW, TROPHS, GFR, DIFF, MORPH, CBC #### [address] [address] CMPon 07-27-2023 Albumin Level 3.6 G/dL Normal 3.4-4.8 [facility] ([place]) Comment on above: Performed By: #### L IP, CMP, MDW, TROPHS, GFR, DIFF, MORPH, CBC #### [address] [address] Albumin/Globulin [Mass ratio] 1.0 {ratio} Low 1.1-2.5 [facility] ([place]) Comment on above: Performed By: #### L IP, CMP, MDW, TROPHS, GFR, DIFF, MORPH, CBC #### [address] [address] ALP [Catalytic activity/Vol] 137 U/L High 40-135 [facility] ([place]) Comment on above: Performed By: #### L IP, CMP, MDW, TROPHS, GFR, DIFF, MORPH, CBC #### [place] [address] ALT [Catalytic activity/Vol] 64 U/L High 16-63 [facility] ([place]) Comment on above: Performed By: #### L IP, CMP, MDW, TROPHS, GFR, DIFF, MORPH, CBC #### [place] [id number] AST [Catalytic activity/Vol] 48 U/L High 10-40 [facility] ([place]) Comment on above: Performed By: #### L IP, CMP, MDW, TROPHS, GFR, DIFF, MORPH, CBC #### [address] [address] Bili Total 0.8 mg/dL Normal 0.2-1.0 [facility] ([place]) Comment on above: Result Comment: Use of this assay is not recommended for patients undergoing treatment with eltrombopag due to the potential for falsely elevated results. Performed By: #### L IP, CMP, MDW, TROPHS, GFR, DIFF, MORPH, CBC #### [place] [id number] BUN/Creatinine Ratio 21 ratio Normal 7-27 Pending sale to [facility] ([place]) Comment on above: Performed By: #### L IP, CMP, MDW, TROPHS, GFR, DIFF, MORPH, CBC #### [address] [address] Calcium [Mass/Vol] 9.1 mg/dL Normal 8.4-10.2 [facility] ([place]) Comment on above: Performed By: #### L IP, CMP, MDW, TROPHS, GFR, DIFF, MORPH, CBC #### [address] [address] Chloride [Moles/Vol] 88 mmol/L Low 98-107 Pending sale to [facility] ([place]) Comment on above: Performed By: #### L IP, CMP, MDW, TROPHS, GFR, DIFF, MORPH, CBC #### [address] [address] CO2 [Moles/Vol] 19 mmol/L Low 23-31 [facility] ([place]) Comment on above: Performed By: #### L IP, CMP, MDW, TROPHS, GFR, DIFF, MORPH, CBC #### [address] [address] Creatinine [Mass/Vol] 3.24 mg/dL High 0.70-1.30 [facility] ([place]) Comment on above: Performed By: #### L IP, CMP, MDW, TROPHS, GFR, DIFF, MORPH, CBC #### [address] [address] Electrolyte Balance 18.0 mEq/L High 4.0-15.0 [facility] ([place]) Comment on above: Performed By: #### L IP, CMP, MDW, TROPHS, GFR, DIFF, MORPH, CBC #### [address] [address] Globulin 3.5 G/dL Normal [facility] ([place]) Comment on above: Performed By: #### L IP, CMP, MDW, TROPHS, GFR, DIFF, MORPH, CBC #### [address] [address] Glucose [Mass/Vol] mg/dL Critically abnormal 83-110 [facility] ([place]) Comment on above: Performed By: #### L IP, CMP, MDW, TROPHS, GFR, DIFF, MORPH, CBC #### [address] [address] Potassium [Moles/Vol] 5.6 mmol/L High 3.5-5.1 [facility] ([place]) Comment on above: Performed By: #### L IP, CMP, MDW, TROPHS, GFR, DIFF, MORPH, CBC #### [address] [place], [place] [address] Sodium [Moles/Vol] 125 mmol/L Low 136-145 [facility] ([place]) Comment on above: Performed By: #### L IP, CMP, MDW, TROPHS, GFR, DIFF, MORPH, CBC #### [address] [address] Total Protein 7.1 G/dL Normal 6.4-8.2 [facility] ([place]) Comment on above: Performed By: #### L IP, CMP, MDW, TROPHS, GFR, DIFF, MORPH, CBC #### [address] [address] Urea nitrogen [Mass/Vol] 68 mg/dL High 7-18 [facility] ([place]) Comment on above: Performed By: #### L IP, CMP, MDW, TROPHS, GFR, DIFF, MORPH, CBC #### [address] [address] [address] ABDOMEN/PELVIS W/O CONTRA STon 07-27-2023 CT [...] 07/27/2023 11:34:46 PM Ordering Provider: YULIET Jules [facility] ([place]) LABORATORYOrdered By: Gary Long on 07-27-2023 pH [...] of Range Critical High (07/27/23 9:25 PM) [facility] Work Phone: LABORATORYOrdered By: SYSTEM SYSTEM on [...] ng/L Male: 0-76 ng/L Testing performed on [employer] using a homogeneous sandwich chemiluminescent immunoassay based on [employer] technology. WBC (Bld) [#/Vol] 29.2 103/mcL High 4.6 - 10.8 10^3/mcL AO Workflow SS LIPon 07-27-2023 Lipase Level 20 U/L Normal 16-77 [facility] ([place]) Comment on above: Performed By: #### L IP, CMP, MDW, TROPHS, GFR, DIFF, MORPH, CBC #### [address] [place], [place] [address] PHVon 07-27-2023 pH Venous 7.21 Low 7.31-7.41 [facility] ([place]) Comment on above: Performed By: #### L IP, CMP, MDW, TROPHS, GFR, DIFF, MORPH, CBC #### [address] [place], [place] [address] TROPHSon 07-27-2023 High Sensitivity Troponin I 43 ng/L Normal 0-76 [facility] ([place]) Comment on above: Result Comment: High Sensitive Troponin I Reference Ranges: Female: 0-51 ng/L Male: 0-76 ng/L Testing performed on [employer] using a homogeneous sandwich chemiluminescent immunoassay based on [employer] technology. Performed By: #### L IP, DIANA, W, TROPHS, GFR, DIFF, MORPH, CBC #### [address] [address] UAon 07-27-2023 Color (U) Yellow Normal [facility] ([place]) Comment on above: Performed By: #### L IP, DIANA, W, TROPHS, GFR, DIFF, MORPH, CBC #### [address] [address] Glucose (U) [Mass/Vol] 500 mg/dL Abnormal Negative [facility] ([place]) Comment on above: Performed By: #### L RUSSELL, DIANA, REGINA, TROPHS, GFR, DIFF, MORPH, CBC #### [address] [address] Ketones Ql (U) 80 mg/dL Abnormal Negative [facility] ([place]) Comment on above: Performed By: #### L RUSSELL, DIANA, W, TROPHS, GFR, DIFF, MORPH, CBC #### [address] [address] UA Appear Clear Normal Clear [facility] ([place]) Comment on above: Performed By: #### L RUSSELL, DIANA, W, TROPHS, GFR, DIFF, MORPH, CBC #### [address] [address] UA Blood Moderate Abnormal Negative [facility] ([place]) Comment on above: Performed By: #### L RUSSELL, DIANA, W, TROPHS, GFR, DIFF, MORPH, CBC #### [address] [address] UA Leuk Est Negative Normal Negative [facility] ([place]) Comment on above: Performed By: #### L IP, DIANA, MDW, TROPHS, GFR, DIFF, MORPH, CBC #### [address] [address] UA Nitrite Negative Normal Negative [facility] ([place]) Comment on above: Performed By: #### L IP, CMP, MDW, TROPHS, GFR, DIFF, MORPH, CBC #### [address] [address] UA pH 5.5 Normal 5.0 - 8.0 [facility] ([place]) Comment on above: Performed By: #### L IP, CMP, MDW, TROPHS, GFR, DIFF, MORPH, CBC #### [address] [address] UA Protein Negative Normal Negative [facility] ([place]) Comment on above: Performed By: #### L IP, CMP, MDW, TROPHS, GFR, DIFF, MORPH, CBC #### [address] [address] UA Spec Grav 1.015 Normal 1.015-1.025 [facility] ([place]) Comment on above: Performed By: #### L IP, CMP, MDW, TROPHS, GFR, DIFF, MORPH, CBC #### [address] [address] UA Specimen Type Straight Cath Normal [facility] ([place]) Comment on above: Performed By: #### L IP, CMP, MDW, TROPHS, GFR, DIFF, MORPH, CBC #### [address] [address] UA Urobilinogen 0.2 E.U./dL Normal 0.2-1.0 [facility] ([place]) Comment on above: Performed By: #### L IP, CMP, MDW, TROPHS, GFR, DIFF, MORPH, CBC #### [address] [address] Urobilinogen (U) [Mass/Vol] Negative Normal Negative [facility] ([place]) Comment on above: Performed By: #### L IP, CMP, MDW, TROPHS, GFR, DIFF, MORPH, CBC #### [address] [address] Bilirubin Test strip Ql (U)O rdered By: Kim Hutchinson on 07-26-2023 Bilirubin Ql (U) Negative Negative [facility] Culture, urineOrdered By: Tutu Hutchinson on 07-26-2023 Bacteria identified Cx Nom (U) Enterococcus faecalis [facility] Bacteria identified Cx Nom (U) Staphylococcus aureus [facility] Bacteria identified Cx Nom (U) Positive [facility] Ketones Test strip Ql (U)Ord ered By: Kim Hutchinson on 07-26-2023 Ketones Ql (U) 50 mg/dl Negative [facility] Nitrite Test strip Ql (U)Ord ered By: Kim Hutchinson on 07-26-2023 Nitrite Ql (U) Negative Negative [facility] Protein Test strip Ql (U)Ord ered By: Kim Hutchinson on 07-26-2023 Protein Ql (U) 15 mg/dl Negative [facility] Urine blood detectionOrdered By: Kim Hutchinson on 07-26-2023 RBC Ql (U) 25 /ul Negative [facility] Urine clarityOrdered By: Da Hutchinson on 07-26-2023 Clarity (U) Clear Clear [facility] Urine color determinationOrd ered By: Kim Hutchinson on 07-26-2023 Color (U) Yellow Yellow [facility] Urine glucose detectionOrder ed By: Kim Hutchinson on 07-26-2023 Glucose Ql (U) 1000 mg/dl Normal [facility] Urine leukocyte esterase det ection by dipstickOrdered By: Kim Hutchinson on 07-26-2023 Leukocyte esterase Test strip Ql (U) 25 /ul Negative [facility] Urine pHOrdered By: Kim mahmood on 07-26-2023 pH (U) 6.0 [pH] 5.0 - 8.0 [facility] Urine specific gravity measu rementOrdered By: Kim Hutchinson on 07-26-2023 Specific gravity (U) [Rel density] 1.010 1.002-1.030 [facility] Urine urobilinogen measureme ntOrdered By: Kim Hutchinson on 07-26-2023 Urobilinogen Ql (U) Normal mg/dl Normal [facility] Basophil percentageOrdered B y: Kim Hutchinson on 06-07-2023 Bilirubin [Mass/Vol] 0.50 mg/dL 0.20-1.00 [facility] Comment on above: For patients on eltr ombopag therapy, use of Dimension [place] TBIL is not recommended. Chloride [Moles/Vol] 112 mmol/L 98-107 [facility] Glucose [Mass/Vol] 106 mg/dL 74-106 [facility] Comment on above: Fasting Glucose resu lt from 100 to 125 mg/dL suggests IMPAIRED HOMEOSTASIS per A.D.A. criteria. Potassium [Moles/Vol] 4.2 mmol/L 3.5-5.1 [facility] Protein [Mass/Vol] 7.2 g/dL 6.4-8.2 [facility] Sodium [Moles/Vol] 141 mmol/L 136-145 [facility] Laboratory - Chemistry and C hemistry - challengeOrdered By: Kim Hutchinson on 06-07-2023 Albumin/Globulin [Mass ratio] 1.0 {ratio} 0.9-2.4 [facility] ALP [Catalytic activity/Vol] 77 U/L 45-117 [facility] ALT [Catalytic activity/Vol] 22 U/L 16-61 [facility] CO2 [Moles/Vol] 27.0 mmol/L 21.0-32.0 [facility] Globulin (S) [Mass/Vol] 3.6 g/dL 2.2-4.2 [facility] Urea nitrogen/Creatinine [Mass ratio] 19.7 mg/mg 10-20 [facility] No Panel InformationOrdered By: Kim Hutchinson on 06-07-2023 Estimated GFR (MDRD) Amer 104 mL/min >60 [facility] Comment on above: GFR Calc Estimated GFR (MDRD) Non-Af Amer 86 mL/min >60 [facility] Comment on above: Non- GFR Calc Serum or plasma calcium allen urement (mass/volume)Ordered By: Kim Hutchinson on 06-07-2023 Calcium [Mass/Vol] 8.8 mg/dL 8.5-10.1 [facility] Serum or plasma creatinine m easurement (mass/volume)Ordered By: Kim Hutchinson on 06-07-2023 Creatinine [Mass/Vol] 0.92 mg/dL 0.70-1.30 [facility] Comment on above: The validity of the calculated GFR & GFRAA in patients over 70 years has not been determined. Clinical correlation is essential. Serum or plasma thyroid stim ulating hormone (TSH) measurement (units/volume)Ordered By: Kim Hutchinson on 06-07-2023 TSH Qn 1.28 uIU/mL 0.358-3.74 [facility] Serum or plasma transthyreti n measurement (mass/volume)Ordered By: Kim Hutchinson on 06-07-2023 Prealbumin [Mass/Vol] 24.0 mg/dL 20.0-40.0 [facility] Serum or plasma urea nitroge n measurement (mass/volume)Ordered By: Kim Hutchinson on 06-07-2023 Urea nitrogen [Mass/Vol] 18 mg/dL 7-18 [facility] Thin prep Papanicolaou smear with manual screeningOrdered By: Kim Hutchinson on 06-07-2023 Thin prep Papanicolaou smear with manual screening 3.6 g/dL 3.2-5.0 [facility] Thin prep Papanicolaou smear with manual screening 12 U/L 15-37 [facility] Thin prep Papanicolaou smear with manual screening 2 5-15 [facility] Absolute lymphocyte countOrd ered By: Kim Hutchinson on 01-01-2023 Lymphocytes Auto (Unsp spec) [#/Vol] 2.17 10*3/uL 0.83-4.51 [facility] Basophil percentageOrdered B y: Kim Hutchinson on 01-01-2023 Basophils/100 WBC (Bld) 0.6 % 0-1 [facility] Bilirubin [Mass/Vol] 0.40 mg/dL 0.20-1.00 [facility] Comment on above: For patients on eltr ombopag therapy, use of Dimension [place] TBIL is not recommended. Chloride [Moles/Vol] 110 mmol/L 98-107 [facility] Cholesterol [Mass/Vol] 132 mg/dL <200 [facility] Comment on above: <200 mg/dL Desirable 200-240 mg/dL Borderline >240 mg/dL High Risk Eosinophils/100 WBC (Bld) 2.2 % 0-5 [facility] Glucose [Mass/Vol] 96 mg/dL 74-106 [facility] Neutrophils (Bld) [#/Vol] 7.0 10*3/uL 2.0-7.7 [facility] Neutrophils/100 WBC (Bld) 69.1 % 47-70 [facility] Potassium [Moles/Vol] 4.5 mmol/L 3.5-5.1 [facility] Protein [Mass/Vol] 7.2 g/dL 6.4-8.2 [facility] Sodium [Moles/Vol] 142 mmol/L 136-145 [facility] Triglyceride [Mass/Vol] 87 mg/dL <199 [facility] Comment on above: The drugs N-Acetylcy steine and Metamizole may falsely depress this assay.Serum Triglycerides Reference Interval Normal <150 mg/dL Borderline high 150 - 199 mg/dL High 200 - 499 mg/dL Very High > or = 500 mg/dL WBC (Bld) [#/Vol] 10.1 10*3/uL 4.4-11.0 [facility] Blood erythrocytes count (nu mber/volume)Ordered By: Kim Hutchinson on 01-01-2023 RBC (Bld) [#/Vol] 4.67 10*6/uL 4.6-6.2 [facility] Blood hemoglobin measurement (mass/volume)Ordered By: Kim Hutchinson on 01-01-2023 Hemoglobin (Bld) [Mass/Vol] 15.5 g/dL 13.0-16.5 [facility] Blood lymphocytes/100 leukoc ytesOrdered By: Kim Hutchinson on 01-01-2023 Lymphocytes/100 WBC (Bld) 21.6 % 19-41 [facility] Blood monocytes/100 leukocyt esOrdered By: Kim Hutchinson on 01-01-2023 Monocytes/100 WBC (Bld) 6.2 % 0-10 [facility] Blood platelet mean volumeOr dered By: Kim Hutchinson on 01-01-2023 Platelet mean volume (Bld) [Entitic vol] 10.2 fL 6.2-12.0 [facility] Determination of erythrocyte mean corpuscular volume (MCV)Ordered By: Kim Hutchinson on 01-01-2023 MCV (RBC) [Entitic vol] 98.1 fL 80-94 [facility] Hematocrit Auto (Bld) [Volum e fraction]Ordered By: Kim Hutchinson on 01-01-2023 Hematocrit (Bld) [Volume fraction] 45.8 % 40-54 [facility] Laboratory - Chemistry and C hemistry - challengeOrdered By: [facility] on 01-01-2023 ALP [Catalytic activity/Vol] 77 U/L 45-117 [facility] ALT [Catalytic activity/Vol] 24 U/L 16-61 [facility] CO2 [Moles/Vol] 27.0 mmol/L 21.0-32.0 [facility] Cobalamin (Vitamin B12) [Mass/Vol] 351 pg/mL 211-911 [facility] Globulin (S) [Mass/Vol] 3.7 g/dL 2.2-4.2 [facility] Urea nitrogen/Creatinine [Mass ratio] 18.9 mg/mg 10-20 [facility] Laboratory - Hematology and Cell countsOrdered By: Kim Hutchinson on 01-01-2023 Erythrocyte distribution width (RBC) [Entitic vol] 48.8 fL 35.1-43.9 [facility] Erythrocyte distribution width (RBC) [Ratio] 13.3 % 11.6-14.6 [facility] Immature granulocytes/100 WBC (Bld) 0.300 % 0.0-0.9 [facility] Comment on above: IG% - Immature Granu locytes (promyelocytes, myelocytes and metamyelocytes) > 1% indicates that a LEFT SHIFT is Present. MCH (RBC) [Entitic mass] 33.2 pg 27.0-32.0 [facility] Nucleated RBC/100 WBC (Bld) [Ratio] 0 % 0-5 [facility] MCHC Auto (RBC) [Mass/Vol]Or dered By: Kim Hutchinson on 09-19-2023 MCHC (RBC) [Mass/Vol] 33.8 g/dL 32-36 [facility] No Panel InformationOrdered By: Kim Hutchinson on 01-01-2023 Estimated GFR (MDRD) Amer 100 mL/min >60 [facility] Comment on above: GFR Calc Estimated GFR (MDRD) Non-Af Amer 82 mL/min >60 [facility] Comment on above: Non- GFR Calc Prostate Specific Antigen Screen 1.53 ng/mL 0.00-4.00 [facility] Comment on above: This test was perfor med using the TPSA assay method for [employer] chemistry system. Values obtained with differentassay methods cannot be used interchangably.When changing PSA assays in the course of monitoring apatient, additional sequential testing should be carriedout to confirm baseline values. Thyroid Stimulating Hormone (TSH) 1.50 uIU/mL 0.358-3.74 [facility] Platelets bldOrdered By: Da Hutchinson on 01-01-2023 Platelets (Bld) [#/Vol] 253 10*3/uL 150-450 [facility] Serum or plasma albumin allen urement (mass/volume)Ordered By: Kim Hutchinson on 01-01-2023 Albumin [Mass/Vol] 3.5 g/dL 3.2-5.0 [facility] Serum or plasma albumin/glob ulin mass ratioOrdered By: Kim Hutchinson on 01-01-2023 Albumin/Globulin [Mass ratio] 0.9 {ratio} 0.9-2.4 [facility] Serum or plasma calcium allen urement (mass/volume)Ordered By: Kim Hutchinson on 01-01-2023 Calcium [Mass/Vol] 8.9 mg/dL 8.5-10.1 [facility] Serum or plasma cholesterol in HDL measurement (mass/volume)Ordered By: Kim Hutchinson on 01-01-2023 Cholesterol in HDL [Mass/Vol] 36 mg/dL >40 [facility] Comment on above: The drugs N-Acetylcy steine and Metamizole may falsely depress this assay. Reference Range HDL <40 mg/dL Low HDL Cholesterol HDL >or= 60 mg/dL High HDL Cholesterol Serum or plasma cholesterol in VLDL measurement (mass/volume)Ordered By: Kim Hutchinson on 01-01-2023 Cholesterol in VLDL [Mass/Vol] 17 mg/dL 5-40 [facility] Serum or plasma creatinine m easurement (mass/volume)Ordered By: Kim Hutchinson on 01-01-2023 Creatinine [Mass/Vol] 0.95 mg/dL 0.70-1.30 [facility] Comment on above: The validity of the calculated GFR & GFRAA in patients over 70 years has not been determined. Clinical correlation is essential. Serum or plasma low density lipoprotein (LDL) cholesterol measurement (mass/volume)Ordered By: [place] Evangelina on 01-01-2023 Cholesterol in LDL [Mass/Vol] 79 mg/dL 0-130 [facility] Serum or plasma urea nitroge n measurement (mass/volume)Ordered By: [facility] on 01-01-2023 Urea nitrogen [Mass/Vol] 18 mg/dL 7-18 [facility] Thin prep Papanicolaou smear with manual screeningOrdered By: Kim Evangelina on 01-01-2023 Thin prep Papanicolaou smear with manual screening 15 U/L 15-37 [facility] Thin prep Papanicolaou smear with manual screening 5 5-15 [facility] No Panel Informationon 01-16 Prostate Specific Antigen Screen 1.40 ng/mL 0.00-4.00 [facility] Work Phone: Comment on above: This test was perfor med using the TPSA assay method for the[facility]. Values obtained with differentassay methods cannot be used interchangably.When changing PSA assays in the course of monitoring apatient, additional sequential testing should be carriedout to confirm baseline values. Absolute lymphocyte counton 12-26-2021 Lymphocytes Auto (Unsp spec) [#/Vol] 1.91 10*3/uL 0.83-4.51 [facility] Work Phone: Basophil percentageon 2021 Basophils/100 WBC (Bld) 0.7 % 0-1 [facility] Work Phone: Bilirubin [Mass/Vol] 0.60 mg/dL 0.20-1.00 [facility] Work Phone: Comment on above: For patients on eltr ombopag therapy, use of Dimension [place] TBIL is not recommended. Chloride [Moles/Vol] 109 mmol/L 98-107 [facility] Work Phone: Eosinophils/100 WBC (Bld) 3.9 % 0-5 [facility] Work Phone: [phone] Glucose [Mass/Vol] 98 mg/dL 74-106 [facility] Work Phone: Neutrophils (Bld) [#/Vol] 5.9 10*3/uL 2.0-7.7 [facility] Work Phone: Neutrophils/100 WBC (Bld) 67.1 % 47-70 [facility] Work Phone: Potassium [Moles/Vol] 4.3 mmol/L 3.5-5.1 [facility] Work Phone: Protein [Mass/Vol] 7.3 g/dL 6.4-8.2 [facility] Work Phone: Sodium [Moles/Vol] 143 mmol/L 136-145 [facility] Work Phone: WBC (Bld) [#/Vol] 8.8 10*3/uL 4.4-11.0 [facility] Work Phone: Bilirubin Test strip Ql (U)o n 12-26-2021 Bilirubin Ql (U) Negative Negative [facility] Work Phone: Blood erythrocytes count (nu mber/volume)on 12-26-2021 RBC (Bld) [#/Vol] 4.50 10*6/uL 4.6-6.2 [facility] Work Phone: Blood hemoglobin measurement (mass/volume)on 12-26-2021 Hemoglobin (Bld) [Mass/Vol] 14.6 g/dL 13.0-16.5 [facility] Work Phone: Blood lymphocytes/100 leukoc yteson 12-26-2021 Lymphocytes/100 WBC (Bld) 21.7 % 19-41 [facility] Work Phone: Blood monocytes/100 leukocyt eson 12-26-2021 Monocytes/100 WBC (Bld) 6.1 % 0-10 [facility] Work Phone: Blood platelet mean volumeon 12-26-2021 Platelet mean volume (Bld) [Entitic vol] 10.1 fL 6.2-12.0 [facility] Work Phone: Determination of erythrocyte mean corpuscular volume (MCV)on 12-26-2021 MCV (RBC) [Entitic vol] 96.4 fL 80-94 [facility] Work Phone: Hematocrit Auto (Bld) [Volum e fraction]on 12-26-2021 Hematocrit (Bld) [Volume fraction] 43.4 % 40-54 [facility] Work Phone: Ketones Test strip Ql (U)on 12-26-2021 Ketones Ql (U) Negative Negative [facility] Work Phone: [phone] Laboratory - Chemistry and C hemistry - challengeon 12-26-2021 ALP [Catalytic activity/Vol] 84 U/L 45-117 [facility] Work Phone: [phone] ALT [Catalytic activity/Vol] 20 U/L 16-61 [facility] Work Phone: [phone] CO2 [Moles/Vol] 29.0 mmol/L 21.0-32.0 [facility] Work Phone: Cobalamin (Vitamin B12) [Mass/Vol] 414 pg/mL 211-911 [facility] Work Phone: Globulin (S) [Mass/Vol] 3.8 g/dL 2.2-4.2 [facility] Work Phone: [phone] Urea nitrogen/Creatinine [Mass ratio] 15.1 mg/mg 10-20 [facility] Work Phone: Laboratory - Hematology and Cell countson 12-26-2021 Erythrocyte distribution width (RBC) [Entitic vol] 47.6 fL 35.1-43.9 [facility] Work Phone: [phone] Erythrocyte distribution width (RBC) [Ratio] 13.4 % 11.6-14.6 [facility] Work Phone: [phone] Immature granulocytes/100 WBC (Bld) 0.500 % 0.0-0.9 [facility] Work Phone: [phone] Comment on above: IG% - Immature Granu locytes (promyelocytes, myelocytes and metamyelocytes) > 1% indicates that a LEFT SHIFT is Present. MCH (RBC) [Entitic mass] 32.4 pg 27.0-32.0 [facility] Work Phone: [phone] Nucleated RBC/100 WBC (Bld) [Ratio] 0 % 0-5 [facility] Work Phone: [phone] MCHC Auto (RBC) [Mass/Vol]on 12-26-2021 MCHC (RBC) [Mass/Vol] 33.6 g/dL 32-36 [facility] Work Phone: [phone] Nitrite Test strip Ql (U)on 12-26-2021 Nitrite Ql (U) Negative Negative [facility] Work Phone: No Panel Informationon 12-26 Estimated GFR (MDRD) Amer 103 mL/min >60 [facility] Work Phone: Comment on above: GFR Calc Estimated GFR (MDRD) Non-Af Amer 85 mL/min >60 [facility] Work Phone: Comment on above: Non- GFR Calc Thyroid Stimulating Hormone (TSH) 1.92 uIU/mL 0.358-3.74 [facility] Work Phone: Platelets bldon 12-26-2021 Platelets (Bld) [#/Vol] 264 10*3/uL 150-450 [facility] Work Phone: [phone] Protein Test strip Ql (U)on 12-26-2021 Protein Ql (U) 15 mg/dl Negative [facility] Work Phone: Serum or plasma albumin allen urement (mass/volume)on 12-26-2021 Albumin [Mass/Vol] 3.5 g/dL 3.2-5.0 [facility] Work Phone: Serum or plasma albumin/glob ulin mass ratioon 12-26-2021 Albumin/Globulin [Mass ratio] 0.9 {ratio} 0.9-2.4 [facility] Work Phone: [phone] Serum or plasma calcium allen urement (mass/volume)on 12-26-2021 Calcium [Mass/Vol] 8.8 mg/dL 8.5-10.1 [facility] Work Phone: Serum or plasma creatinine m easurement (mass/volume)on 12-26-2021 Creatinine [Mass/Vol] 0.93 mg/dL 0.70-1.30 [facility] Work Phone: Comment on above: The validity of the calculated GFR & GFRAA in patients over 70 years has not been determined. Clinical correlation is essential. Serum or plasma urea nitroge n measurement (mass/volume)on 12-26-2021 Urea nitrogen [Mass/Vol] 14 mg/dL 7-18 [facility] Work Phone: Thin prep Papanicolaou smear with manual screeningon 12-26-2021 Thin prep Papanicolaou smear with manual screening 13 U/L 15-37 [facility] Work Phone: Thin prep Papanicolaou smear with manual screening 5 5-15 [facility] Work Phone: Urine blood detectionon 12-14 RBC Ql (U) Negative Negative [facility] Work Phone: [phone] Urine clarityon 12-26-2021 Clarity (U) Sl. Cloudy Clear [facility] Work Phone: [phone] Urine color determinationon 12-26-2021 Color (U) Yellow Yellow [facility] Work Phone: Urine glucose detectionon Glucose Ql (U) Normal mg/dl Normal [facility] Work Phone: Urine leukocyte esterase det ection by dipstickon 12-26-2021 Leukocyte esterase Test strip Ql (U) 25 /ul Negative [facility] Work Phone: Urine pHon 12-26-2021 pH (U) 6.0 [pH] 5.0 - 8.0 [facility] [facility] Work Phone: Urine specific gravity measu rementon 12-26-2021 Specific gravity (U) [Rel density] 1.020 1.002-1.030 [facility] Work Phone: Urobilinogen Auto test strip Ql (U)on 12-26-2021 Urobilinogen Ql (U) Normal mg/dl Normal [facility] Work Phone: LABORATORYOrdered By: Timothy Parra [...] EVALon 021 ANES POSTPROC EVAL HNO ID: [id number] Author: Alfonso Khan MD Service: Anesthesiology Author Type: Anesthesiologist Type: Anesthesia Postprocedure Evaluation Filed: 03/17/2021 12:47 PM Note Text: POST ANESTHESIA EVALUATION NOTE : 1950 Procedure Summary Date: 03/17/21 Room / Location: [place] [address] / [facility] Anesthesia Start: 1143 Anesthesia Stop: [...] Other Remarks: Patient will go back to [place] [facility] with his caregiver.. Anesthesia Observations No Documentation SIGNATURE: Alfonso Khan MD PATIENT NAME: Renny Russo DATE: March 17, 2021 TIME: 12:45 PM CSN: [id number] [facility] ANES PRE-OPon 03-17-2021 ANES PRE-OP HNO ID: [id number] Author: Alfonso Khan MD Service: Anesthesiology Author [...] ophthalmic ointment 1 application once daily. - NRYLGMRB-UIKBIOJKD-PICL METH 3.5 MG/ML-10,000 UNIT/ML-0.1% EYE DROPS 1 [...] March 17, 2021 TIME: 11:10 AM CSN: [id number] [facility] NURSING PROGon 03-17-2021 NURSING PROG HNO ID: [id number] Author: Tamara Ruby RN Service: Ophthalmology Author Type: Registered Nurse Type: Nursing Progress Note Filed: 03/17/2021 11:23 AM Note Text: Caregiver from [place] [facility] Junie remains at bedside to assist patient with communication and medical history questions. [facility] OPERATIVE NOon 03-17-2021 OPERATIVE NO HNO ID: [id number] Author: Eduard Verde MD Service: Ophthalmology Author Type: Physician Type: Operative Report Filed: 03/17/2021 12:18 PM Note Text: OPERATIVE/PROCEDURE REPORT OPHTHAMOLOGY LOG ID: [id number] Surgery/Procedure Date: 03/17/2021 Incision/Procedure Start Time: 11:52 AM Incision Close/Procedure End Time: 12:17 PM Surgeon(s)/Proceduralis t(s) and Freight Engineer(s): Surgeon(s) and Role: * Eduard Verde MD [...] 17, 2021 TIME: 12:17 PM PAGER/CONTACT #: [facility] 12-22-2019 [facility] Office Visit (HAYLIE ) RENNY RUSSO ([id number]) 1950 M Date Time Provider Department 12/22/19 [...] Age: [age] year old Sex: male MRN/E# [id number] Last Office Visit: 12/17/2018 DIAGNOSIS: Parafalcine meningioma [...] in mental status. He resides in a [place] [facility] At his office visit on 12/17/2018, his [...] [facility]SH SPEC 12/04/2007 normal - EGD W/O BRS SPECIMEN W/BX 12/04/2007 moderate gastritis No family [...] MD This note was partially generated using [employer] voice recognition system, and there may be some incorrect words, spellings, and punctuation that were not noted in checking the note before saving. Referring Provider: MATTHEW FULLER [[id number]] Allergies As of Date: 12/22/2019 (No Known [...] Status:Closed by MATTHEW FULLER on 12/22/[address] [facility] [address] BRAIN WO/W IVCONon 2019 CT BRAIN [...] base and imaged soft tissues are unremarkable. Night Shift (topogram) images: No additional findings. IMPRESSION: 1. Stable 10 mm partly calcified meningioma left anterior parafalcine with mild mass effect on the left superior frontal gyrus, unchanged. 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 Sharepoint Net Developer: BRIT Transcribe Date/Time: Dec 22 2019 12:47P Dictated by : JHONY RAPP MD This examination was interpreted and the report reviewed and electronically signed by: JHONY RAPP MD on Dec 22 2019 1:00PM EST Normal [facility] PROGRESSon 12-22-2019 PROGRESS HNO ID: [id number] Author: Matthew Fuller Service: ? Author Type: Physician Type: Progress Notes Filed: 12/22/2019 12:07 PM Note Text: NEUROSURGERY FOLLOW UP OFFICE NOTE Matthew Fuller MD Date of visit: December 22, 2019 Patient Name: Mr.Charles Russo Date of : 1950 Current Age: [age] year old Sex: male MRN/E# [id number] Last Office Visit: 12/17/2018 DIAGNOSIS: Parafalcine meningioma [...] in mental status. He resides [place]. At his office visit on 12/17/2018, his [...] MD This note was partially generated using [employer] voice recognition system, and there may be some incorrect words, spellings, and punctuation that were not noted in checking the note before saving. Normal [facility] Culture, urine Bacteria identified Cx Nom (U) Positive [facility] Work Phone: Vital Signs Date Time Vital Sign Value Performing Clinician Facility 07-13-2024 12:49-0400 Body temperature 97.7 [degF] Dr. Kim Hutchinson MD Work Phone: [facility] 07-13-2024 12:49-0400 Diastolic blood pressure 78 mm[Hg] Dr. Kim Hutchinson MD Work Phone: [facility] 07-13-2024 12:49-0400 Heart rate 71 /min Dr. Kim Hutchinson MD Work Phone: [facility] 07-13-2024 12:49-0400 Respiratory rate 18 /min Dr. Kim Hutchinson MD Work Phone: [facility] 07-13-2024 12:49-0400 SaO2% (BldA) [Mass fraction] 96 % Dr. Kim Hutchinson MD Work Phone: [facility] 07-13-2024 12:49-0400 Systolic blood pressure 120 mm[Hg] Dr. Kim Hutchinson MD Work Phone: [facility] 06-07-2024 14:00-0500 Diastolic Blood Pressure Non-Invasive 96 mm[Hg] DR SAMIA MICHEL MD [facility] 06-07-2024 14:00-0500 Heart rate 67 /min DR SAMIA MICHEL MD [facility] 06-07-2024 14:00-0500 Respiratory rate 16 /min DR SAMIA MICHEL MD [facility] 06-07-2024 14:00-0500 Systolic Blood Pressure Non-Invasive 118 mm[Hg] DR SAMIA MICHEL MD [facility] 06-07-2024 13:26-0500 Heart rate 73 /min DR SAMIA MICHEL MD [facility] 06-07-2024 13:26-0500 Respiratory rate 22 /min DR SAMIA MICHEL MD [facility] 06-07-2024 13:00-0500 Diastolic Blood Pressure Non-Invasive 70 mm[Hg] DR SAMIA MICHEL MD [facility] 06-07-2024 13:00-0500 Heart rate 74 /min DR SAMIA MICHEL MD [facility] 06-07-2024 12:43-0500 Blood Pressure Cuff Size DR SAMIA MICHEL MD [facility] 06-07-2024 12:43-[address] SAMIA MICHEL MD [facility] 06-07-2024 12:43-[address] SAMIA MIHCEL MD [facility] 06-07-2024 12:43-0500 Body temperature 97.88 [degF] DR SAMIA MICHEL MD [facility] 06-07-2024 12:43-0500 Diastolic Blood Pressure Non-Invasive 84 mm[Hg] DR SAMIA MICHEL MD [facility] 06-07-2024 12:43-0500 Heart rate 73 /min DR SAMIA MICHEL MD [facility] 06-07-2024 12:43-0500 Systolic Blood Pressure Non-Invasive 134 mm[Hg] DR SAMIA MICHEL MD [facility] 05-26-2024 15:21-0500 Body temperature 97.5 [degF] Dr. Kim Hutchinson MD Work Phone: [facility] 05-26-2024 15:21-0500 Diastolic blood pressure 70 mm[Hg] Dr. Kim Hutchinson MD Work Phone: [facility] 05-26-2024 15:21-0500 Heart rate 71 /min Dr. Kim Hutchinson MD Work Phone: [facility] 05-26-2024 15:21-0500 Respiratory rate 12 /min Dr. Kim Hutchinson MD Work Phone: [facility] 05-26-2024 15:21-0500 SaO2% (BldA) [Mass fraction] 97 % Dr. Kim Hutchinson MD Work Phone: [facility] 05-26-2024 15:21-0500 Systolic blood pressure 116 mm[Hg] Dr. Kim Hutchinson MD Work Phone: [facility] 2024 21:43-0500 Heart rate 67 /min DR YULIET TREVINO DO [facility] 2024 21:43-0500 Respiratory rate 18 /min DR YULIET TREVINO DO [facility] 2024 17:34-0500 Body temperature 98.24 [degF] DR YULIET TREVINO DO [facility] 2024 17:34-0500 Heart rate 74 /min DR YULIET TREVINO DO [facility] 2024 17:34-0500 Respiratory rate 16 /min DR YULIET TREVINO DO [facility] 04-06-2024 12:19-0500 Blood Pressure Location AGUSTIN ACEVES DO [facility] 04-06-2024 12:19-0500 Blood Pressure Method AGUSTIN ACEVES DO [facility] 04-06-2024 12:19-0500 Body temperature 98.06 [degF] AGUSTIN ACEVES DO [facility] 04-06-2024 12:19-0500 Diastolic Blood Pressure Non-Invasive 62 mm[Hg] AGUSTIN ACEVES DO [facility] 04-06-2024 12:19-0500 Heart rate 86 /min AGUSTIN ACEVES DO [facility] 04-06-2024 12:19-0500 Respiratory rate 18 /min AGUSTIN ACEVES DO [facility] 04-06-2024 12:19-0500 Systolic Blood Pressure Non-Invasive 123 mm[Hg] AGUSTIN ACEVES DO [facility] 02-06-2024 11:21-0400 Body mass index (BMI) [Ratio] 22.43 kg/m2 Jumana Soliz 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.SEED TESTER Work Phone: [facility] 02-06-2024 11:21-0400 Body weight 77.1 kg Jumana Soliz 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.SEED TESTER Work Phone: [facility] 02-06-2024 11:21-0400 Respiratory rate 16 /min Jumana Soliz APRN.SEED TESTER Work Phone: [facility] 09-24-2023 11:30-0400 Body temperature 98.24 [degF] SEBAS HARDY MD [facility] 09-24-2023 11:30-0400 Diastolic Blood Pressure Non-Invasive 84 mm[Hg] SEBAS HARDY MD [facility] 09-24-2023 11:30-0400 Heart rate 61 /min SEBAS HARDY MD [facility] 09-24-2023 11:30-0400 Respiratory rate 19 /min SEBAS HARDY MD [facility] 09-24-2023 11:30-0400 Systolic Blood Pressure Non-Invasive 132 mm[Hg] SEBAS HARDY MD [facility] 08-09-2023 18:37-0400 Body mass index (BMI) [Ratio] 20.85 kg/m2 Amilcar Veronica MD Work Phone: [facility] 08-09-2023 18:37-0400 Body temperature 98.2 [degF] Amilcar Veronica MD Work Phone: [facility] 08-09-2023 18:37-0400 Body weight 71.7 kg Amilcar Veronica MD Work Phone: [facility] 08-09-2023 18:37-0400 Diastolic blood pressure 78 mm[Hg] Amilcar Veronica MD Work Phone: [facility] 08-09-2023 18:37-0400 Heart rate 66 /min Amilcar Veronica MD Work Phone: [facility] 08-09-2023 18:37-0400 Respiratory rate 16 /min Amilcar Veronica MD Work Phone: [facility] 08-09-2023 18:37-0400 SaO2% (BldA) [Mass fraction] 98 % Amilcar Veronica MD Work Phone: [facility] 08-09-2023 18:37-0400 Systolic blood pressure 130 mm[Hg] Amilcar Veronica MD Work Phone: [facility] 07-29-2023 21:33-[address] SAMIA MICHEL MD [facility] 07-29-2023 21:33-[address] SAMIA MICHEL MD [facility] 07-29-2023 21:33-0400 Body temperature 99.5 [degF] DR SAMIA MICHEL MD [facility] 07-29-2023 21:33-0400 Body weight 77.[address] SAMIA MICHEL MD [facility] 07-29-2023 21:33-0400 Diastolic Blood Pressure Non-Invasive 68 mm[Hg] DR SAMIA MICHEL MD [facility] 07-29-2023 21:33-0400 Heart rate 70 /min DR SAMIA MICHEL MD [facility] 07-29-2023 21:33-0400 Respiratory rate 16 /min DR SAMIA MICHEL MD [facility] 07-29-2023 21:33-0400 Systolic Blood Pressure Non-Invasive 125 mm[Hg] DR SAMIA MICHEL MD [facility] 07-29-2023 16:28-0400 Heart rate 54 /min [place] ORION 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SEED TESTER [facility] 07-29-2023 15:45-0400 Body temperature 97.34 [degF] [place] 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SEED TESTER [facility] 07-29-2023 15:45-0400 Diastolic Blood Pressure Non-Invasive 77 mm[Hg] [place] 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SEED TESTER [facility] 07-29-2023 15:45-0400 Heart rate 55 /min [place] 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SEED TESTER [facility] 07-29-2023 15:45-0400 Reason For Taking VItal Signs [place] 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SEED TESTER [facility] 07-29-2023 15:45-0400 Respiratory rate 16 /min [place] 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SEED TESTER [facility] 07-29-2023 15:45-0400 Systolic Blood Pressure Non-Invasive 124 mm[Hg] [place] 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SEED TESTER [facility] 07-29-2023 10:59-0400 Body temperature 97.52 [degF] [place] 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SEED TESTER [facility] 07-29-2023 10:59-0400 Diastolic Blood Pressure Non-Invasive 66 mm[Hg] [place] 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SEED TESTER [facility] 07-29-2023 10:59-0400 Heart rate 68 /min [place] 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SEED TESTER [facility] 07-29-2023 10:59-0400 Reason For Taking VItal Signs [place] 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SEED TESTER [facility] 07-29-2023 10:59-0400 Respiratory rate 16 /min [place] 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SEED TESTER [facility] 07-29-2023 10:59-0400 Systolic Blood Pressure Non-Invasive 98 mm[Hg] [place] 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SEED TESTER [facility] 07-29-2023 08:01-0400 Heart rate 69 /min [place] 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SEED TESTER [facility] 07-29-2023 07:23-0400 Body temperature 98.24 [degF] [place] 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SEED TESTER [facility] 07-29-2023 07:23-0400 Diastolic Blood Pressure Non-Invasive 83 mm[Hg] [place] 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SEED TESTER [facility] 07-29-2023 07:23-0400 Reason For Taking VItal Signs [place] 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SEED TESTER [facility] 07-29-2023 07:23-0400 Respiratory rate 16 /min [place] 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SEED TESTER [facility] 07-29-2023 07:23-0400 Systolic Blood Pressure Non-Invasive 126 mm[Hg] [place] 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SEED TESTER [facility] 07-28-2023 17:25-0400 Mean blood pressure 80 mm[Hg] [place] 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SEED TESTER [facility] 07-28-2023 17:10-0400 Heart rate 109 /min [place] 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SEED TESTER [facility] 07-28-2023 15:02-0400 Mean blood pressure 86 mm[Hg] [place] 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SEED TESTER [facility] 07-28-2023 11:52-0400 Mean blood pressure 88 mm[Hg] [place] 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SEED TESTER [facility] 07-28-2023 10:51-0400 Heart rate 129 /min [place] 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SEED TESTER [facility] 07-28-2023 06:00-0400 Heart rate 113 /min [place] 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SEED TESTER [facility] 07-28-2023 05:00-0400 Heart rate 124 /min [place] 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SEED TESTER [facility] 07-28-2023 04:00-0400 Heart rate 122 /min [place] 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SEED TESTER [facility] 07-28-2023 01:57-0400 Body height 182.9 cm JULY BERNY 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SEED TESTER [facility] 07-28-2023 01:57-0400 Body weight 70.5 kg [place] 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SEED TESTER [facility] 07-28-2023 01:57-0400 Body weight 21.07 kg/m2 [place] 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SEED TESTER [facility] 07-28-2023 01:53-0400 Body temperature 98.6 [degF] [place] 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SEED TESTER [facility] 07-27-2023 23:43-0400 Body weight 70.5 kg [place] 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SEED TESTER [facility] 07-27-2023 23:40-0400 Body temperature 98.6 [degF] [place] 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SEED TESTER [facility] 07-27-2023 19:52-0400 Body temperature 98.78 [degF] [place] 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SEED TESTER [facility] 03-06-2022 08:35-0500 Body weight 75.89 kg Garth Moreno MD Work Phone: [facility] 03-06-2022 08:35-0500 Diastolic blood pressure 69 mm[Hg] Garth Moreno MD Work Phone: [facility] 03-06-2022 08:35-0500 Heart rate 82 /min Garth Moreno MD Work Phone: [facility] 03-06-2022 08:35-0500 Systolic blood pressure 109 mm[Hg] Garth Moreno MD Work Phone: [facility] Encounters Encounter Date Encounter Type Care Provider Facility Start: 11-14-2024 End: 11-14-2024 Emergency department patient visit MIKE KIANNA PIMENTEL [facility] Start: 10-30-2024 End: 10-30-[address] Kim Hutchinson MD Work Phone: [facility] [place] Start: 10-30-2024 End: 10-30-[address] Becky Sun MD [facility] [place] Work Phone: Start: 10-30-2024 End: 10-30-2024 ambulatory Becky Sun Facility:[facility] Start: 09-29-2024 End: 09-29-[address] Kim Hutchinson MD Work Phone: [facility] Work Phone: Start: 09-29-2024 End: 09-29-[address] Becky Sun MD -[facility] Work Phone: Start: 09-29-2024 End: 09-29-2024 ambulatory Becky Sun Facility:[facility] Start: 08-27-2024 End: 08-27-[address] Kim Hutchinson MD Work Phone: [facility] Work Phone: Start: 08-27-2024 End: 08-27-2024 Patient encounter procedure Melissa Campbell -Laboratory Work Phone: Start: 08-27-2024 End: 08-27-2024 ambulatory Kim Miedigor Facility:[facility] Start: 08-05-2024 End: 08-05-2024 [facility] Start: 08-05-2024 End: 08-05-2024 Patient encounter procedure BECKY SUN [facility] Start: 07-13-2024 End: 07-13-2024 Patient encounter procedure Garth Hendrix [facility] Work Phone: Start: 07-13-2024 End: 07-13-2024 ambulatory Kim Hutchinson Facility:[facility] Start: 06-07-2024 End: 06-07-2024 Emergency department patient visit DR SAMIA MICHEL MD [facility] Start: 05-26-2024 End: 05-26-2024 Patient encounter procedure Garth FRANCIS [facility] Work Phone: Start: 05-26-2024 End: 05-26-2024 ambulatory Garth FRANCIS Facility:[facility] Start: 04-22-2024 End: 04-22-2024 Emergency department patient visit Jorje Alberto Facility:[facility] Start: 2024 End: 2024 Emergency department patient visit DR YULIET TREVINO DO [facility] Start: 04-06-2024 End: 04-06-2024 Emergency department patient visit AGUSTIN ACEVES DO [facility] Start: 03-31-2024 End: 03-31-2024 ambulatory [facility] Facility:[facility] Start: 02-12-2024 Encounter for genera l adult medical examination without abnormal findings [facility] Start: 02-06-2024 End: 02-06-2024 ambulatory BEECH BLUFF Mikaela [facility] Facility:[facility] Start: 02-06-2024 End: 02-06-2024 Patient encounter procedure Jumana Soliz APRN.SEED TESTER Work Phone: [facility] Comment on above: Acute conjunctivitis of right eye, unspecified acute conjunctivitis type (Primary Dx) Start: 01-23-2024 End: 01-23-2024 ambulatory Kim Miabel Facility:[facility] Start: 12-15-2023 ambulatory Melissa Boggs ty:[facility] Start: 11-15-2023 End: 11-15-2023 ambulatory KASSANDRA MCGOVERN MD Facility:[facility] Start: 11-15-2023 End: 11-15-2023 Patient encounter procedure KASSANDRA MCGOVERN MD [facility] Start: 09-24-2023 End: 09-24-2023 Emergency department patient visit SEBAS HARDY MD [facility] Start: 08-12-2023 Telephone encounter Amilcar Harris MD Work Phone: [facility] Comment on above: Results (MSSA); Need for antibiotic Start: 08-09-2023 End: 08-09-2023 ambulatory KIM HUTCHINSON Facility:[facility] Start: 08-09-2023 End: 08-09-2023 Patient encounter procedure Amilcar Veronica MD Work Phone: [facility] Comment on above: Umbilical discharge (Primary Dx) Start: 08-07-2023 End: 08-07-2023 ambulatory AMY LERNER 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SEED TESTER Facility: Start: 08-07-2023 End: 08-07-2023 Patient encounter procedure AMY LERNER 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SEED TESTER [facility] Start: 07-29-2023 End: 07-29-2023 Emergency department patient visit DR SAMIA MICHEL MD [facility] Start: 07-27-2023 End: 07-29-2023 Evaluation and management of inpatient WINSOME ARRIETA 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SEED TESTER [facility] Start: 07-26-2023 End: 07-26-2023 ambulatory [facility] Work Phone: Start: 07-26-2023 End: 07-26-2023 Patient encounter procedure [facility] Work Phone: Start: 06-07-2023 End: 06-07-2023 ambulatory [facility] Work Phone: Start: 06-07-2023 End: 06-07-2023 Patient encounter procedure [facility] Start: 03-28-2023 End: 03-28-2023 ambulatory [facility] Work Phone: Start: 03-28-2023 End: 03-28-2023 [facility] Work Phone: Start: 01-01-2023 End: 01-01-2023 ambulatory [facility] Work Phone: Start: 01-01-2023 End: 01-01-2023 [facility] Start: 03-06-2022 End: 03-06-2022 Patient encounter procedure Garth Moreno MD Work Phone: [facility] Comment on above: alcohol syndro me (Primary Dx); Development delay; Unspecified intellectual disabilities; Mixed 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); Major depressive disorder, remission status unspecified, unspecified whether recurrent; SYED (generalized anxiety disorder) Start: 02-10-2022 End: 02-10-2022 ambulatory [facility] Work Phone: Start: 02-10-2022 End: 02-10-2022 [facility] Start: 01-16-2022 End: 01-16-2022 ambulatory [facility] Work Phone: Start: 01-16-2022 End: 01-16-2022 Patient encounter procedure [facility] Start: 01-01-2022 End: 01-01-2022 ambulatory [facility] Work Phone: Start: 01-01-2022 End: 01-01-2022 [facility] Start: 12-26-2021 End: 12-26-2021 ambulatory [facility] Work Phone: Start: 12-26-2021 End: 12-26-2021 Patient encounter procedure [facility] Start: 10-26-2021 End: 10-26-2021 Patient encounter procedure MOJGAN FANG MD [facility] Procedures Date Procedure Procedure Detail Performing Clinician Start: 10-30-[address] Kim Hutchinson MD Work Phone: Comment on above: Test Ordered: [id number] Reese 1 and Reese 3 IgGDesmoglein 1 IgG 172 [H ] RU/mL BN Reference Range: Neg: <20Desmoglein 3 IgG 7 RU/mL BN Reference Range: Neg: <20Positive test results might suggest a potential diagnosisof pemphigus. Nevertheless, the definitive clinicalassessment should rely on a comprehensive evaluation thatcombines clinical characteristics with the findings fromadditional supportive tests. These supplementary testsinclude histopathology using standard microscopy, andindirect immunofluorescence on human salt-split skin andmonkey esophagus substrates.Performed at: [facility] [employer] [id number] Director: Desiree Man MD, Phone: [phone] at: [facility] [employer] [id number] Director: Chaparro Samayoa PhD, Phone: [phone] Start: 07-29-2023 Echocardiography MARTINA HARDY MD Comment [...] Start: 12-15-2023 Covid-19 Vaccine () Covid-19 Vaccine ( season) [facility] Start: 12-15-2023 Influenza vaccination Influenza Vacc ine (#1) [facility] Start: 04-15-2023 Advance Directive Discussion Advance Directive Discussion [facility] Start: 12-14-2022 Covid-19 Vaccine () Covid-19 Vaccine () [facility] Start: 12-14-2021 Influenza vaccination INFLUENZA (#1) [facility] Start: 04-15-2021 ADVANCE DIRECTIVE DISCUSSION ADVANCE DIRECTIVE DISCUSSION [facility] Start: 12-03-2017 Colonoscopy COLONOSCOPY [facility] Start: 12-03-2017 COLORECTAL CANCER SCREENING COLORECTAL CANCER SCREENING [facility] Start: 12-03-2017 Screening for malign ant neoplasm of colon [facility] Start: 07-24-2011 Lipid panel Lipid Screening [facility] Start: 07-24-2011 LIPID SCREEN LIPID SCREEN [facility] Start: 07-02-2011 DIABETES SCREEN DIABETES SCREEN [facility] Start: 07-02-2011 Diabetes Screening Diabetes Screenin g [facility] Start: 2010 RSV Vaccine (1 - 1-d ose 60+ series) RSV Vaccine (1 - 1-dose 60+ series) [facility] Start: 2010 RSV Vaccine (1 - Ris k 60-74 years 1-dose series) RSV Vaccine (1 - Risk 60-74 years 1-dose series) [facility] Start: 2000 SHINGRIX VACCINE (1 of 2) SHINGRIX VACCINE (1 of 2) [facility] Start: 1995 COLOGUARD (FIT-DNA) COLOGUARD (FIT-D NA) [facility] Start: [address] COLONOGRAPHY [facility] Start: 1995 FECAL OCCULT BLOOD FECAL OCCULT BLOO D [facility] Start: 1995 Screening for malign ant neoplasm of colon [facility] Start: 1995 SIGMOIDOSCOPY SIGMOIDOSCOPY [facility] Start: 1969 Urine microalbumin profile [facility] Start: 1968 HEPATITIS C SCREENING HEPATITIS C [facility] Start: 1968 Hepatitis C screening Hepatitis C [facility] Start: 1956 Pneumococcal Vaccine : 65+ (1 of 2 - PCV) Pneumococcal Vaccine: 65+ (1 of 2 - PCV) [facility] Start: 1956 PNEUMOCOCCAL: 65+ (1 - PCV) PNEUMOCOCCAL: 65+ (1 - PCV) [facility] Start: 1950 COVID-19 VACCINE (#1) COVID-19 VACCI NE (#1) [facility] Start: 1950 ABDOMINAL AORTIC ANEURYSM SCREENING ABDOMINAL AORTIC ANEURYSM SCREENING [facility] Start: 1950 Abdominal aortic aneurysm screening Abdominal Aortic Aneurysm Screening [facility] Bacteria identified in Wound by Culture ABSCESS AND WOUND CULTURE WITH GRAM STAIN Microbiology Routine Umbilical discharge Ordered: 08/09/2023 [facility] Work Phone: Comment on above: Ordered: 08/09/2023 Immunizations Immunization Date Immunization Notes Care Provider Christa maloney 11-14-2024 tetanus toxoid, redu chantel diphtheria toxoid, and acellular pertussis vaccine, adsorbed MIKE HUTCHISON DO [facility] 12-14-2022 influenza virus vaccine, unspecified formulation [facility] 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 [facility] 02-01-2022 SARS-CoV-2 (CV19)mRNA-1273 bivalent vac [facility] 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[employer] TE[employer] [facility] 03-20-2021 SARS-CoV-2 (COVID-19 ) mRNA-1273 vaccine [facility] 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[employer] TE[employer] [facility] 08-04-2020 SARS-CoV-2 (COVID-19 ) mRNA-1273 vaccine [facility] 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 [facility] Comment on above: Result Comment: 2023: [id number] 07-07-2020 SARS-CoV-2 (COVID-19 ) mRNA-1273 vaccine July 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 [facility] Comment on above: Result Comment: 2023: [id number] 03-17-2008 influenza virus vaccine, unspecified formulation Garth Moreno MD Work Phone: [facility] Work Phone: 02-14-2006 influenza virus vaccine, unspecified formulation Garth Moreno MD Work Phone: [facility] Work Phone: Payers Date Payer Category Payer Medicare [id number] 2023 Self-pay [id number] 2015 Medicaid [id number] 2015 Medicaid [id number] 1990 Medicare [id number] 1990 Medicare [id number] 1950 Unknown [id number] 2.16.8 [id number] 1950 Unknown [id number] 2.16.8 [id number] 1950 Unknown [id number] 2.16.8 [id number] 1950 Unknown [id number] 2.16.8 40.1.476137.3.579.2.627 1950 Unknown [id number] 2.16.8 40.1.818419.3.579.2.627 1950 Unknown [id number] 2.16. [id number] 1950 Unknown [id number] 2.16.8 40.1.465238.3.579.2.627 1950 Unknown [id number] 2.16.8 40.1.190587.3.579.2.627 1950 Unknown [id number] 2.16.8 [id number] 1950 Unknown [id number] 2.16.8 40.1.131247.3.579.2.627 Private Health Insurance [id number] Unknown [id number] 2.16.8 [id number] Unknown [id number] 2.16.8 [id number] Unknown [id number] 2.16.8 [id number] Unknown [id number] 2.16.8 [id number] Unknown [id number] 2.16.8 40.1.666587.3.579.2.462 Unknown [id number] 2.16.8 40.1.376551.3.579.2.462 Unknown [id number] 2.16.8 [id number] Unknown [id number] 2.16.8 [id number] Unknown [id number] 2.16.8 [id number] Social History Date Type Detail Facility Start: 04-03-2019 Tobacco smoking status Heavy t obacco smoker (finding) [facility] Sex Assigned At [facility] Start: 12-02-2017 End: 12-02-2017 Tobacco smoking status NHIS Unknown if ever smoked [facility] Start: 12-02-[address] [facility] Start: 1950 Sex Assigned At Male W [facility] Start: 03-06-2022 End: 04-22-2024 Tobacco smoking status NHIS Smokes tobacco daily [facility] History of tobacco use Cigarette Smoker [facility] Start: 03-06-2022 End: 08-09-2023 Cigarettes smoked current (pack per day) - Reported 0.5 [facility] Start: 03-06-2022 End: 02-06-2024 Tobacco use and exposure Smokeless tobacco non-user [facility] Start: 03-06-2022 End: 02-06-2024 Alcohol intake Current non-drinker of alcohol (finding) [facility] Start: 03-06-2022 Tobacco Comment maybe longer s moke hx difficult to asses [facility] Start: 1950 Sex Assigned At Not on file [facility] Start: 02-24-2022 End: 03-06-2022 Exposure to SARS-CoV-2 (event) Not sure [facility] Start: 12-17-2018 End: 08-09-2023 Tobacco use panel [facility] Adult Depression Screening Assessment 0 [facility] Start: 05-24-2005 Sex Male (finding) [facility] Medical Equipment Procedure Code Equipment Code Equipment Origin al Text Equipment Identifier Dates See Instructions , Glucometer, alcohol swabs, lancets., # 1 EA, 0 Refill(s), Pharmacy: [facility]/pharmacy #[id number], 182.9, cm, 07/28/23 1:57:00 EDT, Height, 70.5, kg, 07/28/23 1:57:00 EDT, Dosing Weight Start: 07-29-2023 See Instructions , Lancets for glucose to be checked TID., # 1 EA, 0 Refill(s), Pharmacy: [facility]/pharmacy #[id number], Type 2 diabetes mellitus, 182.9, cm, 07/28/23 1:57:00 EDT, Height, 70.5, kg, 07/28/23 1:57:00 EDT, Dosing Weight Start: 07-29-2023 See Instructions , 90 Glucometer strips., # 1 EA, 0 Refill(s), Pharmacy: [facility]/pharmacy #[id number], Type 2 diabetes mellitus, 182.9, cm, 07/28/23 1:57:00 EDT, Height, 70.5, kg, 07/28/23 1:57:00 EDT, Dosing Weight Start: 07-29-2023 See Instructions , Glucometer, alcohol swabs, lancets., # 1 EA, 0 Refill(s), Pharmacy: [facility]/pharmacy #[id number], 182.9, cm, 07/28/23 1:57:00 EDT, Height, 70.5, kg, 07/28/23 1:57:00 EDT, Dosing Weight Start: 07-29-2023 See Instructions , Lancets for glucose to be checked TID., # 1 EA, 0 Refill(s), Pharmacy: [facility]/pharmacy #[id number], Type 2 diabetes mellitus, 182.9, cm, 07/28/23 1:57:00 EDT, Height, 70.5, kg, 07/28/23 1:57:00 EDT, Dosing Weight Start: 07-29-2023 See Instructions , 90 Glucometer strips., # 1 EA, 0 Refill(s), [id number], Type 2 diabetes mellitus, 182.9, cm, 07/28/23 1:57:00 EDT, Height, 70.5, kg, 07/28/23 1:57:00 EDT, Dosing Weight Start: 07-29-2023 See Instructions , Glucometer, alcohol swabs, lancets., # 1 EA, 0 Refill(s), [id number], 182.9, cm, 07/28/23 1:57:00 EDT, Height, 70.5, kg, 07/28/23 1:57:00 EDT, Dosing Weight Start: 07-29-2023 See Instructions , Lancets for glucose to be checked TID., # 1 EA, 0 Refill(s), Pharmacy: [facility]/pharmacy #[id number], Type 2 diabetes mellitus, 182.9, cm, 07/28/23 1:57:00 EDT, Height, 70.5, kg, 07/28/23 1:57:00 EDT, Dosing Weight Start: 07-29-2023 See Instructions , 90 Glucometer strips., # 1 EA, 0 Refill(s), [id number], Type 2 diabetes mellitus, 182.9, cm, 07/28/23 1:57:00 EDT, Height, 70.5, kg, 07/28/23 1:57:00 EDT, Dosing Weight Start: 07-29-2023 See Instructions , Glucometer, alcohol swabs, lancets., # 1 EA, 0 Refill(s), [id number], 182.9, cm, 07/28/23 1:57:00 EDT, Height, 70.5, kg, 07/28/23 1:57:00 EDT, Dosing Weight Start: 07-29-2023 See Instructions , Lancets for glucose to be checked TID., # 1 EA, 0 Refill(s), [id number], Type 2 diabetes mellitus, 182.9, cm, 07/28/23 1:57:00 EDT, Height, 70.5, kg, 07/28/23 1:57:00 EDT, Dosing Weight Start: 07-29-2023 See Instructions , 90 Glucometer strips., # 1 EA, 0 Refill(s), [id number], Type 2 diabetes mellitus, 182.9, cm, 07/28/23 1:57:00 EDT, Height, 70.5, kg, 07/28/23 1:57:00 EDT, Dosing Weight Start: 07-29-2023 See Instructions , Glucometer, alcohol swabs, lancets., # 1 EA, 0 Refill(s), [id number], 182.9, cm, 07/28/23 1:57:00 EDT, Height, 70.5, kg, 07/28/23 1:57:00 EDT, Dosing Weight Start: 07-29-2023 See Instructions , Lancets for glucose to be checked TID., # 1 EA, 0 Refill(s), [id number], Type 2 diabetes mellitus, 182.9, cm, 07/28/23 1:57:00 EDT, Height, 70.5, kg, 07/28/23 1:57:00 EDT, Dosing Weight Start: 07-29-2023 See Instructions , 90 Glucometer strips., # 1 EA, 0 Refill(s), [id number], Type 2 diabetes mellitus, 182.9, cm, 07/28/23 1:57:00 EDT, Height, 70.5, kg, 07/28/23 1:57:00 EDT, Dosing Weight Start: 07-29-2023 Start: 10-10-2023 See Instructions , Glucometer, alcohol swabs, lancets., # 1 EA, 0 Refill(s), [facility], 182.9, cm, 07/28/23 1:57:00 EDT, Height, 70.5, kg, 07/28/23 1:57:00 EDT, Dosing Weight Start: 07-29-2023 See Instructions , Lancets for glucose to be checked TID., # 1 EA, 0 Refill(s), Pharmacy: [facility] #4605, Type 2 diabetes mellitus, 182.9, cm, 07/28/23 1:57:00 EDT, Height, 70.5, kg, 07/28/23 1:57:00 EDT, Dosing Weight Start: 07-29-2023 See Instructions , 90 Glucometer strips., # 1 EA, 0 Refill(s), [id number], Type 2 diabetes mellitus, 182.9, cm, 07/28/23 1:57:00 EDT, Height, 70.5, kg, 07/28/23 1:57:00 EDT, Dosing Weight Start: 07-29-2023 See Instructions , Glucometer, alcohol swabs, lancets., # 1 EA, 0 Refill(s), [id number], 182.9, cm, 07/28/23 1:57:00 EDT, Height, 70.5, kg, 07/28/23 1:57:00 EDT, Dosing Weight Start: 07-29-2023 See Instructions , Lancets for glucose to be checked TID., # 1 EA, 0 Refill(s), [id number], Type 2 diabetes mellitus, 182.9, cm, 07/28/23 1:57:00 EDT, Height, 70.5, kg, 07/28/23 1:57:00 EDT, Dosing Weight Start: 07-29-2023 See Instructions , 90 Glucometer strips., # 1 EA, 0 Refill(s), [id number], Type 2 diabetes mellitus, 182.9, cm, 07/28/23 1:57:00 EDT, Height, 70.5, kg, 07/28/23 1:57:00 EDT, Dosing Weight Start: 07-29-2023 See Instructions , Glucometer, alcohol swabs, lancets., # 1 EA, 0 Refill(s), [id number], 182.9, cm, 07/28/23 1:57:00 EDT, Height, 70.5, kg, 07/28/23 1:57:00 EDT, Dosing Weight Start: 07-29-2023 See Instructions , Lancets for glucose to be checked TID., # 1 EA, 0 Refill(s), [id number], Type 2 diabetes mellitus, 182.9, cm, 07/28/23 1:57:00 EDT, Height, 70.5, kg, 07/28/23 1:57:00 EDT, Dosing Weight Start: 07-29-2023 See Instructions , 90 Glucometer strips., # 1 EA, 0 Refill(s), [id number], Type 2 diabetes mellitus, 182.9, cm, 07/28/23 1:57:00 EDT, Height, 70.5, kg, 07/28/23 1:57:00 EDT, Dosing Weight Start: 07-29-2023 See Instructions , Glucometer, alcohol swabs, lancets., # 1 EA, 0 Refill(s), [facility], 182.9, cm, 07/28/23 1:57:00 EDT, Height, 70.5, kg, 07/28/23 1:57:00 EDT, Dosing Weight Start: 07-29-2023 See Instructions , Lancets for glucose to be checked TID., # 1 EA, 0 Refill(s), [id number], Type 2 diabetes mellitus, 182.9, cm, 07/28/23 1:57:00 EDT, Height, 70.5, kg, 07/28/23 1:57:00 EDT, Dosing Weight Start: 07-29-2023 See Instructions , 90 Glucometer strips., # 1 EA, 0 Refill(s), Pharmacy: [facility]/pharmacy #4605, Type 2 diabetes mellitus, 182.9, cm, 07/28/23 1:57:00 EDT, Height, 70.5, kg, 07/28/23 1:57:00 EDT, Dosing Weight Start: 07-29-2023 See Instructions , Glucometer, alcohol swabs, lancets., # 1 EA, 0 Refill(s), Pharmacy: [facility]/pharmacy #4605, 182.9, cm, 07/28/23 1:57:00 EDT, Height, 70.5, kg, 07/28/23 1:57:00 EDT, Dosing Weight Start: 07-29-2023 See Instructions , Lancets for glucose to be checked TID., # 1 EA, 0 Refill(s), Pharmacy: [facility]/pharmacy #4605, Type 2 diabetes mellitus, 182.9, cm, 07/28/23 1:57:00 EDT, Height, 70.5, kg, 07/28/23 1:57:00 EDT, Dosing Weight Start: 07-29-2023 See Instructions , 90 Glucometer strips., # 1 EA, 0 Refill(s), [id number], Type 2 diabetes mellitus, 182.9, cm, 07/28/23 1:57:00 EDT, Height, 70.5, kg, 07/28/23 1:57:00 EDT, Dosing Weight Start: 07-29-2023 Functional Status Date Assessment Result Facility 06-07-2024 Functional Status Minimum assistance [facility] 06-07-[address] [facility] 2024 Functional Status Assistive Device None A [facility] 2024 Functional Status Ambulation in [place], Ambulation in Room [facility] 04-06-2024 Functional Status ID band on, Call device within reach, Bed in low position, Wheels locked, Upper/Half-Length side-rails up, Visitor at bedside, Safety level maintained [facility] 09-24-2023 Functional Status ID band on, Call device within reach, Bed in low position, Wheels locked, Upper/Half-Length side-rails up, Bedside Cart Locked, Visitor at bedside, Safety level maintained [facility] 07-29-2023 Functional Status Awake, Resting [facility] 07-29-2023 Functional Status Room check performed [facility] 07-29-2023 Functional Status [facility] 07-29-2023 Functional Status [facility] 07-29-2023 Functional Status Lunch Percent 20 [facility] 07-29-2023 Functional Status Min A [facility] 07-29-2023 Functional Status [facility] 07-28-2023 Functional Status [facility] 07-28-2023 Functional Status [facility] 07-28-2023 Functional Status Single level home [facility] 07-28-2023 Functional Status [facility] 07-28-[address] [facility] 07-28-2023 Functional Status Sensory Deficits None A [facility] Mental Status Date Assessment Result Facility 06-07-2024 Mental Status Orientation Foll ows simple commands [facility] 06-07-2024 Mental Status [facility] 2024 Mental Status Orientation Oriented x 4 [facility] 2024 Mental Status [facility] 04-06-2024 Mental Status Oriented x 4 [facility] 09-24-2023 Mental Status Orientation Othe r: alert and oriented at baseline [facility] 07-29-2023 Mental Status Forgetful [facility] 07-29-2023 Mental Status Follows simple commands [facility] 07-29-2023 Mental Status [facility] 07-28-2023 Mental Status [facility] Clinical Notes 03-17-2021 to 11-14-2024 Note Date & Type Note Facility 11-14-2024 Hospital Discharg e instructions Patient Education 11/14/2024 11:15:00 Laceration, Face: Skin Glue Face Laceration: Skin Glue A laceration is a cut through the skin. A laceration on your face has been closed with skin glue. This is used on cuts that have smooth edges, and are not infected. Skin glue is best used on clean, straight cuts on face in areas that don't get a lot of tension. In some cases, a lower layer of skin may be sutured before skin glue is put on. The skin glue closes the cut within a few minutes. It also provides a water-resistant cover. No bandage is needed. Skin glue peels off on its own within 5 to 10 days. Home care Your healthcare provider may prescribe an antibiotic. This is to help prevent infection. Follow all instructions for taking this medicine. Take the medicine every day until it is gone or you are told to stop. You should not have any left over. The healthcare provider may prescribe medicines for pain. Follow instructions for taking them. Follow the healthcare provider s instructions on how to care for the cut. Keep the wound clean and dry. You may shower or bathe as usual, but do not use soaps, lotions, or ointments on the wound area, as these may dissolve the glue. Don't scrub the wound. After bathing, pat the wound dry with a soft towel. Don't soak the cut in water. Don't scratch, rub, or pick at the film. Don't place tape directly over the film. Don't apply liquids such as peroxide, ointments, or creams to the wound while the film is in place. Most facial skin wounds heal without problems. But an infection sometimes occurs despite proper treatment. Watch for the signs of infection listed below. Keep the wound out of prolonged direct sunlight, especially in the summer months. Sunburn or sun exposure can increase scarring. Follow-up care Follow up with your healthcare provider, or as advised. If skin glue was used, the film will fall off by itself in 5 to10 days. When to seek medical advice Call your healthcare provider right away if any of these occur: Wound bleeds more than a small amount or bleeding doesn't stop Decreased movement around the injured area Signs of infection: oIncreasing pain in the wound oIncreasing wound redness or swelling oPus or bad odor coming from the wound oFever of 100.4 F (38. C) or as directed by your healthcare provider Wound edges reopen [id number] [employer]. [address] [place] [address]. All rights reserved. This information is not intended as a substitute for professional medical care. Always follow your healthcare professional's instructions. 11/14/2024 11:14:58 Laceration, Face: Suture or Tape Face Laceration: Stitches or Tape A laceration is a cut through the skin. This will require stitches if it is deep. Minor cuts may be treated with surgical tape. Home care Your healthcare provider may prescribe an antibiotic. This is to help prevent infection. Follow all instructions for taking this medicine. Take the medicine every day until it is gone or you are told to stop. You should not have any left over. The healthcare provider may prescribe medicines for pain. Follow instructions for taking them. Follow the healthcare provider s instructions on how to care for the cut. Wash your hands with soap and warm water before and after caring for the cut. This helps prevent infection. If a bandage was applied and it becomes wet or dirty, replace it. Otherwise, leave it in place for the first 24 hours, then change it once a day or as directed. If stitches were used, clean the wound daily: oAfter removing the bandage, wash the area with soap and water. Use a wet cotton swab to loosen and remove any blood or crust that forms. oAfter cleaning, keep the wound clean and dry. Talk with your healthcare provider before putting any antibiotic ointment on the wound. Reapply a fresh bandage. oYou may remove the bandage to shower as usual after the first 24 hours, but don't soak the area in water (no swimming) until the sutures are removed. If surgical tape was used, keep the area clean and dry. If it becomes wet, blot it dry with a towel. Most facial skin wounds heal without problems. But an infection sometimes occurs despite proper treatment. Watch for the signs of infection listed below. Follow-up care Follow up with your healthcare provider as advised. Be sure to return for removal of the stitches as directed. Ask your provider how long stitches should remain in place. If surgical tape closures were used, you may remove them yourself when your provider recommends if they have not fallen off on their own. When to seek medical advice Call your healthcare provider right away if any of these occur: Wound bleeding not controlled by direct pressure Signs of infection, including increasing pain in the wound, increasing wound redness or swelling, or pus or bad odor coming from the wound Fever of 100.4 F (38 C) or higher, or as directed by your healthcare provider Stitches come apart or fall out or surgical tape falls off before 5 days Wound edges reopen Wound changes colors Numbness around the wound [id number] [employer]. [address] [place] [address]. All rights reserved. This information is not intended as a substitute for professional medical care. Always follow your healthcare professional's instructions. Follow Up Care 11/14/2024 09:09:48 With:Go to emergency room if symptoms worsen Address:Unknown When:2-4 days With:KIM HUTCHINSON Address: [address] [place] [id number] [phone] When:2-4 days [facility] 11-14-2024 Note Discharge Instructions Thank you for allowing [facility] to assist you with your healthcare needs. The following is important discharge information regarding your hospital visit. Diagnosis from Today's Visit Fall Laceration of left eyebrow What to Do Next Instructions from Your Care Team Please cleanse the area of the wound at least twice daily with soap and water. Can cover with a bandage if able to keep a bandage in place. Recommend avoiding any antibiotic ointments or oily topical substances as there was a small wound that was repaired with skin glue and this may dissolve the skin glue. If any acute concerns develop regarding any other signs of trauma or injury please return to the emergency department for more emergent evaluation. To have the stitches removed within the next week. The area around the wound will likely be bruised for at least a week. May apply ice over the area for any discomfort or bruising. May give Tylenol for discomfort. Follow-up with PCP within the next week. No qualifying data available. Post Acute Orders No qualifying data available. You Need to Schedule the Following Appointments Follow Up with Go to emergency room if symptoms worsen When:Within 2-4 days Follow Up with KIM HUTCHINSON When:Within 2-4 days Where:[id number] [facility] [place] [address] [phone] Allergies Bactrim amoxicillin Medications Please ask your [...] mouth Three (3) times a day Unchanged clobetasol topical (clobetasol 0.05% topical solution) Unchanged dexamethasone-tobramycin ophthalmic (Tobradex ophthalmic ointment) Unchanged dexamethasone/ neomycin/ polymyxin B ophthalmic (dexamethasone/ neomycin/ polymyxin B 1 mg-3.5 mg-10,000 units/ g ophthalmic ointment) 1 application Ophthalmic Three (3) times a day Unchanged DME [...] morning. To be taken with food. Unchanged multivitamin (Multivitamin) 1 tab(s) by mouth Every day Unchanged mycophenolate mofetil (mycophenolate mofetil 500 mg oral tablet) 2 tab(s) by mouth Two (2) times a day Unchanged nystatin topical (nystatin 100,000 units/ g topical cream) Unchanged oxybutynin (oxybutynin 10 mg/ 24 hr oral tablet, extended release) 1 tab(s) by mouth Once a day Unchanged tacrolimus topical (tacrolimus 0.1% topical ointment) Unchanged tamsulosin (tamsulosin 0.4 mg oral capsule) 1 cap by mouth Once a day Please take this list to your next doctor s visit. Bring all medications you take, including over the counter medications, herbals and other supplements with you to your doctor s visit. Patients and families are reminded to discard old lists and to update any records with all medication providers or retail pharmacies. Education Materials Face Laceration: Skin Glue A laceration is a cut through the skin. A laceration on your face has been closed with skin glue. This is used on cuts that have smooth edges, and are not infected. Skin glue is best used on clean, straight cuts on face in areas that don't get a lot of tension. In some cases, a lower layer of skin may be sutured before skin glue is put on. The skin glue closes the cut within a few minutes. It also provides a water-resistant cover. No bandage is needed. Skin glue peels off on its own within 5 to 10 days. Home care Your healthcare provider may prescribe an antibiotic. This is to help prevent infection. Follow all instructions for taking this medicine. Take the medicine every day until it is gone or you are told to stop. You should not have any left over. The healthcare provider may prescribe medicines for pain. Follow instructions for taking them. Follow the healthcare provider s instructions on how to care for the cut. Keep the wound clean and dry. You may shower or bathe as usual, but do not use soaps, lotions, or ointments on the wound area, as these may dissolve the glue. Don't scrub the wound. After bathing, pat the wound dry with a soft towel. Don't soak the cut in water. Don't scratch, rub, or pick at the film. Don't place tape directly over the film. Don't apply liquids such as peroxide, ointments, or creams to the wound while the film is in place. Most facial skin wounds heal without problems. But an infection sometimes occurs despite proper treatment. Watch for the signs of infection listed below. Keep the wound out of prolonged direct sunlight, especially in the summer months. Sunburn or sun exposure can increase scarring. Follow-up care Follow up with your healthcare provider, or as advised. If skin glue was used, the film will fall off by itself in 5 to10 days. When to seek medical advice Call your healthcare provider right away if any of these occur: Wound bleeds more than a small amount or bleeding doesn't stop Decreased movement around the injured area Signs of infection: oIncreasing pain in the wound oIncreasing wound redness or swelling oPus or bad odor coming from the wound oFever of 100.4 F (38. C) or as directed by your healthcare provider Wound edges reopen [id number] [employer]. [address] [place] [address], [place] [address]. All rights reserved. This information is not intended as a substitute for professional medical care. Always follow your healthcare professional's instructions. Face Laceration: Stitches or Tape A laceration is a cut through the skin. This will require stitches if it is deep. Minor cuts may be treated with surgical tape. Home care Your healthcare provider may prescribe an antibiotic. This is to help prevent infection. Follow all instructions for taking this medicine. Take the medicine every day until it is gone or you are told to stop. You should not have any left over. The healthcare provider may prescribe medicines for pain. Follow instructions for taking them. Follow the healthcare provider s instructions on how to care for the cut. Wash your hands with soap and warm water before and after caring for the cut. This helps prevent infection. If a bandage was applied and it becomes wet or dirty, replace it. Otherwise, leave it in place for the first 24 hours, then change it once a day or as directed. If stitches were used, clean the wound daily: oAfter removing the bandage, wash the area with soap and water. Use a wet cotton swab to loosen and remove any blood or crust that forms. oAfter cleaning, keep the wound clean and dry. Talk with your healthcare provider before putting any antibiotic ointment on the wound. Reapply a fresh bandage. oYou may remove the bandage to shower as usual after the first 24 hours, but don't soak the area in water (no swimming) until the sutures are removed. If surgical tape was used, keep the area clean and dry. If it becomes wet, blot it dry with a towel. Most facial skin wounds heal without problems. But an infection sometimes occurs despite proper treatment. Watch for the signs of infection listed below. Follow-up care Follow up with your healthcare provider as advised. Be sure to return for removal of the stitches as directed. Ask your provider how long stitches should remain in place. If surgical tape closures were used, you may remove them yourself when your provider recommends if they have not fallen off on their own. When to seek medical advice Call your healthcare provider right away if any of these occur: Wound bleeding not controlled by direct pressure Signs of infection, including increasing pain in the wound, increasing wound redness or swelling, or pus or bad odor coming from the wound Fever of 100.4 F (38 C) or higher, or as directed by your healthcare provider Stitches come apart or fall out or surgical tape falls off before 5 days Wound edges reopen Wound changes colors Numbness around the wound [id number] [employer]. [address] [place] [address], [place] [address]. All rights reserved. This information is not intended as a substitute for professional medical care. Always follow your healthcare professional's instructions. Additional Information VACCINATE! IT SAVES LIVES! Members of the community who have not yet received the COVID-19 vaccine and would like to receive it can visit one of [facility] vaccine clinics. There are many vaccine clinic locations within the [facility]. For locations and available times, please visit [email or web address] [email or web address] It is important to note that some COVID mobile vaccine clinics are held outdoors and may be canceled in rainy or stormy conditions. To learn more about pediatric vaccinations (ages 5-11), we invite you to visit the [facility] webpage. https://www.[employer].org/p ages/3527-Fwubw-Cooezpzxnwo-Freq ijazaa-Qfssx-Lxyjziozx.html To learn more about the COVID-19 vaccine, we invite you to visit the CDC website for a list of frequently asked questions. https://www.cdc.gov/coronavirus/ 2019-ncov/vaccines/faq.html [facility] Patient Portal Access Instructions: Stay connected with your healthcare team and access your personal medical information anytime with the [facility] Patient Portal. If you would like a full copy of your medical records please contact the [facility] Medical Records Department Saturday through Saturday between 8a.m. and 4:30p.m. Please follow the directions below to access the portal: 1.Access the email account you provided upon registration to the hospital.2.Look for an invitation email from [facility].3.Open the email and access the invitation link: Accept Invitation to [facility]4.Fill in the required blanco to create your account. Sign into [email or web address] with your username and password that you [...] you will allow to register on the [facility] Patient Portal for access to your information. You can also access the [facility] Patient Portal on the [employer]. Simply click on Health Records under Health Data and then click on the [employer] logo. HOW TO SAFELY DISPOSE OF PRESCRIPTION [...] Call your local pharmacy or go to [email or web address] [email or web address] to find one close to you.3.Make use of household items: Use cat litter or old coffee grounds to dispose medications if other options are not available. Mix your drugs with these household products, seal them in an airtight container and throw it into the garbage. Call [facility]: [phone] to be sure your drugs can be [...] a CHART COPY Signatures Patient Education Materials Laceration, Face: Skin Glue Laceration, Face: Suture or Tape Medication Leaflets My discharge plan and instructions have been reviewed and explained to me and I,RENNY RUSSO understand my current condition and have read and understand these discharge instructions. I have received a written copy of the plan/instructions. If I have questions, I am aware that I should contact my doctor. 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 Multiplanar reformatted images are provided for review. Automated exposure control, iterative reconstruction, and/or weight based adjustment of the mA/kV was utilized to reduce the radiation dose to as low as reasonably achievable. COMPARISON: None. HISTORY: ORDERING SYSTEM PROVIDED HISTORY: Reason for Exam: fall FINDINGS: Motion degraded examination with blurring. BONES/ALIGNMENT: lateral masses of C1 are symmetrically aligned with C2. No jumped or perched facets. Vertebral body heights are maintained. There is mild multilevel cervical spondylosis with facet and uncovertebral joint arthrosis. No suspicious osseous lesions. Prevertebral soft tissues are within normal limits. C1-C2 degenerative changes. Preservation of the normal cervical lordosis without significant spondylolisthesis. No severe spinal canal or foraminal narrowing. Thyroid gland appears homogeneous. Emphysema. Biapical nodular pleural thickening and scarring. IMPRESSION: 1. Motion degraded examination. No acute cervical spine fracture or traumatic spondylolisthesis. 2. Emphysema with biapical nodular pleural thickening and scarring. 3. Additional findings as above. Interpreted by: Richy Cruz Preliminary Report By: Richy Cruz Electronically signed By Richy Cruz Dictated Date: 11/14/2024 10:45:08 AM Prelim Date: 11/14/2024 10:48:00 AM Sign Date: 11/14/2024 10:48:00 AM Ordering Provider: MIKE HUTCHISON [facility]08-02-2025 Note* Exam Date Time Procedure Performing Provider Status 11/14/24 10:[address] Maxillofacial w/o Contrast RICHY CRUZ MD; Auth (Verified) [id number] ORIGINAL EXAMINATION: CT OF THE FACE WITHOUT CONTRAST 11/14/2024 10:37 am TECHNIQUE: CT of the face was performed without the administration of intravenous contrast. Multiplanar reformatted images are provided for review. Automated exposure control, iterative reconstruction, and/or weight based adjustment of the mA/kV was utilized to reduce the radiation dose to as low as reasonably achievable. COMPARISON: None HISTORY: ORDERING SYSTEM PROVIDED HISTORY: Reason for Exam: fall FINDINGS: Significantly degraded examination due to patient motion with blurring. Edentulous. Polypoid mucosal thickening of the right maxillary sinus. Mild circumferential mucosal thickening of the left maxillary sinus. Ostiomeatal units are patent. There is mild partial opacification of the bilateral ethmoid air cells. Sphenoid sinuses are aerated. Nasal septum is midline. Partial opacification of the right frontal sinus. No hemosinus. No definite fracture. There is a bandage in asymmetric soft tissue swelling of the left periorbital/forehead soft tissues there could be a small left frontal subcutaneous hematoma measuring approximately 1.4 cm. For evaluation of the intracranial structures refer to same day dedicated CT head. Mild asymmetric left periorbital soft tissue swelling. The TMJ joints are maintained. IMPRESSION: 1. Significantly degraded examination due to patient motion with blurring. 2. No definite fracture. 3. Mild asymmetric left periorbital soft tissue swelling with swelling extending to the left frontal region where there appears to be a small bandage and a small subcutaneous hematoma. Posttraumatic in etiology. 4. As further warranted repeat examination can be performed. 5. Mild sinus disease as described above. Interpreted by: Richy Cruz Preliminary Report By: Richy Cruz Electronically signed By Richy Cruz Dictated Date: 11/14/2024 10:40:36 AM Prelim Date: 11/14/2024 10:44:56 AM Sign Date: 11/14/2024 10:44:56 AM Ordering Provider: MIKE [facility]08-02-2025 Note* Exam Date Time Procedure Performing Provider Status 11/14/24 10:[address] Head or Brain w/o Contrast [facility] JAN[facility]T NORTON DO; Auth (Verified) [id number] ORIGINAL EXAMINATION: CT OF THE HEAD WITHOUT CONTRAST 11/14/2024 10:36 am TECHNIQUE: CT of the head was performed without the administration of intravenous contrast. Automated exposure control, iterative reconstruction, and/or weight based adjustment of the mA/kV was utilized to reduce the radiation dose to as low as reasonably achievable. COMPARISON: None. HISTORY: ORDERING SYSTEM PROVIDED HISTORY: Reason for Exam: fall at [facility]. FINDINGS: Study limited by persistent patient motion. BRAIN/VENTRICLES: There is no acute intracranial hemorrhage, mass effect or midline shift. No abnormal extra-axial fluid collection. The xiong-white differentiation is maintained without evidence of an acute infarct. There is no evidence of hydrocephalus. A calcified meningioma associated with the anterior falx is unchanged from prior study. There is moderate diffuse cerebellar atrophy and mild scattered cerebral atrophy unchanged from prior study. ORBITS: The visualized portion of the orbits demonstrate no acute abnormality. SINUSES: Visualized paranasal sinuses show developing polyp or retention cyst in the right maxillary sinus, the remaining paranasal sinuses are clear. SOFT TISSUES/SKULL: No acute abnormality of the visualized skull or soft tissues. IMPRESSION: 1. No acute intracranial abnormality. 2. Stable calcified meningioma associated with the anterior falx. 3. Developing polyp or retention cyst in the right maxillary sinus. 4. 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 Interpreted by: Jefferson Norton DO Preliminary Report By: Jefferson Norton DO Electronically signed By Jefferson Norton DO Dictated Date: 11/14/2024 10:40:01 AM Prelim Date: 11/14/2024 10:44:46 AM Sign Date: 11/14/2024 10:44:46 AM Ordering Provider: MIKE HUTCHISON [facility]02-23-2025 Hospital Discharge instructions Patient Education 06/07/2024 15:54:56 Seizure, New Onset, Unknown Cause (Adult) Seizure: New Onset with Unknown Cause (Adult) You have had a seizure today. A seizure happens when a burst of random, uncontrolled electrical activity occurs in the brain. A seizure can have many causes. Often it s not possible to figure out theexact cause of a seizure from a single exam. You might need other tests. Having a single seizure doesn t mean that you will continue to have seizures or that you have epilepsy. But until doctors knowthe cause of your seizure, you should assume that another seizure is possible. Home care Follow these tips when caring for yourself at home. For this seizure: Seizures aren t predictable. So avoid doing anything that might cause danger to you or other peopleif you have another seizure. Don t drive, [...] 911. The person shouldn t try to forceanything in your mouth once the seizure begins. This could harm your teeth or jaw. After a seizure, you may be drowsy or confused. The person should stay with you until you are fullyawake. The person shouldn t offer you anything to eat or drink during that time. Call 911 or go to the emergency department so that you can be looked at. Follow-up care Follow up with your healthcare provider, or as advised. You may need other tests to help figure outwhat caused your seizure. These tests may include [...] vehicles will be told. 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 [address] [place] [address]. All rights reserved. This information is not intended as a substitute for professional medical care. Always follow yourhealthcare professional's instructions. 06/07/2024 15:54:48 Sinusitis (Antibiotic Treatment) Sinusitis (Antibiotic Treatment) The sinuses are air-filled spaces within the bones of the face. They connect to the inside of the nose. Sinusitis is an inflammation of the tissue that lines the sinuses. Sinusitis can occur during acold. It can also happen due to allergies to pollens and other particles in the air. Sinusitis can cause symptoms of sinus congestion and a feeling of fullness. A sinus infection causes fever, headache, and facial pain. There is often green or yellow fluid draining from the nose or into the back ofthe throat (post-nasal drip). You have been given antibiotics to treat this condition. Home care Take the full course of antibiotics as instructed. Do not stop taking them, even when you feel better. Drink plenty of water, hot tea, and other liquids. This may help thin nasal mucus. It also may helpyour sinuses drain fluids. Heat may help soothe painful areas of your face. Use a towel soaked in hot water. Or, public administration professor the shower and direct the warm spray onto your face. Using a vaporizer along with a menthol rub at nightmay also help soothe symptoms. An expectorant with guaifenesin may help thin nasal mucus and help your sinuses drain fluids. You can use an jkto-kkf-umxkden decongestant, unless a similar medicine was prescribed [...] with high blood pressure should not use decongest ants. They can raise blood pressure.) Zbwr-twe-jysflcj antihistamines may help if allergies contributed to your sinusitis. Do not use nasal rinses or irrigation during an acute sinus infection, unless your healthcare provider tells you to. Rinsing may spread the infection to other areas in your sinuses. Use acetaminophen or ibuprofen to control pain, unless another pain medicine was prescribed to you.If you have chronic liver or kidney disease [...] up to date with of your vaccines. 4881-7812 [employer]. [address] [place] [address]. All rights reserved. This information is not intended as a substitute for professional medical care. Always follow yourhealthcare professional's instructions. Follow Up Care 06/07/2024 12:43:01 With:KIM HUTCHINSON Address: [facility] [place] [address] [phone] When:2-4 days [facility] 02-23-2025 Note Discharge Instructions Thank you for allowing [facility] to assist you with your healthcare needs. [...] Up with KIM HUTCHINSON When:Within 2-4 days Where:[facility] [address] [facility] [place] [address] [phone] Allergies Bactrim amoxicillin Medications Please ask your [...] it s not possible to figure out theexact cause of a seizure from a single exam. You might need other tests. Having a single seizure doesn t mean that you will continue to have seizures or that you have epilepsy. But until doctors knowthe cause of your seizure, you should assume that another seizure is possible. Home care Follow these tips when caring for yourself at home. For this seizure: Seizures aren t predictable. So avoid doing anything that might cause danger to you or other peopleif you have another seizure. Don t drive, [...] 911. The person shouldn t try to forceanything in your mouth once the seizure begins. This could harm your teeth or jaw. After a seizure, you may be drowsy or confused. The person should stay with you until you are fullyawake. The person shouldn t offer you anything to eat or drink during that time. Call 911 or go to the emergency department so that you can be looked at. Follow-up care Follow up with your healthcare provider, or as advised. You may need other tests to help figure outwhat caused your seizure. These tests may include [...] vehicles will be told. 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 [address] [place] [address]. All rights reserved. This information is not intended as a substitute for professional medical care. Always follow yourhealthcare professional's instructions. Sinusitis (Antibiotic Treatment) The sinuses are air-filled spaces within the bones of the face. They connect to the inside of the nose. Sinusitis is an inflammation of the tissue that lines the sinuses. Sinusitis can occur during acold. It can also happen due to allergies to pollens and other particles in the air. Sinusitis can cause symptoms of sinus congestion and a feeling of fullness. A sinus infection causes fever, headache, and facial pain. There is often green or yellow fluid draining from the nose or into the back ofthe throat (post-nasal drip). You have been given antibiotics to treat this condition. Home care Take the full course of antibiotics as instructed. Do not stop taking them, even when you feel better. Drink plenty of water, hot tea, and other liquids. This may help thin nasal mucus. It also may helpyour sinuses drain fluids. Heat may help soothe painful areas of your face. Use a towel soaked in hot water. Or, public administration professor the shower and direct the warm spray onto your face. Using a vaporizer along with a menthol rub at nightmay also help soothe symptoms. An expectorant with guaifenesin may help thin nasal mucus and help your sinuses drain fluids. You can use an qrfk-nbn-jtkffeq decongestant, unless a similar medicine was prescribed [...] with high blood pressure should not use decongest ants. They can raise blood pressure.) Nrdf-was-slwvodf antihistamines may help if allergies contributed to your sinusitis. Do not use nasal rinses or irrigation during an acute sinus infection, unless your healthcare provider tells you to. Rinsing may spread the infection to other areas in your sinuses. Use acetaminophen or ibuprofen to control pain, unless another pain medicine was prescribed to you.If you have chronic liver or kidney disease [...] up to date with of your vaccines. 9354-4301 [employer]. [address] [place] [address]. All rights reserved. This information is not intended as a substitute for professional medical care. Always follow yourhealthcare professional's instructions. Additional Information VACCINATE! IT SAVES LIVES! Members of the community who have not yet received the COVID-19 vaccine and would like to receive it can visit one of [facility] vaccine clinics. There are many vaccine clinic locations within the [facility]. For locations and available times, please visit www.[email or web address].[place].gov/. It is important to note that some COVID mobile vaccine clinics are held outdoors and may be canceled in rainy or stormy conditions. To learn more about pediatric vaccinations (ages 5-11), we invite you to visit the [facility] webpage. https://www.[facility].org/pages/3155-Wwgxi-Flaaueveuqb-Kdssuyadwt-Duudu-Vlf stions.htmlTo learn more about the COVID-19 vaccine, we invite you to visit the CDC website for a list of frequently asked questions. https://www.cdc.gov/coronavirus/2019-ncov/vaccines/faq.html [facility] Patient Portal Access Instructions: Stay connected with your healthcare team and access your personal medical information anytime with the [facility] Patient Portal. If you would like a full copy of your medical records please contact the [facility] Medical Records Department Saturday through Saturday between 8a.m. and 4:30p.m. Please follow the directions below to access the portal: 1.Access the email account you provided upon registration to the [facility].2.Look for an invitation email from [facility].3.Open the email and access the invitation link: Accept Invitation to [facility]4.Fill in the required blanco to create your account. Sign into [email or web address] with your username and password that you [...] you will allow to register on the [facility] Patient Portal for access to your information. You can also access the [facility] Patient Portal on the BeHome247. Simply click on Health Records under [employer] and then click on the SHADO logo. HOW TO SAFELY DISPOSE OF PRESCRIPTION [...] Call your local pharmacy or go to http://Smarp Oy.[employer]/3G5Em4m to find one close to you.3.Make use of household items: Use cat litter or old coffee grounds to dispose medications if other options arenot available. Mix your drugs with these household products, seal them in an airtight container andthrow it into the garbage. Call [facility]: [phone] to be sure your drugs can be [...] aware that I should contact my doctor. Patient/Safety Patrol Officer Signature: Date/Time: Relationship to Patient: Witness Name/Signature: Date/Time: [facility]02-23-2025 Note* Exam Date Time Procedure Performing Provider Status 06/07/24 2:[address] Head or Brain w/o Contrast Danita HERNANDEZ MD; Auth (Verified) [id number] ORIGINAL EXAMINATION: CT OF THE HEAD WITHOUT [...] Sign Date: 06/07/2024 2:19:30 PM Ordering Provider: [facility]02-23-2025 Note* Exam Date Time Procedure Performing Provider Status 06/07/24 2:11 PM XR Chest 1 View ASHOK HERNANDEZ MD; Aut h (Verified) [id number] ORIGINAL EXAMINATION: ONE XRAY VIEW OF THE [...] Date: 06/07/2024 2:16:33 PM Ordering Provider: SAMIA [facility]02-23-2025 Nurse Progress note Pt Guardian is Maggie Mckeon phone #[phone]. Pt Therapeutic Massage Technician named Fany is in room with pt and stated I'm the closest thing to family he has, but has no POA status. Digitally Signed by Swapnil Saldivar RN on 06/07/2024 01:27 PM [facility]02-23-2025 Note* Exam Date Time Procedure Performing Provider Status 06/07/24 12:48 PM EKG [ED AOH] - CV MD MARILU, DASHA Claire MD; Auth (Verified) ECG Final Report Sinus rhythm Left axis deviation Abnormal T, consider ischemia, lateral leads Electronic Signature: MD MARILU, SAMIA YOON 06/07/2024 15:55:54 [facility]02-11-2025 Evaluation note* Diagnosis Onset Date Resolution Status Admit Date Cellulitis of right eyelid acute May 26, 2024 3:05pm Conjunctivitis, right eye acute May 26, 2024 3:05pm [facility] Work Phone: 1(334) 491-672301-12-2025 Note. MICRO - Microbiology PROCEDURE: Blood Culture [...] Locations *1: This test was performed at: [facility], [address] [place] [address], [address] [place], [place] [address]-12-2025 Note. MICRO - Microbiology PROCEDURE: Blood Culture [...] Locations *1: This test was performed at: [facility], [address] [place] [address], [address]- , [facility]01-06-2025 Emergency department Discharge summary Discharge Instructions Thank you for allowing [facility] to assist you with your healthcare needs. [...] with KIM HUTCHINSON When:Within 2-4 days Where:[address] [place] [address]- [phone] Allergies Bactrim amoxicillin Medications Please ask your [...] or higher after 2 days on antibiotics 5148-7663 [employer]. [address] [place] [address]. All rights reserved. This information is not intended as a substitute for professional medical care. Always follow yourhealthcare professional's instructions. Additional Information VACCINATE! IT SAVES LIVES! Members of the community who have not yet received the COVID-19 vaccine and would like to receive it can visit one of [facility] vaccine clinics. There are many vaccine clinic locations within the [facility]. For locations and available times, please visit www.gettheshot.coronavirus.[place].gov/. It is important to note that some COVID mobile vaccine clinics are held outdoors and may be canceled in rainy or stormy conditions. To learn more about pediatric vaccinations (ages 5-11), we invite you to visit the [facility] webpage. https://www.[facility].org/pages/4756-Ykyew-Ofwocfrtyge-Fsqqvqbgkj-Euqmp-Vsw stions.htmlTo learn more about the COVID-19 vaccine, we invite you to visit the CDC website for a list of frequently asked questions. https://www.cdc.gov/coronavirus/2019-ncov/vaccines/faq.html [facility] Patient Portal Access Instructions: Stay connected with your healthcare team and access your personal medical information anytime with the [facility] Patient Portal. If you would like a full copy of your medical records please contact the [facility] Medical Records Department Saturday through Saturday between 8a.m. and 4:30p.m. Please follow the directions below to access the portal: 1.Access the email account you provided upon registration to the [facility].2.Look for an invitation email from [facility].3.Open the email and access the invitation link: Accept Invitation to [facility]4.Fill in the required blanco to create your account. Sign into [email or web address] with your username and password that you [...] you will allow to register on the [facility] Patient Portal for access to your information. You can also access the [facility] Patient Portal on the [employer] weston. Simply click on Health Records under [employer] and then click on the SHADO logo. HOW TO SAFELY DISPOSE OF PRESCRIPTION [...] Call your local pharmacy or go to http://Smarp Oy.[employer]/5L0Or5h to find one close to you.3.Make use of household items: Use cat litter or old coffee grounds to dispose medications if other options arenot available. Mix your drugs with these household products, seal them in an airtight container andthrow it into the garbage. Call [facility]: [phone] to be sure your drugs can be [...] aware that I should contact my doctor. Patient/Safety Patrol Officer Signature: Date/Time: Relationship to Patient: Witness Name/Signature: Date/Time: [facility] Alesharigo [id number] Hospital Discharge instructions Patient Education 2024 18:09:03 [...] or higher after 2 days on antibiotics 8499-3351 [employer]. [address] [place] [address], [place] [address]. All rights reserved. This information is not intended as a substitute for professional medical care. Always follow yourhealthcare professional's instructions. Follow Up Care 2024 17:26:27 With:Go to emergency room if symptoms worsen Address:Unknown When:2-4 days With:KIM HUTCHINSON Address: [address] [place] [address] [place], [place] [id number] [phone] When:2-4 days [facility] 01-06-2025 Note* Exam Date Time Procedure Performing Provider Status 04/20/24 8:[address] Orbit Sella etc. w/ Contrast SOUTH DEGROOT MD; Auth (Gxxuapzl) [id number] ORIGINAL EXAMINATION: CT OF THE ORBIT WITH [...] Date: 2024 8:37:58 PM Ordering Provider: BRADLEY [facility]12-23-2024 Hospital Discharge instructions Patient Education 04/06/2024 12:45:30 [...] or higher after 2 days on antibiotics 7549-5861 [employer]. [address] [place] [address]. All rights reserved. This information is not intended as a substitute for professional medical care. Always follow yourhealthcare professional's instructions. Follow Up Care 04/06/2024 12:08:07 With:KIM HUTCHINSON Address: [address] [place] [phone] [phone] When:2-4 days [facility] 12-23-2024 Note Discharge Instructions Thank you for allowing [facility] to assist you with your healthcare needs. [...] with KIM HUTCHINSON When:Within 2-4 days Where:[address] [phone] Allergies NKA Medications Please ask your primary [...] or retail pharmacies. Medication Leaflets doxycycline (oral/injection) (DOX jose g garcia) Acticlate, Adoxa, Alodox, Avidoxy, Doryx, Doryx MPC, Lymepak, Mondoxyne NL, Monodox, Morgidox, Morgidox 5d842fh, Morgidox 8j062xi, Okebo, Oracea, Targadox What is the most [...] or life-threatening conditions such as anthrax or Mounds spotted fever. The benefit of treating a [...] may report side effects to FDA at 2-179-WNO-0135. What other drugs will affect doxycycline? Sometimes it is not safe to use certain medications at the same time. Some drugs can affect your blood levels of other drugs you take, which may increase side effects or make the medications less effective. Other drugs may affect doxycycline, including prescription and tjgd-pdx-uhjjayx medicines, vitamins, and herbal products. Tell your [...] to ensure that the information provided by [employer]. ('Mult[employer]') is accurate, up-to-date, and complete, but no guarantee is made to that effect. Drug information contained herein may be time sensitive. Pearl.com information has been compiled for use by healthcare practitioners and consumers in the [place] and therefore [employer]com does not warrant that uses outside of the [place] are appropriate, unless specifically indicated otherwise. [employer] drug information does not endorse drugs, diagnose patients or recommend therapy. [employer] drug information isan informational resource designed to [...] effective or appropriate for any given patient. [employer] does not assume any responsibility for any aspect of healthcare administered with the aid of information [employer] provides. The information contained herein is not intended to cover all possible uses, directions, precautions, warnings, drug interactions, allergic reactions, or adverse effects. If you have questions about the drugs you are taking, check with your doctor, nurse or pharmacist. Copyright 3270-[address] [facility] [employer]. Version: 25.02. Revision Date: 04/01/2024. cephalexin (sef a DAREK [...] may report side effects to FDA at 8-001-HWD-2516. What other drugs will affect cephalexin? Tell your doctor about all your other medicines, especially: metformin; or probenecid. This list is not complete. Other drugs may affect cephalexin, including prescription and lqsv-lzj-thxyuto medicines, vitamins, and herbal products. Not all [...] to ensure that the information provided by [employer]. ('[employer]') is accurate, up-to-date, and complete, but no guarantee is made to that effect. Drug information contained herein may be time sensitive. [employer] information has been compiled for use by healthcare practitioners and consumers in the [place] and therefore [employer] does not warrant that uses outside of the [place] are appropriate, unless specifically indicated otherwise. [employer] drug information does not endorse drugs, diagnose patients or recommend therapy. [employer] drug information isan informational resource designed to [...] effective or appropriate for any given patient. [employer] does not assume any responsibility for any aspect of healthcare administered with the aid of information [employer] provides. The information contained herein is not intended to cover all possible uses, directions, precautions, warnings, drug interactions, allergic reactions, or adverse effects. If you have questions about the drugs you are taking, check with your doctor, nurse or pharmacist. Copyright 6006-2174 [employer]. Version: 03.15. Revision Date: 11/14/2022. Education Materials Cellulitis Cellulitis [...] or higher after 2 days on antibiotics 1549-0987 [employer]. [address] [place], [place] [address]. All rights reserved. This information is not intended as a substitute for professional medical care. Always follow yourhealthcare professional's instructions. Additional Information VACCINATE! IT SAVES LIVES! Members of the community who have not yet received the COVID-19 vaccine and would like to receive it can visit one of [facility] vaccine clinics. There are many vaccine clinic locations within the [facility]. For locations and available times, please visit www.gettheshot.coronavirus.[place].gov/. It is important to note that some COVID mobile vaccine clinics are held outdoors and may be canceled in rainy or stormy conditions. To learn more about pediatric vaccinations (ages 5-11), we invite you to visit the [facility] webpage. https://www.akSTI Technologiess.org/pages/2965-Piobx-Mmkxefssbmm-Mloeyynwfu-Naxiu-Msv stions.htmlTo learn more about the COVID-19 vaccine, we invite you to visit the CDC website for a list of frequently asked questions. https://www.cdc.gov/coronavirus/2019-ncov/vaccines/faq.html [facility] Patient Portal Access Instructions: Stay connected with your healthcare team and access your personal medical information anytime with the [facility] Patient Portal. If you would like a full copy of your medical records please contact the [facility] Medical Records Department Saturday through Saturday between 8a.m. and 4:30p.m. Please follow the directions below to access the portal: 1.Access the email account you provided upon registration to the [facility].2.Look for an invitation email from [facility].3.Open the email and access the invitation link: Accept Invitation to [facility]4.Fill in the required blanco to create your account. Sign into [email or web address] with your username and password that you [...] you will allow to register on the [facility] Patient Portal for access to your information. You can also access the [facility] Patient Portal on the BeHome247. Simply click on Health Records under [employer] and then click on the SHADO logo. HOW TO SAFELY DISPOSE OF PRESCRIPTION [...] Call your local pharmacy or go to http://Smarp Oy.[employer]/9R9Df2r to find one close to you.3.Make use of household items: Use cat litter or old coffee grounds to dispose medications if other options arenot available. Mix your drugs with these household products, seal them in an airtight container andthrow it into the garbage. Call [facility]: [phone] to be sure your drugs can be [...] aware that I should contact my doctor. Patient/Safety Patrol Officer Signature: Date/Time: Relationship to Patient: Witness Name/Signature: Date/Time: [facility]10-24-2024 NoteHNO ID: [id number] Author: JUMANA SOLIZ APRN.SEED TESTER Service: ? Author Type: Nurse Practitioner Type: [...] (Patient not taking: Reported on 02/06/2024) timolol/dorzolamide/latanop/PF (RBHLMRX-QTPKFOVNSB-AGUISJY,PF,) 0.5-2-0.005 % drop Use in eyes. (Patient [...] call if high fever, (more content not included)...[facility]10-24-2024 History of Present illness Narrative* Jumana Soliz APRN.SEED TESTER - 02/06/2024 12:09 PM EDT Subjective HPI [...] area. (Patient not taking: Reported on02/06/2024) timolol/dorzolamide/latanop/PF (WUEWXGN-SCVXQKORYT-JVHEAAH,PF,) 0.5-2-0.005 % drop Use in eyes. (Patient [...] DROPS Jumana Soliz APRN.RAMIRO [facility] Inst[facility]* Patient Instructions* Jumana Soliz APRN.CNP [...] 100.5 F (38 C). documented in [facility] Hospital Discharge instructions Patient Education 09/24/2023 [...] grows, it spreads out in a red kashia. Because of how it looks, fungal skin [...] worse Foul-smelling fluid leaking from the skin 8887-1740 [employer]. [address] [place] [address], [place] [address]. All rights reserved. This information is not [...] the first few days. You may use xcft-tcq-vyfsebx medicine, such as acetaminophen or ibuprofen, to [...] F (38 C) or as advised Seizure 5211-8811 [employer]. [address] [place] [address]. All rights reserved. This information is not intended as a substitute for professional medical care. Always follow yourhealthcare professional's instructions. Follow Up Care 09/24/2023 11:21:09 With:KIM HUTCHINSON Address: [address] [place], [place] [address] [address] [phone] When:2-4 days [facility] 06-11-2024 Emergency department Discharge summary Discharge Instructions Thank you for allowing [facility] to assist you with your healthcare needs. The following is importantdischarge information regarding your hospital visit. What to Do Next Instructions from Your Care Team No qualifying data available. Post Acute Orders No qualifying data available. You Need to Schedule the Following Appointments Follow Up with KIM HUTCHINSON When:Within 2-4 days Where:[facility] [place] [address] [phone] Allergies NKA Medications Please ask your primary [...] grows, it spreads out in a red kashia. Because of how it looks, fungal skin [...] worse Foul-smelling fluid leaking from the skin 2428-6670 [employer]. [address] [place] [address]. All rights reserved. This information is not [...] the first few days. You may use dswp-ajr-syotidp medicine, such as acetaminophen or ibuprofen, to [...] F (38 C) or as advised Seizure 0501-7441 [employer]. [address] [place] [address]. All rights reserved. This information is not intended as a substitute for professional medical care. Always follow yourhealthcare professional's instructions. Additional Information VACCINATE! IT SAVES LIVES! Members of the community who have not yet received the COVID-19 vaccine and would like to receive it can visit one of [facility] vaccine clinics. There are many vaccine clinic locations within the [facility]. For locations and available times, please visit www.gettheshot.coronavirus.[place].gov/. It is important to note that some COVID mobile vaccine clinics are held outdoors and may be canceled in rainy or stormy conditions. To learn more about pediatric vaccinations (ages 5-11), we invite you to visit the [facility] webpage. https://www.[facility].org/pages/5589-Kjtrc-Iuuenbussga-Nrsprczsfc-Nrwal-Zoa stions.htmlTo learn more about the COVID-19 vaccine, we invite you to visit the CDC website for a list of frequently asked questions. https://www.cdc.gov/coronavirus/2019-ncov/vaccines/faq.html [facility] Patient Portal Access Instructions: Stay connected with your healthcare team and access your personal medical information anytime with the [facility] Patient Portal. If you would like a full copy of your medical records please contact the [facility] Medical Records Department Saturday through Saturday between 8a.m. and 4:30p.m. Please follow the directions below to access the portal: 1.Access the email account you provided upon registration to the [facility].2.Look for an invitation email from [facility].3.Open the email and access the invitation link: Accept Invitation to [facility]4.Fill in the required blanco to create your account. Sign into [email or web address] with your username and password that you [...] you will allow to register on the [facility] Patient Portal for access to your information. You can also access the [facility] Patient Portal on the BeHome247. Simply click on Health Records under [employer] and then click on the SHADO logo. HOW TO SAFELY DISPOSE OF PRESCRIPTION [...] Call your local pharmacy or go to http://Smarp Oy.[employer]/7R0No9w to find one close to you.3.Make use of household items: Use cat litter or old coffee grounds to dispose medications if other options arenot available. Mix your drugs with these household products, seal them in an airtight container andthrow it into the garbage. Call [facility]: [phone] to be sure your drugs can be [...] aware that I should contact my doctor. Patient/Safety Patrol Officer Signature: Date/Time: Relationship to Patient: Witness Name/Signature: Date/Time: [facility]04-29-2024 Telephone encounter Note* Telephone Encounter - Katiuska Palomares RN - 08/12/2023 2:56 PM EDT Called and instructed [place] pharmacy not to fill script. Called and spoke with Yvette at [facility]. Gave her verbal order for antibiotic. [facility]04-29-[facility] Miscellaneous Notes* Telephone Encounter - Katiuska Palomares RN - 08/12/2023 2:56 PM EDT Called and instructed [place] pharmacy not to fill script. Called and spoke with Yvette at [facility]. Gave her verbal order for antibiotic. * Telephone Encounter - Katiuska Palomares RN - 08/12/2023 2:34 PM EDT senior engineering manager Josefina returning the call as she states [facility] and that she thinks they attempted to call her. She is notified that pt has a staph infection and needs an antibiotic in addition to continuing the antifungal cream to the umbilicus. Notified that the antibiotic was sent tot pharmacy in [place]. She states that they no longer use that pharmacy and would like antibiotic sent to pt's mail order in [place], [place]. Instructed that pt needs to start the antibiotic today so will need to send to a local pharmacy. After much encouragement, Josefina asks that script be sent to [facility] in [place] and she will pick it up there. Notified guardijerod Neves about pt's results and need for antibiotics. She requests that the nurse Veronica needs to be notified as soon as possible. Attempted to contact her and VM went to a Homa Bender LPN phone number. No msg left. Maggie had stated to call [facility] where pt is currently living and get Veronica's phone number. Called and spoke with Junie at [facility] who states Homa sometimes covers for Veronica. [...] be applied. She will email nurse and house piping inspector in charge to follow up. * Telephone Encounter - Amilcar Veronica MD - 08/12/2023 8:36 AM EDT Culture grew staph bacteria. I have sent an oral antibiotic to the pharmacy in [place] to help treat. Continue applying the antifungal cream to the umbilicus. documented in [facility] encounterC[facility]04-29-2024 Telephone encounter Note * Telephone Encounter - Katiuska Palomares RN - 08/12/2023 2:34 PM EDT senior engineering manager Josefina returning the call as she states [facility] and that she thinks they attempted to call her. She is notified that pt has a staph infection and needs an antibiotic in addition to continuing the antifungal cream to the umbilicus. Notified that the antibiotic was sent tot pharmacy in [place]. She states that they no longer use that pharmacy and would like antibiotic sent to pt's mail order in [place], [place]. Instructed that pt needs to start the antibiotic today so will need to send to a local pharmacy. After much encouragement, Josefina asks that script be sent to [facility] in [place] and she will pick it up there. Notified guardian Maggie Neves about pt's results and need for antibiotics. She requests that the nurse Veronica needs to be notified as soon as possible. Attempted to contact her and VM went to a Homa Bender LPN phone number. No msg left. Maggie had stated to call [facility] where pt is currently living and get Veronica's phone number. Called and spoke with Junie at [facility] who states Homa sometimes covers for Veronica. [...] be applied. She will email nurse and house piping inspector in charge to follow up. [facility]04-[facility] Telephone encounter Note* Telephone Encounter - Amilcar Veronica MD - 08/12/2023 8:36 AM EDT Culture grew staph bacteria. I have sent an oral antibiotic to the pharmacy in [place] to help treat. Continue applying the antifungal cream to the umbilicus. [facility]04-26-[facility]24 NoteHNO ID: [id number] Author: AMILCAR VERONICA MD Service: ? Author [...] DEFENSE TOPICAL) Apply to affected area. timolol/dorzolamide/latanop/PF (MCNXWGD-RIFFVXLMZA-DBNZBUC,PF,) 0.5-2-0.005 % drop Use in eyes. QUEtiapine [...] STAIN to assess for bacterial dermatitis. Amilcar Veronica, [facility]04-26-2024 History of Present illness Narrative* Amilcar Veronica [...] DEFENSE TOPICAL) Apply to affected area. timolol/dorzolamide/latanop/PF (HPAQWQR-CEIJRLNTFL-IWUWZNE,PF,) 0.5-2-0.005 % drop Use in eyes. QUEtiapine [...] STAIN to assess for bacterial dermatitis. Amilcar Veroinca MD documented in this encounterC[facility] Clinic Lutheran [facility] Hospital Discharge instructions Patient Education 07/29/2023 [...] For more information about diabetes, visit the [place] [employer] website at www.diabetes.org. Or you can call [phone]. When to seek medical advice Call your [...] or seeing Confusion or loss of consciousness [phone] [employer]. [address] [place] [address]. All rights reserved. This information is not intended as a substitute for professional medical care. Always follow yourhealthcare professional's instructions. Follow Up Care 07/29/2023 21:25:40 With:GREGORIO CAMARA MD Address: [facility] [place] [place] [address]- When:2-4 days [facility] 04-15-2024 Note Discharge Instructions Thank you for allowing [facility] to assist you with your healthcare needs. The following is importantdischarge information regarding your hospital visit. Diagnosis from Today's Visit Diabetes mellitus Medical problem - minor, needs insulin, does not have supplies at [facility] What to Do Next Instructions from Your [...] days Where: [facility] [address] [place] [address]- Allergies NKA Medications Please ask your primary [...] tablets. You can buy these at most drug[facility]or[facility]. 4 ounces (1/2 cup) of regular (not [...] For more information about diabetes, visit the [place] [employer] Association website at www.diabetes.org. Or you can call [phone]. When to seek medical advice Call your [...] or seeing Confusion or loss of consciousness [phone] [employer]. [address] [place] [address], [place] [address]. All rights reserved. This information is not intended as a substitute for professional medical care. Always follow yourhealthcare professional's instructions. Additional Information VACCINATE! IT SAVES LIVES! Members of the community who have not yet received the COVID-19 vaccine and would like to receive it can visit one of [facility] vaccine clinics. There are many vaccine clinic locations within the [facility]. For locations and available times, please visit www.gettheshot.coronavirus.[place].gov/. It is important to note that some COVID mobile vaccine clinics are held outdoors and may be canceled in rainy or stormy conditions. To learn more about pediatric vaccinations (ages 5-11), we invite you to visit the [facility] webpage. https://www.[facility].org/pages/8827-Mepot-Xprtmclaspr-Dtworujett-Sxsri-Oee stions.htmlTo learn more about the COVID-19 vaccine, we invite you to visit the CDC website for a list of frequently asked questions. https://www.cdc.gov/coronavirus/2019-ncov/vaccines/faq.html [facility] Patient Portal Access Instructions: Stay connected with your healthcare team and access your personal medical information anytime with the [facility] Patient Portal. If you would like a full copy of your medical records please contact the [facility] Medical Records Department Saturday through Saturday between 8a.m. and 4:30p.m. Please follow the directions below to access the portal: 1.Access the email account you provided upon registration to the hospital.2.Look for an invitation email from [facility].3.Open the email and access the invitation link: Accept Invitation to [facility].Fill in the required blanco to create your account. Sign into www.Aerovance with your username and password that you [...] you will allow to register on the [facility] Patient Portal for access to your information. You can also access the [facility] Patient Portal on the [employer] weston. Simply click on Health Records under [employer] and then click on the SHADO logo. HOW TO SAFELY DISPOSE OF PRESCRIPTION [...] Call your local pharmacy or go to [email or web address] [email or web address] to find one close to you.3.Make use of household items: Use cat litter or old coffee grounds to dispose medications if other options arenot available. Mix your drugs with these household products, seal them in an airtight container andthrow it into the garbage. Call [facility]: [phone] to be sure your drugs can be [...] aware that I should contact my doctor. Patient/Safety Patrol Officer Signature: Date/Time: Relationship to Patient: Witness Name/Signature: Date/Time: [facility]04[facility]24 Hospital Discharge instructions Patient Education 07/29/2023 16:37:23 [...] and water are not available, use hand lacrosse player. 2.Before you give yourself an insulin injection, [...] plastic cover from the needle. 11.Follow the tooth cutter pinion's instructions to prime the insulin pen with [...] have questions? Where to find more information [place] Diabetes Association (ADA): www.diabetes.org [employer] Association of Diabetes Educators (AADE) Patient Resources: [...] 05/04/2016 Document Revised: 04/21/2018 Document Reviewed: 05/04/2016 [employer] Patient Education 2020 JCD. 07/29/2023 16:37:16 Type 2 Diabetes Mellitus, Self Care, Adult, Lalw-pe-Rnxi Type 2 Diabetes Mellitus, Self Care, Adult [...] and canola oil. Meet with a food and beverage order clerk (dietitian). He or she can help you [...] for cuts, bruises, redness, blisters, or sores. [place] your teeth and gums two times a day. Floss one or more times a day. Go to the dentist one or more times every 6 months. Stay at a healthy weight. General instructions Take stoq-fzu-qrbmmaa and prescription medicines only as told by your doctor. Share your diabetes care plan with: ?Your work or school. ?People you live with. Carry a card or wear jewelry that says you have diabetes. Keep all follow-up visits as told by your doctor. This is important. Questions to ask your doctor Do I need to meet with a director of business systems? Where can I find a support group for people with diabetes? Where to find more information To learn more about diabetes, visit: [place] Diabetes Association: www.diabetes.org [employer] Association of Diabetes Educators: www.diabeteseducator.org Summary When [...] 07/23/2016 Document Revised: 09/22/2018 Document Reviewed: 05/04/2016 [employer] Patient Education 2020 JCD. 07/29/2023 16:37:13 Type 2 Diabetes Mellitus, Diagnosis, Adult, Kvib-vp-Jybc Type 2 Diabetes Mellitus, Diagnosis, Adult Type [...] ?Do I need to meet with a director of business systems? ?Where can I find a support group for people with diabetes? ?What equipment will I need to care for myself at home? ?What diabetes medicines do I need? When should I take them? ?How often do I need to check my blood sugar? ?What number can I call if I have questions? ?When is my next doctor's visit? General instructions Take vule-dbq-rkbtsbv and prescription medicines only as told by [...] normally to insulin that it makes. Take ddjf-bga-liadvul and prescription medicines only as told by your doctor. Keep all follow-up visits as told by your doctor. This is important. This information is not intended to replace advice given to you by your health care provider. Make sure you discuss any questions you have with your health care provider. Document Released: 01/08/2009 Document Revised: 05/30/2018 Document Reviewed: 05/04/2016 [employer] Patient Education 2020 JCD. 07/29/2023 16:36:55 Carbohydrate Counting for Diabetes Mellitus, [...] different for every person. A diet and business applications specialist (registered dietitian) can help you make a [...] 15 g of carbohydrates: hamburger bun or Luxembourgish muffin. oz (15 mL) syrup. oz (14 [...] 1.Identify the foods that contain carbohydrates: Rice. Spencer. Milk. Strawberries. 2.Calculate how many servings you [...] you manage your diabetes. A diet and business applications specialist (registered dietitian) can help you make a meal plan and calculate how many carbohydrates you should have at each meal and snack. This information is not intended to replace advice given to you by your health care provider. Make sure you discuss any questions you have with your health care provider. Document Released: 04/01/2006 Document Revised: 10/24/2017 Document Reviewed: 09/12/2016 [employer] Patient Education 2020 [employer] 07/29/2023 16:36:53 Blood Glucose Monitoring, Adult Blood [...] 04/03/2004 Document Revised: 01/23/2019 Document Reviewed: 09/10/2016 [employer] Patient Education 2020 JCD. 07/29/2023 16:36:45 Indwelling Urinary Catheter Care, Adult [...] on each side. Do this in a tvwwz-ne-vijz direction. ?If you are male: ?Use one [...] Clean the drainage bag according to the tooth cutter pinion's instructions or as told byyour health care [...] and water are not available, use hand lacrosse player. Always make sure there are no twists [...] 04/01/2006 Document Revised: 07/24/2019 Document Reviewed: 11/15/2017 [employer] Patient Education 2020 JCD. Follow Up Care 07/27/2023 19:42:45 With:Follow up Urology in 2 weeks. Carroll Catheter placed due to urinary retention. Address:Unknown When: Unknown With:KASSANDRA MCGOVERN MD, [facility] Address: [address] [place] [address]- When:5 to 7 days Comments:New diagnosis of diabetes mellitus With:GREGORIO CAMARA MD Address: ADULT [facility]ATRICS/[facility] [address] [place] [address]- When:2-4 days [facility] 04-15-2024 Note Discharge Instructions Thank you for allowing [facility] to assist you with your healthcare needs. The following is importantdischarge information regarding your hospital visit. Your Care Team [facility] Your Diagnosis KEN (acute kidney [...] Why: New diagnosis of diabetes mellitus Where: [address] [place] [address]- Follow Up with GREGORIO CAMARA MD When Within 2-4 days Where: ADULT [facility]AT[facility] [address] [place] [address]- The Following Activity and Diet Have Been [...] a day Duration: 30 Days Pickup at [facility]/pharmacy #4605 New DME (DME MISCellaneous) See instructions Pen needles. Pickup at [facility]/pharmacy #4605 New DME (DME MISCellaneous) See instructions Glucometer, alcohol swabs, lancets. Pickup at [facility]/pharmacy #4605 New insulin aspart (Novolog) (NovoLOG FlexPen 100 units/ mL injectable solution) 5 unit(s) Subcutaneous Three (3) times a day before meals Duration: [address] [facility] New insulin glargine (Lantus Solostar Pen 100 units/ mL 3 mL Pen) 20 unit(s) Subcutaneous Daily at bedtime Pickup at [facility]/pharmacy #4605 New metFORMIN (MetFORMIN (Eqv-Glucophage XR) 500 mg oral tablet, EXTENDED RELEASE) 1 tab(s) by mouth With supper Pickup at [facility]/pharmacy #4605 430pm New metoprolol (metoprolol succinate 25 mg oral TABLET extended release) 0.25 tab(s) by mouth Twice daily with meals Pickup at [facility]/pharmacy #4605 8am * held evening dose due [...] by mouth Once a day Pharmacy Information [facility]/pharmacy #4605: [address], [place] [id number] [phone] Please take this list to your next doctor s visit. Bring all medications you take, including over the counter medications, herbals and other supplements with you to your doctor s visit. Patients and families are reminded to discard old lists and to update any records with all medication providers or retail pharmacies. Medication Leaflets metoprolol (oral/injection) (me TOE pro lol) Kapspargo Sprinkle, Lopressor, Metoprolol Succinate ER, Metoprolol Tartrate, Toprol-XL [...] may report side effects to FDA at 0-826-ZMY-2205. What other drugs will affect metoprolol? Tell your doctor about all your current medicines. Many drugs can affect metoprolol, especially: any other heart or blood pressure medications; epinephrine (Epi-Pen); an antidepressant; an ergot medicine--dihydroergotamine, ergonovine, ergotamine, methylergonovine; or an MAO inhibitor--isocarboxazid, linezolid, phenelzine, rasagiline, selegiline, tranylcypromine. This list is not complete and many other drugs may affect metoprolol. This includes prescription and xinj-jbk-pajfzlt medicines, vitamins, and herbal products. Not all [...] to ensure that the information provided by [employer]. ('Multum') is accurate, up-to-date, and complete, but no guarantee is made to that effect. Drug information contained herein may be time sensitive. Pearl.com information has been compiled for use by healthcare practitioners and consumers in the [place] and therefore Pearl.com does not warrant that uses outside of the [place] are appropriate, unless specifically indicated otherwise. [employer] drug information does not endorse drugs, diagnose patients or recommend therapy. [employer] drug information isan informational resource designed to [...] effective or appropriate for any given patient. [employer].com does not assume any responsibility for any aspect of healthcare administered with the aid of information Pearl.com provides. The information contained herein is not intended to cover all possible uses, directions, precautions, warnings, drug interactions, allergic reactions, or adverse effects. If you have questions about the drugs you are taking, check with your doctor, nurse or pharmacist. Copyright 9350-7373 [employer]. Version: 19.01. Revision Date: 11/21/2022. insulin glargine (IN marr thai GLAR gine) Basaglar KwikPen, Basaglar Tempo Pen, Insulin [...] may report side effects to FDA at 9-116-XVJ-0658. What other drugs will affect insulin glargine? Many drugs can affect your blood sugar and may also affect insulin glargine. This includes prescription and lefw-cgo-gigvmbs medicines, vitamins, and herbal products. Tell your [...] to ensure that the information provided by [employer]. ('[employer]') is accurate, up-to-date, and complete, but no guarantee is made to that effect. Drug information contained herein may be time sensitive. [employer].com information has been compiled for use by healthcare practitioners and consumers in the [place] and therefore Pearl.com does not warrant that uses outside of the [place] are appropriate, unless specifically indicated otherwise. [employer] drug information does not endorse drugs, diagnose patients or recommend therapy. [employer] drug information isan informational resource designed to [...] effective or appropriate for any given patient. [employer].com does not assume any responsibility for any aspect of healthcare administered with the aid of information [employer].com provides. The information contained herein is not intended to cover all possible uses, directions, precautions, warnings, drug interactions, allergic reactions, or adverse effects. If you have questions about the drugs you are taking, check with your doctor, nurse or pharmacist. Copyright 8587-5060 [employer]. Version: 17.. Revision Date: 11/23/2022. apixaban (a PIX a ban) Allan What is the most important information I should know about apixaban? Apixaban increases your risk of severe or fatal bleeding, especially if you take certain medicines at the same time (including some fezc-kam-vngeziu medicines). Tell your doctor about all medicines [...] may report side effects to FDA at 2-262-WNP-6231. What other drugs will affect apixaban? Sometimes it is not safe to use certain medications at the same time. Some drugs can affect your blood levels of other drugs you take, which may increase side effects or make the medications less effective. Many other drugs (including some pdni-iyp-izsjvqg medicines) can increase your risk of bleeding or blood clots. 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 This list is not complete and many other drugs may affect apixaban. This includes prescription and tvvj-spn-irvvkbj medicines, vitamins, and herbal products. Not all [...] to ensure that the information provided by [employer]. ('[employer]um') is accurate, up-to-date, and complete, but no guarantee is made to that effect. Drug information contained herein may be time sensitive. Pearl.com information has been compiled for use by healthcare practitioners and consumers in the [place] and therefore Pearl.com does not warrant that uses outside of the [place] are appropriate, unless specifically indicated otherwise. [employer] drug information does not endorse drugs, diagnose patients or recommend therapy. [employer] drug information isan informational resource designed to [...] effective or appropriate for any given patient. [employer].com does not assume any responsibility for any aspect of healthcare administered with the aid of information [facility] provides. The information contained herein is not intended to cover all possible uses, directions, precautions, warnings, drug interactions, allergic reactions, or adverse effects. If you have questions about the drugs you are taking, check with your doctor, nurse or pharmacist. Copyright 1946-1326 [facility] [employer]. Version: 6.01. Revision Date: 12/06/2020. insulin aspart [...] may report side effects to FDA at 4-716-SLT-8259. What other drugs will affect insulin aspart? Insulin may not work as well when you use other medicines at the same time. Some drugs can also cause you to have fewer symptoms of hypoglycemia, making it harder to tell when your blood sugar is low. This includes prescription and vrvw-pro-odwvtay medicines, vitamins, and herbal products. Not all [...] to ensure that the information provided by [employer]. ('Multum') is accurate, up-to-date, and complete, but no guarantee is made to that effect. Drug information contained herein may be time sensitive. Pearl.com information has been compiled for use by healthcare practitioners and consumers in the [place] and therefore Pearl.com does not warrant that uses outside of the [place] are appropriate, unless specifically indicated otherwise. [employer] drug information does not endorse drugs, diagnose patients or recommend therapy. [employer] drug information isan informational resource designed to [...] effective or appropriate for any given patient. [facility] does not assume any responsibility for any aspect of healthcare administered with the aid of information [facility] provides. The information contained herein is not intended to cover all possible uses, directions, precautions, warnings, drug interactions, allergic reactions, or adverse effects. If you have questions about the drugs you are taking, check with your doctor, nurse or pharmacist. Copyright 9646-4832 [facility]. Version: 8.02. Revision Date: 07/20/2019. metformin (met [...] breathing, stomach pain (more content not included)... [facility]04-15-[facility] Note* Exam Date Time Procedure Performing Provider Status 07/29/23 3:15 PM Echocardiogram, Adult - CV Auth (Verified) [facility] 04-14-2024 Note Date of Service 07/28/2023 Chief Complaint c/o weakness s/p vomiting x 3 days History of Present Illness 73-year-old male with past medical history significant for developmental delay, alcohol syndrome, depression, anxiety, stress incontinence, frontotemporal lobe dementia, meningioma (8 mm)- Follows with Dr. Fuller, sensorineural hearing loss, tobacco use, newly diagnosed type 2 diabetes mellitus. Patient presented to [facility] emergency department on 07/27/2023 with a 3-day history of nausea, vomiting, weakness, incontinence of bowel and bladder. Patient is a poor historian due to developmental delay. 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 In [...] mental examination revealed the patient was drowsy. residential staff states this is baseline for him. [...] or oxygen requirements. He was having diarrhea. EKN creatinine upon arrival was 3.24. Improved to [...] by AMY LERNER on 07/28/2023 03:10 PM [facility]04-14-2024 Evaluation + Plan noteExtracted from: Title:History and [...] and may include grammatical and/or spelling errors. [facility] 04-14-2024 Note ORIGINAL EXAMINATION: ONE XRAY VIEW [...] Sign Date: 07/28/2023 6:44:20 AM Ordering Provider: [facility]04-14-2024 Note WARNING: DATA QUALITY MAY AFFECT INTERPRETATION ATRIAL FIBRILLATION WITH RAPID VENTRICULAR RESPONSE WITH ABERRANT CONDUCTION OR VENTRICULAR PREMATURE COMPLEXES Borderline left axis deviation Abnormal R-wave progression, early transition Abnormal T, consider ischemia, lateral leads Electronic Signature: DERICK AZAR MD 07/29/2023 09:12:24[facility] 04-13-2024 Note ORIGINAL EXAMINATION: CT OF THE [...] Date: 07/27/2023 11:34:46 PM [facility] Note Sinus rhythm Left axis deviation Borderline T abnormalities, lateral leads Baseline wander in lead(s) I,III,aVL,V4,V5 Electronic Signature: YULIET TREVINO DO 07/27/2023 20:21:27[facility] 11-22-2022 Instructions* Patient Instructions* Garth Moreno MD [...] try to touch base with provider at [facility] to see what else we can do. [facility] History of Present illness Narrative* Garth [...] SYED (generalized anxiety disorder) Here with Josefina, vice president and portfolio manager at the [facility] - has only known him few months. [...] but often uses his diaper. Head at [facility] = Fany uLnd [phone]. Pt's psychiatrist = Dr Po Constantino [phone]. Neuropsych = Kenji Arevalo We reviewed [...] try to touch base with provider at [facility] to see what else we can do. Advised to follow up as needed. I called Dr Maria [phone], was on hold >10min, spoke w/ someone [...] imaging at an earlier time. HPI: Per Guardian/integrated logistics operations manager (been with group since August) Since end [...] as appropriate. Please see relevant sections in [facility] EHR for details Current living environment: [facility] Review of Systems: Is dependent or requires assistance in the following BADL: none but needs reminders Ambulatory c? cane / walker: None at [facility] but uses wheelchair when traveling long distances [...] sensorineural hearing loss, who presents with his integrated logistics operations manager for dementia evaluation per recommendations from Psychiatry. [...] cannot be made without consulting Psychiatry and [facility] director first. Plan: - Will reach out to Psychiatrist and/or [facility] director for medical records before making additional recommendations - Please discuss with PCP the following medication changes - Discontinue Oxybutynin - Increase Donepezil to 10 mg - Decrease Escitalopram to 10 mg Total time spent was 70 minutes, including chart review, time with patient, counseling and care coordination, and assessment/plan formulation and documentation Garth Moreno MD documented in this encounterC[facility]12-[facility]21 NoteHNO ID: [id number] Author: Bella Thurman RN Service: ? Author Type: Registered Nurse Type: Nursing Progress Note Filed: 03/17/2021 1:09 PM Note Text: Discussed IV infiltration and f/u with Dr. Khan AND caregiver, oked f/u. [id number] History of Past illness Narrative* Problem Noted Date Resolved Date Entropion of left lower eyelid 03/17/2021 1 05/18/2020 documented as of this encounter (statuses as of 03/06/2022) [facility] No data available for this section [facility] Evaluation + Plan note Future Appointments Appointment Date:09/12/2023 09:00:00 AM Scheduled Provider: Location:[facility] Appointment Type:CV BOILER HOUSE OPERATOR Appointment Date:11/12/2023 09:15:00 AM Scheduled Provider:KASSANDRA MCGOVERN MD Location:[facility] Appointment Type:ENDO BOILER HOUSE OPERATOR [facility] Evaluation + Plan note Future Appointments Appointment Date:11/12/2023 09:15:00 AM Scheduled Provider:KASSANDRA MCGOVERN MD Location:[facility] Appointment Type:ENDO BOILER HOUSE OPERATOR [facility] Evaluation + Plan note Future Appointments Appointment Date:12/17/2023 11:45:00 AM Scheduled Provider:KASSANDRA MCGOVERN MD Location:[facility] Appointment Type:ENDO OV Diagnostic Tests Pending * Antipancreatic Islet Cells 11/15/23 * SYED-65 Autoantibody 11/15/23 * Gliadin Antibody 11/15/23 * Tissue Transglutaminase Ab (IGA) 11/15/23 [facility] Evaluation + Plan note Future Appointments Appointment Date:10/06/2024 10:00:00 AM Scheduled Provider:KASSANDRA MCGOVERN MD Location:[facility] Appointment Type:ENDO OV Future Scheduled Tests Laboratory* Thyroid Stimulating Hormone 09/17/24 * Thyroid Stimulating Hormone 03/17/24 * A1C Hemoglobin 09/17/24 * A1C Hemoglobin 03/17/24 * Complete Blood Count 03/17/24 * Albumin/Creatinine Ratio, Random Urine 09/17/24 * Vitamin D Level 09/17/24 * Complete Metabolic Panel 09/17/24 * Complete Metabolic Panel 03/17/24 [facility] Evaluation + Plan note Future Appointments Appointment Date:10/22/2024 10:00:00 AM Scheduled Provider:KASSANDRA MCGOVERN MD Location:[facility] Appointment Type:ENDO OV Diagnostic Tests [...] Panel 09/17/24 * Complete Metabolic Panel 03/17/24 [facility] Evaluation + Plan note Future Appointments Appointment Date:10/22/2024 10:00:00 AM Scheduled Provider:KASSANDRA MCGOVERN MD Location:[facility] Appointment Type:ENDO OV Future Scheduled Tests Laboratory* Thyroid Stimulating Hormone 09/17/24 * Thyroid Stimulating Hormone 03/17/24 * A1C Hemoglobin 09/17/24 * A1C Hemoglobin 03/17/24 * Complete Blood Count 03/17/24 * Albumin/Creatinine Ratio, Random Urine 09/17/24 * Vitamin D Level 09/17/24 * Complete Metabolic Panel 09/17/24 * Complete Metabolic Panel 03/17/24 [facility] Evaluation + Plan note Future Appointments Appointment Date:10/22/2024 10:00:00 AM Scheduled Provider:KASSANDRA MCGOVERN MD Location:[facility] Appointment Type:ENDO OV Diagnostic Tests Pending [...] Panel 09/17/24 * Complete Metabolic Panel 03/17/24 [facility] Evaluation + Plan note Future Appointments Appointment Date:11/27/2024 09:15:00 AM Scheduled Provider:RUFUS KELLEY Location:[facility] Appointment Type:CV OV Appointment Date:04/22/2025 11:00:00 AM Scheduled Provider:KASSANDRA MCGOVERN MD Location:[facility] Appointment Type:ENDO OV Future Scheduled Tests Laboratory* SYED-65 Autoantibody 04/09/25 * Thyroid Stimulating Hormone 09/17/24 * Thyroid Stimulating Hormone 03/17/24 * Thyroid Stimulating Hormone 04/09/25 * Free T4 04/09/25 * A1C Hemoglobin 09/17/24 * A1C Hemoglobin 03/17/24 * A1C Hemoglobin 04/09/25 * Complete Blood Count 03/17/24 * Free T3 04/09/25 * Lipid Profile 04/09/25 * Albumin/Creatinine Ratio, Random Urine 09/17/24 * Vitamin D Level 09/17/24 * Vitamin D Level 04/09/25 * Complete Metabolic Panel 09/17/24 * Complete Metabolic Panel 03/17/24 * Complete Metabolic Panel 04/09/25 [facility] Evaluation noteNo assessment information available [facility] Work Phone: Evaluation note* 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 Development delay Lack of normal physiological development, unspecified Unspecified intellectual disabilities Mixed 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) Major depressive disorder, remission status unspecified, unspecified whether recurrent SYED (generalized anxiety disorder) Generalized anxiety disorder [facility] Umbilical discharge- Primary Other symptoms involving abdomen and pelvis [facility] [place] [facility] Diagnosis Acute conjunctivitis of right eye, unspecified acute conjunctivitis type- Primary [facility] Discharge instructions No data available for this section [facility] Progress note No data available for this section [facility] Reason for referral (narrative)No reason for referral information availableWOhio[facility] Work Phone: Summary Purpose Family History No [...] Yes December 02 8 10:41am Power of Machine Quilt Stuffer Yes December 02, 018 10:41am Advance Directive Response Recorded Date/ Time Advance Directives Yes November 19 12:19pm Living Will Yes December 02 8 9:41am Power of Machine Quilt Stuffer Yes December 02, 018 9:41am Advance Directive Response Recorded Date/ Time Advance Directives Yes November 19 1:19pm Chief Complaint and Reason for Visit Chief Complaint TOBACCO USE Chief Complaint TOBACCO USE MENINGIOMA, BEHAVIOR CHANGE Chief Complaint NICOTINE ABUSE Chief Complaint Admit Date R EYE CONCERN May 26, 2024 3:05pm RED R EYE July 13, 2024 12: 42pm Reason for Visit Admit Date Cellulitis of right eyelid May 3:05pm Conjunctivitis, right eye May 26, 2024 3:05pm Chief Complaint Admit Date RED R EYE July 13, 2024 12: 42pm FAX RESULTS TO [phone] ALSO September 292024 12:26pm Additional Source Comments (unrecognized sect ion and content) No Status Records FoundNo Status Records FoundNo Status Records FoundNo Status Records FoundNo Status Records FoundNo Status Records FoundNo Status Records Found INFORMATION SOURCE (unrecogn ized section and content) DATE CREATED AUTHOR 12/22/2019 [facility] DATE CREATED AUTHOR AUTHOR'S ORGANIZ ATION 12/22/2019 [facility] DATE CREATED AUTHOR AUTHOR'S ORGANIZ ATION 03/18/2021 [facility] DATE CREATED AUTHOR AUTHOR'S ORGANIZ ATION 11/20/2023 [facility] ([place]) DATE CREATED AUTHOR AUTHOR'S ORGANIZ ATION 02/08/2024 [facility] DATE CREATED AUTHOR AUTHOR'S ORGANIZ ATION 11/06/2024 [facility] DATE CREATED AUTHOR AUTHOR'S ORGANIZ ATION 11/21/2024 [facility] Care Team (unrecognized sect ion and content) Care Team Personnel Name: GREGORIO CAMARA MD Member Role: Primary Care Physician Address: Address: [facility] [address] [place] [address]- Care Team Related Persons Name: FANY LUND Address: Home [address] [place] [address] Goals (unrecognized section and content) Goals may be documented in a n alternate section Source Comments (unrecognize d section and content) In the event this informatio n is protected by the Federal Confidentiality of Alcohol and Drug Abuse Patient Records regulations: The Federal rules restrict any use of the information to criminally investigate or prosecute any alcohol or drug abuse patient.[facility] the event this information is protected by the Federal Confidentiality of Alcohol and Drug Abuse Patient Records regulations: The Federal rules restrict any use of the information to criminally investigate or prosecute any alcohol or drug abuse patient.[facility] the event this information is protected by the Federal Confidentiality of Alcohol and Drug Abuse Patient Records regulations: The Federal rules restrict any use of the information to criminally investigate or prosecute any alcohol or drug abuse patient.[facility] the event this information is protected by the Federal Confidentiality of Alcohol and Drug Abuse Patient Records regulations: The Federal rules restrict any use of the information to criminally investigate or prosecute any alcohol or drug abuse patient.[facility] Reason for Visit (unrecogniz ed section and content) Reason Comments Geriatric Evaluation Reason Comments Abdominal Pain Naval pain x1 day Reason Comments Results MSSA Need for antibiotic Reason Comments Eye Problem JENNA eye redness Care Teams (unrecognized sec tion and content) Environmental Protection Specialist Relationship Specialty Start Date End Date Kim Hutchinson [address] [place], [place] [phone] PCP - General Family Medicine 03/17/21 Team [...] Primary Care Provider, Attendin g Provider Active Environmental Protection Specialist Relationship Specialty Start Date End Date Kim Hutchinson MD [address] [place] [address], [place] [phone] PCP - General Family Medicine 03/17/21 Environmental Protection Specialist Relationship Specialty Start Date End Date Kim Hutchinson MD [address] [place] [address], [place] [phone] PCP - General Family Medicine 03/17/21 Team Status: Inactive Member Role Status Dates Dr. Kim Hutchinson MD Primary Care Provider Active Start: May 26, 2024 End: May 26, 2024 Dr. Kim Hutchinson MD Referring Provider Active Start: May 26, 2024 End: May 26, 2024 PENNY Almeida Attending Provider Active Start: May 26, 2024 End: May 26, 2024 Team Status: Inactive Member Role Status Dates Dr. Kim Hutchinson MD Primary Care Provider Active Start: July 13, 2024 End: July 13, 2024 Dr. iKm Hutchinson MD Referring Provider Active Start: July 13, 2024 End: July 13, 2024 PENNY Almeida Attending Provider Active Start: July 13, 2024 End: July 13, 2024 Team Status: Inactive Member Role Status Dates Dr. Kim Hutchinson MD Primary Care Provider Active Start: August 27, 2024 End: August 27, 2024 Melissa Campbell Attending Provider Active Start : August 27, 2024 End: August 27, 2024 Melissa Campbell Referring Provider Active Start : August 27, 2024 End: August 27, 2024 Team Status: Inactive Member Role Status Dates Dr. Kim Hutchinson MD Primary Care Provider Active Start: September 29, 2024 End: September 29, 2024 Dr. Becky Sun MD Attending Provider Active Start: September 29, 2024 End: September 29, 2024 Dr. Becky Sun MD Referring Provider Active Start: September 29, 2024 End: September 29, 2024 Team Status: Active Member Role/Relationship Status Dates Dr. Daniel Camara MD Family Provider Active Dr. Kim Hutchinson MD Primary Care Provider Active Team Status: Inactive Member Role/Relationship Status Dates Dr. Kim Hutchinson MD Primary Care Provider Active Start: July 13, 2024 End: July 13, 2024 Dr. Kim Hutchinson MD Referring Provider Active Start: July 13, 2024 End: July 13, 2024 PENNY Almeida Attending Provider Active Start: July 13, 2024 End: July 13, 2024 Team Status: Inactive Member Role/Relationship Status Dates Dr. Kim Hutchinson MD Primary Care Provider Active Start: August 27, 2024 End: August 27, 2024 Melissa Campbell Attending Provider Active Start : August 27, 2024 End: August 27, 2024 Melissa Jonesing Referring Provider Active Start : August 27, 2024 End: August 27, 2024 Team Status: Inactive Member Role/Relationship Status Dates Dr. Kim Hutchinson MD Primary Care Provider Active Start: September 29, 2024 End: September 29, 2024 Dr. Becky Sun MD Attending Provider Active Start: September 29, 2024 End: September 29, 2024 Dr. Becky Sun MD Referring Provider Active Start: September 29, 2024 End: September 29, 2024 Team Status: Inactive Member Role/Relationship Status Dates Dr. Kim Hutchinson MD Primary Care Provider Active Start: October 30, 2024 End: October 30, 2024 Dr. Becky Sun MD Attending Provider Active Start: October 30, 2024 End: October 30, 2024 Dr. Becky Sun MD Referring Provider Active Start: October 30, 2024 End: October 30, 2024 FOR RECORDS PERTAINING TO PATIENTS WHO [...] BE BASED ON THE PRIMARY CLINICAL RECORDS. [facility] Work in Field [facility]. provides no warranty or guarantee of the accuracy or completeness of information in this document.
--- OUTSIDE RECORDS SUMMARY | 2025-01-29 12:57 | XMS RPT_ITS | CCD ---
Author Organization [facility] Care Team Providers Care Manager Roofing Name Role Phone SOFI YOON, DR PERKINS Primary Care Physician Kim Hutchinson Primary Care Provider Kim Hutchinson MD Primary Care Provider KIM HUTCHINSON Primary Care Physician SOFI YOON, DR PERKINS Primary Care Unavailable [facility], WINSOME M Admitting Unavail able JOHAN YOON, [...] Kim Hutchinson MD Primary Care Provider [phone] Dr. Kim Hutchinson MD Referring Provider Garth Mckeon Attending Provider Melissa Campbell Attending Provider Melissa Campbell Referring Provider Dr. Kim Hutchinson MD Primary Care Provider Dr. Kim Hutchinson MD Referring Provider Garth Mckeon Attending Provider Corinne YOON, Dr. Overton Attending Provider [phone] Corinne YOON, Dr. Overton Referring Provider Becky Sun Referring Unavailable [facility] [place] Primary Care Unavailable Becky Sun Attending Unavailable [facility] Referring Unavailable Garth Mckeon Attending Unavailable W[facility], Kim Referring Unavailable [facility] [place] Primary Care Unavailable [facility] [place] Referring Unavailable Garth Mckeon Attending Unavailable [facility] [place] [facility] Referring Unavailable [facility] [place] Primary Care Unavailable [facility] [place] Attending Unavailable [facility], [place] Referring Unavailable [facility] [place] Primary Care Unavailable Jorje Alberto Attending Unavailable [facility] [place] Primary Care Unavailable [facility] [place] Attending Unavailable [facility] [place] Referring Unavailable [facility] [place] Primary Care Unavailable Becky Sun Referring Unavailable [facility], [place] Primary Care Unavailable Becky Sun Attending Unavailable MIKE HUTCHISON Attending Unavailable [facility] [place] Primary Care Unavailable [facility] [place] Primary Care Unavailable MD BECKY SUN Attending Unavailable [facility] Primary Care Unavailable AGUSTIN ACEVES DO Attending Unavailable BRADLEY ANGEL DO Attending Unavailable [facility] Primary Care Unavailable [facility] [place] Primary Care Unavailable MARILU YOON, DR GRACIA Attending Unavailab le Allergies Allergy Classification Reported Allergen(s) Allergy Type Date of Onset Reaction(s) Facility (4 sources) Amoxicillin; Translations: [amoxicillin] Drug Allergy [facility] (4 sources) Sulfamethoxazole / Trimethoprim; Translations: [sulfamethoxazole-tr imethoprim] Drug Allergy [facility] (3 sources) Azithromycin Drug Allergy 5 [facility] Comment on above: severe rash (3 sources) Sulfamethoxazole Drug Allergy 5 [facility] (3 sources) Trimethoprim Drug Allergy 5 [facility] (1 source) Azithromycin Drug Allergy 5 [facility] (1 source) Sulfamethoxazole Drug Allergy 5 [facility] (1 source) Trimethoprim Drug Allergy 5 [facility] Medications Current Medications Medication Drug [...] BID, # 60 tab(s), 0 Refill(s), Pharmacy: [facility]/pharmacy #[id number], 182.9, cm, 07/28/23 1:57:00 EDT, Height, [...] Start: 05-13-2013 take 2 tablets by mo [facility] three times daily Buspirone [...] Status: Ordered Repeat number: 1 End: 03-06-2022 BAINQCUS-MRJNKCWAM-DRUIAABO 3.5 MG/ML-10,000 UNIT/ML-0.1% EYE DROPS 1 Drop [...] swabs., # 1 EA, 0 Refill(s), Pharmacy: [facility]/pharmacy #[id number], 182.9, cm, 07/28/23 1:57:00 EDT, Height, 70.5, kg, 07/28/23 1:57:00 EDT, Dosing Weight Start Date: 07/29/23 Status: Ordered Quantity: 1.0 Unit: EA Repeat number: 1 Start: 07-29-2023 DME MISCellane ous See Instructions, alcohol swabs., # 1 EA, 0 Refill(s), Pharmacy: [facility]/pharmacy #[id number], 182.9, cm, 07/28/23 1:57:00 EDT, Height, 70.5, kg, 07/28/23 1:57:00 EDT, Dosing Weight Start Date: 07/29/23 Status: Ordered Start: 07-29-2023 DME MISCellane ous See Instructions, Pen needles-120., # 1 EA, 0 Refill(s), Pharmacy: [facility]/pharmacy #[id number], Type 2 diabetes mellitus, 182.9, cm, 07/28/23 1:57:00 EDT, Height, 70.5, kg, 07/28/23 1:57:00 EDT, Dosing Weight Start Date: 07/29/23 Status: Ordered Quantity: 1.0 Unit: EA Repeat number: 1 Indications: Type 2 diabetes mellitus without complications; Start: 07-29-2023 DME MISCellane ous See Instructions, Pen needles-120., # 1 EA, 0 Refill(s), Pharmacy: [facility]/pharmacy #[id number], Type 2 diabetes mellitus, 182.9, cm, 07/28/23 1:57:00 EDT, Height, 70.5, kg, 07/28/23 1:57:00 EDT, Dosing Weight Start Date: 07/29/23 Status: Ordered Quantity: 1.0 Unit: EA Repeat number: 1 Indication: Type 2 diabetes mellitus without complications Start: 07-29-2023 DME MISCellane ous See Instructions, Pen needles-120., # 1 EA, 0 Refill(s), Pharmacy: [facility]/pharmacy #[id number], Type 2 diabetes mellitus, 182.9, cm, 07/28/23 1:57:00 EDT, Height, 70.5, kg, 07/28/23 1:57:00 EDT, Dosing Weight Start Date: 07/29/23 Status: Ordered Start: 07-29-2023 DME MISCellane ous See Instructions, Glucometer-Check glucose TIDAC., # 1 EA, 0 Refill(s), Pharmacy: [facility]/pharmacy #[id number], Type 2 diabetes mellitus, 182.9, cm, 07/28/23 1:57:00 EDT, Height, 70.5, kg, 07/28/23 1:57:00 EDT, Dosing Weight Start Date: 07/29/23 Status: Ordered Quantity: 1.0 Unit: EA Repeat number: 1 Indications: Type 2 diabetes mellitus without complications; Start: 07-29-2023 DME MISCellane ous See Instructions, GLucometer., # 1 EA, 0 Refill(s), Pharmacy: [facility]/pharmacy #[id number], Type 2 diabetes mellitus, 182.9, cm, 07/28/23 1:57:00 EDT, Height, 70.5, kg, 07/28/23 1:57:00 EDT, Dosing Weight Start Date: 07/29/23 Status: Ordered Quantity: 1.0 Unit: EA Repeat number: 1 Indications: Type 2 diabetes mellitus without complications; Start: 07-29-2023 DME MISCellane ous See Instructions, Glucometer-Check glucose TIDAC., # 1 EA, 0 Refill(s), Pharmacy: [facility]/pharmacy #[id number], Type 2 diabetes mellitus, 182.9, cm, 07/28/23 1:57:00 EDT, Height, 70.5, kg, 07/28/23 1:57:00 EDT, Dosing Weight Start Date: 07/29/23 Status: Ordered Quantity: 1.0 Unit: EA Repeat number: 1 Indication: Type 2 diabetes mellitus without complications Start: 07-29-2023 DME MISCellane ous See Instructions, GLucometer., # 1 EA, 0 Refill(s), Pharmacy: [facility]/pharmacy #[id number], Type 2 diabetes mellitus, 182.9, cm, 07/28/23 1:57:00 EDT, Height, 70.5, kg, 07/28/23 1:57:00 EDT, Dosing Weight Start Date: 07/29/23 Status: Ordered Quantity: 1.0 Unit: EA Repeat number: 1 Indication: Type 2 diabetes mellitus without complications Start: 07-29-2023 DME MISCellane ous See Instructions, Glucometer-Check glucose TIDAC., # 1 EA, 0 Refill(s), Pharmacy: [facility]/pharmacy #[id number], Type 2 diabetes mellitus, 182.9, cm, 07/28/23 1:57:00 EDT, Height, 70.5, kg, 07/28/23 1:57:00 EDT, Dosing Weight Start Date: 07/29/23 Status: Ordered Start: 07-29-2023 DME MISCellane ous See Instructions, GLucometer., # 1 EA, 0 Refill(s), Pharmacy: [facility]/pharmacy #[id number], Type 2 diabetes mellitus, 182.9, cm, 07/28/23 1:57:00 EDT, Height, 70.5, kg, 07/28/23 1:57:00 EDT, Dosing Weight Start Date: 07/29/23 Status: Ordered Start: 07-29-2023 DME MISCellane ous See Instructions, Pen needles., # 1 EA, 0 Refill(s), Pharmacy: [facility]/pharmacy #[id number], 182.9, cm, 07/28/23 1:57:00 EDT, Height, 70.5, kg, 07/28/23 1:57:00 EDT, Dosing Weight Start Date: 07/29/23 Status: Ordered Quantity: 1.0 Unit: EA Repeat number: 1 Start: 07-29-2023 YOKO kumar See Instructions, Pen needles., # 1 EA, 0 Refill(s), Pharmacy: [facility]/pharmacy #[id number], 182.9, cm, 07/28/23 1:57:00 EDT, Height, [...] 15 mL, 3 Refill(s), Pharmacy: [facility] ([facility]), 185.5, cm, 10/08/24 11:00:00 EDT, Height, kg, 10/08/24 11:00:00 EDT, Dosing Weight Start Date: 11/05/24 Status: Ordered Quantity: 15.0 Unit: mL Repeat number: 4 Start: 06-01-2024 inject 1 dose by sub cutaneous injection once daily in the morning Basaglar 100 unit(s)/mL 3 mL KwikPen Dose : 8 unit(s) =, Subcutaneous, qAM, # 15 mL, 3 Refill(s), Pharmacy: [facility] ([facility]), 185.1, cm, 03/19/24 13:19:00 EST, Height, [...] 15 mL, 0 Refill(s), Pharmacy: [facility] ([facility]), 185.1, cm, 12/17/23 11:46:00 EDT, Height, kg, 12/17/23 11:46:00 EDT, Dosing Weight Start Date: 12/17/23 Status: Ordered Quantity: 15.0 Unit: mL Repeat number: 1 Start: 07-29-2023 End: 08-28-2023 inject 1 dose by subcutaneous injection twice daily Lantus Solostar Pen 100 units/mL 3 mL Pen Dose : 20 unit(s) =, Subcutaneous, BID, # 15 mL, 0 Refill(s), Pharmacy: [facility]/pharmacy #[id number], Type 2 diabetes mellitus, 182.9, cm, 07/28/23 1:57:00 EDT, Height, kg, 07/28/23 1:57:00 EDT, Dosing Weight Start Date: 07/29/23 Stop Date: 08/28/23 Status: Ordered Start: 07-29-2023 inject 1 dose by sub cutaneous injection once daily at bedtime Lantus Solostar Pen 100 units/mL 3 mL Pen Dose : 20 unit(s) =, Subcutaneous, qHS, # 3 mL, 0 Refill(s), Pharmacy: [facility]/pharmacy #[id number], Type 2 diabetes mellitus, 182.9, cm, [...] 30 tab(s), 3 Refill(s), Pharmacy: [facility] ([facility]), 185.1, cm, 03/19/24 13:19:00 EST, Height, kg, 03/19/24 13:19:00 EST, Dosing Weight Start Date: 08/12/24 Status: Ordered Quantity: 30.0 Unit: tab(s) Repeat number: 4 Start: 05-12-2024 MetFORMIN (Eqv -Glucophage XR) 500 mg oral tablet, EXTENDED RELEASE Dose : 500 mg = 1 tab(s), Oral, qAM, 1 tab every morning. To be taken with food., # 30 tab(s), 3 Refill(s), Pharmacy: [facility] ([facility]), 185.1, cm, 03/19/24 13:19:00 EST, Height, kg, 03/19/24 13:19:00 EST, Dosing Weight Start Date: 05/12/24 Status: Ordered Quantity: 30.0 Unit: tab(s) Repeat number: 4 Start: 04-16-2024 MetFORMIN (Eqv -Glucophage XR) 500 mg oral tablet, EXTENDED RELEASE Dose : 500 mg = 1 tab(s), Oral, with supper, # 30 tab(s), 3 Refill(s), Pharmacy: [facility] ([facility]), 185.1, cm, 03/19/24 13:19:00 EST, Height, [...] supper, # 30 tab(s), 0 Refill(s), Pharmacy: [facility]/pharmacy #[id number], 182.9, cm, 07/28/23 1:57:00 EDT, Height, [...] BIDM, # 15 tab(s), 0 Refill(s), Pharmacy: [facility]/pharmacy #[id number], 182.9, cm, 07/28/23 1:57:00 EDT, Height, [...] 120.0 Unit: tab(s) Repeat number: 1 nystatin 475651 unt/ml topical cream (8 sources) Polyene Antifungal [...] by mouth once daily. polyethylene glycol 3350 48320 mg powder for oral solution (11 sources) [...] colonoscopy mixture at 4 pm polymyxin b 82060 unt/ml / trimethoprim 1 mg/ml ophthalmic solution [...] 1:00am September 04, 2013 4:39pm timolol/dorzolamide/latanop/ PF (YNUBKTB-MOBPVYVITC-BHCEVRB,PF,) 0.5-2-0.005 % drop (3 sources) timolol/dorzolam michoacano/latanop/PF (FVJJMNV-OIZFDGMVVU-LBQRNGB,PF,) 0.5-2-0.005 % drop Use in eyes. Active timolol/dorzolam michoacano/latanop/PF (VXLMSJR-PIOFAYPHEI-DYLTOVE,PF,) 0.5-2-0.005 % drop Use in eyes. 0 [...] TIDAC, # 15 mL, 0 Refill(s), Pharmacy: [facility]/pharmacy #[id number], Type 2 diabetes mellitus, 182.9, cm, 07/28/23 [...] PROVIDED HISTORY: Reason for Exam: fall at correction. FINDINGS: Study limited by persistent patient motion. [...] 11/14/2024 10:44:46 AM Ordering Provider: MIKE HUTCHISON [facility] CT MAXILLOFACIAL W/O CONTRAS Ton 11-14-2024 CT [...] Sign Date: 11/14/2024 10:44:56 AM Ordering Provider: IMKE HUTCHISON [facility] CT SPINE CERVICAL W/O STEPHEN Zarco 11-14-2024 [...] [id number] 11-02-2024 [facility] Misc. COMMENT Normal . [facility] Comment on above: Order Comment: [id number] 2 DESMOGLEIN 1 AND 3 D SST FZ Result Comment: Test Ordered: [id number] Reese 1 and Reese 3 IgG Desmoglein [...] skin and monkey esophagus substrates. Performed at: [address] [id number] Professor Of Geography: Desiree Man MD, Phone: [phone] Performed at: [address] [id number] Professor Of Geography: Chaparro Samayoa PhD, Phone: [phone] Performed By: #### L 3410.9992, L100.0100, L500.4050 #### [facility] [address] [place], [address] Absolute lymphocyte countOrd ered By: Becky Sun on 10-30-2024 Lymphocytes Auto (Unsp spec) [#/Vol] 1.90 10*3/uL 0.83-4.51 [facility] Absolute neutrophil countOrd ered By: Becky Sun on 10-30-2024 Neutrophils (Bld) [#/Vol] 8.8 10*3/uL High 2.0-7.7 [facility] Anion gap in Serum or Plasma Ordered By: Becky Sun on 10-30-2024 Anion gap [Moles/Vol] 12 mmol/L 5- [facility] Automated lymphocyte count a s percentage of total leukocytesOrdered By: Becky Sun on 10-30-2024 Lymphocytes/100 WBC Auto (Unsp spec) 16.0 % Low - [facility] BUN/creatinine ratioOrdered By: Becky Sun on 10-30-2024 Urea nitrogen/Creatinine [Mass ratio] 18.0 mg/mg - [facility] Basophil percentageOrdered B y: Becky Sun on 10-30-2024 Basophils/100 WBC (Bld) 0.7 % 0-1 [facility] Bilirubin, totalOrdered By: Becky Sun on 10-30-2024 Bilirubin [Mass/Vol] 0.36 mg/dL 0.00-1.30 [facility] CBC W/Diff, Automatedon 10-13 Absolute Lymph 1.90 X10 3/uL Normal 0.83-4.51 [facility] Comment on above: Performed By: #### L 3410.9992, L100.0100, L500.4050 #### [facility] [address] [place], [address] Absolute Neut 8.8 X10 3/uL High 2.0-7.7 [facility] Comment on above: Performed By: #### L 3410.9992, L100.0100, L500.4050 #### [facility] [address] [place], [address] Basophils/100 WBC (Bld) 0.7 % Normal 0-1 [facility] Comment on above: Performed By: #### L 3410.9992, L100.0100, L500.4050 #### [facility] [address] [place], [address] Eosinophils/100 WBC (Bld) 2.2 % Normal 0-5 [facility] Comment on above: Performed By: #### L 3410.9992, L100.0100, L500.4050 #### [facility] [address] [place], [address] Erythrocyte distribution width (RBC) [Ratio] 13.4 % Normal 11.6-14.6 [facility] Comment on above: Performed By: #### L 3410.9992, L100.0100, L500.4050 #### [facility] [address] [place], [address] Hematocrit (Bld) [Volume fraction] 42.5 % Normal 40-54 [facility] Comment on above: Performed By: #### L 3410.9992, L100.0100, L500.4050 #### [facility] [address] [place], [address] Hemoglobin (Bld) [Mass/Vol] 14.2 g/dL Normal 13.0-16.5 [facility] Comment on above: Performed By: #### L 3410.9992, L100.0100, L500.4050 #### [facility] [address] [place], [address] IG% 0.300 Normal 0.0-0.9 [facility] Comment on above: Result Comment: IG% - Immature Granulocytes (promyelocytes, myelocytes and metamyelocytes) > 1% indicates that a LEFT SHIFT is Present. Performed By: #### L 3410.9992, L100.0100, L500.4050 #### [facility] [address] [place], [address] Lymphocytes/100 WBC (Bld) 16.0 % Low 19-41 [facility] Comment on above: Performed By: #### L 3410.9992, L100.0100, L500.4050 #### [facility] [address] [place], [address] MCH (RBC) [Entitic mass] 32.0 pg Normal 27.0-32.0 [facility] Comment on above: Performed By: #### L 3410.9992, L100.0100, L500.4050 #### [facility] [address] [place], [address] MCHC (RBC) [Mass/Vol] 33.4 g/dL Normal 32-36 [facility] Comment on above: Performed By: #### L 3410.9992, L100.0100, L500.4050 #### [facility] [address] [place], [address] MCV (RBC) [Entitic vol] 95.7 fL High 80-94 [facility] Comment on above: Performed By: #### L 3410.9992, L100.0100, L500.4050 #### [facility] [address] [place], [address] Monocytes/100 WBC (Bld) 6.4 % Normal 0-10 [facility] Comment on above: Performed By: #### L 3410.9992, L100.0100, L500.4050 #### [facility] [address] [place], [address] Neutrophils/100 WBC (Bld) 74.4 % High 47-70 [facility] Comment on above: Performed By: #### L 3410.9992, L100.0100, L500.4050 #### [facility] [address] [place], [address] Nucleated RBC (Bld) [#/Vol] 0 10*3/uL Normal 0-5 [facility] Comment on above: Performed By: #### L 3410.9992, L100.0100, L500.4050 #### [facility] [address] [place], [address] Platelet mean volume (Bld) [Entitic vol] 9.4 fL Normal 6.2-12.0 [facility] Comment on above: Performed By: #### L 3410.9992, L100.0100, L500.4050 #### [facility] [address] [place], [address] Platelets (Bld) [#/Vol] 265 10*3/uL Normal 150-450 [facility] Comment on above: Performed By: #### L 3410.9992, L100.0100, L500.4050 #### [facility] [address] [place], [address] RBC (Bld) [#/Vol] 4.44 10*6/uL Low 4.6-6.2 [facility] Comment on above: Performed By: #### L 3410.9992, L100.0100, L500.4050 #### [facility] [address] [place], [address] RDW SD 47.2 fl High 35.1-43.9 [facility] Comment on above: Performed By: #### L 3410.9992, L100.0100, L500.4050 #### [facility] [address] [place], [address] WBC (Bld) [#/Vol] 11.9 10*3/uL High 4.4-11.0 [facility] Comment on above: Performed By: #### L 3410.9992, L100.0100, L500.4050 #### [facility] [address] [place], [address] Carbon dioxide, total [Moles /volume] in Central venous bloodOrdered By: Becky Sun on 10-30-2024 CO2 [Moles/Vol] 24.4 mmol/L 21.0-32.0 [facility] Chloride assayOrdered By: Devorah Sun on 10-30-2024 Chloride [Moles/Vol] 105 mmol/L 98-108 [facility] Comprehensive Metabolic Prof ilon 10-30-2024 Albumin [Mass/Vol] 3.9 g/dL Normal 3.4-4.8 [facility] Comment on above: Performed By: #### L 3410.9992, L100.0100, L500.4050 #### [facility] [address] [place], [address] Albumin/Globulin [Mass ratio] 1.2 {ratio} Normal 0.9-2.4 [facility] Comment on above: Performed By: #### L 3410.9992, L100.0100, L500.4050 #### [facility] [address] [place], [address] ALK PHOS 85 U/L Normal 40-129 [facility] Comment on above: Performed By: #### L 3410.9992, L100.0100, L500.4050 #### [facility] [address] [place], [address] ALT [Catalytic activity/Vol] 11 U/L Normal <=46 [facility] Comment on above: Performed By: #### L 3410.9992, L100.0100, L500.4050 #### [facility] [address] [place], [address] AST [Catalytic activity/Vol] 14 U/L Normal <=37 [facility] Comment on above: Performed By: #### L 3410.9992, L100.0100, L500.4050 #### [facility] [address] [place], [address] Bilirubin [Mass/Vol] 0.36 mg/dL Normal 0.00-1.30 [facility] Comment on above: Performed By: #### L 3410.9992, L100.0100, L500.4050 #### [facility] [address] [place], [address] BUN/CRE 18.0 RATIO Normal 10-20 [facility] Comment on above: Performed By: #### L 3410.9992, L100.0100, L500.4050 #### [facility] [address] [place], [address] Calcium [Mass/Vol] 9.2 mg/dL Normal 7.6-11.0 [facility] Comment on above: Performed By: #### L 3410.9992, L100.0100, L500.4050 #### [facility] [address] [place], [address] Chloride [Moles/Vol] 105 mmol/L Normal 98-108 [facility] Comment on above: Performed By: #### L 3410.9992, L100.0100, L500.4050 #### [facility] [address] [place], [address] CO2 [Moles/Vol] 24.4 mmol/L Normal 21.0-32.0 [facility] Comment on above: Performed By: #### L 3410.9992, L100.0100, L500.4050 #### [facility] [address] [place], [address] Creatinine [Mass/Vol] 0.93 mg/dL Normal 0.70-1.20 [facility] Comment on above: Performed By: #### L 3410.9992, L100.0100, L500.4050 #### [facility] [address] [place], [address] GAP 12 Normal 5-15 [facility] Comment on above: Performed By: #### L 3410.9992, L100.0100, L500.4050 #### [facility] [address] [place], [address] GFR/1.73 sq M.predicted among non-blacks MDRD (S/P/Bld) [Vol rate/Area] 86 mL/min/{1.73_m2} Normal >60 [facility] Comment on above: Result Comment: mL/m in/1.73m2 CKD-EPI Creatinine Equation (2020) Performed By: #### L 3410.9992, L100.0100, L500.4050 #### [facility] [address] [place], [address] Globulin (S) [Mass/Vol] 3.2 g/dL Normal 2.2-4.2 [facility] Comment on above: Performed By: #### L 3410.9992, L100.0100, L500.4050 #### [facility] [address] [place], [address] Glucose [Mass/Vol] 128 mg/dL High 70-99 [facility] Comment on above: Performed By: #### L 3410.9992, L100.0100, L500.4050 #### [facility] [address] [place], [address] Potassium [Moles/Vol] 4.3 mmol/L Normal 3.3-5.1 [facility] Comment on above: Performed By: #### L 3410.9992, L100.0100, L500.4050 #### [facility] [address] [place], [address] Sodium [Moles/Vol] 141 mmol/L Normal 133-145 [facility] Comment on above: Performed By: #### L 3410.9992, L100.0100, L500.4050 #### [facility] [address] [place], [address] T PROT 7.1 g/dL Normal 5.9-8.4 [facility] Comment on above: Performed By: #### L 3410.9992, L100.0100, [id number] #### [facility] [address] [place], [address] Urea nitrogen [Mass/Vol] 17 mg/dL Normal 4-19 [facility] Comment on above: Performed By: #### L 3410.9992, L100.0100, L500.4050 #### [facility] [address] [place] [place], [address] Eosinophil percentageOrdered By: Becky Sun on 10-30-2024 Eosinophils/100 WBC (Bld) 2.2 % 0-5 [facility] Erythrocyte distribution wid th ratioOrdered By: Becky Sun on 10-30-2024 Erythrocyte distribution width (RBC) [Ratio] 13.4 % 11.6-14.6 [facility] Erythrocyte distribution wid th standard deviationOrdered By: Becky Sun on 10-30-2024 Erythrocyte distribution width (RBC) [Ratio] 47.2 fl High 35.1-43.9 [facility] Glomerular filtration rate ( GFR) estimation/1.73 sq m using serum, plasma, or whole bOrdered By: Becky Sun on 10-30-2024 GFR/1.73 sq M.predicted among non-blacks MDRD (S/P/Bld) [Vol rate/Area] 86 mL/min/{1.73_m2} >60 [facility] Comment on above: mL/min/1.73m2 CKD-EP I Creatinine Equation (2020) Hematocrit Auto (Bld) [Volum e fraction]Ordered By: Becky Sun on 10-30-2024 Hematocrit (Bld) [Volume fraction] 42.5 % 40-54 [facility] Hemoglobin measurementOrdere d By: Becky Sun on 10-30-2024 Hemoglobin (Bld) [Mass/Vol] 14.2 g/dL 13.0-16.5 [facility] Immature granulocytes/100 WB C Auto (Bld)Ordered By: Becky Sun on 10-30-2024 Immature granulocytes/100 WBC (Bld) 0.300 % 0.0-0.9 [facility] Comment on above: IG% - Immature Granu locytes (promyelocytes, myelocytes and metamyelocytes) > 1% indicates that a LEFT SHIFT is Present. Laboratory - Chemistry and C hemistry - challengeOrdered By: Becky Sun on 10-30-2024 AST [Catalytic activity/Vol] 14 U/L <38 [facility] MCV (mean corpuscular volume ) determinationOrdered By: Becky Sun on 10-30-2024 MCV (RBC) [Entitic vol] 95.7 fL High 80-94 [facility] Mean corpuscular hemoglobin (MCH) determinationOrdered By: Becky Sun on 10-30-2024 MCH (RBC) [Entitic mass] 32.0 pg 27.0-32.0 [facility] Mean corpuscular hemoglobin concentration (MCHC) determinationOrdered By: Becky Sun on 10-30-2024 MCHC (RBC) [Mass/Vol] 33.4 g/dL 32-36 [facility] Mean platelet volume determi nationOrdered By: Becky Sun on 10-30-2024 Platelet mean volume (Bld) [Entitic vol] 9.4 fL 6.2-12.0 [facility] Monocyte percentageOrdered B y: Becky Sun on 10-30-2024 Monocytes/100 WBC (Bld) 6.4 % 0-10 [facility] Neutrophil percentageOrdered By: Becky Sun on 10-30-2024 Neutrophils/100 WBC (Bld) 74.4 % High 47-70 [facility] Nucleated red blood cell per centageOrdered By: Becky Sun on 10-30-2024 Nucleated RBC/100 WBC (Bld) [Ratio] 0 % 0-5 [facility] Platelet countOrdered By: Devorah ttvanesas Sun on 10-30-2024 Platelets (Bld) [#/Vol] 265 10*3/uL 150-450 [facility] Potassium measurement (mass/ volume)Ordered By: Becky Sun on 10-30-2024 Potassium (Unsp spec) [Mass/Vol] 4.3 mmol/L 3.3-5.1 [facility] RBC Auto (Bld) [#/Vol]Ordere d By: Becky Sun on 10-30-2024 RBC (Bld) [#/Vol] 4.44 10*6/uL Low 4.6-6.2 [facility] Serum creatinine measurement (mass/volume)Ordered By: Becky Sun on 10-30-2024 Creatinine [Mass/Vol] 0.93 mg/dL 0.70-1.20 [facility] Serum globulin measurementOr dered By: Becky Sun on 10-30-2024 Globulin (S) [Mass/Vol] 3.2 g/dL 2.2-4.2 [facility] Serum glucose measurement (m ass/volume)Ordered By: Becky Sun on 10-30-2024 Glucose [Mass/Vol] 128 mg/dL High 70-99 [facility] Serum or plasma alanine friedman otransferase (ALT) measurementOrdered By: Becky Sun on 10-30-2024 ALT [Catalytic activity/Vol] 11 U/L <47 [facility] Serum or plasma albumin allen urement (mass/volume)Ordered By: Becky Sun on 10-30-2024 Albumin [Mass/Vol] 3.9 g/dL 3.4-4.8 [facility] Serum or plasma albumin/glob ulin mass ratioOrdered By: Becky Sun on 10-30-2024 Albumin/Globulin [Mass ratio] 1.2 {ratio} 0.9-2.4 [facility] Serum or plasma alkaline clovis sphatase measurementOrdered By: Becky Sun on 10-30-2024 ALP [Catalytic activity/Vol] 85 U/L 40-129 [facility] Serum or plasma calcium allen urement (mass/volume)Ordered By: Becky Sun on 10-30-2024 Calcium [Mass/Vol] 9.2 mg/dL 7.6-11.0 [facility] Serum or plasma urea nitroge n measurement (mass/volume)Ordered By: Becky Sun on 10-30-2024 Urea nitrogen [Mass/Vol] 17 mg/dL 4-19 [facility] Sodium levelOrdered By: Edwin Sun on 10-30-2024 Sodium [Moles/Vol] 141 mmol/L 133-145 [facility] Total proteinOrdered By: Og Sun on 10-30-2024 Protein [Mass/Vol] 7.1 g/dL 5.9-8.4 [facility] White blood cell (WBC) count Ordered By: Becky Corinne on 10-30-2024 WBC (Bld) [#/Vol] 11.9 10*3/uL High 4.4-11.0 [facility] Absolute lymphocyte countOrd ered By: Becky Corinne on 09-29-2024 Lymphocytes Auto (Unsp spec) [#/Vol] 1.74 10*3/uL 0.83-4.51 [facility] Absolute neutrophil countOrd ered By: Becky Corinne on 09-29-2024 Neutrophils (Bld) [#/Vol] 8.1 10*3/uL High 2.0-7.7 [facility] Anion gap in Serum or Plasma Ordered By: Beckydutch Sun on 09-29-2024 Anion gap [Moles/Vol] 12 mmol/L 5-15 [facility] Automated lymphocyte count a s percentage of total leukocytesOrdered By: Becky Corinne on 09-29-2024 Lymphocytes/100 WBC Auto (Unsp spec) 15.9 % Low 19-41 [facility] BUN/creatinine ratioOrdered By: Becky Corinne on 09-29-2024 Urea nitrogen/Creatinine [Mass ratio] 17.4 mg/mg 10-20 [facility] Basophil percentageOrdered B y: Becky Sun on 09-29-2024 Basophils/100 WBC (Bld) 0.6 % 0-1 [facility] Bilirubin, totalOrdered By: Beckydutch Sun on 09-29-2024 Bilirubin [Mass/Vol] 0.49 mg/dL 0.00-1.30 [facility] CBC W/Diff, Automatedon 09-13 Absolute Lymph 1.74 X10 3/uL Normal 0.83-4.51 [facility] Comment on above: Performed By: #### L 100.0100, L500.4050 #### [facility] [address] [place] [address]. [place], [place], [id number] Absolute Neut 8.1 X10 3/uL High 2.0-7.7 [facility] Comment on above: Performed By: #### L 100.0100, L500.4050 #### [facility] [address] [place], [address] Basophils/100 WBC (Bld) 0.6 % Normal 0-1 [facility] Comment on above: Performed By: #### L 100.0100, L500.4050 #### [facility] [address] [place], [address] Eosinophils/100 WBC (Bld) 0.4 % Normal 0-5 [facility] Comment on above: Performed By: #### L 100.0100, L500.4050 #### [facility] [address] [place], [address] Erythrocyte distribution width (RBC) [Ratio] 13.3 % Normal 11.6-14.6 [facility] Comment on above: Performed By: #### L 100.0100, L500.4050 #### [facility] [address] [place], [address] Hematocrit (Bld) [Volume fraction] 40.8 % Normal 40-54 [facility] Comment on above: Performed By: #### L 100.0100, L500.4050 #### [facility] [address] [place], [address] Hemoglobin (Bld) [Mass/Vol] 13.8 g/dL Normal 13.0-16.5 [facility] Comment on above: Performed By: #### L 100.0100, L500.4050 #### [facility] [address] [place], [address] IG% 0.500 Normal 0.0-0.9 [facility] Comment on above: Result Comment: IG% - Immature Granulocytes (promyelocytes, myelocytes and metamyelocytes) > 1% indicates that a LEFT SHIFT is Present. Performed By: #### L 100.0100, L500.4050 #### [facility] [address] [place], [address] Lymphocytes/100 WBC (Bld) 15.9 % Low 19-41 [facility] Comment on above: Performed By: #### L 100.0100, L500.4050 #### [facility] [address] [place], [address] MCH (RBC) [Entitic mass] 31.9 pg Normal 27.0-32.0 [facility] Comment on above: Performed By: #### L 100.0100, L500.4050 #### [facility] [address] [place], [address] MCHC (RBC) [Mass/Vol] 33.8 g/dL Normal 32-36 [facility] Comment on above: Performed By: #### L 100.0100, L500.4050 #### [facility] [address] [place], [address] MCV (RBC) [Entitic vol] 94.2 fL High 80-94 [facility] Comment on above: Performed By: #### L 100.0100, L500.4050 #### [facility] [address] [place], [address] Monocytes/100 WBC (Bld) 8.1 % Normal 0-10 [facility] Comment on above: Performed By: #### L 100.0100, L500.4050 #### [facility] [address] [place], [address] Neutrophils/100 WBC (Bld) 74.5 % High 47-70 [facility] Comment on above: Performed By: #### L 100.0100, L500.4050 #### [facility] [address] [place], [address] Nucleated RBC (Bld) [#/Vol] 0 10*3/uL Normal 0-5 [facility] Comment on above: Performed By: #### L 100.0100, L500.4050 #### [facility] [address] [place], [address] Platelet mean volume (Bld) [Entitic vol] 9.8 fL Normal 6.2-12.0 [facility] Comment on above: Performed By: #### L 100.0100, L500.4050 #### [facility] [address] [place], [address] Platelets (Bld) [#/Vol] 253 10*3/uL Normal 150-450 [facility] Comment on above: Performed By: #### L 100.0100, L500.4050 #### [facility] [address] [place], [address] RBC (Bld) [#/Vol] 4.33 10*6/uL Low 4.6-6.2 [facility] Comment on above: Performed By: #### L 100.0100, L500.4050 #### [facility] [address] [place], [address] RDW SD 45.9 fl High 35.1-43.9 [facility] Comment on above: Performed By: #### L 100.0100, L500.4050 #### [facility] [address] [place], [address] WBC (Bld) [#/Vol] 10.9 10*3/uL Normal 4.4-11.0 [facility] Comment on above: Performed By: #### L 100.0100, L500.4050 #### [facility] [address] [place], [address] Carbon dioxide, total [Moles /volume] in Central venous bloodOrdered By: Becky Sun on 06-17-2025 CO2 [Moles/Vol] 22.3 mmol/L 21.0-32.0 [facility] Chloride assayOrdered By: Devorah reginaldoclovisbashir Sun on 09-29-2024 Chloride [Moles/Vol] 107 mmol/L 98-108 [facility] Comprehensive Metabolic Prof ilon 09-29-2024 Albumin [Mass/Vol] 3.8 g/dL Normal 3.4-4.8 [facility] Comment on above: Performed By: #### L 100.0100, L500.4050 #### [facility] [address] [place], [address] Albumin/Globulin [Mass ratio] 1.3 {ratio} Normal 0.9-2.4 [facility] Comment on above: Performed By: #### L 100.0100, L500.4050 #### [facility] [address] [place], [address] ALK PHOS 73 U/L Normal 40-129 [facility] Comment on above: Performed By: #### L 100.0100, L500.4050 #### [facility] [address] [place], [address] ALT [Catalytic activity/Vol] 17 U/L Normal <=46 [facility] Comment on above: Performed By: #### L 100.0100, L500.4050 #### [facility] [address] [place], [address] AST [Catalytic activity/Vol] 16 U/L Normal <=37 [facility] Comment on above: Performed By: #### L 100.0100, L500.4050 #### [facility] [address] [place], [address] Bilirubin [Mass/Vol] 0.49 mg/dL Normal 0.00-1.30 [facility] Comment on above: Performed By: #### L 100.0100, L500.4050 #### [facility] [address] [place], [address] BUN/CRE 17.4 RATIO Normal 10-20 [facility] Comment on above: Performed By: #### L 100.0100, L500.4050 #### [facility] [address] [place], [address] Calcium [Mass/Vol] 8.8 mg/dL Normal 7.6-11.0 [facility] Comment on above: Performed By: #### L 100.0100, L500.4050 #### [facility] [address] [place], [address] Chloride [Moles/Vol] 107 mmol/L Normal 98-108 [facility] Comment on above: Performed By: #### L 100.0100, L500.4050 #### [facility] [address] [place], [address] CO2 [Moles/Vol] 22.3 mmol/L Normal 21.0-32.0 [facility] Comment on above: Performed By: #### L 100.0100, L500.4050 #### [facility] [address] [place], [address] Creatinine [Mass/Vol] 0.88 mg/dL Normal 0.70-1.20 [facility] Comment on above: Performed By: #### L 100.0100, L500.4050 #### [facility] [address] [place], [address] GAP 12 Normal 5-15 [facility] Comment on above: Performed By: #### L 100.0100, L500.4050 #### [facility] [address] [place], [address] GFR/1.73 sq M.predicted among non-blacks MDRD (S/P/Bld) [Vol rate/Area] 90 mL/min/{1.73_m2} Normal >60 [facility] Comment on above: Result Comment: mL/m in/1.73m2 CKD-EPI Creatinine Equation (2020) Performed By: #### L 100.0100, L500.4050 #### [facility] [address] [place], [address] Globulin (S) [Mass/Vol] 2.9 g/dL Normal 2.2-4.2 [facility] Comment on above: Performed By: #### L 100.0100, L500.4050 #### [facility] [address] [place], [address] Glucose [Mass/Vol] 135 mg/dL High 70-99 [facility] Comment on above: Performed By: #### L 100.0100, L500.4050 #### [facility] [address] [place], [address] Potassium [Moles/Vol] 3.8 mmol/L Normal 3.3-5.1 [facility] Comment on above: Performed By: #### L 100.0100, L500.4050 #### [facility] [address] [place], [address] Sodium [Moles/Vol] 141 mmol/L Normal 133-145 [facility] Comment on above: Performed By: #### L 100.0100, L500.4050 #### [facility] [address] [place], [address] T PROT 6.7 g/dL Normal 5.9-8.4 [facility] Comment on above: Performed By: #### L 100.0100, L500.4050 #### [facility] [address] [place], [address] Urea nitrogen [Mass/Vol] 15 mg/dL Normal 4-19 [facility] Comment on above: Performed By: #### L 100.0100, L500.4050 #### [facility] [address] [place], [address] Eosinophil percentageOrdered By: Becky Sun on 09-29-2024 Eosinophils/100 WBC (Bld) 0.4 % 0-5 [facility] Erythrocyte distribution wid th ratioOrdered By: Becky Sun on 09-29-2024 Erythrocyte distribution width (RBC) [Ratio] 13.3 % 11.6-14.6 [facility] Erythrocyte distribution wid th standard deviationOrdered By: Becky Sun on 09-29-2024 Erythrocyte distribution width (RBC) [Ratio] 45.9 fl High 35.1-43.9 [facility] Glomerular filtration rate ( GFR) estimation/1.73 sq m using serum, plasma, or whole bOrdered By: Becky Sun on 09-29-2024 GFR/1.73 sq M.predicted among non-blacks MDRD (S/P/Bld) [Vol rate/Area] 90 mL/min/{1.73_m2} >60 [facility] Comment on above: mL/min/1.73m2 CKD-EP I Creatinine Equation (2020) Hematocrit Auto (Bld) [Volum e fraction]Ordered By: Becky Sun on 09-29-2024 Hematocrit (Bld) [Volume fraction] 40.8 % 40-54 [facility] Hemoglobin measurementOrdere d By: Becky Sun on 09-29-2024 Hemoglobin (Bld) [Mass/Vol] 13.8 g/dL 13.0-16.5 [facility] Immature granulocytes/100 WB C Auto (Bld)Ordered By: Becky Sun on 09-29-2024 Immature granulocytes/100 WBC (Bld) 0.500 % 0.0-0.9 [facility] Comment on above: IG% - Immature Granu locytes (promyelocytes, myelocytes and metamyelocytes) > 1% indicates that a LEFT SHIFT is Present. Laboratory - Chemistry and C hemistry - challengeOrdered By: Becky Sun on 09-29-2024 AST [Catalytic activity/Vol] 16 U/L <38 [facility] MCV (mean corpuscular volume ) determinationOrdered By: Becky Sun on 06-17-2025 MCV (RBC) [Entitic vol] 94.2 fL High 80-94 [facility] Mean corpuscular hemoglobin (MCH) determinationOrdered By: Becky Sun on 09-29-2024 MCH (RBC) [Entitic mass] 31.9 pg 27.0-32.0 [facility] Mean corpuscular hemoglobin concentration (MCHC) determinationOrdered By: Becky Sun on 09-29-2024 MCHC (RBC) [Mass/Vol] 33.8 g/dL 32-36 [facility] Mean platelet volume determi nationOrdered By: Becky Sun on 09-29-2024 Platelet mean volume (Bld) [Entitic vol] 9.8 fL 6.2-12.0 [facility] Monocyte percentageOrdered B y: Becky Sun on 09-29-2024 Monocytes/100 WBC (Bld) 8.1 % 0-10 [facility] Neutrophil percentageOrdered By: Becky Sun on 09-29-2024 Neutrophils/100 WBC (Bld) 74.5 % High 47-70 [facility] Nucleated red blood cell per centageOrdered By: Becky Sun on 09-29-2024 Nucleated RBC/100 WBC (Bld) [Ratio] 0 % 0-5 [facility] Platelet countOrdered By: Devorah Sun on 09-29-2024 Platelets (Bld) [#/Vol] 253 10*3/uL 150-450 [facility] Potassium measurement (mass/ volume)Ordered By: Becky Sun on 09-29-2024 Potassium (Unsp spec) [Mass/Vol] 3.8 mmol/L 3.3-5.1 [facility] RBC Auto (Bld) [#/Vol]Ordere d By: Becky Sun on 09-29-2024 RBC (Bld) [#/Vol] 4.33 10*6/uL Low 4.6-6.2 [facility] Serum creatinine measurement (mass/volume)Ordered By: Becky Sun on 09-29-2024 Creatinine [Mass/Vol] 0.88 mg/dL 0.70-1.20 [facility] Serum globulin measurementOr dered By: Becky Sun on 09-29-2024 Globulin (S) [Mass/Vol] 2.9 g/dL 2.2-4.2 [facility] Serum glucose measurement (m ass/volume)Ordered By: Becky Sun on 09-29-2024 Glucose [Mass/Vol] 135 mg/dL High 70-99 [facility] Serum or plasma alanine friedman otransferase (ALT) measurementOrdered By: Becky Sun on 09-29-2024 ALT [Catalytic activity/Vol] 17 U/L <47 [facility] Serum or plasma albumin allen urement (mass/volume)Ordered By: Becky Sun on 09-29-2024 Albumin [Mass/Vol] 3.8 g/dL 3.4-4.8 [facility] Serum or plasma albumin/glob ulin mass ratioOrdered By: Becky Sun on 09-29-2024 Albumin/Globulin [Mass ratio] 1.3 {ratio} 0.9-2.4 [facility] Serum or plasma alkaline clovis sphatase measurementOrdered By: Becky Sun on 09-29-2024 ALP [Catalytic activity/Vol] 73 U/L 40-129 [facility] Serum or plasma calcium allen urement (mass/volume)Ordered By: Becky Sun on 09-29-2024 Calcium [Mass/Vol] 8.8 mg/dL 7.6-11.0 [facility] Serum or plasma urea nitroge n measurement (mass/volume)Ordered By: Becky Sun on 09-29-2024 Urea nitrogen [Mass/Vol] 15 mg/dL 4-19 [facility] Sodium levelOrdered By: Edwin Sun on 09-29-2024 Sodium [Moles/Vol] 141 mmol/L 133-145 [facility] Total proteinOrdered By: Og Sun on 09-29-2024 Protein [Mass/Vol] 6.7 g/dL 5.9-8.4 [facility] White blood cell (WBC) count Ordered By: Becky Sun on 09-29-2024 WBC (Bld) [#/Vol] 10.9 10*3/uL 4.4-11.0 [facility] QUANTTBon 08-07-2024 QFT Criteria Comment Normal [...] DIFF, CMP, GFR, MDW, CBC, ANEU #### [place] [address] QFT Mitogen Value >10.00 Normal [facility] Comment on above: Performed By: #### A DIFF, CMP, GFR, MDW, CBC, ANEU #### [place] [address] QFT Nil Value 0.02 IU/mL Normal [facility] Comment on above: Performed By: #### A DIFF, CMP, GFR, MDW, CBC, ANEU #### [place] [address] QFT TB1 Ag Value 0.02 IU/mL Normal [facility] Comment on above: Performed By: #### A DIFF, CMP, GFR, MDW, CBC, ANEU #### [place] [address] QFT TB2 Ag Value 0.02 IU/mL Normal [facility] Comment on above: Performed By: #### A DIFF, CMP, GFR, MDW, CBC, ANEU #### [place] [address] QFT-TB Gold Plus [employer]t Inc Negative Normal [...] interferon gamma. Chemiluminescence immunoassay methodology Performed At: [facility] [address] [place], [place] [id number] Danita Mayfield PhD Ph:[phone] Performed By: #### A DIFF, CMP, GFR, MDW, CBC, ANEU #### [address] [address] HBCABon 08-06-2024 Hep B Core Total Ab Negative Normal Negative [facility] Comment on above: Result Comment: Perf ormed At: [facility] [address] [place], [place] [id number] Danita Mayfield PhD Ph:[phone] Performed By: #### A DIFF, CMP, GFR, MDW, CBC, ANEU #### [place] [address] .Auto Diffon 08-05-2024 Basophil, Absolute 0.1 10 3/mcL Normal 0.0-0.3 [facility] Comment on above: Performed By: #### G FR, CBC, ADIFF, CMP, 844603, ANEU, 116252 ####[place] [address]#### HBSAB, HCV1, HBSAG ####[address] [address] Basophils/100 WBC (Bld) 0.6 % Normal 0.0-2.5 [facility] Comment on above: Performed By: #### G FR, CBC, ADIFF, CMP, 211752, ANEU, 295230 ####[place] [address]#### HBSAB, HCV1, HBSAG ####[address] [address] Eosinophil, Absolute 0.4 10 3/mcL Normal 0.0-0.7 [facility] Comment on above: Performed By: #### G FR, CBC, ADIFF, CMP, 224422, ANEU, 026635 ####[place] [address]#### HBSAB, HCV1, HBSAG ####[address] [address] Eosinophils/100 WBC (Bld) 3.0 % Normal 0.0-6.0 [facility] Comment on above: Performed By: #### G FR, CBC, ADIFF, CMP, 614722, ANEU, 114527 ####[place] [address]#### HBSAB, HCV1, HBSAG ####[address] [address] Lymphocyte, Absolute 2.0 10 3/mcL Normal 0.9-4.3 [facility] Comment on above: Performed By: #### G FR, CBC, ADIFF, CMP, 243725, ANEU, 653469 ####[place] [address]#### HBSAB, HCV1, HBSAG ####[address] [address] Lymphocytes/100 WBC (Bld) 16.7 % Low 20.0-40.0 [facility] Comment on above: Performed By: #### G FR, CBC, ADIFF, CMP, 421800, ANEU, 006389 ####[place] [address]#### HBSAB, HCV1, HBSAG ####[address] [address] Monocyte, Absolute 0.6 10 3/mcL Normal 0.1-1.4 [facility] Comment on above: Performed By: #### G FR, CBC, ADIFF, CMP, 928917, ANEU, 314985 ####[place] [address]#### HBSAB, HCV1, HBSAG ####[address] [address] Monocytes/100 WBC (Bld) 5.2 % Normal 2.0-13.0 [facility] Comment on above: Performed By: #### G FR, CBC, ADIFF, CMP, 667905, ANEU, 558155 ####[place] [address] [place] [address]#### HBSAB, HCV1, HBSAG ####[address] [address] Neutrophils/100 WBC (Bld) 74.5 % Normal 50.0-75.0 [facility] Comment on above: Performed By: #### G FR, CBC, ADIFF, CMP, 702199, ANEU, 199848 ####[place] [address]#### HBSAB, HCV1, HBSAG ####[address] [address] .GFRon 08-05-2024 Estimated Glomerular Filtration Rate 84 [...] By: #### G FR, CBC, ADIFF, CMP, 384283, ANEU, 118925 ####[place] [address]#### HBSAB, HCV1, HBSAG ####[address] [address] .NEUABSon 08-05-2024 Neutrophil, Absolute 9.0 10 3/mcL High 2.3-8.1 [facility] Comment on above: Performed By: #### G FR, CBC, ADIFF, CMP, 055983, ANEU, 853604 ####[place] [address]#### HBSAB, HCV1, HBSAG ####[place] [address] CBCon 08-05-2024 Erythrocyte distribution width (RBC) [Ratio] 13.5 % Normal 11.5-15.5 [facility] Comment on above: Performed By: #### G FR, CBC, ADIFF, CMP, 875739, ANEU, [id number] ####[place] [address]#### HBSAB, HCV1, HBSAG ####[place] [address] Hematocrit (Bld) [Volume fraction] 41.6 % Normal 40.0-52.0 [facility] Comment on above: Performed By: #### G FR, CBC, ADIFF, CMP, 512149, ANEU, 965071 ####[place] [address]#### HBSAB, HCV1, HBSAG ####[place] [address] Hgb 14.1 G/dL Normal 13.0-17.5 [facility] Comment on above: Performed By: #### G FR, CBC, ADIFF, CMP, 102405, ANEU, 585151 ####[place] [address]#### HBSAB, HCV1, HBSAG ####[place] [address] MCH (RBC) [Entitic mass] 32.1 pg Normal 27.0-33.0 [facility] Comment on above: Performed By: #### G FR, CBC, ADIFF, CMP, 582680, ANEU, 439291 ####[place] [address]#### HBSAB, HCV1, HBSAG ####[place] [address] MCHC 34.0 G/dL Normal 32.0-36.0 [facility] [place] Comment on above: Performed By: #### G FR, CBC, ADIFF, CMP, 736736, ANEU, 662097 ####[place] [address]#### HBSAB, HCV1, HBSAG ####[place] [address] MCV (RBC) [Entitic vol] 94.4 fL Normal 81.0-100.0 [facility] Comment on above: Performed By: #### G FR, CBC, ADIFF, CMP, 558586, ANEU, 105767 ####[place] [address]#### HBSAB, HCV1, HBSAG ####[place] [address] Platelet 256 10 3/mcL Normal 150-450 [facility] Comment on above: Performed By: #### G FR, CBC, ADIFF, CMP, 416264, ANEU, 186050 ####[place] [address]#### HBSAB, HCV1, HBSAG ####[place] [address] Platelet mean volume (Bld) [Entitic vol] 7.2 fL Normal 6.4-10.5 [facility] Comment on above: Performed By: #### G FR, CBC, ADIFF, CMP, 875229, ANEU, 011552 ####[place] [address]#### HBSAB, HCV1, HBSAG ####[place] [address] RBC 4.41 10 6/mcL Low 4.50-6.00 [facility] [place] Comment on above: Performed By: #### G FR, CBC, ADIFF, CMP, 467305, ANEU, [id number] ####[place] [address]#### HBSAB, HCV1, HBSAG ####[place] [address] WBC 12.1 10 3/mcL High 4.5-10.8 [facility] [place] Comment on above: Performed By: #### Dari FR, CBC, ADIFF, CMP, 926342, ANEU, [id number] ####[place] [address]#### HBSAB, HCV1, HBSAG ####[place] [address] CMPon 08-05-2024 Albumin Level 3.3 G/dL Low 3.4-4.8 [facility] [place] Comment on above: Performed By: #### Dari FR, CBC, ADIFF, CMP, 711369, ANEU, [id number] ####[place] [address]#### HBSAB, HCV1, HBSAG ####[place] [address] Albumin/Globulin [Mass ratio] 0.8 {ratio} Low 1.1-2.5 [facility] [place] Comment on above: Performed By: #### Dari FR, CBC, ADIFF, CMP, 255170, ANEU, [id number] ####[place] [address]#### HBSAB, HCV1, HBSAG ####[place] [address] ALP [Catalytic activity/Vol] 90 U/L Normal 40-135 [facility] [place] Comment on above: Performed By: #### Dari FR, CBC, ADIFF, CMP, 433741, ANEU, 734056 ####[place] [address]#### HBSAB, HCV1, HBSAG ####[place] [address] ALT [Catalytic activity/Vol] 27 U/L Normal 16-63 [facility] [place] Comment on above: Performed By: #### G FR, CBC, ADIFF, CMP, 779301, ANEU, 260342 ####[place] [address]#### HBSAB, HCV1, HBSAG ####[place] [address] AST [Catalytic activity/Vol] 16 U/L Normal 10-40 [facility] [place] Comment on above: Performed By: #### G FR, CBC, ADIFF, CMP, 531428, ANEU, 658631 ####[place] [address]#### HBSAB, HCV1, HBSAG ####[place] [address] Bili Total 0.5 mg/dL Normal 0.2-1.0 [facility] [place] Comment on above: Result Comment: Use of this assay is not recommended for patients undergoing treatment with eltrombopag due to the potential for falsely elevated results. Performed By: #### G FR, CBC, ADIFF, CMP, 201435, ANEU, [id number] ####[place] [address]#### HBSAB, HCV1, HBSAG ####[place] [address] BUN/Creatinine Ratio 21 ratio Normal 7-27 [facility] Comment on above: Performed By: #### G FR, CBC, ADIFF, CMP, 687410, ANEU, 844888 ####[place] [address]#### HBSAB, HCV1, HBSAG ####[place] [address] Calcium [Mass/Vol] 9.1 mg/dL Normal 8.4-10.2 [facility] Comment on above: Performed By: #### G FR, CBC, ADIFF, CMP, 907852, ANEU, 310958 ####[place] [address]#### HBSAB, HCV1, HBSAG ####[place] [address] Chloride [Moles/Vol] 105 mmol/L Normal 98-107 [facility] Comment on above: Performed By: #### G FR, CBC, ADIFF, CMP, 714257, ANEU, 112936 ####[place] [address]#### HBSAB, HCV1, HBSAG ####[place] [address] CO2 [Moles/Vol] 31 mmol/L Normal 23-31 [facility] [place] Comment on above: Performed By: #### G FR, CBC, ADIFF, CMP, 779922, ANEU, 550788 ####[place] [address]#### HBSAB, HCV1, HBSAG ####[place] [address] Creatinine [Mass/Vol] 0.95 mg/dL Normal 0.67-1.17 [facility] Comment on above: Performed By: #### G FR, CBC, ADIFF, CMP, 221065, ANEU, 043337 ####[place] [address]#### HBSAB, HCV1, HBSAG ####[place] [address] Electrolyte Balance 5.0 mEq/L Normal 4.0-15.0 [facility] Comment on above: Performed By: #### G FR, CBC, ADIFF, CMP, 345286, ANEU, 978608 ####[place] [address]#### HBSAB, HCV1, HBSAG ####[place] [address] Globulin 3.9 G/dL High 1.5-3.8 [facility] [place] Comment on above: Performed By: #### G FR, CBC, ADIFF, CMP, 547498, ANEU, 988275 ####[place] [address]#### HBSAB, HCV1, HBSAG ####[place] [address] Glucose [Mass/Vol] 107 mg/dL Normal 83-110 [facility] Comment on above: Performed By: #### G FR, CBC, ADIFF, CMP, 437187, ANEU, 355226 ####[place] [address]#### HBSAB, HCV1, HBSAG ####[address] [address] Potassium [Moles/Vol] 4.3 mmol/L Normal 3.5-5.1 [facility] Comment on above: Performed By: #### G FR, CBC, ADIFF, CMP, 953329, ANEU, 797631 ####[place] [address]#### HBSAB, HCV1, HBSAG ####[place] [address] Sodium [Moles/Vol] 141 mmol/L Normal 136-145 [facility] Comment on above: Performed By: #### G FR, CBC, ADIFF, CMP, 246174, ANEU, 731947 ####[place] [address]#### HBSAB, HCV1, HBSAG ####[place] [address] Total Protein 7.2 G/dL Normal 6.4-8.2 [facility] [place] Comment on above: Performed By: #### G FR, CBC, ADIFF, CMP, 078890, ANEU, 257966 ####[place] [address]#### HBSAB, HCV1, HBSAG ####[place] [address] Urea nitrogen [Mass/Vol] 20 mg/dL High 7-18 [facility] [place] Comment on above: Performed By: #### G FR, CBC, ADIFF, CMP, 523375, ANEU, 305141 ####[place] [address]#### HBSAB, HCV1, HBSAG ####[place] [address] HBSABon 08-05-2024 Hep B Surf Ab <3.1 [...] DIFF, CMP, GFR, MDW, CBC, ANEU #### [place] [address] HBSAGon 08-05-2024 Hep B Surf Ag Non-Reactive Normal Non-Reactiv [facility] Comment on above: Performed By: #### G FR, CBC, ADIFF, CMP, 871255, ANEU, 102349 ####[place] [address]#### HBSAB, HCV1, HBSAG ####[place] [address] HCVon 08-05-2024 Hep C Ab Non-Reactive Normal Non-Reactiv [facility] Comment on above: Performed By: #### A DIFF, CMP, GFR, MDW, CBC, ANEU #### [place] [address] Hep C Ab Int [facility] Comment on above: Result Comment: Nonr [...] DIFF, CMP, GFR, MDW, CBC, ANEU #### [place] [address] LABORATORYOrdered By: SYSTEM SYSTEM on 08-05-2024 Albumin [...] in some clinical conditions. Invalid Interpretation Code [facility] Urgent Care Visit Reporton 0 07-13-2024 Urgent Care Visit Report [facility] 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 No complaints of fever, chills, sweats. MRDD patient under the care of the competitive intelligence analyst who accompanies patient today. No other complaints [...] worsen or any other concerns develop. Patient's competitive intelligence analyst states acknowledging understanding all the above. Coding Level of Care Code Off vis,est,level 3 Assessment and Plan Assessment and Plan Medications: New (more content not included)... Normal [facility] .Auto Diffon 06-07-2024 Basophil, Absolute 0.1 10 3/mcL Normal 0.0-0.2 [facility] Comment on above: Performed By: #### A DIFF, CMP, GFR, MDW, CBC, ANEU #### [address] [address] Basophils/100 WBC (Bld) 0.6 % Normal 0.0-2.5 [facility] Comment on above: Performed By: #### A DIFF, CMP, GFR, MDW, CBC, ANEU #### [address] [address] Eosinophil, Absolute 0.1 10 3/mcL Normal 0.0-0.7 [facility] Comment on above: Performed By: #### A DIFF, CMP, GFR, MDW, CBC, ANEU #### [address] [address] Eosinophils/100 WBC (Bld) 1.2 % Normal 0.0-7.0 [facility] [place] Comment on above: Performed By: #### A DIFF, CMP, GFR, MDW, CBC, ANEU #### [address] [address] Lymphocyte, Absolute 1.4 10 3/mcL Normal 0.9-4.3 [facility] Comment on above: Performed By: #### A DIFF, CMP, GFR, MDW, CBC, ANEU #### [address] [address] Lymphocytes/100 WBC (Bld) 13.4 % Low 20.0-40.0 [facility] [place] Comment on above: Performed By: #### A DIFF, CMP, GFR, MDW, CBC, ANEU #### [address] [address] Monocyte, Absolute 0.9 10 3/mcL Normal 0.1-1.4 [facility] Comment on above: Performed By: #### A DIFF, CMP, GFR, MDW, CBC, ANEU #### [address] [address] Monocytes/100 WBC (Bld) 8.6 % Normal 2.0-13.0 [facility] Comment on above: Performed By: #### A DIFF, CMP, GFR, MDW, CBC, ANEU #### [address] [address] Neutrophils/100 WBC (Bld) 76.2 % High 50.0-75.0 [facility] [place] Comment on above: Performed By: #### A DIFF, CMP, GFR, MDW, CBC, ANEU #### [address] [address] .GFRon 06-07-2024 Estimated Glomerular Filtration Rate 73 [...] DIFF, CMP, GFR, MDW, CBC, ANEU #### [address] [address] .MDWon 06-07-2024 Monocyte Distribution Width 20.06 High 0.00-20.00 [facility] [place] Comment on above: Result Comment: For adults in ED, MDW>20.0 may be associated with a higher risk of sepsis during the first 12hrs of hospital admission Performed By: #### A DIFF, CMP, GFR, MDW, CBC, ANEU #### [address] [address] .NEUABSon 06-07-2024 Neutrophil, Absolute 7.8 10 3/mcL Normal 2.3-8.1 [facility] Comment on above: Performed By: #### A DIFF, CMP, GFR, MDW, CBC, ANEU #### [place] [address] CBCon 06-07-2024 Erythrocyte distribution width (RBC) [Ratio] 14.3 % Normal 11.5-15.5 [facility] [place] Comment on above: Performed By: #### A DIFF, CMP, GFR, MDW, CBC, ANEU #### [place] [address] Hematocrit (Bld) [Volume fraction] 43.2 % Normal 40.0-52.0 [facility] [place] Comment on above: Performed By: #### A DIFF, CMP, GFR, MDW, CBC, ANEU #### [place] [address] Hgb 14.7 G/dL Normal 13.0-17.5 [facility] [place] Comment on above: Performed By: #### A DIFF, CMP, GFR, MDW, CBC, ANEU #### [address] [address] MCH (RBC) [Entitic mass] 32.2 pg Normal 27.0-33.0 [facility] [place] Comment on above: Performed By: #### A DIFF, CMP, GFR, MDW, CBC, ANEU #### [place] [address] MCHC 34.0 G/dL Normal 32.0-36.0 [facility] [place] Comment on above: Performed By: #### A DIFF, CMP, GFR, MDW, CBC, ANEU #### [place] [address] MCV (RBC) [Entitic vol] 94.6 fL Normal 81.0-100.0 [facility] Comment on above: Performed By: #### A DIFF, CMP, GFR, MDW, CBC, ANEU #### [place] [address] Platelet 227 10 3/mcL Normal 150-450 [facility] [place] Comment on above: Performed By: #### A DIFF, CMP, GFR, MDW, CBC, ANEU #### [address] [address] Platelet mean volume (Bld) [Entitic vol] 7.7 fL Normal 6.4-10.5 [facility] [place] Comment on above: Performed By: #### A DIFF, CMP, GFR, MDW, CBC, ANEU #### [place] [address] RBC 4.57 10 6/mcL Normal 4.50-6.00 [facility] [place] Comment on above: Performed By: #### A DIFF, CMP, GFR, MDW, CBC, ANEU #### [place] [address] WBC 10.2 10 3/mcL Normal 4.5-10.8 [facility] [place] Comment on above: Performed By: #### A DIFF, CMP, GFR, MDW, CBC, ANEU #### [place] [address] CMPon 06-07-2024 Albumin Level 3.7 G/dL Normal 3.4-4.8 [facility] [place] Comment on above: Performed By: #### A DIFF, CMP, GFR, MDW, CBC, ANEU #### [place] [address] Albumin/Globulin [Mass ratio] 1.1 {ratio} Normal 1.1-2.5 [facility] [place] Comment on above: Performed By: #### A DIFF, CMP, GFR, MDW, CBC, ANEU #### [address] [address] ALP [Catalytic activity/Vol] 84 U/L Normal 40-135 [facility] [place] Comment on above: Performed By: #### A DIFF, CMP, GFR, MDW, CBC, ANEU #### [address] [address] ALT [Catalytic activity/Vol] 29 U/L Normal 16-63 [facility] [place] Comment on above: Performed By: #### A DIFF, CMP, GFR, MDW, CBC, ANEU #### [address] [address] AST [Catalytic activity/Vol] 11 U/L Normal 10-40 [facility] [place] Comment on above: Performed By: #### A DIFF, CMP, GFR, MDW, CBC, ANEU #### [address] [address] Bili Total 0.4 mg/dL Normal 0.2-1.0 [facility] [place] Comment on above: Result Comment: Use of this assay is not recommended for patients undergoing treatment with eltrombopag due to the potential for falsely elevated results. Performed By: #### A DIFF, CMP, GFR, MDW, CBC, ANEU #### [address] [address] BUN/Creatinine Ratio 17 ratio Normal 7-27 [facility] Comment on above: Performed By: #### A DIFF, CMP, GFR, MDW, CBC, ANEU #### [address] [address] Calcium [Mass/Vol] 9.0 mg/dL Normal 8.4-10.2 [facility] Comment on above: Performed By: #### A DIFF, CMP, GFR, MDW, CBC, ANEU #### [address] [address] Chloride [Moles/Vol] 103 mmol/L Normal 98-107 [facility] Comment on above: Performed By: #### A DIFF, CMP, GFR, MDW, CBC, ANEU #### [address] [address] CO2 [Moles/Vol] 23 mmol/L Normal 23-31 [facility] [place] Comment on above: Performed By: #### A DIFF, CMP, GFR, MDW, CBC, ANEU #### [address] [address] Creatinine [Mass/Vol] 1.07 mg/dL Normal 0.70-1.30 [facility] Comment on above: Result Comment: Test ing performed on Siemens Dimension EXL analyzer using a modified kinetic Colleen technique. Performed By: #### A DIFF, CMP, GFR, MDW, CBC, ANEU #### [address] [address] Electrolyte Balance 12.0 mEq/L Normal 4.0-15.0 [facility] Comment on above: Performed By: #### A DIFF, CMP, GFR, MDW, CBC, ANEU #### [address] [address] Globulin 3.4 G/dL Normal 1.5-3.8 [facility] [place] Comment on above: Performed By: #### A DIFF, CMP, GFR, MDW, CBC, ANEU #### [address] [address] Glucose [Mass/Vol] 182 mg/dL High 83-110 [facility] Comment on above: Performed By: #### A DIFF, CMP, GFR, MDW, CBC, ANEU #### [address] [address] Potassium [Moles/Vol] 3.9 mmol/L Normal 3.5-5.1 [facility] Comment on above: Performed By: #### A DIFF, CMP, GFR, MDW, CBC, ANEU #### [address] [address] Sodium [Moles/Vol] 138 mmol/L Normal 136-145 [facility] Comment on above: Performed By: #### A DIFF, CMP, GFR, MDW, CBC, ANEU #### [address] [address] Total Protein 7.1 G/dL Normal 6.4-8.2 [facility] [place] Comment on above: Performed By: #### A DIFF, CMP, GFR, MDW, CBC, ANEU #### [address] [address] Urea nitrogen [Mass/Vol] 18 mg/dL Normal 7-18 [facility] [place] Comment on above: Performed By: #### A DIFF, CMP, GFR, MDW, CBC, ANEU #### [place] [address] [place], [place] [address] CT HEAD OR BRAIN W/O CONTRAS Ton [...] Reporton 0 05-26-2024 Urgent Care Visit Report [facility] [address], [address] [place], [place] [id number] OFFICE VISIT Date of Service: 05/26/24 MR#: [id number] Acct: [id number] Name: RENNY RUSSO Rep #: [id number] : 1950 Provider: PENNY Ayala Age/Sex: 74/M Location: [facility] Status: Signed Intake Vital Signs 04/22/24 14:09 [...] here for right eye concern began today. [facility] Medical History (Updated 05/26/24 @ 15:42 by [...] of eye globe pain or vision changes competitive intelligence analyst so states. 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 No complaints of fever, chills, sweats. MRDD patient under the care of the competitive intelligence analyst who accompanies patient today. No other complaints [...] sooner glenna (more content not included)... Normal [facility] Basic Metabolic Profile (BMP )on 04-22-2024 BUN/CRE 18.8 RATIO Normal 10-20 [facility] Comment on above: Performed By: #### L 500.2500, L100.0100 ####[facility] [address] [place], [address] CA,Total 8.4 mg/dL Low 8.5-10.1 [facility] Comment on above: Performed By: #### L 500.2500, L100.0100 ####[facility] [address] [place], [address] Chloride [Moles/Vol] 109 mmol/L High 98-107 [facility] Comment on above: Performed By: #### L 500.2500, L100.0100 ####[facility] [address] [place], [address] CO2 [Moles/Vol] 27.0 mmol/L Normal 21.0-32.0 [facility] Comment on above: Performed By: #### L 500.2500, L100.0100 ####[facility] [address] [place], [address] Creatinine [Mass/Vol] 0.90 mg/dL Normal 0.70-1.30 [facility] Comment on above: Result Comment: The validity of the calculated GFR GFRAA in patients over 70 years has not been determined. Clinical correlation is essential. Performed By: #### L 500.2500, L100.0100 ####[facility] [address] [place], [address] ECRCL 78.63 ml/min Normal [facility] Comment on above: Performed By: #### L 500.2500, L100.0100 ####[facility] [address] [place], [address] EST GFR - AA 105 mL/min Normal >60 [facility] Comment on above: Result Comment: Afri can [place] African GFR Calc Performed By: #### L 500.2500, L100.0100 ####[facility] [address] [place], [address] GAP 5 Normal 5-15 [facility] Comment on above: Performed By: #### L 500.2500, L100.0100 ####[facility] [address] [place], [address] GFR/1.73 sq M.predicted among non-blacks MDRD (S/P/Bld) [Vol rate/Area] 87 mL/min/{1.73_m2} Normal >60 [facility] Comment on above: Result Comment: Non- GFR Calc Performed By: #### L 500.2500, L100.0100 ####[facility] [address] [place], [address] Glucose [Mass/Vol] 129 mg/dL High 74-106 [facility] Comment on above: Result Comment: Fast ing Glucose result greater than or equal to 126 mg/dL suggests DIABETES MELLITUS per A.D.A. criteria. Performed By: #### L 500.2500, L100.0100 ####[facility] [address] [place], [address] Potassium [Moles/Vol] 4.1 mmol/L Normal 3.5-5.1 [facility] Comment on above: Performed By: #### L 500.2500, L100.0100 ####[facility] [address] [place], [address] Sodium [Moles/Vol] 140 mmol/L Normal 136-145 [facility] Comment on above: Performed By: #### L 500.2500, L100.0100 ####[facility] [address] [place], [address] Urea nitrogen [Mass/Vol] 17 mg/dL Normal 7-18 [facility] Comment on above: Performed By: #### L 500.2500, L100.0100 ####[facility] [address] [place], [address] CBC W/Diff, Automatedon 01-0 8-2025 Absolute Lymph 1.80 X10 3/uL Normal 0.83-4.51 [facility] Comment on above: Performed By: #### L 500.2500, L100.0100 ####[facility] [address] [place], [address] Absolute Neut 4.6 X10 3/uL Normal 2.0-7.7 [facility] Comment on above: Performed By: #### L 500.2500, L100.0100 ####[facility] [address] [place], [address] Basophils/100 WBC (Bld) 1.1 % High 0-1 [facility] Comment on above: Performed By: #### L 500.2500, L100.0100 ####[facility] [address] [place], [address] Eosinophils/100 WBC (Bld) 6.9 % High 0-5 [facility] Comment on above: Performed By: #### L 500.2500, L100.0100 ####[facility] [address] [place], [address] Erythrocyte distribution width (RBC) [Ratio] 13.2 % Normal 11.6-14.6 [facility] Comment on above: Performed By: #### L 500.2500, L100.0100 ####[facility] [address] [place], [address] Hematocrit (Bld) [Volume fraction] 40.6 % Normal 40-54 [facility] Comment on above: Performed By: #### L 500.2500, L100.0100 ####[facility] [address] [place], [address] Hemoglobin (Bld) [Mass/Vol] 13.9 g/dL Normal 13.0-16.5 [facility] Comment on above: Performed By: #### L 500.2500, L100.0100 ####[facility] [address] [place], [address] IG% 0.300 Normal 0.0-0.9 [facility] Comment on above: Result Comment: IG% - Immature Granulocytes (promyelocytes, myelocytes and metamyelocytes) > 1% indicates that a LEFT SHIFT is Present. Performed By: #### L 500.2500, L100.0100 ####[facility] [address] [place], [address] Lymphocytes/100 WBC (Bld) 23.9 % Normal 19-41 [facility] Comment on above: Performed By: #### L 500.2500, L100.0100 ####[facility] [address] [place], [address] MCH (RBC) [Entitic mass] 32.6 pg High 27.0-32.0 [facility] Comment on above: Performed By: #### L 500.2500, L100.0100 ####[facility] [address] [place], [address] MCHC (RBC) [Mass/Vol] 34.2 g/dL Normal 32-36 [facility] Comment on above: Performed By: #### L 500.2500, L100.0100 ####[facility] [address] [place], [address] MCV (RBC) [Entitic vol] 95.3 fL High 80-94 [facility] Comment on above: Performed By: #### L 500.2500, L100.0100 ####[facility] [address] [place], [address] Monocytes/100 WBC (Bld) 6.8 % Normal 0-10 [facility] Comment on above: Performed By: #### L 500.2500, L100.0100 ####[facility] [address] [place], [address] Neutrophils/100 WBC (Bld) 61.0 % Normal 47-70 [facility] Comment on above: Performed By: #### L 500.2500, L100.0100 ####[facility] [address] [place], [address] Nucleated RBC (Bld) [#/Vol] 0 10*3/uL Normal 0-5 [facility] Comment on above: Performed By: #### L 500.2500, L100.0100 ####[facility] [address] [place], [address] Platelet mean volume (Bld) [Entitic vol] 9.4 fL Normal 6.2-12.0 [facility] Comment on above: Performed By: #### L 500.2500, L100.0100 ####[facility] [address] [place], [address] Platelets (Bld) [#/Vol] 244 10*3/uL Normal 150-450 [facility] Comment on above: Performed By: #### L 500.2500, L100.0100 ####[facility] [address] [place], [address] RBC (Bld) [#/Vol] 4.26 10*6/uL Low 4.6-6.2 [facility] Comment on above: Performed By: #### L 500.2500, L100.0100 ####[facility] [address] [place], [address] RDW SD 45.5 fl High 35.1-43.9 [facility] Comment on above: Performed By: #### L 500.2500, L100.0100 ####[facility] [address] [place], [address] WBC (Bld) [#/Vol] 7.5 10*3/uL Normal 4.4-11.0 [facility] Comment on above: Performed By: #### L 500.2500, L100.0100 ####[facility] [address] [facility] [place], [address] Emergency Department Summary on 04-22-2024 Emergency Department Summary [facility] Medical Records Department [address] [place] [address] Emergency Department Summary 04/22/24 MR#: [id number] Acct: [id number] Name: RENNY RUSSO Rep #: [id number] : 1950 74 From: Jorje Alberto MD PCP: Dr. Kim Hutchinson MD Status:REG ER Location: ED ADDENDUM by Dr. Jorje Alberto MD on 04/22/24 at 1721 I spoke with infectious disease. Both of them and IR comfortable the patient being discharged home with outpatient follow-up with both ID and dermatology. I spoke to the patient and the account group supervisor. They understand that this does not need [...] Chief Complaint: Wound Informant: patient and other (prison staff member.) Onset/Context/Timing Onset: Month(s) Context: Gradual Onset Timing: Continuous Current Severity: Mild Maximum Severity: Mild Narrative Narrative: 74-year-old male history of MRSA, anxiety and diabetes. Patient lives in a correction. He has had sores on his upper and lower extremities for 2 months. He has been on different courses of antibiotics. Currently he is on both doxycycline and Keflex. Has had a history of MRSA. Basically this has not been getting better. The correction wanted him further evaluated. He was at another ER recently and was discharged home. Patient's not been ill. He has not had a fever. He has also been evaluated by ophthalmology multiple times due to redness below his right eye. He has been on antibiotics and ointments for that that is also not improving Prior similar symptoms: Yes Recent Illness/Hospitalization : No PFSH [facility] Medical History MRSA (methicillin resistant staph aureus) [...] edema. Sarai (more content not included)... Normal [facility] .Auto Diffon 2024 Basophil, Absolute 0.2 10 3/mcL Normal 0.0-0.2 [facility] Comment on above: Performed By: #### A DIFF, CBC, GFR, BMP, MDW, ANEU #### [address] [address] Basophils/100 WBC (Bld) 1.3 % Normal 0.0-2.5 [facility] Comment on above: Performed By: #### A DIFF, CBC, GFR, BMP, MDW, ANEU #### [address] [address] Eosinophil, Absolute 0.6 10 3/mcL Normal 0.0-0.7 [facility] Comment on above: Performed By: #### A DIFF, CBC, GFR, BMP, MDW, ANEU #### [address] [address] Eosinophils/100 WBC (Bld) 4.9 % Normal 0.0-7.0 [facility] Comment on above: Performed By: #### A DIFF, CBC, GFR, BMP, MDW, ANEU #### [address] [address] Lymphocyte, Absolute 2.5 10 3/mcL Normal 0.9-4.3 [facility] Comment on above: Performed By: #### A DIFF, CBC, GFR, BMP, MDW, ANEU #### [address] [address] Lymphocytes/100 WBC (Bld) 21.7 % Normal 20.0-40.0 [facility] Comment on above: Performed By: #### A DIFF, CBC, GFR, BMP, MDW, ANEU #### [address] [address] Monocyte, Absolute 0.6 10 3/mcL Normal 0.1-1.4 [facility] Comment on above: Performed By: #### A DIFF, CBC, GFR, BMP, MDW, ANEU #### [address] [address] Monocytes/100 WBC (Bld) 5.1 % Normal 2.0-13.0 [facility] Comment on above: Performed By: #### A DIFF, CBC, GFR, BMP, MDW, ANEU #### [address] [address] Neutrophils/100 WBC (Bld) 67.0 % Normal 50.0-75.0 [facility] Comment on above: Performed By: #### A DIFF, CBC, GFR, BMP, MDW, ANEU #### [address] [address] .GFRon 2024 GFR 90 ml/min/1.73sqm Normal [facility] [...] A DIFF, CBC, GFR, BMP, MDW, ANEU ####[place] [place], [place] [address] GFR Non- 74 ml/min/1.73sqm Normal [facility] [...] A DIFF, CBC, GFR, BMP, MDW, ANEU ####[address] [place], [place] [address] .MDWon 2024 Monocyte Distribution Width 16.33 Normal 0.00-20.00 [facility] Comment on above: Result Comment: For ED adult patients suspected of sepsis, MDW<=20.0 does not rule out sepsis or risk of sepsis Performed By: #### A DIFF, CBC, GFR, BMP, MDW, ANEU ####[facility] [place], [place] [address] .NEUABSon 2024 Neutrophil, Absolute 7.6 10 3/mcL Normal 2.3-8.1 [facility] Comment on above: Performed By: #### A DIFF, CBC, GFR, BMP, MDW, ANEU ####[address] [address] [place], [place] [address] BMPon 2024 BUN/Creatinine Ratio 22 ratio Normal 7-27 [facility] Comment on above: Performed By: #### A DIFF, CBC, GFR, BMP, MDW, ANEU ####[address] [address] Calcium [Mass/Vol] 9.3 mg/dL Normal 8.4-10.2 [facility] Comment on above: Performed By: #### A DIFF, CBC, GFR, BMP, MDW, ANEU ####[address] [address] Chloride [Moles/Vol] 103 mmol/L Normal 98-107 [facility] Comment on above: Performed By: #### A DIFF, CBC, GFR, BMP, MDW, ANEU ####[place] [address] CO2 [Moles/Vol] 29 mmol/L Normal 23-31 [facility] Comment on above: Performed By: #### A DIFF, CBC, GFR, BMP, MDW, ANEU ####[place] [address] Electrolyte Balance 9.0 mEq/L Normal 4.0-15.0 [facility] Comment on above: Performed By: #### A DIFF, CBC, GFR, BMP, MDW, ANEU ####[address] [address] Glucose [Mass/Vol] 84 mg/dL Normal 83-110 [facility] Comment on above: Performed By: #### A DIFF, CBC, GFR, BMP, MDW, ANEU ####[address] [address] Potassium [Moles/Vol] 4.1 mmol/L Normal 3.5-5.1 [facility] Comment on above: Performed By: #### A DIFF, CBC, GFR, BMP, MDW, ANEU ####[place] [address] Sodium [Moles/Vol] 141 mmol/L Normal 136-145 [facility] Comment on above: Performed By: #### A DIFF, CBC, GFR, BMP, MDW, ANEU ####[address] [address] Urea nitrogen [Mass/Vol] 22 mg/dL High 7-18 [facility] Comment on above: Performed By: #### A DIFF, CBC, GFR, BMP, MDW, ANEU ####[address] [address] Creatinine [Mass/Vol] 0.99 mg/dL Normal 0.70-1.30 [facility] Comment on above: Result Comment: Test ing performed on [employer] Dimension EXL analyzer using a modified kinetic Colleen technique. Performed By: #### A DIFF, CBC, GFR, BMP, MDW, ANEU ####[address] [address] CBCon 2024 Erythrocyte distribution width (RBC) [Ratio] 13.7 % Normal 11.5-15.5 [facility] Comment on above: Performed By: #### A DIFF, CBC, GFR, BMP, MDW, ANEU #### [address] [address] Hematocrit (Bld) [Volume fraction] 44.3 % Normal 40.0-52.0 [facility] Comment on above: Performed By: #### A DIFF, CBC, GFR, BMP, MDW, ANEU #### [address] [address] Hgb 15.2 G/dL Normal 13.0-17.5 [facility] Comment on above: Performed By: #### A DIFF, CBC, GFR, BMP, MDW, ANEU #### [address] [address] MCH (RBC) [Entitic mass] 32.3 pg Normal 27.0-33.0 [facility] Comment on above: Performed By: #### A DIFF, CBC, GFR, BMP, MDW, ANEU #### [address] [address] MCHC 34.2 G/dL Normal 32.0-36.0 [facility] Comment on above: Performed By: #### A DIFF, CBC, GFR, BMP, MDW, ANEU #### [address] [address] MCV (RBC) [Entitic vol] 94.4 fL Normal 81.0-100.0 [facility] Comment on above: Performed By: #### A DIFF, CBC, GFR, BMP, MDW, ANEU #### [address] [address] Platelet 286 10 3/mcL Normal 150-450 [facility] Comment on above: Performed By: #### A DIFF, CBC, GFR, BMP, MDW, ANEU #### [address] [address] Platelet mean volume (Bld) [Entitic vol] 7.1 fL Normal 6.4-10.5 [facility] Comment on above: Performed By: #### A DIFF, CBC, GFR, BMP, MDW, ANEU #### [address] [address] RBC 4.69 10 6/mcL Normal 4.50-6.00 [facility] Comment on above: Performed By: #### A DIFF, CBC, GFR, BMP, MDW, ANEU #### [address] [address] WBC 11.3 10 3/mcL High 4.5-10.8 [facility] Comment on above: Performed By: #### A DIFF, CBC, GFR, BMP, MDW, ANEU #### [address] [address] [address] ORBIT W/ CONTRASTon 04-20 CT ORBIT [...] S Vancomycin Islt BRET 1 S Normal [facility] Comment on above: Performed By: #### M 100.2000, M100.3000 #### [facility] [address] [place], [place], [address] Gram Stainon 04-01-2024 GS Gram Stain No organisms seen No cells seen Normal [facility] Comment on above: Performed By: #### M 100.2000, M100.3000 #### [facility] [address] [place], [address] CNOVon 02-06-2024 CNOV Office Visit (UCWSTR ) RENNY RUSSO ([id number]) 1950 M Date Time Provider Department 02/06/24 11:15 AM JUMANA SOLIZ [facility] During your visit today, we recorded the following information about you: Respiration Weight 16/minute 77.1 kg Jumana Soliz APRN.HOME HEALTH CLINICIAN 02/06/2024 11:35 AM Signed CONJUNCTIVITIS GENERAL INFORMATION: [...] over 100.5 F (38 C). Jumana Soliz APRN.HOME HEALTH CLINICIAN 02/06/2024 12:10 PM Signed Subjective HPI HPI [...] not taking: Reported on 02/06/2024) timolol/dorzolamide/lat anop/PF (QJGVAOZ-LEWHOSAMEA-ZYG ANOP,PF,) 0.5-2-0.005 % drop Use in eyes. (Patient not taking: Reported on 02/06/2024) QUEtia (more content not included)... Normal [facility] CBC W/Diff, Automatedon 01-13 Absolute Lymph 2.20 X10 3/uL Normal 0.83-4.51 [facility] Comment on above: Performed By: #### L 503.0105, L501.9910, L500.4050, L501.9520, L500.4100, L100.0100 ####[facility] [address] [place], [address] Absolute Neut 6.4 X10 3/uL Normal 2.0-7.7 [facility] Comment on above: Performed By: #### L 503.0105, L501.9910, L500.4050, L501.9520, L500.4100, L100.0100 ####[facility] [address] [place], [address] Basophils/100 WBC (Bld) 0.9 % Normal 0-1 [facility] Comment on above: Performed By: #### L 503.0105, L501.9910, L500.4050, L501.9520, L500.4100, L100.0100 ####[facility] [address] [place], [address] Eosinophils/100 WBC (Bld) 4.9 % Normal 0-5 [facility] Comment on above: Performed By: #### L 503.0105, L501.9910, L500.4050, L501.9520, L500.4100, L100.0100 ####[facility] [address] [place], [address] Erythrocyte distribution width (RBC) [Ratio] 13.5 % Normal 11.6-14.6 [facility] Comment on above: Performed By: #### L 503.0105, L501.9910, L500.4050, L501.9520, L500.4100, L100.0100 ####[facility] [address] [place], [address] Hematocrit (Bld) [Volume fraction] 41.5 % Normal 40-54 [facility] Comment on above: Performed By: #### L 503.0105, L501.9910, L500.4050, L501.9520, L500.4100, L100.0100 ####[facility] [address] [place], [address] Hemoglobin (Bld) [Mass/Vol] 13.7 g/dL Normal 13.0-16.5 [facility] Comment on above: Performed By: #### L 503.0105, L501.9910, L500.4050, L501.9520, L500.4100, L100.0100 ####[facility] [address] [place], [address] IG% 0.300 Normal 0.0-0.9 [facility] Comment on above: Result Comment: IG% - Immature Granulocytes (promyelocytes, myelocytes and metamyelocytes) > 1% indicates that a LEFT SHIFT is Present. Performed By: #### L 503.0105, L501.9910, L500.4050, L501.9520, L500.4100, L100.0100 ####[facility] [address] [place], [address] Lymphocytes/100 WBC (Bld) 22.3 % Normal 19-41 [facility] Comment on above: Performed By: #### L 503.0105, L501.9910, L500.4050, L501.9520, L500.4100, L100.0100 ####[facility] [address] [place], [address] MCH (RBC) [Entitic mass] 31.4 pg Normal 27.0-32.0 [facility] Comment on above: Performed By: #### L 503.0105, L501.9910, L500.4050, L501.9520, L500.4100, L100.0100 ####[facility] [address] [place], [address] MCHC (RBC) [Mass/Vol] 33.0 g/dL Normal 32-36 [facility] Comment on above: Performed By: #### L 503.0105, L501.9910, L500.4050, L501.9520, L500.4100, L100.0100 ####[facility] [address] [place], [address] MCV (RBC) [Entitic vol] 95.2 fL High 80-94 [facility] Comment on above: Performed By: #### L 503.0105, L501.9910, L500.4050, L501.9520, L500.4100, L100.0100 ####[facility] [address] [place], [address] Monocytes/100 WBC (Bld) 7.0 % Normal 0-10 [facility] Comment on above: Performed By: #### L 503.0105, L501.9910, L500.4050, L501.9520, L500.4100, L100.0100 ####[facility] [address] [place], [address] Neutrophils/100 WBC (Bld) 64.6 % Normal 47-70 [facility] Comment on above: Performed By: #### L 503.0105, L501.9910, L500.4050, L501.9520, L500.4100, L100.0100 ####[facility] [address] [place], [address] Nucleated RBC (Bld) [#/Vol] 0 10*3/uL Normal 0-5 [facility] Comment on above: Performed By: #### L 503.0105, L501.9910, L500.4050, L501.9520, L500.4100, L100.0100 ####[facility] [address] [place], [address] Platelet mean volume (Bld) [Entitic vol] 10.0 fL Normal 6.2-12.0 [facility] Comment on above: Performed By: #### L 503.0105, L501.9910, L500.4050, L501.9520, L500.4100, L100.0100 ####[facility] [address] [place], [address] Platelets (Bld) [#/Vol] 228 10*3/uL Normal 150-450 [facility] Comment on above: Performed By: #### L 503.0105, L501.9910, L500.4050, L501.9520, L500.4100, L100.0100 ####[facility] [address] [place], [address] RBC (Bld) [#/Vol] 4.36 10*6/uL Low 4.6-6.2 [facility] Comment on above: Performed By: #### L 503.0105, L501.9910, L500.4050, L501.9520, L500.4100, L100.0100 ####[facility] [address] [place], [address] RDW SD 46.7 fl High 35.1-43.9 [facility] Comment on above: Performed By: #### L 503.0105, L501.9910, L500.4050, L501.9520, L500.4100, L100.0100 ####[facility] [address] [place], [address] WBC (Bld) [#/Vol] 9.9 10*3/uL Normal 4.4-11.0 [facility] Comment on above: Performed By: #### L 503.0105, L501.9910, L500.4050, L501.9520, L500.4100, L100.0100 ####[facility] [address] [place], [address] Comprehensive Metabolic Prof ilon 01-23-2024 Albumin [Mass/Vol] 3.4 g/dL Normal 3.2-5.0 [facility] Comment on above: Performed By: #### L 503.0105, L501.9910, L500.4050, L501.9520, L500.4100, L100.0100 ####[facility] [address] [place], [address] Albumin/Globulin [Mass ratio] 1.0 {ratio} Normal 0.9-2.4 [facility] Comment on above: Performed By: #### L 503.0105, L501.9910, L500.4050, L501.9520, L500.4100, L100.0100 ####[facility] [address] [place], [address] ALK P 71 U/L Normal 45-117 [facility] Comment on above: Performed By: #### L 503.0105, L501.9910, L500.4050, L501.9520, L500.4100, L100.0100 ####[facility] [address] [place], [address] ALT [Catalytic activity/Vol] 28 U/L Normal 16-61 [facility] Comment on above: Performed By: #### L 503.0105, L501.9910, L500.4050, L501.9520, L500.4100, L100.0100 ####[facility] [address] [place], [address] AST [Catalytic activity/Vol] 14 U/L Low 15-37 [facility] Comment on above: Performed By: #### L 503.0105, L501.9910, L500.4050, L501.9520, L500.4100, L100.0100 ####[facility] [address] [place], [address] Bilirubin [Mass/Vol] 0.50 mg/dL Normal 0.20-1.00 [facility] Comment on above: Result Comment: For patients on eltrombopag therapy, use of Dimension Sargent TBIL is not recommended. Performed By: #### L 503.0105, L501.9910, L500.4050, L501.9520, L500.4100, L100.0100 ####[facility] [address] [place], [address] BUN/CRE 17.9 RATIO Normal 10-20 [facility] Comment on above: Performed By: #### L 503.0105, L501.9910, L500.4050, L501.9520, L500.4100, L100.0100 ####[facility] [address] [place], [address] CA,Total 8.8 mg/dL Normal 8.5-10.1 [facility] Comment on above: Performed By: #### L 503.0105, L501.9910, L500.4050, L501.9520, L500.4100, L100.0100 ####[facility] [address] [place], [address] Chloride [Moles/Vol] 109 mmol/L High 98-107 [facility] Comment on above: Performed By: #### L 503.0105, L501.9910, L500.4050, L501.9520, L500.4100, L100.0100 ####[facility] [address] [place], [address] CO2 [Moles/Vol] 24.0 mmol/L Normal 21.0-32.0 [facility] Comment on above: Performed By: #### L 503.0105, L501.9910, L500.4050, L501.9520, L500.4100, L100.0100 ####[facility] [address] [place], [address] Creatinine [Mass/Vol] 0.95 mg/dL Normal 0.70-1.30 [facility] Comment on above: Result Comment: The validity of the calculated GFR GFRAA in patients over 70 years has not been determined. Clinical correlation is essential. Performed By: #### L 503.0105, L501.9910, L500.4050, L501.9520, L500.4100, L100.0100 ####[facility] [address] [place], [address] EST GFR - AA 100 mL/min Normal >60 [facility] Comment on above: Result Comment: Afri can [place] African GFR Calc Performed By: #### L 503.0105, L501.9910, L500.4050, L501.9520, L500.4100, L100.0100 ####[facility] [address] [place], [address] GAP 7 Normal 5-15 [facility] Comment on above: Performed By: #### L 503.0105, L501.9910, L500.4050, L501.9520, L500.4100, L100.0100 ####[facility] [address] [place], [address] GFR/1.73 sq M.predicted among non-blacks MDRD (S/P/Bld) [Vol rate/Area] 82 mL/min/{1.73_m2} Normal >60 [facility] Comment on above: Result Comment: Non- GFR Calc Performed By: #### L 503.0105, L501.9910, L500.4050, L501.9520, L500.4100, L100.0100 ####[facility] [address] [place], [address] Globulin (S) [Mass/Vol] 3.5 g/dL Normal 2.2-4.2 [facility] Comment on above: Performed By: #### L 503.0105, L501.9910, L500.4050, L501.9520, L500.4100, L100.0100 ####[facility] [address] [place], [address] Glucose [Mass/Vol] 76 mg/dL Normal 74-106 [facility] Comment on above: Performed By: #### L 503.0105, L501.9910, L500.4050, L501.9520, L500.4100, L100.0100 ####[facility] [address] [place], [address] Potassium [Moles/Vol] 4.0 mmol/L Normal 3.5-5.1 [facility] Comment on above: Performed By: #### L 503.0105, L501.9910, L500.4050, L501.9520, L500.4100, L100.0100 ####[facility] [address] [place], [address] Sodium [Moles/Vol] 140 mmol/L Normal 136-145 [facility] Comment on above: Performed By: #### L 503.0105, L501.9910, L500.4050, L501.9520, L500.4100, L100.0100 ####[facility] [address] [place], [address] T PROT 6.9 g/dL Normal 6.4-8.2 [facility] Comment on above: Performed By: #### L 503.0105, L501.9910, L500.4050, L501.9520, L500.4100, L100.0100 ####[facility] [address] [place], [address] Urea nitrogen [Mass/Vol] 17 mg/dL Normal 7-18 [facility] Comment on above: Performed By: #### L 503.0105, L501.9910, L500.4050, L501.9520, L500.4100, L100.0100 ####[facility] [address] [place], [address] Lipid Profileon 01-23-2024 Cholesterol [Mass/Vol] 136 mg/dL Normal 200 [facility] Comment on above: Result Comment: <200 mg/dL Desirable 200-240 mg/dL Borderline >240 mg/dL High Risk Performed By: #### L 503.0105, L501.9910, L500.4050, L501.9520, L500.4100, L100.0100 ####[facility] [address] [place], [address] Cholesterol in HDL [Mass/Vol] 44 mg/dL Normal [facility] Comment on above: Result Comment: The drugs N-Acetylcysteine and Metamizole may falsely depress this assay. Reference Range HDL <40 mg/dL Low HDL Cholesterol HDL >or= 60 mg/dL High HDL Cholesterol Performed By: #### L 503.0105, L501.9910, L500.4050, L501.9520, L500.4100, L100.0100 ####[facility] [address] [place], [address] Cholesterol in LDL [Mass/Vol] 66 mg/dL Normal 0-130 [facility] Comment on above: Performed By: #### L 503.0105, L501.9910, L500.4050, L501.9520, L500.4100, L100.0100 ####[facility] [address] [place], [address] Cholesterol in VLDL [Mass/Vol] 26 mg/dL Normal 5-40 [facility] Comment on above: Performed By: #### L 503.0105, L501.9910, L500.4050, L501.9520, L500.4100, L100.0100 ####[facility] [address] [place], [address] Triglyceride [Mass/Vol] 128 mg/dL Normal [facility] Comment on above: Result Comment: The drugs N-Acetylcysteine and Metamizole may falsely depress this assay. Serum Triglycerides Reference Interval Normal <150 mg/dL Borderline high 150 - 199 mg/dL High 200 - 499 mg/dL Very High > or = 500 mg/dL Performed By: #### L 503.0105, L501.9910, L500.4050, L501.9520, L500.4100, L100.0100 ####[facility] [address] [place], [place], [id number] PSA,Total - Annual Screenon 01-23-2024 PSA,TOT SCREEN 0.78 ng/mL Normal 0.00-4.00 [facility] Comment on above: Result Comment: This test was performed using the TPSA assay method for the [employer] chemistry system. Values obtained with different assay methods cannot be used interchangably. When changing PSA assays in the course of monitoring a patient, additional sequential testing should be carried out to confirm baseline values. Performed By: #### L 503.0105, L501.9910, L500.4050, L501.9520, L500.4100, L100.0100 ####[facility] [address] [place], [place], [address] Thyroid Stim Hormone (TSH)on 01-23-2024 TSH 2.330 uIU/mL Normal 0.358-3.740 [facility] Comment on above: Performed By: #### L 503.0105, L501.9910, L500.4050, L501.9520, L500.4100, L100.0100 ####[facility] [address] [place], [place], [id number] Vitamin B12on 01-23-2024 Cobalamin (Vitamin B12) [Mass/Vol] 591 pg/mL Normal 211-911 [facility] Comment on above: Performed By: #### L 503.0105, L501.9910, L500.4050, L501.9520, L500.4100, L100.0100 ####[facility] [address] [place], [address] ENDOon 11-20-2023 TTG Ab (IgA) <4.0 Normal <=3.9 [facility] ([place]) Comment on above: Result Comment: Effmikaela ctive [...] These test results were obtained with the Umami QUANTA Lite R-tTG IgA [place] NENA. R-tTG IgA values obtained with different manufacturers' assay methods may not be used interchangeably. Performed By: #### L IP, CMP, MDW, TROPHS, GFR, DIFF, MORPH, CBC #### [address] [address] [id number] 11-20-2023 SYED-65 8.3 units/ml High 0.0-5.0 [facility] [place] ([place]) Comment on above: Result Comment: Perf ormed At: [facility] [id number] Donovan Ramírez MD Ph:[phone] Performed By: #### L IP, CMP, MDW, TROPHS, GFR, DIFF, MORPH, CBC #### [address] [id number] GLIADon 11-20-2023 Gliadin Ab IgA <20 Normal <=19 [facility] [place] ([place]) Comment on above: Result Comment: Glia din [...] REGINA, TROPHS, GFR, DIFF, MORPH, CBC #### [address] [address] Gliadin Ab IgG <20 Normal <=19 [facility] ([place]) Comment on above: Result Comment: Glia din [...] REGINA, TROPHS, GFR, DIFF, MORPH, CBC #### [address] [address] ISLETon 11-20-2023 Panc Islet Cell Ab Negative Normal Neg:<1:1 [facility] ([place]) Comment on above: Result Comment: Perf ormed At: [facility] [address] [id number] Donovan Ramírez MD Ph:[phone] Performed By: #### L IP, CMP, MDW, TROPHS, GFR, DIFF, MORPH, CBC #### [address] [address] .Auto Diffon 11-15-2023 Basophil, Absolute 0.1 10 3/mcL Normal 0.0-0.2 [facility] ([place]) Comment on above: Performed By: #### L IP, CMP, MDW, TROPHS, GFR, DIFF, MORPH, CBC #### [address] [address] Basophils/100 WBC (Bld) 1.0 % Normal 0.0-2.5 A [facility] ([place]) Comment on above: Performed By: #### L IP, CMP, MDW, TROPHS, GFR, DIFF, MORPH, CBC #### [address] [address] Eosinophil, Absolute 0.5 10 3/mcL High 0.0-0.4 [facility] ([place]) Comment on above: Performed By: #### L IP, CMP, MDW, TROPHS, GFR, DIFF, MORPH, CBC #### [address] [address] Eosinophils/100 WBC (Bld) 5.1 % Normal 0.0-7.0 [facility] ([place]) Comment on above: Performed By: #### L IP, CMP, MDW, TROPHS, GFR, DIFF, MORPH, CBC #### [address] [address] Lymphocyte, Absolute 2.3 10 3/mcL Normal 0.8-3.9 [facility] ([place]) Comment on above: Performed By: #### L IP, CMP, MDW, TROPHS, GFR, DIFF, MORPH, CBC #### [address] [address] Lymphocytes/100 WBC (Bld) 25.3 % Normal 10.0-50.0 [facility] ([place]) Comment on above: Performed By: #### L IP, CMP, MDW, TROPHS, GFR, DIFF, MORPH, CBC #### [address] [address] Monocyte, Absolute 0.6 10 3/mcL Normal 0.2-1.0 [facility] ([place]) Comment on above: Performed By: #### L IP, CMP, MDW, TROPHS, GFR, DIFF, MORPH, CBC #### [address] [address] Monocytes/100 WBC (Bld) 6.3 % Normal 1.7-13.0 [facility] ([place]) Comment on above: Performed By: #### L IP, CMP, MDW, TROPHS, GFR, DIFF, MORPH, CBC #### [address] [address] Neutrophils/100 WBC (Bld) 62.3 % Normal 37.0-80.0 [facility] ([place]) Comment on above: Performed By: #### L IP, CMP, MDW, TROPHS, GFR, DIFF, MORPH, CBC #### [address] [address] .GFRon 11-15-2023 GFR Non- 75 ml/min/1.73sqm Normal [facility] ([place]) Comment on above: Result Comment: GFR Population [...] MDW, TROPHS, GFR, DIFF, MORPH, CBC #### [address] [address] GFR 91 ml/min/1.73sqm Normal [facility] ([place]) Comment on above: Result Comment: GFR Population [...] MDW, TROPHS, GFR, DIFF, MORPH, CBC #### [address] [address] .NEUABSon 11-15-2023 Neutrophil, Absolute 5.7 10 3/mcL Normal 2.9-6.2 [facility] ([place]) Comment on above: Performed By: #### L IP, CMP, MDW, TROPHS, GFR, DIFF, MORPH, CBC #### [address] [address] CBCon 11-15-2023 Erythrocyte distribution width (RBC) [Ratio] 13.6 % Normal 11.5-14.5 [facility] ([place]) Comment on above: Performed By: #### L IP, CMP, MDW, TROPHS, GFR, DIFF, MORPH, CBC #### [address] [address] Hematocrit (Bld) [Volume fraction] 39.7 % Low 42.0-52.0 [facility] ([place]) Comment on above: Performed By: #### L IP, CMP, MDW, TROPHS, GFR, DIFF, MORPH, CBC #### [address] [address] Hgb 13.5 G/dL Low 14.0-18.0 [facility] ([place]) Comment on above: Performed By: #### L IP, CMP, MDW, TROPHS, GFR, DIFF, MORPH, CBC #### [address] [address] MCH (RBC) [Entitic mass] 32.6 pg High 27.0-31.2 [facility] ([place]) Comment on above: Performed By: #### L IP, CMP, MDW, TROPHS, GFR, DIFF, MORPH, CBC #### [address] [address] MCHC 34.1 G/dL Normal 31.8-35.4 [facility] ([place]) Comment on above: Performed By: #### L IP, CMP, MDW, TROPHS, GFR, DIFF, MORPH, CBC #### [address] [address] MCV (RBC) [Entitic vol] 95.6 fL High 80.0-94.0 A [facility] ([place]) Comment on above: Performed By: #### L IP, CMP, MDW, TROPHS, GFR, DIFF, MORPH, CBC #### [address] [address] Platelet 212 10 3/mcL Normal 130-400 [facility] ([place]) Comment on above: Performed By: #### L IP, CMP, MDW, TROPHS, GFR, DIFF, MORPH, CBC #### [address] [address] Platelet mean volume (Bld) [Entitic vol] 7.5 fL Normal 7.4-10.4 [facility] ([place]) Comment on above: Performed By: #### L IP, CMP, MDW, TROPHS, GFR, DIFF, MORPH, CBC #### [address] [address] RBC 4.15 10 6/mcL Normal 4.04-6.13 [facility] ([place]) Comment on above: Performed By: #### L IP, CMP, MDW, TROPHS, GFR, DIFF, MORPH, CBC #### [address] [address] WBC 9.1 10 3/mcL Normal 4.6-10.8 [facility] ([place]) Comment on above: Performed By: #### L IP, CMP, MDW, TROPHS, GFR, DIFF, MORPH, CBC #### [address] [address] CMPon 11-15-2023 Albumin Level 3.5 G/dL Normal 3.4-4.8 [facility] ([place]) Comment on above: Performed By: #### L IP, CMP, MDW, TROPHS, GFR, DIFF, MORPH, CBC #### [address] [address] Albumin/Globulin [Mass ratio] 1.1 {ratio} Normal 1.1-2.5 [facility] ([place]) Comment on above: Performed By: #### L IP, CMP, MDW, TROPHS, GFR, DIFF, MORPH, CBC #### [address] [address] ALP [Catalytic activity/Vol] 73 U/L Normal 40-135 [facility] ([place]) Comment on above: Performed By: #### L IP, CMP, MDW, TROPHS, GFR, DIFF, MORPH, CBC #### [address] [address] ALT [Catalytic activity/Vol] 39 U/L Normal 16-63 [facility] ([place]) Comment on above: Performed By: #### L IP, CMP, MDW, TROPHS, GFR, DIFF, MORPH, CBC #### [address] [address] AST [Catalytic activity/Vol] 15 U/L Normal 10-40 [facility] ([place]) Comment on above: Performed By: #### L IP, CMP, MDW, TROPHS, GFR, DIFF, MORPH, CBC #### [address] [address] Bili Total 0.5 mg/dL Normal 0.2-1.0 [facility] ([place]) Comment on above: Result Comment: Use of this assay is not recommended for patients undergoing treatment with eltrombopag due to the potential for falsely elevated results. Performed By: #### L IP, CMP, MDW, TROPHS, GFR, DIFF, MORPH, CBC #### [address] [address] BUN/Creatinine Ratio 27 ratio Normal 7-27 [facility] ([place]) Comment on above: Performed By: #### L IP, CMP, MDW, TROPHS, GFR, DIFF, MORPH, CBC #### [address] [address] Calcium [Mass/Vol] 9.1 mg/dL Normal 8.4-10.2 [facility] ([place]) Comment on above: Performed By: #### L IP, CMP, MDW, TROPHS, GFR, DIFF, MORPH, CBC #### [address] [address] Chloride [Moles/Vol] 111 mmol/L High 98-107 [facility] ([place]) Comment on above: Performed By: #### L IP, CMP, MDW, TROPHS, GFR, DIFF, MORPH, CBC #### [address] [address] CO2 [Moles/Vol] 26 mmol/L Normal 23-31 [facility] ([place]) Comment on above: Performed By: #### L IP, CMP, MDW, TROPHS, GFR, DIFF, MORPH, CBC #### [address] [address] Creatinine [Mass/Vol] 0.98 mg/dL Normal 0.70-1.30 [facility] ([place]) Comment on above: Performed By: #### L IP, CMP, MDW, TROPHS, GFR, DIFF, MORPH, CBC #### [address] [address] Electrolyte Balance 11.0 mEq/L Normal 4.0-15.0 [facility] ([place]) Comment on above: Performed By: #### L IP, CMP, MDW, TROPHS, GFR, DIFF, MORPH, CBC #### [address] [address] Globulin 3.1 G/dL Normal [facility] ([place]) Comment on above: Performed By: #### L IP, CMP, MDW, TROPHS, GFR, DIFF, MORPH, CBC #### [address] [address] Glucose [Mass/Vol] 102 mg/dL Normal 83-110 [facility] ([place]) Comment on above: Performed By: #### L IP, CMP, MDW, TROPHS, GFR, DIFF, MORPH, CBC #### [address] [address] Potassium [Moles/Vol] 4.0 mmol/L Normal 3.5-5.1 [facility] ([place]) Comment on above: Performed By: #### L IP, CMP, MDW, TROPHS, GFR, DIFF, MORPH, CBC #### [address] [address] Sodium [Moles/Vol] 148 mmol/L High 136-145 [facility] ([place]) Comment on above: Performed By: #### L IP, CMP, MDW, TROPHS, GFR, DIFF, MORPH, CBC #### [address] [address] Total Protein 6.6 G/dL Normal 6.4-8.2 [facility] ([place]) Comment on above: Performed By: #### L IP, CMP, MDW, TROPHS, GFR, DIFF, MORPH, CBC #### [address] [address] Urea nitrogen [Mass/Vol] 26 mg/dL High 7-18 [facility] ([place]) Comment on above: Performed By: #### L IP, CMP, MDW, TROPHS, GFR, DIFF, MORPH, CBC #### [address] [address] CPEPon 11-15-2023 C-Peptide 1.06 ng/mL Normal 0.81-3.85 [facility] ([place]) Comment on above: Performed By: #### L IP, CMP, MDW, TROPHS, GFR, DIFF, MORPH, CBC #### [place] [address] FEon 11-15-2023 Iron [Mass/Vol] 95 ug/dL Normal 65-175 [facility] ([place]) Comment on above: Performed By: #### L IP, CMP, MDW, TROPHS, GFR, DIFF, MORPH, CBC #### [place] [address] Silvia 11-15-2023 Ferritin [Mass/Vol] 221.0 ng/mL Normal 26.0-388.0 [facility] ([place]) Comment on above: Performed By: #### L IP, CMP, MDW, TROPHS, GFR, DIFF, MORPH, CBC #### [place] [address] IBCon 11-15-2023 TIBC 244 mcg/dL Low 250-450 [facility] ([place]) Comment on above: Performed By: #### L IP, CMP, MDW, TROPHS, GFR, DIFF, MORPH, CBC #### [place] [address] IGAon 11-15-2023 IgA [Mass/Vol] 342 mg/dL Normal 40-350 [facility] ([place]) Comment on above: Result Comment: No te - New Reference Range in effect 19 Performed By: #### L IP, CMP, MDW, TROPHS, GFR, DIFF, MORPH, CBC #### [address] [address] LABORATORYOrdered By: Ayo Funes on 11-15-2023 Albumin [...] 11-15-2023 Cholesterol [Mass/Vol] 133 mg/dL Normal 0-200 [facility] ([place]) Comment on above: Result Comment: Chol esterol Reference Interval: Less than 200 Desirable 200-239 Borderline high risk 240 and above High risk Performed By: #### L RUSSELL, DIANA, REGINA, TROPHS, GFR, DIFF, MORPH, CBC #### [address] [address] [place], [place] [address] Cholesterol in HDL [Mass/Vol] 49 mg/dL Normal 40-60 [facility] ([place]) Comment on above: Performed By: #### L RUSSELL, DIANA, W, TROPHS, GFR, DIFF, MORPH, CBC #### [address] [address] Cholesterol in LDL [Mass/Vol] 77 mg/dL Normal 0-130 [facility] ([place]) Comment on above: Performed By: #### L IP, DIANA, MDW, TROPHS, GFR, DIFF, MORPH, CBC #### [address] [address] Triglyceride [Mass/Vol] 37 mg/dL Normal 0-150 A [facility] ([place]) Comment on above: Result Comment: Trig lyceride Reference Interval: Less than 150 Normal 150-199 Borderline high risk 200-499 High risk 500 or higher Very high risk Performed By: #### L IP, DIANA, W, TROPHS, GFR, DIFF, MORPH, CBC #### [address] [address] MALBRon 11-15-2023 U Creatinine 128.1 mg/dL Normal 39.0-259.0 [facility] ([place]) Comment on above: Performed By: #### L IP, DIANA, W, TROPHS, GFR, DIFF, MORPH, CBC #### [address] [address] U Microalb 872 mcg/dL Normal [facility] ([place]) Comment on above: Performed By: #### L IP, DIANA, W, TROPHS, GFR, DIFF, MORPH, CBC #### [address] [address] U Ratio Alb/Cre 7 mcg/mg Normal 0-30 [facility] ([place]) Comment on above: Performed By: #### L IP, DIANA, MDW, TROPHS, GFR, DIFF, MORPH, CBC #### [address] [address] TSHon 11-15-2023 TSH Qn 2.47 m[IU]/L Normal 0.36-3.74 [facility] ([place]) Comment on above: Performed By: #### L IP, CMP, MDW, TROPHS, GFR, DIFF, MORPH, CBC #### [place] [address] VIDHon 11-15-2023 Vit. D 25-Hydroxy 34.7 ng/mL Normal [facility] ([place]) Comment on above: Result Comment: Inte rpretive Values Based on Total 25(OH) Vitamin D: Deficient <20 ng/mL Insufficient 20 - <30 ng/mL Sufficient 30-100 ng/mL Performed By: #### L IP, CMP, MDW, TROPHS, GFR, DIFF, MORPH, CBC #### [address] [place] [id number] [place], [place] [address] Yenny 08-12-2023 [facility] Telephone ([facility]) RENNY RUSSO ([id number]) 1950 Date Time Provider Department 08/12/23 AMILCAR VERONICA [facility] During your visit today, we recorded the following information about you: Amilcar Veronica MD 08/12/2023 8:38 AM Signed Culture grew staph bacteria. I have sent an oral antibiotic to the pharmacy in [place] to help treat. Continue applying the antifungal cream to the umbilicus. Katiuska Palomares, MARISA 08/12/2023 3:14 PM Signed accounts manager Josefina returning the call as she states [facility] and that she thinks they attempted to call her. She is notified that pt has a staph infection and needs an antibiotic in addition to continuing the antifungal cream to the umbilicus. Notified that the antibiotic was sent to the pharmacy in [place]. She states that they no longer use that pharmacy and would like antibiotic sent to pt's mail order in [place], [place]. Instructed that pt needs to start the antibiotic today so will need to send to a local pharmacy. After much encouragement, Josefina asks that script be sent to [email or web address] in [place] and she will pick it up there. Notified guardian Maggie Neves about pt's results and need for antibiotics. She requests that the nurse Veronica needs to be notified as soon as possible. Attempted to contact her and VM went to a [employer] phone number. No msg left. Maggie had stated to call [facility] where pt is currently living and get Veronica's phone number. Called and spoke with Junie at [facility] who states [employer] sometimes covers for Veronica. [...] be applied. She will email nurse and fish house worker in charge to follow up. Katiuska Palomares, MARISA 08/12/2023 3:14 PM Signed Called and instructed [place] pharmacy not to fill script. Called and spoke with Yvette at [facility] in [place]. Gave her verbal order for antibiotic. Allergies [...] Apply to affected area. - timolol/dorzolamide/lat anop/PF (PYCWBKX-EAUSLSMOFR-VPK ANOP,PF,) 0.5-2-0.005 % drop Use in eyes. [...] Status:Closed by SAHARA CHUN on 08/12/23 Normal [facility] Bacteria Wnd Culton 08-09-19 Bacteria identified [...] , Intermediate >4 , Resistant >8 Abnormal [facility] Comment on above: Performed By: #### [id number] #### [facility] CLIA [id number] [address] [place] [address] [place] CNOVon 08-09-2023 CNOV Office Visit ([facility] ) RENNY RUSSO ([id number]) 1950 M Date Time Provider Department 08/09/23 6:30 PM AMILCAR VERONICA [facility] During your visit today, we recorded the [...] TOPICAL) Apply to affected area. timolol/dorzolamide/lat anop/PF (QITXPCF-HQGZXCCJIT-WRT ANOP,PF,) 0.5-2-0.005 % drop Use in eyes. [...] CULTURE WITH GRAM STAIN [SQWCUL] Order #: [id number]. #:[id number] clotrimazole (LOTRIMIN) 1 % creamApply to affected [...] Apply to affected area. - timolol/dorzolamide/lat anop/PF (PHFLIUV-PGLLNYRLOG-BIM ANOP,PF,) 0.5-2-0.005 % drop Use in eyes. [...] ordered thi (more content not included)... Normal [facility] .Auto Diffon 08-07-2023 Basophil, Absolute 0.1 10 3/mcL Normal 0.0-0.2 [facility] ([place]) Comment on above: Performed By: #### C CHARLENE BURKETT ANEU #### [address] [address] Basophils/100 WBC (Bld) 0.8 % Normal 0.0-2.5 A [facility] ([place]) Comment on above: Performed By: #### CHARLENE PAUL ANEU #### [address] [address] Eosinophil, Absolute 0.4 10 3/mcL Normal 0.0-0.4 [facility] ([place]) Comment on above: Performed By: #### CHARLENE PAUL, ANEU #### [address] [address] Eosinophils/100 WBC (Bld) 2.8 % Normal 0.0-7.0 [facility] ([place]) Comment on above: Performed By: #### CHARLENE PAUL, ANEU #### [address] [address] Lymphocyte, Absolute 3.3 10 3/mcL Normal 0.8-3.9 [facility] ([place]) Comment on above: Performed By: #### CHARLENE PAUL, ANEU #### [address] [address] Lymphocytes/100 WBC (Bld) 22.7 % Normal 10.0-50.0 [facility] ([place]) Comment on above: Performed By: #### CHARLENE PAUL, ANEU #### [address] [address] Monocyte, Absolute 1.1 10 3/mcL High 0.2-1.0 [facility] ([place]) Comment on above: Performed By: #### CHARLENE PAUL, ANEU #### [address] [address] Monocytes/100 WBC (Bld) 7.3 % Normal 1.7-13.0 A [facility] ([place]) Comment on above: Performed By: #### CHARLENE PAUL, ANEU #### [address] [address] Neutrophils/100 WBC (Bld) 66.4 % Normal 37.0-80.0 [facility] ([place]) Comment on above: Performed By: #### CHARLENE PAUL, ANEU #### [address] [address] .NEUABSon 08-07-2023 Neutrophil, Absolute 9.7 10 3/mcL High 2.9-6.2 [facility] ([place]) Comment on above: Performed By: #### L IP, CMP, MDW, TROPHS, GFR, DIFF, MORPH, CBC #### [place] [id number] CBCon 08-07-2023 Erythrocyte distribution width (RBC) [Ratio] 13.3 % Normal 11.5-14.5 [facility] ([place]) Comment on above: Performed By: #### C CHARLENE BURKETT ANEU #### [place] [address] Hematocrit (Bld) [Volume fraction] 38.7 % Low 42.0-52.0 [facility] ([place]) Comment on above: Performed By: #### CHARLENE PAUL ANEU #### [place] [id number] Hgb 13.5 G/dL Low 14.0-18.0 [facility] ([place]) Comment on above: Performed By: #### CHARLENE PAUL ANEU #### [address] [address] MCH (RBC) [Entitic mass] 33.2 pg High 27.0-31.2 [facility] ([place]) Comment on above: Performed By: #### CHARLENE PAUL ANEU #### [place] [id number] MCHC 34.9 G/dL Normal 31.8-35.4 [facility] ([place]) Comment on above: Performed By: #### CHARLENE PAUL ANEU #### [place] [id number] MCV (RBC) [Entitic vol] 95.2 fL High 80.0-94.0 A [facility] ([place]) Comment on above: Performed By: #### CHARLENE PAUL ANEU #### [address] [address] Platelet 465 10 3/mcL High 130-400 [facility] ([place]) Comment on above: Performed By: #### C CHARLENE BURKETT ANEU #### [place] [id number] [place], [place] [address] Platelet mean volume (Bld) [Entitic vol] 7.1 fL Low 7.4-10.4 [facility] ([place]) Comment on above: Performed By: #### C CHARLENE BURKETT ANEU #### [address] [address] RBC 4.06 10 6/mcL Normal 4.04-6.13 [facility] ([place]) Comment on above: Performed By: #### C CHARLENE BURKETT ANEU #### [address] [address] WBC 14.6 10 3/mcL High 4.6-10.8 [facility] ([place]) Comment on above: Performed By: #### CHARLENE PAUL ANEU #### [address] [address] LABORATORYOrdered By: SYSTEM SYSTEM on 08-07-2023 Basophil, [...] Basophil, Absolute 0.1 10 3/mcL Normal 0.0-0.2 [facility] ([place]) Comment on above: Performed By: #### L RUSSELL, DIANA, REGINA, TROPHS, GFR, DIFF, MORPH, CBC #### [address] [address] Basophils/100 WBC (Bld) 0.3 % Normal 0.0-2.5 A [facility] ([place]) Comment on above: Performed By: #### L IP, CMP, REGINA, TROPHS, GFR, DIFF, MORPH, CBC #### [address] [address] Eosinophil, Absolute 0.0 10 3/mcL Normal 0.0-0.4 [facility] ([place]) Comment on above: Performed By: #### L IP, CMP, MDW, TROPHS, GFR, DIFF, MORPH, CBC #### [address] [address] Eosinophils/100 WBC (Bld) 0.2 % Normal 0.0-7.0 [facility] ([place]) Comment on above: Performed By: #### L IP, CMP, MDW, TROPHS, GFR, DIFF, MORPH, CBC #### [address] [address] Lymphocyte, Absolute 2.0 10 3/mcL Normal 0.8-3.9 [facility] ([place]) Comment on above: Performed By: #### L IP, CMP, MDW, TROPHS, GFR, DIFF, MORPH, CBC #### [address] [address] Lymphocytes/100 WBC (Bld) 12.8 % Normal 10.0-50.0 [facility] ([place]) Comment on above: Performed By: #### L IP, CMP, MDW, TROPHS, GFR, DIFF, MORPH, CBC #### [address] [address] Monocyte, Absolute 1.2 10 3/mcL High 0.2-1.0 [facility] ([place]) Comment on above: Performed By: #### L IP, CMP, MDW, TROPHS, GFR, DIFF, MORPH, CBC #### [address] [address] Monocytes/100 WBC (Bld) 7.5 % Normal 1.7-13.0 [facility] ([place]) Comment on above: Performed By: #### L IP, CMP, MDW, TROPHS, GFR, DIFF, MORPH, CBC #### [address] [address] Neutrophils/100 WBC (Bld) 79.2 % Normal 37.0-80.0 [facility] ([place]) Comment on above: Performed By: #### L IP, CMP, MDW, TROPHS, GFR, DIFF, MORPH, CBC #### [address] [address] .GFRon 07-29-2023 GFR 74 ml/min/1.73sqm Normal [facility] ([place]) Comment on above: Result Comment: GFR Population [...] REGINA, TROPHS, GFR, DIFF, MORPH, CBC #### [address] [address] GFR Non- 61 ml/min/1.73sqm Normal [facility] ([place]) Comment on above: Result Comment: GFR Population [...] MDW, TROPHS, GFR, DIFF, MORPH, CBC #### [address] [address] .NEUABSon 07-29-2023 Neutrophil, Absolute 12.7 10 3/mcL High 2.9-6.2 A [facility] ([place]) Comment on above: Performed By: #### L IP, CMP, MDW, TROPHS, GFR, DIFF, MORPH, CBC #### [address] [address] BMPon 07-29-2023 BUN/Creatinine Ratio 26 ratio Normal 7-27 [facility] ([place]) Comment on above: Performed By: #### L IP, CMP, MDW, TROPHS, GFR, DIFF, MORPH, CBC #### [address] [address] Calcium [Mass/Vol] 8.1 mg/dL Low 8.4-10.2 [facility] ([place]) Comment on above: Performed By: #### L IP, CMP, MDW, TROPHS, GFR, DIFF, MORPH, CBC #### [address] [address] Chloride [Moles/Vol] 107 mmol/L Normal 98-107 [facility] ([place]) Comment on above: Performed By: #### L IP, CMP, MDW, TROPHS, GFR, DIFF, MORPH, CBC #### [address] [address] CO2 [Moles/Vol] 32 mmol/L High 23-31 [facility] ([place]) Comment on above: Performed By: #### L IP, CMP, MDW, TROPHS, GFR, DIFF, MORPH, CBC #### [address] [address] Creatinine [Mass/Vol] 1.17 mg/dL Normal 0.70-1.30 [facility] ([place]) Comment on above: Performed By: #### L IP, CMP, MDW, TROPHS, GFR, DIFF, MORPH, CBC #### [address] [address] Electrolyte Balance 2.0 mEq/L Low 4.0-15.0 [facility] ([place]) Comment on above: Performed By: #### L IP, CMP, MDW, TROPHS, GFR, DIFF, MORPH, CBC #### [address] [address] Glucose [Mass/Vol] 256 mg/dL High 83-110 [facility] ([place]) Comment on above: Performed By: #### L RUSSELL, DIANA, W, TROPHS, GFR, DIFF, MORPH, CBC #### [address] [address] Potassium [Moles/Vol] 4.3 mmol/L Normal 3.5-5.1 [facility] ([place]) Comment on above: Performed By: #### L IP, DIANA, W, TROPHS, GFR, DIFF, MORPH, CBC #### [address] [address] Sodium [Moles/Vol] 141 mmol/L Normal 136-145 [facility] ([place]) Comment on above: Performed By: #### L IP, DIANA, W, TROPHS, GFR, DIFF, MORPH, CBC #### [address] [address] Urea nitrogen [Mass/Vol] 31 mg/dL High 7-18 [facility] ([place]) Comment on above: Performed By: #### L RUSSELL, DIANA, W, TROPHS, GFR, DIFF, MORPH, CBC #### [address] [address] [address] CBCon 07-29-2023 Erythrocyte distribution width (RBC) [Ratio] 13.1 % Normal 11.5-14.5 [facility] ([place]) Comment on above: Performed By: #### L RUSSELL, DIANA, REGINA, TROPHS, GFR, DIFF, MORPH, CBC #### [address] [address] Hematocrit (Bld) [Volume fraction] 39.4 % Low 42.0-52.0 [facility] ([place]) Comment on above: Performed By: #### L RUSSELL, DIANA, W, TROPHS, GFR, DIFF, MORPH, CBC #### [address] [address] Hgb 13.5 G/dL Low 14.0-18.0 [facility] ([place]) Comment on above: Performed By: #### L IP, CMP, MDW, TROPHS, GFR, DIFF, MORPH, CBC #### [address] [address] MCH (RBC) [Entitic mass] 32.5 pg High 27.0-31.2 [facility] ([place]) Comment on above: Performed By: #### L IP, CMP, MDW, TROPHS, GFR, DIFF, MORPH, CBC #### [address] [address] MCHC 34.4 G/dL Normal 31.8-35.4 [facility] ([place] Comment on above: Performed By: #### L IP, CMP, MDW, TROPHS, GFR, DIFF, MORPH, CBC #### [address] [address] MCV (RBC) [Entitic vol] 94.5 fL High 80.0-94.0 A [facility] ([place]) Comment on above: Performed By: #### L IP, CMP, MDW, TROPHS, GFR, DIFF, MORPH, CBC #### [address] [address] Platelet 223 10 3/mcL Normal 130-400 [facility] ([place]) Comment on above: Performed By: #### L IP, CMP, MDW, TROPHS, GFR, DIFF, MORPH, CBC #### [address] [address] Platelet mean volume (Bld) [Entitic vol] 8.4 fL Normal 7.4-10.4 [facility] ([place] Comment on above: Performed By: #### L IP, CMP, MDW, TROPHS, GFR, DIFF, MORPH, CBC #### [address] [address] RBC 4.17 10 6/mcL Normal 4.04-6.13 [facility] ([place] Comment on above: Performed By: #### L IP, CMP, MDW, TROPHS, GFR, DIFF, MORPH, CBC #### [address] [address] WBC 16.0 10 3/mcL High 4.6-10.8 [facility] ([place]) Comment on above: Performed By: #### L IP, DIANA, W, TROPHS, GFR, DIFF, MORPH, CBC #### [facility] [address] [place], [place] [address] FT4on 07-29-2023 Free T4 [Mass/Vol] 1.19 ng/dL Normal 0.76-1.46 [facility] ([place]) Comment on above: Performed By: #### L IP, CMP, MDW, TROPHS, GFR, DIFF, MORPH, CBC #### [facility] [address] [place], [place] [address] LABORATORYOrdered By: Donna Reyes on 07-29-2023 Blood Glucose Testing Reason Routine (07/29/23 9:53 PM) [facility] Work Phone: Glucose [Mass/Vol] 267 mg/dL High 82 - 115 mg/dL [facility] Work Phone: LABORATORYOrdered By: Jayjay Sullivan on 07-29-2023 Blood Glucose Testing Reason Routine (07/29/23 4:30 PM) [facility] Work Phone: Glucose [Mass/Vol] 126 mg/dL High 82 - 115 mg/dL [facility] Work Phone: Blood Glucose Testing Reason Routine (07/29/23 11:36 AM) [facility] Work Phone: Glucose [Mass/Vol] 200 mg/dL High 82 - 115 mg/dL [facility] Work Phone: Blood Glucose Testing Reason Routine (07/29/23 7:50 AM) [facility] Work Phone: Glucose [Mass/Vol] 247 mg/dL High 82 - 115 mg/dL [facility] Work Phone: LABORATORYOrdered By: SYSTEM SYSTEM [...] 07-29-2023 TSH Qn 0.74 m[IU]/L Normal 0.36-3.74 [facility] ([place]) Comment on above: Performed By: #### L RUSSELL, DIANA, REGINA, TROPHS, GFR, DIFF, MORPH, CBC #### [address] [address] .GFRon 07-28-2023 GFR 48 ml/min/1.73sqm Normal [facility] ([place]) Comment on above: Result Comment: GFR Population [...] REGINA, TROPHS, GFR, DIFF, MORPH, CBC #### [address] [address] GFR Non- 40 ml/min/1.73sqm Normal [facility] ([place]) Comment on above: Result Comment: GFR Population [...] MDW, TROPHS, GFR, DIFF, MORPH, CBC #### [address] [address] GFR 31 ml/min/1.73sqm Normal [facility] ([place]) Comment on above: Result Comment: GFR Population [...] MDW, TROPHS, GFR, DIFF, MORPH, CBC #### [address] [address] GFR Non- 26 ml/min/1.73sqm Normal [facility] ([place]) Comment on above: Result Comment: GFR Population [...] MDW, TROPHS, GFR, DIFF, MORPH, CBC #### [address] [address] .Manual Diffon 07-28-2023 Bands 2.0 % Normal 0.0-5.0 [facility] ([place]) Comment on above: Performed By: #### L IP, CMP, MDW, TROPHS, GFR, DIFF, MORPH, CBC #### [address] [address] Basophil %, Manual 0.0 % Normal 0.0-2.5 [facility] ([place]) Comment on above: Performed By: #### L IP, CMP, MDW, TROPHS, GFR, DIFF, MORPH, CBC #### [address] [address] Basophil, Abs Manual 0.0 10 3/mcL Normal 0.0-0.2 [facility] ([place]) Comment on above: Performed By: #### L IP, CMP, MDW, TROPHS, GFR, DIFF, MORPH, CBC #### [address] [address] Eosinophil %, Manual 0.0 % Normal 0.0-7.0 [facility] ([place] Comment on above: Performed By: #### L IP, CMP, MDW, TROPHS, GFR, DIFF, MORPH, CBC #### [address] [address] Eosinophil, Abs Manual 0.0 10 3/mcL Normal 0.0-0.4 [facility] ([place]) Comment on above: Performed By: #### L IP, CMP, MDW, TROPHS, GFR, DIFF, MORPH, CBC #### [address] [address] Lymphocyte %, Manual 12.0 % Normal 10.0-50.0 [facility] ([place] Comment on above: Performed By: #### L IP, CMP, MDW, TROPHS, GFR, DIFF, MORPH, CBC #### [address] [address] Lymphocyte, Abs Manual 3.2 10 3/mcL Normal 0.8-3.9 [facility] ([place]) Comment on above: Performed By: #### L IP, CMP, MDW, TROPHS, GFR, DIFF, MORPH, CBC #### [address] [address] Monocyte %, Manual 1.0 % Low 1.7-13.0 [facility] ([place]) Comment on above: Performed By: #### L IP, CMP, MDW, TROPHS, GFR, DIFF, MORPH, CBC #### [address] [address] Monocyte, Abs Manual 0.3 10 3/mcL Normal 0.2-1.0 [facility] ([place]) Comment on above: Performed By: #### L IP, CMP, MDW, TROPHS, GFR, DIFF, MORPH, CBC #### [address] [address] Neutrophil %, Manual 85.0 % High 37.0-80.0 [facility] ([place] Comment on above: Performed By: #### L IP, CMP, MDW, TROPHS, GFR, DIFF, MORPH, CBC #### [address] [address] Neutrophil, Abs Manual 22.9 10 3/mcL High 2.9-6.2 [facility] ([place]) Comment on above: Performed By: #### L IP, CMP, MDW, TROPHS, GFR, DIFF, MORPH, CBC #### [address] [address] Nucleated RBC 0.0 /100 WBC Normal [facility] ([place]) Comment on above: Performed By: #### L IP, CMP, MDW, TROPHS, GFR, DIFF, MORPH, CBC #### [address] [address] .Morphon 07-28-2023 Platelet Estimate Normal Normal [facility] ([place]) Comment on above: Performed By: #### L IP, CMP, MDW, TROPHS, GFR, DIFF, MORPH, CBC #### [address] [address] A1Con 07-28-2023 HbA1c (Bld) [Mass fraction] 10.2 % High 4.3-6.4 [facility] ([place]) Comment on above: Performed By: #### L IP, CMP, MDW, TROPHS, GFR, DIFF, MORPH, CBC #### [address] [address] BMPon 07-28-2023 BUN/Creatinine Ratio 32 ratio High 7-27 [facility] ([place] Comment on above: Performed By: #### L IP, CMP, MDW, TROPHS, GFR, DIFF, MORPH, CBC #### [address] [address] Chloride [Moles/Vol] 110 mmol/L High 98-107 [facility] ([place] Comment on above: Performed By: #### L IP, CMP, MDW, TROPHS, GFR, DIFF, MORPH, CBC #### [address] [address] CO2 [Moles/Vol] 22 mmol/L Low 23-31 [facility] ([place]) Comment on above: Performed By: #### L IP, CMP, MDW, TROPHS, GFR, DIFF, MORPH, CBC #### [address] [address] Creatinine [Mass/Vol] 1.70 mg/dL High 0.70-1.30 [facility] ([place]) Comment on above: Performed By: #### L IP, CMP, MDW, TROPHS, GFR, DIFF, MORPH, CBC #### [address] [address] Electrolyte Balance 12.0 mEq/L Normal 4.0-15.0 [facility] ([place]) Comment on above: Performed By: #### L IP, CMP, MDW, TROPHS, GFR, DIFF, MORPH, CBC #### [address] [address] Glucose [Mass/Vol] 78 mg/dL Low 83-110 [facility] ([place]) Comment on above: Performed By: #### L IP, CMP, MDW, TROPHS, GFR, DIFF, MORPH, CBC #### [address] [address] Potassium [Moles/Vol] 3.8 mmol/L Normal 3.5-5.1 [facility] ([place]) Comment on above: Performed By: #### L IP, CMP, MDW, TROPHS, GFR, DIFF, MORPH, CBC #### [address] [address] Sodium [Moles/Vol] 144 mmol/L Normal 136-145 [facility] ([place]) Comment on above: Performed By: #### L IP, CMP, MDW, TROPHS, GFR, DIFF, MORPH, CBC #### [place] [address] Urea nitrogen [Mass/Vol] 54 mg/dL High 7-18 [facility] ([place]) Comment on above: Performed By: #### L IP, CMP, MDW, TROPHS, GFR, DIFF, MORPH, CBC #### [place] [address] BUN/Creatinine Ratio 26 ratio Normal 7-27 [facility] ([place]) Comment on above: Order Comment: WH ILE ON INSULIN INFUSION Performed By: #### L IP, CMP, MDW, TROPHS, GFR, DIFF, MORPH, CBC #### [place] [id number] BMPOrdered By: SYSTEM SYSTEM on 07-28-2023 Calcium [Mass/Vol] 9.1 mg/dL Normal 8.4-10.2 AO ADM SS Comment on above: Performed By: #### L IP, CMP, MDW, TROPHS, GFR, DIFF, MORPH, CBC #### [place] [id number] Order Comment: WH ILE ON INSULIN INFUSION Chloride [Moles/Vol] 103 mmol/L Normal 98-107 AO A DM SS Comment on above: Order Comment: WH ILE ON INSULIN INFUSION Performed By: #### L IP, CMP, MDW, TROPHS, GFR, DIFF, MORPH, CBC #### [place] [address] CO2 [Moles/Vol] 24 mmol/L Normal 23-31 AO ADM SS Comment on above: Order Comment: WH ILE ON INSULIN INFUSION Performed By: #### L IP, CMP, MDW, TROPHS, GFR, DIFF, MORPH, CBC #### [address] [address] Creatinine [Mass/Vol] 2.48 mg/dL High 0.70-1.30 AO ADM SS Comment on above: Order Comment: WH ILE ON INSULIN INFUSION Performed By: #### L IP, CMP, MDW, TROPHS, GFR, DIFF, MORPH, CBC #### [address] [address] Electrolyte Balance 13.0 mEq/L Normal 4.0-15.0 AO AD M SS Comment on above: Order Comment: WH ILE ON INSULIN INFUSION Performed By: #### L IP, CMP, MDW, TROPHS, GFR, DIFF, MORPH, CBC #### [address] [address] Glucose [Mass/Vol] 461 mg/dL Critically abnormal 83-110 AO ADM SS Comment on above: Order Comment: WH ILE ON INSULIN INFUSION Performed By: #### L IP, CMP, MDW, TROPHS, GFR, DIFF, MORPH, CBC #### [address] [address] Potassium [Moles/Vol] 4.0 mmol/L Normal 3.5-5.1 AO ADM SS Comment on above: Order Comment: WH ILE ON INSULIN INFUSION Performed By: #### L IP, CMP, MDW, TROPHS, GFR, DIFF, MORPH, CBC #### [address] [address] Sodium [Moles/Vol] 140 mmol/L Normal 136-145 AO ADM SS Comment on above: Order Comment: WH ILE ON INSULIN INFUSION Performed By: #### L IP, CMP, MDW, TROPHS, GFR, DIFF, MORPH, CBC #### [address] [address] Urea nitrogen [Mass/Vol] 65 mg/dL High 7-18 AO ADM SS Comment on above: Order Comment: WH ILE ON INSULIN INFUSION Performed By: #### L IP, CMP, MDW, TROPHS, GFR, DIFF, MORPH, CBC #### [address] [address] CBCon 07-28-2023 Erythrocyte distribution width (RBC) [Ratio] 13.1 % Normal 11.5-14.5 [facility] ([place]) Comment on above: Performed By: #### L IP, CMP, MDW, TROPHS, GFR, DIFF, MORPH, CBC #### [address] [address] Hematocrit (Bld) [Volume fraction] 40.5 % Low 42.0-52.0 [facility] ([place]) Comment on above: Performed By: #### L IP, CMP, MDW, TROPHS, GFR, DIFF, MORPH, CBC #### [address] [address] Hgb 14.4 G/dL Normal 14.0-18.0 [facility] ([place]) Comment on above: Performed By: #### L IP, CMP, MDW, TROPHS, GFR, DIFF, MORPH, CBC #### [address] [address] MCH (RBC) [Entitic mass] 33.2 pg High 27.0-31.2 [facility] ([place]) Comment on above: Performed By: #### L IP, DIANA, MDW, TROPHS, GFR, DIFF, MORPH, CBC #### [address] [address] MCHC 35.5 G/dL High 31.8-35.4 [facility] ([place]) Comment on above: Performed By: #### L IP, CMP, MDW, TROPHS, GFR, DIFF, MORPH, CBC #### [address] [address] MCV (RBC) [Entitic vol] 93.5 fL Normal 80.0-94.0 A [facility] ([place]) Comment on above: Performed By: #### L IP, CMP, MDW, TROPHS, GFR, DIFF, MORPH, CBC #### [address] [address] Platelet 213 10 3/mcL Normal 130-400 [facility] ([place]) Comment on above: Performed By: #### L IP, CMP, MDW, TROPHS, GFR, DIFF, MORPH, CBC #### [place] [address] Platelet mean volume (Bld) [Entitic vol] 8.6 fL Normal 7.4-10.4 [facility] ([place]) Comment on above: Performed By: #### L IP, CMP, MDW, TROPHS, GFR, DIFF, MORPH, CBC #### [place] [address] RBC 4.33 10 6/mcL Normal 4.04-6.13 [facility]) Comment on above: Performed By: #### L IP, CMP, MDW, TROPHS, GFR, DIFF, MORPH, CBC #### [place] [address] WBC 26.9 10 3/mcL High 4.6-10.8 [facility] ([place]) Comment on above: Performed By: #### L IP, CMP, MDW, TROPHS, GFR, DIFF, MORPH, CBC #### [place] [address] CVFLURVon 07-28-2023 FLU A PCR Negative Normal Negative [facility] ([place] Comment on above: Performed By: #### L IP, CMP, MDW, TROPHS, GFR, DIFF, MORPH, CBC #### [address] [address] FLU B PCR Negative Normal Negative [facility] ([place]) Comment on above: Performed By: #### L IP, CMP, MDW, TROPHS, GFR, DIFF, MORPH, CBC #### [place] [address] RSV PCR Negative Normal Negative [facility] ([place]) Comment on above: Performed By: #### L IP, CMP, MDW, TROPHS, GFR, DIFF, MORPH, CBC #### [address] [address] SARS-CoV-2 (COVID-19) RNA LUCY+probe Ql (Unsp spec) Positive Abnormal Negative [facility] ([place] Comment on above: Result Comment: Resu lts [...] MDW, TROPHS, GFR, DIFF, MORPH, CBC #### [address] [address] HFPon 07-28-2023 Bili Indirect 0.3 mg/dL Normal [facility] ([place]) Comment on above: Performed By: #### L IP, CMP, MDW, TROPHS, GFR, DIFF, MORPH, CBC #### [address] [address] Albumin Level 2.9 G/dL Low 3.4-4.8 [facility] ([place]) Comment on above: Performed By: #### L IP, CMP, MDW, TROPHS, GFR, DIFF, MORPH, CBC #### [address] [address] Albumin/Globulin [Mass ratio] 1.0 {ratio} Low 1.1-2.5 [facility] ([place] Comment on above: Performed By: #### L IP, CMP, MDW, TROPHS, GFR, DIFF, MORPH, CBC #### [address] [address] ALP [Catalytic activity/Vol] 99 U/L Normal 40-135 [facility] ([place]) Comment on above: Performed By: #### L IP, CMP, MDW, TROPHS, GFR, DIFF, MORPH, CBC #### [place] [id number] ALT [Catalytic activity/Vol] 55 U/L Normal 16-63 [facility] ([place]) Comment on above: Performed By: #### L IP, CMP, MDW, TROPHS, GFR, DIFF, MORPH, CBC #### [place] [address] AST [Catalytic activity/Vol] 37 U/L Normal 10-40 [facility] ([place]) Comment on above: Performed By: #### L IP, CMP, MDW, TROPHS, GFR, DIFF, MORPH, CBC #### [place] [address] Bili Direct 0.1 mg/dL Normal 0.0-0.2 [facility] ([place]) Comment on above: Result Comment: Use of this assay is not recommended for patients undergoing treatment with eltrombopag due to the potential for falsely elevated results. Performed By: #### L IP, CMP, MDW, TROPHS, GFR, DIFF, MORPH, CBC #### [place] [address] Bili Total 0.4 mg/dL Normal 0.2-1.0 [facility] ([place]) Comment on above: Result Comment: Use of this assay is not recommended for patients undergoing treatment with eltrombopag due to the potential for falsely elevated results. Performed By: #### L IP, CMP, MDW, TROPHS, GFR, DIFF, MORPH, CBC #### [place] [address] Globulin 2.9 G/dL Normal [facility] ([place]) Comment on above: Performed By: #### L IP, CMP, MDW, TROPHS, GFR, DIFF, MORPH, CBC #### [place] [id number] [place], [place] [address] Total Protein 5.8 G/dL Low 6.4-8.2 [facility] ([place]) Comment on above: Performed By: #### L IP, CMP, MDW, TROPHS, GFR, DIFF, MORPH, CBC #### [place] [address] [address] LABORATORYOrdered By: SYSTEM SYSTEM on 07-28-2023 Calcium [...] to decrease blood sugar (07/28/23 11:44 AM) [facility] Work Phone: Blood Glucose Interventions Administered food/juice 2 (07/28/23 7:33 AM) [facility] Work Phone: Comment on above: Result [...] MDW, TROPHS, GFR, DIFF, MORPH, CBC #### [facility] [address] [place], [place] [address] Cholesterol in HDL [Mass/Vol] 46 mg/dL Normal 40-60 AO ADM SS Comment on above: Performed By: #### L IP, CMP, MDW, TROPHS, GFR, DIFF, MORPH, CBC #### [facility] [address] [place], [place] [address] Cholesterol in LDL [Mass/Vol] 47 mg/dL Normal 0-130 AO ADM SS Comment on above: Performed By: #### L IP, CMP, MDW, TROPHS, GFR, DIFF, MORPH, CBC #### [facility] [address] [place], [place] [address] Triglyceride [Mass/Vol] 83 mg/dL Normal 0-150 A [...] MDW, TROPHS, GFR, DIFF, MORPH, CBC #### [address] [address] Laboratory - Chemistry and C hemistry - [...] MDW, TROPHS, GFR, DIFF, MORPH, CBC #### [place] [id number] PHOSOrdered By: SYSTEM SYSTE M on 07-28-2023 Phosphate [Mass/Vol] 4.0 mg/dL Normal 2.3-4.1 AO A DM SS Comment on above: Order Comment: WH ILE ON INSULIN INFUSION Performed By: #### L IP, CMP, MDW, TROPHS, GFR, DIFF, MORPH, CBC #### [address] [address] PHVon 07-28-2023 pH Venous 7.30 Low 7.31-7.41 [facility] ([place]) Comment on above: Performed By: #### L IP, CMP, MDW, TROPHS, GFR, DIFF, MORPH, CBC #### [place] [id number] TSHon 07-28-2023 TSH Qn 0.43 m[IU]/L Normal 0.36-3.74 [facility] ([place]) Comment on above: Performed By: #### L IP, CMP, MDW, TROPHS, GFR, DIFF, MORPH, CBC #### [address] [address] XR CHEST 1 VIEWon 07-28-2023 XR CHEST [...] 07/28/2023 6:44:20 AM Ordering Provider: WINSOME ARRIETA [facility] ([place]) .GFRon 07-27-2023 GFR 27 ml/min/1.73sqm Normal [facility] ([place]) Comment on above: Result Comment: GFR Population [...] MDW, TROPHS, GFR, DIFF, MORPH, CBC #### [address] [address] GFR Non- 22 ml/min/1.73sqm Normal [facility] ([place]) Comment on above: Result Comment: GFR Population [...] MDW, TROPHS, GFR, DIFF, MORPH, CBC #### [address] [address] GFR 23 ml/min/1.73sqm Normal [facility] ([place]) Comment on above: Result Comment: GFR Population [...] MDW, TROPHS, GFR, DIFF, MORPH, CBC #### [address] [address] GFR Non- 19 ml/min/1.73sqm Normal [facility] ([place]) Comment on above: Result Comment: GFR Population [...] MDW, TROPHS, GFR, DIFF, MORPH, CBC #### [place] [address] .MDWon 07-27-2023 Monocyte Distribution Width 18.67 Normal 0.00-20.00 [facility] ([place] Comment on above: Result Comment: For ED adult patients suspected of sepsis, MDW<=20.0 does not rule out sepsis or risk of sepsis Performed By: #### L IP, CMP, MDW, TROPHS, GFR, DIFF, MORPH, CBC #### [place] [address] .Manual Diffon 07-27-2023 Bands 3.0 % Normal 0.0-5.0 [facility] ([place] Comment on above: Performed By: #### L IP, CMP, MDW, TROPHS, GFR, DIFF, MORPH, CBC #### [place] [address] Basophil %, Manual 0.0 % Normal 0.0-2.5 [facility] ([place]) Comment on above: Performed By: #### L IP, CMP, MDW, TROPHS, GFR, DIFF, MORPH, CBC #### [place] [address] Basophil, Abs Manual 0.0 10 3/mcL Normal 0.0-0.2 [facility] ([place]) Comment on above: Performed By: #### L IP, CMP, MDW, TROPHS, GFR, DIFF, MORPH, CBC #### [address] [address] Eosinophil %, Manual 0.0 % Normal 0.0-7.0 [facility] ([place] Comment on above: Performed By: #### L IP, CMP, MDW, TROPHS, GFR, DIFF, MORPH, CBC #### [place] [address] Eosinophil, Abs Manual 0.0 10 3/mcL Normal 0.0-0.4 [facility] ([place]) Comment on above: Performed By: #### L IP, CMP, MDW, TROPHS, GFR, DIFF, MORPH, CBC #### [address] [address] Lymphocyte %, Manual 5.0 % Low 10.0-50.0 [facility] ([place] Comment on above: Performed By: #### L IP, CMP, MDW, TROPHS, GFR, DIFF, MORPH, CBC #### [address] [address] Lymphocyte, Abs Manual 1.4 10 3/mcL Normal 0.8-3.9 [facility] ([place] Comment on above: Performed By: #### L IP, CMP, MDW, TROPHS, GFR, DIFF, MORPH, CBC #### [address] [address] Monocyte %, Manual 2.0 % Normal 1.7-13.0 [facility] ([place] Comment on above: Performed By: #### L IP, CMP, MDW, TROPHS, GFR, DIFF, MORPH, CBC #### [address] [address] Monocyte, Abs Manual 0.6 10 3/mcL Normal 0.2-1.0 [facility] ([place] Comment on above: Performed By: #### L IP, CMP, MDW, TROPHS, GFR, DIFF, MORPH, CBC #### [address] [address] Neutrophil %, Manual 90.0 % High 37.0-80.0 [facility] ([place] Comment on above: Performed By: #### L IP, CMP, MDW, TROPHS, GFR, DIFF, MORPH, CBC #### [address] [address] Neutrophil, Abs Manual 26.3 10 3/mcL High 2.9-6.2 [facility] ([place]) Comment on above: Performed By: #### L IP, CMP, MDW, TROPHS, GFR, DIFF, MORPH, CBC #### [address] [address] Nucleated RBC 0.0 /100 WBC Normal [facility] ([place]) Comment on above: Performed By: #### L IP, CMP, MDW, TROPHS, GFR, DIFF, MORPH, CBC #### [place] [id number] .Morphon 07-27-2023 Platelet Estimate Normal Normal [facility]) Comment on above: Performed By: #### L IP, CMP, MDW, TROPHS, GFR, DIFF, MORPH, CBC #### [place] [address] .Urinalysis Microscopic (AO) on 07-27-2023 UA CA Ox Crystal Trace Normal [facility] ([place] Comment on above: Performed By: #### L IP, CMP, MDW, TROPHS, GFR, DIFF, MORPH, CBC #### [place] [address] UA RBC 5-10 Abnormal None Seen [facility] ([place] Comment on above: Performed By: #### L IP, CMP, MDW, TROPHS, GFR, DIFF, MORPH, CBC #### [place] [id number] UA Squam Epithelial None Seen Normal None Seen [facility] ([place]) Comment on above: Performed By: #### L IP, CMP, MDW, TROPHS, GFR, DIFF, MORPH, CBC #### [place] [address] UA WBC 0-5 Abnormal None Seen [facility] ([place] Comment on above: Performed By: #### L IP, CMP, MDW, TROPHS, GFR, DIFF, MORPH, CBC #### [address] [address] BMPon 07-27-2023 BUN/Creatinine Ratio 22 ratio Normal 7-27 [facility] ([place] Comment on above: Performed By: #### L IP, CMP, MDW, TROPHS, GFR, DIFF, MORPH, CBC #### [place] [address] Calcium [Mass/Vol] 8.3 mg/dL Low 8.4-10.2 [facility] ([place]) Comment on above: Performed By: #### L IP, CMP, MDW, TROPHS, GFR, DIFF, MORPH, CBC #### [address] [address] Chloride [Moles/Vol] 95 mmol/L Low 98-107 [facility] ([place]) Comment on above: Performed By: #### L IP, CMP, MDW, TROPHS, GFR, DIFF, MORPH, CBC #### [address] [address] CO2 [Moles/Vol] 18 mmol/L Low 23-31 [facility] [place] ([place]) Comment on above: Performed By: #### L IP, CMP, MDW, TROPHS, GFR, DIFF, MORPH, CBC #### [address] [address] Creatinine [Mass/Vol] 2.85 mg/dL High 0.70-1.30 [facility] ([place]) Comment on above: Performed By: #### L IP, CMP, MDW, TROPHS, GFR, DIFF, MORPH, CBC #### [address] [id number] Electrolyte Balance 19.0 mEq/L High 4.0-15.0 [facility] ([place]) Comment on above: Performed By: #### L IP, CMP, MDW, TROPHS, GFR, DIFF, MORPH, CBC #### [address] [address] Glucose [Mass/Vol] 729 mg/dL Critically abnormal 83-110 [facility] ([place]) Comment on above: Performed By: #### L IP, CMP, MDW, TROPHS, GFR, DIFF, MORPH, CBC #### [address] [address] Potassium [Moles/Vol] 4.0 mmol/L Normal 3.5-5.1 [facility] ([place]) Comment on above: Performed By: #### L IP, CMP, MDW, TROPHS, GFR, DIFF, MORPH, CBC #### [address] [address] Sodium [Moles/Vol] 132 mmol/L Low 136-145 [facility] ([place]) Comment on above: Performed By: #### L IP, CMP, MDW, TROPHS, GFR, DIFF, MORPH, CBC #### [address] [address] Urea nitrogen [Mass/Vol] 64 mg/dL High 7-18 [facility] ([place]) Comment on above: Performed By: #### L IP, CMP, MDW, TROPHS, GFR, DIFF, MORPH, CBC #### [address] [address] CBCon 07-27-2023 Erythrocyte distribution width (RBC) [Ratio] 13.4 % Normal 11.5-14.5 [facility] ([place]) Comment on above: Performed By: #### L IP, CMP, MDW, TROPHS, GFR, DIFF, MORPH, CBC #### [address] [address] Hematocrit (Bld) [Volume fraction] 45.8 % Normal 42.0-52.0 [facility] ([place]) Comment on above: Performed By: #### L IP, CMP, MDW, TROPHS, GFR, DIFF, MORPH, CBC #### [address] [address] Hgb 15.2 G/dL Normal 14.0-18.0 [facility] ([place]) Comment on above: Performed By: #### L IP, CMP, MDW, TROPHS, GFR, DIFF, MORPH, CBC #### [address] [address] MCH (RBC) [Entitic mass] 32.9 pg High 27.0-31.2 [facility] ([place]) Comment on above: Performed By: #### L IP, CMP, MDW, TROPHS, GFR, DIFF, MORPH, CBC #### [address] [address] MCHC 33.2 G/dL Normal 31.8-35.4 [facility] ([place]) Comment on above: Performed By: #### L IP, CMP, MDW, TROPHS, GFR, DIFF, MORPH, CBC #### [address] [address] MCV (RBC) [Entitic vol] 98.9 fL High 80.0-94.0 A [facility] ([place]) Comment on above: Performed By: #### L IP, CMP, MDW, TROPHS, GFR, DIFF, MORPH, CBC #### [address] [address] Platelet 273 10 3/mcL Normal 130-400 [facility] ([place]) Comment on above: Performed By: #### L IP, CMP, MDW, TROPHS, GFR, DIFF, MORPH, CBC #### [address] [address] Platelet mean volume (Bld) [Entitic vol] 8.8 fL Normal 7.4-10.4 [facility] ([place]) Comment on above: Performed By: #### L IP, CMP, MDW, TROPHS, GFR, DIFF, MORPH, CBC #### [address] [address] RBC 4.64 10 6/mcL Normal 4.04-6.13 [facility] ([place]) Comment on above: Performed By: #### L IP, CMP, MDW, TROPHS, GFR, DIFF, MORPH, CBC #### [address] [address] WBC 29.2 10 3/mcL High 4.6-10.8 [facility] ([place]) Comment on above: Performed By: #### L IP, CMP, MDW, TROPHS, GFR, DIFF, MORPH, CBC #### [address] [address] CMPon 07-27-2023 Albumin Level 3.6 G/dL Normal 3.4-4.8 [facility] ([place]) Comment on above: Performed By: #### L IP, CMP, MDW, TROPHS, GFR, DIFF, MORPH, CBC #### [address] [address] Albumin/Globulin [Mass ratio] 1.0 {ratio} Low 1.1-2.5 [facility] ([place]) Comment on above: Performed By: #### L IP, CMP, MDW, TROPHS, GFR, DIFF, MORPH, CBC #### [address] [address] ALP [Catalytic activity/Vol] 137 U/L High 40-135 [facility] ([place]) Comment on above: Performed By: #### L IP, CMP, MDW, TROPHS, GFR, DIFF, MORPH, CBC #### [place] [address] ALT [Catalytic activity/Vol] 64 U/L High 16-63 [facility] ([place]) Comment on above: Performed By: #### L IP, CMP, MDW, TROPHS, GFR, DIFF, MORPH, CBC #### [place] [id number] AST [Catalytic activity/Vol] 48 U/L High 10-40 [facility] ([place]) Comment on above: Performed By: #### L IP, CMP, MDW, TROPHS, GFR, DIFF, MORPH, CBC #### [address] [address] Bili Total 0.8 mg/dL Normal 0.2-1.0 [facility] ([place]) Comment on above: Result Comment: Use of this assay is not recommended for patients undergoing treatment with eltrombopag due to the potential for falsely elevated results. Performed By: #### L IP, CMP, MDW, TROPHS, GFR, DIFF, MORPH, CBC #### [place] [id number] BUN/Creatinine Ratio 21 ratio Normal 7-27 [facility] ([place]) Comment on above: Performed By: #### L IP, CMP, MDW, TROPHS, GFR, DIFF, MORPH, CBC #### [address] [address] Calcium [Mass/Vol] 9.1 mg/dL Normal 8.4-10.2 [facility] ([place]) Comment on above: Performed By: #### L IP, CMP, MDW, TROPHS, GFR, DIFF, MORPH, CBC #### [address] [address] Chloride [Moles/Vol] 88 mmol/L Low 98-107 [facility] ([place]) Comment on above: Performed By: #### L IP, CMP, MDW, TROPHS, GFR, DIFF, MORPH, CBC #### [address] [address] CO2 [Moles/Vol] 19 mmol/L Low 23-31 [facility] ([place]) Comment on above: Performed By: #### L IP, CMP, MDW, TROPHS, GFR, DIFF, MORPH, CBC #### [address] [address] Creatinine [Mass/Vol] 3.24 mg/dL High 0.70-1.30 [facility] ([place]) Comment on above: Performed By: #### L IP, CMP, MDW, TROPHS, GFR, DIFF, MORPH, CBC #### [address] [address] Electrolyte Balance 18.0 mEq/L High 4.0-15.0 [facility] ([place]) Comment on above: Performed By: #### L IP, CMP, MDW, TROPHS, GFR, DIFF, MORPH, CBC #### [address] [address] Globulin 3.5 G/dL Normal [facility] ([place]) Comment on above: Performed By: #### L IP, CMP, MDW, TROPHS, GFR, DIFF, MORPH, CBC #### [address] [address] Glucose [Mass/Vol] mg/dL Critically abnormal 83-110 [facility] ([place]) Comment on above: Performed By: #### L IP, CMP, MDW, TROPHS, GFR, DIFF, MORPH, CBC #### [address] [address] Potassium [Moles/Vol] 5.6 mmol/L High 3.5-5.1 [facility] ([place]) Comment on above: Performed By: #### L IP, CMP, MDW, TROPHS, GFR, DIFF, MORPH, CBC #### [place] [address] [place], [place] [address] Sodium [Moles/Vol] 125 mmol/L Low 136-145 [facility] ([place]) Comment on above: Performed By: #### L IP, CMP, MDW, TROPHS, GFR, DIFF, MORPH, CBC #### [address] [address] Total Protein 7.1 G/dL Normal 6.4-8.2 [facility] ([place]) Comment on above: Performed By: #### L IP, CMP, MDW, TROPHS, GFR, DIFF, MORPH, CBC #### [address] [address] Urea nitrogen [Mass/Vol] 68 mg/dL High 7-18 [facility] ([place]) Comment on above: Performed By: #### L IP, CMP, MDW, TROPHS, GFR, DIFF, MORPH, CBC #### [address] [address] [address] ABDOMEN/PELVIS W/O CONTRA STon 07-27-2023 CT [...] 07/27/2023 11:34:46 PM Ordering Provider: YULIET Jules [facility] ([place]) LABORATORYOrdered By: Gary Long on 07-27-2023 pH [...] of Range Critical High (07/27/23 9:25 PM) [facility] Work Phone: LABORATORYOrdered By: SYSTEM SYSTEM [...] ng/L Male: 0-76 ng/L Testing performed on Psydex using a homogeneous sandwich chemiluminescent immunoassay based on [employer] technology. WBC (Bld) [#/Vol] 29.2 103/mcL High 4.6 - 10.8 10^3/mcL AO Workflow SS LIPon 07-27-2023 Lipase Level 20 U/L Normal 16-77 [facility] ([place]) Comment on above: Performed By: #### L IP, CMP, MDW, TROPHS, GFR, DIFF, MORPH, CBC #### [place] [id number] [place], [place] [address] PHVon 07-27-2023 pH Venous 7.21 Low 7.31-7.41 [facility] ([place]) Comment on above: Performed By: #### L IP, CMP, MDW, TROPHS, GFR, DIFF, MORPH, CBC #### [place] [id number] [place], [place] [address] TROPHSon 07-27-2023 High Sensitivity Troponin I 43 ng/L Normal 0-76 [facility] ([place]) Comment on above: Result Comment: High Sensitive Troponin I Reference Ranges: Female: 0-51 ng/L Male: 0-76 ng/L Testing performed on Psydex using a homogeneous sandwich chemiluminescent immunoassay based on [employer] technology. Performed By: #### L IP, DIANA, W, TROPHS, GFR, DIFF, MORPH, CBC #### [address] [address] UAon 07-27-2023 Color (U) Yellow Normal [facility] ([place]) Comment on above: Performed By: #### L IP, DIANA, W, TROPHS, GFR, DIFF, MORPH, CBC #### [address] [address] Glucose (U) [Mass/Vol] 500 mg/dL Abnormal Negative [facility] ([place]) Comment on above: Performed By: #### L RUSSELL, DIANA, REGINA, TROPHS, GFR, DIFF, MORPH, CBC #### [address] [address] Ketones Ql (U) 80 mg/dL Abnormal Negative [facility] ([place]) Comment on above: Performed By: #### L RUSSELL, DIANA, W, TROPHS, GFR, DIFF, MORPH, CBC #### [address] [address] UA Appear Clear Normal Clear [facility] ([place]) Comment on above: Performed By: #### L RUSSELL, DIANA, W, TROPHS, GFR, DIFF, MORPH, CBC #### [address] [address] UA Blood Moderate Abnormal Negative [facility] ([place]) Comment on above: Performed By: #### L RUSSELL, DIANA, W, TROPHS, GFR, DIFF, MORPH, CBC #### [address] [address] UA Leuk Est Negative Normal Negative [facility] ([place]) Comment on above: Performed By: #### L IP, DIANA, MDW, TROPHS, GFR, DIFF, MORPH, CBC #### [address] [address] UA Nitrite Negative Normal Negative [facility] ([place]) Comment on above: Performed By: #### L IP, CMP, MDW, TROPHS, GFR, DIFF, MORPH, CBC #### [address] [address] UA pH 5.5 Normal 5.0 - 8.0 [facility] ([place]) Comment on above: Performed By: #### L IP, CMP, MDW, TROPHS, GFR, DIFF, MORPH, CBC #### [address] [address] UA Protein Negative Normal Negative [facility] ([place]) Comment on above: Performed By: #### L IP, CMP, MDW, TROPHS, GFR, DIFF, MORPH, CBC #### [address] [address] UA Spec Grav 1.015 Normal 1.015-1.025 [facility] ([place]) Comment on above: Performed By: #### L IP, CMP, MDW, TROPHS, GFR, DIFF, MORPH, CBC #### [address] [address] UA Specimen Type Straight Cath Normal [facility] ([place]) Comment on above: Performed By: #### L IP, CMP, MDW, TROPHS, GFR, DIFF, MORPH, CBC #### [address] [address] UA Urobilinogen 0.2 E.U./dL Normal 0.2-1.0 [facility] ([place]) Comment on above: Performed By: #### L IP, CMP, MDW, TROPHS, GFR, DIFF, MORPH, CBC #### [address] [address] Urobilinogen (U) [Mass/Vol] Negative Normal Negative [facility] ([place]) Comment on above: Performed By: #### L IP, CMP, MDW, TROPHS, GFR, DIFF, MORPH, CBC #### [address] [address] Bilirubin Test strip Ql (U)O rdered By: Kim Hutchinson on 07-26-2023 Bilirubin Ql (U) Negative Negative [facility] Culture, urineOrdered By: Tutu Hutchinson on 07-26-2023 Bacteria identified Cx Nom (U) Enterococcus faecalis [facility] Bacteria identified Cx Nom (U) Staphylococcus aureus [facility] Bacteria identified Cx Nom (U) Positive [facility] Ketones Test strip Ql (U)Ord ered By: Kim Hutchinson on 07-26-2023 Ketones Ql (U) 50 mg/dl Negative [facility] Nitrite Test strip Ql (U)Ord ered By: Kim Hutchinson on 07-26-2023 Nitrite Ql (U) Negative Negative [facility] Protein Test strip Ql (U)Ord ered By: Kim Hutchinson on 07-26-2023 Protein Ql (U) 15 mg/dl Negative [facility] Urine blood detectionOrdered By: Kim Hutchinson on 07-26-2023 RBC Ql (U) 25 /ul Negative [facility] Urine clarityOrdered By: Da Hutchinson on 07-26-2023 Clarity (U) Clear Clear [facility] Urine color determinationOrd ered By: Kim Hutchinson on 07-26-2023 Color (U) Yellow Yellow [facility] Urine glucose detectionOrder ed By: Kim Hutchinson on 07-26-2023 Glucose Ql (U) 1000 mg/dl Normal [facility] Urine leukocyte esterase det ection by dipstickOrdered By: Kim Hutchinson on 07-26-2023 Leukocyte esterase Test strip Ql (U) 25 /ul Negative [facility] Urine pHOrdered By: Kim mahmood on 07-26-2023 pH (U) 6.0 [pH] 5.0 - 8.0 [facility] Urine specific gravity measu rementOrdered By: Kim Hutchinson on 07-26-2023 Specific gravity (U) [Rel density] 1.010 1.002-1.030 [facility] Urine urobilinogen measureme ntOrdered By: Kim Hutchinson on 07-26-2023 Urobilinogen Ql (U) Normal mg/dl Normal [facility] Basophil percentageOrdered B y: Kim Hutchinson on 06-07-2023 Bilirubin [Mass/Vol] 0.50 mg/dL 0.20-1.00 [facility] Comment on above: For patients on eltr ombopag therapy, use of Dimension Sargent TBIL is not recommended. Chloride [Moles/Vol] 112 mmol/L 98-107 [facility] Glucose [Mass/Vol] 106 mg/dL 74-106 [facility] Comment on above: Fasting Glucose resu lt from 100 to 125 mg/dL suggests IMPAIRED HOMEOSTASIS per A.D.A. criteria. Potassium [Moles/Vol] 4.2 mmol/L 3.5-5.1 [facility] Protein [Mass/Vol] 7.2 g/dL 6.4-8.2 [facility] Sodium [Moles/Vol] 141 mmol/L 136-145 [facility] Laboratory - Chemistry and C hemistry - challengeOrdered By: Kim Hutchinson on 06-07-2023 Albumin/Globulin [Mass ratio] 1.0 {ratio} 0.9-2.4 [facility] ALP [Catalytic activity/Vol] 77 U/L 45-117 [facility] ALT [Catalytic activity/Vol] 22 U/L 16-61 [facility] CO2 [Moles/Vol] 27.0 mmol/L 21.0-32.0 [facility] Globulin (S) [Mass/Vol] 3.6 g/dL 2.2-4.2 [facility] Urea nitrogen/Creatinine [Mass ratio] 19.7 mg/mg 10-20 [facility] No Panel InformationOrdered By: Kim Hutchinson on 06-07-2023 Estimated GFR (MDRD) Amer 104 mL/min >60 [facility] Comment on above: GFR Calc Estimated GFR (MDRD) Non-Af Amer 86 mL/min >60 [facility] Comment on above: Non- GFR Calc Serum or plasma calcium allen urement (mass/volume)Ordered By: Kim Hutchinson on 06-07-2023 Calcium [Mass/Vol] 8.8 mg/dL 8.5-10.1 [facility] Serum or plasma creatinine m easurement (mass/volume)Ordered By: Kim Hutchinson on 06-07-2023 Creatinine [Mass/Vol] 0.92 mg/dL 0.70-1.30 [facility] Comment on above: The validity of the calculated GFR & GFRAA in patients over 70 years has not been determined. Clinical correlation is essential. Serum or plasma thyroid stim ulating hormone (TSH) measurement (units/volume)Ordered By: Kim Hutchinson on 06-07-2023 TSH Qn 1.28 uIU/mL 0.358-3.74 [facility] Serum or plasma transthyreti n measurement (mass/volume)Ordered By: Kim Hutchinson on 06-07-2023 Prealbumin [Mass/Vol] 24.0 mg/dL 20.0-40.0 [facility] Serum or plasma urea nitroge n measurement (mass/volume)Ordered By: Kim Hutchinson on 06-07-2023 Urea nitrogen [Mass/Vol] 18 mg/dL 7-18 [facility] Thin prep Papanicolaou smear with manual screeningOrdered By: Kim Hutchinson on 06-07-2023 Thin prep Papanicolaou smear with manual screening 3.6 g/dL 3.2-5.0 [facility] Thin prep Papanicolaou smear with manual screening 12 U/L 15-37 [facility] Thin prep Papanicolaou smear with manual screening 2 5-15 [facility] Absolute lymphocyte countOrd ered By: Kim Hutchinson on 01-01-2023 Lymphocytes Auto (Unsp spec) [#/Vol] 2.17 10*3/uL 0.83-4.51 [facility] Basophil percentageOrdered B y: Kim Hutchinson on 01-01-2023 Basophils/100 WBC (Bld) 0.6 % 0-1 [facility] Bilirubin [Mass/Vol] 0.40 mg/dL 0.20-1.00 [facility] Comment on above: For patients on eltr ombopag therapy, use of Dimension Sargent TBIL is not recommended. Chloride [Moles/Vol] 110 mmol/L 98-107 [facility] Cholesterol [Mass/Vol] 132 mg/dL <200 [facility] Comment on above: <200 mg/dL Desirable 200-240 mg/dL Borderline >240 mg/dL High Risk Eosinophils/100 WBC (Bld) 2.2 % 0-5 [facility] Glucose [Mass/Vol] 96 mg/dL 74-106 [facility] Neutrophils (Bld) [#/Vol] 7.0 10*3/uL 2.0-7.7 [facility] Neutrophils/100 WBC (Bld) 69.1 % 47-70 [facility] Potassium [Moles/Vol] 4.5 mmol/L 3.5-5.1 [facility] Protein [Mass/Vol] 7.2 g/dL 6.4-8.2 [facility] Sodium [Moles/Vol] 142 mmol/L 136-145 [facility] Triglyceride [Mass/Vol] 87 mg/dL <199 [facility] Comment on above: The drugs N-Acetylcy steine and Metamizole may falsely depress this assay.Serum Triglycerides Reference Interval Normal <150 mg/dL Borderline high 150 - 199 mg/dL High 200 - 499 mg/dL Very High > or = 500 mg/dL WBC (Bld) [#/Vol] 10.1 10*3/uL 4.4-11.0 [facility] Blood erythrocytes count (nu mber/volume)Ordered By: Kim Hutchinson on 01-01-2023 RBC (Bld) [#/Vol] 4.67 10*6/uL 4.6-6.2 [facility] Blood hemoglobin measurement (mass/volume)Ordered By: Kim Hutchinson on 01-01-2023 Hemoglobin (Bld) [Mass/Vol] 15.5 g/dL 13.0-16.5 [facility] Blood lymphocytes/100 leukoc ytesOrdered By: Kim Hutchinson on 01-01-2023 Lymphocytes/100 WBC (Bld) 21.6 % 19-41 [facility] Blood monocytes/100 leukocyt esOrdered By: Kim Hutchinson on 01-01-2023 Monocytes/100 WBC (Bld) 6.2 % 0-10 [facility] Blood platelet mean volumeOr dered By: Kim Hutchinson on 01-01-2023 Platelet mean volume (Bld) [Entitic vol] 10.2 fL 6.2-12.0 [facility] Determination of erythrocyte mean corpuscular volume (MCV)Ordered By: Kim Hutchinson on 01-01-2023 MCV (RBC) [Entitic vol] 98.1 fL 80-94 [facility] Hematocrit Auto (Bld) [Volum e fraction]Ordered By: Kim Hutchinson on 01-01-2023 Hematocrit (Bld) [Volume fraction] 45.8 % 40-54 [facility] Laboratory - Chemistry and C hemistry - challengeOrdered By: [facility] on 01-01-2023 ALP [Catalytic activity/Vol] 77 U/L 45-117 [facility] ALT [Catalytic activity/Vol] 24 U/L 16-61 [facility] CO2 [Moles/Vol] 27.0 mmol/L 21.0-32.0 [facility] Cobalamin (Vitamin B12) [Mass/Vol] 351 pg/mL 211-911 [facility] Globulin (S) [Mass/Vol] 3.7 g/dL 2.2-4.2 [facility] Urea nitrogen/Creatinine [Mass ratio] 18.9 mg/mg 10-20 [facility] Laboratory - Hematology and Cell countsOrdered By: Kim Hutchinson on 01-01-2023 Erythrocyte distribution width (RBC) [Entitic vol] 48.8 fL 35.1-43.9 [facility] Erythrocyte distribution width (RBC) [Ratio] 13.3 % 11.6-14.6 [facility] Immature granulocytes/100 WBC (Bld) 0.300 % 0.0-0.9 [facility] Comment on above: IG% - Immature Granu locytes (promyelocytes, myelocytes and metamyelocytes) > 1% indicates that a LEFT SHIFT is Present. MCH (RBC) [Entitic mass] 33.2 pg 27.0-32.0 [facility] Nucleated RBC/100 WBC (Bld) [Ratio] 0 % 0-5 [facility] MCHC Auto (RBC) [Mass/Vol]Or dered By: Kim Hutchinson on 09-19-2023 MCHC (RBC) [Mass/Vol] 33.8 g/dL 32-36 [facility] No Panel InformationOrdered By: Kim Hutchinson on 01-01-2023 Estimated GFR (MDRD) Amer 100 mL/min >60 [facility] Comment on above: GFR Calc Estimated GFR (MDRD) Non-Af Amer 82 mL/min >60 [facility] Comment on above: Non- GFR Calc Prostate Specific Antigen Screen 1.53 ng/mL 0.00-4.00 [facility] Comment on above: This test was perfor med using the TPSA assay method for [employer] chemistry system. Values obtained with differentassay methods cannot be used interchangably.When changing PSA assays in the course of monitoring apatient, additional sequential testing should be carriedout to confirm baseline values. Thyroid Stimulating Hormone (TSH) 1.50 uIU/mL 0.358-3.74 [facility] Platelets bldOrdered By: Da Hutchinson on 01-01-2023 Platelets (Bld) [#/Vol] 253 10*3/uL 150-450 [facility] Serum or plasma albumin allen urement (mass/volume)Ordered By: Kim Hutchinson on 01-01-2023 Albumin [Mass/Vol] 3.5 g/dL 3.2-5.0 [facility] Serum or plasma albumin/glob ulin mass ratioOrdered By: Kim Hutchinson on 01-01-2023 Albumin/Globulin [Mass ratio] 0.9 {ratio} 0.9-2.4 [facility] Serum or plasma calcium allen urement (mass/volume)Ordered By: Kim Hutchinson on 01-01-2023 Calcium [Mass/Vol] 8.9 mg/dL 8.5-10.1 [facility] Serum or plasma cholesterol in HDL measurement (mass/volume)Ordered By: Kim Hutchinson on 01-01-2023 Cholesterol in HDL [Mass/Vol] 36 mg/dL >40 [facility] Comment on above: The drugs N-Acetylcy steine and Metamizole may falsely depress this assay. Reference Range HDL <40 mg/dL Low HDL Cholesterol HDL >or= 60 mg/dL High HDL Cholesterol Serum or plasma cholesterol in VLDL measurement (mass/volume)Ordered By: Kim Hutchinson on 01-01-2023 Cholesterol in VLDL [Mass/Vol] 17 mg/dL 5-40 [facility] Serum or plasma creatinine m easurement (mass/volume)Ordered By: Kim Hutchinson on 01-01-2023 Creatinine [Mass/Vol] 0.95 mg/dL 0.70-1.30 [facility] Comment on above: The validity of the calculated GFR & GFRAA in patients over 70 years has not been determined. Clinical correlation is essential. Serum or plasma low density lipoprotein (LDL) cholesterol measurement (mass/volume)Ordered By: [place] Evangelina on 01-01-2023 Cholesterol in LDL [Mass/Vol] 79 mg/dL 0-130 [facility] Serum or plasma urea nitroge n measurement (mass/volume)Ordered By: [facility] on 01-01-2023 Urea nitrogen [Mass/Vol] 18 mg/dL 7-18 [facility] Thin prep Papanicolaou smear with manual screeningOrdered By: Kim Evangelina on 01-01-2023 Thin prep Papanicolaou smear with manual screening 15 U/L 15-37 [facility] Thin prep Papanicolaou smear with manual screening 5 5-15 [facility] No Panel Informationon 01-16 Prostate Specific Antigen Screen 1.40 ng/mL 0.00-4.00 [facility] Work Phone: Comment on above: This test was perfor med using the TPSA assay method for the[facility] chemistry system. Values obtained with differentassay methods cannot be used interchangably.When changing PSA assays in the course of monitoring apatient, additional sequential testing should be carriedout to confirm baseline values. Absolute lymphocyte counton 12-26-2021 Lymphocytes Auto (Unsp spec) [#/Vol] 1.91 10*3/uL 0.83-4.51 [facility] Work Phone: Basophil percentageon 2021 Basophils/100 WBC (Bld) 0.7 % 0-1 [facility] Work Phone: Bilirubin [Mass/Vol] 0.60 mg/dL 0.20-1.00 [facility] Work Phone: Comment on above: For patients on eltr ombopag therapy, use of Dimension Sargent TBIL is not recommended. Chloride [Moles/Vol] 109 mmol/L 98-107 [facility] Work Phone: Eosinophils/100 WBC (Bld) 3.9 % 0-5 [facility] Work Phone: [phone] Glucose [Mass/Vol] 98 mg/dL 74-106 [facility] Work Phone: Neutrophils (Bld) [#/Vol] 5.9 10*3/uL 2.0-7.7 [facility] Work Phone: Neutrophils/100 WBC (Bld) 67.1 % 47-70 [facility] Work Phone: Potassium [Moles/Vol] 4.3 mmol/L 3.5-5.1 [facility] Work Phone: Protein [Mass/Vol] 7.3 g/dL 6.4-8.2 [facility] Work Phone: Sodium [Moles/Vol] 143 mmol/L 136-145 [facility] Work Phone: WBC (Bld) [#/Vol] 8.8 10*3/uL 4.4-11.0 [facility] Work Phone: Bilirubin Test strip Ql (U)o n 12-26-2021 Bilirubin Ql (U) Negative Negative [facility] Work Phone: Blood erythrocytes count (nu mber/volume)on 12-26-2021 RBC (Bld) [#/Vol] 4.50 10*6/uL 4.6-6.2 [facility] Work Phone: Blood hemoglobin measurement (mass/volume)on 12-26-2021 Hemoglobin (Bld) [Mass/Vol] 14.6 g/dL 13.0-16.5 [facility] Work Phone: Blood lymphocytes/100 leukoc yteson 12-26-2021 Lymphocytes/100 WBC (Bld) 21.7 % 19-41 [facility] Work Phone: Blood monocytes/100 leukocyt eson 12-26-2021 Monocytes/100 WBC (Bld) 6.1 % 0-10 [facility] Work Phone: Blood platelet mean volumeon 12-26-2021 Platelet mean volume (Bld) [Entitic vol] 10.1 fL 6.2-12.0 [facility] Work Phone: Determination of erythrocyte mean corpuscular volume (MCV)on 12-26-2021 MCV (RBC) [Entitic vol] 96.4 fL 80-94 [facility] Work Phone: Hematocrit Auto (Bld) [Volum e fraction]on 12-26-2021 Hematocrit (Bld) [Volume fraction] 43.4 % 40-54 [facility] Work Phone: Ketones Test strip Ql (U)on 12-26-2021 Ketones Ql (U) Negative Negative [facility] Work Phone: [phone] Laboratory - Chemistry and C hemistry - challengeon 12-26-2021 ALP [Catalytic activity/Vol] 84 U/L 45-117 [facility] Work Phone: [phone] ALT [Catalytic activity/Vol] 20 U/L 16-61 [facility] Work Phone: [phone] CO2 [Moles/Vol] 29.0 mmol/L 21.0-32.0 [facility] Work Phone: Cobalamin (Vitamin B12) [Mass/Vol] 414 pg/mL 211-911 [facility] Work Phone: Globulin (S) [Mass/Vol] 3.8 g/dL 2.2-4.2 [facility] Work Phone: [phone] Urea nitrogen/Creatinine [Mass ratio] 15.1 mg/mg 10-20 [facility] Work Phone: Laboratory - Hematology and Cell countson 12-26-2021 Erythrocyte distribution width (RBC) [Entitic vol] 47.6 fL 35.1-43.9 [facility] Work Phone: [phone] Erythrocyte distribution width (RBC) [Ratio] 13.4 % 11.6-14.6 [facility] Work Phone: [phone] Immature granulocytes/100 WBC (Bld) 0.500 % 0.0-0.9 [facility] Work Phone: [phone] Comment on above: IG% - Immature Granu locytes (promyelocytes, myelocytes and metamyelocytes) > 1% indicates that a LEFT SHIFT is Present. MCH (RBC) [Entitic mass] 32.4 pg 27.0-32.0 [facility] Work Phone: [phone] Nucleated RBC/100 WBC (Bld) [Ratio] 0 % 0-5 [facility] Work Phone: [phone] MCHC Auto (RBC) [Mass/Vol]on 12-26-2021 MCHC (RBC) [Mass/Vol] 33.6 g/dL 32-36 [facility] Work Phone: [phone] Nitrite Test strip Ql (U)on 12-26-2021 Nitrite Ql (U) Negative Negative [facility] Work Phone: No Panel Informationon 12-26 Estimated GFR (MDRD) Amer 103 mL/min >60 [facility] Work Phone: Comment on above: GFR Calc Estimated GFR (MDRD) Non-Af Amer 85 mL/min >60 [facility] Work Phone: Comment on above: Non- GFR Calc Thyroid Stimulating Hormone (TSH) 1.92 uIU/mL 0.358-3.74 [facility] Work Phone: Platelets bldon 12-26-2021 Platelets (Bld) [#/Vol] 264 10*3/uL 150-450 [facility] Work Phone: [phone] Protein Test strip Ql (U)on 12-26-2021 Protein Ql (U) 15 mg/dl Negative [facility] Work Phone: Serum or plasma albumin allen urement (mass/volume)on 12-26-2021 Albumin [Mass/Vol] 3.5 g/dL 3.2-5.0 [facility] Work Phone: Serum or plasma albumin/glob ulin mass ratioon 12-26-2021 Albumin/Globulin [Mass ratio] 0.9 {ratio} 0.9-2.4 [facility] Work Phone: [phone] Serum or plasma calcium allen urement (mass/volume)on 12-26-2021 Calcium [Mass/Vol] 8.8 mg/dL 8.5-10.1 [facility] Work Phone: Serum or plasma creatinine m easurement (mass/volume)on 12-26-2021 Creatinine [Mass/Vol] 0.93 mg/dL 0.70-1.30 [facility] Work Phone: Comment on above: The validity of the calculated GFR & GFRAA in patients over 70 years has not been determined. Clinical correlation is essential. Serum or plasma urea nitroge n measurement (mass/volume)on 12-26-2021 Urea nitrogen [Mass/Vol] 14 mg/dL 7-18 [facility] Work Phone: Thin prep Papanicolaou smear with manual screeningon 12-26-2021 Thin prep Papanicolaou smear with manual screening 13 U/L 15-37 [facility] Work Phone: Thin prep Papanicolaou smear with manual screening 5 5-15 [facility] Work Phone: Urine blood detectionon 12-14 RBC Ql (U) Negative Negative [facility] Work Phone: [phone] Urine clarityon 12-26-2021 Clarity (U) Sl. Cloudy Clear [facility] Work Phone: [phone] Urine color determinationon 12-26-2021 Color (U) Yellow Yellow [facility] Work Phone: Urine glucose detectionon Glucose Ql (U) Normal mg/dl Normal [facility] Work Phone: Urine leukocyte esterase det ection by dipstickon 12-26-2021 Leukocyte esterase Test strip Ql (U) 25 /ul Negative [facility] Work Phone: Urine pHon 12-26-2021 pH (U) 6.0 [pH] 5.0 - 8.0 [facility] Work Phone: Urine specific gravity measu rementon 12-26-2021 Specific gravity (U) [Rel density] 1.020 1.002-1.030 [facility] Work Phone: Urobilinogen Auto test strip Ql (U)on 12-26-2021 Urobilinogen Ql (U) Normal mg/dl Normal [facility] Work Phone: LABORATORYOrdered By: Timothy Parra [...] EVALon 021 ANES POSTPROC EVAL HNO ID: [id number] Author: Alfonso Khan MD Service: Anesthesiology Author Type: Anesthesiologist Type: Anesthesia Postprocedure Evaluation Filed: 03/17/2021 12:47 PM Note Text: POST ANESTHESIA EVALUATION NOTE : 1950 Procedure Summary Date: 03/17/21 Room / Location: [place] [address] / [facility] Anesthesia Start: 1143 Anesthesia Stop: 1220 Procedure: [...] Other Remarks: Patient will go back to correction with his caregiver.. Anesthesia Observations No Documentation SIGNATURE: Alfonso Khan MD PATIENT NAME: Renny Russo DATE: March 17, 2021 TIME: 12:45 PM CSN: [id number] [facility] ANES PRE-OPon 03-17-2021 ANES PRE-OP HNO ID: [id number] Author: Alfonso Khan MD Service: Anesthesiology Author [...] ophthalmic ointment 1 application once daily. - [id number] METH 3.5 MG/ML-10,000 UNIT/ML-0.1% EYE DROPS 1 [...] March 17, 2021 TIME: 11:10 AM CSN: [id number] [facility] NURSING PROGon 03-17-2021 NURSING PROG HNO ID: [id number] Author: Tamara Ruby RN Service: Ophthalmology Author Type: Registered Nurse Type: Nursing Progress Note Filed: 03/17/2021 11:23 AM Note Text: Caregiver from correction Junie remains at bedside to assist patient with communication and medical history questions. [facility] OPERATIVE NOon 03-17-2021 OPERATIVE NO HNO ID: [id number] Author: Eduard Verde MD Service: Ophthalmology Author Type: Physician Type: Operative Report Filed: 03/17/2021 12:18 PM Note Text: OPERATIVE/PROCEDURE REPORT OPHTHAMOLOGY LOG ID: [id number] Surgery/Procedure Date: 03/17/2021 Incision/Procedure Start Time: 11:52 AM Incision Close/Procedure End Time: 12:17 PM Surgeon(s)/Proceduralis t(s) and Rn Birthing(s): Surgeon(s) and Role: * Eduard Verde MD [...] 17, 2021 TIME: 12:17 PM PAGER/CONTACT #: [facility] 12-22-2019 [facility] Office Visit (HAYLIE ) RENNY RUSSO ([id number]) 1950 M Date Time Provider Department 12/22/19 [...] Age: [age] year old Sex: male MRN/E# [id number] Last Office Visit: 12/17/2018 DIAGNOSIS: Parafalcine meningioma [...] in mental status. He resides in a correction. At his office visit on 12/17/2018, his [...] MD This note was partially generated using Meta voice recognition system, and there may be some incorrect words, spellings, and punctuation that were not noted in checking the note before saving. Referring Provider: MATTHEW FULLER [[id number]] Allergies As of Date: 12/22/2019 (No Known [...] Status:Closed by MATTHEW FULLER on 12/22/19 Normal [facility] CT BRAIN WO/W IVCONon 2019 CT [...] base and imaged soft tissues are unremarkable. Benefits Coordinator (topogram) images: No additional findings. IMPRESSION: 1. Stable 10 mm partly calcified meningioma left anterior parafalcine with mild mass effect on the left superior frontal gyrus, unchanged. 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 Resource Room Teacher: BRIT Transcribe Date/Time: Dec 22 2019 12:47P Dictated by : JHONY RAPP MD This examination was interpreted and the report reviewed and electronically signed by: JHONY RAPP MD on Dec 22 2019 1:00PM EST Normal [facility] PROGRESSon 12-22-2019 PROGRESS HNO ID: [id number] Author: Matthew Fuller Service: ? Author Type: Physician Type: Progress Notes Filed: 12/22/2019 12:07 PM Note Text: NEUROSURGERY FOLLOW UP OFFICE NOTE Matthew Fuller MD Date of visit: December 22, 2019 Patient Name: Mr.Charles Russo Date of : 1950 Current Age: [age] year old Sex: male MRN/E# [id number] Last Office Visit: 12/17/2018 DIAGNOSIS: Parafalcine meningioma [...] in mental status. He resides in a correction. At his office visit on 12/17/2018, his [...] MD This note was partially generated using Meta voice recognition system, and there may be some incorrect words, spellings, and punctuation that were not noted in checking the note before saving. Normal [facility] Culture, urine Bacteria identified Cx Nom (U) Positive [facility] Work Phone: Vital Signs Date Time Vital Sign Value Performing Clinician Facility 07-13-2024 12:49-0400 Body temperature 97.7 [degF] Dr. Kim Hutchinson MD Work Phone: [facility] 07-13-2024 12:49-0400 Diastolic blood pressure 78 mm[Hg] Dr. Kim Hutchinson MD Work Phone: [facility] 07-13-2024 12:49-0400 Heart rate 71 /min Dr. Kim Hutchinson MD Work Phone: [facility] 07-13-2024 12:49-0400 Respiratory rate 18 /min Dr. Kim Hutchinson MD Work Phone: [facility] 07-13-2024 12:49-0400 SaO2% (BldA) [Mass fraction] 96 % Dr. Kim Hutchinson MD Work Phone: [facility] 07-13-2024 12:49-0400 Systolic blood pressure 120 mm[Hg] Dr. Kim Hutchinson MD Work Phone: [facility] 06-07-2024 14:00-0500 Diastolic Blood Pressure Non-Invasive 96 mm[Hg] DR SAMIA MICHEL MD [facility] 06-07-2024 14:00-0500 Heart rate 67 /min DR SAMIA MICHEL MD [facility] 06-07-2024 14:00-0500 Respiratory rate 16 /min DR SAMIA MICHEL MD [facility] 06-07-2024 14:00-0500 Systolic Blood Pressure Non-Invasive 118 mm[Hg] DR SAMIA MICHEL MD [facility] 06-07-2024 13:26-0500 Heart rate 73 /min DR SAMIA MICHEL MD [facility] 06-07-2024 13:26-0500 Respiratory rate 22 /min DR SAMIA MICHEL MD [facility] 06-07-2024 13:00-0500 Diastolic Blood Pressure Non-Invasive 70 mm[Hg] DR SAMIA MICHEL MD [facility] 06-07-2024 13:00-0500 Heart rate 74 /min DR SAMIA MICHEL MD [facility] 06-07-2024 12:43-0500 Blood Pressure Cuff Size DR SAMIA MICHEL MD [facility] 06-07-2024 12:43-[address] SAMIA MICHEL MD [facility] 06-07-2024 12:43-[address] SAMIA MICHEL MD [facility] 06-07-2024 12:43-0500 Body temperature 97.88 [degF] DR SAMIA MICHEL MD [facility] 06-07-2024 12:43-0500 Diastolic Blood Pressure Non-Invasive 84 mm[Hg] DR SAMIA MICHEL MD [facility] 06-07-2024 12:43-0500 Heart rate 73 /min DR SAMIA MICHEL MD [facility] 06-07-2024 12:43-0500 Systolic Blood Pressure Non-Invasive 134 mm[Hg] DR SAMIA MICHEL MD [facility] 05-26-2024 15:21-0500 Body temperature 97.5 [degF] Dr. Kim Hutchinson MD Work Phone: [facility] 05-26-2024 15:21-0500 Diastolic blood pressure 70 mm[Hg] Dr. Kim Hutchinson MD Work Phone: [facility] 05-26-2024 15:21-0500 Heart rate 71 /min Dr. Kim Hutchinson MD Work Phone: [facility] 05-26-2024 15:21-0500 Respiratory rate 12 /min Dr. Kim Hutchinson MD Work Phone: [facility] 05-26-2024 15:21-0500 SaO2% (BldA) [Mass fraction] 97 % Dr. Kim Hutchinson MD Work Phone: [facility] 05-26-2024 15:21-0500 Systolic blood pressure 116 mm[Hg] Dr. Kim Hutchinson MD Work Phone: [facility] 2024 21:43-0500 Heart rate 67 /min DR YULIET TREVINO DO [facility] 2024 21:43-0500 Respiratory rate 18 /min DR YULIET TREVINO DO [facility] 2024 17:34-0500 Body temperature 98.24 [degF] DR YULIET TREVINO DO [facility] 2024 17:34-0500 Heart rate 74 /min DR YULIET TREVINO DO [facility] 2024 17:34-0500 Respiratory rate 16 /min DR YULIET TREVINO DO [facility] 04-06-2024 12:19-0500 Blood Pressure Location AGUSTIN ACEVES DO [facility] 04-06-2024 12:19-0500 Blood Pressure Method AGUSTIN ACEVES DO [facility] 04-06-2024 12:19-0500 Body temperature 98.06 [degF] AGUSTIN ACEVES DO [facility] 04-06-2024 12:19-0500 Diastolic Blood Pressure Non-Invasive 62 mm[Hg] AGUSTIN ACEVES DO [facility] 04-06-2024 12:19-0500 Heart rate 86 /min AGUSTIN ACEVES DO [facility] 04-06-2024 12:19-0500 Respiratory rate 18 /min AGUSTIN ACEVES DO [facility] 04-06-2024 12:19-0500 Systolic Blood Pressure Non-Invasive 123 mm[Hg] AGUSTIN ACEVES DO [facility] 02-06-2024 11:21-0400 Body mass index (BMI) [Ratio] 22.43 kg/m2 Jumana Soliz SHADE HANGER.HOME HEALTH CLINICIAN Work Phone: [facility] 02-06-2024 11:21-0400 Body weight 77.1 kg Jumana Soliz SHADE HANGER.HOME HEALTH CLINICIAN Work Phone: [facility] 02-06-2024 11:21-0400 Respiratory rate 16 /min Jumana Soliz APRN.HOME HEALTH CLINICIAN Work Phone: [facility] 09-24-2023 11:30-0400 Body temperature 98.24 [degF] SEBAS HARDY MD [facility] 09-24-2023 11:30-0400 Diastolic Blood Pressure Non-Invasive 84 mm[Hg] SEBAS HARDY MD [facility] 09-24-2023 11:30-0400 Heart rate 61 /min SEBAS HARDY MD [facility] 09-24-2023 11:30-0400 Respiratory rate 19 /min SEBAS HARDY MD [facility] 09-24-2023 11:30-0400 Systolic Blood Pressure Non-Invasive 132 mm[Hg] SEBAS HARDY MD [facility] 08-09-2023 18:37-0400 Body mass index (BMI) [Ratio] 20.85 kg/m2 Amilcar Veronica MD Work Phone: [facility] 08-09-2023 18:37-0400 Body temperature 98.2 [degF] Amilcar Veronica MD Work Phone: [facility] 08-09-2023 18:37-0400 Body weight 71.7 kg Amilcar Veronica MD Work Phone: [facility] 08-09-2023 18:37-0400 Diastolic blood pressure 78 mm[Hg] Amilcar Veronica MD Work Phone: [facility] 08-09-2023 18:37-0400 Heart rate 66 /min Amilcar Veronica MD Work Phone: [facility] 08-09-2023 18:37-0400 Respiratory rate 16 /min Amilcar Veronica MD Work Phone: [facility] 08-09-2023 18:37-0400 SaO2% (BldA) [Mass fraction] 98 % Amilcar Veronica MD Work Phone: [facility] 08-09-2023 18:37-0400 Systolic blood pressure 130 mm[Hg] Amilcar Veronica MD Work Phone: [facility] 07-29-2023 21:33-[address] SAMIA MICHEL MD [facility] 07-29-2023 21:33-[address] SAMIA MICHEL MD [facility] 07-29-2023 21:33-0400 Body temperature 99.5 [degF] DR SAMIA MICHEL MD [facility] 07-29-2023 21:33-0400 Body weight 77.[address] SAMIA MICHEL MD [facility] 07-29-2023 21:33-0400 Diastolic Blood Pressure Non-Invasive 68 mm[Hg] DR SAMIA MICHEL MD [facility] 07-29-2023 21:33-0400 Heart rate 70 /min DR SAMIA MICHEL MD [facility] 07-29-2023 21:33-0400 Respiratory rate 16 /min DR SAMIA MICHEL MD [facility] 07-29-2023 21:33-0400 Systolic Blood Pressure Non-Invasive 125 mm[Hg] DR SAMIA MICHEL MD [facility] 07-29-2023 16:28-0400 Heart rate 54 /min JULY [place] [employer] SHADE HANGER-HOME HEALTH CLINICIAN [facility] 07-29-2023 15:45-0400 Body temperature 97.34 [degF] JULY [place] [employer] SH[employer] HANGER-HOME HEALTH CLINICIAN [facility] 07-29-2023 15:45-0400 Diastolic Blood Pressure Non-Invasive 77 mm[Hg] JULY [place] [employer] SH[employer] HANGER-HOME HEALTH CLINICIAN [facility] 07-29-2023 15:45-0400 Heart rate 55 /min JULY [place] [employer] SH[employer] HANGER-HOME HEALTH CLINICIAN [facility] 07-29-2023 15:45-0400 Reason For Taking VItal Signs JULY [place] [employer] SH[employer] HANGER-HOME HEALTH CLINICIAN [facility] 07-29-2023 15:45-0400 Respiratory rate 16 /min JULY [place] [employer] SH[employer] HANGER-HOME HEALTH CLINICIAN [facility] 07-29-2023 15:45-0400 Systolic Blood Pressure Non-Invasive 124 mm[Hg] JULY [place] [employer] SH[employer] HANGER-HOME HEALTH CLINICIAN [facility] 07-29-2023 10:59-0400 Body temperature 97.52 [degF] JULY [place] [employer] SH[employer] HANGER-HOME HEALTH CLINICIAN [facility] 07-29-2023 10:59-0400 Diastolic Blood Pressure Non-Invasive 66 mm[Hg] JULY [place] [employer] SH[employer] HANGER-HOME HEALTH CLINICIAN [facility] 07-29-2023 10:59-0400 Heart rate 68 /min JULY [place] [employer] SH[employer] HANGER-HOME HEALTH CLINICIAN [facility] 07-29-2023 10:59-0400 Reason For Taking VItal Signs JULY [place] [employer] SH[employer] HANGER-HOME HEALTH CLINICIAN [facility] 07-29-2023 10:59-0400 Respiratory rate 16 /min JULY [place] [employer] SH[employer] HANGER-HOME HEALTH CLINICIAN [facility] 07-29-2023 10:59-0400 Systolic Blood Pressure Non-Invasive 98 mm[Hg] JULY [place] [employer] HANGER-HOME HEALTH CLINICIAN [facility] 07-29-2023 08:01-0400 Heart rate 69 /min JULY [place] [employer] HANGER-HOME HEALTH CLINICIAN [facility] 07-29-2023 07:23-0400 Body temperature 98.24 [degF] JULY [place] [employer] HANGER-HOME HEALTH CLINICIAN [facility] 07-29-2023 07:23-0400 Diastolic Blood Pressure Non-Invasive 83 mm[Hg] JULY [place] [employer] HANGER-HOME HEALTH CLINICIAN [facility] 07-29-2023 07:23-0400 Reason For Taking VItal Signs JULY [place] [employer] HANGER-HOME HEALTH CLINICIAN [facility] 07-29-2023 07:23-0400 Respiratory rate 16 /min JULY [place] [employer] HANGER-HOME HEALTH CLINICIAN [facility] 07-29-2023 07:23-0400 Systolic Blood Pressure Non-Invasive 126 mm[Hg] JULY [place] [employer] HANGER-HOME HEALTH CLINICIAN [facility] 07-28-2023 17:25-0400 Mean blood pressure 80 mm[Hg] JULY [place] [employer] HANGER-HOME HEALTH CLINICIAN [facility] 07-28-2023 17:10-0400 Heart rate 109 /min JULY [place] [employer] HANGER-HOME HEALTH CLINICIAN [facility] 07-28-2023 15:02-0400 Mean blood pressure 86 mm[Hg] JULY [place] [employer] HANGER-HOME HEALTH CLINICIAN [facility] 07-28-2023 11:52-0400 Mean blood pressure 88 mm[Hg] JULY [place] [employer] HANGER-HOME HEALTH CLINICIAN [facility] 07-28-2023 10:51-0400 Heart rate 129 /min JULY [place] [employer] HANGER-HOME HEALTH CLINICIAN [facility] 07-28-2023 06:00-0400 Heart rate 113 /min JULY [place] [employer] HANGER-HOME HEALTH CLINICIAN [facility] 07-28-2023 05:00-0400 Heart rate 124 /min JULY [place] [employer] HANGER-HOME HEALTH CLINICIAN [facility] 07-28-2023 04:00-0400 Heart rate 122 /min JULY [place] [employer] H[employer]ER-HOME HEALTH CLINICIAN [facility] 07-28-2023 01:57-0400 Body height 182.9 cm JULY BERNY SHADE HANGER-HOME HEALTH CLINICIAN [facility] 07-28-2023 01:57-0400 Body weight 70.5 kg JULY [place] [employer] HANGER-HOME HEALTH CLINICIAN [facility] 07-28-2023 01:57-0400 Body weight 21.07 kg/m2 JULY [place] [employer] HANGER-HOME HEALTH CLINICIAN [facility] 07-28-2023 01:53-0400 Body temperature 98.6 [degF] JULY [place] [employer] HANGER-HOME HEALTH CLINICIAN [facility] 07-27-2023 23:43-0400 Body weight 70.5 kg JULY [place] [employer] SH[employer] HANGER-HOME HEALTH CLINICIAN [facility] 07-27-2023 23:40-0400 Body temperature 98.6 [degF] JULY [place] [employer] SH[employer] HANGER-HOME HEALTH CLINICIAN [facility] 07-27-2023 19:52-0400 Body temperature 98.78 [degF] JULY [place] [employer] SH[employer] HANGER-HOME HEALTH CLINICIAN [facility] 03-06-2022 08:35-0500 Body weight 75.89 kg Garth Moreno MD Work Phone: [facility] 03-06-2022 08:35-0500 Diastolic blood pressure 69 mm[Hg] Garth Moreno MD Work Phone: [facility] 03-06-2022 08:35-0500 Heart rate 82 /min Garth Moreno MD Work Phone: [facility] 03-06-2022 08:35-0500 Systolic blood pressure 109 mm[Hg] Garth Moreno MD Work Phone: [facility] Encounters Encounter Date Encounter Type Care Provider Facility Start: 11-14-2024 End: 11-14-2024 Emergency department patient visit MIKE KIANNA PIMENTEL [facility] Start: 10-30-2024 End: 10-30-[address] Kim Hutchinson MD Work Phone: [facility] Start: 10-30-2024 End: 10-30-[address] Becky Sun MD [facility] Work Phone: Start: 10-30-2024 End: 10-30-2024 ambulatory Becky Sun Facility:[facility] Start: 09-29-2024 End: 09-29-[address] Kim Hutchinson MD Work Phone: [facility] Work Phone: Start: 09-29-2024 End: 09-29-[address] Becky Sun MD -[facility] Work Phone: Start: 09-29-2024 End: 09-29-2024 ambulatory Becky Sun Facility:[facility] Start: 08-27-2024 End: 08-27-[address] Kim Hutchinson MD Work Phone: [facility] Work Phone: Start: 08-27-2024 End: 08-27-2024 Patient encounter procedure Melissa Campbell -Laboratory Work Phone: Start: 08-27-2024 End: 08-27-2024 ambulatory Kim Miedigor Facility:[facility] Start: 08-05-2024 End: 08-05-2024 ambulatory [facility] Facility:[facility] Start: 08-05-2024 End: 08-05-2024 Patient encounter procedure BECKY SUN [facility] Start: 07-13-2024 End: 07-13-2024 Patient encounter procedure Garth Hendrix [place] [facility] Work Phone: Start: 07-13-2024 End: 07-13-2024 ambulatory Kim Hutchinson [facility] Start: 06-07-2024 End: 06-07-2024 Emergency department patient visit DR SAMIA MICHEL MD [facility] Start: 05-26-2024 End: 05-26-2024 Patient encounter procedure Garth FRANCIS [facility] Work Phone: Start: 05-26-2024 End: 05-26-2024 ambulatory Garth FRANCIS [facility] Start: 04-22-2024 End: 04-22-2024 Emergency department patient visit Jorje Alberto Facility:[facility] Start: 2024 End: 2024 Emergency department patient visit DR YULIET TREVINO DO [facility] Start: 04-06-2024 End: 04-06-2024 Emergency department patient visit AGUTSIN ACEVES DO [facility] Start: 03-31-2024 End: 03-31-2024 ambulatory [facility] Facility:[facility] Start: 02-12-2024 Encounter for genera l adult medical examination without abnormal findings Kim [facility] Start: 02-06-2024 End: 02-06-2024 ambulatory ATHENA Mikaela [facility] Facility:[facility] Start: 02-06-2024 End: 02-06-2024 Patient encounter procedure Jumana Soliz APRN.HOME HEALTH CLINICIAN Work Phone: [facility] Comment on above: Acute conjunctivitis of right eye, unspecified acute conjunctivitis type (Primary Dx) Start: 01-23-2024 End: 01-23-2024 ambulatory Kim Miabel Facility:[facility] Start: 12-15-2023 ambulatory Melissa Boggs ty:[facility] Start: 11-15-2023 End: 11-15-2023 ambulatory KASSANDRA MCGOVERN MD Facility:[facility] Start: 11-15-2023 End: 11-15-2023 Patient encounter procedure KASSANDRA MCGOVERN MD [facility] Start: 09-24-2023 End: 09-24-2023 Emergency department patient visit SEBAS HARDY MD [facility] Start: 08-12-2023 Telephone encounter Amilcar Harris MD Work Phone: [facility] Comment on above: Results (MSSA); Need for antibiotic Start: 08-09-2023 End: 08-09-2023 ambulatory KIM HUTCHINSON Facility:[facility] Start: 08-09-2023 End: 08-09-2023 Patient encounter procedure Amilcar Veronica MD Work Phone: [facility] Comment on above: Umbilical discharge (Primary Dx) Start: 08-07-2023 End: 08-07-2023 ambulatory AMY LERNER SHADE HANGER-HOME HEALTH CLINICIAN Facility: Start: 08-07-2023 End: 08-07-2023 Patient encounter procedure AMY LERNER [facility]-HOME HEALTH CLINICIAN [facility] Start: 07-29-2023 End: 07-29-2023 Emergency department patient visit DR SAMIA MICHEL MD [facility] Start: 07-27-2023 End: 07-29-2023 Evaluation and management of inpatient WINSOME ARRIETA SHADE HANGER-HOME HEALTH CLINICIAN [facility] Start: 07-26-2023 End: 07-26-2023 ambulatory [facility] Work Phone: Start: 07-26-2023 End: 07-26-2023 Patient encounter procedure [facility] Specimen Work Phone: Start: 06-07-2023 End: 06-07-2023 ambulatory [facility] Work Phone: Start: 06-07-2023 End: 06-07-2023 Patient encounter procedure [facility] Start: 03-28-2023 End: 03-28-2023 ambulatory [facility] Work Phone: Start: 03-28-2023 End: 03-28-2023 [facility] Work Phone: Start: 01-01-2023 End: 01-01-2023 ambulatory [facility] Work Phone: Start: 01-01-2023 End: 01-01-2023 [facility] Start: 03-06-2022 End: 03-06-2022 Patient encounter procedure Garth Moreno MD Work Phone: [facility]iatric[facility] Comment on above: alcohol syndro me (Primary Dx); Development delay; Unspecified intellectual disabilities; Mixed 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); Major depressive disorder, remission status unspecified, unspecified whether recurrent; SYED (generalized anxiety disorder) Start: 02-10-2022 End: 02-10-2022 ambulatory [facility] Work Phone: Start: 02-10-2022 End: 02-10-2022 [facility] Start: 01-16-2022 End: 01-16-2022 ambulatory [facility] Work Phone: Start: 01-16-2022 End: 01-16-2022 Patient encounter procedure [facility] Start: 01-01-2022 End: 01-01-2022 ambulatory [facility] Work Phone: Start: 01-01-2022 End: 01-01-2022 [facility] Start: 12-26-2021 End: 12-26-2021 ambulatory [facility] Work Phone: Start: 12-26-2021 End: 12-26-2021 Patient encounter procedure [facility] Start: 10-26-2021 End: 10-26-2021 Patient encounter procedure MOJGAN FANG MD [facility] Procedures Date Procedure Procedure Detail Performing Clinician Start: 10-30-[address] Kim Hutchinson MD Work Phone: Comment on above: Test Ordered: [id number] Reese 1 and Reese 3 IgGDesmoglein 1 [...] human salt-split skin andmonkey esophagus substrates.Performed at: [facility] [employer] [id number] Director: Desiree Man MD, Phone: [phone] at: [facility] [employer] [id number] Director: Chaparro Samayoa PhD, Phone: [phone] Start: 07-29-2023 Echocardiography MARTINA HARDY MD Comment [...] Covid-19 Vaccine () Covid-19 Vaccine ( season) [facility] Start: 12-15-2023 Influenza vaccination Influenza Vacc ine (#1) [facility] Start: 04-15-2023 Advance Directive Discussion Advance Directive Discussion [facility] Start: 12-14-2022 Covid-19 Vaccine () Covid-19 Vaccine () [facility] Start: 12-14-2021 Influenza vaccination INFLUENZA (#1) [facility] Start: 04-15-2021 ADVANCE DIRECTIVE DISCUSSION ADVANCE DIRECTIVE DISCUSSION [facility] Start: 12-03-2017 Colonoscopy COLONOSCOPY [facility] Start: 12-03-2017 COLORECTAL CANCER SCREENING COLORECTAL CANCER SCREENING [facility] Start: 12-03-2017 Screening for malign ant neoplasm of colon [facility] Start: 07-24-2011 Lipid panel Lipid Screening [facility] Start: 07-24-2011 LIPID SCREEN LIPID SCREEN [facility] Start: 07-02-2011 DIABETES SCREEN DIABETES SCREEN [facility] Start: 07-02-2011 Diabetes Screening Diabetes Screenin g [facility] Start: 2010 RSV Vaccine (1 - 1-d ose 60+ series) RSV Vaccine (1 - 1-dose 60+ series) [facility] Start: 2010 RSV Vaccine (1 - Ris k 60-74 years 1-dose series) RSV Vaccine (1 - Risk 60-74 years 1-dose series) [facility] Start: 2000 SHINGRIX VACCINE (1 of 2) SHINGRIX VACCINE (1 of 2) [facility] Start: 1995 COLOGUARD (FIT-DNA) COLOGUARD (FIT-D NA) [facility] Start: [address] COLONOGRAPHY [facility] Start: 1995 FECAL OCCULT BLOOD FECAL OCCULT BLOO D [facility] Start: 1995 Screening for malign ant neoplasm of colon [facility] Start: 1995 SIGMOIDOSCOPY SIGMOIDOSCOPY [facility] Start: 1969 Urine microalbumin profile [facility] Start: 1968 HEPATITIS C SCREENING HEPATITIS C [facility] Start: 1968 Hepatitis C screening Hepatitis C [facility] Start: 1956 Pneumococcal Vaccine : 65+ (1 of 2 - PCV) Pneumococcal Vaccine: 65+ (1 of 2 - PCV) [facility] Start: 1956 PNEUMOCOCCAL: 65+ (1 - PCV) PNEUMOCOCCAL: 65+ (1 - PCV) [facility] Start: 1950 COVID-19 VACCINE (#1) COVID-19 VACCI NE (#1) [facility] Start: 1950 ABDOMINAL AORTIC ANEURYSM SCREENING ABDOMINAL AORTIC ANEURYSM SCREENING [facility] Start: 1950 Abdominal aortic aneurysm screening Abdominal Aortic Aneurysm Screening [facility] Bacteria identified in Wound by Culture ABSCESS AND WOUND CULTURE WITH GRAM STAIN Microbiology Routine Umbilical discharge Ordered: 08/09/2023 [facility] Work Phone: Comment on above: Ordered: 08/09/2023 Immunizations Immunization Date Immunization Notes Care Provider Christa maloney 11-14-2024 tetanus toxoid, redu chantel diphtheria toxoid, and acellular pertussis vaccine, adsorbed MIKE HUTCHISON DO [facility] 12-14-2022 influenza virus vaccine, unspecified formulation [facility] [facility] 02-01-2022 SARS-CoV-2 (CV19)mRNA-1273 bivalent vac JULY [place] [facility] H[facility]ER-HOME HEALTH CLINICIAN [facility] 03-20-2021 SARS-CoV-2 (COVID-19 ) mRNA-1273 vaccine [facility]HOME HEALTH CLINICIAN [facility] 08-04-2020 SARS-CoV-2 (COVID-19 ) mRNA-1273 vaccine [facility] [facility] Comment on above: Result Comment: 2023: [id number] 07-07-2020 SARS-CoV-2 (COVID-19 ) mRNA-1273 vaccine July [facility]-HOME HEALTH CLINICIAN [facility] Comment on above: Result Comment: 2023: [id number] 03-17-2008 influenza virus vaccine, unspecified formulation Garth Moreno MD Work Phone: [facility] Work Phone: 02-14-2006 influenza virus vaccine, unspecified formulation Garth Moreno MD Work Phone: [facility] Work Phone: Payers Date Payer Category Payer Medicare [id number] 2023 Self-pay [id number] 2015 Medicaid [id number] 2015 Medicaid [id number] 1990 Medicare [id number] 1990 Medicare [id number] 1950 Unknown [id number] 2.16.8 [id number] 1950 Unknown [id number] 2.16.8 40.1.157937.3.579.2.627 1950 Unknown [id number] 2.16.8 40.1.688208.3.579.2.627 1950 Unknown [id number] 2.16.8 40.1.581636.3.579.2.627 1950 Unknown [id number] 2.16.8 40.1.467793.3.579.2.627 1950 Unknown [id number] 2.16. 840.1.539829.3.579.2.627 1950 Unknown [id number] 2.16.8 40.1.536460.3.579.2.627 1950 Unknown [id number] 2.16.8 40.1.178000.3.579.2.627 1950 Unknown [id number] 2.16.8 40.1.316974.3.579.2.627 1950 Unknown [id number] 2.16.8 40.1.510356.3.579.2.627 Private Health Insurance [id number] Unknown [id number] 2.16.8 40.1.859930.3.579.2.462 Unknown [id number] 2.16.8 40.1.035215.3.579.2.462 Unknown [id number] 2.16.8 40.1.912056.3.579.2.462 Unknown [id number] 2.16.8 40.1.195358.3.579.2.462 Unknown [id number] 2.16.8 40.1.475731.3.579.2.462 Unknown [id number] 2.16.8 40.1.670576.3.579.2.462 Unknown [id number] 2.16.8 40.1.647841.3.579.2.462 Unknown [id number] 2.16.8 40.1.133407.3.579.2.462 Unknown [id number] 2.16.8 40.1.345546.3.579.2.462 Social History Date Type Detail Facility Start: 04-03-2019 Tobacco smoking status Heavy t obacco smoker (finding) [facility] Sex Assigned At [facility] Start: 12-02-2017 End: 12-02-2017 Tobacco smoking status NHIS Unknown if ever smoked [facility] Start: 12-02-[address] [facility] Start: 1950 Sex Assigned At Male [facility] Start: 03-06-2022 End: 04-22-2024 Tobacco smoking status NHIS Smokes tobacco daily [facility] History of tobacco use Cigarette Smoker C [facility] Start: 03-06-2022 End: 08-09-2023 Cigarettes smoked current (pack per day) - Reported 0.5 [facility] Start: 03-06-2022 End: 02-06-2024 Tobacco use and exposure Smokeless tobacco non-user [facility] Start: 03-06-2022 End: 02-06-2024 Alcohol intake Current non-drinker of alcohol (finding) [facility] Start: 03-06-2022 Tobacco Comment maybe longer s moke hx difficult to asses [facility] Start: 1950 Sex Assigned At Not on file C [facility] Start: 02-24-2022 End: 03-06-2022 Exposure to SARS-CoV-2 (event) Not sure [facility] Start: 12-17-2018 End: 08-09-2023 Tobacco use panel [facility] Adult Depression Screening Assessment 0 [facility] Start: 05-24-2005 Sex Male (finding) [facility] Medical Equipment Procedure Code Equipment Code Equipment Origin al Text Equipment Identifier Dates See Instructions , Glucometer, alcohol swabs, lancets., # 1 EA, 0 Refill(s), Pharmacy: [facility]/pharmacy #[id number], 182.9, cm, 07/28/23 1:57:00 EDT, Height, 70.5, kg, 07/28/23 1:57:00 EDT, Dosing Weight Start: 07-29-2023 See Instructions , Lancets for glucose to be checked TID., # 1 EA, 0 Refill(s), Pharmacy: [facility]/pharmacy #[id number], Type 2 diabetes mellitus, 182.9, cm, 07/28/23 1:57:00 EDT, Height, 70.5, kg, 07/28/23 1:57:00 EDT, Dosing Weight Start: 07-29-2023 See Instructions , 90 Glucometer strips., # 1 EA, 0 Refill(s), Pharmacy: [facility]/pharmacy #[id number], Type 2 diabetes mellitus, 182.9, cm, 07/28/23 1:57:00 EDT, Height, 70.5, kg, 07/28/23 1:57:00 EDT, Dosing Weight Start: 07-29-2023 See Instructions , Glucometer, alcohol swabs, lancets., # 1 EA, 0 Refill(s), Pharmacy: [facility]/pharmacy #[id number], 182.9, cm, 07/28/23 1:57:00 EDT, Height, 70.5, kg, 07/28/23 1:57:00 EDT, Dosing Weight Start: 07-29-2023 See Instructions , Lancets for glucose to be checked TID., # 1 EA, 0 Refill(s), Pharmacy: [facility]/pharmacy #[id number], Type 2 diabetes mellitus, 182.9, cm, 07/28/23 1:57:00 EDT, Height, 70.5, kg, 07/28/23 1:57:00 EDT, Dosing Weight Start: 07-29-2023 See Instructions , 90 Glucometer strips., # 1 EA, 0 Refill(s), [id number], Type 2 diabetes mellitus, 182.9, cm, 07/28/23 1:57:00 EDT, Height, 70.5, kg, 07/28/23 1:57:00 EDT, Dosing Weight Start: 07-29-2023 See Instructions , Glucometer, alcohol swabs, lancets., # 1 EA, 0 Refill(s), [id number], 182.9, cm, 07/28/23 1:57:00 EDT, Height, 70.5, kg, 07/28/23 1:57:00 EDT, Dosing Weight Start: 07-29-2023 See Instructions , Lancets for glucose to be checked TID., # 1 EA, 0 Refill(s), Pharmacy: [facility]/pharmacy #[id number], Type 2 diabetes mellitus, 182.9, cm, 07/28/23 1:57:00 EDT, Height, 70.5, kg, 07/28/23 1:57:00 EDT, Dosing Weight Start: 07-29-2023 See Instructions , 90 Glucometer strips., # 1 EA, 0 Refill(s), [id number], Type 2 diabetes mellitus, 182.9, cm, 07/28/23 1:57:00 EDT, Height, 70.5, kg, 07/28/23 1:57:00 EDT, Dosing Weight Start: 07-29-2023 See Instructions , Glucometer, alcohol swabs, lancets., # 1 EA, 0 Refill(s), [facility], 182.9, cm, 07/28/23 1:57:00 EDT, Height, 70.5, kg, 07/28/23 1:57:00 EDT, Dosing Weight Start: 07-29-2023 See Instructions , Lancets for glucose to be checked TID., # 1 EA, 0 Refill(s), [id number], Type 2 diabetes mellitus, 182.9, cm, 07/28/23 1:57:00 EDT, Height, 70.5, kg, 07/28/23 1:57:00 EDT, Dosing Weight Start: 07-29-2023 See Instructions , 90 Glucometer strips., # 1 EA, 0 Refill(s), [id number], Type 2 diabetes mellitus, 182.9, cm, 07/28/23 1:57:00 EDT, Height, 70.5, kg, 07/28/23 1:57:00 EDT, Dosing Weight Start: 07-29-2023 See Instructions , Glucometer, alcohol swabs, lancets., # 1 EA, 0 Refill(s), [facility], 182.9, cm, 07/28/23 1:57:00 EDT, Height, 70.5, kg, 07/28/23 1:57:00 EDT, Dosing Weight Start: 07-29-2023 See Instructions , Lancets for glucose to be checked TID., # 1 EA, 0 Refill(s), [id number], Type 2 diabetes mellitus, 182.9, cm, 07/28/23 1:57:00 EDT, Height, 70.5, kg, 07/28/23 1:57:00 EDT, Dosing Weight Start: 07-29-2023 See Instructions , 90 Glucometer strips., # 1 EA, 0 Refill(s), [id number], Type 2 diabetes mellitus, 182.9, cm, 07/28/23 1:57:00 EDT, Height, 70.5, kg, 07/28/23 1:57:00 EDT, Dosing Weight Start: 07-29-2023 Start: 10-10-2023 See Instructions , Glucometer, alcohol swabs, lancets., # 1 EA, 0 Refill(s), [facility], 182.9, cm, 07/28/23 1:57:00 EDT, Height, 70.5, kg, 07/28/23 1:57:00 EDT, Dosing Weight Start: 07-29-2023 See Instructions , Lancets for glucose to be checked TID., # 1 EA, 0 Refill(s), Pharmacy: [facility] #4605, Type 2 diabetes mellitus, 182.9, cm, 07/28/23 1:57:00 EDT, Height, 70.5, kg, 07/28/23 1:57:00 EDT, Dosing Weight Start: 07-29-2023 See Instructions , 90 Glucometer strips., # 1 EA, 0 Refill(s), [facility], Type 2 diabetes mellitus, 182.9, cm, 07/28/23 1:57:00 EDT, Height, 70.5, kg, 07/28/23 1:57:00 EDT, Dosing Weight Start: 07-29-2023 See Instructions , Glucometer, alcohol swabs, lancets., # 1 EA, 0 Refill(s), [facility], 182.9, cm, 07/28/23 1:57:00 EDT, Height, 70.5, kg, 07/28/23 1:57:00 EDT, Dosing Weight Start: 07-29-2023 See Instructions , Lancets for glucose to be checked TID., # 1 EA, 0 Refill(s), [facility], Type 2 diabetes mellitus, 182.9, cm, 07/28/23 1:57:00 EDT, Height, 70.5, kg, 07/28/23 1:57:00 EDT, Dosing Weight Start: 07-29-2023 See Instructions , 90 Glucometer strips., # 1 EA, 0 Refill(s), [facility], Type 2 diabetes mellitus, 182.9, cm, 07/28/23 1:57:00 EDT, Height, 70.5, kg, 07/28/23 1:57:00 EDT, Dosing Weight Start: 07-29-2023 See Instructions , Glucometer, alcohol swabs, lancets., # 1 EA, 0 Refill(s), [facility], 182.9, cm, 07/28/23 1:57:00 EDT, Height, 70.5, kg, 07/28/23 1:57:00 EDT, Dosing Weight Start: 07-29-2023 See Instructions , Lancets for glucose to be checked TID., # 1 EA, 0 Refill(s), [facility], Type 2 diabetes mellitus, 182.9, cm, 07/28/23 1:57:00 EDT, Height, 70.5, kg, 07/28/23 1:57:00 EDT, Dosing Weight Start: 07-29-2023 See Instructions , 90 Glucometer strips., # 1 EA, 0 Refill(s), [facility], Type 2 diabetes mellitus, 182.9, cm, 07/28/23 1:57:00 EDT, Height, 70.5, kg, 07/28/23 1:57:00 EDT, Dosing Weight Start: 07-29-2023 See Instructions , Glucometer, alcohol swabs, lancets., # 1 EA, 0 Refill(s), [facility], 182.9, cm, 07/28/23 1:57:00 EDT, Height, 70.5, kg, 07/28/23 1:57:00 EDT, Dosing Weight Start: 07-29-2023 See Instructions , Lancets for glucose to be checked TID., # 1 EA, 0 Refill(s), [facility], Type 2 diabetes mellitus, 182.9, cm, 07/28/23 1:57:00 EDT, Height, 70.5, kg, 07/28/23 1:57:00 EDT, Dosing Weight Start: 07-29-2023 See Instructions , 90 Glucometer strips., # 1 EA, 0 Refill(s), Pharmacy: [facility]/pharmacy #4605, Type 2 diabetes mellitus, 182.9, cm, 07/28/23 1:57:00 EDT, Height, 70.5, kg, 07/28/23 1:57:00 EDT, Dosing Weight Start: 07-29-2023 See Instructions , Glucometer, alcohol swabs, lancets., # 1 EA, 0 Refill(s), Pharmacy: [facility]/pharmacy #4605, 182.9, cm, 07/28/23 1:57:00 EDT, Height, 70.5, kg, 07/28/23 1:57:00 EDT, Dosing Weight Start: 07-29-2023 See Instructions , Lancets for glucose to be checked TID., # 1 EA, 0 Refill(s), Pharmacy: [facility]/pharmacy #4605, Type 2 diabetes mellitus, 182.9, cm, 07/28/23 1:57:00 EDT, Height, 70.5, kg, 07/28/23 1:57:00 EDT, Dosing Weight Start: 07-29-2023 See Instructions , 90 Glucometer strips., # 1 EA, 0 Refill(s), [id number], Type 2 diabetes mellitus, 182.9, cm, 07/28/23 1:57:00 EDT, Height, 70.5, kg, 07/28/23 1:57:00 EDT, Dosing Weight Start: 07-29-2023 Functional Status Date Assessment Result Facility 06-07-2024 Functional Status Minimum assistance [facility] 06-07-2024 Functional Status Awake [facility] 2024 Functional Status Assistive Device None A [facility] 2024 Functional Status Ambulation in [place], Ambulation in Room [facility] 04-06-2024 Functional Status ID band on, Call device within reach, Bed in low position, Wheels locked, Upper/Half-Length side-rails up, Visitor at bedside, Safety level maintained [facility] 09-24-2023 Functional Status ID band on, Call device within reach, Bed in low position, Wheels locked, Upper/Half-Length side-rails up, Bedside Cart Locked, Visitor at bedside, Safety level maintained [facility] 07-29-2023 Functional Status Awake, Resting [facility] 07-29-2023 Functional Status Room check performed [facility] 07-29-2023 Functional Status A[facility] 07-29-2023 Functional Status Alesha [facility] 07-29-2023 Functional Status Lunch Percent 20 [facility] 07-29-2023 Functional Status Min A [facility] 07-29-2023 Functional Status Alesha [facility] 07-28-2023 Functional Status Alesha [facility] 07-28-2023 Functional Status Alesha [facility] 07-28-2023 Functional Status Single level home [facility] 07-28-2023 Functional Status Alesha [facility] 07-28-2023 Functional Status [facility] 07-28-2023 Functional Status Sensory Deficits None A [facility] Mental Status Date Assessment Result Facility 06-07-2024 Mental Status Orientation Foll ows simple commands [facility] 06-07-2024 Mental Status [facility] 2024 Mental Status Orientation Oriented x 4 [facility] 2024 Mental Status [facility] 04-06-2024 Mental Status Oriented x 4 [facility] 09-24-2023 Mental Status Orientation Othe r: alert and oriented at baseline [facility] 07-29-2023 Mental Status Forgetful [facility] 07-29-2023 Mental Status Follows simple commands [facility] 07-29-2023 Mental Status [facility] 07-28-2023 Mental Status [facility] Clinical Notes 03-17-2021 to 11-14-2024 Note [...] by your healthcare provider Wound edges reopen 8989-0917 [employer] [address] [place] [address]. All rights reserved. This information is not [...] Wound changes colors Numbness around the wound 5311-9530 [employer] [address] [place] [address]. All rights reserved. This information is not intended as a substitute for professional medical care. Always follow your healthcare professional's instructions. Follow Up Care 11/14/2024 09:09:48 With:Go to emergency room if symptoms worsen Address:Unknown When:2-4 days With:KIM HUTCHINSON Address: [address] [place] [id number] [phone] When:2-[address] [facility] 11-14-2024 Note Discharge Instructions Thank you for allowing [facility] to assist you with your healthcare needs. [...] with KIM HUTCHINSON When:Within 2-4 days Where:[address] [place] [address] [phone] Allergies Bactrim amoxicillin Medications Please ask your [...] by your healthcare provider Wound edges reopen [phone] [employer] [address] [place] [address], [place] [address]. All rights reserved. This information is not [...] Wound changes colors Numbness around the wound 4073-0036 [employer] [address] [place] [address], [place] [address]. All rights reserved. This information is not intended as a substitute for professional medical care. Always follow your healthcare professional's instructions. Additional Information VACCINATE! IT SAVES LIVES! Members of the community who have not yet received the COVID-19 vaccine and would like to receive it can visit one of [facility] vaccine clinics. There are many vaccine clinic locations within the [facility]. For locations and available times, please visit [email or web address] It is important to note that some COVID mobile vaccine clinics are held outdoors and may be canceled in rainy or stormy conditions. To learn more about pediatric vaccinations (ages 5-11), we invite you to visit the [facility] webpage. [email or web address] To learn more about the COVID-19 vaccine, we invite you to visit the CDC website for a list of frequently asked questions. https://www.cdc.gov/coronavirus/ 2019-ncov/vaccines/faq.html [facility] [employer] Patient Portal Access Instructions: Stay connected with your healthcare team and access your personal medical information anytime with the [facility] Patient Portal. If you would like a full copy of your medical records please contact the [facility] Medical Records Department Saturday through Saturday between 8a.m. and 4:30p.m. Please follow the directions below to access the portal: 1.Access the email account you provided upon registration to the hospital.2.Look for an invitation email from [facility].3.Open the email and access the invitation link: Accept Invitation to [facility]4.Fill in the required blanco to create your account. Sign into [email or web address] with your username and password that you [...] you will allow to register on the [facility] Patient Portal for access to your information. You can also access the [facility] Patient Portal on the [employer] Simply click on Health Records under Health Data and then click on the [employer] logo. HOW TO SAFELY DISPOSE OF PRESCRIPTION [...] Call your local pharmacy or go to http://[email or web address]/6L7Pd8l to find one close to you.3.Make use of household items: Use cat litter or old coffee grounds to dispose medications if other options are not available. Mix your drugs with these household products, seal them in an airtight container and throw it into the garbage. Call [facility]: [phone] to be sure your drugs can be [...] aware that I should contact my doctor. 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 11-14-2024 Note Exam Date Time Procedure Performing Provider Status 11/14/24 10:[address] Spine Cervical w/o Contrast RICHY CRUZ MD; Auth (Verified) [id number] ORIGINAL EXAMINATION: CT OF THE CERVICAL SPINE [...] 11/14/2024 10:48:00 AM Ordering Provider: MIKE HUTCHISON [facility]08-02-2025 Note* Exam Date Time Procedure Performing Provider Status 11/14/24 10:[address] Maxillofacial w/o Contrast RICHY CRUZ MD; Auth (Verified) [id number] ORIGINAL EXAMINATION: CT OF THE FACE WITHOUT [...] Date: 11/14/2024 10:44:56 AM Ordering Provider: MIKE [facility]08-02-2025 Note* Exam Date Time Procedure Performing Provider Status 11/14/24 10:[address] Head or Brain w/o Contrast ST JANETT NORTON DO; Auth (Verified) [id number] ORIGINAL EXAMINATION: CT OF THE HEAD WITHOUT CONTRAST 11/14/2024 10:36 am TECHNIQUE: CT of the head was performed without the administration of intravenous contrast. Automated exposure control, iterative reconstruction, and/or weight based adjustment of the mA/kV was utilized to reduce the radiation dose to as low as reasonably achievable. COMPARISON: None. HISTORY: ORDERING SYSTEM PROVIDED HISTORY: Reason for Exam: fall at correction. FINDINGS: Study limited by persistent patient motion. [...] 11/14/2024 10:44:46 AM Ordering Provider: MIKE HUTCHISON [facility]02-23-2025 Hospital Discharge instructions Patient Education 06/07/2024 [...] told. A restriction will beput on your regional driver s license until a doctor gives [...] Headache or neck pain that gets worse 7620-8522 [employer]. [address] [place] [address]. All rights reserved. This information is not [...] a towel soaked in hot water. Or, dental internship the shower and direct the warm spray onto your face. Using a vaporizer along with a menthol rub at nightmay also help soothe symptoms. An expectorant with guaifenesin may help thin nasal mucus and help your sinuses drain fluids. You can use an qlcl-lbs-ttmuxbb decongestant, unless a similar medicine was prescribed [...] decongest ants. They can raise blood pressure.) Ujhj-vmr-vmfdhko antihistamines may help if allergies contributed to [...] up to date with of your vaccines. 4070-5968 [employer]. [address] [place] [address]. All rights reserved. This information is not intended as a substitute for professional medical care. Always follow yourhealthcare professional's instructions. Follow Up Care 06/07/2024 12:43:01 With:KIM HUTCHINSON Address: [facility] [address]RIAM [place] [address] [phone] When:2-[address] [facility] 02-23-2025 Note Discharge Instructions Thank you for allowing [facility] to assist you with your healthcare needs. [...] Up with KIM HUTCHINSON When:Within 2-4 days Where:[facility] [address] [place] [address] [phone] Allergies Bactrim amoxicillin Medications Please ask your [...] told. A restriction will beput on your regional driver s license until a doctor gives [...] Headache or neck pain that gets worse 5101-2751 [employer]. [address] [place] [address]. All rights reserved. This information is not [...] a towel soaked in hot water. Or, dental internship the shower and direct the warm spray onto your face. Using a vaporizer along with a menthol rub at nightmay also help soothe symptoms. An expectorant with guaifenesin may help thin nasal mucus and help your sinuses drain fluids. You can use an ybzt-tth-xxrdjnl decongestant, unless a similar medicine was prescribed [...] decongest ants. They can raise blood pressure.) Eqfh-otn-cdwztbn antihistamines may help if allergies contributed to [...] up to date with of your vaccines. 8222-9541 [employer]. [address] [place] [address]. All rights reserved. This information is not intended as a substitute for professional medical care. Always follow yourhealthcare professional's instructions. Additional Information VACCINATE! IT SAVES LIVES! Members of the community who have not yet received the COVID-19 vaccine and would like to receive it can visit one of [facility] vaccine clinics. There are many vaccine clinic locations within the [facility]. For locations and available times, please visit www.gettheshot.coronavirus.[place].gov/. It is important to note that some COVID mobile vaccine clinics are held outdoors and may be canceled in rainy or stormy conditions. To learn more about pediatric vaccinations (ages 5-11), we invite you to visit the [facility] webpage. https://www.[facility].org/pages/2611-Piyuf-Dalibmuztpb-Jbcdfymsjd-Tvxyl-Hkt stions.htmlTo learn more about the COVID-19 vaccine, we invite you to visit the CDC website for a list of frequently asked questions. https://www.cdc.gov/coronavirus/2019-ncov/vaccines/faq.html [facility] [employer] Patient Portal Access Instructions: Stay connected with your healthcare team and access your personal medical information anytime with the [facility] Patient Portal. If you would like a full copy of your medical records please contact the [facility] Medical Records Department Saturday through Saturday between 8a.m. and 4:30p.m. Please follow the directions below to access the portal: 1.Access the email account you provided upon registration to the [facility].2.Look for an invitation email from [facility].3.Open the email and access the invitation link: Accept Invitation to [facility]4.Fill in the required blanco to create your account. Sign into [email or web address] with your username and password that you [...] you will allow to register on the [employer] Patient Portal for access to your information. You can also access the [facility] [facility] Patient Portal on the [employer] Simply click on Health Records under Packetmotion and then click on the [employer] logo. HOW TO SAFELY DISPOSE OF PRESCRIPTION [...] Call your local pharmacy or go to http://SoundHound.StylePuzzle/8W1Mu1y to find one close to you.3.Make use of household items: Use cat litter or old coffee grounds to dispose medications if other options arenot available. Mix your drugs with these household products, seal them in an airtight container andthrow it into the garbage. Call [facility]: [phone] to be sure your drugs can be [...] aware that I should contact my doctor. 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02-23-2025 Note* Exam Date Time Procedure Performing Provider Status 06/07/24 2:[address] Head or Brain w/o Contrast Danita HERNANDEZ MD; Auth (Verified) [id number] ORIGINAL EXAMINATION: CT OF THE HEAD WITHOUT [...] Sign Date: 06/07/2024 2:19:30 PM Ordering Provider: [facility]02-23-2025 Note* Exam Date Time Procedure Performing Provider Status 06/07/24 2:11 PM XR Chest 1 View ASHOK HERNANDEZ MD; Aut h (Verified) [id number] ORIGINAL EXAMINATION: ONE XRAY VIEW OF THE [...] Date: 06/07/2024 2:16:33 PM Ordering Provider: SAMIA [facility]02-23-2025 Nurse Progress note Pt Guardian is Maggie Mckeon phone #[phone]. Pt Videotape Sales Representative named Fany is in room with pt and stated I'm the closest thing to family he has, but has no POA status. Digitally Signed by Swapnil Saldivar RN on 06/07/2024 01:[address] [facility]02-23-2025 Note* Exam Date Time Procedure Performing Provider Status 06/07/24 12:48 PM EKG [ED AOH] - CV MD MARILU, DASHA Claire MD; Auth (Verified) ECG Final Report Sinus rhythm Left axis deviation Abnormal T, consider ischemia, lateral leads Electronic Signature: MD MARILU, SAMIA YOON 06/07/2024 15:55:[address] [facility]02-11-2025 Evaluation note* Diagnosis Onset Date Resolution Status Admit Date Cellulitis of right eyelid acute May 26, 2024 3:05pm Conjunctivitis, right eye acute May 26, 2024 3:05pm [facility] Work Phone: 1(411) 323-635001-12-2025 Note. MICRO - Microbiology PROCEDURE: Blood Culture [...] Locations *1: This test was performed at: [facility], [address] [place] [address], [address] [place], [place] [address]01-12-2025 Note. MICRO - Microbiology PROCEDURE: Blood Culture [...] Locations *1: This test was performed at: [facility], [address] [place] [address], [phone] , [facility]01-06-2025 Emergency department Discharge summary Discharge Instructions Thank you for allowing [facility] to assist you with your healthcare needs. [...] with KIM HUTCHINSON When:Within 2-4 days Where:[address] [place] [address] [phone] Allergies Bactrim amoxicillin Medications Please ask your [...] or higher after 2 days on antibiotics 8511-3286 [employer]. [address] [place] [address]. All rights reserved. This information is not intended as a substitute for professional medical care. Always follow yourhealthcare professional's instructions. Additional Information VACCINATE! IT SAVES LIVES! Members of the community who have not yet received the COVID-19 vaccine and would like to receive it can visit one of [facility] vaccine clinics. There are many vaccine clinic locations within the [facility]. For locations and available times, please visit www.gettheshot.coronavirus.[place].gov/. It is important to note that some COVID mobile vaccine clinics are held outdoors and may be canceled in rainy or stormy conditions. To learn more about pediatric vaccinations (ages 5-11), we invite you to visit the [facility] webpage. https://www.[facility].org/pages/3012-Jdkzh-Kwfmgxbkurs-Tztzovjhvz-Xwghp-Zxi stions.htmlTo learn more about the COVID-19 vaccine, we invite you to visit the CDC website for a list of frequently asked questions. https://www.cdc.gov/coronavirus/2019-ncov/vaccines/faq.html [facility] Patient Portal Access Instructions: Stay connected with your healthcare team and access your personal medical information anytime with the [facility] Patient Portal. If you would like a full copy of your medical records please contact the [facility] Medical Records Department Saturday through Saturday between 8a.m. and 4:30p.m. Please follow the directions below to access the portal: 1.Access the email account you provided upon registration to the [facility].2.Look for an invitation email from [facility].3.Open the email and access the invitation link: Accept Invitation to [facility]4.Fill in the required blanco to create your account. Sign into [email or web address] with your username and password that you [...] you will allow to register on the [facility] Patient Portal for access to your information. You can also access the [facility] Patient Portal on the [employer] weston. Simply click on Health Records under [employer] and then click on the [employer] logo. HOW TO SAFELY DISPOSE OF PRESCRIPTION [...] Call your local pharmacy or go to http://SoundHound.StylePuzzle/0B9Lz4b to find one close to you.3.Make use of household items: Use cat litter or old coffee grounds to dispose medications if other options arenot available. Mix your drugs with these household products, seal them in an airtight container andthrow it into the garbage. Call [facility]: [phone] to be sure your drugs can be [...] aware that I should contact my doctor. Patient/Clinical Laboratory Service Teacher Signature: Date/Time: Relationship to Patient: Witness Name/Signature: Date/Time: [facility] Alesharigo [id number] Hospital Discharge instructions Patient Education 2024 18:09:03 [...] or higher after 2 days on antibiotics 2346-0029 [employer]. [address] [place] [address], [place] [address]. All rights reserved. This information is not intended as a substitute for professional medical care. Always follow yourhealthcare professional's instructions. Follow Up Care 2024 17:26:27 With:Go to emergency room if symptoms worsen Address:Unknown When:2-4 days With:KIM HUTCHINSON Address: [address] [place] [address] [place], [place] [phone] [phone] When:2-[address] [facility] 01-06-2025 Note* Exam Date Time Procedure Performing Provider Status 04/20/24 8:[address] Orbit Sella etc. w/ Contrast SOUTH DEGROOT MD; Auth (Ticmwiqk) [id number] ORIGINAL EXAMINATION: CT OF THE ORBIT WITH [...] Date: 2024 8:37:58 PM Ordering Provider: BRADLEY [facility]12-23-2024 Hospital Discharge instructions Patient Education 04/06/2024 [...] or higher after 2 days on antibiotics 7697-9916 [employer]. [address] [place] [address]. All rights reserved. This information is not intended as a substitute for professional medical care. Always follow yourhealthcare professional's instructions. Follow Up Care 04/06/2024 12:08:07 With:KIM HUTCHINSON Address: [address] [place] [phone] [phone] When:2-[address] [facility] 12-23-2024 Note Discharge Instructions Thank you for allowing [facility] to assist you with your healthcare needs. [...] with KIM HUTCHINSON When:Within 2-4 days Where:[address] [place] [address] [phone] Allergies NKA Medications Please ask your primary [...] MPC, Lymepak, Mondoxyne NL, Monodox, Morgidox, Morgidox 7a600tr, Morgidox 6c452lh, Okebo, Oracea, Targadox What is the most [...] or life-threatening conditions such as anthrax or [place] spotted fever. The benefit of treating a [...] may report side effects to FDA at 4-973-FXQ-9435. What other drugs will affect doxycycline? Sometimes it is not safe to use certain medications at the same time. Some drugs can affect your blood levels of other drugs you take, which may increase side effects or make the medications less effective. Other drugs may affect doxycycline, including prescription and vgrj-ptj-roshhvy medicines, vitamins, and herbal products. Tell your [...] to ensure that the information provided by [employer] ('[employer]') is accurate, up-to-date, and complete, but no guarantee is made to that effect. Drug information contained herein may be time sensitive. [employer] information has been compiled for use by healthcare practitioners and consumers in the [place] and therefore [employer] does not warrant that uses outside of the [place] are appropriate, unless specifically indicated otherwise. [employer] drug information does not endorse drugs, diagnose patients or recommend therapy. [employer] drug information isan informational resource designed to [...] effective or appropriate for any given patient. [employer] does not assume any responsibility for any aspect of healthcare administered with the aid of information [employer] provides. The information contained herein is not intended to cover all possible uses, directions, precautions, warnings, drug interactions, allergic reactions, or adverse effects. If you have questions about the drugs you are taking, check with your doctor, nurse or pharmacist. Copyright 3502-7563 [employer] [employer]. Version: 25.02. Revision Date: 04/01/2024. cephalexin (sef [...] may report side effects to FDA at 4-389-NIS-8309. What other drugs will affect cephalexin? Tell your doctor about all your other medicines, especially: metformin; or probenecid. This list is not complete. Other drugs may affect cephalexin, including prescription and ghkc-ysp-hdddfdq medicines, vitamins, and herbal products. Not all [...] to ensure that the information provided by [employer]') is accurate, up-to-date, and complete, but no guarantee is made to that effect. Drug information contained herein may be time sensitive. [employer] information has been compiled for use by healthcare practitioners and consumers in the [place] and therefore [employer] does not warrant that uses outside of the [place] are appropriate, unless specifically indicated otherwise. [employer] drug information does not endorse drugs, diagnose patients or recommend therapy. [employer] drug information isan informational resource designed to [...] effective or appropriate for any given patient. [employer] does not assume any responsibility for any aspect of healthcare administered with the aid of information [employer] provides. The information contained herein is not intended to cover all possible uses, directions, precautions, warnings, drug interactions, allergic reactions, or adverse effects. If you have questions about the drugs you are taking, check with your doctor, nurse or pharmacist. Copyright 8936-2263 [employer]. Version: 03.15. Revision Date: 11/14/2022. Education Materials [...] or higher after 2 days on antibiotics 3771-1170 [employer]. [address] [place], [place] [address]. All rights reserved. This information is not intended as a substitute for professional medical care. Always follow yourhealthcare professional's instructions. Additional Information VACCINATE! IT SAVES LIVES! Members of the community who have not yet received the COVID-19 vaccine and would like to receive it can visit one of [facility] vaccine clinics. There are many vaccine clinic locations within the [facility]. For locations and available times, please visit www.gettheshot.coronavirus.[place].gov/. It is important to note that some COVID mobile vaccine clinics are held outdoors and may be canceled in rainy or stormy conditions. To learn more about pediatric vaccinations (ages 5-11), we invite you to visit the [facility] webpage. https://www.[employer].org/pages/9594-Fotli-Wsyjdabifar-Nhflojwtww-Syrxd-Uxw stions.htmlTo learn more about the COVID-19 vaccine, we invite you to visit the CDC website for a list of frequently asked questions. https://www.cdc.gov/coronavirus/2019-ncov/vaccines/faq.html [facility] [employer] Patient Portal Access Instructions: Stay connected with your healthcare team and access your personal medical information anytime with the [facility] Patient Portal. If you would like a full copy of your medical records please contact the [facility] Medical Records Department Saturday through Saturday between 8a.m. and 4:30p.m. Please follow the directions below to access the portal: 1.Access the email account you provided upon registration to the [facility].2.Look for an invitation email from [facility].3.Open the email and access the invitation link: Accept Invitation to [facility] [employer]4.Fill in the required blanco to create your account. Sign into [email or web address] with your username and password that you [...] you will allow to register on the [facility] Patient Portal for access to your information. You can also access the [employer] Patient Portal on the [employer] Simply click on Health Records under [employer] and then click on the [employer] logo. HOW TO SAFELY DISPOSE OF PRESCRIPTION [...] Call your local pharmacy or go to http://SoundHound.StylePuzzle/8S6Li1q to find one close to you.3.Make use of household items: Use cat litter or old coffee grounds to dispose medications if other options arenot available. Mix your drugs with these household products, seal them in an airtight container andthrow it into the garbage. Call [facility]: [phone] to be sure your drugs can be [...] aware that I should contact my doctor. 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10-24-2024 NoteHNO ID: [id number] Author: JUMANA SOLIZ APRN.HOME HEALTH CLINICIAN Service: ? Author Type: Nurse Practitioner Type: [...] (Patient not taking: Reported on 02/06/2024) timolol/dorzolamide/latanop/PF (SYOEMWJ-PDKBACLGEA-ZQSMEMD,PF,) 0.5-2-0.005 % drop Use in eyes. (Patient [...] call if high fever, (more content not included)...[facility]10-24-2024 History of Present illness Narrative* Jumana Soliz APRN.HOME HEALTH CLINICIAN - 02/06/2024 12:09 PM EDT Subjective HPI [...] area. (Patient not taking: Reported on02/06/2024) timolol/dorzolamide/latanop/PF (LCVINQP-JTEYOPPZYK-ZAHVGKC,PF,) 0.5-2-0.005 % drop Use in eyes. (Patient [...] DROPS Jumana Soliz APRN.RAMIRO [facility] Inst[facility]* Patient Instructions* Jumana Soliz APRN.CNP [...] 100.5 F (38 C). [facility] Hospital Discharge instructions Patient Education 09/24/2023 [...] grows, it spreads out in a [place]. Because of how it looks, fungal skin [...] worse Foul-smelling fluid leaking from the skin 5211-9274 [employer]. [address] [place] [address], [place] [address]. All rights reserved. This information is not [...] the first few days. You may use mmwt-bzv-ejmdmpx medicine, such as acetaminophen or ibuprofen, to [...] F (38 C) or as advised Seizure 1456-8455 [employer]. [address] [place] [address]. All rights reserved. This information is not intended as a substitute for professional medical care. Always follow yourhealthcare professional's instructions. Follow Up Care 09/24/2023 11:21:09 With:KIM HUTCHINSON Address: [address] [place], [place] [address] [phone] When:2-[address] [facility] 06-11-2024 Emergency department Discharge summary Discharge Instructions Thank you for allowing [facility] to assist you with your healthcare needs. The following is importantdischarge information regarding your hospital visit. What to Do Next Instructions from Your Care Team No qualifying data available. Post Acute Orders No qualifying data available. You Need to Schedule the Following Appointments Follow Up with KIM HUTCHINSON When:Within 2-4 days Where:[facility] [place] [phone] Allergies NKA Medications Please ask your primary [...] grows, it spreads out in a [place]. Because of how it looks, fungal skin [...] worse Foul-smelling fluid leaking from the skin 0539-4189 [employer]. [address] [place] [address]. All rights reserved. This information is not [...] the first few days. You may use jedc-lgd-qoowodj medicine, such as acetaminophen or ibuprofen, to [...] F (38 C) or as advised Seizure 0075-9976 The [employer]. [address] [place] [address]. All rights reserved. This information is not intended as a substitute for professional medical care. Always follow yourhealthcare professional's instructions. Additional Information VACCINATE! IT SAVES LIVES! Members of the community who have not yet received the COVID-19 vaccine and would like to receive it can visit one of [facility] vaccine clinics. There are many vaccine clinic locations within the [facility]. For locations and available times, please visit www.gettheshot.coronavirus.[place].gov/. It is important to note that some COVID mobile vaccine clinics are held outdoors and may be canceled in rainy or stormy conditions. To learn more about pediatric vaccinations (ages 5-11), we invite you to visit the [facility] webpage. https://www.[facility].org/pages/5814-Krjng-Bzsmqlpgyhi-Xfzvbauass-Oesrv-Dlw stions.htmlTo learn more about the COVID-19 vaccine, we invite you to visit the CDC website for a list of frequently asked questions. https://www.cdc.gov/coronavirus/2019-ncov/vaccines/faq.html [facility] [employer] Patient Portal Access Instructions: Stay connected with your healthcare team and access your personal medical information anytime with the [facility] [employer] Patient Portal. If you would like a full copy of your medical records please contact the [facility] Medical Records Department Saturday through Saturday between 8a.m. and 4:30p.m. Please follow the directions below to access the portal: 1.Access the email account you provided upon registration to the [facility].2.Look for an invitation email from [facility].3.Open the email and access the invitation link: Accept Invitation to [facility]4.Fill in the required blanco to create your account. Sign into [email or web address] with your username and password that you [...] you will allow to register on the [facility] Patient Portal for access to your information. You can also access the [facility] [employer] Patient Portal on the [employer] Simply click on Health Records under Packetmotion and then click on the [employer] logo. HOW TO SAFELY DISPOSE OF PRESCRIPTION [...] Call your local pharmacy or go to http://SoundHound.StylePuzzle/5N0Fi5b to find one close to you.3.Make use of household items: Use cat litter or old coffee grounds to dispose medications if other options arenot available. Mix your drugs with these household products, seal them in an airtight container andthrow it into the garbage. Call [facility]: [phone] to be sure your drugs can be [...] aware that I should contact my doctor. 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04-29-2024 Telephone encounter Note* Telephone Encounter - Katiuska Palomares RN - 08/12/2023 2:56 PM EDT Called and instructed [place] pharmacy not to fill script. Called and spoke with Yvette at [facility]. Gave her verbal order for antibiotic. [facility]04-29-2024 Miscellaneous Notes* Telephone Encounter - Katiuska Palomares RN - 08/12/2023 2:56 PM EDT Called and instructed [place] pharmacy not to fill script. Called and spoke with Yvette at [facility]. Gave her verbal order for antibiotic. * Telephone Encounter - Katiuska Palomares RN - 08/12/2023 2:34 PM EDT accounts manager Josefina returning the call as she states [facility] and that she thinks they attempted to call her. She is notified that pt has a staph infection and needs an antibiotic in addition to continuing the antifungal cream to the umbilicus. Notified that the antibiotic was sent tot pharmacy in [place]. She states that they no longer use that pharmacy and would like antibiotic sent to pt's mail order in [place], [place]. Instructed that pt needs to start the antibiotic today so will need to send to a local pharmacy. After much encouragement, Josefina asks that script be sent to [facility] in [place] and she will pick it up there. Notified guardijerod Neves about pt's results and need for antibiotics. She requests that the nurse Veronica needs to be notified as soon as possible. Attempted to contact her and VM went to a Homa Bender LPN phone number. No msg left. Maggie had stated to call [facility] where pt is currently living and get Veronica's phone number. Called and spoke with Junie at [facility] who states Homa sometimes covers for Veronica. [...] be applied. She will email nurse and fish house worker in charge to follow up. * Telephone Encounter - Amilcar Veronica MD - 08/12/2023 8:36 AM EDT Culture grew staph bacteria. I have sent an oral antibiotic to the pharmacy in [place] to help treat. Continue applying the antifungal cream to the umbilicus. [facility] Telephone encounter Note * Telephone Encounter - Katiuska Palomares RN - 08/12/2023 2:34 PM EDT accounts manager Josefina returning the call as she states [facility] and that she thinks they attempted to call her. She is notified that pt has a staph infection and needs an antibiotic in addition to continuing the antifungal cream to the umbilicus. Notified that the antibiotic was sent tot pharmacy in [place]. She states that they no longer use that pharmacy and would like antibiotic sent to pt's mail order in [place], [place]. Instructed that pt needs to start the antibiotic today so will need to send to a local pharmacy. After much encouragement, Josefina asks that script be sent to [facility] in [place] and she will pick it up there. Notified guardian Maggie Neves about pt's results and need for antibiotics. She requests that the nurse Veronica needs to be notified as soon as possible. Attempted to contact her and VM went to a Homa Bender LPN phone number. No msg left. Maggie had stated to call [facility] where pt is currently living and get Veronica's phone number. Called and spoke with Junie at [facility] who states Homa sometimes covers for Veronica. [...] be applied. She will email nurse and fish house worker in charge to follow up. [facility]04-29-2024 Telephone encounter Note* Telephone Encounter - Amilcar Veronica MD - 08/12/2023 8:36 AM EDT Culture grew staph bacteria. I have sent an oral antibiotic to the pharmacy in [place] to help treat. Continue applying the antifungal cream to the umbilicus. [facility]04-26-2024 NoteHNO ID: [id number] Author: AMILCAR VERONICA MD Service: ? Author [...] DEFENSE TOPICAL) Apply to affected area. timolol/dorzolamide/latanop/PF (KAFATJJ-RGGTHQGGYD-CXJRYKE,PF,) 0.5-2-0.005 % drop Use in eyes. QUEtiapine [...] STAIN to assess for bacterial dermatitis. Amilcar Vernoica, [facility]04-26-2024 History of Present illness Narrative* [...] DEFENSE TOPICAL) Apply to affected area. timolol/dorzolamide/latanop/PF (CKJMEJN-AKYBCWALZY-ODGGLET,PF,) 0.5-2-0.005 % drop Use in eyes. QUEtiapine [...] dermatitis. Amilcar Veronica MD [facility] Hospital Discharge instructions Patient Education 07/29/2023 [...] For more information about diabetes, visit the [place] Diabetes Association website at www.diabetes.org. Or you can call [phone]. When to seek medical advice Call your [...] or seeing Confusion or loss of consciousness [phone] The [employer]. [address] [place] [address]. All rights reserved. This information is not intended as a substitute for professional medical care. Always follow yourhealthcare professional's instructions. Follow Up Care 07/29/2023 21:25:40 With:GREGORIO CAMARA MD Address: [facility] [address] [place] [address]- When:2-[address] [facility] 04-15-2024 Note Discharge Instructions Thank you for allowing [facility] to assist you with your healthcare needs. The following is importantdischarge information regarding your hospital visit. Diagnosis from Today's Visit Diabetes mellitus Medical problem - minor, needs insulin, does not have supplies at correction What to Do Next Instructions from Your [...] days Where: [facility] [address] [place] [address]- Allergies NKA Medications Please ask your primary [...] tablets. You can buy these at most drug[employer] 4 ounces (1/2 cup) of regular (not [...] For more information about diabetes, visit the [place] Diabetes Association website at www.diabetes.org. Or you can call 902-715-1995. When to seek medical advice Call your [...] or seeing Confusion or loss of consciousness [phone] The [employer]. [address] [place] [address], [place] [address]. All rights reserved. This information is not intended as a substitute for professional medical care. Always follow yourhealthcare professional's instructions. Additional Information VACCINATE! IT SAVES LIVES! Members of the community who have not yet received the COVID-19 vaccine and would like to receive it can visit one of [facility] vaccine clinics. There are many vaccine clinic locations within the [facility]. For locations and available times, please visit www.[email or web address].[place].gov/. It is important to note that some COVID mobile vaccine clinics are held outdoors and may be canceled in rainy or stormy conditions. To learn more about pediatric vaccinations (ages 5-11), we invite you to visit the [facility] webpage. https://www.[facility].org/pages/6590-Bxpmc-Vhryfyawctp-Uxvisvbhdz-Cslik-Thw stions.htmlTo learn more about the COVID-19 vaccine, we invite you to visit the CDC website for a list of frequently asked questions. https://www.cdc.gov/coronavirus/2019-ncov/vaccines/faq.html [facility] Patient Portal Access Instructions: Stay connected with your healthcare team and access your personal medical information anytime with the [facility] Patient Portal. If you would like a full copy of your medical records please contact the [facility] Medical Records Department Saturday through Saturday between 8a.m. and 4:30p.m. Please follow the directions below to access the portal: 1.Access the email account you provided upon registration to the hospital.2.Look for an invitation email from [facility].3.Open the email and access the invitation link: Accept Invitation to AleshaFliqq4.Fill in the required blanco to create your account. Sign into [email or web address] with your username and password that you [...] you will allow to register on the [facility] Patient Portal for access to your information. You can also access the [facility] Patient Portal on the [employer]. Simply click on Health Records under [employer]motion and then click on the [employer] logo. HOW TO SAFELY DISPOSE OF PRESCRIPTION [...] Call your local pharmacy or go to http://SoundHound.StylePuzzle/2Y1Vb0j to find one close to you.3.Make use of household items: Use cat litter or old coffee grounds to dispose medications if other options arenot available. Mix your drugs with these household products, seal them in an airtight container andthrow it into the garbage. Call [facility]: [phone] to be sure your drugs can be [...] aware that I should contact my doctor. 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04-15-2024 Hospital Discharge instructions Patient Education 07/29/2023 [...] and water are not available, use hand manager ethics. 2.Before you give yourself an insulin injection, [...] plastic cover from the needle. 11.Follow the material handler loader's instructions to prime the insulin pen with [...] have questions? Where to find more information [place] Diabetes Association (ADA): www.diabetes.org [place] Association of Diabetes Educators (AADE) Patient Resources: [...] 05/04/2016 Document Revised: 04/21/2018 Document Reviewed: 05/04/2016 [employer] Patient Education 2020 [employer]. 07/29/2023 16:37:16 Type 2 Diabetes Mellitus, Self Care, Adult, Iate-my-Aurs Type 2 Diabetes Mellitus, Self Care, Adult [...] and canola oil. Meet with a food safety field specialist (dietitian). He or she can help you [...] for cuts, bruises, redness, blisters, or sores. [place] your teeth and gums two times a day. Floss one or more times a day. Go to the dentist one or more times every 6 months. Stay at a healthy weight. General instructions Take jkkc-cgz-sgwfsum and prescription medicines only as told by your doctor. Share your diabetes care plan with: ?Your work or school. ?People you live with. Carry a card or wear jewelry that says you have diabetes. Keep all follow-up visits as told by your doctor. This is important. Questions to ask your doctor Do I need to meet with a peer educator? Where can I find a support group for people with diabetes? Where to find more information To learn more about diabetes, visit: [place] Diabetes Association: www.diabetes.org [place] Association of Diabetes Educators: www.diabeteseducator.org Summary When [...] 07/23/2016 Document Revised: 09/22/2018 Document Reviewed: 05/04/2016 [employer] Patient Education 2020 [employer]. 07/29/2023 16:37:13 Type 2 Diabetes Mellitus, Diagnosis, Adult, Veuf-fc-Xeqv Type 2 Diabetes Mellitus, Diagnosis, Adult Type [...] ?Do I need to meet with a peer educator? ?Where can I find a support group for people with diabetes? ?What equipment will I need to care for myself at home? ?What diabetes medicines do I need? When should I take them? ?How often do I need to check my blood sugar? ?What number can I call if I have questions? ?When is my next doctor's visit? General instructions Take fxdz-uew-uofxomj and prescription medicines only as told by [...] normally to insulin that it makes. Take yplg-wzr-spztuec and prescription medicines only as told by your doctor. Keep all follow-up visits as told by your doctor. This is important. This information is not intended to replace advice given to you by your health care provider. Make sure you discuss any questions you have with your health care provider. Document Released: 01/08/2009 Document Revised: 05/30/2018 Document Reviewed: 05/04/2016 [employer] Patient Education 2020 [employer]. 07/29/2023 16:36:55 Carbohydrate Counting for Diabetes Mellitus, [...] different for every person. A diet and infection control specialist (registered dietitian) can help you make [...] 15 g of carbohydrates: hamburger bun or Setswana muffin. oz (15 mL) syrup. oz (14 [...] 1.Identify the foods that contain carbohydrates: Rice. [place]. Milk. Strawberries. 2.Calculate how many servings you [...] you manage your diabetes. A diet and infection control specialist (registered dietitian) can help you make a meal plan and calculate how many carbohydrates you should have at each meal and snack. This information is not intended to replace advice given to you by your health care provider. Make sure you discuss any questions you have with your health care provider. Document Released: 04/01/2006 Document Revised: 10/24/2017 Document Reviewed: 09/12/2016 [employer] Patient Education 2020 [employer] 07/29/2023 16:36:53 Blood Glucose Monitoring, Adult [...] 04/03/2004 Document Revised: 01/23/2019 Document Reviewed: 09/10/2016 [employer] Patient Education 2020 [employer]ongs. 07/29/2023 16:36:45 Indwelling Urinary Catheter Care, Adult [...] on each side. Do this in a irawe-hj-rmpx direction. ?If you are male: ?Use one [...] Clean the drainage bag according to the material handler loader's instructions or as told byyour health care [...] and water are not available, use hand manager ethics. Always make sure there are no twists [...] 04/01/2006 Document Revised: 07/24/2019 Document Reviewed: 11/15/2017 [employer] Patient Education 2020 [employer]ongs. Follow Up Care 07/27/2023 19:42:45 With:Follow up Urology in 2 weeks. Carroll Catheter placed due to urinary retention. Address:Unknown When: Unknown With:KASSANDRA MCGOVERN MD, [facility] Address: [address] [place] [address]- When:5 to 7 days Comments:New diagnosis of diabetes mellitus With:GREGORIO CAMARA MD Address: ADULT GERIATRICS/COURT [facility] [address] [place] [address]- When:2-[address] [facility] 04-15-2024 Note Discharge Instructions Thank you for allowing [facility] to assist you with your healthcare needs. The following is importantdischarge information regarding your hospital visit. Your Care Team [facility] Your Diagnosis KEN (acute kidney [...] Why: New diagnosis of diabetes mellitus Where: [address] [place] [address]- Follow Up with GREGORIO CAMARA MD When Within 2-4 days Where: ADULT GERIATRICS/COURT [facility] [address] [place] [address]- The Following Activity and Diet Have Been [...] a day Duration: 30 Days Pickup at [facility]/pharmacy #4605 New DME (DME MISCellaneous) See instructions Pen needles. Pickup at [facility]/pharmacy #4605 New DME (DME MISCellaneous) See instructions Glucometer, alcohol swabs, lancets. Pickup at [facility]/pharmacy #4605 New insulin aspart (Novolog) (NovoLOG FlexPen 100 units/ mL injectable solution) 5 unit(s) Subcutaneous Three (3) times a day before meals Duration: [facility] New insulin glargine (Lantus Solostar Pen 100 units/ mL 3 mL Pen) 20 unit(s) Subcutaneous Daily at bedtime Pickup at [facility]/pharmacy #4605 New metFORMIN (MetFORMIN (Eqv-Glucophage XR) 500 mg oral tablet, EXTENDED RELEASE) 1 tab(s) by mouth With supper Pickup at [facility]/pharmacy #4605 430pm New metoprolol (metoprolol succinate 25 mg oral TABLET extended release) 0.25 tab(s) by mouth Twice daily with meals Pickup at [facility]/pharmacy #4605 8am * held evening dose due [...] by mouth Once a day Pharmacy Information [facility]/pharmacy #4605: [address], [place] [phone] Please take this list to your next [...] may report side effects to FDA at 2-402-WSV-4630. What other drugs will affect metoprolol? Tell your doctor about all your current medicines. Many drugs can affect metoprolol, especially: any other heart or blood pressure medications; epinephrine (Epi-Pen); an antidepressant; an ergot medicine--dihydroergotamine, ergonovine, ergotamine, methylergonovine; or an MAO inhibitor--isocarboxazid, linezolid, phenelzine, rasagiline, selegiline, tranylcypromine. This list is not complete and many other drugs may affect metoprolol. This includes prescription and knqp-llp-qlwiiqc medicines, vitamins, and herbal products. Not all [...] to ensure that the information provided by [employer]') is accurate, up-to-date, and complete, but no guarantee is made to that effect. Drug information contained herein may be time sensitive. [employer] information has been compiled for use by healthcare practitioners and consumers in the [place] and therefore [employer] does not warrant that uses outside of the [place] are appropriate, unless specifically indicated otherwise. [employer] drug information does not endorse drugs, diagnose patients or recommend therapy. [employer] drug information isan informational resource designed to [...] effective or appropriate for any given patient. [employer] does not assume any responsibility for any aspect of healthcare administered with the aid of information [employer] provides. The information contained herein is not intended to cover all possible uses, directions, precautions, warnings, drug interactions, allergic reactions, or adverse effects. If you have questions about the drugs you are taking, check with your doctor, nurse or pharmacist. Copyright 5410-4012 [employer] Version: 19.01. Revision Date: 11/21/2022. insulin glargine [...] may report side effects to FDA at 9-448-AWJ-4980. What other drugs will affect insulin glargine? Many drugs can affect your blood sugar and may also affect insulin glargine. This includes prescription and vkwy-kcb-nmhylhp medicines, vitamins, and herbal products. Tell your [...] to ensure that the information provided by [employer] is accurate, up-to-date, and complete, but no guarantee is made to that effect. Drug information contained herein may be time sensitive. [employer] information has been compiled for use by healthcare practitioners and consumers in the [place] and therefore [employer] does not warrant that uses outside of the [place] are appropriate, unless specifically indicated otherwise. [employer] drug information does not endorse drugs, diagnose patients or recommend therapy. [employer] drug information isan informational resource designed to [...] effective or appropriate for any given patient. [employer] does not assume any responsibility for any aspect of healthcare administered with the aid of information [employer] provides. The information contained herein is not intended to cover all possible uses, directions, precautions, warnings, drug interactions, allergic reactions, or adverse effects. If you have questions about the drugs you are taking, check with your doctor, nurse or pharmacist. Copyright 9430-3348 [employer]. Version: 17.. Revision Date: 11/23/2022. apixaban (a PIX a ban) Allan What is the most important information I should know about apixaban? Apixaban increases your risk of severe or fatal bleeding, especially if you take certain medicines at the same time (including some buda-imp-bhgtqnp medicines). Tell your doctor about all medicines [...] may report side effects to FDA at 9-705-KQY-3101. What other drugs will affect apixaban? Sometimes it is not safe to use certain medications at the same time. Some drugs can affect your blood levels of other drugs you take, which may increase side effects or make the medications less effective. Many other drugs (including some kmnp-vkq-blfxgcp medicines) can increase your risk of bleeding or blood clots. Tell your doctor about all medicines you have recently used, especially: any other medicines to treat or prevent blood clots; a blood thinner such as heparin or warfarin (Coumadin, Jantoven); an antidepressant; or aspirin or other NSAID (nonsteroidal anti-inflammatory drug) used buttermaker. This list is not complete and many other drugs may affect apixaban. This includes prescription and txly-lel-lmuoepx medicines, vitamins, and herbal products. Not all [...] to ensure that the information provided by [employer] is accurate, up-to-date, and complete, but no guarantee is made to that effect. Drug information contained herein may be time sensitive. [employer] information has been compiled for use by healthcare practitioners and consumers in the [place] and therefore [employer] does not warrant that uses outside of the [place] are appropriate, unless specifically indicated otherwise. [employer] drug information does not endorse drugs, diagnose patients or recommend therapy. [employer] drug information isan informational resource designed to [...] effective or appropriate for any given patient. [employer] does not assume any responsibility for any aspect of healthcare administered with the aid of information [facility] provides. The information contained herein is not intended to cover all possible uses, directions, precautions, warnings, drug interactions, allergic reactions, or adverse effects. If you have questions about the drugs you are taking, check with your doctor, nurse or pharmacist. Copyright [id number] [facility] [employer]. Version: 6.01. Revision Date: 12/06/2020. insulin aspart [...] may report side effects to FDA at 1-183-CNW-4273. What other drugs will affect insulin aspart? Insulin may not work as well when you use other medicines at the same time. Some drugs can also cause you to have fewer symptoms of hypoglycemia, making it harder to tell when your blood sugar is low. This includes prescription and ojei-hqz-osufxtm medicines, vitamins, and herbal products. Not all [...] to ensure that the information provided by [employer] ('[employer]') is accurate, up-to-date, and complete, but no guarantee is made to that effect. Drug information contained herein may be time sensitive. [employer] information has been compiled for use by healthcare practitioners and consumers in the [place] and therefore [employer] does not warrant that uses outside of the [place] are appropriate, unless specifically indicated otherwise. [employer] drug information does not endorse drugs, diagnose patients or recommend therapy. [employer] drug information isan informational resource designed to [...] effective or appropriate for any given patient. [facility] does not assume any responsibility for any aspect of healthcare administered with the aid of information [facility] provides. The information contained herein is not intended to cover all possible uses, directions, precautions, warnings, drug interactions, allergic reactions, or adverse effects. If you have questions about the drugs you are taking, check with your doctor, nurse or pharmacist. Copyright 2335-6730 [facility] [employer]. Version: 8.02. Revision Date: 07/20/2019. metformin (met [...] breathing, stomach pain (more content not included)... [facility]04-15-2024 Note* Exam Date Time Procedure Performing Provider Status 07/29/23 3:15 PM Echocardiogram, Adult - CV Auth (Verified) [facility] 04-14-2024 Note Date of Service 07/28/2023 Chief Complaint c/o weakness s/p vomiting x 3 days History of Present Illness 73-year-old male with past medical history significant for developmental delay, alcohol syndrome, depression, anxiety, stress incontinence, frontotemporal lobe dementia, meningioma (8 mm)- Follows with Dr. Fuller, sensorineural hearing loss, tobacco use, newly diagnosed type 2 diabetes mellitus. Patient presented to [facility] emergency department on 07/27/2023 with a 3-day history of nausea, vomiting, weakness, incontinence of bowel and bladder. Patient is a poor historian due to developmental delay. His competitive intelligence analyst was unable to provide much information. In [...] mental examination revealed the patient was drowsy. prison staff states this is baseline for him. [...] by AMY LERNER on 07/28/2023 03:[address] [facility]04-14-2024 Evaluation + Plan noteExtracted from: Title:History [...] and may include grammatical and/or spelling errors. [facility] 04-14-2024 Note ORIGINAL EXAMINATION: ONE XRAY [...] Sign Date: 07/28/2023 6:44:20 AM Ordering Provider: [facility]04-14-2024 Note WARNING: DATA QUALITY MAY AFFECT INTERPRETATION ATRIAL FIBRILLATION WITH RAPID VENTRICULAR RESPONSE WITH ABERRANT CONDUCTION OR VENTRICULAR PREMATURE COMPLEXES Borderline left axis deviation Abnormal R-wave progression, early transition Abnormal T, consider ischemia, lateral leads Electronic Signature: DERICK AZAR MD 07/29/2023 09:12:24[facility] 04-13-2024 Note ORIGINAL EXAMINATION: CT OF [...] Date: 07/27/2023 11:34:46 PM [facility] Note Sinus rhythm Left axis deviation Borderline T abnormalities, lateral leads Baseline wander in lead(s) I,III,aVL,V4,V5 Electronic Signature: YULIET TREVINO DO 07/27/2023 20:21:27[facility] 11-22-2022 Instructions* Patient Instructions* Garth Moreno [...] try to touch base with provider at correction to see what else we can do. [facility] History of Present illness Narrative* Garht Moreno MD - 03/06/2022 9:33 AM EST [...] SYED (generalized anxiety disorder) Here with Josefina, territory account manager at the correction - has only known him few months. [...] but often uses his diaper. Head at correction = Fany Ludn [phone]. Pt's psychiatrist = Dr Po Constantino [phone]. Neuropsych = Kenji Arevalo We reviewed [...] try to touch base with provider at correction to see what else we can do. Advised to follow up as needed. I called Dr Maria [phone], was on hold >10min, spoke w/ someone [...] at an earlier time. HPI: Per Guardian/group therapist (been with group since August) Since end [...] as appropriate. Please see relevant sections in [facility] EHR for details Current living environment: correction Review of Systems: Is dependent or requires assistance in the following BADL: none but needs reminders Ambulatory c? cane / walker: None at correction but uses wheelchair when traveling long distances [...] hearing loss, who presents with his group therapist for dementia evaluation per recommendations from Psychiatry. [...] cannot be made without consulting Psychiatry and correction director first. Plan: - Will reach out to Psychiatrist and/or correction director for medical records before making additional recommendations - Please discuss with PCP the following medication changes - Discontinue Oxybutynin - Increase Donepezil to 10 mg - Decrease Escitalopram to 10 mg Total time spent was 70 minutes, including chart review, time with patient, counseling and care coordination, and assessment/plan formulation and documentation Garth Moreno MD documented in [facility]12-[facility]21 NoteHNO ID: [id number] Author: Bella Thurman RN Service: ? Author Type: Registered Nurse Type: Nursing Progress Note Filed: 03/17/2021 1:09 PM Note Text: Discussed IV infiltration and f/u with Dr. Khan AND caregiver, oked f/u. [facility] [id number] History of Past illness Narrative* Problem Noted Date Resolved Date Entropion of left lower eyelid 03/17/2021 1 05/18/2020 documented as of this encounter (statuses as of 03/06/2022) [facility] No data available for this section [facility] Evaluation + Plan note Future Appointments Appointment Date:09/12/2023 09:00:00 AM Scheduled Provider: Location[facility] Appointment Type:CV PERSONAL CONSULTANT Appointment Date:11/12/2023 09:15:00 AM Scheduled Provider:KASSANDRA MCGOVERN MD Location:[facility] Appointment Type:ENDO PERSONAL CONSULTANT [facility] Evaluation + Plan note Future Appointments Appointment Date:11/12/2023 09:15:00 AM Scheduled Provider:KASSANDRA MCGOVERN MD Location:[facility] Appointment Type:ENDO PERSONAL CONSULTANT [facility] Evaluation + Plan note Future Appointments Appointment Date:12/17/2023 11:45:00 AM Scheduled Provider:KASSANDRA MCGOVERN MD Location:[facility] Appointment Type:ENDO OV Diagnostic Tests Pending * Antipancreatic Islet Cells 11/15/23 * SYED-65 Autoantibody 11/15/23 * Gliadin Antibody 11/15/23 * Tissue Transglutaminase Ab (IGA) 11/15/[address] [facility] Evaluation + Plan note Future Appointments Appointment Date:10/06/2024 10:00:00 AM Scheduled Provider:KASSANDRA MCGOVERN MD Location:[facility] Appointment Type:ENDO OV Future Scheduled Tests Laboratory* Thyroid Stimulating Hormone 09/17/24 * Thyroid Stimulating Hormone 03/17/24 * A1C Hemoglobin 09/17/24 * A1C Hemoglobin 03/17/24 * Complete Blood Count 03/17/24 * Albumin/Creatinine Ratio, Random Urine 09/17/24 * Vitamin D Level 09/17/24 * Complete Metabolic Panel 09/17/24 * Complete Metabolic Panel 03/17/[address] [facility] Evaluation + Plan note Future Appointments Appointment Date:10/22/2024 10:00:00 AM Scheduled Provider:KASSANDRA MCGOVERN MD Location:[facility] Appointment Type:ENDO OV Diagnostic Tests [...] Panel 09/17/24 * Complete Metabolic Panel 03/17/[address] [facility] Evaluation + Plan note Future Appointments Appointment Date:10/22/2024 10:00:00 AM Scheduled Provider:AKSSANDRA MCGOVERN MD Location:[facility] Appointment Type:ENDO OV Future Scheduled Tests Laboratory* Thyroid Stimulating Hormone 09/17/24 * Thyroid Stimulating Hormone 03/17/24 * A1C Hemoglobin 09/17/24 * A1C Hemoglobin 03/17/24 * Complete Blood Count 03/17/24 * Albumin/Creatinine Ratio, Random Urine 09/17/24 * Vitamin D Level 09/17/24 * Complete Metabolic Panel 09/17/24 * Complete Metabolic Panel 03/17/[address] [facility] Evaluation + Plan note Future Appointments Appointment Date:10/22/2024 10:00:00 AM Scheduled Provider:KASSANDRA MCGOVERN MD Location:[facility] Appointment Type:ENDO OV Diagnostic Tests Pending * [...] Panel 09/17/24 * Complete Metabolic Panel 03/17/[address] [facility] Evaluation + Plan note Future Appointments Appointment Date:11/27/2024 09:15:00 AM Scheduled Provider:RUFUS KELLEY Location:[facility] Appointment Type:CV OV Appointment Date:04/22/2025 11:00:00 AM Scheduled Provider:KASSANDRA MCGOVERN MD Location:[facility] Appointment Type:ENDO OV Future Scheduled Tests Laboratory* [...] Panel 03/17/24 * Complete Metabolic Panel 04/09/[address] [facility] Evaluation noteNo assessment information available [facility] Work Phone: Evaluation note* 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 Development delay Lack of normal physiological development, unspecified Unspecified intellectual disabilities Mixed 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) Major depressive disorder, remission status unspecified, unspecified whether recurrent SYED (generalized anxiety disorder) Generalized anxiety disorder documented in this encounter [facility]* Diagnosis Umbilical discharge- Primary Other symptoms involving abdomen and pelvis documented in this encounter [facility]* Diagnosis Acute conjunctivitis of right eye, unspecified acute conjunctivitis type- Primary [facility] No data available for this section [facility] Progress note No data available for this section [facility] Reason for referral (narrative)No reason for referral information availableWSalem City Hospital Work Phone: Summary Purpose Family History [...] Yes December 02 8 10:41am Power of Golf Player Assistant Yes December 02, 018 10:41am Advance Directive Response Recorded Date/ Time Advance Directives Yes November 19 12:19pm Living Will Yes December 02 8 9:41am Power of Golf Player Assistant Yes December 02, 018 9:41am Advance Directive [...] 13, 2024 12: 42pm FAX RESULTS TO [phone] ALSO September 292024 12:26pm Additional Source Comments (unrecognized sect ion and content) No Status Records FoundNo Status Records FoundNo Status Records FoundNo Status Records FoundNo Status Records FoundNo Status Records FoundNo Status Records Found INFORMATION SOURCE (unrecogn ized section and content) DATE CREATED AUTHOR 12/22/2019 [facility] DATE CREATED AUTHOR AUTHOR'S ORGANIZ ATION 12/22/2019 [facility] DATE CREATED AUTHOR AUTHOR'S ORGANIZ ATION 03/18/2021 [facility] DATE CREATED AUTHOR AUTHOR'S ORGANIZ ATION 11/20/2023 [facility] DATE CREATED AUTHOR AUTHOR'S ORGANIZ ATION 02/08/2024 [facility] DATE CREATED AUTHOR AUTHOR'S ORGANIZ ATION 11/06/2024 [facility] DATE CREATED AUTHOR AUTHOR'S ORGANIZ ATION 11/21/2024 [facility] Care Team (unrecognized sect ion and content) Care Team Personnel Name: GREGORIO CAMARA MD Member Role: Primary Care Physician Address: Address: [facility] [address] [place] [address]- Care Team Related Persons Name: FANY LUND Address: Home [address] [place] [address] Goals (unrecognized section and content) Goals may be documented in a n alternate section Source Comments (unrecognize d section and content) In the event this informatio n is protected by the Federal Confidentiality of Alcohol and Drug Abuse Patient Records regulations: The Federal rules restrict any use of the information to criminally investigate or prosecute any alcohol or drug abuse patient.[facility] HospitalIn the event this information is protected by the Federal Confidentiality of Alcohol and Drug Abuse Patient Records regulations: The Federal rules restrict any use of the information to criminally investigate or prosecute any alcohol or drug abuse patient.[facility] HospitalIn the event this information is protected by the Federal Confidentiality of Alcohol and Drug Abuse Patient Records regulations: The Federal rules restrict any use of the information to criminally investigate or prosecute any alcohol or drug abuse patient.[facility] HospitalIn the event this information is protected by the Federal Confidentiality of Alcohol and Drug Abuse Patient Records regulations: The Federal rules restrict any use of the information to criminally investigate or prosecute any alcohol or drug abuse patient.[facility] Reason for Visit (unrecogniz ed section and content) Reason Comments Geriatric Evaluation Reason Comments Abdominal Pain Naval pain x1 day Reason Comments Results MSSA Need for antibiotic Reason Comments Eye Problem JENNA eye redness Care Teams (unrecognized sec tion and content) Manager Roofing Relationship Specialty Start Date End Date Kim Hutchinson [address] [place], [place] [phone] PCP - General Family Medicine 03/17/21 Team [...] Primary Care Provider, Attendin g Provider Active Manager Roofing Relationship Specialty Start Date End Date Kim Hutchinson MD [address] [place], [place] [phone] PCP - General Family Medicine 03/17/21 Manager Roofing Relationship Specialty Start Date End Date Kim Hutchinson MD [address] [place], [place] [phone] PCP - General Family Medicine 03/17/21 Team [...] BE BASED ON THE PRIMARY CLINICAL RECORDS. [facility]. provides no warranty or guarantee of the accuracy or completeness of information in this document.
[2025-01-29 14:57] LABS: Hematocrit 42.6 % (40-54); Hemoglobin 14.0 g/dL (13.0-16.5); Immature Granulocytes Count 0.030 X10^3/uL (0.0-0.0); Mean Corp Hgb Conc 32.9 g/dL (32-36); Mean Corpuscular Volume 95.1 fL (80-94); Mean Platelet Vol. 10.0 fl (6.2-12.0); NRBC Flagged by Analyzer 0 % (0-5); Platelet Count 319 K/mm3 (150-450); RBC Distribution Width CV 13.0 % (11.6-14.6); RBC Distribution Width SD 44.7 fl (35.1-43.9); Red Blood Count 4.48 M/mm3 (4.6-6.2); White Blood Count 10.6 K/mm3 (4.4-11.0)
[2025-01-29 15:29] LABS: AST(SGOT) 16 U/L (<=37); Alanine Aminotransfer ALT/SGPT 17 U/L (<=46); Albumin, Serum 4.0 g/dL (3.4-4.8); Alkaline Phosphatase 74 U/L (40-129); Anion Gap 13 (5-15); BUN 20 mg/dL (4-19); BUN/Creat Ratio 20.2 RATIO (10-20); Calcium,Total 9.3 mg/dL (7.6-11.0); Carbon Dioxide 21.6 mmol/L (21.0-32.0); Chloride 106 mmol/L (98-108); Globulin 3.0 g/dL (2.2-4.2); Glucose 64 mg/dL (70-99); Potassium 3.8 mmol/L (3.3-5.1)
== END | disposition home or self-care (01) ==
LOC: MTLAB 12:33
PROVIDERS: PCP Family Medicine; Referring Provider Dermatology; Visit Provider Dermatology
DX: L10.2 Pemphigus foliaceous (principal)
CPT/HCPCS: 36415; 80053; 85025

== ENCOUNTER → 2025-04-01 | Outpatient (CLI) | payer MEDICARE, MEDICAID, SELFPAY ==
[2025-04-01 10:52] LABS: Hematocrit 39.2 % (40-54); Hemoglobin 13.0 g/dL (13.0-16.5); Immature Granulocytes Count 0.020 X10^3/uL (0.0-0.0); Mean Corp Hgb Conc 33.2 g/dL (32-36); Mean Corpuscular Volume 92.9 fL (80-94); Mean Platelet Vol. 9.4 fl (6.2-12.0); NRBC Flagged by Analyzer 0 % (0-5); Platelet Count 237 K/mm3 (150-450); RBC Distribution Width CV 13.1 % (11.6-14.6); RBC Distribution Width SD 44.1 fl (35.1-43.9); Red Blood Count 4.22 M/mm3 (4.6-6.2); White Blood Count 9.0 K/mm3 (4.4-11.0)
[2025-04-01 11:22] LABS: AST(SGOT) 12 U/L (<=37); Alanine Aminotransfer ALT/SGPT 13 U/L (<=46); Albumin, Serum 3.9 g/dL (3.4-4.8); Alkaline Phosphatase 62 U/L (40-129); Anion Gap 10 (5-15); BUN 18 mg/dL (4-19); BUN/Creat Ratio 17.9 RATIO (10-20); Calcium,Total 9.3 mg/dL (7.6-11.0); Carbon Dioxide 24.6 mmol/L (21.0-32.0); Chloride 106 mmol/L (98-108); Globulin 2.5 g/dL (2.2-4.2); Glucose 111 mg/dL (70-99); Potassium 4.5 mmol/L (3.3-5.1)
== END | disposition home or self-care (01) ==
LOC: MTLAB 09:15
PROVIDERS: PCP Family Medicine; Referring Provider Dermatology; Visit Provider Dermatology
DX: L10.2 Pemphigus foliaceous (principal)
CPT/HCPCS: 36415; 80053; 85025